=== PATIENT | male | born 1940 | race Caucasian/White ===

== ENCOUNTER 2016-08-14 20:28 | Inpatient (IN) | payer MEDICARE, MEDICAID ==
[~2016-08-14] VITALS: Ht 188 cm; Wt 97.1 kg
--- NOTE | 2016-08-14 21:19 | PHYS DOC ---
Past Medical History Past Medical History: GERD, Hypertension Additional Past Medical Histor: POOR HISTORIAN Past Surgical History: Other Additional Past Surgical Histo: UNKNOWN Additional Information: CHEWS TABACCO Alcohol Use: Heavy Drug Use: None Adult General Chief Complaint Chief Complaint: ABDOMINAL PAIN HPI HPI Patient is a 76 year old female who presents with chest and abdominal pain. Patient reports a few hours prior to arrival he started having upper abdominal pain that radiates up into his chest. He describes sharp pain with no clear inciting or mitigating factors. He also reports abdominal distention when the pain started. Is accompanied by nausea, and one episode of emesis. He has not taken anything for pain prior to arrival. He does report some similar episodes in the past when drinking. He last drank on . Review of Systems Review of Systems Constitutional: Denies fever or chills Eyes: Denies change in visual acuity or eye pain HENT: Denies nasal congestion or sore throat Respiratory: Denies cough or shortness of breath Cardiovascular: Substernal chest pain GI: Upper abdominal pain, nausea, vomiting. Denies bloody stools or diarrhea : Denies dysuria or hematuria Musculoskeletal: Denies back pain or joint pain Integument: Denies rash or skin lesions Neurologic: Denies headache, focal weakness or sensory changes Current Medications Current Medications Current Medications Medications (Trade) Dose Ordered Sig/Luzma Start Time Stop Time Status Last Admin Dose Admin Acetaminophen (Tylenol) 650 mg PRN Q4HRS PRN 08/15/16 00:15 08/16/16 00:14 Aspirin (Children'S Aspirin) 324 mg 1X ONCE 08/15/16 00:15 08/15/16 00:16 DC Famotidine (Pepcid) 20 mg 1X ONCE 08/14/16 21:30 08/14/16 21:31 DC 08/14/16 22:01 20 MG Hydralazine HCl (Apresoline) 10 mg 1X ONCE 08/14/16 21:30 08/14/16 21:31 DC 08/14/16 22:00 10 MG Info (Do NOT chart on this entry -- for MONITORING) 1 each PRN DAILY PRN 08/14/16 22:15 08/16/16 22:14 Iohexol (Omnipaque 300 Mg/ml) 75 ml 1X ONCE 08/14/16 22:15 3/11/17 22:16 DC 08/14/16 22:25 75 ML Morphine Sulfate 4 mg 4 mg PRN Q2HR PRN 08/15/16 00:15 08/16/16 00:14 Ondansetron HCl (Zofran) 4 mg PRN Q8HRS PRN 08/15/16 00:15 08/16/16 00:14 Sodium Chloride (Iv Sodium Chloride 0.9% 1000ml Bag) 1,000 ml @ 125 mls/hr Q8H 08/15/16 00:15 08/16/16 00:14 Allergies Allergies Allergies Coded Allergies Type Severity Reaction Last Updated Verified No Known Drug Allergies 08/14/16 No Physical Exam Physical Exam Constitutional: Well developed, well nourished, no acute distress, non-toxic appearance HENT: Normocephalic, atraumatic, bilateral external ears normal Eyes: EOMI, conjunctiva normal, no discharge Neck: Normal range of motion, no stridor Cardiovascular: Bradycardia, regular rhythm, no murmur Lungs & Thorax: Bilateral breath sounds clear to auscultation Abdomen: Bowel sounds normal, soft, non-distended, epigastric TTP without guarding or rebound Skin: Warm, dry, no erythema, no rash Extremities: No obvious deformity, no edema Neurologic: Alert and oriented X 3, no gross deficits noted Current Patient Data Vital Signs Vital Signs Date Time Temp Pulse Resp B/P Pulse Ox O2 Delivery O2 Flow Rate FiO2 08/15/16 00:12 66 146/82 97 Room Air 08/14/16 22:01 18 08/14/16 20:48 97.9 97.9 Lab Values Laboratory Tests Test 08/14/16 20:45 White Blood Count 10.2x10^3/uL (4.0-11.0) Red Blood Count 4.38x10^6/uL (4.30-5.70) Hemoglobin 14.9g/dL (13.0-17.5) Hematocrit 43.7% (39.0-53.0) Mean Corpuscular Volume 100fL (79-100) Mean Corpuscular Hemoglobin 34pg (25-35) Mean Corpuscular Hemoglobin Concent 34g/dL (31-37) Red Cell Distribution Width 12.9% (11.5-14.5) Platelet Count 218x10^3/uL (140-400) Neutrophils (%) (Auto) 74% (31-73) H Lymphocytes (%) (Auto) 19% (24-48) L Monocytes (%) (Auto) 6% (0-9) Eosinophils (%) (Auto) 1% (0-3) Basophils (%) (Auto) 1% (0-3) Neutrophils # (Auto) 7.5x10^3uL (1.8-7.7) Lymphocytes # (Auto) 1.9x10^3/uL (1.0-4.8) Monocytes # (Auto) 0.6x10^3/uL (0.0-1.1) Eosinophils # (Auto) 0.1x10^3/uL (0.0-0.7) Basophils # (Auto) 0.0x10^3/uL (0.0-0.2) Sodium Level 140mmol/L (136-145) Potassium Level 3.7mmol/L (3.5-5.1) Chloride Level 103mmol/L (98-107) Carbon Dioxide Level 26mmol/L (21-32) Anion Gap 11 (6-14) Blood Urea Nitrogen 21mg/dL (8-26) Creatinine 1.0mg/dL (0.7-1.3) Estimated GFR (Cockcroft-Gault) 72.5 BUN/Creatinine Ratio 21 (6-20) H Glucose Level 110mg/dL (70-99) H Calcium Level 9.2mg/dL (8.5-10.1) Total Bilirubin 0.4mg/dL (0.2-1.0) Aspartate Amino Transferase (AST) 27U/L (15-37) Alanine Aminotransferase (ALT) 57U/L (16-63) Alkaline Phosphatase 48U/L (46-116) Troponin I Quantitative < 0.017ng/mL (0.000-0.055) Total Protein 7.6g/dL (6.4-8.2) Albumin 3.8g/dL (3.4-5.0) Albumin/Globulin Ratio 1.0 (1.0-1.7) Lipase 230U/L (73-393) Laboratory Tests 08/14/16 20:45 Laboratory Tests 08/14/16 20:45 EKG EKG EKG (my read): Sinus bradycardia, rate 50, borderline LAD, IVCD, TWI inferior leads, no acute ST changes Radiology/Procedures Radiology/Procedures CT A/P: IMPRESSION Possible findings of cholecystitis. Evaluation of the GI tract is somewhat limited by lack of oral contrast. There are tubular fluid-filled structures near the cecum. These probably all represent distal small bowel, although a dilated inflamed appendix could have a similar appearance. CXR (my read): No acute abnormality RUQ US: Pending Course & Med Decision Making Course & Med Decision Making Pertinent Labs and Imaging studies reviewed. (See chart for details) Patient is 76-year-old male who presents with abdominal and chest pain. Patient simply be alcoholic gastritis, versus or other possibilities such as pancreatitis or ACS. Will obtain chest x-ray, CT abdomen/pelvis, EKG, labs to evaluate. Aspirin, pain meds, Pepcid, nausea meds ordered. Hydralazine ordered for elevated blood pressure. EKG and imaging results as above. Blood work unremarkable. No clinical evidence of appendicitis. Will obtain right upper quadrant ultrasound to evaluate gallbladder further (still pending at this time) . Discussed results with patient. Discussed with Dr. Greene, will admit under her care for further evaluation and treatment. Dragon Disclaimer Dragon Disclaimer This electronic medical record was generated, in whole or in part, using a voice recognition dictation system. Departure Departure Impression: Primary Impression: Chest pain Additional Impression: Abdominal pain Disposition: ADMITTED INPATIENT Admitting Physician: Renu Greene Condition: STABLE Referrals: TARIK HUDSON MD (PCP) Problem Qualifiers NADEGE MEDINA MD Aug 14, 2016 21:19
[2016-08-14 21:29] LABS: BASO % 1 % (0-3); EOS % 1 % (0-3); HEMATOCRIT 43.7 % (39.0-53.0); HEMOGLOBIN 14.9 g/dL (13.0-17.5); LYMPH # 1.9 x10^3/uL (1.0-4.8); LYMPH % 19 % (24-48); MEAN CORPUSCULAR HEMOGLOBIN 34 pg (25-35); MEAN CORPUSCULAR HGB CONC 34 g/dL (31-37); MEAN CORPUSCULAR VOLUME 100 fL (79-100); MONO % 6 % (0-9); NEUT % 74 % (31-73); PLATELET COUNT 218 x10^3/uL (140-400); RED BLOOD COUNT 4.38 x10^6/uL (4.30-5.70); RED CELL DISTRIBUTION WIDTH 12.9 % (11.5-14.5); WHITE BLOOD COUNT 10.2 x10^3/uL (4.0-11.0)
[2016-08-14] MEDS ORDERED: hydrALAZINE 20 MG/ML VIAL. IVP ONE (21:30)
[2016-08-14] MEDS ORDERED: FAMOTIDINE 20 MG/2 ML VIAL IVP ONE (21:30)
[2016-08-14] MEDS ORDERED: MORPHINE SULFATE 4 MG/ML DISP.SYRIN. IV ONE (21:30)
[2016-08-14] MEDS ORDERED: ONDANSETRON PF 4 MG/2 ML VIAL. IV ONE (21:30)
[2016-08-14 21:47] LABS: CALCIUM 9.2 mg/dL (8.5-10.1); GFR 72.5; POTASSIUM 3.7 mmol/L (3.5-5.1)
[2016-08-14 21:53] LABS: ALBUMIN 3.8 g/dL (3.4-5.0); TOTAL BILIRUBIN 0.4 mg/dL (0.2-1.0); TOTAL PROTEIN 7.6 g/dL (6.4-8.2)
[2016-08-14] MEDS ORDERED: CONTRAST GIVEN MC PRN (22:15)
[2016-08-14] MEDS ORDERED: IOHEXOL 300 MG/ML 75 ML VIAL IV ONE (22:15)
--- NOTE | 2016-08-14 22:44 | RAD ---
PROCEDURE CT abdomen and pelvis with IV contrast 08/14/2016. HISTORY Upper abdominal pain and distention. TECHNIQUE CT images were performed through the abdomen and pelvis using an infusion of 75 milliliters Omnipaque 300. Exposure: One or more of the following individualized dose reduction techniques were utilized for this exam: 1. Automated exposure control. 2. Adjustment of the mA and/or kV according to patient size. 3. Use of iterative reconstruction technique. COMPARISON FINDINGS Some increased peripheral lung markings are seen and may indicate mild fibrosis. The lung bases otherwise are clear. No focal liver parenchymal abnormality is seen. There may be mild fatty infiltration. The spleen appears normal. No calcified gallstones are seen, but there is suggestion of some gallbladder wall thickening and possibly surrounding edema. Both kidneys enhance with contrast. No mass or obstruction is seen. The adrenal glands and pancreas appear normal. No retroperitoneal or mesenteric adenopathy is seen. There is no apparent abdominal soft tissue mass or other inflammatory process. Evaluation of the GI tract is somewhat limited by lack of oral contrast. There is a tubular fluid-filled structure lying near the cecum. It is difficult to determine if this is small bowel or the appendix. It would be abnormally dilated for an appendix, although also seems to be too elongated and redundant to represent the appendix, and is probably distal small bowel. Images through the pelvis show no abnormality of the distal ureters or bladder. No pelvic or inguinal adenopathy is seen. There is no apparent pelvic soft tissue mass or other inflammatory process. There is some diverticulosis of the colon without evidence of active diverticulitis. IMPRESSION Possible findings of cholecystitis. Evaluation of the GI tract is somewhat limited by lack of oral contrast. There are tubular fluid-filled structures near the cecum. These probably all represent distal small bowel, although a dilated inflamed appendix could have a similar appearance. Electronically signed by: Erick Eng (Aug 14, 2016 22:42:12)
[2016-08-15] MEDS ORDERED: ACETAMINOPHEN 325 MG TABLET. PO PRN ×2 (00:15→11:15)
[2016-08-15] MEDS ORDERED: ONDANSETRON PF 4 MG/2 ML VIAL. IV PRN ×2 (00:15→11:15)
[2016-08-15] MEDS ORDERED: MORPHINE SULFATE 4 MG/ML DISP.SYRIN. IV PRN (00:15)
[2016-08-15] MEDS ORDERED: ASPIRIN 81 MG TAB.CHEW PO ONE (00:15)
--- NOTE | 2016-08-15 00:45 | ACF ---
Admit Criteria Forms Admit Criteria Forms Admit Criteria Forms CHEST PAIN Clinical Indications for Admission to Inpatient Care (Place 'X' for any and all applicable criteria): Admission is indicated for chest pain and ANY ONE of the following(1)(2)(3)(4)(5 ): [ ]I. Angina with acute coronary syndrome (Also use Myocardial Infarction or Angina guideline) [X]II. Hemodynamic instability [ ]III. Angina needing acute intervention as indicated by ALL of the following( 11)(12): [ ]a) Unstable angina is present as indicated by angina that is ANY ONE of the following: [ ]i) New onset [ ]ii) Nocturnal [ ]iii) Prolonged at rest [ ]iv) Progressive [ ]b) Angina warrants acute intervention as indicated by ANY ONE of the following: [ ]i) Recurrent angina (e.g, not responding as previously to treatment) [ ]ii) Angina at rest or with low-level activities despite initial medical therapy [ ]iii) New or presumably new ST-segment depression on ECG [ ]iv) Signs or symptoms of heart failure (eg, dyspnea, pulmonary edema) [ ]v) New or worsening mitral regurgitation [ ]vi) Hemodynamic instability [ ]vii) Dangerous arrhythmia (eg, sustained ventricular tachycardia) [ ]viii) History of percutaneous coronary intervention within 6 months [ ]ix) History of coronary artery bypass graft surgery [ ]x) WILFRED risk score of 2 or greater[A] [ ]xi) History of Diabetes(14) [ ]xii) High-risk cardiac ischemia findings on noninvasive testing (e.g, echocardiogram, treadmill testing, nuclear scan) [ ]xiii) Chronic renal insufficiency (ie, estimated GFR less than 60 mL/min/1.732m) [ ]xiv) Left ventricular ejection fraction less than 40% [ ]IV. Evidence of DC (eg, cardiac biomarkers positive, ST-segment elevation on ECG) also use Myocardial Infarction Criteria Form. [ ]V. Pulmonary edema [ ]. Respiratory distress [ ]VII. Chest pain indicative of serious diagnosis other than coronary artery disease (eg, aortic dissection) [ ]VIII. Contraindications and/or Inappropriate clinical situations for Observational Care in patients with Chest Pain, when ANY ONE of the following is required: [ ]a) Patient with risk factor for pulmonary embolism, acute coronary syndrome and myocardial infarction (18) [ ]b) Patient with Pulmonary embolism require an average LOS of 4.3 days, therefore emergency department observation management is inappropriate 18,23 [ ]c) Painful condition/s in the elderly, have the highest rate of recidivism after emergency department observation management (10.8%) 20,21,22 [ ]d) Elevated cardiac biomarker requires intensive and exhaustive care (19) [ ]IX. General contraindications and/or Inappropriate clinical situations for Observational Care in patients with Chest Pain, when ANY ONE of the following is required: [ ]a) Prediction of prolongation of LOS based on ANY ONE of the following may be considered as a contraindication for observational care 2, 3, 4, 5, 6, 7, 8, 9, 10, 11 [ ]i) Age > 65 yrs. [ ]ii) Patient arriving by ambulance [ ]iii) Patient with high acuity [ ]iv) Patient requiring vital sign monitoring [ ]v) Patient on IV medication [ ]b) Systolic blood pressures 180mmHg 3,12 [ ]c) Patient with altered mental status including delirium and other alteration of consciousness, (3) [ ]d) Patient whose discharge disposition will be to a jail home or rehabilitation home should not be managed in Emergency Department Observation Unit. CMS rule requires 3 days hospital stay before such placement. 3,13 [ ]e) Patient with failure to thrive due to broad array of etiologies 3,16,17 [ ]f) Inability to ambulate 3,14 Extended stay beyond goal length of stay may be needed for (1)(28): [ ]a) Specific condition diagnosed after evaluation (eg, pulmonary embolism, aortic dissection) [ ]b) Unstable angina [ ]c) Continued suspicion of acute coronary syndrome with inability to complete needed cardiac evaluation (eg, patient clinically unable to undergo stress testing) [ ]d) Myocardial infarction (Contents from ANGINA and CHEST PAIN clinical indications for admission to inpatient care have been integrated in this form) The original [employer] content created by [employer] has been revised. The portions of the content which have been revised are identified through the use of italic text or in bold, and [email or web address] has neither reviewed nor approved the modified material. All other unmodified content is copyright [employer]. Please see references footnoted in the original [employer] edition 2016 JOSIAS TREVIÑO Aug 15, 2016 00:45
[2016-08-15] MEDS: IV NORMAL SALINE 1000ML BAG 1,000 ML IV SCH ×4 (02:00→20:32)
[2016-08-15 03:00] VITALS: BP 156/96
[2016-08-15] MEDS ORDERED: Aspirin PO (03:22)
[2016-08-15] MEDS ORDERED: Vitamin PO (03:24)
[2016-08-15] MEDS ORDERED: Losartan PO (03:26)
[2016-08-15] MEDS ORDERED: Flomax PO (03:27)
[2016-08-15] MEDS ORDERED: Ranitidine PO (03:31)
[2016-08-15 07:00] VITALS: BP 165/92
--- NOTE | 2016-08-15 10:07 | RAD ---
EXAM: Right upper quadrant ultrasound. HISTORY: Right upper quadrant pain. COMPARISON: None. FINDINGS: Sonographic evaluation of the right upper quadrant was performed. Hyperechogenicity of the hepatic parenchyma is consistent with diffuse hepatic steatosis. This lowers sensitivity for focal lesions. None are seen. The liver is at least mildly enlarged spanning 18.5 cm. There are many stones throughout the gallbladder. There is no pericholecystic fluid or wall thickening. There is no sonographic Sanders sign. The common duct measures 4 mm. The visualized portions of the head of the pancreas reveal no abnormality. The right kidney measures 11.8 cm. Cortical thickness and echogenicity are preserved. There is no hydronephrosis. The visualized portions of the abdominal aorta and inferior vena cava are grossly patent and normal in caliber. IMPRESSION: 1. Cholelithiasis without sonographic evidence of acute cholecystitis. 2. Diffuse hepatic steatosis.
--- NOTE | 2016-08-15 10:08 | RAD ---
EXAM: Chest one view. HISTORY: Chest pain. COMPARISON: 08/14/2016. FINDINGS: A frontal view of the chest is obtained. There are mild interstitial opacities in the lung bases. There is no pneumothorax or pleural effusion. The heart is not enlarged. IMPRESSION: 1. Mild basilar interstitial opacities are consistent with interstitial lung disease on comparison with prior CT.
[2016-08-15 11:00] VITALS: BP 110/64
[2016-08-15] MEDS ORDERED: MORPHINE SULFATE 2 MG/ML DISP.SYRIN. IV PRN ×2 (11:15→14:00)
[2016-08-15] MEDS ORDERED: TRAMADOL 50 MG TABLET. PO PRN (11:15)
--- NOTE | 2016-08-15 12:45 | PDOC2 ---
GI CONSULT Date Date/Time DATE: 08/15/16 TIME: 12:34 Providers Attending Physician Tye Greene MD Referring Physician Consulting Physician Dr. Fair History of Present Illness HPI 76 yo WM with long history of vague abd symptoms- distension, mild pain- put on ranitidine last year without improvement but did not f/u with any testing. His pain and distension worsened and he presented for admission. He describes BM daily but some irregularly in timing, had some nausea with pain but denies chronic n/v or heartburn. Does admit to poor diet and regular binge alcohol use - drinks heavily 3 days per week- ? thinks his symptoms in past may have worsened after drinking or eating but this episode did not start until 2 days after last alcohol on . Had BM recently without change in symptoms and had self induced emesis without improvement, so he came to ER. No fever, jaundice, bleeding History Past Medical History mild HTN alcohol abuse Past Surgical History eye surgery as a child Social/Personal History regular binge drinker Review of Systems Gastrointestinal: Yes: abdominal pain (diffuse but more upper) Allergies Allergies Allergies Coded Allergies Type Severity Reaction Last Updated Verified No Known Drug Allergies 08/14/16 No Medications Medications Current Medications Ondansetron HCl (Zofran) 4 mg 1X ONCE IV Last administered on 08/14/16 22:00 ; Start 08/14/16 at 21:30; Stop 08/14/16 at 21:31; Status DC Famotidine (Pepcid) 20 mg 1X ONCE IVP Last administered on 08/14/16 22:01; Start 08/14/16 at 21:30; Stop 08/14/16 at 21:31; Status DC Morphine Sulfate 4 mg 1X ONCE IV Last administered on 08/14/16 22:01; Start 08/14/16 at 21:30; Stop 08/14/16 at 21:31; Status DC Hydralazine HCl (Apresoline) 10 mg 1X ONCE IVP Last administered on 08/14/16 22:00; Start 08/14/16 at 21:30; Stop 08/14/16 at 21:31; Status DC Iohexol (Omnipaque 300 Mg/ml) 75 ml 1X ONCE IV Last administered on 08/14/16 22:25; Start 08/14/16 at 22:15; Stop 08/14/16 at 22:16; Status DC Info (Do NOT chart on this entry -- for MONITORING) 1 each PRN DAILY PRN MC SEE COMMENTS; Start 08/14/16 at 22:15; Stop 08/16/16 at 22:14 Aspirin (Children'S Aspirin) 324 mg 1X ONCE PO Last administered on 08/15/16 01:06; Start 08/15/16 at 00:15; Stop 08/15/16 at 00:16; Status DC Ondansetron HCl (Zofran) 4 mg PRN Q8HRS PRN IV NAUSEA/VOMITING; Start 08/15/16 at 00:15; Stop 08/16/16 at 00:14 Morphine Sulfate 4 mg 4 mg PRN Q2HR PRN IV PAIN Last administered on 08/15/16 08:58; Start 08/15/16 at 00:15; Stop 08/16/16 at 00:14 Sodium Chloride (Iv Sodium Chloride 0.9% 1000ml Bag) 1,000 ml @ 125 mls/hr Q8H IV Last administered on 08/15/16 11:39; Start 08/15/16 at 00:15; Stop at 00:14 Acetaminophen (Tylenol) 650 mg PRN Q4HRS PRN PO FEVER; Start 08/15/16 at 00:15 ; Stop 08/16/16 at 00:14 Acetaminophen (Tylenol) 650 mg PRN Q6HRS PRN PO MILD PAIN / TEMP; Start at 11:15 Ondansetron HCl (Zofran) 4 mg PRN Q6HRS PRN IV NAUSEA/VOMITING; Start 08/15/16 at 11:15 Tramadol HCl (Ultram) 50 mg PRN Q6HRS PRN PO PAIN; Start 08/15/16 at 11:15 Morphine Sulfate 2 mg PRN Q2HR PRN IV PAIN; Start 08/15/16 at 11:15 Active Scripts Active Reported [Ranitidine] PO [Flomax] PO [Losartan] PO DAILY [Vitamin] 1 PO DAILY [Aspirin] Mg PO DAILY Physical Exam Physical Exam VSS chest=- clear Cor- RRR abd- soft, mildly distended. Mildly tender upper abd with moderately severe tenderness in RUQ to palp- no mass, good bowel sounds extrem- no CCE Neuro- non focal, slow speech pattern Labs Labs Laboratory Tests Test 08/14/16 20:45 08/15/16 06:27 White Blood Count 10.2x10^3/uL (4.0-11.0) Red Blood Count 4.38x10^6/uL (4.30-5.70) Hemoglobin 14.9g/dL (13.0-17.5) Hematocrit 43.7% (39.0-53.0) Mean Corpuscular Volume 100fL (79-100) Mean Corpuscular Hemoglobin 34pg (25-35) Mean Corpuscular Hemoglobin Concent 34g/dL (31-37) Red Cell Distribution Width 12.9% (11.5-14.5) Platelet Count 218x10^3/uL (140-400) Neutrophils (%) (Auto) 74% (31-73) Lymphocytes (%) (Auto) 19% (24-48) Monocytes (%) (Auto) 6% (0-9) Eosinophils (%) (Auto) 1% (0-3) Basophils (%) (Auto) 1% (0-3) Neutrophils # (Auto) 7.5x10^3uL (1.8-7.7) Lymphocytes # (Auto) 1.9x10^3/uL (1.0-4.8) Monocytes # (Auto) 0.6x10^3/uL (0.0-1.1) Eosinophils # (Auto) 0.1x10^3/uL (0.0-0.7) Basophils # (Auto) 0.0x10^3/uL (0.0-0.2) Sodium Level 140mmol/L (136-145) Potassium Level 3.7mmol/L (3.5-5.1) Chloride Level 103mmol/L (98-107) Carbon Dioxide Level 26mmol/L (21-32) Anion Gap 11 (6-14) Blood Urea Nitrogen 21mg/dL (8-26) Creatinine 1.0mg/dL (0.7-1.3) Estimated GFR (Cockcroft-Gault) 72.5 BUN/Creatinine Ratio 21 (6-20) Glucose Level 110mg/dL (70-99) Calcium Level 9.2mg/dL (8.5-10.1) Total Bilirubin 0.4mg/dL (0.2-1.0) Aspartate Amino Transf (AST/SGOT) 27U/L (15-37) Alanine Aminotransferase (ALT/SGPT) 57U/L (16-63) Alkaline Phosphatase 48U/L (46-116) Troponin I Quantitative < 0.017ng/mL (0.000-0.055) < 0.017ng/mL (0.000-0.055) Total Protein 7.6g/dL (6.4-8.2) Albumin 3.8g/dL (3.4-5.0) Albumin/Globulin Ratio 1.0 (1.0-1.7) Lipase 230U/L (73-393) Imaging Imaging US and CT- cholelithasis, hepatomegaly- Assessment Assessment Chronic abd symptoms more severe today- history sketchy but sounds like worse after certain meals and alcohol in past but no w/u persued. Did not improve with ranitidine a year ago. Now more severe pain and tenderness in RUQ- suspicious for cholecystitis No prior EGD or colonoscopy reported Problems: Plan Plan REcommend surgery consult for their opinion in this case PPI CLD Elective colonoscopy/EGD later as outpt Thank you for allowing us to participate in the care of your patient. We will continue to follow the patient with you and provide an appropriate recommendation as it becomes available. PUJA FAIR MD Aug 15, 2016 12:45
--- NOTE | 2016-08-15 12:50 | EKG ---
[facility] [address] [place] [address] Test Date: 2016-08-14 Test Time: 20:45:42 Pat Name: MARIEL DODGE Department: Room: Gender: M Branch General Manager: : [id number] Requested By: NADEGE MEDINA Order Number: [id number] Reading MD: Measurements Intervals [place] Rate: 50 P: -65 FL: 176 QRS: -4 QRSD: 128 T: -64 QT: 482 QTc: 442 Interpretive Statements SINUS RHYTHM LEFTWARD AXIS RIGHT BUNDLE BRANCH BLOCK QRS(T) CONTOUR ABNORMALITY CONSISTENT WITH INFERIOR INFARCT AGE UNDETERMINED RI6.01 Unconfirmed report No previous ECG available for comparison
--- NOTE | 2016-08-15 13:59 | PDOC1 ---
History and Physical Date of Admission Date of Admission 08/15/16 Identification/Chief Complaint Chief Complaint abd distention Problems: Source Source: Chart review, Patient History of Present Illness History of Present Illness HPI HPI Patient is a 76 year old female who presents with abdominal pain yesterday. very poor historian. Pt is a heavy drinker, 3 times a week at least , large amount. He feels his abd distended, with lower abd pain then moved to upper abd. He put his finger into his mouth to induce vomiting. he denies chest pain. irregular BM. but denies constipation or diarrhea. Past Medical History Cardiovascular: HTN Past Surgical History Past Surgical History: No pertinent history Family History Family History: No Significant Social History Smoke: No ALCOHOL: heavy Drugs: None Current Problem List Problem List Problems Medical Problems: (1) Abdominal pain Status: Acute (2) Chest pain Status: Acute Current Medications Current Medications Current Medications Medications (Trade) Dose Ordered Sig/Luzma Start Time Stop Time Status Last Admin Dose Admin Acetaminophen (Tylenol) 650 mg PRN Q6HRS PRN 08/15/16 11:15 Aspirin (Children'S Aspirin) 324 mg 1X ONCE 08/15/16 00:15 08/15/16 00:16 DC 08/15/16 01:06 324 MG Famotidine (Pepcid) 20 mg 1X ONCE 08/14/16 21:30 08/14/16 21:31 DC 08/14/16 22:01 20 MG Hydralazine HCl (Apresoline) 10 mg 1X ONCE 08/14/16 21:30 08/14/16 21:31 DC 08/14/16 22:00 10 MG Info (Do NOT chart on this entry -- for MONITORING) 1 each PRN DAILY PRN 08/14/16 22:15 08/16/16 22:14 Iohexol (Omnipaque 300 Mg/ml) 75 ml 1X ONCE 08/14/16 22:15 08/14/16 22:16 DC 08/14/16 22:25 75 ML Morphine Sulfate 2 mg PRN Q2HR PRN 08/15/16 11:15 Morphine Sulfate 4 mg 4 mg PRN Q2HR PRN 08/15/16 00:15 08/16/16 00:14 08/15/16 08:58 4 MG Ondansetron HCl (Zofran) 4 mg PRN Q6HRS PRN 08/15/16 11:15 Sodium Chloride (Iv Sodium Chloride 0.9% 1000ml Bag) 1,000 ml @ 125 mls/hr Q8H 08/15/16 00:15 08/16/16 00:14 08/15/16 11:39 125 MLS/HR Tramadol HCl (Ultram) 50 mg PRN Q6HRS PRN 08/15/16 11:15 Allergies Allergies Allergies Coded Allergies Type Severity Reaction Last Updated Verified No Known Drug Allergies 08/14/16 No ROS Review of System CONSTITUTIONAL: No fever or chills EYES: No recent changes SKIN: No rash or itching CARDIOVASCULAR: No chest pain, syncope, palpitations, or edema RESPIRATORY: No SOB or cough GASTROINTESTINAL: No nausea, vomiting or abdominal pain NEUROLOGICAL: No headaches or weakness ENDOCRINE: No cold or heat intolerance GENITOURINARY: No urgency or frequency of urination MUSCULOSKELETAL: No back pain or joint pain LYMPHATICS: No enlarged lymph nodes PSYCHIATRIC: No anxiety or depression Physical Exam Physical Exam GEN.: No apparent distress. Alert and oriented. HEENT: Head is normocephalic, atraumatic NECK: Supple. LUNGS: Clear to auscultation. HEART: RRR, S1, S2 present. Peripheral pulses intact ABDOMEN: Soft, Positive bowel sounds. mild tenderness EXTREMITIES: Without any cyanosis. NEUROLOGIC: Normal speech, normal tone PSYCHIATRIC: Normal affect, normal mood. SKIN: No ulcerations Vitals Vitals Vital Signs Date Time Temp Pulse Resp B/P Pulse Ox O2 Delivery O2 Flow Rate FiO2 08/15/16 09:50 16 Room Air 08/15/16 07:00 98.0 57 165/92 96 98.0 Labs Labs Laboratory Tests Test 08/14/16 20:45 08/15/16 06:27 White Blood Count 10.2x10^3/uL (4.0-11.0) Red Blood Count 4.38x10^6/uL (4.30-5.70) Hemoglobin 14.9g/dL (13.0-17.5) Hematocrit 43.7% (39.0-53.0) Mean Corpuscular Volume 100fL (79-100) Mean Corpuscular Hemoglobin 34pg (25-35) Mean Corpuscular Hemoglobin Concent 34g/dL (31-37) Red Cell Distribution Width 12.9% (11.5-14.5) Platelet Count 218x10^3/uL (140-400) Neutrophils (%) (Auto) 74% (31-73) Lymphocytes (%) (Auto) 19% (24-48) Monocytes (%) (Auto) 6% (0-9) Eosinophils (%) (Auto) 1% (0-3) Basophils (%) (Auto) 1% (0-3) Neutrophils # (Auto) 7.5x10^3uL (1.8-7.7) Lymphocytes # (Auto) 1.9x10^3/uL (1.0-4.8) Monocytes # (Auto) 0.6x10^3/uL (0.0-1.1) Eosinophils # (Auto) 0.1x10^3/uL (0.0-0.7) Basophils # (Auto) 0.0x10^3/uL (0.0-0.2) Sodium Level 140mmol/L (136-145) Potassium Level 3.7mmol/L (3.5-5.1) Chloride Level 103mmol/L (98-107) Carbon Dioxide Level 26mmol/L (21-32) Anion Gap 11 (6-14) Blood Urea Nitrogen 21mg/dL (8-26) Creatinine 1.0mg/dL (0.7-1.3) Estimated GFR (Cockcroft-Gault) 72.5 BUN/Creatinine Ratio 21 (6-20) Glucose Level 110mg/dL (70-99) Calcium Level 9.2mg/dL (8.5-10.1) Total Bilirubin 0.4mg/dL (0.2-1.0) Aspartate Amino Transf (AST/SGOT) 27U/L (15-37) Alanine Aminotransferase (ALT/SGPT) 57U/L (16-63) Alkaline Phosphatase 48U/L (46-116) Troponin I Quantitative < 0.017ng/mL (0.000-0.055) < 0.017ng/mL (0.000-0.055) Total Protein 7.6g/dL (6.4-8.2) Albumin 3.8g/dL (3.4-5.0) Albumin/Globulin Ratio 1.0 (1.0-1.7) Lipase 230U/L (73-393) Laboratory Tests Test 08/14/16 20:45 08/15/16 06:27 White Blood Count 10.2x10^3/uL (4.0-11.0) Red Blood Count 4.38x10^6/uL (4.30-5.70) Hemoglobin 14.9g/dL (13.0-17.5) Hematocrit 43.7% (39.0-53.0) Mean Corpuscular Volume 100fL (79-100) Mean Corpuscular Hemoglobin 34pg (25-35) Mean Corpuscular Hemoglobin Concent 34g/dL (31-37) Red Cell Distribution Width 12.9% (11.5-14.5) Platelet Count 218x10^3/uL (140-400) Neutrophils (%) (Auto) 74% (31-73) Lymphocytes (%) (Auto) 19% (24-48) Monocytes (%) (Auto) 6% (0-9) Eosinophils (%) (Auto) 1% (0-3) Basophils (%) (Auto) 1% (0-3) Neutrophils # (Auto) 7.5x10^3uL (1.8-7.7) Lymphocytes # (Auto) 1.9x10^3/uL (1.0-4.8) Monocytes # (Auto) 0.6x10^3/uL (0.0-1.1) Eosinophils # (Auto) 0.1x10^3/uL (0.0-0.7) Basophils # (Auto) 0.0x10^3/uL (0.0-0.2) Sodium Level 140mmol/L (136-145) Potassium Level 3.7mmol/L (3.5-5.1) Chloride Level 103mmol/L (98-107) Carbon Dioxide Level 26mmol/L (21-32) Anion Gap 11 (6-14) Blood Urea Nitrogen 21mg/dL (8-26) Creatinine 1.0mg/dL (0.7-1.3) Estimated GFR (Cockcroft-Gault) 72.5 BUN/Creatinine Ratio 21 (6-20) Glucose Level 110mg/dL (70-99) Calcium Level 9.2mg/dL (8.5-10.1) Total Bilirubin 0.4mg/dL (0.2-1.0) Aspartate Amino Transf (AST/SGOT) 27U/L (15-37) Alanine Aminotransferase (ALT/SGPT) 57U/L (16-63) Alkaline Phosphatase 48U/L (46-116) Troponin I Quantitative < 0.017ng/mL (0.000-0.055) < 0.017ng/mL (0.000-0.055) Total Protein 7.6g/dL (6.4-8.2) Albumin 3.8g/dL (3.4-5.0) Albumin/Globulin Ratio 1.0 (1.0-1.7) Lipase 230U/L (73-393) VTE Prophylaxis Ordered VTE Prophylaxis Devices: Yes VTE Pharmacological Prophylaxi: Yes Assessment/Plan Assessment/Plan 1. abd pain, 2/2 gall stone? 2, cholelithiasis on CT 3. GERD 4. HTN 5. OBESITY 6. ALcoholism plan: 1. gi, sx consult 2. dvt, gi ppx clear liquid diet now need home meds labs tmr pain control HERMINIO BUTLER MD Aug 15, 2016 13:59
[2016-08-15] MEDS: PANTOPRAZOLE 40 MG TABLET. PO SCH (14:33)
[2016-08-15 15:00] VITALS: BP 168/80
[2016-08-15] MEDS ORDERED: ENOXAPARIN 40 MG/0.4 ML DISP.SYRIN. SQ SCH (16:00)
--- NOTE | 2016-08-15 16:42 | PDOC ---
SURGICAL PROGRESS NOTE Subjective 76 yo M with RUQ pain US-gallstones but no inflammation TTP RUQ, epigastric I/R RUQ pain will check PIPPDA and consider lap joaquin Thanks for consult! [id number] Vital Signs Vital Signs Date Time Temp Pulse Resp B/P Pulse Ox O2 Delivery O2 Flow Rate FiO2 08/15/16 15:38 14 Room Air 08/15/16 15:00 98.0 62 168/80 94 98.0 I&O Intake and Output 08/15/16 07:00 Intake Total 0 ml Balance 0 ml Intake Oral 0 ml Labs Laboratory Tests Test 08/14/16 20:45 08/15/16 06:27 08/15/16 14:45 White Blood Count 10.2x10^3/uL (4.0-11.0) Red Blood Count 4.38x10^6/uL (4.30-5.70) Hemoglobin 14.9g/dL (13.0-17.5) Hematocrit 43.7% (39.0-53.0) Mean Corpuscular Volume 100fL (79-100) Mean Corpuscular Hemoglobin 34pg (25-35) Mean Corpuscular Hemoglobin Concent 34g/dL (31-37) Red Cell Distribution Width 12.9% (11.5-14.5) Platelet Count 218x10^3/uL (140-400) Neutrophils (%) (Auto) 74% (31-73) Lymphocytes (%) (Auto) 19% (24-48) Monocytes (%) (Auto) 6% (0-9) Eosinophils (%) (Auto) 1% (0-3) Basophils (%) (Auto) 1% (0-3) Neutrophils # (Auto) 7.5x10^3uL (1.8-7.7) Lymphocytes # (Auto) 1.9x10^3/uL (1.0-4.8) Monocytes # (Auto) 0.6x10^3/uL (0.0-1.1) Eosinophils # (Auto) 0.1x10^3/uL (0.0-0.7) Basophils # (Auto) 0.0x10^3/uL (0.0-0.2) Sodium Level 140mmol/L (136-145) Potassium Level 3.7mmol/L (3.5-5.1) Chloride Level 103mmol/L (98-107) Carbon Dioxide Level 26mmol/L (21-32) Anion Gap 11 (6-14) Blood Urea Nitrogen 21mg/dL (8-26) Creatinine 1.0mg/dL (0.7-1.3) Estimated GFR (Cockcroft-Gault) 72.5 BUN/Creatinine Ratio 21 (6-20) Glucose Level 110mg/dL (70-99) Calcium Level 9.2mg/dL (8.5-10.1) Total Bilirubin 0.4mg/dL (0.2-1.0) Aspartate Amino Transf (AST/SGOT) 27U/L (15-37) Alanine Aminotransferase (ALT/SGPT) 57U/L (16-63) Alkaline Phosphatase 48U/L (46-116) Troponin I Quantitative < 0.017ng/mL (0.000-0.055) < 0.017ng/mL (0.000-0.055) < 0.017ng/mL (0.000-0.055) Total Protein 7.6g/dL (6.4-8.2) Albumin 3.8g/dL (3.4-5.0) Albumin/Globulin Ratio 1.0 (1.0-1.7) Lipase 230U/L (73-393) Laboratory Tests Test 08/14/16 20:45 08/15/16 06:27 08/15/16 14:45 White Blood Count 10.2x10^3/uL (4.0-11.0) Red Blood Count 4.38x10^6/uL (4.30-5.70) Hemoglobin 14.9g/dL (13.0-17.5) Hematocrit 43.7% (39.0-53.0) Mean Corpuscular Volume 100fL (79-100) Mean Corpuscular Hemoglobin 34pg (25-35) Mean Corpuscular Hemoglobin Concent 34g/dL (31-37) Red Cell Distribution Width 12.9% (11.5-14.5) Platelet Count 218x10^3/uL (140-400) Neutrophils (%) (Auto) 74% (31-73) Lymphocytes (%) (Auto) 19% (24-48) Monocytes (%) (Auto) 6% (0-9) Eosinophils (%) (Auto) 1% (0-3) Basophils (%) (Auto) 1% (0-3) Neutrophils # (Auto) 7.5x10^3uL (1.8-7.7) Lymphocytes # (Auto) 1.9x10^3/uL (1.0-4.8) Monocytes # (Auto) 0.6x10^3/uL (0.0-1.1) Eosinophils # (Auto) 0.1x10^3/uL (0.0-0.7) Basophils # (Auto) 0.0x10^3/uL (0.0-0.2) Sodium Level 140mmol/L (136-145) Potassium Level 3.7mmol/L (3.5-5.1) Chloride Level 103mmol/L (98-107) Carbon Dioxide Level 26mmol/L (21-32) Anion Gap 11 (6-14) Blood Urea Nitrogen 21mg/dL (8-26) Creatinine 1.0mg/dL (0.7-1.3) Estimated GFR (Cockcroft-Gault) 72.5 BUN/Creatinine Ratio 21 (6-20) Glucose Level 110mg/dL (70-99) Calcium Level 9.2mg/dL (8.5-10.1) Total Bilirubin 0.4mg/dL (0.2-1.0) Aspartate Amino Transf (AST/SGOT) 27U/L (15-37) Alanine Aminotransferase (ALT/SGPT) 57U/L (16-63) Alkaline Phosphatase 48U/L (46-116) Troponin I Quantitative < 0.017ng/mL (0.000-0.055) < 0.017ng/mL (0.000-0.055) < 0.017ng/mL (0.000-0.055) Total Protein 7.6g/dL (6.4-8.2) Albumin 3.8g/dL (3.4-5.0) Albumin/Globulin Ratio 1.0 (1.0-1.7) Lipase 230U/L (73-393) Problem List Problems Medical Problems: (1) Abdominal pain Status: Acute (2) Chest pain Status: Acute Problems: JAYCEE RAMIREZ MD Aug 15, 2016 16:42
[2016-08-15 19:00] VITALS: BP 151/87
[2016-08-15 23:00] VITALS: BP 138/83
[2016-08-16 03:00] VITALS: BP 132/67
[2016-08-16 06:51] LABS: ALBUMIN 3.2 g/dL (3.4-5.0); CALCIUM 8.2 mg/dL (8.5-10.1); CREATININE 0.9 mg/dL (0.7-1.3); GFR 81.8; POTASSIUM 3.8 mmol/L (3.5-5.1); TOTAL BILIRUBIN 1.3 mg/dL (0.2-1.0); TOTAL PROTEIN 6.4 g/dL (6.4-8.2)
[2016-08-16 06:56] LABS: BASO % 0 % (0-3); EOS % 0 % (0-3); HEMATOCRIT 42.7 % (39.0-53.0); HEMOGLOBIN 14.3 g/dL (13.0-17.5); LYMPH # 1.5 x10^3/uL (1.0-4.8); LYMPH % 8 % (24-48); MEAN CORPUSCULAR HEMOGLOBIN 34 pg (25-35); MEAN CORPUSCULAR HGB CONC 34 g/dL (31-37); MEAN CORPUSCULAR VOLUME 100 fL (79-100); MONO % 7 % (0-9); NEUT % 85 % (31-73); PLATELET COUNT 201 x10^3/uL (140-400); RED BLOOD COUNT 4.26 x10^6/uL (4.30-5.70); WHITE BLOOD COUNT 18.8 x10^3/uL (4.0-11.0)
[2016-08-16 07:00] VITALS: BP 140/86
[2016-08-16] MEDS ORDERED: MORPHINE SULFATE 4 MG/ML DISP.SYRIN. IV ONE (08:30)
[2016-08-16] MEDS ORDERED: MORPHINE SULFATE 4 MG/ML DISP.SYRIN. ONE (08:34)
--- NOTE | 2016-08-16 10:07 | RAD ---
Indication: Abdominal pain for 3 days with nausea. Technique: Hepatobiliary scintigraphy utilized 5.5 mCi technetium 99m labeled Choletec IV. At 1 hour, 4 mg of IV morphine was administered to promote filling of the gallbladder. Findings: There is prompt uptake of radiotracer by the hepatic parenchyma and prompt visualization of the biliary system and duodenal sweep. At 1 hour, the gallbladder was still not visualized. Additional imaging post morphine does not visualize the gallbladder. Ultrasound performed one day earlier demonstrated cholelithiasis but no pericholecystic fluid. Impression: Nonvisualized gallbladder including post morphine administration. Findings are suspicious for acute cholecystitis.
[2016-08-16] MEDS: PANTOPRAZOLE 40 MG TABLET. PO SCH (10:26)
--- NOTE | 2016-08-16 10:26 | PDOC ---
Subjective: Subjective: Ongoing RUQ pain - not bad currently, perhaps had a brief increase in this during PIPIDA. Relates h/o alcohol abuse, has tried to quit before. Says drank 7 beers on . Less abd distention, no BM for a few days. Relates significant pain after eating a lot on Tuesday. Objective: Vital Signs: Vital Signs Date Time Temp Pulse Resp B/P Pulse Ox O2 Delivery O2 Flow Rate FiO2 08/16/16 08:30 16 Room Air 08/16/16 07:00 98.6 88 140/86 98 98.6 Labs: Laboratory Tests Test 08/15/16 14:45 08/16/16 06:00 Troponin I Quantitative < 0.017ng/mL White Blood Count 18.8x10^3/uL Red Blood Count 4.26x10^6/uL Hemoglobin 14.3g/dL Hematocrit 42.7% Mean Corpuscular Volume 100fL Mean Corpuscular Hemoglobin 34pg Mean Corpuscular Hemoglobin Concent 34g/dL Red Cell Distribution Width 13.0% Platelet Count 201x10^3/uL Neutrophils (%) (Auto) 85% Lymphocytes (%) (Auto) 8% Monocytes (%) (Auto) 7% Eosinophils (%) (Auto) 0% Basophils (%) (Auto) 0% Neutrophils # (Auto) 16.0x10^3uL Lymphocytes # (Auto) 1.5x10^3/uL Monocytes # (Auto) 1.3x10^3/uL Eosinophils # (Auto) 0.0x10^3/uL Basophils # (Auto) 0.0x10^3/uL Platelet Estimate Pending Sodium Level 137mmol/L Potassium Level 3.8mmol/L Chloride Level 104mmol/L Carbon Dioxide Level 22mmol/L Anion Gap 11 Blood Urea Nitrogen 15mg/dL Creatinine 0.9mg/dL Estimated GFR (Cockcroft-Gault) 81.8 BUN/Creatinine Ratio 17 Glucose Level 121mg/dL Calcium Level 8.2mg/dL Total Bilirubin 1.3mg/dL Aspartate Amino Transf (AST/SGOT) 26U/L Alanine Aminotransferase (ALT/SGPT) 53U/L Alkaline Phosphatase 49U/L Total Protein 6.4g/dL Albumin 3.2g/dL Albumin/Globulin Ratio 1.0 Imaging: CT A/P 08/14/16 IMPRESSION Possible findings of cholecystitis. Evaluation of the GI tract is somewhat limited by lack of oral contrast. There are tubular fluid-filled structures near the cecum. These probably all represent distal small bowel, although a dilated inflamed appendix could have a similar appearance. RUQ 08/15/16 IMPRESSION: 1. Cholelithiasis without sonographic evidence of acute cholecystitis. 2. Diffuse hepatic steatosis. PIPIDA 08/16/16 Impression: Nonvisualized gallbladder including post morphine administration. Findings are suspicious for acute cholecystitis. PE: GEN: NAD LUNGS: CTAB HEART: RRR ABD: distended, RUQ tenderness, BS quiet NEURO/PSYCH: A & O 3 A/P: RUQ pain w/ abnormal GB imaging -no previous endoscopy, on PPI here -surgery following Alcohol abuse Constipation -- Await surg recs. Will add Miralax. APPLE WILLIAM Aug 16, 2016 10:26
[2016-08-16 11:00] VITALS: BP 137/76
--- NOTE | 2016-08-16 12:17 | PDOC ---
SURGICAL PROGRESS NOTE Subjective some epigastric pain did have pain during hida Vital Signs Vital Signs Date Time Temp Pulse Resp B/P Pulse Ox O2 Delivery O2 Flow Rate FiO2 08/16/16 08:30 16 Room Air 08/16/16 07:00 98.6 88 140/86 98 98.6 I&O Intake and Output 08/16/16 07:00 Intake Total 1782 ml Output Total 1750 ml Balance 32 ml Intake Oral 1220 ml IV Total 562 ml Output Urine Total 1750 ml General: Alert, Oriented X3, Cooperative, No acute distress Abdomen: Soft, Other (tenderness to epigastric and ruq) Labs Laboratory Tests Test 08/14/16 20:45 08/15/16 06:27 08/15/16 14:45 08/16/16 06:00 White Blood Count 10.2x10^3/uL (4.0-11.0) 18.8x10^3/uL (4.0-11.0) Red Blood Count 4.38x10^6/uL (4.30-5.70) 4.26x10^6/uL (4.30-5.70) Hemoglobin 14.9g/dL (13.0-17.5) 14.3g/dL (13.0-17.5) Hematocrit 43.7% (39.0-53.0) 42.7% (39.0-53.0) Mean Corpuscular Volume 100fL (79-100) 100fL (79-100) Mean Corpuscular Hemoglobin 34pg (25-35) 34pg (25-35) Mean Corpuscular Hemoglobin Concent 34g/dL (31-37) 34g/dL (31-37) Red Cell Distribution Width 12.9% (11.5-14.5) 13.0% (11.5-14.5) Platelet Count 218x10^3/uL (140-400) 201x10^3/uL (140-400) Neutrophils (%) (Auto) 74% (31-73) 85% (31-73) Lymphocytes (%) (Auto) 19% (24-48) 8% (24-48) Monocytes (%) (Auto) 6% (0-9) 7% (0-9) Eosinophils (%) (Auto) 1% (0-3) 0% (0-3) Basophils (%) (Auto) 1% (0-3) 0% (0-3) Neutrophils # (Auto) 7.5x10^3uL (1.8-7.7) 16.0x10^3uL (1.8-7.7) Lymphocytes # (Auto) 1.9x10^3/uL (1.0-4.8) 1.5x10^3/uL (1.0-4.8) Monocytes # (Auto) 0.6x10^3/uL (0.0-1.1) 1.3x10^3/uL (0.0-1.1) Eosinophils # (Auto) 0.1x10^3/uL (0.0-0.7) 0.0x10^3/uL (0.0-0.7) Basophils # (Auto) 0.0x10^3/uL (0.0-0.2) 0.0x10^3/uL (0.0-0.2) Sodium Level 140mmol/L (136-145) 137mmol/L (136-145) Potassium Level 3.7mmol/L (3.5-5.1) 3.8mmol/L (3.5-5.1) Chloride Level 103mmol/L (98-107) 104mmol/L (98-107) Carbon Dioxide Level 26mmol/L (21-32) 22mmol/L (21-32) Anion Gap 11 (6-14) 11 (6-14) Blood Urea Nitrogen 21mg/dL (8-26) 15mg/dL (8-26) Creatinine 1.0mg/dL (0.7-1.3) 0.9mg/dL (0.7-1.3) Estimated GFR (Cockcroft-Gault) 72.5 81.8 BUN/Creatinine Ratio 21 (6-20) 17 (6-20) Glucose Level 110mg/dL (70-99) 121mg/dL (70-99) Calcium Level 9.2mg/dL (8.5-10.1) 8.2mg/dL (8.5-10.1) Total Bilirubin 0.4mg/dL (0.2-1.0) 1.3mg/dL (0.2-1.0) Aspartate Amino Transf (AST/SGOT) 27U/L (15-37) 26U/L (15-37) Alanine Aminotransferase (ALT/SGPT) 57U/L (16-63) 53U/L (16-63) Alkaline Phosphatase 48U/L (46-116) 49U/L (46-116) Troponin I Quantitative < 0.017ng/mL (0.000-0.055) < 0.017ng/mL (0.000-0.055) < 0.017ng/mL (0.000-0.055) Total Protein 7.6g/dL (6.4-8.2) 6.4g/dL (6.4-8.2) Albumin 3.8g/dL (3.4-5.0) 3.2g/dL (3.4-5.0) Albumin/Globulin Ratio 1.0 (1.0-1.7) 1.0 (1.0-1.7) Lipase 230U/L (73-393) Laboratory Tests Test 08/15/16 14:45 08/16/16 06:00 Troponin I Quantitative < 0.017ng/mL (0.000-0.055) White Blood Count 18.8x10^3/uL (4.0-11.0) Red Blood Count 4.26x10^6/uL (4.30-5.70) Hemoglobin 14.3g/dL (13.0-17.5) Hematocrit 42.7% (39.0-53.0) Mean Corpuscular Volume 100fL (79-100) Mean Corpuscular Hemoglobin 34pg (25-35) Mean Corpuscular Hemoglobin Concent 34g/dL (31-37) Red Cell Distribution Width 13.0% (11.5-14.5) Platelet Count 201x10^3/uL (140-400) Neutrophils (%) (Auto) 85% (31-73) Lymphocytes (%) (Auto) 8% (24-48) Monocytes (%) (Auto) 7% (0-9) Eosinophils (%) (Auto) 0% (0-3) Basophils (%) (Auto) 0% (0-3) Neutrophils # (Auto) 16.0x10^3uL (1.8-7.7) Lymphocytes # (Auto) 1.5x10^3/uL (1.0-4.8) Monocytes # (Auto) 1.3x10^3/uL (0.0-1.1) Eosinophils # (Auto) 0.0x10^3/uL (0.0-0.7) Basophils # (Auto) 0.0x10^3/uL (0.0-0.2) Sodium Level 137mmol/L (136-145) Potassium Level 3.8mmol/L (3.5-5.1) Chloride Level 104mmol/L (98-107) Carbon Dioxide Level 22mmol/L (21-32) Anion Gap 11 (6-14) Blood Urea Nitrogen 15mg/dL (8-26) Creatinine 0.9mg/dL (0.7-1.3) Estimated GFR (Cockcroft-Gault) 81.8 BUN/Creatinine Ratio 17 (6-20) Glucose Level 121mg/dL (70-99) Calcium Level 8.2mg/dL (8.5-10.1) Total Bilirubin 1.3mg/dL (0.2-1.0) Aspartate Amino Transf (AST/SGOT) 26U/L (15-37) Alanine Aminotransferase (ALT/SGPT) 53U/L (16-63) Alkaline Phosphatase 49U/L (46-116) Total Protein 6.4g/dL (6.4-8.2) Albumin 3.2g/dL (3.4-5.0) Albumin/Globulin Ratio 1.0 (1.0-1.7) Problem List Problems Medical Problems: (1) Abdominal pain Status: Acute (2) Chest pain Status: Acute Assessment/Plan cholecystitis, wbc up to 18, bili 1.3 NPO, start abx will review with Dr Raza regarding surgery for lap joaquin Problems: ARMANDO MCGEE APRN Aug 16, 2016 12:16
--- NOTE | 2016-08-16 12:19 | PDOC ---
PROGRESS NOTES Chief Complaint Chief Complaint - abdominal pain, 2/2 gallstone? - cholelithiasis on CT - GERD - HTN - OBESITY - Alcoholism History of Present Illness History of Present Illness Patient lying down in bed and in no acute distress when evaluated this AM. PIPIDA scan performed this morning with findings suspicious for acute cholecystitis. Pt continues to complain of RUQ pain. Has obvious abdominal distension, which he says has been improving. Complains of constipation, for which GI has started miralax. Vitals Vitals Vital Signs Date Time Temp Pulse Resp B/P Pulse Ox O2 Delivery O2 Flow Rate FiO2 08/16/16 08:30 16 Room Air 08/16/16 07:00 98.6 88 140/86 98 98.6 Physical Exam General: Alert, Cooperative, No acute distress Heart: Regular rate, Normal S1 Lungs: Clear Abdomen: Soft, Other (mild tenderness, mild distension) Extremities: No cyanosis, No edema Skin: No significant lesion Labs LABS Laboratory Tests Test 08/15/16 14:45 08/16/16 06:00 Troponin I Quantitative < 0.017ng/mL (0.000-0.055) White Blood Count 18.8x10^3/uL (4.0-11.0) Red Blood Count 4.26x10^6/uL (4.30-5.70) Hemoglobin 14.3g/dL (13.0-17.5) Hematocrit 42.7% (39.0-53.0) Mean Corpuscular Volume 100fL (79-100) Mean Corpuscular Hemoglobin 34pg (25-35) Mean Corpuscular Hemoglobin Concent 34g/dL (31-37) Red Cell Distribution Width 13.0% (11.5-14.5) Platelet Count 201x10^3/uL (140-400) Neutrophils (%) (Auto) 85% (31-73) Lymphocytes (%) (Auto) 8% (24-48) Monocytes (%) (Auto) 7% (0-9) Eosinophils (%) (Auto) 0% (0-3) Basophils (%) (Auto) 0% (0-3) Neutrophils # (Auto) 16.0x10^3uL (1.8-7.7) Lymphocytes # (Auto) 1.5x10^3/uL (1.0-4.8) Monocytes # (Auto) 1.3x10^3/uL (0.0-1.1) Eosinophils # (Auto) 0.0x10^3/uL (0.0-0.7) Basophils # (Auto) 0.0x10^3/uL (0.0-0.2) Sodium Level 137mmol/L (136-145) Potassium Level 3.8mmol/L (3.5-5.1) Chloride Level 104mmol/L (98-107) Carbon Dioxide Level 22mmol/L (21-32) Anion Gap 11 (6-14) Blood Urea Nitrogen 15mg/dL (8-26) Creatinine 0.9mg/dL (0.7-1.3) Estimated GFR (Cockcroft-Gault) 81.8 BUN/Creatinine Ratio 17 (6-20) Glucose Level 121mg/dL (70-99) Calcium Level 8.2mg/dL (8.5-10.1) Total Bilirubin 1.3mg/dL (0.2-1.0) Aspartate Amino Transf (AST/SGOT) 26U/L (15-37) Alanine Aminotransferase (ALT/SGPT) 53U/L (16-63) Alkaline Phosphatase 49U/L (46-116) Total Protein 6.4g/dL (6.4-8.2) Albumin 3.2g/dL (3.4-5.0) Albumin/Globulin Ratio 1.0 (1.0-1.7) Review of Systems Review of Systems denies fever, chills + constipation + RUQ abdominal pain denies chest pain Assessment and Plan Assessmemt and Plan ASSESSMENT: - abdominal pain, 2/2 gallstone? - cholelithiasis on CT - GERD - HTN - OBESITY - Alcoholism PLAN: - PIPIDA performed this AM; findings suspicious for acute cholecystitis. - Will await surgery recommendation - GI also on the case; appreciate subspecialty input - cont clear liquid diet for now - repeat daily labs - cont pain control Problems: Comment Review of Relevant I have reviewed the following items nika (where applicable) has been applied. Labs Laboratory Tests Test 08/14/16 20:45 08/15/16 06:27 08/15/16 14:45 08/16/16 06:00 White Blood Count 10.2x10^3/uL (4.0-11.0) 18.8x10^3/uL (4.0-11.0) Red Blood Count 4.38x10^6/uL (4.30-5.70) 4.26x10^6/uL (4.30-5.70) Hemoglobin 14.9g/dL (13.0-17.5) 14.3g/dL (13.0-17.5) Hematocrit 43.7% (39.0-53.0) 42.7% (39.0-53.0) Mean Corpuscular Volume 100fL (79-100) 100fL (79-100) Mean Corpuscular Hemoglobin 34pg (25-35) 34pg (25-35) Mean Corpuscular Hemoglobin Concent 34g/dL (31-37) 34g/dL (31-37) Red Cell Distribution Width 12.9% (11.5-14.5) 13.0% (11.5-14.5) Platelet Count 218x10^3/uL (140-400) 201x10^3/uL (140-400) Neutrophils (%) (Auto) 74% (31-73) 85% (31-73) Lymphocytes (%) (Auto) 19% (24-48) 8% (24-48) Monocytes (%) (Auto) 6% (0-9) 7% (0-9) Eosinophils (%) (Auto) 1% (0-3) 0% (0-3) Basophils (%) (Auto) 1% (0-3) 0% (0-3) Neutrophils # (Auto) 7.5x10^3uL (1.8-7.7) 16.0x10^3uL (1.8-7.7) Lymphocytes # (Auto) 1.9x10^3/uL (1.0-4.8) 1.5x10^3/uL (1.0-4.8) Monocytes # (Auto) 0.6x10^3/uL (0.0-1.1) 1.3x10^3/uL (0.0-1.1) Eosinophils # (Auto) 0.1x10^3/uL (0.0-0.7) 0.0x10^3/uL (0.0-0.7) Basophils # (Auto) 0.0x10^3/uL (0.0-0.2) 0.0x10^3/uL (0.0-0.2) Sodium Level 140mmol/L (136-145) 137mmol/L (136-145) Potassium Level 3.7mmol/L (3.5-5.1) 3.8mmol/L (3.5-5.1) Chloride Level 103mmol/L (98-107) 104mmol/L (98-107) Carbon Dioxide Level 26mmol/L (21-32) 22mmol/L (21-32) Anion Gap 11 (6-14) 11 (6-14) Blood Urea Nitrogen 21mg/dL (8-26) 15mg/dL (8-26) Creatinine 1.0mg/dL (0.7-1.3) 0.9mg/dL (0.7-1.3) Estimated GFR (Cockcroft-Gault) 72.5 81.8 BUN/Creatinine Ratio 21 (6-20) 17 (6-20) Glucose Level 110mg/dL (70-99) 121mg/dL (70-99) Calcium Level 9.2mg/dL (8.5-10.1) 8.2mg/dL (8.5-10.1) Total Bilirubin 0.4mg/dL (0.2-1.0) 1.3mg/dL (0.2-1.0) Aspartate Amino Transf (AST/SGOT) 27U/L (15-37) 26U/L (15-37) Alanine Aminotransferase (ALT/SGPT) 57U/L (16-63) 53U/L (16-63) Alkaline Phosphatase 48U/L (46-116) 49U/L (46-116) Troponin I Quantitative < 0.017ng/mL (0.000-0.055) < 0.017ng/mL (0.000-0.055) < 0.017ng/mL (0.000-0.055) Total Protein 7.6g/dL (6.4-8.2) 6.4g/dL (6.4-8.2) Albumin 3.8g/dL (3.4-5.0) 3.2g/dL (3.4-5.0) Albumin/Globulin Ratio 1.0 (1.0-1.7) 1.0 (1.0-1.7) Lipase 230U/L (73-393) Laboratory Tests Test 08/15/16 14:45 08/16/16 06:00 Troponin I Quantitative < 0.017ng/mL (0.000-0.055) White Blood Count 18.8x10^3/uL (4.0-11.0) Red Blood Count 4.26x10^6/uL (4.30-5.70) Hemoglobin 14.3g/dL (13.0-17.5) Hematocrit 42.7% (39.0-53.0) Mean Corpuscular Volume 100fL (79-100) Mean Corpuscular Hemoglobin 34pg (25-35) Mean Corpuscular Hemoglobin Concent 34g/dL (31-37) Red Cell Distribution Width 13.0% (11.5-14.5) Platelet Count 201x10^3/uL (140-400) Neutrophils (%) (Auto) 85% (31-73) Lymphocytes (%) (Auto) 8% (24-48) Monocytes (%) (Auto) 7% (0-9) Eosinophils (%) (Auto) 0% (0-3) Basophils (%) (Auto) 0% (0-3) Neutrophils # (Auto) 16.0x10^3uL (1.8-7.7) Lymphocytes # (Auto) 1.5x10^3/uL (1.0-4.8) Monocytes # (Auto) 1.3x10^3/uL (0.0-1.1) Eosinophils # (Auto) 0.0x10^3/uL (0.0-0.7) Basophils # (Auto) 0.0x10^3/uL (0.0-0.2) Sodium Level 137mmol/L (136-145) Potassium Level 3.8mmol/L (3.5-5.1) Chloride Level 104mmol/L (98-107) Carbon Dioxide Level 22mmol/L (21-32) Anion Gap 11 (6-14) Blood Urea Nitrogen 15mg/dL (8-26) Creatinine 0.9mg/dL (0.7-1.3) Estimated GFR (Cockcroft-Gault) 81.8 BUN/Creatinine Ratio 17 (6-20) Glucose Level 121mg/dL (70-99) Calcium Level 8.2mg/dL (8.5-10.1) Total Bilirubin 1.3mg/dL (0.2-1.0) Aspartate Amino Transf (AST/SGOT) 26U/L (15-37) Alanine Aminotransferase (ALT/SGPT) 53U/L (16-63) Alkaline Phosphatase 49U/L (46-116) Total Protein 6.4g/dL (6.4-8.2) Albumin 3.2g/dL (3.4-5.0) Albumin/Globulin Ratio 1.0 (1.0-1.7) Medications Current Medications Ondansetron HCl (Zofran) 4 mg 1X ONCE IV Last administered on 08/14/16 22:00 ; Start 08/14/16 at 21:30; Stop 08/14/16 at 21:31; Status DC Famotidine (Pepcid) 20 mg 1X ONCE IVP Last administered on 08/14/16 22:01; Start 08/14/16 at 21:30; Stop 08/14/16 at 21:31; Status DC Morphine Sulfate 4 mg 1X ONCE IV Last administered on 08/14/16 22:01; Start 08/14/16 at 21:30; Stop 08/14/16 at 21:31; Status DC Hydralazine HCl (Apresoline) 10 mg 1X ONCE IVP Last administered on 08/14/16 22:00; Start 08/14/16 at 21:30; Stop 08/14/16 at 21:31; Status DC Iohexol (Omnipaque 300 Mg/ml) 75 ml 1X ONCE IV Last administered on 08/14/16 22:25; Start 08/14/16 at 22:15; Stop 08/14/16 at 22:16; Status DC Info (Do NOT chart on this entry -- for MONITORING) 1 each PRN DAILY PRN MC SEE COMMENTS; Start 08/14/16 at 22:15; Stop 08/16/16 at 22:14 Aspirin (Children'S Aspirin) 324 mg 1X ONCE PO Last administered on 3/12/17at 01:06; Start 08/15/16 at 00:15; Stop 08/15/16 at 00:16; Status DC Ondansetron HCl (Zofran) 4 mg PRN Q8HRS PRN IV NAUSEA/VOMITING; Start 08/15/16 at 00:15; Stop 08/15/16 at 13:57; Status DC Morphine Sulfate 4 mg 4 mg PRN Q2HR PRN IV PAIN Last administered on 08/15/16 08:58; Start 08/15/16 at 00:15; Stop 08/16/16 at 00:14; Status DC Sodium Chloride (Iv Sodium Chloride 0.9% 1000ml Bag) 1,000 ml @ 125 mls/hr Q8H IV Last administered on 08/15/16 20:32; Start 08/15/16 at 00:15; Stop at 00:14; Status DC Acetaminophen (Tylenol) 650 mg PRN Q4HRS PRN PO FEVER; Start 08/15/16 at 00:15 ; Stop 08/15/16 at 13:57; Status DC Acetaminophen (Tylenol) 650 mg PRN Q6HRS PRN PO MILD PAIN / TEMP; Start at 11:15 Ondansetron HCl (Zofran) 4 mg PRN Q6HRS PRN IV NAUSEA/VOMITING Last administered on 08/15/16 15:55; Start 08/15/16 at 11:15 Tramadol HCl (Ultram) 50 mg PRN Q6HRS PRN PO PAIN Last administered on 14:36; Start 08/15/16 at 11:15 Morphine Sulfate 2 mg PRN Q2HR PRN IV PAIN; Start 08/15/16 at 11:15; Stop 08/15 at 20:32; Status DC Enoxaparin Sodium (Lovenox 40mg Syringe) 40 mg Q24H SQ Last administered on 14:34; Start 08/15/16 at 16:00 Pantoprazole Sodium (Protonix) 40 mg DAILYAC PO Last administered on 08/16/16 10:26; Start 08/15/16 at 15:00 Morphine Sulfate 2 mg PRN Q2HR PRN IV PAIN; Start 08/15/16 at 14:00 Morphine Sulfate 4 mg 1X ONCE IV Last administered on 08/16/16t 08:30; Start 08/16/16 at 08:30; Stop 08/16/16 at 08:34; Status DC Morphine Sulfate 4 mg STK-MED ONCE .ROUTE ; Start 08/16/16 at 08:34; Stop at 08:35; Status DC Polyethylene Glycol (miraLAX PACKET) 17 gm DAILY PO ; Start 08/16/16 at 12:00 Active Scripts Active Reported [Ranitidine] PO [Flomax] PO [Losartan] PO DAILY [Vitamin] 1 PO DAILY [Aspirin] Mg PO DAILY Vitals/I & O Vital Sign - Last 24 Hours 08/15/16 08/15/16 08/15/16 08/15/16 14:36 15:00 15:38 19:00 Temp 98.0 98.6 98.0 98.6 Pulse 62 69 Resp 14 24 14 20 B/P 168/80 151/87 Pulse Ox 94 94 O2 Delivery Room Air Room Air Room Air Room Air 08/15/16 08/15/16 08/16/16 08/16/16 20:00 23:00 03:00 07:00 Temp 99.2 99.2 98.6 99.2 99.2 98.6 Pulse 75 79 88 Resp 20 20 24 B/P 138/83 132/67 140/86 Pulse Ox 94 94 98 O2 Delivery Room Air Room Air Room Air Room Air 08/16/16 08/16/16 08:00 08:30 Resp 16 O2 Delivery Room Air Room Air Intake and Output 08/15/16 08/15/16 08/16/16 15:00 23:00 07:00 Intake Total 360 ml 1022 ml 400 ml Output Total 600 ml 800 ml 350 ml Balance -240 ml 222 ml 50 ml CASTLE,NIAL K III DO Aug 16, 2016 12:18
[2016-08-16] MEDS: POLYETHYLENE GLYCOL 3350 17 GM PACKET. PO SCH (12:20)
[2016-08-16] MEDS ORDERED: ONDANSETRON PF 4 MG/2 ML VIAL. ONE (13:33)
[2016-08-16] MEDS ORDERED: ROCURONIUM 50 MG/5 ML VIAL. ONE (13:33)
[2016-08-16] MEDS ORDERED: DEXAMETHASONE SOD PHOS 20 MG/5 ML VIAL. ONE (13:33)
[2016-08-16] MEDS ORDERED: PROPOFOL 20 ML IV ONE (13:33)
[2016-08-16] MEDS ORDERED: LIDOCAINE 2% 100 MG/5 ML DISP.SYRIN. ONE (13:33)
[2016-08-16] MEDS ORDERED: FAMOTIDINE 20 MG/2 ML VIAL ONE (13:33)
[2016-08-16] MEDS ORDERED: FENTANYL PF 100 MCG/2 ML VIAL. ONE ×3 (13:33→18:27)
[2016-08-16] MEDS ORDERED: SURGICEL HEMOSTAT 4X8 EACH. ONE ×2 (13:37→18:15)
[2016-08-16] MEDS ORDERED: BUPIVAC MPF-EPI 0.5%-1:200000 30 ML VIAL. ONE (13:38)
[2016-08-16] MEDS ORDERED: IOHEXOL 300 MG/ML 50 ML VIAL. ONE (13:38)
[2016-08-16] MEDS ORDERED: GLUCAGON,HUMAN RECOMBINANT 1 MG/ML VIAL. ONE (13:38)
[2016-08-16] MEDS: PIPERACILLIN/TAZOBACTAM 3.375 GM in IV NORMAL SALINE 50ML 50 ML IV SCH (13:47)
[2016-08-16] MEDS ORDERED: IV RINGERS,LACTATED 1000ML 1,000 ML IV SCH (13:53)
[2016-08-16] MEDS ORDERED: PROCHLORPERAZINE 10 MG/2 ML VIAL. IV PRN (14:00)
[2016-08-16] MEDS ORDERED: HYDROMORPHONE 2 MG/ML VIAL. IV PRN (14:00)
[2016-08-16] MEDS ORDERED: FENTANYL PF 100 MCG/2 ML VIAL. IV PRN (14:00)
[2016-08-16] MEDS ORDERED: ONDANSETRON PF 4 MG/2 ML VIAL. IV PRN ×2 (14:00→19:00)
[2016-08-16] MEDS ORDERED: LIDOCAINE 1% 1 ML SYRINGE. ID PRN (14:00)
[2016-08-16] MEDS ORDERED: MORPHINE SULFATE 2 MG/ML DISP.SYRIN. IV PRN (14:00)
[2016-08-16] MEDS ORDERED: SUCCINYLCHOLINE 200 MG/10 ML VIAL. ONE (14:50)
[2016-08-16] MEDS ORDERED: METRONIDAZOLE 500mg PREMIX 100 ML IV ONE (14:55)
--- NOTE | 2016-08-16 15:17 | CONS ---
DATE OF CONSULTATION: 08/15/2016 REFERRING PHYSICIANS: Dr. Bony Peace, ____, Dr. Greene, Dr. Nadege Sorensen, Dr. Eva Rodriguez. Thank you for the consult. CHIEF COMPLAINT: Epigastric abdominal pain, abdominal distension. DIAGNOSES: Abdominal pain, gallstones. HISTORY OF PRESENT ILLNESS: This is a 76-year-old male who presents with complaints of significant abdominal pain started around the lower abdomen, but has progressed up in the upper abdomen. Also reported extensive abdominal distention and self-induced vomiting. Reports persistent pain in the epigastric area. He reports having previous episodes of pain like this, but never up to this extent. He denies fevers, chills, diarrhea, or constipation. ALLERGIES: He has no known drug allergies. MEDICATIONS: Include ranitidine, blood pressure medicine. PAST MEDICAL ISTORY: Hypertension, reflux. PAST SURGICAL HISTORY: None. SOCIAL HISTORY: No tobacco, reported to be very heavy alcohol abuse. FAMILY HISTORY: Noncontributory. REVEW OF SYSTEMS: All systems reviewed and negative except for HPI. PHYSICAL EXAMINATION: GENERAL: Well-developed, morbidly obese male, mildly uncomfortable. VITAL SIGNS: He is afebrile. Vital signs within normal limits, although he does have some hypertension. He is overweight. Weight is 100 kg, BMI is 28. HEENT: Normocephalic, anicteric sclerae. Oropharynx clear. NECK: Supple. CHEST: Bilateral chest excursion. ABDOMEN: Soft, nondistended. There is mild tenderness to palpation of the epigastric or right upper quadrant area. EXTREMITIES: No clubbing, cyanosis, or edema. LABORATORY DATA: His white blood cell count is 10.2. Chemistries are essentially unremarkable. He has unremarkable liver function test. Chest x-ray demonstrates some interstitial lung disease, it is mild. Abdominopelvic CT, concerned for possible cholecystitis, gallbladder wall thickening, possible surrounding edema. An ultrasound demonstrates cholelithiasis without evidence of acute cholecystitis and diffuse hepatic steatosis. IMPRESSION AND RECOMMENDATIONS: A 76-year-old male with abdominal pain, distension. He is strongly encouraged on need for alcohol abstinence. I am going to check pipida scan to evaluate for gallbladder function. He may benefit from laparoscopic cholecystectomy. I will follow along for ____ intervention. Thank you for allowing me to participation in the care of this pleasant patient. JAYCEE RAMIREZ MD DR: JONATHAN/krystian JOB#: [id number] / [id number] EVA Altamirano MD, NADEGE BEASLEY MD, MD, CHUNMEI MD
[2016-08-16 16:23] LABS: INR 1.5 (0.8-1.1); PROTHROMBIN TIME PATIENT 16.9 SEC (11.7-14.0)
[2016-08-16] MEDS ORDERED: PHENYLEPHRINE in 0.9% NACL PF 1 MG/10 ML DISP.SYRIN. IV ONE (16:44)
[2016-08-16] MEDS ORDERED: NEOSTIGMINE METHYLSULFATE 5 MG/5 ML SYRINGE. ONE (16:59)
[2016-08-16] MEDS ORDERED: GLYCOPYRROLATE 1 MG/5 ML VIAL. ONE (16:59)
[2016-08-16 17:56] LABS: OVALOCYTES OCC; PLT ESTIMATE ADEQUATE (ADEQUATE); SCHISTOCYTES OCC; TOXIC GRANULATION SLIGHT
[2016-08-16] MEDS ORDERED: SUGAMMADEX SODIUM 200 MG/2 ML VIAL. IVP ONE (18:37)
--- NOTE | 2016-08-16 18:55 | RAD ---
PROCEDURE Intraoperative cholangiogram. HISTORY Cholecystectomy. TECHNIQUE Seven spot fluoroscopic images were obtained of the right upper quadrant. Total fluoroscopic time was 39 seconds. FINDINGS There is opacification of the intrahepatic and extrahepatic biliary ducts. No convincing biliary dilatation is seen. No filling defect to suggest choledocholithiasis is identified, although no contrast is seen in the duodenal sweep. IMPRESSION No contrast is seen in the duodenal sweep, although no filling defect to suggest choledocholithiasis is identified. Lack of opacification of duodenal sweep may be due to spasm at the sphincter of Oddi. If there is significant concern for choledocholithiasis, MRCP could be performed. Electronically signed by: Cruz Samuel MD (Aug 16, 2016 18:53:46)
[2016-08-16] MEDS: FENTANYL PF 100 MCG/2 ML VIAL. IV PRN ×4 (18:58→19:41)
--- NOTE | 2016-08-16 18:58 | RAD ---
PROCEDURE Abdomen radiograph. HISTORY Status post open cholecystectomy. COMPARISON Intraoperative cholangiogram August 16, 2016. FINDINGS AP portable supine abdomen radiograph. Surgical drain is seen in the right upper quadrant. There is residual contrast material within the biliary ducts. The no contrast is seen in the duodenal sweep. Bowel gas pattern is without evidence of obstruction. Cholecystectomy clips are seen. No retained instruments are identified. IMPRESSION 1. No retained instruments are identified. 2. No contrast seen in the duodenal sweep. Cause is not immediately identified. It would be difficult to exclude presence of distal obstructing stone. Electronically signed by: Cruz Samuel MD (Aug 16, 2016 18:56:17)
[2016-08-16] MEDS ORDERED: 0.9 % SODIUM CHLORIDE 10 ML DISP.SYRIN. IV PRN (19:00)
[2016-08-16] MEDS ORDERED: HYDROMORPHONE STANDARD PCA 30 ML IV PRN (19:00)
[2016-08-16] MEDS ORDERED: DIPHENHYDRAMINE 50 MG/ML VIAL IV PRN (19:00)
[2016-08-16] MEDS ORDERED: DIPHENHYDRAMINE HCL 25 MG CAPSULE PO PRN (19:00)
--- NOTE | 2016-08-16 19:15 | PDOC ---
BRIEF OPERATIVE NOTE Date: Aug 16, 2016 Pre-Op Diagnosis cholelithiasis, acute cholecystitis Post-Op Diagnosis same Procedure Performed l/s -> "open" cholecystectomy with cholangiograms Surgeon Ry Whittaker CFA Anesthesia Type: General Blood Loss 250cc IV Fluid 750cc crystalloid one unit of FFP Urine Output 150cc Specimens Obtained GB Findings gangrenous cholecystitis, possible choledocholithiasis Complications unable to pass contrast into duodenum on grams Additional Remarks Wk # [id number] NIMA MURO MD Aug 16, 2016 19:15
[2016-08-16 20:30] VITALS: BP 136/83
[2016-08-16] MEDS ORDERED: LORAZEPAM 2 MG/ML VIAL IV PRN (20:45)
--- NOTE | 2016-08-16 22:40 | OP ---
DATE OF SURGERY: 08/16/2016 PREOPERATIVE DIAGNOSIS: Cholelithiasis with acute cholecystitis. POSTOPERATIVE DIAGNOSIS: Cholelithiasis with acute cholecystitis. PROCEDURE: Laparoscopic converted to "open" procedure with cholangiogram. SURGEON: Jameson Muro MD LEAD PRESSER: Remedios CARRILLO____. ANESTHESIA: General. ESTIMATED BLOOD LOSS: 250 mL. IV FLUIDS: 750 of crystalloid and 1 unit of FFP. URINE OUTPUT: 150 mL. INDICATIONS: The patient is a 76-year-old gentleman, who presented with right upper quadrant pain. Ultrasound and CT suggested stones. Pipida scan this morning was consistent with acute cholecystitis. His white blood count went up today and he had some fever. As such, he was brought for cholecystectomy. OPERATIVE FINDINGS: The liver was smooth and sharp. The gallbladder was enveloped with omentum and markedly inflamed with some gangrenous changes. Stones were present. Visual inspection of the remainder of the abdomen failed to reveal obvious abnormalities. DESCRIPTION OF PROCEDURE: The patient was brought to the operating suite, given a general endotracheal anesthetic and the abdomen prepped and draped in the usual sterile fashion. A supraumbilical incision was made and a 5-mm Visiport was used to gain access into the abdominal cavity, taking care to avoid injury to abdominal contents. Pneumoperitoneum was established, camera inserted, and under direct vision, the epigastric, midclavicular, and lateral ports were placed. The gallbladder was aspirated of approximately 100 mL of dark bile to allow grasping the fundus. The gallbladder was retracted superolaterally, and we tried to expose the neck of the gallbladder and portal structures; however, due to the marked inflammatory changes and induration, I did not feel it was best to continue the laparoscopic approach and as such, I abandoned the laparoscope and converted it to an "open" procedure. Table returned to level. The epigastric and midclavicular port sites were connected and extended slightly into the right subcostal incision and the abdomen was entered. An Omni subcutaneous retractor was used for exposure. The gallbladder was grasped at the fundus and was scored with cautery and gently freed from the liver bed. The cystic artery was isolated, ligated, and divided. Careful dissection down to the neck of the gallbladder showed changes in the cystic duct consistent with some necrotic inflammation. We were able to identify the cystic duct and make a cholangiogram. This showed a normal biliary tree; however, there was no flow of contrast into the duodenum. The patient was given a milligram of glucagon and a second set of films were obtained; however again, we were unable to see the contrast in the small bowel. Consideration was given to open common duct exploration; however, given the marked inflammatory process ongoing, I felt it better to not expose the common duct at this time. As such, the catheter was removed and the cystic duct ____ was ligated with a 2-0 tie. A single large Ligaclip was placed proximal to the tie on the cystic duct, taking care to avoid injury or compromise the common duct. The area was then irrigated, evacuated, and checked for adequate hemostasis. When present, a 19-Urdu round Gopi drain was brought through the previous lateral port site skin incision and placed in the subhepatic space for postoperative drainage. Good hemostasis was present, and a correct sponge count was obtained. The incision was closed by running the posterior sheath peritoneum with 0 Vicryl. Anterior sheath was closed in the running fashion with looped 0-PDS tied in the middle. Skin closed loosely with manjit. Sterile dressing was applied. Postop foreign body film was negative for unexplained foreign body. Prior to emergence from anesthesia, a Cuevas catheter was placed. The patient was then awakened from his anesthetic and taken to the recovery room in satisfactory condition. JAMESON MURO MD DR: RONAL/krystian JOB#: [id number] / [id number]
[2016-08-16 23:00] VITALS: BP 150/87
[2016-08-17] MEDS: PIPERACILLIN/TAZOBACTAM 3.375 GM in IV NORMAL SALINE 50ML 50 ML IV SCH ×4 (00:04→17:09)
[2016-08-17 03:00] VITALS: BP 142/80
[2016-08-17 04:47] LABS: BASO % 0 % (0-3); EOS % 0 % (0-3); HEMATOCRIT 35.4 % (39.0-53.0); LYMPH # 1.1 x10^3/uL (1.0-4.8); LYMPH % 6 % (24-48); MEAN CORPUSCULAR HEMOGLOBIN 34 pg (25-35); MEAN CORPUSCULAR HGB CONC 34 g/dL (31-37); MEAN CORPUSCULAR VOLUME 99 fL (79-100); MONO % 6 % (0-9); NEUT % 88 % (31-73); PLATELET COUNT 176 x10^3/uL (140-400); RED BLOOD COUNT 3.57 x10^6/uL (4.30-5.70); RED CELL DISTRIBUTION WIDTH 12.8 % (11.5-14.5); WHITE BLOOD COUNT 18.1 x10^3/uL (4.0-11.0)
[2016-08-17] MEDS: POTASSIUM CL 20MEQ-0.45% NACL 1,000 ML IV SCH ×3 (04:50→14:00)
[2016-08-17 04:51] LABS: INR 1.5 (0.8-1.1); PROTHROMBIN TIME PATIENT 17.1 SEC (11.7-14.0)
[2016-08-17 04:56] LABS: CALCIUM 8.1 mg/dL (8.5-10.1); CREATININE 0.8 mg/dL (0.7-1.3); GFR 93.7; POTASSIUM 4.1 mmol/L (3.5-5.1)
[2016-08-17 05:02] LABS: ALBUMIN 2.6 g/dL (3.4-5.0); DIRECT BILIRUBIN 0.4 mg/dL (0.0-0.2); TOTAL BILIRUBIN 1.2 mg/dL (0.2-1.0); TOTAL PROTEIN 6.4 g/dL (6.4-8.2)
[2016-08-17] MEDS ORDERED: METRONIDAZOLE 500mg PREMIX 100 ML IV PRN (06:00)
[2016-08-17] MEDS: PANTOPRAZOLE 40 MG TABLET. PO SCH (06:07)
[2016-08-17 07:00] VITALS: BP 130/70
[2016-08-17] MEDS: POLYETHYLENE GLYCOL 3350 17 GM PACKET. PO SCH (09:03)
[2016-08-17] MEDS: ENOXAPARIN 40 MG/0.4 ML DISP.SYRIN. SQ SCH (09:03)
[2016-08-17 10:55] VITALS: BP 154/53
--- NOTE | 2016-08-17 11:26 | PDOC ---
PROGRESS NOTES Chief Complaint Chief Complaint - abdominal pain, POD #1 laparoscopic converted to open cholecystectomy - cholelithiasis on CT - GERD - HTN - OBESITY - Alcoholism History of Present Illness History of Present Illness No acute events overnight. Patient was taken to the OR yesterday for a laparoscopic cholecystectomy that was converted to open. Gangrenous cholecystitis was discovered. He is doing well and states his pain is controlled. He is requesting coffee, his diet orders will be deferred to general surgery recommendations. He has not passed flatus or had a bowel movement post-operatively. Vitals Vitals Vital Signs Date Time Temp Pulse Resp B/P Pulse Ox O2 Delivery O2 Flow Rate FiO2 08/17/16 10:55 98.1 77 16 154/53 96 Nasal Cannula 2.0 98.1 Physical Exam General: Alert, Oriented X3, Cooperative, No acute distress Heart: Regular rate, Normal S1, No murmurs Lungs: Clear, Other (no wheezing) Abdomen: Soft, Other (Right subcostal incision covered with CDI dressing, LIT drain in right upper abdomen with serosanguinous drainage, supraumbilical dressing in place CDI, appropriately TTP) Extremities: No cyanosis, No edema Skin: No significant lesion Labs LABS Laboratory Tests Test 08/16/16 15:50 08/17/16 03:45 Prothrombin Time 16.9SEC (11.7-14.0) 17.1SEC (11.7-14.0) Prothromb Time International Ratio 1.5 (0.8-1.1) 1.5 (0.8-1.1) White Blood Count 18.1x10^3/uL (4.0-11.0) Red Blood Count 3.57x10^6/uL (4.30-5.70) Hemoglobin 12.0g/dL (13.0-17.5) Hematocrit 35.4% (39.0-53.0) Mean Corpuscular Volume 99fL (79-100) Mean Corpuscular Hemoglobin 34pg (25-35) Mean Corpuscular Hemoglobin Concent 34g/dL (31-37) Red Cell Distribution Width 12.8% (11.5-14.5) Platelet Count 176x10^3/uL (140-400) Neutrophils (%) (Auto) 88% (31-73) Lymphocytes (%) (Auto) 6% (24-48) Monocytes (%) (Auto) 6% (0-9) Eosinophils (%) (Auto) 0% (0-3) Basophils (%) (Auto) 0% (0-3) Neutrophils # (Auto) 15.9x10^3uL (1.8-7.7) Lymphocytes # (Auto) 1.1x10^3/uL (1.0-4.8) Monocytes # (Auto) 1.1x10^3/uL (0.0-1.1) Eosinophils # (Auto) 0.0x10^3/uL (0.0-0.7) Basophils # (Auto) 0.0x10^3/uL (0.0-0.2) Sodium Level 137mmol/L (136-145) Potassium Level 4.1mmol/L (3.5-5.1) Chloride Level 102mmol/L (98-107) Carbon Dioxide Level 23mmol/L (21-32) Anion Gap 12 (6-14) Blood Urea Nitrogen 16mg/dL (8-26) Creatinine 0.8mg/dL (0.7-1.3) Estimated GFR (Cockcroft-Gault) 93.7 Glucose Level 134mg/dL (70-99) Calcium Level 8.1mg/dL (8.5-10.1) Total Bilirubin 1.2mg/dL (0.2-1.0) Direct Bilirubin 0.4mg/dL (0.0-0.2) Aspartate Amino Transf (AST/SGOT) 85U/L (15-37) Alanine Aminotransferase (ALT/SGPT) 98U/L (16-63) Alkaline Phosphatase 63U/L (46-116) Total Protein 6.4g/dL (6.4-8.2) Albumin 2.6g/dL (3.4-5.0) Review of Systems Review of Systems Denies chest pain and shortness of breath. Denies fever and chills. Some abdominal pain that is controlled. Assessment and Plan Assessmemt and Plan Problems Medical Problems: (1) Abdominal pain Status: Acute (2) Chest pain Status: Acute (3) Cholelithiasis with acute cholecystitis with biliary obstruction Status: Acute ASSESSMENT: - abdominal pain, POD #1 laparoscopic converted to open cholecystectomy - cholelithiasis on CT - GERD - HTN - OBESITY - Alcoholism PLAN: Surgery and GI following, their recommendations are appreciated Advancement of diet will be deferred to general surgery Continue pain control Continue DVT ppx with lovenox Continue to monitor daily labs PT/OT eval and treat Problems: Comment Review of Relevant I have reviewed the following items nika (where applicable) has been applied. Labs Laboratory Tests Test 08/15/16 14:45 08/16/16 06:00 08/16/16 15:50 08/17/16 03:45 Troponin I Quantitative < 0.017ng/mL (0.000-0.055) White Blood Count 18.8x10^3/uL (4.0-11.0) 18.1x10^3/uL (4.0-11.0) Red Blood Count 4.26x10^6/uL (4.30-5.70) 3.57x10^6/uL (4.30-5.70) Hemoglobin 14.3g/dL (13.0-17.5) 12.0g/dL (13.0-17.5) Hematocrit 42.7% (39.0-53.0) 35.4% (39.0-53.0) Mean Corpuscular Volume 100fL (79-100) 99fL (79-100) Mean Corpuscular Hemoglobin 34pg (25-35) 34pg (25-35) Mean Corpuscular Hemoglobin Concent 34g/dL (31-37) 34g/dL (31-37) Red Cell Distribution Width 13.0% (11.5-14.5) 12.8% (11.5-14.5) Platelet Count 201x10^3/uL (140-400) 176x10^3/uL (140-400) Neutrophils (%) (Auto) 85% (31-73) 88% (31-73) Lymphocytes (%) (Auto) 8% (24-48) 6% (24-48) Monocytes (%) (Auto) 7% (0-9) 6% (0-9) Eosinophils (%) (Auto) 0% (0-3) 0% (0-3) Basophils (%) (Auto) 0% (0-3) 0% (0-3) Neutrophils # (Auto) 16.0x10^3uL (1.8-7.7) 15.9x10^3uL (1.8-7.7) Lymphocytes # (Auto) 1.5x10^3/uL (1.0-4.8) 1.1x10^3/uL (1.0-4.8) Monocytes # (Auto) 1.3x10^3/uL (0.0-1.1) 1.1x10^3/uL (0.0-1.1) Eosinophils # (Auto) 0.0x10^3/uL (0.0-0.7) 0.0x10^3/uL (0.0-0.7) Basophils # (Auto) 0.0x10^3/uL (0.0-0.2) 0.0x10^3/uL (0.0-0.2) Segmented Neutrophils % 87% (35-66) Lymphocytes % 4% (24-48) Monocytes % 9% (0-10) Toxic Granulation Slight Platelet Estimate Adequate (ADEQUATE) Large Platelets Occ Ovalocytes Occ Schistocytes Occ Sodium Level 137mmol/L (136-145) 137mmol/L (136-145) Potassium Level 3.8mmol/L (3.5-5.1) 4.1mmol/L (3.5-5.1) Chloride Level 104mmol/L (98-107) 102mmol/L (98-107) Carbon Dioxide Level 22mmol/L (21-32) 23mmol/L (21-32) Anion Gap 11 (6-14) 12 (6-14) Blood Urea Nitrogen 15mg/dL (8-26) 16mg/dL (8-26) Creatinine 0.9mg/dL (0.7-1.3) 0.8mg/dL (0.7-1.3) Estimated GFR (Cockcroft-Gault) 81.8 93.7 BUN/Creatinine Ratio 17 (6-20) Glucose Level 121mg/dL (70-99) 134mg/dL (70-99) Calcium Level 8.2mg/dL (8.5-10.1) 8.1mg/dL (8.5-10.1) Total Bilirubin 1.3mg/dL (0.2-1.0) 1.2mg/dL (0.2-1.0) Aspartate Amino Transf (AST/SGOT) 26U/L (15-37) 85U/L (15-37) Alanine Aminotransferase (ALT/SGPT) 53U/L (16-63) 98U/L (16-63) Alkaline Phosphatase 49U/L (46-116) 63U/L (46-116) Total Protein 6.4g/dL (6.4-8.2) 6.4g/dL (6.4-8.2) Albumin 3.2g/dL (3.4-5.0) 2.6g/dL (3.4-5.0) Albumin/Globulin Ratio 1.0 (1.0-1.7) Prothrombin Time 16.9SEC (11.7-14.0) 17.1SEC (11.7-14.0) Prothromb Time International Ratio 1.5 (0.8-1.1) 1.5 (0.8-1.1) Direct Bilirubin 0.4mg/dL (0.0-0.2) Laboratory Tests Test 08/16/16 15:50 08/17/16 03:45 Prothrombin Time 16.9SEC (11.7-14.0) 17.1SEC (11.7-14.0) Prothromb Time International Ratio 1.5 (0.8-1.1) 1.5 (0.8-1.1) White Blood Count 18.1x10^3/uL (4.0-11.0) Red Blood Count 3.57x10^6/uL (4.30-5.70) Hemoglobin 12.0g/dL (13.0-17.5) Hematocrit 35.4% (39.0-53.0) Mean Corpuscular Volume 99fL (79-100) Mean Corpuscular Hemoglobin 34pg (25-35) Mean Corpuscular Hemoglobin Concent 34g/dL (31-37) Red Cell Distribution Width 12.8% (11.5-14.5) Platelet Count 176x10^3/uL (140-400) Neutrophils (%) (Auto) 88% (31-73) Lymphocytes (%) (Auto) 6% (24-48) Monocytes (%) (Auto) 6% (0-9) Eosinophils (%) (Auto) 0% (0-3) Basophils (%) (Auto) 0% (0-3) Neutrophils # (Auto) 15.9x10^3uL (1.8-7.7) Lymphocytes # (Auto) 1.1x10^3/uL (1.0-4.8) Monocytes # (Auto) 1.1x10^3/uL (0.0-1.1) Eosinophils # (Auto) 0.0x10^3/uL (0.0-0.7) Basophils # (Auto) 0.0x10^3/uL (0.0-0.2) Sodium Level 137mmol/L (136-145) Potassium Level 4.1mmol/L (3.5-5.1) Chloride Level 102mmol/L (98-107) Carbon Dioxide Level 23mmol/L (21-32) Anion Gap 12 (6-14) Blood Urea Nitrogen 16mg/dL (8-26) Creatinine 0.8mg/dL (0.7-1.3) Estimated GFR (Cockcroft-Gault) 93.7 Glucose Level 134mg/dL (70-99) Calcium Level 8.1mg/dL (8.5-10.1) Total Bilirubin 1.2mg/dL (0.2-1.0) Direct Bilirubin 0.4mg/dL (0.0-0.2) Aspartate Amino Transf (AST/SGOT) 85U/L (15-37) Alanine Aminotransferase (ALT/SGPT) 98U/L (16-63) Alkaline Phosphatase 63U/L (46-116) Total Protein 6.4g/dL (6.4-8.2) Albumin 2.6g/dL (3.4-5.0) Medications Current Medications Ondansetron HCl (Zofran) 4 mg 1X ONCE IV Last administered on 08/14/16 22:00 ; Start 08/14/16 at 21:30; Stop 08/14/16 at 21:31; Status DC Famotidine (Pepcid) 20 mg 1X ONCE IVP Last administered on 08/14/16 22:01; Start 08/14/16 at 21:30; Stop 08/14/16 at 21:31; Status DC Morphine Sulfate 4 mg 1X ONCE IV Last administered on 08/14/16 22:01; Start 08/14/16 at 21:30; Stop 08/14/16 at 21:31; Status DC Hydralazine HCl (Apresoline) 10 mg 1X ONCE IVP Last administered on 08/14/16 22:00; Start 08/14/16 at 21:30; Stop 08/14/16 at 21:31; Status DC Iohexol (Omnipaque 300 Mg/ml) 75 ml 1X ONCE IV Last administered on 08/14/16 22:25; Start 08/14/16 at 22:15; Stop 08/14/16 at 22:16; Status DC Info (Do NOT chart on this entry -- for MONITORING) 1 each PRN DAILY PRN MC SEE COMMENTS; Start 08/14/16 at 22:15; Stop 08/16/16 at 22:14; Status DC Aspirin (Children'S Aspirin) 324 mg 1X ONCE PO Last administered on 08/15/16 01:06; Start 08/15/16 at 00:15; Stop 08/15/16 at 00:16; Status DC Ondansetron HCl (Zofran) 4 mg PRN Q8HRS PRN IV NAUSEA/VOMITING; Start 08/15/16 at 00:15; Stop 08/15/16 at 13:57; Status DC Morphine Sulfate 4 mg 4 mg PRN Q2HR PRN IV PAIN Last administered on 08/15/16 08:58; Start 08/15/16 at 00:15; Stop 08/16/16 at 00:14; Status DC Sodium Chloride (Iv Sodium Chloride 0.9% 1000ml Bag) 1,000 ml @ 125 mls/hr Q8H IV Last administered on 08/15/16 20:32; Start 08/15/16 at 00:15; Stop at 00:14; Status DC Acetaminophen (Tylenol) 650 mg PRN Q4HRS PRN PO FEVER; Start 08/15/16 at 00:15 ; Stop 08/15/16 at 13:57; Status DC Acetaminophen (Tylenol) 650 mg PRN Q6HRS PRN PO MILD PAIN / TEMP; Start at 11:15 Ondansetron HCl (Zofran) 4 mg PRN Q6HRS PRN IV NAUSEA/VOMITING Last administered on 08/15/16 15:55; Start 08/15/16 at 11:15; Stop 08/16/16 at 19:01 ; Status DC Tramadol HCl (Ultram) 50 mg PRN Q6HRS PRN PO MODERATE - SEVERE PAIN Last administered on 08/15/16 14:36; Start 08/15/16 at 11:15 Morphine Sulfate 2 mg PRN Q2HR PRN IV PAIN; Start 08/15/16 at 11:15; Stop 08/15 at 20:32; Status DC Enoxaparin Sodium (Lovenox 40mg Syringe) 40 mg Q24H SQ Last administered on 14:34; Start 08/15/16 at 16:00; Stop 08/16/16 at 19:00; Status DC Pantoprazole Sodium (Protonix) 40 mg DAILYAC PO Last administered on 08/17/16 06:07; Start 08/15/16 at 15:00 Morphine Sulfate 2 mg PRN Q2HR PRN IV PAIN; Start 08/15/16 at 14:00; Stop 08/16 at 19:00; Status DC Morphine Sulfate 4 mg 1X ONCE IV Last administered on 08/16/16 08:30; Start 08/16/16 at 08:30; Stop 08/16/16 at 08:34; Status DC Morphine Sulfate 4 mg STK-MED ONCE .ROUTE ; Start 08/16/16 at 08:34; Stop at 08:35; Status DC Polyethylene Glycol 17 gm 17 gm DAILY PO Last administered on 08/17/16 09:03; Start 08/16/16 at 12:00 Piperacillin Sod/ Tazobactam Sod/ Sodium Chloride (Zosyn/Iv Sodium Chloride 0.9 % 50ml) 50 ml @ 100 mls/hr Q6HRS IV Last administered on 08/17/16 06:07; Start 08/16/16 at 12:15 Lidocaine HCl 100 mg STK-MED ONCE .ROUTE ; Start 08/16/16 at 13:33; Stop at 13:34; Status DC Dexamethasone Sodium Phosphate 20 mg 20 mg STK-MED ONCE .ROUTE ; Start 08/16/16 at 13:33; Stop 08/16/16 at 13:34; Status DC Propofol (Diprivan) 20 ml @ As Directed STK-MED ONCE IV ; Start 08/16/16 at 13: 33; Stop 08/16/16 at 13:34; Status DC Ondansetron HCl (Zofran) 4 mg STK-MED ONCE .ROUTE ; Start 08/16/16 at 13:33; Stop 08/16/16 at 13:34; Status DC Famotidine (Pepcid) 20 mg STK-MED ONCE .ROUTE ; Start 08/16/16 at 13:33; Stop at 13:34; Status DC Fentanyl Citrate (Fentanyl 2ml Vial) 100 mcg STK-MED ONCE .ROUTE ; Start at 13:33; Stop 08/16/16 at 13:34; Status DC Rocuronium [place] (Zemuron) 50 mg STK-MED ONCE .ROUTE ; Start 08/16/16 at 13:33 ; Stop 08/16/16 at 13:34; Status DC Cellulose 1 each STK-MED ONCE .ROUTE ; Start 08/16/16 at 13:37; Stop 08/16/16 at 13:38; Status DC Bupivacaine HCl/ Epinephrine Bitart (Sensorcain-Mpf Epi 0.5%-[id number]) 30 ml STK -MED ONCE .ROUTE Last administered on 08/16/16 16:51; Start 08/16/16 at 13:38 ; Stop 08/16/16 at 13:39; Status DC Iohexol (Omnipaque 300 Mg/ml) 50 ml STK-MED ONCE .ROUTE Last administered on 16:51; Start 08/16/16 at 13:38; Stop 08/16/16 at 13:39; Status DC Glucagon (Glucagen) 1 mg STK-MED ONCE .ROUTE Last administered on 08/16/16 18: 00; Start 08/16/16 at 13:38; Stop 08/16/16 at 13:39; Status DC Ondansetron HCl (Zofran) 4 mg PRN Q6HRS PRN IV Nausea; Start 08/16/16 at 14:00 ; Stop 08/17/16 at 13:59 Fentanyl Citrate (Fentanyl 2ml Vial) 25 mcg PRN Q5MIN PRN IV MILD PAIN; Start 08/16/16 at 14:00; Stop 08/17/16 at 13:59 Fentanyl Citrate (Fentanyl 2ml Vial) 50 mcg PRN Q5MIN PRN IV MODERATE PAIN Last administered on 08/16/16 19:41; Start 08/16/16 at 14:00; Stop 08/17/16 at 13:59 Morphine Sulfate 1 mg 1 mg PRN Q10MIN PRN IV SEVERE PAIN; Start 08/16/16 at 14: 00; Stop 08/17/16 at 13:59 Lactated Ringer's (Iv Lactated Ringers) 1,000 ml @ 30 mls/hr Q24H IV Last administered on 08/16/16 14:06; Start 08/16/16 at 13:53; Stop 08/17/16 at 01:52 ; Status DC Lidocaine HCl 2 ml 1X PRN PRN ID IV START; Start 08/16/16 at 14:00; Stop at 13:59 Hydromorphone HCl (Dilaudid) 0.5 mg PRN Q10MIN PRN IV SEV PAIN,Second choice; Start 08/16/16 at 14:00; Stop 08/17/16 at 13:59 Prochlorperazine Edisylate 5 mg 5 mg PACU PRN PRN IV NAUSEA Last administered on 08/16/16 18:57; Start 08/16/16 at 14:00; Stop 08/17/16 at 13:59 Metronidazole (FLAGYL 500Mmg PREMIX) 100 ml @ 100 mls/hr 1X PREOP PRN IV prophylaxis\ Last administered on 08/16/16 16:47; Start 08/17/16 at 06:00; Stop 08/17/16 at 18:00 Succinylcholine Chloride 200 mg 200 mg STK-MED ONCE .ROUTE ; Start 08/16/16 at 14:50; Stop 08/16/16 at 14:51; Status DC Metronidazole (FLAGYL 500Mmg PREMIX) 100 ml @ As Directed STK-MED ONCE IV ; Start 08/16/16 at 14:55; Stop 08/16/16 at 14:56; Status DC Phenylephrine HCl 1 mg STK-MED ONCE IV ; Start 08/16/16 at 16:44; Stop 08/16/16 at 16:45; Status DC Fentanyl Citrate (Fentanyl 2ml Vial) 100 mcg STK-MED ONCE .ROUTE ; Start at 16:58; Stop 08/16/16 at 16:59; Status DC Neostigmine Methylsulfate 5 mg STK-MED ONCE .ROUTE ; Start 08/16/16 at 16:59; Stop 08/16/16 at 17:00; Status DC Glycopyrrolate (Robinul) 1 mg STK-MED ONCE .ROUTE ; Start 08/16/16 at 16:59; Stop 08/16/16 at 17:00; Status DC Cellulose 1 each STK-MED ONCE .ROUTE ; Start 08/16/16 at 18:15; Stop 08/16/16 at 18:16; Status DC Fentanyl Citrate (Fentanyl 2ml Vial) 100 mcg STK-MED ONCE .ROUTE ; Start at 18:27; Stop 08/16/16 at 18:28; Status DC Sugammadex Sodium ([place]) 200 mg STK-MED ONCE IVP ; Start 08/16/16 at 18:37; Stop 08/16/16 at 18:38; Status DC Diphenhydramine HCl (Benadryl) 25 mg PRN Q6HRS PRN PO ITCHING; Start 08/16/16 at 19:00 Diphenhydramine HCl (Benadryl) 25 mg PRN Q6HRS PRN IV ITCHING; Start 08/16/16 at 19:00 Enoxaparin Sodium (Lovenox 40mg Syringe) 40 mg Q24H SQ Last administered on 09:03; Start 08/17/16 at 09:00 Sodium Chloride 3 ml 3 ml QSHIFT PRN IV AFTER MEDS AND BLOOD DRAWS; Start 08/16 at 19:00 Potassium Chloride/Sodium Chloride 1,000 ml @ 100 mls/hr Q10H IV ; Start at 18:50 Hydromorphone HCl (Dilaudid Standard [employer]) 30 ml @ 0 mls/hr CONT PRN PRN IV PROTOCOL Last administered on 08/16/16 19:28; Start 08/16/16 at 19:00 Ondansetron HCl (Zofran) 4 mg PRN Q6HRS PRN IV NAUESA, 1ST CHOICE; Start at 19:00 Lorazepam (Ativan) 1 mg PRN Q6HRS PRN IV ANXIETY / AGITATION; Start 08/16/16 at 20:45 Active Scripts Active Reported [Ranitidine] PO [Flomax] PO [Losartan] PO DAILY [Vitamin] 1 PO DAILY [Aspirin] Mg PO DAILY Vitals/I & O Vital Sign - Last 24 Hours 08/16/16 08/16/16 08/16/16 08/16/16 14:50 18:50 18:58 19:05 Temp 100.3 100.5 100.3 100.5 Pulse 70 78 72 Resp 20 16 18 B/P 127/72 155/74 144/78 Pulse Ox 94 99 98 99 O2 Delivery Room Air Simple Mask Simple Mask Simple Mask O2 Flow Rate 10 10.0 10 08/16/16 08/16/16 08/16/16 08/16/16 19:05 19:10 19:20 19:27 Pulse 82 Resp 20 B/P 164/81 Pulse Ox 98 96 96 O2 Delivery Mask Simple Mask Nasal Cannula Nasal Cannula O2 Flow Rate 10 10.0 2 2.0 08/16/16 08/16/16 08/16/16 08/16/16 19:28 19:35 19:41 19:50 Temp 99.0 99.0 Pulse 75 72 Resp 18 18 B/P 143/87 149/80 Pulse Ox 95 95 95 96 O2 Delivery Nasal Cannula Nasal Cannula Nasal Cannula Nasal Cannula O2 Flow Rate 2.0 2 2.0 2 08/16/16 08/16/16 08/16/16 08/16/16 19:52 20:00 20:05 20:30 Temp 99.5 99.5 Pulse 69 69 Resp 20 18 B/P 152/83 136/83 Pulse Ox 95 97 O2 Delivery Nasal Cannula Nasal Cannula Nasal Cannula Room Air O2 Flow Rate 2 2.0 2 08/16/16 08/17/16 08/17/16 08/17/16 23:00 03:00 07:00 08:00 Temp 98.6 98.9 97.9 98.6 98.9 97.9 Pulse 67 78 65 Resp 18 18 16 B/P 150/87 142/80 130/70 Pulse Ox 98 98 95 O2 Delivery Nasal Cannula Nasal Cannula BiPAP/CPAP Room Air O2 Flow Rate 2.0 2.0 2.0 08/17/16 10:55 Temp 98.1 98.1 Pulse 77 Resp 16 B/P 154/53 Pulse Ox 96 O2 Delivery Nasal Cannula O2 Flow Rate 2.0 Intake and Output 08/16/16 08/16/16 08/17/16 15:00 23:00 07:00 Intake Total 240 ml 2100 ml 870 ml Output Total 300 ml 250 ml 850 ml Balance -60 ml 1850 ml 20 ml CATY VO III, DO Aug 17, 2016 11:25
--- NOTE | 2016-08-17 11:34 | PDOC ---
Subjective: Subjective: Returning from walking w/ PT - some SOA which he says is "standard." Not too much abd discomfort. On clears. Denies flatus or BM. Objective: Objective: Tmax 99.5. WBC 18.1 (from 18.8). Bili 1.2 (from 1.3), AST 85, ALT 98, Alk Phos 63. Vital Signs: Vital Signs Date Time Temp Pulse Resp B/P Pulse Ox O2 Delivery O2 Flow Rate FiO2 08/17/16 10:55 98.1 77 16 154/53 96 Nasal Cannula 2.0 98.1 Labs: Laboratory Tests Test 08/16/16 15:50 08/17/16 03:45 Prothrombin Time 16.9SEC 17.1SEC Prothromb Time International Ratio 1.5 1.5 White Blood Count 18.1x10^3/uL Red Blood Count 3.57x10^6/uL Hemoglobin 12.0g/dL Hematocrit 35.4% Mean Corpuscular Volume 99fL Mean Corpuscular Hemoglobin 34pg Mean Corpuscular Hemoglobin Concent 34g/dL Red Cell Distribution Width 12.8% Platelet Count 176x10^3/uL Neutrophils (%) (Auto) 88% Lymphocytes (%) (Auto) 6% Monocytes (%) (Auto) 6% Eosinophils (%) (Auto) 0% Basophils (%) (Auto) 0% Neutrophils # (Auto) 15.9x10^3uL Lymphocytes # (Auto) 1.1x10^3/uL Monocytes # (Auto) 1.1x10^3/uL Eosinophils # (Auto) 0.0x10^3/uL Basophils # (Auto) 0.0x10^3/uL Sodium Level 137mmol/L Potassium Level 4.1mmol/L Chloride Level 102mmol/L Carbon Dioxide Level 23mmol/L Anion Gap 12 Blood Urea Nitrogen 16mg/dL Creatinine 0.8mg/dL Estimated GFR (Cockcroft-Gault) 93.7 Glucose Level 134mg/dL Calcium Level 8.1mg/dL Total Bilirubin 1.2mg/dL Direct Bilirubin 0.4mg/dL Aspartate Amino Transf (AST/SGOT) 85U/L Alanine Aminotransferase (ALT/SGPT) 98U/L Alkaline Phosphatase 63U/L Total Protein 6.4g/dL Albumin 2.6g/dL Imaging: IOC 08/16/16 IMPRESSION No contrast is seen in the duodenal sweep, although no filling defect to suggest choledocholithiasis is identified. Lack of opacification of duodenal sweep may be due to spasm at the sphincter of Oddi. If there is significant concern for choledocholithiasis, MRCP could be performed. PE: GEN: NAD LUNGS: decreased bilaterally HEART: RRR ABD: BS quiet, some tenderness RUQ, dressings, drain serosang w/ some thicker material NEURO/PSYCH: A & O 3 A/P: S/p open cholecystectomy 08/16/16 -gangrenous cholecystitis, possible choledocholithiasis Leukocytosis - stable -on atbx Elevated LFTs -as above, bili stable -- Continue same per GI. APPLE WILLIAM Aug 17, 2016 11:33
[2016-08-17] MEDS: OXYCODONE/APAP 5/325 TABLET. PO PRN (12:33)
--- NOTE | 2016-08-17 13:23 | PDOC ---
SURGICAL PROGRESS NOTE Subjective some abdominal bloating incisional pain no flatus Vital Signs Vital Signs Date Time Temp Pulse Resp B/P Pulse Ox O2 Delivery O2 Flow Rate FiO2 08/17/16 10:55 98.1 77 16 154/53 96 Nasal Cannula 2.0 98.1 I&O Intake and Output 08/17/16 07:00 Intake Total 3210 ml Output Total 1400 ml Balance 1810 ml Intake Oral 1060 ml IV Total 2150 ml Output Urine Total 1200 ml Drainage Total 200 ml General: Alert, Oriented X3, Cooperative, No acute distress Abdomen: Soft, Other (distented, incision dressing dry, LIT serosang ) Labs Laboratory Tests Test 08/15/16 14:45 08/16/16 06:00 08/16/16 15:50 08/17/16 03:45 Troponin I Quantitative < 0.017ng/mL (0.000-0.055) White Blood Count 18.8x10^3/uL (4.0-11.0) 18.1x10^3/uL (4.0-11.0) Red Blood Count 4.26x10^6/uL (4.30-5.70) 3.57x10^6/uL (4.30-5.70) Hemoglobin 14.3g/dL (13.0-17.5) 12.0g/dL (13.0-17.5) Hematocrit 42.7% (39.0-53.0) 35.4% (39.0-53.0) Mean Corpuscular Volume 100fL (79-100) 99fL (79-100) Mean Corpuscular Hemoglobin 34pg (25-35) 34pg (25-35) Mean Corpuscular Hemoglobin Concent 34g/dL (31-37) 34g/dL (31-37) Red Cell Distribution Width 13.0% (11.5-14.5) 12.8% (11.5-14.5) Platelet Count 201x10^3/uL (140-400) 176x10^3/uL (140-400) Neutrophils (%) (Auto) 85% (31-73) 88% (31-73) Lymphocytes (%) (Auto) 8% (24-48) 6% (24-48) Monocytes (%) (Auto) 7% (0-9) 6% (0-9) Eosinophils (%) (Auto) 0% (0-3) 0% (0-3) Basophils (%) (Auto) 0% (0-3) 0% (0-3) Neutrophils # (Auto) 16.0x10^3uL (1.8-7.7) 15.9x10^3uL (1.8-7.7) Lymphocytes # (Auto) 1.5x10^3/uL (1.0-4.8) 1.1x10^3/uL (1.0-4.8) Monocytes # (Auto) 1.3x10^3/uL (0.0-1.1) 1.1x10^3/uL (0.0-1.1) Eosinophils # (Auto) 0.0x10^3/uL (0.0-0.7) 0.0x10^3/uL (0.0-0.7) Basophils # (Auto) 0.0x10^3/uL (0.0-0.2) 0.0x10^3/uL (0.0-0.2) Segmented Neutrophils % 87% (35-66) Lymphocytes % 4% (24-48) Monocytes % 9% (0-10) Toxic Granulation Slight Platelet Estimate Adequate (ADEQUATE) Large Platelets Occ Ovalocytes Occ Schistocytes Occ Sodium Level 137mmol/L (136-145) 137mmol/L (136-145) Potassium Level 3.8mmol/L (3.5-5.1) 4.1mmol/L (3.5-5.1) Chloride Level 104mmol/L (98-107) 102mmol/L (98-107) Carbon Dioxide Level 22mmol/L (21-32) 23mmol/L (21-32) Anion Gap 11 (6-14) 12 (6-14) Blood Urea Nitrogen 15mg/dL (8-26) 16mg/dL (8-26) Creatinine 0.9mg/dL (0.7-1.3) 0.8mg/dL (0.7-1.3) Estimated GFR (Cockcroft-Gault) 81.8 93.7 BUN/Creatinine Ratio 17 (6-20) Glucose Level 121mg/dL (70-99) 134mg/dL (70-99) Calcium Level 8.2mg/dL (8.5-10.1) 8.1mg/dL (8.5-10.1) Total Bilirubin 1.3mg/dL (0.2-1.0) 1.2mg/dL (0.2-1.0) Aspartate Amino Transf (AST/SGOT) 26U/L (15-37) 85U/L (15-37) Alanine Aminotransferase (ALT/SGPT) 53U/L (16-63) 98U/L (16-63) Alkaline Phosphatase 49U/L (46-116) 63U/L (46-116) Total Protein 6.4g/dL (6.4-8.2) 6.4g/dL (6.4-8.2) Albumin 3.2g/dL (3.4-5.0) 2.6g/dL (3.4-5.0) Albumin/Globulin Ratio 1.0 (1.0-1.7) Prothrombin Time 16.9SEC (11.7-14.0) 17.1SEC (11.7-14.0) Prothromb Time International Ratio 1.5 (0.8-1.1) 1.5 (0.8-1.1) Direct Bilirubin 0.4mg/dL (0.0-0.2) Laboratory Tests Test 08/16/16 15:50 08/17/16 03:45 Prothrombin Time 16.9SEC (11.7-14.0) 17.1SEC (11.7-14.0) Prothromb Time International Ratio 1.5 (0.8-1.1) 1.5 (0.8-1.1) White Blood Count 18.1x10^3/uL (4.0-11.0) Red Blood Count 3.57x10^6/uL (4.30-5.70) Hemoglobin 12.0g/dL (13.0-17.5) Hematocrit 35.4% (39.0-53.0) Mean Corpuscular Volume 99fL (79-100) Mean Corpuscular Hemoglobin 34pg (25-35) Mean Corpuscular Hemoglobin Concent 34g/dL (31-37) Red Cell Distribution Width 12.8% (11.5-14.5) Platelet Count 176x10^3/uL (140-400) Neutrophils (%) (Auto) 88% (31-73) Lymphocytes (%) (Auto) 6% (24-48) Monocytes (%) (Auto) 6% (0-9) Eosinophils (%) (Auto) 0% (0-3) Basophils (%) (Auto) 0% (0-3) Neutrophils # (Auto) 15.9x10^3uL (1.8-7.7) Lymphocytes # (Auto) 1.1x10^3/uL (1.0-4.8) Monocytes # (Auto) 1.1x10^3/uL (0.0-1.1) Eosinophils # (Auto) 0.0x10^3/uL (0.0-0.7) Basophils # (Auto) 0.0x10^3/uL (0.0-0.2) Sodium Level 137mmol/L (136-145) Potassium Level 4.1mmol/L (3.5-5.1) Chloride Level 102mmol/L (98-107) Carbon Dioxide Level 23mmol/L (21-32) Anion Gap 12 (6-14) Blood Urea Nitrogen 16mg/dL (8-26) Creatinine 0.8mg/dL (0.7-1.3) Estimated GFR (Cockcroft-Gault) 93.7 Glucose Level 134mg/dL (70-99) Calcium Level 8.1mg/dL (8.5-10.1) Total Bilirubin 1.2mg/dL (0.2-1.0) Direct Bilirubin 0.4mg/dL (0.0-0.2) Aspartate Amino Transf (AST/SGOT) 85U/L (15-37) Alanine Aminotransferase (ALT/SGPT) 98U/L (16-63) Alkaline Phosphatase 63U/L (46-116) Total Protein 6.4g/dL (6.4-8.2) Albumin 2.6g/dL (3.4-5.0) Problem List Problems Medical Problems: (1) Abdominal pain Status: Acute (2) Chest pain Status: Acute (3) Cholelithiasis with acute cholecystitis with biliary obstruction Status: Acute Assessment/Plan s/p open joaquin possible choledocholithiasis, LFTS ok, GI following clears,ambulate, dc appiah continue drain continue abx for gangrenous joaquin Problems: ARMANDO MCGEE APRN Aug 17, 2016 13:23
[2016-08-17 15:11] VITALS: BP 126/72
[2016-08-17 19:29] VITALS: BP 145/80
[2016-08-17 23:26] VITALS: BP 144/76
[2016-08-18] MEDS: PIPERACILLIN/TAZOBACTAM 3.375 GM in IV NORMAL SALINE 50ML 50 ML IV SCH ×4 (00:35→17:35)
[2016-08-18] MEDS: POTASSIUM CL 20MEQ-0.45% NACL 1,000 ML IV SCH ×2 (00:50→11:51)
[2016-08-18 03:37] VITALS: BP 121/73
[2016-08-18] MEDS: PANTOPRAZOLE 40 MG TABLET. PO SCH (06:20)
[2016-08-18 07:00] VITALS: BP 133/71
[2016-08-18 07:01] LABS: BASO % 0 % (0-3); EOS % 1 % (0-3); HEMATOCRIT 32.2 % (39.0-53.0); LYMPH # 1.8 x10^3/uL (1.0-4.8); LYMPH % 16 % (24-48); MEAN CORPUSCULAR HEMOGLOBIN 34 pg (25-35); MEAN CORPUSCULAR HGB CONC 34 g/dL (31-37); MEAN CORPUSCULAR VOLUME 100 fL (79-100); MONO % 6 % (0-9); NEUT % 77 % (31-73); PLATELET COUNT 201 x10^3/uL (140-400); RED BLOOD COUNT 3.24 x10^6/uL (4.30-5.70); RED CELL DISTRIBUTION WIDTH 12.5 % (11.5-14.5); WHITE BLOOD COUNT 11.3 x10^3/uL (4.0-11.0)
[2016-08-18 07:19] LABS: CALCIUM 7.8 mg/dL (8.5-10.1); CREATININE 0.9 mg/dL (0.7-1.3); GFR 81.8; POTASSIUM 4.1 mmol/L (3.5-5.1)
[2016-08-18 09:42] LABS: ALBUMIN 2.4 g/dL (3.4-5.0); DIRECT BILIRUBIN 0.2 mg/dL (0.0-0.2); TOTAL BILIRUBIN 0.6 mg/dL (0.2-1.0); TOTAL PROTEIN 5.5 g/dL (6.4-8.2)
[2016-08-18] MEDS: POLYETHYLENE GLYCOL 3350 17 GM PACKET. PO SCH (09:55)
[2016-08-18] MEDS: ENOXAPARIN 40 MG/0.4 ML DISP.SYRIN. SQ SCH (09:55)
[2016-08-18] MEDS: OXYCODONE/APAP 5/325 TABLET. PO PRN (09:56)
[2016-08-18 11:00] VITALS: BP 150/86
--- NOTE | 2016-08-18 13:14 | PDOC ---
PROGRESS NOTES Chief Complaint Chief Complaint - abdominal pain, POD #2 laparoscopic converted to open cholecystectomy - cholelithiasis on CT - GERD - HTN - Obesity - Alcoholism History of Present Illness History of Present Illness No acute events overnight. POD #2 laparoscopic cholecystectomy that was converted to open. He is doing well with pain control. He is tolerating clear liquids and has been ambulating. He has passed flatus but has not had a bowel movement as of yet. He is visibly short of air and states this is his relative baseline. He is unaware of any pulmonary conditions. 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 He was agreeable to a consult with pulmonology. Vitals Vitals Vital Signs Date Time Temp Pulse Resp B/P Pulse Ox O2 Delivery O2 Flow Rate FiO2 3 11:00 97.6 55 14 150/86 96 Nasal Cannula 2.0 97.6 Physical Exam General: Alert, Oriented X3, Cooperative, mild distress (mild shortness of air ) Heart: Regular rate, Normal S1, Normal S2 Lungs: Clear, Other (no wheezing) Abdomen: Soft, Other (distented, incision dressing dry, LIT RUQ serosang ) Extremities: No cyanosis, No edema Skin: No significant lesion Labs LABS Laboratory Tests Test 3 06:35 White Blood Count 11.3x10^3/uL (4.0-11.0) Red Blood Count 3.24x10^6/uL (4.30-5.70) Hemoglobin 11.0g/dL (13.0-17.5) Hematocrit 32.2% (39.0-53.0) Mean Corpuscular Volume 100fL (79-100) Mean Corpuscular Hemoglobin 34pg (25-35) Mean Corpuscular Hemoglobin Concent 34g/dL (31-37) Red Cell Distribution Width 12.5% (11.5-14.5) Platelet Count 201x10^3/uL (140-400) Neutrophils (%) (Auto) 77% (31-73) Lymphocytes (%) (Auto) 16% (24-48) Monocytes (%) (Auto) 6% (0-9) Eosinophils (%) (Auto) 1% (0-3) Basophils (%) (Auto) 0% (0-3) Neutrophils # (Auto) 8.6x10^3uL (1.8-7.7) Lymphocytes # (Auto) 1.8x10^3/uL (1.0-4.8) Monocytes # (Auto) 0.7x10^3/uL (0.0-1.1) Eosinophils # (Auto) 0.1x10^3/uL (0.0-0.7) Basophils # (Auto) 0.0x10^3/uL (0.0-0.2) Sodium Level 137mmol/L (136-145) Potassium Level 4.1mmol/L (3.5-5.1) Chloride Level 105mmol/L (98-107) Carbon Dioxide Level 23mmol/L (21-32) Anion Gap 9 (6-14) Blood Urea Nitrogen 18mg/dL (8-26) Creatinine 0.9mg/dL (0.7-1.3) Estimated GFR (Cockcroft-Gault) 81.8 Glucose Level 99mg/dL (70-99) Calcium Level 7.8mg/dL (8.5-10.1) Total Bilirubin 0.6mg/dL (0.2-1.0) Direct Bilirubin 0.2mg/dL (0.0-0.2) Aspartate Amino Transf (AST/SGOT) 38U/L (15-37) Alanine Aminotransferase (ALT/SGPT) 71U/L (16-63) Alkaline Phosphatase 59U/L (46-116) Total Protein 5.5g/dL (6.4-8.2) Albumin 2.4g/dL (3.4-5.0) Review of Systems Review of Systems Denies chest pain. Denies fever or chills. Has passed flatus, no bowel movement. Assessment and Plan Assessmemt and Plan Problems Medical Problems: (1) Abdominal pain Status: Acute (2) Chest pain Status: Acute (3) Cholelithiasis with acute cholecystitis with biliary obstruction Status: Acute ASSESSMENT: - abdominal pain, POD #2 laparoscopic converted to open cholecystectomy - GERD - HTN - Obesity - Alcoholism PLAN: Pulmonology was consulted for shortness of air CXR and ABG ordered Surgery and GI following, their recommendations are appreciated Advance diet as tolerated as bowel function returns Encourage ambulation Continue narcotics for pain control Continue DVT ppx with lovenox Continue to monitor daily labs PT/OT eval and treat Problems: Comment Review of Relevant I have reviewed the following items nika (where applicable) has been applied. Labs Laboratory Tests Test 08/16/16 15:50 08/17/16 03:45 08/18/16 06:35 Prothrombin Time 16.9SEC (11.7-14.0) 17.1SEC (11.7-14.0) Prothromb Time International Ratio 1.5 (0.8-1.1) 1.5 (0.8-1.1) White Blood Count 18.1x10^3/uL (4.0-11.0) 11.3x10^3/uL (4.0-11.0) Red Blood Count 3.57x10^6/uL (4.30-5.70) 3.24x10^6/uL (4.30-5.70) Hemoglobin 12.0g/dL (13.0-17.5) 11.0g/dL (13.0-17.5) Hematocrit 35.4% (39.0-53.0) 32.2% (39.0-53.0) Mean Corpuscular Volume 99fL (79-100) 100fL (79-100) Mean Corpuscular Hemoglobin 34pg (25-35) 34pg (25-35) Mean Corpuscular Hemoglobin Concent 34g/dL (31-37) 34g/dL (31-37) Red Cell Distribution Width 12.8% (11.5-14.5) 12.5% (11.5-14.5) Platelet Count 176x10^3/uL (140-400) 201x10^3/uL (140-400) Neutrophils (%) (Auto) 88% (31-73) 77% (31-73) Lymphocytes (%) (Auto) 6% (24-48) 16% (24-48) Monocytes (%) (Auto) 6% (0-9) 6% (0-9) Eosinophils (%) (Auto) 0% (0-3) 1% (0-3) Basophils (%) (Auto) 0% (0-3) 0% (0-3) Neutrophils # (Auto) 15.9x10^3uL (1.8-7.7) 8.6x10^3uL (1.8-7.7) Lymphocytes # (Auto) 1.1x10^3/uL (1.0-4.8) 1.8x10^3/uL (1.0-4.8) Monocytes # (Auto) 1.1x10^3/uL (0.0-1.1) 0.7x10^3/uL (0.0-1.1) Eosinophils # (Auto) 0.0x10^3/uL (0.0-0.7) 0.1x10^3/uL (0.0-0.7) Basophils # (Auto) 0.0x10^3/uL (0.0-0.2) 0.0x10^3/uL (0.0-0.2) Sodium Level 137mmol/L (136-145) 137mmol/L (136-145) Potassium Level 4.1mmol/L (3.5-5.1) 4.1mmol/L (3.5-5.1) Chloride Level 102mmol/L (98-107) 105mmol/L (98-107) Carbon Dioxide Level 23mmol/L (21-32) 23mmol/L (21-32) Anion Gap 12 (6-14) 9 (6-14) Blood Urea Nitrogen 16mg/dL (8-26) 18mg/dL (8-26) Creatinine 0.8mg/dL (0.7-1.3) 0.9mg/dL (0.7-1.3) Estimated GFR (Cockcroft-Gault) 93.7 81.8 Glucose Level 134mg/dL (70-99) 99mg/dL (70-99) Calcium Level 8.1mg/dL (8.5-10.1) 7.8mg/dL (8.5-10.1) Total Bilirubin 1.2mg/dL (0.2-1.0) 0.6mg/dL (0.2-1.0) Direct Bilirubin 0.4mg/dL (0.0-0.2) 0.2mg/dL (0.0-0.2) Aspartate Amino Transf (AST/SGOT) 85U/L (15-37) 38U/L (15-37) Alanine Aminotransferase (ALT/SGPT) 98U/L (16-63) 71U/L (16-63) Alkaline Phosphatase 63U/L (46-116) 59U/L (46-116) Total Protein 6.4g/dL (6.4-8.2) 5.5g/dL (6.4-8.2) Albumin 2.6g/dL (3.4-5.0) 2.4g/dL (3.4-5.0) Laboratory Tests Test 08/18/16 06:35 White Blood Count 11.3x10^3/uL (4.0-11.0) Red Blood Count 3.24x10^6/uL (4.30-5.70) Hemoglobin 11.0g/dL (13.0-17.5) Hematocrit 32.2% (39.0-53.0) Mean Corpuscular Volume 100fL (79-100) Mean Corpuscular Hemoglobin 34pg (25-35) Mean Corpuscular Hemoglobin Concent 34g/dL (31-37) Red Cell Distribution Width 12.5% (11.5-14.5) Platelet Count 201x10^3/uL (140-400) Neutrophils (%) (Auto) 77% (31-73) Lymphocytes (%) (Auto) 16% (24-48) Monocytes (%) (Auto) 6% (0-9) Eosinophils (%) (Auto) 1% (0-3) Basophils (%) (Auto) 0% (0-3) Neutrophils # (Auto) 8.6x10^3uL (1.8-7.7) Lymphocytes # (Auto) 1.8x10^3/uL (1.0-4.8) Monocytes # (Auto) 0.7x10^3/uL (0.0-1.1) Eosinophils # (Auto) 0.1x10^3/uL (0.0-0.7) Basophils # (Auto) 0.0x10^3/uL (0.0-0.2) Sodium Level 137mmol/L (136-145) Potassium Level 4.1mmol/L (3.5-5.1) Chloride Level 105mmol/L (98-107) Carbon Dioxide Level 23mmol/L (21-32) Anion Gap 9 (6-14) Blood Urea Nitrogen 18mg/dL (8-26) Creatinine 0.9mg/dL (0.7-1.3) Estimated GFR (Cockcroft-Gault) 81.8 Glucose Level 99mg/dL (70-99) Calcium Level 7.8mg/dL (8.5-10.1) Total Bilirubin 0.6mg/dL (0.2-1.0) Direct Bilirubin 0.2mg/dL (0.0-0.2) Aspartate Amino Transf (AST/SGOT) 38U/L (15-37) Alanine Aminotransferase (ALT/SGPT) 71U/L (16-63) Alkaline Phosphatase 59U/L (46-116) Total Protein 5.5g/dL (6.4-8.2) Albumin 2.4g/dL (3.4-5.0) Microbiology 08/16/16 Gram Stain - Final, Complete Medications Current Medications Ondansetron HCl (Zofran) 4 mg 1X ONCE IV Last administered on 08/14/16 22:00 ; Start 08/14/16 at 21:30; Stop 08/14/16 at 21:31; Status DC Famotidine (Pepcid) 20 mg 1X ONCE IVP Last administered on 08/14/16 22:01; Start 08/14/16 at 21:30; Stop 08/14/16 at 21:31; Status DC Morphine Sulfate 4 mg 1X ONCE IV Last administered on 08/14/16 22:01; Start 08/14/16 at 21:30; Stop 08/14/16 at 21:31; Status DC Hydralazine HCl (Apresoline) 10 mg 1X ONCE IVP Last administered on 08/14/16 22:00; Start 08/14/16 at 21:30; Stop 08/14/16 at 21:31; Status DC Iohexol (Omnipaque 300 Mg/ml) 75 ml 1X ONCE IV Last administered on 08/14/16 22:25; Start 08/14/16 at 22:15; Stop 08/14/16 at 22:16; Status DC Info (Do NOT chart on this entry -- for MONITORING) 1 each PRN DAILY PRN MC SEE COMMENTS; Start 08/14/16 at 22:15; Stop 08/16/16 at 22:14; Status DC Aspirin (Children'S Aspirin) 324 mg 1X ONCE PO Last administered on 08/15/16 01:06; Start 08/15/16 at 00:15; Stop 08/15/16 at 00:16; Status DC Ondansetron HCl (Zofran) 4 mg PRN Q8HRS PRN IV NAUSEA/VOMITING; Start 08/15/16 at 00:15; Stop 08/15/16 at 13:57; Status DC Morphine Sulfate 4 mg 4 mg PRN Q2HR PRN IV PAIN Last administered on 08/15/16 08:58; Start 08/15/16 at 00:15; Stop 08/16/16 at 00:14; Status DC Sodium Chloride (Iv Sodium Chloride 0.9% 1000ml Bag) 1,000 ml @ 125 mls/hr Q8H IV Last administered on 08/15/16 20:32; Start 08/15/16 at 00:15; Stop at 00:14; Status DC Acetaminophen (Tylenol) 650 mg PRN Q4HRS PRN PO FEVER; Start 08/15/16 at 00:15 ; Stop 08/15/16 at 13:57; Status DC Acetaminophen (Tylenol) 650 mg PRN Q6HRS PRN PO MILD PAIN / TEMP; Start at 11:15 Ondansetron HCl (Zofran) 4 mg PRN Q6HRS PRN IV NAUSEA/VOMITING Last administered on 08/15/16 15:55; Start 08/15/16 at 11:15; Stop 08/16/16 at 19:01 ; Status DC Tramadol HCl (Ultram) 50 mg PRN Q6HRS PRN PO MODERATE - SEVERE PAIN Last administered on 08/15/16 14:36; Start 08/15/16 at 11:15 Morphine Sulfate 2 mg PRN Q2HR PRN IV PAIN; Start 08/15/16 at 11:15; Stop 08/15 at 20:32; Status DC Enoxaparin Sodium (Lovenox 40mg Syringe) 40 mg Q24H SQ Last administered on 14:34; Start 08/15/16 at 16:00; Stop 08/16/16 at 19:00; Status DC Pantoprazole Sodium (Protonix) 40 mg DAILYAC PO Last administered on 08/18/16 06:20; Start 08/15/16 at 15:00 Morphine Sulfate 2 mg PRN Q2HR PRN IV PAIN; Start 08/15/16 at 14:00; Stop 08/16 at 19:00; Status DC Morphine Sulfate 4 mg 1X ONCE IV Last administered on 08/16/16 08:30; Start 08/16/16 at 08:30; Stop 08/16/16 at 08:34; Status DC Morphine Sulfate 4 mg STK-MED ONCE .ROUTE ; Start 08/16/16 at 08:34; Stop at 08:35; Status DC Polyethylene Glycol 17 gm 17 gm DAILY PO Last administered on 08/18/16 09:55; Start 08/16/16 at 12:00 Piperacillin Sod/ Tazobactam Sod/ Sodium Chloride (Zosyn/Iv Sodium Chloride 0.9 % 50ml) 50 ml @ 100 mls/hr Q6HRS IV Last administered on 08/18/16 11:51; Start 08/16/16 at 12:15 Lidocaine HCl 100 mg STK-MED ONCE .ROUTE ; Start 08/16/16 at 13:33; Stop at 13:34; Status DC Dexamethasone Sodium Phosphate 20 mg 20 mg STK-MED ONCE .ROUTE ; Start 08/16/16 at 13:33; Stop 08/16/16 at 13:34; Status DC Propofol (Diprivan) 20 ml @ As Directed STK-MED ONCE IV ; Start 08/16/16 at 13: 33; Stop 08/16/16 at 13:34; Status DC Ondansetron HCl (Zofran) 4 mg STK-MED ONCE .ROUTE ; Start 08/16/16 at 13:33; Stop 08/16/16 at 13:34; Status DC Famotidine (Pepcid) 20 mg STK-MED ONCE .ROUTE ; Start 08/16/16 at 13:33; Stop at 13:34; Status DC Fentanyl Citrate (Fentanyl 2ml Vial) 100 mcg STK-MED ONCE .ROUTE ; Start at 13:33; Stop 08/16/16 at 13:34; Status DC Rocuronium [place] (Zemuron) 50 mg STK-MED ONCE .ROUTE ; Start 08/16/16 at 13:33 ; Stop 08/16/16 at 13:34; Status DC Cellulose 1 each STK-MED ONCE .ROUTE ; Start 08/16/16 at 13:37; Stop 08/16/16 at 13:38; Status DC Bupivacaine HCl/ Epinephrine Bitart (Sensorcain-Mpf Epi 0.5%-1:[id number]) 30 ml STK -MED ONCE .ROUTE Last administered on 08/16/16 16:51; Start 08/16/16 at 13:38 ; Stop 08/16/16 at 13:39; Status DC Iohexol (Omnipaque 300 Mg/ml) 50 ml STK-MED ONCE .ROUTE Last administered on 16:51; Start 08/16/16 at 13:38; Stop 08/16/16 at 13:39; Status DC Glucagon (Glucagen) 1 mg STK-MED ONCE .ROUTE Last administered on 08/16/16 18: 00; Start 08/16/16 at 13:38; Stop 08/16/16 at 13:39; Status DC Ondansetron HCl (Zofran) 4 mg PRN Q6HRS PRN IV Nausea; Start 08/16/16 at 14:00 ; Stop 08/17/16 at 13:59; Status DC Fentanyl Citrate (Fentanyl 2ml Vial) 25 mcg PRN Q5MIN PRN IV MILD PAIN; Start 08/16/16 at 14:00; Stop 08/17/16 at 13:59; Status DC Fentanyl Citrate (Fentanyl 2ml Vial) 50 mcg PRN Q5MIN PRN IV MODERATE PAIN Last administered on 08/16/16 19:41; Start 08/16/16 at 14:00; Stop 08/17/16 at 13:59; Status DC Morphine Sulfate 1 mg 1 mg PRN Q10MIN PRN IV SEVERE PAIN; Start 08/16/16 at 14: 00; Stop 08/17/16 at 13:59; Status DC Lactated Ringer's (Iv Lactated Ringers) 1,000 ml @ 30 mls/hr Q24H IV Last administered on 08/16/16 14:06; Start 08/16/16 at 13:53; Stop 08/17/16 at 01:52 ; Status DC Lidocaine HCl 2 ml 1X PRN PRN ID IV START; Start 08/16/16 at 14:00; Stop at 13:59; Status DC Hydromorphone HCl (Dilaudid) 0.5 mg PRN Q10MIN PRN IV SEV PAIN,Second choice; Start 08/16/16 at 14:00; Stop 08/17/16 at 13:59; Status DC Prochlorperazine Edisylate 5 mg 5 mg PACU PRN PRN IV NAUSEA Last administered on 08/16/16t 18:57; Start 08/16/16 at 14:00; Stop 08/17/16 at 13:59; Status DC Metronidazole (FLAGYL 500Mmg PREMIX) 100 ml @ 100 mls/hr 1X PREOP PRN IV prophylaxis\ Last administered on 08/16/16t 16:47; Start 08/17/16 at 06:00; Stop 08/17/16 at 18:00; Status DC Succinylcholine Chloride 200 mg 200 mg STK-MED ONCE .ROUTE ; Start 08/16/16 at 14:50; Stop 08/16/16 at 14:51; Status DC Metronidazole (FLAGYL 500Mmg PREMIX) 100 ml @ As Directed STK-MED ONCE IV ; Start 08/16/16 at 14:55; Stop 08/16/16 at 14:56; Status DC Phenylephrine HCl 1 mg STK-MED ONCE IV ; Start 08/16/16 at 16:44; Stop 08/16/16 at 16:45; Status DC Fentanyl Citrate (Fentanyl 2ml Vial) 100 mcg STK-MED ONCE .ROUTE ; Start at 16:58; Stop 08/16/16 at 16:59; Status DC Neostigmine Methylsulfate 5 mg STK-MED ONCE .ROUTE ; Start 08/16/16 at 16:59; Stop 08/16/16 at 17:00; Status DC Glycopyrrolate (Robinul) 1 mg STK-MED ONCE .ROUTE ; Start 08/16/16 at 16:59; Stop 08/16/16 at 17:00; Status DC Cellulose 1 each STK-MED ONCE .ROUTE ; Start 08/16/16 at 18:15; Stop 08/16/16 at 18:16; Status DC Fentanyl Citrate (Fentanyl 2ml Vial) 100 mcg STK-MED ONCE .ROUTE ; Start at 18:27; Stop 08/16/16 at 18:28; Status DC Sugammadex Sodium (Bridion) 200 mg STK-MED ONCE IVP ; Start 08/16/16 at 18:37; Stop 08/16/16 at 18:38; Status DC Diphenhydramine HCl (Benadryl) 25 mg PRN Q6HRS PRN PO ITCHING; Start 08/16/16 at 19:00 Diphenhydramine HCl (Benadryl) 25 mg PRN Q6HRS PRN IV ITCHING; Start 08/16/16 at 19:00 Enoxaparin Sodium (Lovenox 40mg Syringe) 40 mg Q24H SQ Last administered on 09:55; Start 08/17/16 at 09:00 Sodium Chloride 3 ml 3 ml QSHIFT PRN IV AFTER MEDS AND BLOOD DRAWS; Start 08/16 at 19:00 Potassium Chloride/Sodium Chloride 1,000 ml @ 100 mls/hr Q10H IV Last administered on 08/18/16 11:51; Start 08/16/16 at 18:50 Hydromorphone HCl (Dilaudid Standard [employer]IT[employer]) 30 ml @ 0 mls/hr CONT PRN PRN IV PROTOCOL Last administered on 08/16/16 19:28; Start 08/16/16 at 19:00; Stop at 11:30; Status DC Ondansetron HCl (Zofran) 4 mg PRN Q6HRS PRN IV NAUESA, 1ST CHOICE; Start at 19:00 Lorazepam (Ativan) 1 mg PRN Q6HRS PRN IV ANXIETY / AGITATION; Start 08/16/16 at 20:45 Oxycodone/ Acetaminophen (Percocet 5/325) 1 tab PRN Q4HRS PRN PO PAIN Last administered on 08/18/16 09:56; Start 08/17/16 at 11:30 Active Scripts Active Reported [Ranitidine] PO [Flomax] PO [Losartan] PO DAILY [Vitamin] 1 PO DAILY [Aspirin] Mg PO DAILY Vitals/I & O Vital Sign - Last 24 Hours 08/17/16 08/17/16 08/17/16 08/17/16 15:11 19:29 20:00 23:26 Temp 97.9 97.7 98.4 97.9 97.7 98.4 Pulse 57 57 60 Resp 18 20 B/P 126/72 145/80 144/76 Pulse Ox 96 96 98 O2 Delivery Nasal Cannula Room Air Room Air Room Air O2 Flow Rate 2.0 2.0 08/18/16 08/18/16 08/18/16 08/18/16 03:37 07:00 08:00 11:00 Temp 98.6 98.2 97.6 98.6 98.2 97.6 Pulse 56 52 55 Resp 14 B/P 121/73 133/71 150/86 Pulse Ox 95 95 96 O2 Delivery Room Air Room Air Room Air Nasal Cannula O2 Flow Rate 2.0 Intake and Output 08/17/16 08/17/16 08/18/16 15:00 23:00 07:00 Intake Total 840 ml 150 ml Output Total 150 ml 945 ml Balance 840 ml -150 ml -795 ml CATY VO III DO Aug 18, 2016 13:14
--- NOTE | 2016-08-18 13:44 | PATHOLOGY ---
PATHOLOGY REPORT * * * * * * * * FINAL DIAGNOSIS: A. Gallbladder, laparoscopic cholecystectomy: - Cholelithiasis. - Acute hemorrhagic and necrotizing cholecystitis. B. Cystic duct: - Acute hemorrhagic and necrotizing inflammation. COMMENT: There is no evidence of malignancy. (LITM:; d/t: 08/18/16) REPORT ELECTRONICALLY SIGNED BY: Heriberto Galo M.D. DATE/TIME: 08/18/2016 13:44 * * * * * * * * GROSS PATHOLOGY: A. Received in formalin labeled "Miguel Rondon, gallbladder with contents," is an 11.2 x 6.2 x 4.1 cm, previously opened gallbladder with dusky mast-waterman brown to adipose covered serosal surfaces. Opening the gallbladder reveals a velvety, light brown to mast-brown mucosa and an average wall thickness of 0.1 cm. Calculi are present displaying a yellow-waterman and multifaceted appearance, and no masses are noted grossly. Email Marketing Specialist sections from the body and fundus are submitted along with the proximal margin in cassette A1. B. The specimen is received in formalin labeled "Miguel Rondon, cystic duct". Received is a tubular segment of mast-waterman soft tissue measuring 0.8 cm in length by 1.5 cm in diameter. The specimen is submitted entirely in cassette B1. (CAA; 08/17/2016) INITIAL CPT CODE(S): A; 00777, 37576 Professional services performed [place] [address] Technical services performed by [facility] at [address] [place] [address], [facility] [address], [place] [address]. SPECIMEN(S) RECEIVED: A.Gallbladder and contents B.Cystic duct CLINICAL HISTORY: Cholecystitis PATIENT: MIGUEL RONDON /AGE: 10 1940 (Age: 76) PATIENT #: [id number] ALT CASE #: SPECIMEN COLLECTION DATE: 08/16/2016 SPECIMEN RECEIVED DATE: 08/17/2016 [facility] - [address] [place] [address] - PHONE: [phone] * * * END OF REPORT * * *
[2016-08-18 13:47] LABS: HCO3 ABG 18 mmol/L (21-28); PCO2 ABG 27 mmHg (35-46); PH ABG 7.45 (7.35-7.45); PO2 ABG 80 mmHg (65-108); SAT O2 ABG 96 % (92-99)
[2016-08-18 13:48] LABS: FIO2 ABG 21
--- NOTE | 2016-08-18 13:59 | PDOC ---
Subjective: Subjective: Feeling okay. Passing gas. Tolerating clears. Not too uncomfortable. Says MARISABEL stable - reports saw a digital community manager at [facility] a couple years ago. Objective: Vital Signs: Vital Signs Date Time Temp Pulse Resp B/P Pulse Ox O2 Delivery O2 Flow Rate FiO2 08/18/16 11:00 97.6 55 14 150/86 96 Nasal Cannula 2.0 97.6 Labs: Laboratory Tests Test 08/18/16 06:35 08/18/16 13:32 White Blood Count 11.3x10^3/uL Red Blood Count 3.24x10^6/uL Hemoglobin 11.0g/dL Hematocrit 32.2% Mean Corpuscular Volume 100fL Mean Corpuscular Hemoglobin 34pg Mean Corpuscular Hemoglobin Concent 34g/dL Red Cell Distribution Width 12.5% Platelet Count 201x10^3/uL Neutrophils (%) (Auto) 77% Lymphocytes (%) (Auto) 16% Monocytes (%) (Auto) 6% Eosinophils (%) (Auto) 1% Basophils (%) (Auto) 0% Neutrophils # (Auto) 8.6x10^3uL Lymphocytes # (Auto) 1.8x10^3/uL Monocytes # (Auto) 0.7x10^3/uL Eosinophils # (Auto) 0.1x10^3/uL Basophils # (Auto) 0.0x10^3/uL Sodium Level 137mmol/L Potassium Level 4.1mmol/L Chloride Level 105mmol/L Carbon Dioxide Level 23mmol/L Anion Gap 9 Blood Urea Nitrogen 18mg/dL Creatinine 0.9mg/dL Estimated GFR (Cockcroft-Gault) 81.8 Glucose Level 99mg/dL Calcium Level 7.8mg/dL Total Bilirubin 0.6mg/dL Direct Bilirubin 0.2mg/dL Aspartate Amino Transf (AST/SGOT) 38U/L Alanine Aminotransferase (ALT/SGPT) 71U/L Alkaline Phosphatase 59U/L Total Protein 5.5g/dL Albumin 2.4g/dL O2 Saturation 96% Arterial Blood pH 7.45 Arterial Blood pCO2 at Patient Temp 27mmHg Arterial Blood pO2 at Patient Temp 80mmHg Arterial Blood HCO3 18mmol/L Arterial Blood Base Excess -5mmol/L FiO2 21 PE: GEN: NAD LUNGS: ?tachypneic HEART: tachycardic ABD: BS more active, some distention but softer today, drain w/ serosang NEURO/PSYCH: A & O 3 A/P: S/p open cholecystectomy 08/16/16 -gangrenous cholecystitis, possible choledocholithiasis -WBC and LFTs improving SOA -has previous seen pulmonology ([facility]) -per primary -- Diet per surgery. LFTs better. D/w RN. APPLE WILLIAM Aug 18, 2016 13:59
--- NOTE | 2016-08-18 15:06 | RAD ---
Chest, 2 views, 08/18/2016: History: Shortness of breath Comparison is made to a study from 08/14/2016. The heart size and pulmonary vascularity are normal. There are mildly prominent basilar lung markings, similar to on the previous exam. The upper lung river are clear. There is no evidence of pleural fluid. Mild spurring is present in the spine. IMPRESSION: Mild bibasilar scarring and/or atelectasis.
[2016-08-18 15:07] VITALS: BP 145/80
--- NOTE | 2016-08-18 17:37 | PDOC ---
PULMONARY PROGRESS NOTES Vitals Vital Signs Date Time Temp Pulse Resp B/P Pulse Ox O2 Delivery O2 Flow Rate FiO2 08/18/16 15:07 98.1 51 18 145/80 95 Nasal Cannula 2.0 98.1 Lungs: Clear, Other (no wheezing) Labs Laboratory Tests Test 08/17/16 03:45 08/18/16 06:35 08/18/16 13:32 White Blood Count 18.1x10^3/uL (4.0-11.0) 11.3x10^3/uL (4.0-11.0) Red Blood Count 3.57x10^6/uL (4.30-5.70) 3.24x10^6/uL (4.30-5.70) Hemoglobin 12.0g/dL (13.0-17.5) 11.0g/dL (13.0-17.5) Hematocrit 35.4% (39.0-53.0) 32.2% (39.0-53.0) Mean Corpuscular Volume 99fL (79-100) 100fL (79-100) Mean Corpuscular Hemoglobin 34pg (25-35) 34pg (25-35) Mean Corpuscular Hemoglobin Concent 34g/dL (31-37) 34g/dL (31-37) Red Cell Distribution Width 12.8% (11.5-14.5) 12.5% (11.5-14.5) Platelet Count 176x10^3/uL (140-400) 201x10^3/uL (140-400) Neutrophils (%) (Auto) 88% (31-73) 77% (31-73) Lymphocytes (%) (Auto) 6% (24-48) 16% (24-48) Monocytes (%) (Auto) 6% (0-9) 6% (0-9) Eosinophils (%) (Auto) 0% (0-3) 1% (0-3) Basophils (%) (Auto) 0% (0-3) 0% (0-3) Neutrophils # (Auto) 15.9x10^3uL (1.8-7.7) 8.6x10^3uL (1.8-7.7) Lymphocytes # (Auto) 1.1x10^3/uL (1.0-4.8) 1.8x10^3/uL (1.0-4.8) Monocytes # (Auto) 1.1x10^3/uL (0.0-1.1) 0.7x10^3/uL (0.0-1.1) Eosinophils # (Auto) 0.0x10^3/uL (0.0-0.7) 0.1x10^3/uL (0.0-0.7) Basophils # (Auto) 0.0x10^3/uL (0.0-0.2) 0.0x10^3/uL (0.0-0.2) Prothrombin Time 17.1SEC (11.7-14.0) Prothromb Time International Ratio 1.5 (0.8-1.1) Sodium Level 137mmol/L (136-145) 137mmol/L (136-145) Potassium Level 4.1mmol/L (3.5-5.1) 4.1mmol/L (3.5-5.1) Chloride Level 102mmol/L (98-107) 105mmol/L (98-107) Carbon Dioxide Level 23mmol/L (21-32) 23mmol/L (21-32) Anion Gap 12 (6-14) 9 (6-14) Blood Urea Nitrogen 16mg/dL (8-26) 18mg/dL (8-26) Creatinine 0.8mg/dL (0.7-1.3) 0.9mg/dL (0.7-1.3) Estimated GFR (Cockcroft-Gault) 93.7 81.8 Glucose Level 134mg/dL (70-99) 99mg/dL (70-99) Calcium Level 8.1mg/dL (8.5-10.1) 7.8mg/dL (8.5-10.1) Total Bilirubin 1.2mg/dL (0.2-1.0) 0.6mg/dL (0.2-1.0) Direct Bilirubin 0.4mg/dL (0.0-0.2) 0.2mg/dL (0.0-0.2) Aspartate Amino Transf (AST/SGOT) 85U/L (15-37) 38U/L (15-37) Alanine Aminotransferase (ALT/SGPT) 98U/L (16-63) 71U/L (16-63) Alkaline Phosphatase 63U/L (46-116) 59U/L (46-116) Total Protein 6.4g/dL (6.4-8.2) 5.5g/dL (6.4-8.2) Albumin 2.6g/dL (3.4-5.0) 2.4g/dL (3.4-5.0) O2 Saturation 96% (92-99) Arterial Blood pH 7.45 (7.35-7.45) Arterial Blood pCO2 at Patient Temp 27mmHg (35-46) Arterial Blood pO2 at Patient Temp 80mmHg (65-108) Arterial Blood HCO3 18mmol/L (21-28) Arterial Blood Base Excess -5mmol/L (-3-3) FiO2 21 Laboratory Tests Test 08/18/16 06:35 08/18/16 13:32 White Blood Count 11.3x10^3/uL (4.0-11.0) Red Blood Count 3.24x10^6/uL (4.30-5.70) Hemoglobin 11.0g/dL (13.0-17.5) Hematocrit 32.2% (39.0-53.0) Mean Corpuscular Volume 100fL (79-100) Mean Corpuscular Hemoglobin 34pg (25-35) Mean Corpuscular Hemoglobin Concent 34g/dL (31-37) Red Cell Distribution Width 12.5% (11.5-14.5) Platelet Count 201x10^3/uL (140-400) Neutrophils (%) (Auto) 77% (31-73) Lymphocytes (%) (Auto) 16% (24-48) Monocytes (%) (Auto) 6% (0-9) Eosinophils (%) (Auto) 1% (0-3) Basophils (%) (Auto) 0% (0-3) Neutrophils # (Auto) 8.6x10^3uL (1.8-7.7) Lymphocytes # (Auto) 1.8x10^3/uL (1.0-4.8) Monocytes # (Auto) 0.7x10^3/uL (0.0-1.1) Eosinophils # (Auto) 0.1x10^3/uL (0.0-0.7) Basophils # (Auto) 0.0x10^3/uL (0.0-0.2) Sodium Level 137mmol/L (136-145) Potassium Level 4.1mmol/L (3.5-5.1) Chloride Level 105mmol/L (98-107) Carbon Dioxide Level 23mmol/L (21-32) Anion Gap 9 (6-14) Blood Urea Nitrogen 18mg/dL (8-26) Creatinine 0.9mg/dL (0.7-1.3) Estimated GFR (Cockcroft-Gault) 81.8 Glucose Level 99mg/dL (70-99) Calcium Level 7.8mg/dL (8.5-10.1) Total Bilirubin 0.6mg/dL (0.2-1.0) Direct Bilirubin 0.2mg/dL (0.0-0.2) Aspartate Amino Transf (AST/SGOT) 38U/L (15-37) Alanine Aminotransferase (ALT/SGPT) 71U/L (16-63) Alkaline Phosphatase 59U/L (46-116) Total Protein 5.5g/dL (6.4-8.2) Albumin 2.4g/dL (3.4-5.0) O2 Saturation 96% (92-99) Arterial Blood pH 7.45 (7.35-7.45) Arterial Blood pCO2 at Patient Temp 27mmHg (35-46) Arterial Blood pO2 at Patient Temp 80mmHg (65-108) Arterial Blood HCO3 18mmol/L (21-28) Arterial Blood Base Excess -5mmol/L (-3-3) FiO2 21 Medications Active Scripts Medications Dose Route/Sig Days Date Category [Ranitidine] PO 08/15/16 Reported [Flomax] PO 08/15/16 Reported [Losartan] PO DAILY 08/15/16 Reported [Vitamin] 1 PO DAILY 08/15/16 Reported [Aspirin] Mg PO DAILY 08/15/16 Reported Impression . FULL NOTE DICTATED SUSPECT MILD FIBROSIS AND COPD DYSPNEA SEC TO ABOVE THANKS JOHANNA GROSS MD Aug 18, 2016 17:37
--- NOTE | 2016-08-18 17:51 | PDOC ---
SURGICAL PROGRESS NOTE Subjective would like more to eat Vital Signs Vital Signs Date Time Temp Pulse Resp B/P Pulse Ox O2 Delivery O2 Flow Rate FiO2 08/18/16 15:07 98.1 51 18 145/80 95 Nasal Cannula 2.0 98.1 I&O Intake and Output 08/18/16 07:00 Intake Total 990 ml Output Total 1095 ml Balance -105 ml Intake Oral 990 ml Output Urine Total 955 ml Drainage Total 140 ml # Voids 1 PATIENT HAS A VERA: No General: Alert, No acute distress Abdomen: Soft Labs Laboratory Tests Test 08/17/16 03:45 08/18/16 06:35 08/18/16 13:32 White Blood Count 18.1x10^3/uL (4.0-11.0) 11.3x10^3/uL (4.0-11.0) Red Blood Count 3.57x10^6/uL (4.30-5.70) 3.24x10^6/uL (4.30-5.70) Hemoglobin 12.0g/dL (13.0-17.5) 11.0g/dL (13.0-17.5) Hematocrit 35.4% (39.0-53.0) 32.2% (39.0-53.0) Mean Corpuscular Volume 99fL (79-100) 100fL (79-100) Mean Corpuscular Hemoglobin 34pg (25-35) 34pg (25-35) Mean Corpuscular Hemoglobin Concent 34g/dL (31-37) 34g/dL (31-37) Red Cell Distribution Width 12.8% (11.5-14.5) 12.5% (11.5-14.5) Platelet Count 176x10^3/uL (140-400) 201x10^3/uL (140-400) Neutrophils (%) (Auto) 88% (31-73) 77% (31-73) Lymphocytes (%) (Auto) 6% (24-48) 16% (24-48) Monocytes (%) (Auto) 6% (0-9) 6% (0-9) Eosinophils (%) (Auto) 0% (0-3) 1% (0-3) Basophils (%) (Auto) 0% (0-3) 0% (0-3) Neutrophils # (Auto) 15.9x10^3uL (1.8-7.7) 8.6x10^3uL (1.8-7.7) Lymphocytes # (Auto) 1.1x10^3/uL (1.0-4.8) 1.8x10^3/uL (1.0-4.8) Monocytes # (Auto) 1.1x10^3/uL (0.0-1.1) 0.7x10^3/uL (0.0-1.1) Eosinophils # (Auto) 0.0x10^3/uL (0.0-0.7) 0.1x10^3/uL (0.0-0.7) Basophils # (Auto) 0.0x10^3/uL (0.0-0.2) 0.0x10^3/uL (0.0-0.2) Prothrombin Time 17.1SEC (11.7-14.0) Prothromb Time International Ratio 1.5 (0.8-1.1) Sodium Level 137mmol/L (136-145) 137mmol/L (136-145) Potassium Level 4.1mmol/L (3.5-5.1) 4.1mmol/L (3.5-5.1) Chloride Level 102mmol/L (98-107) 105mmol/L (98-107) Carbon Dioxide Level 23mmol/L (21-32) 23mmol/L (21-32) Anion Gap 12 (6-14) 9 (6-14) Blood Urea Nitrogen 16mg/dL (8-26) 18mg/dL (8-26) Creatinine 0.8mg/dL (0.7-1.3) 0.9mg/dL (0.7-1.3) Estimated GFR (Cockcroft-Gault) 93.7 81.8 Glucose Level 134mg/dL (70-99) 99mg/dL (70-99) Calcium Level 8.1mg/dL (8.5-10.1) 7.8mg/dL (8.5-10.1) Total Bilirubin 1.2mg/dL (0.2-1.0) 0.6mg/dL (0.2-1.0) Direct Bilirubin 0.4mg/dL (0.0-0.2) 0.2mg/dL (0.0-0.2) Aspartate Amino Transf (AST/SGOT) 85U/L (15-37) 38U/L (15-37) Alanine Aminotransferase (ALT/SGPT) 98U/L (16-63) 71U/L (16-63) Alkaline Phosphatase 63U/L (46-116) 59U/L (46-116) Total Protein 6.4g/dL (6.4-8.2) 5.5g/dL (6.4-8.2) Albumin 2.6g/dL (3.4-5.0) 2.4g/dL (3.4-5.0) O2 Saturation 96% (92-99) Arterial Blood pH 7.45 (7.35-7.45) Arterial Blood pCO2 at Patient Temp 27mmHg (35-46) Arterial Blood pO2 at Patient Temp 80mmHg (65-108) Arterial Blood HCO3 18mmol/L (21-28) Arterial Blood Base Excess -5mmol/L (-3-3) FiO2 21 Laboratory Tests Test 08/18/16 06:35 08/18/16 13:32 White Blood Count 11.3x10^3/uL (4.0-11.0) Red Blood Count 3.24x10^6/uL (4.30-5.70) Hemoglobin 11.0g/dL (13.0-17.5) Hematocrit 32.2% (39.0-53.0) Mean Corpuscular Volume 100fL (79-100) Mean Corpuscular Hemoglobin 34pg (25-35) Mean Corpuscular Hemoglobin Concent 34g/dL (31-37) Red Cell Distribution Width 12.5% (11.5-14.5) Platelet Count 201x10^3/uL (140-400) Neutrophils (%) (Auto) 77% (31-73) Lymphocytes (%) (Auto) 16% (24-48) Monocytes (%) (Auto) 6% (0-9) Eosinophils (%) (Auto) 1% (0-3) Basophils (%) (Auto) 0% (0-3) Neutrophils # (Auto) 8.6x10^3uL (1.8-7.7) Lymphocytes # (Auto) 1.8x10^3/uL (1.0-4.8) Monocytes # (Auto) 0.7x10^3/uL (0.0-1.1) Eosinophils # (Auto) 0.1x10^3/uL (0.0-0.7) Basophils # (Auto) 0.0x10^3/uL (0.0-0.2) Sodium Level 137mmol/L (136-145) Potassium Level 4.1mmol/L (3.5-5.1) Chloride Level 105mmol/L (98-107) Carbon Dioxide Level 23mmol/L (21-32) Anion Gap 9 (6-14) Blood Urea Nitrogen 18mg/dL (8-26) Creatinine 0.9mg/dL (0.7-1.3) Estimated GFR (Cockcroft-Gault) 81.8 Glucose Level 99mg/dL (70-99) Calcium Level 7.8mg/dL (8.5-10.1) Total Bilirubin 0.6mg/dL (0.2-1.0) Direct Bilirubin 0.2mg/dL (0.0-0.2) Aspartate Amino Transf (AST/SGOT) 38U/L (15-37) Alanine Aminotransferase (ALT/SGPT) 71U/L (16-63) Alkaline Phosphatase 59U/L (46-116) Total Protein 5.5g/dL (6.4-8.2) Albumin 2.4g/dL (3.4-5.0) O2 Saturation 96% (92-99) Arterial Blood pH 7.45 (7.35-7.45) Arterial Blood pCO2 at Patient Temp 27mmHg (35-46) Arterial Blood pO2 at Patient Temp 80mmHg (65-108) Arterial Blood HCO3 18mmol/L (21-28) Arterial Blood Base Excess -5mmol/L (-3-3) FiO2 21 Problem List Problems Medical Problems: (1) Abdominal pain Status: Acute (2) Chest pain Status: Acute (3) Cholelithiasis with acute cholecystitis with biliary obstruction Status: Acute Assessment/Plan s/p open joaquin advance diet home soon Problems: NIMA MURO MD Aug 18, 2016 17:51
[2016-08-18] MEDS ORDERED: BISACODYL 10 MG SUPP.RECT PR PRN (18:00)
[2016-08-18 19:00] VITALS: BP 150/92
[2016-08-18 23:00] VITALS: BP 139/66
[2016-08-19] MEDS: POTASSIUM CL 20MEQ-0.45% NACL 1,000 ML IV SCH ×3 (00:46→15:08)
[2016-08-19] MEDS: PIPERACILLIN/TAZOBACTAM 3.375 GM in IV NORMAL SALINE 50ML 50 ML IV SCH ×4 (00:46→17:30)
[2016-08-19 03:00] VITALS: BP 142/71
--- NOTE | 2016-08-19 03:16 | CONS ---
DATE OF CONSULTATION: 08/18/2016 ATTENDING PHYSICIAN: Dr. Paige Ayala. CONSULTING PHYSICIAN: Dr. Johanna Gross. REASON FOR CONSULTATION: The patient seen in pulmonary consultation at the request of Dr. Ayala for abnormal x-ray revealing basilar scarring and increasing shortness of breath. HISTORY OF PRESENT ILLNESS: The patient is a 76-year-old that presented with abdominal pain, found to have cholelithiasis with acute cholecystitis, underwent open procedure with cholangiogram. He is postop day #2. He was having some increasing shortness of breath. Dr. Ayala noted increase in respiratory rate. I was asked to see him in consultation. The patient has never been diagnosed with COPD. He has had multiple occupations significant inhalation of toxic fumes and dust. He had an x-ray revealing basilar infiltrates. He actually had a CT abdomen. Report indicates that he may have fibrosis in the bases of the lungs. The patient does not wear oxygen at home. He has a cough productive of sputum. No fever, chills . He has not recently been treated for acute exacerbation of COPD. There is no history of pneumonia. PAST MEDICAL HISTORY: Hypertension. PAST SURGICAL HISTORY: None. SOCIAL HISTORY: He quit tobacco in 1969, a heavy alcohol user, significant occupational exposures at work. MEDICATIONS: List was reviewed. Please see the MRAD. ALLERGIES: No known drug allergies. FAMILY HISTORY: Noncontributory. PHYSICAL EXAMINATION: VITAL SIGNS: Stable. O2 saturation was greater than 92%. HEENT: Eyes, the sclerae were nonicteric. NECK: Jugular venous distention was not elevated. No lymphadenopathy. CHEST: Full expansion. LUNGS: Crackles in the bases. No wheezes. CARDIOVASCULAR: Regular rate and rhythm with S1, S2, no S3. ABDOMEN: Obese, dressing in place. EXTREMITIES: No clubbing, cyanosis. Minimal edema. NEUROLOGIC: The patient was awake, alert, following commands. A detailed neuro exam was not performed. LABORATORY DATA: Reviewed. White count was slightly elevated. Arterial blood gas pH of 7.45, pCO2 of 27, pO2 of 80. INR was 1.5. Electrolytes were noted. BUN and creatinine were normal. Chest x-ray revealed some basilar scarring. IMPRESSION: 1. Abnormal x-ray compatible with fibrosis. 2. Progressive dyspnea secondary to chronic obstructive pulmonary disease and mild fibrosis. Fibrosis is best visualized on CT abdomen. 3. Status post cholecystectomy. 4. History of heavy alcohol intake. PLAN: 1. Recommend a 6-minute walk prior to discharge. 2. Outpatient PFTs. 3. Nebulized treatments. I do appreciate the privilege in sharing in the patient's care. JOHANNA GROSS MD DR: FAVIOLA/krystian JOB#: [id number] / [id number]
[2016-08-19 05:20] LABS: BASO % 1 % (0-3); EOS % 2 % (0-3); HEMATOCRIT 33.9 % (39.0-53.0); HEMOGLOBIN 11.9 g/dL (13.0-17.5); LYMPH # 2.1 x10^3/uL (1.0-4.8); LYMPH % 23 % (24-48); MEAN CORPUSCULAR HEMOGLOBIN 34 pg (25-35); MEAN CORPUSCULAR HGB CONC 35 g/dL (31-37); MEAN CORPUSCULAR VOLUME 97 fL (79-100); MONO % 9 % (0-9); NEUT % 66 % (31-73); PLATELET COUNT 246 x10^3/uL (140-400); RED BLOOD COUNT 3.51 x10^6/uL (4.30-5.70); RED CELL DISTRIBUTION WIDTH 12.7 % (11.5-14.5); WHITE BLOOD COUNT 9.1 x10^3/uL (4.0-11.0)
[2016-08-19 05:32] LABS: CALCIUM 8.2 mg/dL (8.5-10.1); CREATININE 0.8 mg/dL (0.7-1.3); GFR 93.7; POTASSIUM 4.3 mmol/L (3.5-5.1)
[2016-08-19 07:00] VITALS: BP 170/89
[2016-08-19] MEDS: POLYETHYLENE GLYCOL 3350 17 GM PACKET. PO SCH (07:57)
[2016-08-19] MEDS: PANTOPRAZOLE 40 MG TABLET. PO SCH (07:57)
[2016-08-19] MEDS: ENOXAPARIN 40 MG/0.4 ML DISP.SYRIN. SQ SCH (07:59)
--- NOTE | 2016-08-19 09:58 | PDOC ---
ARMANDO MCGEE [employer] 08/19/16 0958: SURGICAL PROGRESS NOTE Subjective tolerating diet pain managed no n/v maybe home today Vital Signs Vital Signs Date Time Temp Pulse Resp B/P Pulse Ox O2 Delivery O2 Flow Rate FiO2 08/19/16 07:00 95.7 56 14 170/89 98 Room Air 95.7 08/18/16 20:00 2.0 I&O Intake and Output 08/19/16 07:00 Intake Total 3720 ml Output Total 2725 ml Balance 995 ml Intake Oral 3620 ml IV Total 100 ml Output Urine Total 2600 ml Drainage Total 125 ml # Voids 13 General: Alert, Oriented X3, Cooperative, No acute distress Abdomen: Soft, Other (LIT serosang) Labs Laboratory Tests Test 08/18/16 06:35 08/18/16 13:32 08/19/16 04:55 White Blood Count 11.3x10^3/uL (4.0-11.0) 9.1x10^3/uL (4.0-11.0) Red Blood Count 3.24x10^6/uL (4.30-5.70) 3.51x10^6/uL (4.30-5.70) Hemoglobin 11.0g/dL (13.0-17.5) 11.9g/dL (13.0-17.5) Hematocrit 32.2% (39.0-53.0) 33.9% (39.0-53.0) Mean Corpuscular Volume 100fL (79-100) 97fL (79-100) Mean Corpuscular Hemoglobin 34pg (25-35) 34pg (25-35) Mean Corpuscular Hemoglobin Concent 34g/dL (31-37) 35g/dL (31-37) Red Cell Distribution Width 12.5% (11.5-14.5) 12.7% (11.5-14.5) Platelet Count 201x10^3/uL (140-400) 246x10^3/uL (140-400) Neutrophils (%) (Auto) 77% (31-73) 66% (31-73) Lymphocytes (%) (Auto) 16% (24-48) 23% (24-48) Monocytes (%) (Auto) 6% (0-9) 9% (0-9) Eosinophils (%) (Auto) 1% (0-3) 2% (0-3) Basophils (%) (Auto) 0% (0-3) 1% (0-3) Neutrophils # (Auto) 8.6x10^3uL (1.8-7.7) 6.0x10^3uL (1.8-7.7) Lymphocytes # (Auto) 1.8x10^3/uL (1.0-4.8) 2.1x10^3/uL (1.0-4.8) Monocytes # (Auto) 0.7x10^3/uL (0.0-1.1) 0.8x10^3/uL (0.0-1.1) Eosinophils # (Auto) 0.1x10^3/uL (0.0-0.7) 0.2x10^3/uL (0.0-0.7) Basophils # (Auto) 0.0x10^3/uL (0.0-0.2) 0.0x10^3/uL (0.0-0.2) Sodium Level 137mmol/L (136-145) 136mmol/L (136-145) Potassium Level 4.1mmol/L (3.5-5.1) 4.3mmol/L (3.5-5.1) Chloride Level 105mmol/L (98-107) 104mmol/L (98-107) Carbon Dioxide Level 23mmol/L (21-32) 22mmol/L (21-32) Anion Gap 9 (6-14) 10 (6-14) Blood Urea Nitrogen 18mg/dL (8-26) 13mg/dL (8-26) Creatinine 0.9mg/dL (0.7-1.3) 0.8mg/dL (0.7-1.3) Estimated GFR (Cockcroft-Gault) 81.8 93.7 Glucose Level 99mg/dL (70-99) 101mg/dL (70-99) Calcium Level 7.8mg/dL (8.5-10.1) 8.2mg/dL (8.5-10.1) Total Bilirubin 0.6mg/dL (0.2-1.0) Direct Bilirubin 0.2mg/dL (0.0-0.2) Aspartate Amino Transf (AST/SGOT) 38U/L (15-37) Alanine Aminotransferase (ALT/SGPT) 71U/L (16-63) Alkaline Phosphatase 59U/L (46-116) Total Protein 5.5g/dL (6.4-8.2) Albumin 2.4g/dL (3.4-5.0) O2 Saturation 96% (92-99) Arterial Blood pH 7.45 (7.35-7.45) Arterial Blood pCO2 at Patient Temp 27mmHg (35-46) Arterial Blood pO2 at Patient Temp 80mmHg (65-108) Arterial Blood HCO3 18mmol/L (21-28) Arterial Blood Base Excess -5mmol/L (-3-3) FiO2 21 Laboratory Tests Test 08/18/16 13:32 08/19/16 04:55 O2 Saturation 96% (92-99) Arterial Blood pH 7.45 (7.35-7.45) Arterial Blood pCO2 at Patient Temp 27mmHg (35-46) Arterial Blood pO2 at Patient Temp 80mmHg (65-108) Arterial Blood HCO3 18mmol/L (21-28) Arterial Blood Base Excess -5mmol/L (-3-3) FiO2 21 White Blood Count 9.1x10^3/uL (4.0-11.0) Red Blood Count 3.51x10^6/uL (4.30-5.70) Hemoglobin 11.9g/dL (13.0-17.5) Hematocrit 33.9% (39.0-53.0) Mean Corpuscular Volume 97fL (79-100) Mean Corpuscular Hemoglobin 34pg (25-35) Mean Corpuscular Hemoglobin Concent 35g/dL (31-37) Red Cell Distribution Width 12.7% (11.5-14.5) Platelet Count 246x10^3/uL (140-400) Neutrophils (%) (Auto) 66% (31-73) Lymphocytes (%) (Auto) 23% (24-48) Monocytes (%) (Auto) 9% (0-9) Eosinophils (%) (Auto) 2% (0-3) Basophils (%) (Auto) 1% (0-3) Neutrophils # (Auto) 6.0x10^3uL (1.8-7.7) Lymphocytes # (Auto) 2.1x10^3/uL (1.0-4.8) Monocytes # (Auto) 0.8x10^3/uL (0.0-1.1) Eosinophils # (Auto) 0.2x10^3/uL (0.0-0.7) Basophils # (Auto) 0.0x10^3/uL (0.0-0.2) Sodium Level 136mmol/L (136-145) Potassium Level 4.3mmol/L (3.5-5.1) Chloride Level 104mmol/L (98-107) Carbon Dioxide Level 22mmol/L (21-32) Anion Gap 10 (6-14) Blood Urea Nitrogen 13mg/dL (8-26) Creatinine 0.8mg/dL (0.7-1.3) Estimated GFR (Cockcroft-Gault) 93.7 Glucose Level 101mg/dL (70-99) Calcium Level 8.2mg/dL (8.5-10.1) Problem List Problems Medical Problems: (1) Abdominal pain Status: Acute (2) Chest pain Status: Acute (3) Cholelithiasis with acute cholecystitis with biliary obstruction Status: Acute Assessment/Plan s/p lap joaquin drain 125cc ok to dc home, if goes home leave drain and Fu with Dr Muro on Tuesday Problems: NIMA MURO MD 08/19/16 1454: SURGICAL PROGRESS NOTE Assessment/Plan pt seen earlier agree with above advance diet Problems: ARMANDO MCGEE APRN Aug 19, 2016 09:58 NIMA MURO MD Aug 19, 2016 14:54
--- NOTE | 2016-08-19 10:07 | PDOC ---
PROGRESS NOTES Chief Complaint Chief Complaint - abdominal pain, POD #3 laparoscopic converted to open cholecystectomy - cholelithiasis on CT - GERD - HTN - Obesity - Alcoholism History of Present Illness History of Present Illness No acute events overnight. POD #3 laparoscopic cholecystectomy that was converted to open. He is doing well and tolerating his diet. He reports that he is passing flatus and has had a bowel movement. His shortness of breath is at baseline. 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 Vitals Vitals Vital Signs Date Time Temp Pulse Resp B/P Pulse Ox O2 Delivery O2 Flow Rate FiO2 3 07:00 95.7 56 14 170/89 98 Room Air 95.7 08/18/16 20:00 2.0 Physical Exam General: Alert, Oriented X3, No acute distress Heart: Regular rate, No murmurs Lungs: Clear, Other (no wheezing) Abdomen: Soft, Other (LIT serosang, appropriately tender to palpation ) Extremities: No cyanosis, No edema Skin: No significant lesion Labs LABS Laboratory Tests Test 08/18/16 13:32 3 04:55 O2 Saturation 96% (92-99) Arterial Blood pH 7.45 (7.35-7.45) Arterial Blood pCO2 at Patient Temp 27mmHg (35-46) Arterial Blood pO2 at Patient Temp 80mmHg (65-108) Arterial Blood HCO3 18mmol/L (21-28) Arterial Blood Base Excess -5mmol/L (-3-3) FiO2 21 White Blood Count 9.1x10^3/uL (4.0-11.0) Red Blood Count 3.51x10^6/uL (4.30-5.70) Hemoglobin 11.9g/dL (13.0-17.5) Hematocrit 33.9% (39.0-53.0) Mean Corpuscular Volume 97fL (79-100) Mean Corpuscular Hemoglobin 34pg (25-35) Mean Corpuscular Hemoglobin Concent 35g/dL (31-37) Red Cell Distribution Width 12.7% (11.5-14.5) Platelet Count 246x10^3/uL (140-400) Neutrophils (%) (Auto) 66% (31-73) Lymphocytes (%) (Auto) 23% (24-48) Monocytes (%) (Auto) 9% (0-9) Eosinophils (%) (Auto) 2% (0-3) Basophils (%) (Auto) 1% (0-3) Neutrophils # (Auto) 6.0x10^3uL (1.8-7.7) Lymphocytes # (Auto) 2.1x10^3/uL (1.0-4.8) Monocytes # (Auto) 0.8x10^3/uL (0.0-1.1) Eosinophils # (Auto) 0.2x10^3/uL (0.0-0.7) Basophils # (Auto) 0.0x10^3/uL (0.0-0.2) Sodium Level 136mmol/L (136-145) Potassium Level 4.3mmol/L (3.5-5.1) Chloride Level 104mmol/L (98-107) Carbon Dioxide Level 22mmol/L (21-32) Anion Gap 10 (6-14) Blood Urea Nitrogen 13mg/dL (8-26) Creatinine 0.8mg/dL (0.7-1.3) Estimated GFR (Cockcroft-Gault) 93.7 Glucose Level 101mg/dL (70-99) Calcium Level 8.2mg/dL (8.5-10.1) Review of Systems Review of Systems Denies chest pain and increased shortness of breath. Abdominal pain is well controlled. Denies fever or chills. Assessment and Plan Assessmemt and Plan Problems Medical Problems: (1) Abdominal pain Status: Acute (2) Chest pain Status: Acute (3) Cholelithiasis with acute cholecystitis with biliary obstruction Status: Acute ASSESSMENT: - abdominal pain, POD #3 laparoscopic converted to open cholecystectomy - GERD - HTN - Obesity - Alcoholism PLAN: Continue supplemental oxygen as needed Surgery,GI and pulmonology following, their recommendations are appreciated Advance diet as tolerated Encourage ambulation Continue narcotics for pain control Continue DVT ppx with lovenox Continue to monitor daily labs PT/OT eval and treat Possible discharge home today Problems: Comment Review of Relevant I have reviewed the following items nika (where applicable) has been applied. Labs Laboratory Tests Test 08/18/16 06:35 08/18/16 13:32 08/19/16 04:55 White Blood Count 11.3x10^3/uL (4.0-11.0) 9.1x10^3/uL (4.0-11.0) Red Blood Count 3.24x10^6/uL (4.30-5.70) 3.51x10^6/uL (4.30-5.70) Hemoglobin 11.0g/dL (13.0-17.5) 11.9g/dL (13.0-17.5) Hematocrit 32.2% (39.0-53.0) 33.9% (39.0-53.0) Mean Corpuscular Volume 100fL (79-100) 97fL (79-100) Mean Corpuscular Hemoglobin 34pg (25-35) 34pg (25-35) Mean Corpuscular Hemoglobin Concent 34g/dL (31-37) 35g/dL (31-37) Red Cell Distribution Width 12.5% (11.5-14.5) 12.7% (11.5-14.5) Platelet Count 201x10^3/uL (140-400) 246x10^3/uL (140-400) Neutrophils (%) (Auto) 77% (31-73) 66% (31-73) Lymphocytes (%) (Auto) 16% (24-48) 23% (24-48) Monocytes (%) (Auto) 6% (0-9) 9% (0-9) Eosinophils (%) (Auto) 1% (0-3) 2% (0-3) Basophils (%) (Auto) 0% (0-3) 1% (0-3) Neutrophils # (Auto) 8.6x10^3uL (1.8-7.7) 6.0x10^3uL (1.8-7.7) Lymphocytes # (Auto) 1.8x10^3/uL (1.0-4.8) 2.1x10^3/uL (1.0-4.8) Monocytes # (Auto) 0.7x10^3/uL (0.0-1.1) 0.8x10^3/uL (0.0-1.1) Eosinophils # (Auto) 0.1x10^3/uL (0.0-0.7) 0.2x10^3/uL (0.0-0.7) Basophils # (Auto) 0.0x10^3/uL (0.0-0.2) 0.0x10^3/uL (0.0-0.2) Sodium Level 137mmol/L (136-145) 136mmol/L (136-145) Potassium Level 4.1mmol/L (3.5-5.1) 4.3mmol/L (3.5-5.1) Chloride Level 105mmol/L (98-107) 104mmol/L (98-107) Carbon Dioxide Level 23mmol/L (21-32) 22mmol/L (21-32) Anion Gap 9 (6-14) 10 (6-14) Blood Urea Nitrogen 18mg/dL (8-26) 13mg/dL (8-26) Creatinine 0.9mg/dL (0.7-1.3) 0.8mg/dL (0.7-1.3) Estimated GFR (Cockcroft-Gault) 81.8 93.7 Glucose Level 99mg/dL (70-99) 101mg/dL (70-99) Calcium Level 7.8mg/dL (8.5-10.1) 8.2mg/dL (8.5-10.1) Total Bilirubin 0.6mg/dL (0.2-1.0) Direct Bilirubin 0.2mg/dL (0.0-0.2) Aspartate Amino Transf (AST/SGOT) 38U/L (15-37) Alanine Aminotransferase (ALT/SGPT) 71U/L (16-63) Alkaline Phosphatase 59U/L (46-116) Total Protein 5.5g/dL (6.4-8.2) Albumin 2.4g/dL (3.4-5.0) O2 Saturation 96% (92-99) Arterial Blood pH 7.45 (7.35-7.45) Arterial Blood pCO2 at Patient Temp 27mmHg (35-46) Arterial Blood pO2 at Patient Temp 80mmHg (65-108) Arterial Blood HCO3 18mmol/L (21-28) Arterial Blood Base Excess -5mmol/L (-3-3) FiO2 21 Laboratory Tests Test 08/18/16 13:32 08/19/16 04:55 O2 Saturation 96% (92-99) Arterial Blood pH 7.45 (7.35-7.45) Arterial Blood pCO2 at Patient Temp 27mmHg (35-46) Arterial Blood pO2 at Patient Temp 80mmHg (65-108) Arterial Blood HCO3 18mmol/L (21-28) Arterial Blood Base Excess -5mmol/L (-3-3) FiO2 21 White Blood Count 9.1x10^3/uL (4.0-11.0) Red Blood Count 3.51x10^6/uL (4.30-5.70) Hemoglobin 11.9g/dL (13.0-17.5) Hematocrit 33.9% (39.0-53.0) Mean Corpuscular Volume 97fL (79-100) Mean Corpuscular Hemoglobin 34pg (25-35) Mean Corpuscular Hemoglobin Concent 35g/dL (31-37) Red Cell Distribution Width 12.7% (11.5-14.5) Platelet Count 246x10^3/uL (140-400) Neutrophils (%) (Auto) 66% (31-73) Lymphocytes (%) (Auto) 23% (24-48) Monocytes (%) (Auto) 9% (0-9) Eosinophils (%) (Auto) 2% (0-3) Basophils (%) (Auto) 1% (0-3) Neutrophils # (Auto) 6.0x10^3uL (1.8-7.7) Lymphocytes # (Auto) 2.1x10^3/uL (1.0-4.8) Monocytes # (Auto) 0.8x10^3/uL (0.0-1.1) Eosinophils # (Auto) 0.2x10^3/uL (0.0-0.7) Basophils # (Auto) 0.0x10^3/uL (0.0-0.2) Sodium Level 136mmol/L (136-145) Potassium Level 4.3mmol/L (3.5-5.1) Chloride Level 104mmol/L (98-107) Carbon Dioxide Level 22mmol/L (21-32) Anion Gap 10 (6-14) Blood Urea Nitrogen 13mg/dL (8-26) Creatinine 0.8mg/dL (0.7-1.3) Estimated GFR (Cockcroft-Gault) 93.7 Glucose Level 101mg/dL (70-99) Calcium Level 8.2mg/dL (8.5-10.1) Microbiology 08/16/16 Gram Stain - Final, Complete Medications Current Medications Ondansetron HCl (Zofran) 4 mg 1X ONCE IV Last administered on 08/14/16 22:00 ; Start 08/14/16 at 21:30; Stop 08/14/16 at 21:31; Status DC Famotidine (Pepcid) 20 mg 1X ONCE IVP Last administered on 08/14/16 22:01; Start 08/14/16 at 21:30; Stop 08/14/16 at 21:31; Status DC Morphine Sulfate 4 mg 1X ONCE IV Last administered on 08/14/16 22:01; Start 08/14/16 at 21:30; Stop 08/14/16 at 21:31; Status DC Hydralazine HCl (Apresoline) 10 mg 1X ONCE IVP Last administered on 08/14/16 22:00; Start 08/14/16 at 21:30; Stop 08/14/16 at 21:31; Status DC Iohexol (Omnipaque 300 Mg/ml) 75 ml 1X ONCE IV Last administered on 08/14/16 22:25; Start 08/14/16 at 22:15; Stop 08/14/16 at 22:16; Status DC Info (Do NOT chart on this entry -- for MONITORING) 1 each PRN DAILY PRN MC SEE COMMENTS; Start 08/14/16 at 22:15; Stop 08/16/16 at 22:14; Status DC Aspirin (Children'S Aspirin) 324 mg 1X ONCE PO Last administered on 08/15/16 01:06; Start 08/15/16 at 00:15; Stop 08/15/16 at 00:16; Status DC Ondansetron HCl (Zofran) 4 mg PRN Q8HRS PRN IV NAUSEA/VOMITING; Start 08/15/16 at 00:15; Stop 08/15/16 at 13:57; Status DC Morphine Sulfate 4 mg 4 mg PRN Q2HR PRN IV PAIN Last administered on 08/15/16 08:58; Start 08/15/16 at 00:15; Stop 08/16/16 at 00:14; Status DC Sodium Chloride (Iv Sodium Chloride 0.9% 1000ml Bag) 1,000 ml @ 125 mls/hr Q8H IV Last administered on 08/15/16 20:32; Start 08/15/16 at 00:15; Stop at 00:14; Status DC Acetaminophen (Tylenol) 650 mg PRN Q4HRS PRN PO FEVER; Start 08/15/16 at 00:15 ; Stop 08/15/16 at 13:57; Status DC Acetaminophen (Tylenol) 650 mg PRN Q6HRS PRN PO MILD PAIN / TEMP; Start at 11:15 Ondansetron HCl (Zofran) 4 mg PRN Q6HRS PRN IV NAUSEA/VOMITING Last administered on 08/15/16 15:55; Start 08/15/16 at 11:15; Stop 08/16/16 at 19:01 ; Status DC Tramadol HCl (Ultram) 50 mg PRN Q6HRS PRN PO MODERATE - SEVERE PAIN Last administered on 08/15/16 14:36; Start 08/15/16 at 11:15 Morphine Sulfate 2 mg PRN Q2HR PRN IV PAIN; Start 08/15/16 at 11:15; Stop 08/15 at 20:32; Status DC Enoxaparin Sodium (Lovenox 40mg Syringe) 40 mg Q24H SQ Last administered on 14:34; Start 08/15/16 at 16:00; Stop 08/16/16 at 19:00; Status DC Pantoprazole Sodium (Protonix) 40 mg DAILYAC PO Last administered on 08/19/16 07:57; Start 08/15/16 at 15:00 Morphine Sulfate 2 mg PRN Q2HR PRN IV PAIN; Start 08/15/16 at 14:00; Stop 08/16 at 19:00; Status DC Morphine Sulfate 4 mg 1X ONCE IV Last administered on 08/16/16 08:30; Start 08/16/16 at 08:30; Stop 08/16/16 at 08:34; Status DC Morphine Sulfate 4 mg STK-MED ONCE .ROUTE ; Start 08/16/16 at 08:34; Stop at 08:35; Status DC Polyethylene Glycol 17 gm 17 gm DAILY PO Last administered on 08/19/16t 07:57; Start 08/16/16 at 12:00 Piperacillin Sod/ Tazobactam Sod/ Sodium Chloride (Zosyn/Iv Sodium Chloride 0.9 % 50ml) 50 ml @ 100 mls/hr Q6HRS IV Last administered on 08/19/16t 05:11; Start 08/16/16 at 12:15 Lidocaine HCl 100 mg STK-MED ONCE .ROUTE ; Start 08/16/16 at 13:33; Stop at 13:34; Status DC Dexamethasone Sodium Phosphate 20 mg 20 mg STK-MED ONCE .ROUTE ; Start 08/16/16 at 13:33; Stop 08/16/16 at 13:34; Status DC Propofol (Diprivan) 20 ml @ As Directed STK-MED ONCE IV ; Start 08/16/16 at 13: 33; Stop 08/16/16 at 13:34; Status DC Ondansetron HCl (Zofran) 4 mg STK-MED ONCE .ROUTE ; Start 08/16/16 at 13:33; Stop 08/16/16 at 13:34; Status DC Famotidine (Pepcid) 20 mg STK-MED ONCE .ROUTE ; Start 08/16/16 at 13:33; Stop at 13:34; Status DC Fentanyl Citrate (Fentanyl 2ml Vial) 100 mcg STK-MED ONCE .ROUTE ; Start at 13:33; Stop 08/16/16 at 13:34; Status DC Rocuronium [place] (Zemuron) 50 mg STK-MED ONCE .ROUTE ; Start 08/16/16 at 13:33 ; Stop 08/16/16 at 13:34; Status DC Cellulose 1 each STK-MED ONCE .ROUTE ; Start 08/16/16 at 13:37; Stop 08/16/16 at 13:38; Status DC Bupivacaine HCl/ Epinephrine Bitart (Sensorcain-Mpf Epi 0.5%-[id number]) 30 ml STK -MED ONCE .ROUTE Last administered on 08/16/16t 16:51; Start 08/16/16 at 13:38 ; Stop 08/16/16 at 13:39; Status DC Iohexol (Omnipaque 300 Mg/ml) 50 ml STK-MED ONCE .ROUTE Last administered on 16:51; Start 08/16/16 at 13:38; Stop 08/16/16 at 13:39; Status DC Glucagon (Glucagen) 1 mg STK-MED ONCE .ROUTE Last administered on 08/16/16 18: 00; Start 08/16/16 at 13:38; Stop 08/16/16 at 13:39; Status DC Ondansetron HCl (Zofran) 4 mg PRN Q6HRS PRN IV Nausea; Start 08/16/16 at 14:00 ; Stop 08/17/16 at 13:59; Status DC Fentanyl Citrate (Fentanyl 2ml Vial) 25 mcg PRN Q5MIN PRN IV MILD PAIN; Start 08/16/16 at 14:00; Stop 08/17/16 at 13:59; Status DC Fentanyl Citrate (Fentanyl 2ml Vial) 50 mcg PRN Q5MIN PRN IV MODERATE PAIN Last administered on 08/16/16 19:41; Start 08/16/16 at 14:00; Stop 08/17/16 at 13:59; Status DC Morphine Sulfate 1 mg 1 mg PRN Q10MIN PRN IV SEVERE PAIN; Start 08/16/16 at 14: 00; Stop 08/17/16 at 13:59; Status DC Lactated Ringer's (Iv Lactated Ringers) 1,000 ml @ 30 mls/hr Q24H IV Last administered on 08/16/16 14:06; Start 08/16/16 at 13:53; Stop 08/17/16 at 01:52 ; Status DC Lidocaine HCl 2 ml 1X PRN PRN ID IV START; Start 08/16/16 at 14:00; Stop at 13:59; Status DC Hydromorphone HCl (Dilaudid) 0.5 mg PRN Q10MIN PRN IV SEV PAIN,Second choice; Start 08/16/16 at 14:00; Stop 08/17/16 at 13:59; Status DC Prochlorperazine Edisylate 5 mg 5 mg PACU PRN PRN IV NAUSEA Last administered on 08/16/16 18:57; Start 08/16/16 at 14:00; Stop 08/17/16 at 13:59; Status DC Metronidazole (FLAGYL 500Mmg PREMIX) 100 ml @ 100 mls/hr 1X PREOP PRN IV prophylaxis\ Last administered on 08/16/16t 16:47; Start 08/17/16 at 06:00; Stop 08/17/16 at 18:00; Status DC Succinylcholine Chloride 200 mg 200 mg STK-MED ONCE .ROUTE ; Start 08/16/16 at 14:50; Stop 08/16/16 at 14:51; Status DC Metronidazole (FLAGYL 500Mmg PREMIX) 100 ml @ As Directed STK-MED ONCE IV ; Start 08/16/16 at 14:55; Stop 08/16/16 at 14:56; Status DC Phenylephrine HCl 1 mg STK-MED ONCE IV ; Start 08/16/16 at 16:44; Stop 08/16/16 at 16:45; Status DC Fentanyl Citrate (Fentanyl 2ml Vial) 100 mcg STK-MED ONCE .ROUTE ; Start at 16:58; Stop 08/16/16 at 16:59; Status DC Neostigmine Methylsulfate 5 mg STK-MED ONCE .ROUTE ; Start 08/16/16 at 16:59; Stop 08/16/16 at 17:00; Status DC Glycopyrrolate (Robinul) 1 mg STK-MED ONCE .ROUTE ; Start 08/16/16 at 16:59; Stop 08/16/16 at 17:00; Status DC Cellulose 1 each STK-MED ONCE .ROUTE ; Start 08/16/16 at 18:15; Stop 08/16/16 at 18:16; Status DC Fentanyl Citrate (Fentanyl 2ml Vial) 100 mcg STK-MED ONCE .ROUTE ; Start at 18:27; Stop 08/16/16 at 18:28; Status DC Sugammadex Sodium ([place]) 200 mg STK-MED ONCE IVP ; Start 08/16/16 at 18:37; Stop 08/16/16 at 18:38; Status DC Diphenhydramine HCl (Benadryl) 25 mg PRN Q6HRS PRN PO ITCHING; Start 08/16/16 at 19:00 Diphenhydramine HCl (Benadryl) 25 mg PRN Q6HRS PRN IV ITCHING; Start 08/16/16 at 19:00 Enoxaparin Sodium (Lovenox 40mg Syringe) 40 mg Q24H SQ Last administered on 07:59; Start 08/17/16 at 09:00 Sodium Chloride 3 ml 3 ml QSHIFT PRN IV AFTER MEDS AND BLOOD DRAWS; Start 08/16 at 19:00 Potassium Chloride/Sodium Chloride 1,000 ml @ 100 mls/hr Q10H IV Last administered on 08/19/16 00:46; Start 08/16/16 at 18:50 Hydromorphone HCl (Dilaudid Standard [employer]) 30 ml @ 0 mls/hr CONT PRN PRN IV PROTOCOL Last administered on 08/16/16 19:28; Start 08/16/16 at 19:00; Stop at 11:30; Status DC Ondansetron HCl (Zofran) 4 mg PRN Q6HRS PRN IV NAUESA, 1ST CHOICE; Start at 19:00 Lorazepam (Ativan) 1 mg PRN Q6HRS PRN IV ANXIETY / AGITATION; Start 08/16/16 at 20:45 Oxycodone/ Acetaminophen (Percocet 5/325) 1 tab PRN Q4HRS PRN PO PAIN Last administered on 08/18/16 09:56; Start 08/17/16 at 11:30 Bisacodyl (Dulcolax Supp) 10 mg PRN DAILY PRN MA CONSTIPATION Last administered on 08/18/16 18:30; Start 08/18/16 at 18:00 Active Scripts Active Reported [Ranitidine] PO [Flomax] PO [Losartan] PO DAILY [Vitamin] 1 PO DAILY [Aspirin] Mg PO DAILY Vitals/I & O Vital Sign - Last 24 Hours 08/18/16 08/18/16 08/18/16 08/18/16 11:00 15:07 19:00 20:00 Temp 97.6 98.1 97.6 97.6 98.1 97.6 Pulse 55 51 63 Resp 14 18 20 B/P 150/86 145/80 150/92 Pulse Ox 96 95 100 O2 Delivery Nasal Cannula Nasal Cannula Room Air Room Air O2 Flow Rate 2.0 2.0 2.0 08/18/16 08/19/16 08/19/16 23:00 03:00 07:00 Temp 98.4 98.0 95.7 98.4 98.0 95.7 Pulse 51 51 56 Resp 20 20 14 B/P 139/66 142/71 170/89 Pulse Ox 96 95 98 O2 Delivery Room Air Room Air Room Air Intake and Output 08/18/16 08/18/16 08/19/16 15:00 23:00 07:00 Intake Total 180 ml 2840 ml 700 ml Output Total 370 ml 2355 ml Balance 180 ml 2470 ml -1655 ml CATY VO III DO Aug 19, 2016 10:07
[2016-08-19 11:00] VITALS: BP 135/66
--- NOTE | 2016-08-19 11:16 | PDOC ---
PULMONARY PROGRESS NOTES Subjective pt not more soa Vitals Vital Signs Date Time Temp Pulse Resp B/P Pulse Ox O2 Delivery O2 Flow Rate FiO2 08/19/16 11:00 98.1 56 14 135/66 97 Room Air 98.1 08/18/16 20:00 2.0 ROS: No Nausea, No Chest Pain, No Abdominal Pain, No Increase Cough General: Alert Lungs: Clear, Other (no wheezing) Cardiovascular: S1, S2 Abdomen: Soft Neuro Exam: Alert Extremities: No Edema Skin: Warm Labs Laboratory Tests Test 08/18/16 06:35 08/18/16 13:32 08/19/16 04:55 White Blood Count 11.3x10^3/uL (4.0-11.0) 9.1x10^3/uL (4.0-11.0) Red Blood Count 3.24x10^6/uL (4.30-5.70) 3.51x10^6/uL (4.30-5.70) Hemoglobin 11.0g/dL (13.0-17.5) 11.9g/dL (13.0-17.5) Hematocrit 32.2% (39.0-53.0) 33.9% (39.0-53.0) Mean Corpuscular Volume 100fL (79-100) 97fL (79-100) Mean Corpuscular Hemoglobin 34pg (25-35) 34pg (25-35) Mean Corpuscular Hemoglobin Concent 34g/dL (31-37) 35g/dL (31-37) Red Cell Distribution Width 12.5% (11.5-14.5) 12.7% (11.5-14.5) Platelet Count 201x10^3/uL (140-400) 246x10^3/uL (140-400) Neutrophils (%) (Auto) 77% (31-73) 66% (31-73) Lymphocytes (%) (Auto) 16% (24-48) 23% (24-48) Monocytes (%) (Auto) 6% (0-9) 9% (0-9) Eosinophils (%) (Auto) 1% (0-3) 2% (0-3) Basophils (%) (Auto) 0% (0-3) 1% (0-3) Neutrophils # (Auto) 8.6x10^3uL (1.8-7.7) 6.0x10^3uL (1.8-7.7) Lymphocytes # (Auto) 1.8x10^3/uL (1.0-4.8) 2.1x10^3/uL (1.0-4.8) Monocytes # (Auto) 0.7x10^3/uL (0.0-1.1) 0.8x10^3/uL (0.0-1.1) Eosinophils # (Auto) 0.1x10^3/uL (0.0-0.7) 0.2x10^3/uL (0.0-0.7) Basophils # (Auto) 0.0x10^3/uL (0.0-0.2) 0.0x10^3/uL (0.0-0.2) Sodium Level 137mmol/L (136-145) 136mmol/L (136-145) Potassium Level 4.1mmol/L (3.5-5.1) 4.3mmol/L (3.5-5.1) Chloride Level 105mmol/L (98-107) 104mmol/L (98-107) Carbon Dioxide Level 23mmol/L (21-32) 22mmol/L (21-32) Anion Gap 9 (6-14) 10 (6-14) Blood Urea Nitrogen 18mg/dL (8-26) 13mg/dL (8-26) Creatinine 0.9mg/dL (0.7-1.3) 0.8mg/dL (0.7-1.3) Estimated GFR (Cockcroft-Gault) 81.8 93.7 Glucose Level 99mg/dL (70-99) 101mg/dL (70-99) Calcium Level 7.8mg/dL (8.5-10.1) 8.2mg/dL (8.5-10.1) Total Bilirubin 0.6mg/dL (0.2-1.0) Direct Bilirubin 0.2mg/dL (0.0-0.2) Aspartate Amino Transf (AST/SGOT) 38U/L (15-37) Alanine Aminotransferase (ALT/SGPT) 71U/L (16-63) Alkaline Phosphatase 59U/L (46-116) Total Protein 5.5g/dL (6.4-8.2) Albumin 2.4g/dL (3.4-5.0) O2 Saturation 96% (92-99) Arterial Blood pH 7.45 (7.35-7.45) Arterial Blood pCO2 at Patient Temp 27mmHg (35-46) Arterial Blood pO2 at Patient Temp 80mmHg (65-108) Arterial Blood HCO3 18mmol/L (21-28) Arterial Blood Base Excess -5mmol/L (-3-3) FiO2 21 Laboratory Tests Test 08/18/16 13:32 08/19/16 04:55 O2 Saturation 96% (92-99) Arterial Blood pH 7.45 (7.35-7.45) Arterial Blood pCO2 at Patient Temp 27mmHg (35-46) Arterial Blood pO2 at Patient Temp 80mmHg (65-108) Arterial Blood HCO3 18mmol/L (21-28) Arterial Blood Base Excess -5mmol/L (-3-3) FiO2 21 White Blood Count 9.1x10^3/uL (4.0-11.0) Red Blood Count 3.51x10^6/uL (4.30-5.70) Hemoglobin 11.9g/dL (13.0-17.5) Hematocrit 33.9% (39.0-53.0) Mean Corpuscular Volume 97fL (79-100) Mean Corpuscular Hemoglobin 34pg (25-35) Mean Corpuscular Hemoglobin Concent 35g/dL (31-37) Red Cell Distribution Width 12.7% (11.5-14.5) Platelet Count 246x10^3/uL (140-400) Neutrophils (%) (Auto) 66% (31-73) Lymphocytes (%) (Auto) 23% (24-48) Monocytes (%) (Auto) 9% (0-9) Eosinophils (%) (Auto) 2% (0-3) Basophils (%) (Auto) 1% (0-3) Neutrophils # (Auto) 6.0x10^3uL (1.8-7.7) Lymphocytes # (Auto) 2.1x10^3/uL (1.0-4.8) Monocytes # (Auto) 0.8x10^3/uL (0.0-1.1) Eosinophils # (Auto) 0.2x10^3/uL (0.0-0.7) Basophils # (Auto) 0.0x10^3/uL (0.0-0.2) Sodium Level 136mmol/L (136-145) Potassium Level 4.3mmol/L (3.5-5.1) Chloride Level 104mmol/L (98-107) Carbon Dioxide Level 22mmol/L (21-32) Anion Gap 10 (6-14) Blood Urea Nitrogen 13mg/dL (8-26) Creatinine 0.8mg/dL (0.7-1.3) Estimated GFR (Cockcroft-Gault) 93.7 Glucose Level 101mg/dL (70-99) Calcium Level 8.2mg/dL (8.5-10.1) Medications Active Scripts Medications Dose Route/Sig Days Date Category [Ranitidine] PO 08/15/16 Reported [Flomax] PO 08/15/16 Reported [Losartan] PO DAILY 08/15/16 Reported [Vitamin] 1 PO DAILY 08/15/16 Reported [Aspirin] Mg PO DAILY 08/15/16 Reported Impression . 1. Abnormal x-ray compatible with fibrosis. 2. Progressive dyspnea secondary to chronic obstructive pulmonary disease and mild fibrosis. MILD Fibrosis is best visualized on CT abdomen. 3. Status post cholecystectomy. 4. History of heavy alcohol intake. Plan . PLAN: ok to d/c from pulmonary 1. Recommend a 6-minute walk prior to discharge. 2. Outpatient PFTs. 3. Nebulized treatments. JOHANNA GROSS MD Aug 19, 2016 11:16
--- NOTE | 2016-08-19 11:19 | PDOC ---
G I PROGRESS NOTE Reason for Follow-up Increased LFTS S/p joaquin Subjective Feeling better Physical Exam Lungs decreased BS CV S1 S2 ABD +BS, soft, incision intact Review of Relevant I have reviewed the following items nika (where applicable) has been applied. Labs Laboratory Tests Test 08/18/16 06:35 08/18/16 13:32 08/19/16 04:55 White Blood Count 11.3x10^3/uL (4.0-11.0) 9.1x10^3/uL (4.0-11.0) Red Blood Count 3.24x10^6/uL (4.30-5.70) 3.51x10^6/uL (4.30-5.70) Hemoglobin 11.0g/dL (13.0-17.5) 11.9g/dL (13.0-17.5) Hematocrit 32.2% (39.0-53.0) 33.9% (39.0-53.0) Mean Corpuscular Volume 100fL (79-100) 97fL (79-100) Mean Corpuscular Hemoglobin 34pg (25-35) 34pg (25-35) Mean Corpuscular Hemoglobin Concent 34g/dL (31-37) 35g/dL (31-37) Red Cell Distribution Width 12.5% (11.5-14.5) 12.7% (11.5-14.5) Platelet Count 201x10^3/uL (140-400) 246x10^3/uL (140-400) Neutrophils (%) (Auto) 77% (31-73) 66% (31-73) Lymphocytes (%) (Auto) 16% (24-48) 23% (24-48) Monocytes (%) (Auto) 6% (0-9) 9% (0-9) Eosinophils (%) (Auto) 1% (0-3) 2% (0-3) Basophils (%) (Auto) 0% (0-3) 1% (0-3) Neutrophils # (Auto) 8.6x10^3uL (1.8-7.7) 6.0x10^3uL (1.8-7.7) Lymphocytes # (Auto) 1.8x10^3/uL (1.0-4.8) 2.1x10^3/uL (1.0-4.8) Monocytes # (Auto) 0.7x10^3/uL (0.0-1.1) 0.8x10^3/uL (0.0-1.1) Eosinophils # (Auto) 0.1x10^3/uL (0.0-0.7) 0.2x10^3/uL (0.0-0.7) Basophils # (Auto) 0.0x10^3/uL (0.0-0.2) 0.0x10^3/uL (0.0-0.2) Sodium Level 137mmol/L (136-145) 136mmol/L (136-145) Potassium Level 4.1mmol/L (3.5-5.1) 4.3mmol/L (3.5-5.1) Chloride Level 105mmol/L (98-107) 104mmol/L (98-107) Carbon Dioxide Level 23mmol/L (21-32) 22mmol/L (21-32) Anion Gap 9 (6-14) 10 (6-14) Blood Urea Nitrogen 18mg/dL (8-26) 13mg/dL (8-26) Creatinine 0.9mg/dL (0.7-1.3) 0.8mg/dL (0.7-1.3) Estimated GFR (Cockcroft-Gault) 81.8 93.7 Glucose Level 99mg/dL (70-99) 101mg/dL (70-99) Calcium Level 7.8mg/dL (8.5-10.1) 8.2mg/dL (8.5-10.1) Total Bilirubin 0.6mg/dL (0.2-1.0) Direct Bilirubin 0.2mg/dL (0.0-0.2) Aspartate Amino Transf (AST/SGOT) 38U/L (15-37) Alanine Aminotransferase (ALT/SGPT) 71U/L (16-63) Alkaline Phosphatase 59U/L (46-116) Total Protein 5.5g/dL (6.4-8.2) Albumin 2.4g/dL (3.4-5.0) O2 Saturation 96% (92-99) Arterial Blood pH 7.45 (7.35-7.45) Arterial Blood pCO2 at Patient Temp 27mmHg (35-46) Arterial Blood pO2 at Patient Temp 80mmHg (65-108) Arterial Blood HCO3 18mmol/L (21-28) Arterial Blood Base Excess -5mmol/L (-3-3) FiO2 21 Laboratory Tests Test 08/18/16 13:32 08/19/16 04:55 O2 Saturation 96% (92-99) Arterial Blood pH 7.45 (7.35-7.45) Arterial Blood pCO2 at Patient Temp 27mmHg (35-46) Arterial Blood pO2 at Patient Temp 80mmHg (65-108) Arterial Blood HCO3 18mmol/L (21-28) Arterial Blood Base Excess -5mmol/L (-3-3) FiO2 21 White Blood Count 9.1x10^3/uL (4.0-11.0) Red Blood Count 3.51x10^6/uL (4.30-5.70) Hemoglobin 11.9g/dL (13.0-17.5) Hematocrit 33.9% (39.0-53.0) Mean Corpuscular Volume 97fL (79-100) Mean Corpuscular Hemoglobin 34pg (25-35) Mean Corpuscular Hemoglobin Concent 35g/dL (31-37) Red Cell Distribution Width 12.7% (11.5-14.5) Platelet Count 246x10^3/uL (140-400) Neutrophils (%) (Auto) 66% (31-73) Lymphocytes (%) (Auto) 23% (24-48) Monocytes (%) (Auto) 9% (0-9) Eosinophils (%) (Auto) 2% (0-3) Basophils (%) (Auto) 1% (0-3) Neutrophils # (Auto) 6.0x10^3uL (1.8-7.7) Lymphocytes # (Auto) 2.1x10^3/uL (1.0-4.8) Monocytes # (Auto) 0.8x10^3/uL (0.0-1.1) Eosinophils # (Auto) 0.2x10^3/uL (0.0-0.7) Basophils # (Auto) 0.0x10^3/uL (0.0-0.2) Sodium Level 136mmol/L (136-145) Potassium Level 4.3mmol/L (3.5-5.1) Chloride Level 104mmol/L (98-107) Carbon Dioxide Level 22mmol/L (21-32) Anion Gap 10 (6-14) Blood Urea Nitrogen 13mg/dL (8-26) Creatinine 0.8mg/dL (0.7-1.3) Estimated GFR (Cockcroft-Gault) 93.7 Glucose Level 101mg/dL (70-99) Calcium Level 8.2mg/dL (8.5-10.1) Microbiology 08/16/16 Gram Stain - Final, Complete Medications Current Medications Ondansetron HCl (Zofran) 4 mg 1X ONCE IV Last administered on 08/14/16 22:00 ; Start 08/14/16 at 21:30; Stop 08/14/16 at 21:31; Status DC Famotidine (Pepcid) 20 mg 1X ONCE IVP Last administered on 08/14/16 22:01; Start 08/14/16 at 21:30; Stop 08/14/16 at 21:31; Status DC Morphine Sulfate 4 mg 1X ONCE IV Last administered on 08/14/16 22:01; Start 08/14/16 at 21:30; Stop 08/14/16 at 21:31; Status DC Hydralazine HCl (Apresoline) 10 mg 1X ONCE IVP Last administered on 08/14/16 22:00; Start 08/14/16 at 21:30; Stop 08/14/16 at 21:31; Status DC Iohexol (Omnipaque 300 Mg/ml) 75 ml 1X ONCE IV Last administered on 08/14/16 22:25; Start 08/14/16 at 22:15; Stop 08/14/16 at 22:16; Status DC Info (Do NOT chart on this entry -- for MONITORING) 1 each PRN DAILY PRN MC SEE COMMENTS; Start 08/14/16 at 22:15; Stop 08/16/16 at 22:14; Status DC Aspirin (Children'S Aspirin) 324 mg 1X ONCE PO Last administered on 08/15/16 01:06; Start 08/15/16 at 00:15; Stop 08/15/16 at 00:16; Status DC Ondansetron HCl (Zofran) 4 mg PRN Q8HRS PRN IV NAUSEA/VOMITING; Start 08/15/16 at 00:15; Stop 08/15/16 at 13:57; Status DC Morphine Sulfate 4 mg 4 mg PRN Q2HR PRN IV PAIN Last administered on 08/15/16 08:58; Start 08/15/16 at 00:15; Stop 08/16/16 at 00:14; Status DC Sodium Chloride (Iv Sodium Chloride 0.9% 1000ml Bag) 1,000 ml @ 125 mls/hr Q8H IV Last administered on 08/15/16 20:32; Start 08/15/16 at 00:15; Stop at 00:14; Status DC Acetaminophen (Tylenol) 650 mg PRN Q4HRS PRN PO FEVER; Start 08/15/16 at 00:15 ; Stop 08/15/16 at 13:57; Status DC Acetaminophen (Tylenol) 650 mg PRN Q6HRS PRN PO MILD PAIN / TEMP; Start at 11:15 Ondansetron HCl (Zofran) 4 mg PRN Q6HRS PRN IV NAUSEA/VOMITING Last administered on 08/15/16 15:55; Start 08/15/16 at 11:15; Stop 08/16/16 at 19:01 ; Status DC Tramadol HCl (Ultram) 50 mg PRN Q6HRS PRN PO MODERATE - SEVERE PAIN Last administered on 08/15/16 14:36; Start 08/15/16 at 11:15 Morphine Sulfate 2 mg PRN Q2HR PRN IV PAIN; Start 08/15/16 at 11:15; Stop 08/15 at 20:32; Status DC Enoxaparin Sodium (Lovenox 40mg Syringe) 40 mg Q24H SQ Last administered on 14:34; Start 08/15/16 at 16:00; Stop 08/16/16 at 19:00; Status DC Pantoprazole Sodium (Protonix) 40 mg DAILYAC PO Last administered on 08/19/16 07:57; Start 08/15/16 at 15:00 Morphine Sulfate 2 mg PRN Q2HR PRN IV PAIN; Start 08/15/16 at 14:00; Stop 08/16 at 19:00; Status DC Morphine Sulfate 4 mg 1X ONCE IV Last administered on 08/16/16t 08:30; Start 08/16/16 at 08:30; Stop 08/16/16 at 08:34; Status DC Morphine Sulfate 4 mg STK-MED ONCE .ROUTE ; Start 08/16/16 at 08:34; Stop at 08:35; Status DC Polyethylene Glycol 17 gm 17 gm DAILY PO Last administered on 08/19/16t 07:57; Start 08/16/16 at 12:00 Piperacillin Sod/ Tazobactam Sod/ Sodium Chloride (Zosyn/Iv Sodium Chloride 0.9 % 50ml) 50 ml @ 100 mls/hr Q6HRS IV Last administered on 08/19/16t 05:11; Start 08/16/16 at 12:15 Lidocaine HCl 100 mg STK-MED ONCE .ROUTE ; Start 08/16/16 at 13:33; Stop at 13:34; Status DC Dexamethasone Sodium Phosphate 20 mg 20 mg STK-MED ONCE .ROUTE ; Start 08/16/16 at 13:33; Stop 08/16/16 at 13:34; Status DC Propofol (Diprivan) 20 ml @ As Directed STK-MED ONCE IV ; Start 08/16/16 at 13: 33; Stop 08/16/16 at 13:34; Status DC Ondansetron HCl (Zofran) 4 mg STK-MED ONCE .ROUTE ; Start 08/16/16 at 13:33; Stop 08/16/16 at 13:34; Status DC Famotidine (Pepcid) 20 mg STK-MED ONCE .ROUTE ; Start 08/16/16 at 13:33; Stop at 13:34; Status DC Fentanyl Citrate (Fentanyl 2ml Vial) 100 mcg STK-MED ONCE .ROUTE ; Start at 13:33; Stop 08/16/16 at 13:34; Status DC Rocuronium [place] (Zemuron) 50 mg STK-MED ONCE .ROUTE ; Start 08/16/16 at 13:33 ; Stop 08/16/16 at 13:34; Status DC Cellulose 1 each STK-MED ONCE .ROUTE ; Start 08/16/16 at 13:37; Stop 08/16/16 at 13:38; Status DC Bupivacaine HCl/ Epinephrine Bitart (Sensorcain-Mpf Epi 0.5%-[id number]) 30 ml STK -MED ONCE .ROUTE Last administered on 08/16/16 16:51; Start 08/16/16 at 13:38 ; Stop 08/16/16 at 13:39; Status DC Iohexol (Omnipaque 300 Mg/ml) 50 ml STK-MED ONCE .ROUTE Last administered on 16:51; Start 08/16/16 at 13:38; Stop 08/16/16 at 13:39; Status DC Glucagon (Glucagen) 1 mg STK-MED ONCE .ROUTE Last administered on 08/16/16 18: 00; Start 08/16/16 at 13:38; Stop 08/16/16 at 13:39; Status DC Ondansetron HCl (Zofran) 4 mg PRN Q6HRS PRN IV Nausea; Start 08/16/16 at 14:00 ; Stop 08/17/16 at 13:59; Status DC Fentanyl Citrate (Fentanyl 2ml Vial) 25 mcg PRN Q5MIN PRN IV MILD PAIN; Start 08/16/16 at 14:00; Stop 08/17/16 at 13:59; Status DC Fentanyl Citrate (Fentanyl 2ml Vial) 50 mcg PRN Q5MIN PRN IV MODERATE PAIN Last administered on 08/16/16 19:41; Start 08/16/16 at 14:00; Stop 08/17/16 at 13:59; Status DC Morphine Sulfate 1 mg 1 mg PRN Q10MIN PRN IV SEVERE PAIN; Start 08/16/16 at 14: 00; Stop 08/17/16 at 13:59; Status DC Lactated Ringer's (Iv Lactated Ringers) 1,000 ml @ 30 mls/hr Q24H IV Last administered on 08/16/16 14:06; Start 08/16/16 at 13:53; Stop 08/17/16 at 01:52 ; Status DC Lidocaine HCl 2 ml 1X PRN PRN ID IV START; Start 08/16/16 at 14:00; Stop at 13:59; Status DC Hydromorphone HCl (Dilaudid) 0.5 mg PRN Q10MIN PRN IV SEV PAIN,Second choice; Start 08/16/16 at 14:00; Stop 08/17/16 at 13:59; Status DC Prochlorperazine Edisylate 5 mg 5 mg PACU PRN PRN IV NAUSEA Last administered on 08/16/16t 18:57; Start 08/16/16 at 14:00; Stop 08/17/16 at 13:59; Status DC Metronidazole (FLAGYL 500Mmg PREMIX) 100 ml @ 100 mls/hr 1X PREOP PRN IV prophylaxis\ Last administered on 08/16/16t 16:47; Start 08/17/16 at 06:00; Stop 08/17/16 at 18:00; Status DC Succinylcholine Chloride 200 mg 200 mg STK-MED ONCE .ROUTE ; Start 08/16/16 at 14:50; Stop 08/16/16 at 14:51; Status DC Metronidazole (FLAGYL 500Mmg PREMIX) 100 ml @ As Directed STK-MED ONCE IV ; Start 08/16/16 at 14:55; Stop 08/16/16 at 14:56; Status DC Phenylephrine HCl 1 mg STK-MED ONCE IV ; Start 08/16/16 at 16:44; Stop 08/16/16 at 16:45; Status DC Fentanyl Citrate (Fentanyl 2ml Vial) 100 mcg STK-MED ONCE .ROUTE ; Start at 16:58; Stop 08/16/16 at 16:59; Status DC Neostigmine Methylsulfate 5 mg STK-MED ONCE .ROUTE ; Start 08/16/16 at 16:59; Stop 08/16/16 at 17:00; Status DC Glycopyrrolate (Robinul) 1 mg STK-MED ONCE .ROUTE ; Start 08/16/16 at 16:59; Stop 08/16/16 at 17:00; Status DC Cellulose 1 each STK-MED ONCE .ROUTE ; Start 08/16/16 at 18:15; Stop 08/16/16 at 18:16; Status DC Fentanyl Citrate (Fentanyl 2ml Vial) 100 mcg STK-MED ONCE .ROUTE ; Start at 18:27; Stop 08/16/16 at 18:28; Status DC Sugammadex Sodium (Bridion) 200 mg STK-MED ONCE IVP ; Start 08/16/16 at 18:37; Stop 08/16/16 at 18:38; Status DC Diphenhydramine HCl (Benadryl) 25 mg PRN Q6HRS PRN PO ITCHING; Start 08/16/16 at 19:00 Diphenhydramine HCl (Benadryl) 25 mg PRN Q6HRS PRN IV ITCHING; Start 08/16/16 at 19:00 Enoxaparin Sodium (Lovenox 40mg Syringe) 40 mg Q24H SQ Last administered on 07:59; Start 08/17/16 at 09:00 Sodium Chloride 3 ml 3 ml QSHIFT PRN IV AFTER MEDS AND BLOOD DRAWS; Start 08/16 at 19:00 Potassium Chloride/Sodium Chloride 1,000 ml @ 100 mls/hr Q10H IV Last administered on 08/19/16 00:46; Start 08/16/16 at 18:50 Hydromorphone HCl (Dilaudid Standard [employer]) 30 ml @ 0 mls/hr CONT PRN PRN IV PROTOCOL Last administered on 08/16/16 19:28; Start 08/16/16 at 19:00; Stop at 11:30; Status DC Ondansetron HCl (Zofran) 4 mg PRN Q6HRS PRN IV NAUESA, 1ST CHOICE; Start at 19:00 Lorazepam (Ativan) 1 mg PRN Q6HRS PRN IV ANXIETY / AGITATION; Start 08/16/16 at 20:45 Oxycodone/ Acetaminophen (Percocet 5/325) 1 tab PRN Q4HRS PRN PO PAIN Last administered on 08/18/16 09:56; Start 08/17/16 at 11:30 Bisacodyl (Dulcolax Supp) 10 mg PRN DAILY PRN TX CONSTIPATION Last administered on 08/18/16 18:30; Start 08/18/16 at 18:00 Active Scripts Active Reported [Ranitidine] PO [Flomax] PO [Losartan] PO DAILY [Vitamin] 1 PO DAILY [Aspirin] Mg PO DAILY Vitals/I & O Vital Sign - Last 24 Hours 08/18/16 08/18/16 08/18/16 08/18/16 15:07 19:00 20:00 23:00 Temp 98.1 97.6 98.4 98.1 97.6 98.4 Pulse 51 63 51 Resp 18 20 20 B/P 145/80 150/92 139/66 Pulse Ox 95 100 96 O2 Delivery Nasal Cannula Room Air Room Air Room Air O2 Flow Rate 2.0 2.0 08/19/16 08/19/16 08/19/16 08/19/16 03:00 07:00 08:15 11:00 Temp 98.0 95.7 98.1 98.0 95.7 98.1 Pulse 51 56 56 Resp 20 14 14 B/P 142/71 170/89 135/66 Pulse Ox 95 98 97 O2 Delivery Room Air Room Air Room Air Room Air Intake and Output 08/18/16 08/18/16 08/19/16 15:00 23:00 07:00 Intake Total 180 ml 2840 ml 700 ml Output Total 370 ml 2355 ml Balance 180 ml 2470 ml -1655 ml Problem List Problems Medical Problems: (1) Abdominal pain Status: Acute (2) Chest pain Status: Acute (3) Cholelithiasis with acute cholecystitis with biliary obstruction Status: Acute Assessment S/P joaquin- with symptomatic cholelithiasis, LFTS trending down tolerating PO, disposition plans per primary PROPANA GUAMAN MD Aug 19, 2016 11:19
[2016-08-19 14:56] VITALS: BP 152/84
[2016-08-19 19:00] VITALS: BP 152/82
[2016-08-19 23:00] VITALS: BP 140/80
[2016-08-20 03:00] VITALS: BP 121/67
[2016-08-20 04:34] LABS: BASO # 0.1 x10^3/uL (0.0-0.2); BASO % 1 % (0-3); EOS % 3 % (0-3); HEMATOCRIT 36.6 % (39.0-53.0); HEMOGLOBIN 12.6 g/dL (13.0-17.5); LYMPH # 2.5 x10^3/uL (1.0-4.8); LYMPH % 29 % (24-48); MEAN CORPUSCULAR HEMOGLOBIN 34 pg (25-35); MEAN CORPUSCULAR HGB CONC 35 g/dL (31-37); MEAN CORPUSCULAR VOLUME 99 fL (79-100); MONO % 9 % (0-9); NEUT % 59 % (31-73); PLATELET COUNT 282 x10^3/uL (140-400); RED BLOOD COUNT 3.69 x10^6/uL (4.30-5.70); RED CELL DISTRIBUTION WIDTH 12.6 % (11.5-14.5); WHITE BLOOD COUNT 8.9 x10^3/uL (4.0-11.0)
[2016-08-20] MEDS: POTASSIUM CL 20MEQ-0.45% NACL 1,000 ML IV SCH (04:48)
[2016-08-20 05:01] LABS: CALCIUM 8.6 mg/dL (8.5-10.1); CREATININE 0.7 mg/dL (0.7-1.3); GFR 109.4; POTASSIUM 4.6 mmol/L (3.5-5.1)
[2016-08-20] MEDS: PIPERACILLIN/TAZOBACTAM 3.375 GM in IV NORMAL SALINE 50ML 50 ML IV SCH ×3 (05:56)
[2016-08-20 07:00] VITALS: BP 135/79
[2016-08-20] MEDS: PANTOPRAZOLE 40 MG TABLET. PO SCH (08:10)
[2016-08-20] MEDS: POLYETHYLENE GLYCOL 3350 17 GM PACKET. PO SCH (08:10)
[2016-08-20] MEDS: ENOXAPARIN 40 MG/0.4 ML DISP.SYRIN. SQ SCH (08:11)
--- NOTE | 2016-08-20 09:46 | PDOC ---
ARMANDO MCGEE MAORI PHYSIOTHERAPIST 08/20/16 0946: SURGICAL PROGRESS NOTE Subjective ready to go home feeling well Vital Signs Vital Signs Date Time Temp Pulse Resp B/P Pulse Ox O2 Delivery O2 Flow Rate FiO2 08/20/16 07:00 97.8 51 14 135/79 95 Room Air 97.8 I&O Intake and Output 08/20/16 07:00 Intake Total 540 ml Output Total 3920 ml Balance -3380 ml Intake Oral 540 ml Output Urine Total 3850 ml Drainage Total 70 ml General: Alert, Oriented X3, Cooperative, No acute distress Abdomen: Soft, Other (dressing clean and dry, sylwia serosang ) Labs Laboratory Tests Test 08/18/16 13:32 08/19/16 04:55 08/20/16 04:00 O2 Saturation 96% (92-99) Arterial Blood pH 7.45 (7.35-7.45) Arterial Blood pCO2 at Patient Temp 27mmHg (35-46) Arterial Blood pO2 at Patient Temp 80mmHg (65-108) Arterial Blood HCO3 18mmol/L (21-28) Arterial Blood Base Excess -5mmol/L (-3-3) FiO2 21 White Blood Count 9.1x10^3/uL (4.0-11.0) 8.9x10^3/uL (4.0-11.0) Red Blood Count 3.51x10^6/uL (4.30-5.70) 3.69x10^6/uL (4.30-5.70) Hemoglobin 11.9g/dL (13.0-17.5) 12.6g/dL (13.0-17.5) Hematocrit 33.9% (39.0-53.0) 36.6% (39.0-53.0) Mean Corpuscular Volume 97fL (79-100) 99fL (79-100) Mean Corpuscular Hemoglobin 34pg (25-35) 34pg (25-35) Mean Corpuscular Hemoglobin Concent 35g/dL (31-37) 35g/dL (31-37) Red Cell Distribution Width 12.7% (11.5-14.5) 12.6% (11.5-14.5) Platelet Count 246x10^3/uL (140-400) 282x10^3/uL (140-400) Neutrophils (%) (Auto) 66% (31-73) 59% (31-73) Lymphocytes (%) (Auto) 23% (24-48) 29% (24-48) Monocytes (%) (Auto) 9% (0-9) 9% (0-9) Eosinophils (%) (Auto) 2% (0-3) 3% (0-3) Basophils (%) (Auto) 1% (0-3) 1% (0-3) Neutrophils # (Auto) 6.0x10^3uL (1.8-7.7) 5.2x10^3uL (1.8-7.7) Lymphocytes # (Auto) 2.1x10^3/uL (1.0-4.8) 2.5x10^3/uL (1.0-4.8) Monocytes # (Auto) 0.8x10^3/uL (0.0-1.1) 0.8x10^3/uL (0.0-1.1) Eosinophils # (Auto) 0.2x10^3/uL (0.0-0.7) 0.2x10^3/uL (0.0-0.7) Basophils # (Auto) 0.0x10^3/uL (0.0-0.2) 0.1x10^3/uL (0.0-0.2) Sodium Level 136mmol/L (136-145) 137mmol/L (136-145) Potassium Level 4.3mmol/L (3.5-5.1) 4.6mmol/L (3.5-5.1) Chloride Level 104mmol/L (98-107) 103mmol/L (98-107) Carbon Dioxide Level 22mmol/L (21-32) 21mmol/L (21-32) Anion Gap 10 (6-14) 13 (6-14) Blood Urea Nitrogen 13mg/dL (8-26) 15mg/dL (8-26) Creatinine 0.8mg/dL (0.7-1.3) 0.7mg/dL (0.7-1.3) Estimated GFR (Cockcroft-Gault) 93.7 109.4 Glucose Level 101mg/dL (70-99) 110mg/dL (70-99) Calcium Level 8.2mg/dL (8.5-10.1) 8.6mg/dL (8.5-10.1) Laboratory Tests Test 08/20/16 04:00 White Blood Count 8.9x10^3/uL (4.0-11.0) Red Blood Count 3.69x10^6/uL (4.30-5.70) Hemoglobin 12.6g/dL (13.0-17.5) Hematocrit 36.6% (39.0-53.0) Mean Corpuscular Volume 99fL (79-100) Mean Corpuscular Hemoglobin 34pg (25-35) Mean Corpuscular Hemoglobin Concent 35g/dL (31-37) Red Cell Distribution Width 12.6% (11.5-14.5) Platelet Count 282x10^3/uL (140-400) Neutrophils (%) (Auto) 59% (31-73) Lymphocytes (%) (Auto) 29% (24-48) Monocytes (%) (Auto) 9% (0-9) Eosinophils (%) (Auto) 3% (0-3) Basophils (%) (Auto) 1% (0-3) Neutrophils # (Auto) 5.2x10^3uL (1.8-7.7) Lymphocytes # (Auto) 2.5x10^3/uL (1.0-4.8) Monocytes # (Auto) 0.8x10^3/uL (0.0-1.1) Eosinophils # (Auto) 0.2x10^3/uL (0.0-0.7) Basophils # (Auto) 0.1x10^3/uL (0.0-0.2) Sodium Level 137mmol/L (136-145) Potassium Level 4.6mmol/L (3.5-5.1) Chloride Level 103mmol/L (98-107) Carbon Dioxide Level 21mmol/L (21-32) Anion Gap 13 (6-14) Blood Urea Nitrogen 15mg/dL (8-26) Creatinine 0.7mg/dL (0.7-1.3) Estimated GFR (Cockcroft-Gault) 109.4 Glucose Level 110mg/dL (70-99) Calcium Level 8.6mg/dL (8.5-10.1) Problem List Problems Medical Problems: (1) Abdominal pain Status: Acute (2) Chest pain Status: Acute (3) Cholelithiasis with acute cholecystitis with biliary obstruction Status: Acute Assessment/Plan s/p open joaquin drain output less ok to dc drain prior to discharge FU in clinic next week Problems: NIMA MURO MD 08/20/16 1325: SURGICAL PROGRESS NOTE Assessment/Plan as above home today Problems: ARMANDO MCGEE APRN Aug 20, 2016 09:46 NIMA MURO MD Aug 20, 2016 13:25
[2016-08-20 10:42] VITALS: BP 145/85
--- NOTE | 2016-08-20 10:44 | PDOC ---
PULMONARY PROGRESS NOTES Subjective pt not more soa, no cough, has nasal congestion Vitals Vital Signs Date Time Temp Pulse Resp B/P Pulse Ox O2 Delivery O2 Flow Rate FiO2 08/20/16 07:00 97.8 51 14 135/79 95 Room Air 97.8 Comments ros as mentioned as above other sys otherwise neg ROS: No Nausea, No Chest Pain, No Abdominal Pain, No Increase Cough General: Alert Lungs: Clear, Other (no wheezing) Cardiovascular: S1, S2 Abdomen: Soft, Non-tender Neuro Exam: Alert Extremities: No Edema Skin: Warm Labs Laboratory Tests Test 08/18/16 13:32 08/19/16 04:55 08/20/16 04:00 O2 Saturation 96% (92-99) Arterial Blood pH 7.45 (7.35-7.45) Arterial Blood pCO2 at Patient Temp 27mmHg (35-46) Arterial Blood pO2 at Patient Temp 80mmHg (65-108) Arterial Blood HCO3 18mmol/L (21-28) Arterial Blood Base Excess -5mmol/L (-3-3) FiO2 21 White Blood Count 9.1x10^3/uL (4.0-11.0) 8.9x10^3/uL (4.0-11.0) Red Blood Count 3.51x10^6/uL (4.30-5.70) 3.69x10^6/uL (4.30-5.70) Hemoglobin 11.9g/dL (13.0-17.5) 12.6g/dL (13.0-17.5) Hematocrit 33.9% (39.0-53.0) 36.6% (39.0-53.0) Mean Corpuscular Volume 97fL (79-100) 99fL (79-100) Mean Corpuscular Hemoglobin 34pg (25-35) 34pg (25-35) Mean Corpuscular Hemoglobin Concent 35g/dL (31-37) 35g/dL (31-37) Red Cell Distribution Width 12.7% (11.5-14.5) 12.6% (11.5-14.5) Platelet Count 246x10^3/uL (140-400) 282x10^3/uL (140-400) Neutrophils (%) (Auto) 66% (31-73) 59% (31-73) Lymphocytes (%) (Auto) 23% (24-48) 29% (24-48) Monocytes (%) (Auto) 9% (0-9) 9% (0-9) Eosinophils (%) (Auto) 2% (0-3) 3% (0-3) Basophils (%) (Auto) 1% (0-3) 1% (0-3) Neutrophils # (Auto) 6.0x10^3uL (1.8-7.7) 5.2x10^3uL (1.8-7.7) Lymphocytes # (Auto) 2.1x10^3/uL (1.0-4.8) 2.5x10^3/uL (1.0-4.8) Monocytes # (Auto) 0.8x10^3/uL (0.0-1.1) 0.8x10^3/uL (0.0-1.1) Eosinophils # (Auto) 0.2x10^3/uL (0.0-0.7) 0.2x10^3/uL (0.0-0.7) Basophils # (Auto) 0.0x10^3/uL (0.0-0.2) 0.1x10^3/uL (0.0-0.2) Sodium Level 136mmol/L (136-145) 137mmol/L (136-145) Potassium Level 4.3mmol/L (3.5-5.1) 4.6mmol/L (3.5-5.1) Chloride Level 104mmol/L (98-107) 103mmol/L (98-107) Carbon Dioxide Level 22mmol/L (21-32) 21mmol/L (21-32) Anion Gap 10 (6-14) 13 (6-14) Blood Urea Nitrogen 13mg/dL (8-26) 15mg/dL (8-26) Creatinine 0.8mg/dL (0.7-1.3) 0.7mg/dL (0.7-1.3) Estimated GFR (Cockcroft-Gault) 93.7 109.4 Glucose Level 101mg/dL (70-99) 110mg/dL (70-99) Calcium Level 8.2mg/dL (8.5-10.1) 8.6mg/dL (8.5-10.1) Laboratory Tests Test 08/20/16 04:00 White Blood Count 8.9x10^3/uL (4.0-11.0) Red Blood Count 3.69x10^6/uL (4.30-5.70) Hemoglobin 12.6g/dL (13.0-17.5) Hematocrit 36.6% (39.0-53.0) Mean Corpuscular Volume 99fL (79-100) Mean Corpuscular Hemoglobin 34pg (25-35) Mean Corpuscular Hemoglobin Concent 35g/dL (31-37) Red Cell Distribution Width 12.6% (11.5-14.5) Platelet Count 282x10^3/uL (140-400) Neutrophils (%) (Auto) 59% (31-73) Lymphocytes (%) (Auto) 29% (24-48) Monocytes (%) (Auto) 9% (0-9) Eosinophils (%) (Auto) 3% (0-3) Basophils (%) (Auto) 1% (0-3) Neutrophils # (Auto) 5.2x10^3uL (1.8-7.7) Lymphocytes # (Auto) 2.5x10^3/uL (1.0-4.8) Monocytes # (Auto) 0.8x10^3/uL (0.0-1.1) Eosinophils # (Auto) 0.2x10^3/uL (0.0-0.7) Basophils # (Auto) 0.1x10^3/uL (0.0-0.2) Sodium Level 137mmol/L (136-145) Potassium Level 4.6mmol/L (3.5-5.1) Chloride Level 103mmol/L (98-107) Carbon Dioxide Level 21mmol/L (21-32) Anion Gap 13 (6-14) Blood Urea Nitrogen 15mg/dL (8-26) Creatinine 0.7mg/dL (0.7-1.3) Estimated GFR (Cockcroft-Gault) 109.4 Glucose Level 110mg/dL (70-99) Calcium Level 8.6mg/dL (8.5-10.1) Medications Active Scripts Medications Dose Route/Sig Days Date Category [Ranitidine] PO 08/15/16 Reported [Flomax] PO 08/15/16 Reported [Losartan] PO DAILY 08/15/16 Reported [Vitamin] 1 PO DAILY 08/15/16 Reported [Aspirin] Mg PO DAILY 08/15/16 Reported Comments cxr reviewed. Mild bibasilar scarring and/or atelectasis. Impression . 1. Abnormal x-ray compatible with fibrosis. 2. Progressive dyspnea secondary to chronic obstructive pulmonary disease and mild fibrosis. MILD Fibrosis is best visualized on CT abdomen. 3. Status post cholecystectomy. 4. History of heavy alcohol intake. Plan . PLAN: ok to d/c from pulmonary 1. Recommend a 6-minute walk prior to discharge. 2. Outpatient PFTs. lawrence edward 3. Nebulized treatments. PIA SPENCER MD Aug 20, 2016 10:43
--- NOTE | 2016-08-20 10:50 | PDOC ---
PROGRESS NOTES Chief Complaint Chief Complaint - abdominal pain, POD #4 laparoscopic converted to open cholecystectomy - cholelithiasis on CT - GERD - HTN - Obesity - Alcoholism History of Present Illness History of Present Illness No acute events overnight. Patient denies any complaints this morning. He is seen walking the hallways with respiratory therapy. He was maintaining oxygen saturations of 97-98% during his walk. He is tolerating his diet. Vitals Vitals Vital Signs Date Time Temp Pulse Resp B/P Pulse Ox O2 Delivery O2 Flow Rate FiO2 08/20/16 10:42 97.7 60 14 145/85 97 Room Air 97.7 Physical Exam General: Alert, Oriented X3, Cooperative, No acute distress Heart: Regular rate, Normal S1, Normal S2 Lungs: Clear Abdomen: Soft, Other (dressing clean and dry, sylwia serosang ) Extremities: No cyanosis, No edema Skin: No rashes, No breakdown Labs LABS Laboratory Tests Test 08/20/16 04:00 White Blood Count 8.9x10^3/uL (4.0-11.0) Red Blood Count 3.69x10^6/uL (4.30-5.70) Hemoglobin 12.6g/dL (13.0-17.5) Hematocrit 36.6% (39.0-53.0) Mean Corpuscular Volume 99fL (79-100) Mean Corpuscular Hemoglobin 34pg (25-35) Mean Corpuscular Hemoglobin Concent 35g/dL (31-37) Red Cell Distribution Width 12.6% (11.5-14.5) Platelet Count 282x10^3/uL (140-400) Neutrophils (%) (Auto) 59% (31-73) Lymphocytes (%) (Auto) 29% (24-48) Monocytes (%) (Auto) 9% (0-9) Eosinophils (%) (Auto) 3% (0-3) Basophils (%) (Auto) 1% (0-3) Neutrophils # (Auto) 5.2x10^3uL (1.8-7.7) Lymphocytes # (Auto) 2.5x10^3/uL (1.0-4.8) Monocytes # (Auto) 0.8x10^3/uL (0.0-1.1) Eosinophils # (Auto) 0.2x10^3/uL (0.0-0.7) Basophils # (Auto) 0.1x10^3/uL (0.0-0.2) Sodium Level 137mmol/L (136-145) Potassium Level 4.6mmol/L (3.5-5.1) Chloride Level 103mmol/L (98-107) Carbon Dioxide Level 21mmol/L (21-32) Anion Gap 13 (6-14) Blood Urea Nitrogen 15mg/dL (8-26) Creatinine 0.7mg/dL (0.7-1.3) Estimated GFR (Cockcroft-Gault) 109.4 Glucose Level 110mg/dL (70-99) Calcium Level 8.6mg/dL (8.5-10.1) Review of Systems Review of Systems Denies shortness of breath and chest pain. Denies fever and chills. Assessment and Plan Assessmemt and Plan Problems Medical Problems: (1) Abdominal pain Status: Acute (2) Chest pain Status: Acute (3) Cholelithiasis with acute cholecystitis with biliary obstruction Status: Acute ASSESSMENT: - abdominal pain, POD #4 laparoscopic converted to open cholecystectomy - GERD - HTN - Obesity - Alcoholism PLAN: Has been cleared by surgery and pulmonology for discharge Continue supplemental oxygen as needed Surgery,GI and pulmonology following, their recommendations are appreciated Continue narcotics for pain control Continue DVT ppx with lovenox Continue to monitor daily labs PT/OT eval and treat Discharge home today with outpatient follow up with pulmonology and surgery Problems: Comment Review of Relevant I have reviewed the following items nika (where applicable) has been applied. Labs Laboratory Tests Test 08/18/16 13:32 08/19/16 04:55 08/20/16 04:00 O2 Saturation 96% (92-99) Arterial Blood pH 7.45 (7.35-7.45) Arterial Blood pCO2 at Patient Temp 27mmHg (35-46) Arterial Blood pO2 at Patient Temp 80mmHg (65-108) Arterial Blood HCO3 18mmol/L (21-28) Arterial Blood Base Excess -5mmol/L (-3-3) FiO2 21 White Blood Count 9.1x10^3/uL (4.0-11.0) 8.9x10^3/uL (4.0-11.0) Red Blood Count 3.51x10^6/uL (4.30-5.70) 3.69x10^6/uL (4.30-5.70) Hemoglobin 11.9g/dL (13.0-17.5) 12.6g/dL (13.0-17.5) Hematocrit 33.9% (39.0-53.0) 36.6% (39.0-53.0) Mean Corpuscular Volume 97fL (79-100) 99fL (79-100) Mean Corpuscular Hemoglobin 34pg (25-35) 34pg (25-35) Mean Corpuscular Hemoglobin Concent 35g/dL (31-37) 35g/dL (31-37) Red Cell Distribution Width 12.7% (11.5-14.5) 12.6% (11.5-14.5) Platelet Count 246x10^3/uL (140-400) 282x10^3/uL (140-400) Neutrophils (%) (Auto) 66% (31-73) 59% (31-73) Lymphocytes (%) (Auto) 23% (24-48) 29% (24-48) Monocytes (%) (Auto) 9% (0-9) 9% (0-9) Eosinophils (%) (Auto) 2% (0-3) 3% (0-3) Basophils (%) (Auto) 1% (0-3) 1% (0-3) Neutrophils # (Auto) 6.0x10^3uL (1.8-7.7) 5.2x10^3uL (1.8-7.7) Lymphocytes # (Auto) 2.1x10^3/uL (1.0-4.8) 2.5x10^3/uL (1.0-4.8) Monocytes # (Auto) 0.8x10^3/uL (0.0-1.1) 0.8x10^3/uL (0.0-1.1) Eosinophils # (Auto) 0.2x10^3/uL (0.0-0.7) 0.2x10^3/uL (0.0-0.7) Basophils # (Auto) 0.0x10^3/uL (0.0-0.2) 0.1x10^3/uL (0.0-0.2) Sodium Level 136mmol/L (136-145) 137mmol/L (136-145) Potassium Level 4.3mmol/L (3.5-5.1) 4.6mmol/L (3.5-5.1) Chloride Level 104mmol/L (98-107) 103mmol/L (98-107) Carbon Dioxide Level 22mmol/L (21-32) 21mmol/L (21-32) Anion Gap 10 (6-14) 13 (6-14) Blood Urea Nitrogen 13mg/dL (8-26) 15mg/dL (8-26) Creatinine 0.8mg/dL (0.7-1.3) 0.7mg/dL (0.7-1.3) Estimated GFR (Cockcroft-Gault) 93.7 109.4 Glucose Level 101mg/dL (70-99) 110mg/dL (70-99) Calcium Level 8.2mg/dL (8.5-10.1) 8.6mg/dL (8.5-10.1) Laboratory Tests Test 08/20/16 04:00 White Blood Count 8.9x10^3/uL (4.0-11.0) Red Blood Count 3.69x10^6/uL (4.30-5.70) Hemoglobin 12.6g/dL (13.0-17.5) Hematocrit 36.6% (39.0-53.0) Mean Corpuscular Volume 99fL (79-100) Mean Corpuscular Hemoglobin 34pg (25-35) Mean Corpuscular Hemoglobin Concent 35g/dL (31-37) Red Cell Distribution Width 12.6% (11.5-14.5) Platelet Count 282x10^3/uL (140-400) Neutrophils (%) (Auto) 59% (31-73) Lymphocytes (%) (Auto) 29% (24-48) Monocytes (%) (Auto) 9% (0-9) Eosinophils (%) (Auto) 3% (0-3) Basophils (%) (Auto) 1% (0-3) Neutrophils # (Auto) 5.2x10^3uL (1.8-7.7) Lymphocytes # (Auto) 2.5x10^3/uL (1.0-4.8) Monocytes # (Auto) 0.8x10^3/uL (0.0-1.1) Eosinophils # (Auto) 0.2x10^3/uL (0.0-0.7) Basophils # (Auto) 0.1x10^3/uL (0.0-0.2) Sodium Level 137mmol/L (136-145) Potassium Level 4.6mmol/L (3.5-5.1) Chloride Level 103mmol/L (98-107) Carbon Dioxide Level 21mmol/L (21-32) Anion Gap 13 (6-14) Blood Urea Nitrogen 15mg/dL (8-26) Creatinine 0.7mg/dL (0.7-1.3) Estimated GFR (Cockcroft-Gault) 109.4 Glucose Level 110mg/dL (70-99) Calcium Level 8.6mg/dL (8.5-10.1) Microbiology 08/16/16 Gram Stain - Final, Complete Medications Current Medications Ondansetron HCl (Zofran) 4 mg 1X ONCE IV Last administered on 08/14/16 22:00 ; Start 08/14/16 at 21:30; Stop 08/14/16 at 21:31; Status DC Famotidine (Pepcid) 20 mg 1X ONCE IVP Last administered on 08/14/16 22:01; Start 08/14/16 at 21:30; Stop 08/14/16 at 21:31; Status DC Morphine Sulfate 4 mg 1X ONCE IV Last administered on 08/14/16 22:01; Start 08/14/16 at 21:30; Stop 08/14/16 at 21:31; Status DC Hydralazine HCl (Apresoline) 10 mg 1X ONCE IVP Last administered on 08/14/16 22:00; Start 08/14/16 at 21:30; Stop 08/14/16 at 21:31; Status DC Iohexol (Omnipaque 300 Mg/ml) 75 ml 1X ONCE IV Last administered on 08/14/16 22:25; Start 08/14/16 at 22:15; Stop 08/14/16 at 22:16; Status DC Info (Do NOT chart on this entry -- for MONITORING) 1 each PRN DAILY PRN MC SEE COMMENTS; Start 08/14/16 at 22:15; Stop 08/16/16 at 22:14; Status DC Aspirin (Children'S Aspirin) 324 mg 1X ONCE PO Last administered on 08/15/16 01:06; Start 08/15/16 at 00:15; Stop 08/15/16 at 00:16; Status DC Ondansetron HCl (Zofran) 4 mg PRN Q8HRS PRN IV NAUSEA/VOMITING; Start 08/15/16 at 00:15; Stop 08/15/16 at 13:57; Status DC Morphine Sulfate 4 mg 4 mg PRN Q2HR PRN IV PAIN Last administered on 08/15/16 08:58; Start 08/15/16 at 00:15; Stop 08/16/16 at 00:14; Status DC Sodium Chloride (Iv Sodium Chloride 0.9% 1000ml Bag) 1,000 ml @ 125 mls/hr Q8H IV Last administered on 08/15/16 20:32; Start 08/15/16 at 00:15; Stop at 00:14; Status DC Acetaminophen (Tylenol) 650 mg PRN Q4HRS PRN PO FEVER; Start 08/15/16 at 00:15 ; Stop 08/15/16 at 13:57; Status DC Acetaminophen (Tylenol) 650 mg PRN Q6HRS PRN PO MILD PAIN / TEMP; Start at 11:15 Ondansetron HCl (Zofran) 4 mg PRN Q6HRS PRN IV NAUSEA/VOMITING Last administered on 08/15/16 15:55; Start 08/15/16 at 11:15; Stop 08/16/16 at 19:01 ; Status DC Tramadol HCl (Ultram) 50 mg PRN Q6HRS PRN PO MODERATE - SEVERE PAIN Last administered on 08/15/16 14:36; Start 08/15/16 at 11:15 Morphine Sulfate 2 mg PRN Q2HR PRN IV PAIN; Start 08/15/16 at 11:15; Stop 08/15 at 20:32; Status DC Enoxaparin Sodium (Lovenox 40mg Syringe) 40 mg Q24H SQ Last administered on 14:34; Start 08/15/16 at 16:00; Stop 08/16/16 at 19:00; Status DC Pantoprazole Sodium (Protonix) 40 mg DAILYAC PO Last administered on 08/20/16 08:10; Start 08/15/16 at 15:00 Morphine Sulfate 2 mg PRN Q2HR PRN IV PAIN; Start 08/15/16 at 14:00; Stop 08/16 at 19:00; Status DC Morphine Sulfate 4 mg 1X ONCE IV Last administered on 08/16/16 08:30; Start 08/16/16 at 08:30; Stop 08/16/16 at 08:34; Status DC Morphine Sulfate 4 mg STK-MED ONCE .ROUTE ; Start 08/16/16 at 08:34; Stop at 08:35; Status DC Polyethylene Glycol 17 gm 17 gm DAILY PO Last administered on 08/20/16 08:10; Start 08/16/16 at 12:00 Piperacillin Sod/ Tazobactam Sod/ Sodium Chloride (Zosyn/Iv Sodium Chloride 0.9 % 50ml) 50 ml @ 100 mls/hr Q6HRS IV Last administered on 08/20/16 05:56; Start 08/16/16 at 12:15 Lidocaine HCl 100 mg STK-MED ONCE .ROUTE ; Start 08/16/16 at 13:33; Stop at 13:34; Status DC Dexamethasone Sodium Phosphate 20 mg 20 mg STK-MED ONCE .ROUTE ; Start 08/16/16 at 13:33; Stop 08/16/16 at 13:34; Status DC Propofol (Diprivan) 20 ml @ As Directed STK-MED ONCE IV ; Start 08/16/16 at 13: 33; Stop 08/16/16 at 13:34; Status DC Ondansetron HCl (Zofran) 4 mg STK-MED ONCE .ROUTE ; Start 08/16/16 at 13:33; Stop 08/16/16 at 13:34; Status DC Famotidine (Pepcid) 20 mg STK-MED ONCE .ROUTE ; Start 08/16/16 at 13:33; Stop at 13:34; Status DC Fentanyl Citrate (Fentanyl 2ml Vial) 100 mcg STK-MED ONCE .ROUTE ; Start at 13:33; Stop 08/16/16 at 13:34; Status DC Rocuronium [place] (Zemuron) 50 mg STK-MED ONCE .ROUTE ; Start 08/16/16 at 13:33 ; Stop 08/16/16 at 13:34; Status DC Cellulose 1 each STK-MED ONCE .ROUTE ; Start 08/16/16 at 13:37; Stop 08/16/16 at 13:38; Status DC Bupivacaine HCl/ Epinephrine Bitart (Sensorcain-Mpf Epi 0.5%-[id number]) 30 ml STK -MED ONCE .ROUTE Last administered on 08/16/16 16:51; Start 08/16/16 at 13:38 ; Stop 08/16/16 at 13:39; Status DC Iohexol (Omnipaque 300 Mg/ml) 50 ml STK-MED ONCE .ROUTE Last administered on 16:51; Start 08/16/16 at 13:38; Stop 08/16/16 at 13:39; Status DC Glucagon (Glucagen) 1 mg STK-MED ONCE .ROUTE Last administered on 08/16/16 18: 00; Start 08/16/16 at 13:38; Stop 08/16/16 at 13:39; Status DC Ondansetron HCl (Zofran) 4 mg PRN Q6HRS PRN IV Nausea; Start 08/16/16 at 14:00 ; Stop 08/17/16 at 13:59; Status DC Fentanyl Citrate (Fentanyl 2ml Vial) 25 mcg PRN Q5MIN PRN IV MILD PAIN; Start 08/16/16 at 14:00; Stop 08/17/16 at 13:59; Status DC Fentanyl Citrate (Fentanyl 2ml Vial) 50 mcg PRN Q5MIN PRN IV MODERATE PAIN Last administered on 08/16/16 19:41; Start 08/16/16 at 14:00; Stop 08/17/16 at 13:59; Status DC Morphine Sulfate 1 mg 1 mg PRN Q10MIN PRN IV SEVERE PAIN; Start 08/16/16 at 14: 00; Stop 08/17/16 at 13:59; Status DC Lactated Ringer's (Iv Lactated Ringers) 1,000 ml @ 30 mls/hr Q24H IV Last administered on 08/16/16 14:06; Start 08/16/16 at 13:53; Stop 08/17/16 at 01:52 ; Status DC Lidocaine HCl 2 ml 1X PRN PRN ID IV START; Start 08/16/16 at 14:00; Stop at 13:59; Status DC Hydromorphone HCl (Dilaudid) 0.5 mg PRN Q10MIN PRN IV SEV PAIN,Second choice; Start 08/16/16 at 14:00; Stop 08/17/16 at 13:59; Status DC Prochlorperazine Edisylate 5 mg 5 mg PACU PRN PRN IV NAUSEA Last administered on 08/16/16t 18:57; Start 08/16/16 at 14:00; Stop 08/17/16 at 13:59; Status DC Metronidazole (FLAGYL 500Mmg PREMIX) 100 ml @ 100 mls/hr 1X PREOP PRN IV prophylaxis\ Last administered on 08/16/16t 16:47; Start 08/17/16 at 06:00; Stop 08/17/16 at 18:00; Status DC Succinylcholine Chloride 200 mg 200 mg STK-MED ONCE .ROUTE ; Start 08/16/16 at 14:50; Stop 08/16/16 at 14:51; Status DC Metronidazole (FLAGYL 500Mmg PREMIX) 100 ml @ As Directed STK-MED ONCE IV ; Start 08/16/16 at 14:55; Stop 08/16/16 at 14:56; Status DC Phenylephrine HCl 1 mg STK-MED ONCE IV ; Start 08/16/16 at 16:44; Stop 08/16/16 at 16:45; Status DC Fentanyl Citrate (Fentanyl 2ml Vial) 100 mcg STK-MED ONCE .ROUTE ; Start at 16:58; Stop 08/16/16 at 16:59; Status DC Neostigmine Methylsulfate 5 mg STK-MED ONCE .ROUTE ; Start 08/16/16 at 16:59; Stop 08/16/16 at 17:00; Status DC Glycopyrrolate (Robinul) 1 mg STK-MED ONCE .ROUTE ; Start 08/16/16 at 16:59; Stop 08/16/16 at 17:00; Status DC Cellulose 1 each STK-MED ONCE .ROUTE ; Start 08/16/16 at 18:15; Stop 08/16/16 at 18:16; Status DC Fentanyl Citrate (Fentanyl 2ml Vial) 100 mcg STK-MED ONCE .ROUTE ; Start at 18:27; Stop 08/16/16 at 18:28; Status DC Sugammadex Sodium (Bridion) 200 mg STK-MED ONCE IVP ; Start 08/16/16 at 18:37; Stop 08/16/16 at 18:38; Status DC Diphenhydramine HCl (Benadryl) 25 mg PRN Q6HRS PRN PO ITCHING; Start 08/16/16 at 19:00 Diphenhydramine HCl (Benadryl) 25 mg PRN Q6HRS PRN IV ITCHING; Start 08/16/16 at 19:00 Enoxaparin Sodium (Lovenox 40mg Syringe) 40 mg Q24H SQ Last administered on 08:11; Start 08/17/16 at 09:00 Sodium Chloride 3 ml 3 ml QSHIFT PRN IV AFTER MEDS AND BLOOD DRAWS; Start 08/16 at 19:00 Potassium Chloride/Sodium Chloride 1,000 ml @ 100 mls/hr Q10H IV Last administered on 08/20/16 04:48; Start 08/16/16 at 18:50 Hydromorphone HCl (Dilaudid Standard PLY SPLICER) 30 ml @ 0 mls/hr CONT PRN PRN IV PROTOCOL Last administered on 08/16/16 19:28; Start 08/16/16 at 19:00; Stop at 11:30; Status DC Ondansetron HCl (Zofran) 4 mg PRN Q6HRS PRN IV NAUESA, 1ST CHOICE; Start at 19:00 Lorazepam (Ativan) 1 mg PRN Q6HRS PRN IV ANXIETY / AGITATION; Start 08/16/16 at 20:45 Oxycodone/ Acetaminophen (Percocet 5/325) 1 tab PRN Q4HRS PRN PO PAIN Last administered on 08/18/16 09:56; Start 08/17/16 at 11:30 Bisacodyl (Dulcolax Supp) 10 mg PRN DAILY PRN DC CONSTIPATION Last administered on 3/15/17at 18:30; Start 08/18/16 at 18:00 Active Scripts Active Reported [Ranitidine] PO [Flomax] PO [Losartan] PO DAILY [Vitamin] 1 PO DAILY [Aspirin] Mg PO DAILY Vitals/I & O Vital Sign - Last 24 Hours 08/19/16 08/19/16 08/19/16 08/19/16 11:00 14:56 19:00 23:00 Temp 98.1 96.8 97.9 97.9 98.1 96.8 97.9 97.9 Pulse 56 56 55 53 Resp 18 B/P 135/66 152/84 152/82 140/80 Pulse Ox 97 96 97 96 O2 Delivery Room Air Room Air Room Air Room Air 08/20/16 08/20/16 08/20/16 03:00 07:00 10:42 Temp 97.9 97.8 97.7 97.9 97.8 97.7 Pulse 70 51 60 Resp B/P 121/67 135/79 145/85 Pulse Ox 93 95 97 O2 Delivery Room Air Room Air Room Air Intake and Output 08/19/16 08/19/16 08/20/16 15:00 23:00 07:00 Intake Total 300 ml 120 ml 120 ml Output Total 3220 ml 700 ml Balance 300 ml -3100 ml -580 ml CATY VO III DO Aug 20, 2016 10:50
== END 2016-08-20 14:30 | disposition home or self-care (01) | DRG 414 ==
LOC: ER 20:28 → 5 SOUTH 08-15 00:07
PROVIDERS: ADMIT Internal Medicine; ATTEND Internal Medicine
PROC: 0FJ44ZZ Inspection of Gallbladder, Percutaneous Endoscopic Approach (ICD-10-PCS; 2016-08-16)
PROC: BF101ZZ Fluoroscopy of Bile Ducts using Low Osmolar Contrast (ICD-10-PCS; 2016-08-16)
PROC: 0FT40ZZ Resection of Gallbladder, Open Approach (ICD-10-PCS; principal; 2016-08-16 15:00)
PROC: 5A09357 Assistance with Respiratory Ventilation, Less than 24 Consecutive Hours, Continuous Positive Airway Pressure (ICD-10-PCS; 2016-08-17)
DX: K80.01 Calculus of gallbladder with acute cholecystitis with obstruction (principal); R65.11 Systemic inflammatory response syndrome (SIRS) of non-infectious origin with acute organ dysfunction; D62 Acute posthemorrhagic anemia; I96 Gangrene, not elsewhere classified; K21.9 Gastro-esophageal reflux disease without esophagitis; E66.9 Obesity, unspecified; F10.20 Alcohol dependence, uncomplicated; I10 Essential (primary) hypertension; J44.9 Chronic obstructive pulmonary disease, unspecified; K59.00 Constipation, unspecified; K76.0 Fatty (change of) liver, not elsewhere classified; Z53.31 Laparoscopic surgical procedure converted to open procedure; Z87.891 Personal history of nicotine dependence; Z90.49 Acquired absence of other specified parts of digestive tract; Z79.899 Other long term (current) drug therapy; Z68.27 Body mass index [BMI] 27.0-27.9, adult
CPT/HCPCS: 36415; 36600; 71010; 71020; 74000; 74177; 74300; 76705; 78226; 80048; 80053; 80076; 82805; 83690; 84484; 85007; 85027; 85610; 86850; 86900; 86901; 86927; 87071; 87075; 87205; 88304; 93005; 94620; 96374; 96375; A9537; C1769; C1782; J0330; J0360; J0780; J1100; J1170; J1610; J1650; J2270; J2370; J2405; J2543; J2704; J2710; J3010; J3490; J7030; J7120; P9017; Q9967; S0028; 97530; 99285-25

== ENCOUNTER 2017-04-18 16:27 | Inpatient (IN) | payer BC ==
[~2017-04-18] VITALS: Ht 185.4 cm; Wt 92.6 kg
[~2017-04-18 16:27] MED LIST changes: -ALBUMIN HUMAN 5% 500 ML IV ONE; -IOHEXOL 240 MG/ML 100 ML VIAL. IV ONE; -IOHEXOL 300 MG/ML 50 ML VIAL. PO ONE; -PHENYLEPHRINE in 0.9% NACL PF 1 MG/10 ML DISP.SYRIN. IV ONE; -ROCURONIUM 50 MG/5 ML VIAL. ONE; -fentaNYL PF VIAL 100 MCG/2 ML VIAL ONE
[2017-04-18] MEDS ORDERED: IV NORMAL SALINE 1000ML BAG 1,000 ML IV ONE (17:00)
[2017-04-18] MEDS ORDERED: PIPERACILLIN/TAZO IV Push 3.375 GM VIAL. IVP ONE (17:15)
[2017-04-18] MEDS ORDERED: PIPERACILLIN/TAZOBACTAM 3.375 GM in IV DEXTROSE 5% 50 ML IV ONE (17:15)
[2017-04-18 17:17] LABS: BASO # 0.1 x10^3/uL (0.0-0.2); BASO % 1 % (0-3); EOS % 3 % (0-3); HEMATOCRIT 40.3 % (39.0-53.0); LYMPH # 2.3 x10^3/uL (1.0-4.8); LYMPH % 32 % (24-48); MEAN CORPUSCULAR HEMOGLOBIN 34 pg (25-35); MEAN CORPUSCULAR HGB CONC 35 g/dL (31-37); MEAN CORPUSCULAR VOLUME 99 fL (79-100); MONO % 7 % (0-9); NEUT % 57 % (31-73); PLATELET COUNT 395 x10^3/uL (140-400); RED BLOOD COUNT 4.09 x10^6/uL (4.30-5.70); RED CELL DISTRIBUTION WIDTH 12.5 % (11.5-14.5); WHITE BLOOD COUNT 7.1 x10^3/uL (4.0-11.0)
[2017-04-18 17:26] LABS: INR 1.2 (0.8-1.1); PROTHROMBIN TIME PATIENT 14.3 SEC (11.7-14.0)
[2017-04-18] MEDS ORDERED: SEVOFLURANE 61 TO 120 MINUTES. IH ONE (17:36)
[2017-04-18] MEDS ORDERED: NEOSTIGMINE 10 MG/10 ML VIAL. ONE (17:36)
[2017-04-18] MEDS ORDERED: fentaNYL PF VIAL 100 MCG/2 ML VIAL ONE ×2 (17:36→19:49)
[2017-04-18] MEDS ORDERED: SUCCINYLCHOLINE 200 MG/10 ML VIAL. ONE (17:36)
[2017-04-18] MEDS ORDERED: GLYCOPYRROLATE 1 MG/5 ML VIAL. ONE (17:37)
[2017-04-18] MEDS ORDERED: DEXAMETHASONE SOD PHOS 20 MG/5 ML VIAL. ONE (17:37)
[2017-04-18] MEDS ORDERED: PROPOFOL 20 ML IV ONE (17:37)
[2017-04-18] MEDS ORDERED: LIDOCAINE 2% PF Vial for OR 5 ML VIAL. ONE (17:37)
[2017-04-18] MEDS ORDERED: ROCURONIUM 50 MG/5 ML VIAL. ONE (17:37)
[2017-04-18] MEDS ORDERED: ONDANSETRON PF 4 MG/2 ML VIAL. ONE (17:37)
[2017-04-18 17:51] LABS: BILIRUBIN,URINE NEGATIVE (NEG); GLUCOSE,URINE NEGATIVE (NEG); NITRITE,URINE NEGATIVE (NEG); PROTEIN,URINE NEGATIVE (NEG-TRACE); UROBILINOGEN,URINE 0.2 mg/dL (0.2 mg/dL)
[2017-04-18 18:02] LABS: BACTERIA,URINE 0 /HPF (0-FEW); RBC,URINE 0 /HPF (0-2); WBC,URINE 0 /HPF (0-4)
[2017-04-18 18:05] LABS: BARBITURATES NEG (NEG); BENZODIAZEPINES NEG (NEG); CANNABINOIDS NEG (NEG); COCAINE NEG (NEG); METHADONE NEG (NEG); OPIATES NEG (NEG); PHENCYCLIDINE NEG (NEG)
[2017-04-18 18:06] LABS: ALBUMIN/GLOBULIN RATIO 0.6 (1.0-1.7); CALCIUM 8.1 mg/dL (8.5-10.1); CREATININE 0.9 mg/dL (0.7-1.3); GFR 81.6; TOTAL BILIRUBIN 0.3 mg/dL (0.2-1.0); TOTAL PROTEIN 7.8 g/dL (6.4-8.2)
[2017-04-18 18:11] LABS: POTASSIUM 4.1 mmol/L (3.5-5.1)
--- NOTE | 2017-04-18 18:30 | PDOC1 ---
History and Physical Date of Admission Date of Admission DATE: 04/18/17 TIME: 18:21 Identification/Chief Complaint Chief Complaint abd pain Problems: Source Source: Chart review, Patient History of Present Illness History of Present Illness pt has had abd pain for a few days, has been unable to sleep on his abdomen, pain RLQ, but he reports feeling a little better, pain 4.10 he has been drinking beer today, had 5 PBR tall boys before he was called by primary care to come to the ER he is trying to drink less, drinks daily, hsi primary care noted elevated liver enzymes Dr. rGay is PCP Past Medical History Cardiovascular: HTN, Hyperlipidemia Hepatobiliary: No pertinent hx Psych: Addictions Musculoskeletal: low back pain Rheumatologic: No pertinent hx Infectious disease: No pertinent hx ENT: No pertinent hx Renal/: Benign prostatic enlarg. Past Surgical History Past Surgical History: No pertinent history Family History Family History: No Significant Social History Smoke: Quit () ALCOHOL: heavy Drugs: None Current Medications Current Medications Current Medications Sodium Chloride 1,000 ml @ 1,000 mls/hr 1X ONCE IV Last administered on 04/18t 17:14; Start 04/18/17 at 17:00; Stop 04/18/17 at 17:59; Status DC Metronidazole 100 ml @ 100 mls/hr Q8HRS IV ; Start 04/18/17 at 23:00 Piperacillin Sod/ Tazobactam Sod 3.375 gm/Dextrose 50 ml @ 100 mls/hr 1X ONCE IV ; Start 04/18/17 at 17:15; Stop 04/18/17 at 17:44; Status UNV Piperacillin Sod/ Tazobactam Sod (Zosyn) 3.375 gm 1X ONCE IVP Last administered on 04/18/17t 17:41; Start 04/18/17 at 17:15; Stop 04/18/17 at 17 :16; Status DC Metronidazole 100 ml @ 100 mls/hr 1X ONCE IV ; Start 04/18/17 at 17:15; Stop 04/18/17 at 18:14; Status DC Sevoflurane (Ultane) 60 ml STK-MED ONCE IH ; Start 04/18/17 at 17:36; Stop at 17:37; Status DC Fentanyl Citrate (Fentanyl 2ml Vial) 100 mcg STK-MED ONCE .ROUTE ; Start at 17:36; Stop 04/18/17 at 17:37; Status DC Neostigmine Methylsulfate (Bloxiverz) 10 mg STK-MED ONCE .ROUTE ; Start at 17:36; Stop 04/18/17 at 17:37; Status DC Succinylcholine Chloride (Anectine) 200 mg STK-MED ONCE .ROUTE ; Start at 17:36; Stop 04/18/17 at 17:37; Status DC Glycopyrrolate (Robinul) 1 mg STK-MED ONCE .ROUTE ; Start 04/18/17 at 17:37; Stop 04/18/17 at 17:38; Status DC Rocuronium [place] (Zemuron) 50 mg STK-MED ONCE .ROUTE ; Start 04/18/17 at 17: 37; Stop 04/18/17 at 17:38; Status DC Propofol 20 ml @ As Directed STK-MED ONCE IV ; Start 04/18/17 at 17:37; Stop 04/18/17 at 17:38; Status DC Lidocaine HCl (Lidocaine Pf 2% Vial) 5 ml STK-MED ONCE .ROUTE ; Start 04/18/17 at 17:37; Stop 04/18/17 at 17:38; Status DC Dexamethasone Sodium Phosphate (Decadron) 20 mg STK-MED ONCE .ROUTE ; Start at 17:37; Stop 04/18/17 at 17:38; Status DC Ondansetron HCl (Zofran) 4 mg STK-MED ONCE .ROUTE ; Start 04/18/17 at 17:37; Stop 04/18/17 at 17:38; Status DC Active Scripts Active Reported [Ranitidine] PO [Flomax] PO [Losartan] PO DAILY [Vitamin] 1 PO DAILY [Aspirin] Mg PO DAILY Allergies Allergies: Coded Allergies: No Known Drug Allergies (Unverified , 08/16/16) ROS General: No: Chills, Night Sweats, Fatigue, Malaise, Appetite, Other PSYCHOLOGICAL ROS: No: Anxiety, Behavioral Disorder, Concentration difficultie , Decreased libido, Depression, Disorientation, Hallucinations, Hostility, Irritablity, Memory difficulties, Mood Swings, Obsessive thoughts, Physical abuse, Sexual abuse, Sleep disturbances, Suicidal ideation, Other Eyes: No Blurry vision, No Decreased vision, No Double vision, No Dry eyes, No Excessive tearing, No Eye Pain, No Itchy Eyes, No Loss of vision, No Photophobia , No Scotomata, No Uses contacts, No Uses glasses, No Other HEENT: No: Heacaches, Visual Changes, Hearing change, Nasal congestion, Nasal discharge, Oral lesions, Sinus pain, Sore Throat, Epistaxis, Sneezing, Snoring, Tinnitus, Vertigo, Vocal changes, Other Respiratory: No: Cough, Hemoptysis, Orthopnea, Pleuritic Pain, Shortness of breath, SOB with excertion, Sputum Changes, Stridor, Tachypnea, Wheezing, Other Cardiovascular: No Chest Pain, No Palpitations, No Orthopnea, No Paroxysmal Noc. Dyspnea, No Edema, No Lt Headedness, No Other Gastrointestinal: No Nausea, No Vomiting, No Abdominal Pain, No Diarrhea, No Constipation, No Melena, No Hematochezia, No Other Genitourinary: No Dysuria, No Frequency, No Incontinence, No Hematuria, No Retention, No Discharge, No Urgency, No Pain, No Flank Pain, No Other, No , No , No , No , No , No , No Musculoskeletal: No Gait Disturbance, No Joint Pain, No Joint Stiffness, No Joint Swelling, No Muscle Pain, No Muscular Weakness Neurological: No Behavorial Changes, No Bowel/Bladder ControlChng, No Confusion , No Dizziness, No Gait Disturbance, No Headaches, No Impaired Coord/balance, No Memory Loss, No Numbness/Tingling, No Seizures, No Speech Problems, No Tremors, No Visual Changes, No Weakness, No Other Skin: No Dry Skin, No Eczema, No Hair Changes, No Lumps, No Mole Changes, No Mottling, No Nail Changes, No Pruritus, No Rash, No Skin Lesion Changes, No Other, No Acne Physical Exam General: Alert, Oriented X3, Cooperative, No acute distress HEENT: Atraumatic, PERRLA, EOMI, Mucous membr. moist/pink Heart: no gallops, no murmurs Abdomen: Normal bowel sounds, Soft (mild TTP RLq), No tenderness Male Genitals Exam: normal genitalia Rectal Exam: not examined Extremities: No cyanosis, No edema Skin: No rashes, No breakdown Neuro: Normal speech, Normal tone, Cranial nerves 3-12 NL Psych/Mental Status: Mood NL Vitals Vitals Vital Signs Date Time Temp Pulse Resp B/P (MAP) Pulse Ox O2 Delivery O2 Flow Rate FiO2 04/18/17 18:14 54 20 171/84 (113) 99 Room Air 04/18/17 16:36 97.9 97.9 Labs Labs Laboratory Tests Test 04/18/17 16:58 04/18/17 17:05 04/18/17 17:20 Sodium Level 136 mmol/L (136-145) Potassium Level 4.1 mmol/L (3.5-5.1) Chloride Level 101 mmol/L (98-107) Carbon Dioxide Level 26 mmol/L (21-32) Anion Gap 9 (6-14) Blood Urea Nitrogen 11 mg/dL (8-26) Creatinine 0.9 mg/dL (0.7-1.3) Estimated GFR (Cockcroft-Gault) 81.6 BUN/Creatinine Ratio 12 (6-20) Glucose Level 76 mg/dL (70-99) Calcium Level 8.1 mg/dL (8.5-10.1) Total Bilirubin 0.3 mg/dL (0.2-1.0) Aspartate Amino Transf (AST/SGOT) 36 U/L (15-37) Alanine Aminotransferase (ALT/SGPT) 65 U/L (16-63) Alkaline Phosphatase 76 U/L (46-116) Total Protein 7.8 g/dL (6.4-8.2) Albumin 3.0 g/dL (3.4-5.0) Albumin/Globulin Ratio 0.6 (1.0-1.7) Lipase 226 U/L (73-393) White Blood Count 7.1 x10^3/uL (4.0-11.0) Red Blood Count 4.09 x10^6/uL (4.30-5.70) Hemoglobin 14.0 g/dL (13.0-17.5) Hematocrit 40.3 % (39.0-53.0) Mean Corpuscular Volume 99 fL (79-100) Mean Corpuscular Hemoglobin 34 pg (25-35) Mean Corpuscular Hemoglobin Concent 35 g/dL (31-37) Red Cell Distribution Width 12.5 % (11.5-14.5) Platelet Count 395 x10^3/uL (140-400) Neutrophils (%) (Auto) 57 % (31-73) Lymphocytes (%) (Auto) 32 % (24-48) Monocytes (%) (Auto) 7 % (0-9) Eosinophils (%) (Auto) 3 % (0-3) Basophils (%) (Auto) 1 % (0-3) Neutrophils # (Auto) 4.1 x10^3uL (1.8-7.7) Lymphocytes # (Auto) 2.3 x10^3/uL (1.0-4.8) Monocytes # (Auto) 0.5 x10^3/uL (0.0-1.1) Eosinophils # (Auto) 0.2 x10^3/uL (0.0-0.7) Basophils # (Auto) 0.1 x10^3/uL (0.0-0.2) Prothrombin Time 14.3 SEC (11.7-14.0) Prothromb Time International Ratio 1.2 (0.8-1.1) Activated Partial Thromboplast Time 28 SEC (24-38) Ethyl Alcohol Level 67 mg/dL (0-10) Urine Collection Type Unknown Urine Color Yellow Urine Clarity Clear Urine pH 6.0 Urine Specific [place] <=1.005 Urine Protein Negative mg/dL (NEG-TRACE) Urine Glucose (UA) Negative mg/dL (NEG) Urine Ketones (Stick) Negative mg/dL (NEG) Urine Blood Negative (NEG) Urine Nitrite Negative (NEG) Urine Bilirubin Negative (NEG) Urine Urobilinogen Dipstick 0.2 mg/dL (0.2 mg/dL) Urine Leukocyte Esterase Negative (NEG) Urine RBC 0 /HPF (0-2) Urine WBC 0 /HPF (0-4) Urine Bacteria 0 /HPF (0-FEW) Urine Opiates Screen Neg (NEG) Urine Methadone Screen Neg (NEG) Urine Barbiturates Neg (NEG) Urine Phencyclidine Screen Neg (NEG) Urine Amphetamine/Methamphetamine Neg (NEG) Urine Benzodiazepines Screen Neg (NEG) Urine Cocaine Screen Neg (NEG) Urine Cannabinoids Screen Neg (NEG) Urine Ethyl Alcohol Pos (NEG) Laboratory Tests Test 04/18/17 16:58 04/18/17 17:05 04/18/17 17:20 Sodium Level 136 mmol/L (136-145) Potassium Level 4.1 mmol/L (3.5-5.1) Chloride Level 101 mmol/L (98-107) Carbon Dioxide Level 26 mmol/L (21-32) Anion Gap 9 (6-14) Blood Urea Nitrogen 11 mg/dL (8-26) Creatinine 0.9 mg/dL (0.7-1.3) Estimated GFR (Cockcroft-Gault) 81.6 BUN/Creatinine Ratio 12 (6-20) Glucose Level 76 mg/dL (70-99) Calcium Level 8.1 mg/dL (8.5-10.1) Total Bilirubin 0.3 mg/dL (0.2-1.0) Aspartate Amino Transf (AST/SGOT) 36 U/L (15-37) Alanine Aminotransferase (ALT/SGPT) 65 U/L (16-63) Alkaline Phosphatase 76 U/L (46-116) Total Protein 7.8 g/dL (6.4-8.2) Albumin 3.0 g/dL (3.4-5.0) Albumin/Globulin Ratio 0.6 (1.0-1.7) Lipase 226 U/L (73-393) White Blood Count 7.1 x10^3/uL (4.0-11.0) Red Blood Count 4.09 x10^6/uL (4.30-5.70) Hemoglobin 14.0 g/dL (13.0-17.5) Hematocrit 40.3 % (39.0-53.0) Mean Corpuscular Volume 99 fL (79-100) Mean Corpuscular Hemoglobin 34 pg (25-35) Mean Corpuscular Hemoglobin Concent 35 g/dL (31-37) Red Cell Distribution Width 12.5 % (11.5-14.5) Platelet Count 395 x10^3/uL (140-400) Neutrophils (%) (Auto) 57 % (31-73) Lymphocytes (%) (Auto) 32 % (24-48) Monocytes (%) (Auto) 7 % (0-9) Eosinophils (%) (Auto) 3 % (0-3) Basophils (%) (Auto) 1 % (0-3) Neutrophils # (Auto) 4.1 x10^3uL (1.8-7.7) Lymphocytes # (Auto) 2.3 x10^3/uL (1.0-4.8) Monocytes # (Auto) 0.5 x10^3/uL (0.0-1.1) Eosinophils # (Auto) 0.2 x10^3/uL (0.0-0.7) Basophils # (Auto) 0.1 x10^3/uL (0.0-0.2) Prothrombin Time 14.3 SEC (11.7-14.0) Prothromb Time International Ratio 1.2 (0.8-1.1) Activated Partial Thromboplast Time 28 SEC (24-38) Ethyl Alcohol Level 67 mg/dL (0-10) Urine Collection Type Unknown Urine Color Yellow Urine Clarity Clear Urine pH 6.0 Urine Specific [place] <=1.005 Urine Protein Negative mg/dL (NEG-TRACE) Urine Glucose (UA) Negative mg/dL (NEG) Urine Ketones (Stick) Negative mg/dL (NEG) Urine Blood Negative (NEG) Urine Nitrite Negative (NEG) Urine Bilirubin Negative (NEG) Urine Urobilinogen Dipstick 0.2 mg/dL (0.2 mg/dL) Urine Leukocyte Esterase Negative (NEG) Urine RBC 0 /HPF (0-2) Urine WBC 0 /HPF (0-4) Urine Bacteria 0 /HPF (0-FEW) Urine Opiates Screen Neg (NEG) Urine Methadone Screen Neg (NEG) Urine Barbiturates Neg (NEG) Urine Phencyclidine Screen Neg (NEG) Urine Amphetamine/Methamphetamine Neg (NEG) Urine Benzodiazepines Screen Neg (NEG) Urine Cocaine Screen Neg (NEG) Urine Cannabinoids Screen Neg (NEG) Urine Ethyl Alcohol Pos (NEG) VTE Prophylaxis Ordered VTE Prophylaxis Devices: Yes VTE Pharmacological Prophylaxi: Yes Assessment/Plan Assessment/Plan acute abdominal pain that he now reports as improved CT scan abdomen as outpatient showed acute appendicitis, EtOH abuse, daily, had 5 beers today before he was called to come in early COPD, hyperlipids BPH mild malnutrition CINDY NELSON MD Apr 18, 2017 18:30
--- NOTE | 2017-04-18 18:48 | PDOC2 ---
CONSULT Date of Consult Date of Consult DATE: 04/18/17 TIME: 18:36 History of Present Illness Reason for Visit: The patient is a 77 year old male who was seen by his PCP due to abdominal pain. The patient seems to be a fairly poor historian and admits to drinking regularly. He does admit to around a week of abdominal pain on the right side with some improvement today. An outpt CT scan was consistent with appendicitis. Past Medical History Cardiovascular: HTN, Hyperlipidemia Hepatobiliary: No pertinent hx Psych: Addictions Musculoskeletal: low back pain Rheumatologic: No pertinent hx Infectious disease: No pertinent hx ENT: No pertinent hx Renal/: Benign prostatic enlarg. Past Surgical History Past Surgical History open joaquin Past Surgical History: No pertinent history Family History Family History: No Significant Social History Quit () ALCOHOL: heavy Drugs: None Current Medications Current Medications Current Medications Sodium Chloride 1,000 ml @ 1,000 mls/hr 1X ONCE IV Last administered on 04/18t 17:14; Start 04/18/17 at 17:00; Stop 04/18/17 at 17:59; Status DC Metronidazole 100 ml @ 100 mls/hr Q8HRS IV ; Start 04/18/17 at 23:00 Piperacillin Sod/ Tazobactam Sod 3.375 gm/Dextrose 50 ml @ 100 mls/hr 1X ONCE IV ; Start 04/18/17 at 17:15; Stop 04/18/17 at 17:44; Status UNV Piperacillin Sod/ Tazobactam Sod (Zosyn) 3.375 gm 1X ONCE IVP Last administered on 04/18/17t 17:41; Start 04/18/17 at 17:15; Stop 04/18/17 at 17 :16; Status DC Metronidazole 100 ml @ 100 mls/hr 1X ONCE IV ; Start 04/18/17 at 17:15; Stop 04/18/17 at 18:14; Status DC Sevoflurane (Ultane) 60 ml STK-MED ONCE IH ; Start 04/18/17 at 17:36; Stop at 17:37; Status DC Fentanyl Citrate (Fentanyl 2ml Vial) 100 mcg STK-MED ONCE .ROUTE ; Start at 17:36; Stop 04/18/17 at 17:37; Status DC Neostigmine Methylsulfate (Bloxiverz) 10 mg STK-MED ONCE .ROUTE ; Start at 17:36; Stop 04/18/17 at 17:37; Status DC Succinylcholine Chloride (Anectine) 200 mg STK-MED ONCE .ROUTE ; Start at 17:36; Stop 04/18/17 at 17:37; Status DC Glycopyrrolate (Robinul) 1 mg STK-MED ONCE .ROUTE ; Start 04/18/17 at 17:37; Stop 04/18/17 at 17:38; Status DC Rocuronium [place] (Zemuron) 50 mg STK-MED ONCE .ROUTE ; Start 04/18/17 at 17: 37; Stop 04/18/17 at 17:38; Status DC Propofol 20 ml @ As Directed STK-MED ONCE IV ; Start 04/18/17 at 17:37; Stop 04/18/17 at 17:38; Status DC Lidocaine HCl (Lidocaine Pf 2% Vial) 5 ml STK-MED ONCE .ROUTE ; Start 04/18/17 at 17:37; Stop 04/18/17 at 17:38; Status DC Dexamethasone Sodium Phosphate (Decadron) 20 mg STK-MED ONCE .ROUTE ; Start at 17:37; Stop 04/18/17 at 17:38; Status DC Ondansetron HCl (Zofran) 4 mg STK-MED ONCE .ROUTE ; Start 04/18/17 at 17:37; Stop 04/18/17 at 17:38; Status DC Tamsulosin HCl (Flomax) 0.4 mg DAILY PO ; Start 04/19/17 at 09:00 Losartan Potassium (Cozaar) 50 mg DAILY PO ; Start 04/19/17 at 09:00 Multivitamins 10 ml/Thiamine HCl 100 mg/Ringer's Solution 1,011 ml @ 250 mls/ hr 1X ONCE IV ; Start 04/18/17 at 19:00; Stop 04/18/17 at 23:02 Active Scripts Active Reported [Ranitidine] PO [Flomax] PO [Losartan] PO DAILY [Vitamin] 1 PO DAILY [Aspirin] Mg PO DAILY Allergies Allergies: Coded Allergies: No Known Drug Allergies (Unverified , 08/16/16) ROS General: No: Chills, Night Sweats, Fatigue, Malaise, Appetite, Other PSYCHOLOGICAL ROS: No: Anxiety, Behavioral Disorder, Concentration difficultie , Decreased libido, Depression, Disorientation, Hallucinations, Hostility, Irritablity, Memory difficulties, Mood Swings, Obsessive thoughts, Physical abuse, Sexual abuse, Sleep disturbances, Suicidal ideation, Other Eyes: No Blurry vision, No Decreased vision, No Double vision, No Dry eyes, No Excessive tearing, No Eye Pain, No Itchy Eyes, No Loss of vision, No Photophobia , No Scotomata, No Uses contacts, No Uses glasses, No Other HEENT: No: Heacaches, Visual Changes, Hearing change, Nasal congestion, Nasal discharge, Oral lesions, Sinus pain, Sore Throat, Epistaxis, Sneezing, Snoring, Tinnitus, Vertigo, Vocal changes, Other Hematological and Lymphatic: No: Bleeding Problems, Blood Clots, Blood Transfusions, Brusing, Night Sweats, Pallor, Swollen Lymph Nodes, Other ENDOCRINE: No: Breast Changes, Galactorrhea, Hair Pattern Changes, Hot Flashes , Malaise/lethargy, Mood Swings, Palpitations, Polydipsia/polyuria, Skin Changes , Temperature Intolerance, Unexpected Weight Changes, Other Respiratory: No: Cough, Hemoptysis, Orthopnea, Pleuritic Pain, Shortness of breath, SOB with excertion, Sputum Changes, Stridor, Tachypnea, Wheezing, Other Cardiovascular: No Chest Pain, No Palpitations, No Orthopnea, No Paroxysmal Noc. Dyspnea, No Edema, No Lt Headedness, No Other Gastrointestinal: Yes Abdominal Pain Genitourinary: No Dysuria, No Frequency, No Incontinence, No Hematuria, No Retention, No Discharge, No Urgency, No Pain, No Flank Pain, No Other, No , No , No , No , No , No , No Musculoskeletal: No Gait Disturbance, No Joint Pain, No Joint Stiffness, No Joint Swelling, No Muscle Pain, No Muscular Weakness, No Pain In:, No Swelling In:, No Other Neurological: No Behavorial Changes, No Bowel/Bladder ControlChng, No Confusion , No Dizziness, No Gait Disturbance, No Headaches, No Impaired Coord/balance, No Memory Loss, No Numbness/Tingling, No Seizures, No Speech Problems, No Tremors, No Visual Changes, No Weakness, No Other Skin: No Dry Skin, No Eczema, No Hair Changes, No Lumps, No Mole Changes, No Mottling, No Nail Changes, No Pruritus, No Rash, No Skin Lesion Changes, No Other, No Acne Physical Exam General: Alert, Oriented X3, Other (admits to recent ETOH use) HEENT: Atraumatic Lungs: Other (some pursed lip breathing) Heart: Regular rate Abdomen: Soft (reports some right sided pain, no guarding or peritoneal signs, R subscostal scar) Skin: No rashes, No breakdown Psych/Mental Status: Other (some confusion) MUSCULOSKELETAL: No joint tenderness, No deformity Vitals VITALS Vital Signs Date Time Temp Pulse Resp B/P (MAP) Pulse Ox O2 Delivery O2 Flow Rate FiO2 04/18/17 18:14 54 20 171/84 (113) 99 Room Air 04/18/17 16:36 97.9 97.9 Labs Labs Laboratory Tests Test 04/18/17 16:58 04/18/17 17:05 04/18/17 17:20 Sodium Level 136 mmol/L (136-145) Potassium Level 4.1 mmol/L (3.5-5.1) Chloride Level 101 mmol/L (98-107) Carbon Dioxide Level 26 mmol/L (21-32) Anion Gap 9 (6-14) Blood Urea Nitrogen 11 mg/dL (8-26) Creatinine 0.9 mg/dL (0.7-1.3) Estimated GFR (Cockcroft-Gault) 81.6 BUN/Creatinine Ratio 12 (6-20) Glucose Level 76 mg/dL (70-99) Calcium Level 8.1 mg/dL (8.5-10.1) Total Bilirubin 0.3 mg/dL (0.2-1.0) Aspartate Amino Transf (AST/SGOT) 36 U/L (15-37) Alanine Aminotransferase (ALT/SGPT) 65 U/L (16-63) Alkaline Phosphatase 76 U/L (46-116) Total Protein 7.8 g/dL (6.4-8.2) Albumin 3.0 g/dL (3.4-5.0) Albumin/Globulin Ratio 0.6 (1.0-1.7) Lipase 226 U/L (73-393) White Blood Count 7.1 x10^3/uL (4.0-11.0) Red Blood Count 4.09 x10^6/uL (4.30-5.70) Hemoglobin 14.0 g/dL (13.0-17.5) Hematocrit 40.3 % (39.0-53.0) Mean Corpuscular Volume 99 fL (79-100) Mean Corpuscular Hemoglobin 34 pg (25-35) Mean Corpuscular Hemoglobin Concent 35 g/dL (31-37) Red Cell Distribution Width 12.5 % (11.5-14.5) Platelet Count 395 x10^3/uL (140-400) Neutrophils (%) (Auto) 57 % (31-73) Lymphocytes (%) (Auto) 32 % (24-48) Monocytes (%) (Auto) 7 % (0-9) Eosinophils (%) (Auto) 3 % (0-3) Basophils (%) (Auto) 1 % (0-3) Neutrophils # (Auto) 4.1 x10^3uL (1.8-7.7) Lymphocytes # (Auto) 2.3 x10^3/uL (1.0-4.8) Monocytes # (Auto) 0.5 x10^3/uL (0.0-1.1) Eosinophils # (Auto) 0.2 x10^3/uL (0.0-0.7) Basophils # (Auto) 0.1 x10^3/uL (0.0-0.2) Prothrombin Time 14.3 SEC (11.7-14.0) Prothromb Time International Ratio 1.2 (0.8-1.1) Activated Partial Thromboplast Time 28 SEC (24-38) Ethyl Alcohol Level 67 mg/dL (0-10) Urine Collection Type Unknown Urine Color Yellow Urine Clarity Clear Urine pH 6.0 Urine Specific [place] <=1.005 Urine Protein Negative mg/dL (NEG-TRACE) Urine Glucose (UA) Negative mg/dL (NEG) Urine Ketones (Stick) Negative mg/dL (NEG) Urine Blood Negative (NEG) Urine Nitrite Negative (NEG) Urine Bilirubin Negative (NEG) Urine Urobilinogen Dipstick 0.2 mg/dL (0.2 mg/dL) Urine Leukocyte Esterase Negative (NEG) Urine RBC 0 /HPF (0-2) Urine WBC 0 /HPF (0-4) Urine Bacteria 0 /HPF (0-FEW) Urine Opiates Screen Neg (NEG) Urine Methadone Screen Neg (NEG) Urine Barbiturates Neg (NEG) Urine Phencyclidine Screen Neg (NEG) Urine Amphetamine/Methamphetamine Neg (NEG) Urine Benzodiazepines Screen Neg (NEG) Urine Cocaine Screen Neg (NEG) Urine Cannabinoids Screen Neg (NEG) Urine Ethyl Alcohol Pos (NEG) Laboratory Tests Test 04/18/17 16:58 04/18/17 17:05 04/18/17 17:20 Sodium Level 136 mmol/L (136-145) Potassium Level 4.1 mmol/L (3.5-5.1) Chloride Level 101 mmol/L (98-107) Carbon Dioxide Level 26 mmol/L (21-32) Anion Gap 9 (6-14) Blood Urea Nitrogen 11 mg/dL (8-26) Creatinine 0.9 mg/dL (0.7-1.3) Estimated GFR (Cockcroft-Gault) 81.6 BUN/Creatinine Ratio 12 (6-20) Glucose Level 76 mg/dL (70-99) Calcium Level 8.1 mg/dL (8.5-10.1) Total Bilirubin 0.3 mg/dL (0.2-1.0) Aspartate Amino Transf (AST/SGOT) 36 U/L (15-37) Alanine Aminotransferase (ALT/SGPT) 65 U/L (16-63) Alkaline Phosphatase 76 U/L (46-116) Total Protein 7.8 g/dL (6.4-8.2) Albumin 3.0 g/dL (3.4-5.0) Albumin/Globulin Ratio 0.6 (1.0-1.7) Lipase 226 U/L (73-393) White Blood Count 7.1 x10^3/uL (4.0-11.0) Red Blood Count 4.09 x10^6/uL (4.30-5.70) Hemoglobin 14.0 g/dL (13.0-17.5) Hematocrit 40.3 % (39.0-53.0) Mean Corpuscular Volume 99 fL (79-100) Mean Corpuscular Hemoglobin 34 pg (25-35) Mean Corpuscular Hemoglobin Concent 35 g/dL (31-37) Red Cell Distribution Width 12.5 % (11.5-14.5) Platelet Count 395 x10^3/uL (140-400) Neutrophils (%) (Auto) 57 % (31-73) Lymphocytes (%) (Auto) 32 % (24-48) Monocytes (%) (Auto) 7 % (0-9) Eosinophils (%) (Auto) 3 % (0-3) Basophils (%) (Auto) 1 % (0-3) Neutrophils # (Auto) 4.1 x10^3uL (1.8-7.7) Lymphocytes # (Auto) 2.3 x10^3/uL (1.0-4.8) Monocytes # (Auto) 0.5 x10^3/uL (0.0-1.1) Eosinophils # (Auto) 0.2 x10^3/uL (0.0-0.7) Basophils # (Auto) 0.1 x10^3/uL (0.0-0.2) Prothrombin Time 14.3 SEC (11.7-14.0) Prothromb Time International Ratio 1.2 (0.8-1.1) Activated Partial Thromboplast Time 28 SEC (24-38) Ethyl Alcohol Level 67 mg/dL (0-10) Urine Collection Type Unknown Urine Color Yellow Urine Clarity Clear Urine pH 6.0 Urine Specific [place] <=1.005 Urine Protein Negative mg/dL (NEG-TRACE) Urine Glucose (UA) Negative mg/dL (NEG) Urine Ketones (Stick) Negative mg/dL (NEG) Urine Blood Negative (NEG) Urine Nitrite Negative (NEG) Urine Bilirubin Negative (NEG) Urine Urobilinogen Dipstick 0.2 mg/dL (0.2 mg/dL) Urine Leukocyte Esterase Negative (NEG) Urine RBC 0 /HPF (0-2) Urine WBC 0 /HPF (0-4) Urine Bacteria 0 /HPF (0-FEW) Urine Opiates Screen Neg (NEG) Urine Methadone Screen Neg (NEG) Urine Barbiturates Neg (NEG) Urine Phencyclidine Screen Neg (NEG) Urine Amphetamine/Methamphetamine Neg (NEG) Urine Benzodiazepines Screen Neg (NEG) Urine Cocaine Screen Neg (NEG) Urine Cannabinoids Screen Neg (NEG) Urine Ethyl Alcohol Pos (NEG) Assessment/Plan Assessment/Plan 77 year old male with reported abdominal pain, CT suggestive of appendicitis, WBC normal, exam not typical, but patient difficult historian. I discussed options with the patient and laparoscopy may be beneficial in light of the CT findings. I did explain the chance that the appendix is normal as well as the risks of surgery. He understands and is agreeable for surgery. ANA PABON MD Apr 18, 2017 18:48
[2017-04-18] MEDS ORDERED: IV RINGERS,LACTATED 1000ML 1,000 ML IV SCH (18:50)
[2017-04-18] MEDS ORDERED: THIAMINE IV ONE (19:00)
[2017-04-18] MEDS ORDERED: MULTIVIT INFUSN ADULT K IV ONE (19:00)
[2017-04-18] MEDS ORDERED: ONDANSETRON PF 4 MG/2 ML VIAL. IV PRN ×2 (19:00→23:00)
[2017-04-18] MEDS ORDERED: MORPHINE SULFATE 2 MG/ML DISP.SYRIN. IV PRN ×2 (19:00→23:00)
[2017-04-18] MEDS ORDERED: [UNRECOGNIZED DRUG - OTHER] IV ONE (19:00)
[2017-04-18] MEDS ORDERED: fentaNYL PF VIAL 100 MCG/2 ML VIAL IV PRN ×4 (19:00→23:00)
[2017-04-18] MEDS ORDERED: HYDROmorphone 2 MG/ML VIAL IV PRN ×2 (19:00→23:00)
[2017-04-18] MEDS ORDERED: PROCHLORPERAZINE 10 MG/2 ML VIAL. IV PRN ×2 (19:00→23:00)
[2017-04-18] MEDS ORDERED: LIDOCAINE 1% PF 2 ML VIAL. ID PRN (19:00)
--- NOTE | 2017-04-18 19:01 | PHYS DOC ---
Past Medical History Past Medical History: Alcoholism, COPD, GERD, Hypertension Additional Past Medical Histor: POOR HISTORIAN Past Surgical History: Appendectomy, Cholecystectomy, Tonsillectomy Additional Past Surgical Histo: UNKNOWN Additional Information: quit smoking 1971 Alcohol Use: Heavy Additional Information: average 4 16 ounce beers nightly, occasional hard liquor Drug Use: None Adult General Chief Complaint Chief Complaint: ABDOMINAL PAIN HPI HPI Patient is a 77 year old male with history of alcoholism, hypertension, COPD, very poor historian, who presents today complaining of right lower quadrant abdominal pain intermittently for one week. Patient states he was seen by the PCP and they ordered a CT of his abdomen looking for liver cirrhosis and found out he had acute appendicitis and was requested to come to the ED. Patient states he did have 5 bottles of beer prior to coming to the hospital. Review of Systems Review of Systems Constitutional: Denies fever or chills [] Eyes: Denies change in visual acuity, redness, or eye pain [] HENT: Denies nasal congestion or sore throat [] Respiratory: Denies cough or shortness of breath [] Cardiovascular: No additional information not addressed in HPI [] GI: Right lower quadrant pain, denies nausea, vomiting, bloody stools or diarrhea [] : Denies dysuria or hematuria [] Musculoskeletal: Denies back pain or joint pain [] Integument: Denies rash or skin lesions [] Neurologic: Denies headache, focal weakness or sensory changes [] Endocrine: Denies polyuria or polydipsia [] All other systems were reviewed and found to be within normal limits, except as documented in this note. Current Medications Current Medications Current Medications Medications (Trade) Dose Ordered Sig/Luzma Start Time Stop Time Status Last Admin Dose Admin Dexamethasone Sodium Phosphate (Decadron) 20 mg STK-MED ONCE 04/18/17 17:37 04/18/17 17:38 DC Fentanyl Citrate (Fentanyl 2ml Vial) 50 mcg PRN Q5MIN PRN 04/18/17 19:00 04/18/17 22:00 Glycopyrrolate (Robinul) 1 mg STK-MED ONCE 04/18/17 17:37 04/18/17 17:38 DC Hydromorphone HCl (Dilaudid) 0.5 mg PRN Q10MIN PRN 04/18/17 19:00 04/18/17 22:00 Lidocaine HCl (Lidocaine Pf 2% Vial) 5 ml STK-MED ONCE 04/18/17 17:37 04/18/17 17:38 DC Lidocaine HCl (Xylocaine-Mpf 1% Vial) 2 ml 1X PRN PRN 04/18/17 19:00 04/18/17 22:00 Losartan Potassium (Cozaar) 50 mg DAILY 04/19/17 09:00 Metronidazole 100 ml @ 100 mls/hr 1X ONCE 04/18/17 17:15 04/18/17 18:14 DC Morphine Sulfate 1 mg PRN Q10MIN PRN 04/18/17 19:00 04/18/17 22:00 Multivitamins 10 ml/Thiamine HCl 100 mg/Ringer's Solution 1,011 ml @ 250 mls/hr 1X ONCE 04/18/17 19:00 04/18/17 23:02 Neostigmine Methylsulfate (Bloxiverz) 10 mg STK-MED ONCE 04/18/17 17:36 04/18/17 17:37 DC Ondansetron HCl (Zofran) 4 mg PRN Q6HRS PRN 04/18/17 19:00 04/18/17 22:00 Piperacillin Sod/ Tazobactam Sod (Zosyn) 3.375 gm 1X ONCE 04/18/17 17:15 04/18/17 17:16 DC 04/18/17 17:41 3.375 GM Piperacillin Sod/ Tazobactam Sod 3.375 gm/Dextrose 50 ml @ 100 mls/hr 1X ONCE 04/18/17 17:15 04/18/17 17:44 UNV Prochlorperazine Edisylate (Compazine) 5 mg PACU PRN PRN 04/18/17 19:00 04/18/17 22:00 Propofol 20 ml @ As Directed STK-MED ONCE 04/18/17 17:37 04/18/17 17:38 DC Ringer's Solution 1,000 ml @ 30 mls/hr Q24H 04/18/17 18:50 04/19/17 06:49 Rocuronium [place] (Zemuron) 50 mg STK-MED ONCE 04/18/17 17:37 04/18/17 17:38 DC Sevoflurane (Ultane) 60 ml STK-MED ONCE 04/18/17 17:36 04/18/17 17:37 DC Sodium Chloride 1,000 ml @ 1,000 mls/hr 1X ONCE 04/18/17 17:00 04/18/17 17:59 DC 04/18/17 17:14 1,000 MLS/HR Succinylcholine Chloride (Anectine) 200 mg STK-MED ONCE 04/18/17 17:36 04/18/17 17:37 DC Tamsulosin HCl (Flomax) 0.4 mg DAILY 04/19/17 09:00 Allergies Allergies Allergies Coded Allergies Type Severity Reaction Last Updated Verified No Known Drug Allergies 08/16/16 No Physical Exam Physical Exam Constitutional: Well developed, well nourished, no acute distress, non-toxic appearance. [] HENT: Normocephalic, atraumatic, bilateral external ears normal, oropharynx moist, no oral exudates, nose normal. [] Eyes: PERRLA, EOMI, conjunctiva normal, no discharge. [] Neck: Normal range of motion, no tenderness, supple, no stridor. [] Cardiovascular:Heart rate regular rhythm, no murmur [] Lungs & Thorax: Bilateral breath sounds clear to auscultation [] Abdomen: Rounded abdomen. Bowel sounds normal, soft, slight tenderness to the right lower quadrant the exam is difficult because patient is a poor historian and is laughing and joking as we do the exam, no masses, no pulsatile masses. [ ] Skin: Warm, dry, no erythema, no rash. [] Back: No tenderness, no CVA tenderness. [] Extremities: No tenderness, no cyanosis, no clubbing, ROM intact, no edema. [] Neurologic: Alert and oriented X 3, normal motor function, normal sensory function, no focal deficits noted. [] Psychologic: Affect normal, judgement normal, mood normal. [] Current Patient Data Vital Signs Vital Signs Date Time Temp Pulse Resp B/P (MAP) Pulse Ox O2 Delivery O2 Flow Rate FiO2 04/18/17 18:14 54 20 171/84 (113) 99 Room Air 04/18/17 16:36 97.9 97.9 Lab Values Laboratory Tests Test 04/18/17 16:58 04/18/17 17:05 04/18/17 17:20 Sodium Level 136 mmol/L (136-145) Potassium Level 4.1 mmol/L (3.5-5.1) Chloride Level 101 mmol/L (98-107) Carbon Dioxide Level 26 mmol/L (21-32) Anion Gap 9 (6-14) Blood Urea Nitrogen 11 mg/dL (8-26) Creatinine 0.9 mg/dL (0.7-1.3) Estimated GFR (Cockcroft-Gault) 81.6 BUN/Creatinine Ratio 12 (6-20) Glucose Level 76 mg/dL (70-99) Calcium Level 8.1 mg/dL (8.5-10.1) L Total Bilirubin 0.3 mg/dL (0.2-1.0) Aspartate Amino Transferase (AST) 36 U/L (15-37) Alanine Aminotransferase (ALT) 65 U/L (16-63) H Alkaline Phosphatase 76 U/L (46-116) Total Protein 7.8 g/dL (6.4-8.2) Albumin 3.0 g/dL (3.4-5.0) L Albumin/Globulin Ratio 0.6 (1.0-1.7) L Lipase 226 U/L (73-393) White Blood Count 7.1 x10^3/uL (4.0-11.0) Red Blood Count 4.09 x10^6/uL (4.30-5.70) L Hemoglobin 14.0 g/dL (13.0-17.5) Hematocrit 40.3 % (39.0-53.0) Mean Corpuscular Volume 99 fL (79-100) Mean Corpuscular Hemoglobin 34 pg (25-35) Mean Corpuscular Hemoglobin Concent 35 g/dL (31-37) Red Cell Distribution Width 12.5 % (11.5-14.5) Platelet Count 395 x10^3/uL (140-400) Neutrophils (%) (Auto) 57 % (31-73) Lymphocytes (%) (Auto) 32 % (24-48) Monocytes (%) (Auto) 7 % (0-9) Eosinophils (%) (Auto) 3 % (0-3) Basophils (%) (Auto) 1 % (0-3) Neutrophils # (Auto) 4.1 x10^3uL (1.8-7.7) Lymphocytes # (Auto) 2.3 x10^3/uL (1.0-4.8) Monocytes # (Auto) 0.5 x10^3/uL (0.0-1.1) Eosinophils # (Auto) 0.2 x10^3/uL (0.0-0.7) Basophils # (Auto) 0.1 x10^3/uL (0.0-0.2) Prothrombin Time 14.3 SEC (11.7-14.0) H Prothrombin Time INR 1.2 (0.8-1.1) H PTT 28 SEC (24-38) Ethyl Alcohol Level 67 mg/dL (0-10) H Urine Collection Type Unknown Urine Color Yellow Urine Clarity Clear Urine pH 6.0 Urine Specific [place] <=1.005 Urine Protein Negative mg/dL (NEG-TRACE) Urine Glucose (UA) Negative mg/dL (NEG) Urine Ketones (Stick) Negative mg/dL (NEG) Urine Blood Negative (NEG) Urine Nitrite Negative (NEG) Urine Bilirubin Negative (NEG) Urine Urobilinogen Dipstick 0.2 mg/dL (0.2 mg/dL) Urine Leukocyte Esterase Negative (NEG) Urine RBC 0 /HPF (0-2) Urine WBC 0 /HPF (0-4) Urine Bacteria 0 /HPF (0-FEW) Urine Opiates Screen Neg (NEG) Urine Methadone Screen Neg (NEG) Urine Barbiturates Neg (NEG) Urine Phencyclidine Screen Neg (NEG) Urine Amphetamine/Methamphetamine Neg (NEG) Urine Benzodiazepines Screen Neg (NEG) Urine Cocaine Screen Neg (NEG) Urine Cannabinoids Screen Neg (NEG) Urine Ethyl Alcohol Pos (NEG) Laboratory Tests 04/18/17 17:05 Laboratory Tests 04/18/17 16:58 EKG EKG [] Radiology/Procedures Radiology/Procedures [] Course & Med Decision Making Course & Med Decision Making Pertinent Labs and Imaging studies reviewed. (See chart for details) Patient is in the ED with with right lower quadrant pain for one week. See history of present illness. He had an outpatient CT which showed he has acute appendicitis. Consulted with Dr. Díaz and Dr. Packer. Patient was admitted. Dragon Disclaimer Dragon Disclaimer This electronic medical record was generated, in whole or in part, using a voice recognition dictation system. Departure Departure Impression: Primary Impression: Acute appendicitis Additional Impression: ETOH abuse Disposition: ADMITTED INPATIENT Condition: STABLE Referrals: TARIK HUDSON MD (PCP) Problem Qualifiers Primary Impression: Acute appendicitis Acute appendicitis type: unspecified acute appendicitis type Qualified Codes : K35.80 - Unspecified acute appendicitis SEBASTIÁN HERNÁNDEZ SONG PLUGGER Apr 18, 2017 19:01
[2017-04-18] MEDS ORDERED: BUPIVAC MPF-EPI 0.5%-1:200000 30 ML VIAL. ONE (19:16)
[2017-04-18] MEDS ORDERED: PHENYLEPHRINE in 0.9% NACL PF 1 MG/10 ML DISP.SYRIN. IV ONE (20:04)
[2017-04-18] MEDS ORDERED: SURGICEL HEMOSTAT 4X8 EACH. ONE ×2 (20:35→21:26)
--- NOTE | 2017-04-18 22:45 | PDOC4 ---
Operative Note Operative Note Operative Note: Preoperative Diagnosis: Acute appendicitis Postoperative Diagnosis: Same Procedure: Exploratory laparoscopy with lysis of adhesions, open appendectomy Surgeon: Arjun Scaffold Setter: Dr. Raza Anesthesia: Gen. EBL: 900 mL Specimen: Appendix to pathology Drains: 19 Albanian round Gopi drain to right upper quadrant Findings: Abnormal appendix with marked inflammatory change, no abscess Complications: None Disposition: To PACU in stable condition Indication: The patient is a 77-year-old gentleman who reported to his primary care physician with somewhat vague abdominal pain. An outpatient CT scan showed findings consistent with acute appendicitis. He was admitted to the hospital for definitive treatment. I discussed surgical treatment with the patient with a plan for laparoscopic appendectomy. I reviewed the details and risks of surgery. The risks include bleeding, infection, visceral injury, pain, anesthetic risk, potential need for additional surgery or procedure. He is also aware of the possibility of needing an open approach. He understands and would like to proceed. Description: The patient was taken to the operating room and placed supine on the operating table. Gen. anesthesia was performed. The abdomen was prepped with ChloraPrep and draped in a standard surgical manner. A left upper quadrant incision was made through which a visualized 5 mm trocar was inserted. A pneumoperitoneum was created and the laparoscope was introduced. In the left lower quadrant another 5 mm trocar was inserted. In the lower midabdomen a 5 mm trocar was inserted. The patient's cecum was located in the right upper quadrant close to the liver. We directed our attention to this region. There were numerous adhesions of omentum which were taken down with sharp dissection. There were also adhesions of the cecum which were also mobilized with sharp dissection. To identify an obvious inflammatory reaction coming off the lateral aspect of the cecum just below the liver. We attempted to better delineate this however this proved difficult laparoscopically. It appeared that there was a significant surrounding inflammatory reaction and we were unable to progress laparoscopically. We then converted to an open approach. Given the location of the appendix I elected to use the patient's prior right subcostal scar that had been used for a prior open cholecystectomy. With a scalpel an incision was made at the prior right subcostal scar. Cautery dissection was carried down through the subcutaneous tissues. The anterior and posterior fascial layers were then divided and the abdominal cavity was entered. The Omni retractor was used for the remainder of the case to facilitate exposure. Again it was difficult to clearly identify the course of the appendix as it appeared to be involved with an inflammatory mass. With palpation I was able to free up some of the surrounding inflammatory adhesions of the suspected appendix. We were then able to better identify what appeared to be a markedly thickened and abnormal appendix that came off of the cecum. I began to manually free it from its posterior attachments. At this point we encountered some bleeding that seemed most likely from a vessel posteriorly, likely originating in either large or small bowel mesentery. The bleeding was fairly deep and difficult to initially see clearly. This area was packed and pressure was applied for control. Several Surgicel packs were also placed at the bleeding site. After things seemed better controlled we carefully tried to visualize the region. We began mobilizing the junction of the appendix from the cecum. The appendix was then amputated off the cecum using a regular load on the Endo GUILLERMO 45. We then freed up the more inflamed distal portion of the appendix from the surrounding tissues. The appendix was fully excised and sent off to pathology. Some of the packs were then taken off of the area that had been bleeding, and we identified the bleeding vessel which again seemed most likely from nearby adherent mesentery. A few clips were applied in the region of the bleeding vessel. This initially seemed to help some, but there was some continued oozing. Given its deep location and the marked surrounding inflammatory response it proved very difficult to try to control with suture ligation. We elected to continue holding pressure and the area which was then treated with FloSeal followed by several Surgicel packs. This combination appeared to work well as there was no further bleeding. The area was inspected for some time and again hemostasis was good at this point. The cecum and small bowel were visualized and appeared viable and healthy. No other abnormalities were noted. A 19 Albanian round Gopi drain was then placed in the right upper quadrant with an exit site inferior to the incision. This was secured to the skin with 2-0 silk. Prior to closing we again inspected the area of dissection and hemostasis remained good. The anterior and posterior fascial layers were both closed with a running 1 PDS suture. The skin at all incisions was closed with manjit. Sterile dressings were then applied. The patient remained stable during the surgery and was sent to the recovery room. At the end of the case all counts were correct. ANA PABON MD Apr 18, 2017 22:45
[2017-04-18] MEDS ORDERED: MORPHINE SULFATE 2 MG/ML DISP.SYRIN. ONE (22:47)
--- NOTE | 2017-04-18 23:14 | RAD ---
Abdominal radiograph 04/18/2017 INDICATION: Open laparoscopic appendectomy. COMPARISON: Abdominal radiograph August 16, 2016 TECHNIQUE: Single supine portable view of the abdomen is provided. FINDINGS: Supine technique limits evaluation for free intraperitoneal air. Surgical manjit are identified along her right upper quadrant and left lower quadrant. Cholecystectomy clips are present. No dilated loops of small or large bowel are identified. Oral contrast is identified within the transverse colon. A drainage catheter is identified projecting over the right upper quadrant. No radiopaque foreign densities are identified. IMPRESSION: No radiopaque foreign densities are identified. Electronically signed by: Olive Watson MD (04/18/2017 11:11 PM) [id number]
[2017-04-18] MEDS ORDERED: IPRATRPIUM/ALBUTEROL 0.5/2.5MG 3 ML NEBU. NEB PRN (23:15)
[2017-04-18] MEDS ORDERED: hydrALAZINE 10 MG TABLET PO PRN (23:30)
[2017-04-18 23:58] LABS: HEMATOCRIT 38.6 % (39.0-53.0); HEMOGLOBIN 13.3 g/dL (13.0-17.5)
[2017-04-19] VITALS (15 sets, daily range): BP systolic 146–185; BP diastolic 64–108
[2017-04-19] MEDS ORDERED: LABETALOL 20 MG/4 ML DISP.SYRIN. IVP PRN (01:45)
[2017-04-19 05:02] LABS: BASO % 0 % (0-3); EOS % 0 % (0-3); HEMOGLOBIN 12.8 g/dL (13.0-17.5); LYMPH # 0.7 x10^3/uL (1.0-4.8); LYMPH % 6 % (24-48); MEAN CORPUSCULAR HEMOGLOBIN 33 pg (25-35); MEAN CORPUSCULAR HGB CONC 34 g/dL (31-37); MEAN CORPUSCULAR VOLUME 99 fL (79-100); MONO % 4 % (0-9); NEUT % 91 % (31-73); PLATELET COUNT 354 x10^3/uL (140-400); RED BLOOD COUNT 3.86 x10^6/uL (4.30-5.70); WHITE BLOOD COUNT 13.2 x10^3/uL (4.0-11.0)
[2017-04-19 05:08] LABS: INR 1.1 (0.8-1.1); PROTHROMBIN TIME PATIENT 13.2 SEC (11.7-14.0)
[2017-04-19 07:37] LABS: PLT ESTIMATE ADEQUATE (ADEQUATE)
[2017-04-19] MEDS: LOSARTAN POTASSIUM 50 MG TABLET. PO SCH (08:52)
[2017-04-19] MEDS: TAMSULOSIN 0.4 MG CAP.ER.24H. PO SCH (08:52)
--- NOTE | 2017-04-19 13:31 | PDOC ---
ARMANDO MCGEE PROSTHETIC DENTIST 04/19/17 1331: SURGICAL PROGRESS NOTE Subjective minimal pain no flatus Vital Signs Vital Signs Date Time Temp Pulse Resp B/P (MAP) Pulse Ox O2 Delivery O2 Flow Rate FiO2 04/19/17 07:00 98.4 85 18 146/64 (91) 94 Room Air 98.4 04/19/17 01:30 10.0 I&O Intake and Output 04/19/17 06:59 Intake Total 4575 ml Output Total 3865 ml Balance 710 ml Intake Oral 0 ml IV Total 4575 ml Output Urine Total 2950 ml Drainage Total 15 ml Estimated Blood Loss 900 ml PATIENT HAS A VERA: Yes General: Alert, Oriented X3, Cooperative, No acute distress Abdomen: Soft, Other (drain serosang, dressing dry) Labs Laboratory Tests Test 04/18/17 16:58 04/18/17 17:05 04/18/17 17:20 04/18/17 23:56 Sodium Level 136 mmol/L (136-145) Potassium Level 4.1 mmol/L (3.5-5.1) Chloride Level 101 mmol/L (98-107) Carbon Dioxide Level 26 mmol/L (21-32) Anion Gap 9 (6-14) Blood Urea Nitrogen 11 mg/dL (8-26) Creatinine 0.9 mg/dL (0.7-1.3) Estimated GFR (Cockcroft-Gault) 81.6 BUN/Creatinine Ratio 12 (6-20) Glucose Level 76 mg/dL (70-99) Calcium Level 8.1 mg/dL (8.5-10.1) Total Bilirubin 0.3 mg/dL (0.2-1.0) Aspartate Amino Transf (AST/SGOT) 36 U/L (15-37) Alanine Aminotransferase (ALT/SGPT) 65 U/L (16-63) Alkaline Phosphatase 76 U/L (46-116) Total Protein 7.8 g/dL (6.4-8.2) Albumin 3.0 g/dL (3.4-5.0) Albumin/Globulin Ratio 0.6 (1.0-1.7) Lipase 226 U/L (73-393) White Blood Count 7.1 x10^3/uL (4.0-11.0) Red Blood Count 4.09 x10^6/uL (4.30-5.70) Hemoglobin 14.0 g/dL (13.0-17.5) 13.3 g/dL (13.0-17.5) Hematocrit 40.3 % (39.0-53.0) 38.6 % (39.0-53.0) Mean Corpuscular Volume 99 fL (79-100) Mean Corpuscular Hemoglobin 34 pg (25-35) Mean Corpuscular Hemoglobin Concent 35 g/dL (31-37) 34 g/dL (31-37) Red Cell Distribution Width 12.5 % (11.5-14.5) Platelet Count 395 x10^3/uL (140-400) Neutrophils (%) (Auto) 57 % (31-73) Lymphocytes (%) (Auto) 32 % (24-48) Monocytes (%) (Auto) 7 % (0-9) Eosinophils (%) (Auto) 3 % (0-3) Basophils (%) (Auto) 1 % (0-3) Neutrophils # (Auto) 4.1 x10^3uL (1.8-7.7) Lymphocytes # (Auto) 2.3 x10^3/uL (1.0-4.8) Monocytes # (Auto) 0.5 x10^3/uL (0.0-1.1) Eosinophils # (Auto) 0.2 x10^3/uL (0.0-0.7) Basophils # (Auto) 0.1 x10^3/uL (0.0-0.2) Prothrombin Time 14.3 SEC (11.7-14.0) Prothromb Time International Ratio 1.2 (0.8-1.1) Activated Partial Thromboplast Time 28 SEC (24-38) Ethyl Alcohol Level 67 mg/dL (0-10) Urine Collection Type Unknown Urine Color Yellow Urine Clarity Clear Urine pH 6.0 Urine Specific [place] <=1.005 Urine Protein Negative mg/dL (NEG-TRACE) Urine Glucose (UA) Negative mg/dL (NEG) Urine Ketones (Stick) Negative mg/dL (NEG) Urine Blood Negative (NEG) Urine Nitrite Negative (NEG) Urine Bilirubin Negative (NEG) Urine Urobilinogen Dipstick 0.2 mg/dL (0.2 mg/dL) Urine Leukocyte Esterase Negative (NEG) Urine RBC 0 /HPF (0-2) Urine WBC 0 /HPF (0-4) Urine Bacteria 0 /HPF (0-FEW) Urine Opiates Screen Neg (NEG) Urine Methadone Screen Neg (NEG) Urine Barbiturates Neg (NEG) Urine Phencyclidine Screen Neg (NEG) Urine Amphetamine/Methamphetamine Neg (NEG) Urine Benzodiazepines Screen Neg (NEG) Urine Cocaine Screen Neg (NEG) Urine Cannabinoids Screen Neg (NEG) Urine Ethyl Alcohol Pos (NEG) Test 04/19/17 03:48 White Blood Count 13.2 x10^3/uL (4.0-11.0) Red Blood Count 3.86 x10^6/uL (4.30-5.70) Hemoglobin 12.8 g/dL (13.0-17.5) Hematocrit 38.0 % (39.0-53.0) Mean Corpuscular Volume 99 fL (79-100) Mean Corpuscular Hemoglobin 33 pg (25-35) Mean Corpuscular Hemoglobin Concent 34 g/dL (31-37) Red Cell Distribution Width 13.0 % (11.5-14.5) Platelet Count 354 x10^3/uL (140-400) Neutrophils (%) (Auto) 91 % (31-73) Lymphocytes (%) (Auto) 6 % (24-48) Monocytes (%) (Auto) 4 % (0-9) Eosinophils (%) (Auto) 0 % (0-3) Basophils (%) (Auto) 0 % (0-3) Neutrophils # (Auto) 12.0 x10^3uL (1.8-7.7) Lymphocytes # (Auto) 0.7 x10^3/uL (1.0-4.8) Monocytes # (Auto) 0.5 x10^3/uL (0.0-1.1) Eosinophils # (Auto) 0.0 x10^3/uL (0.0-0.7) Basophils # (Auto) 0.0 x10^3/uL (0.0-0.2) Segmented Neutrophils % 77 % (35-66) Band Neutrophils % 12 % (0-9) Lymphocytes % 7 % (24-48) Monocytes % 4 % (0-10) Platelet Estimate Adequate (ADEQUATE) Prothrombin Time 13.2 SEC (11.7-14.0) Prothromb Time International Ratio 1.1 (0.8-1.1) Laboratory Tests Test 04/18/17 16:58 04/18/17 17:05 04/18/17 17:20 04/18/17 23:56 Sodium Level 136 mmol/L (136-145) Potassium Level 4.1 mmol/L (3.5-5.1) Chloride Level 101 mmol/L (98-107) Carbon Dioxide Level 26 mmol/L (21-32) Anion Gap 9 (6-14) Blood Urea Nitrogen 11 mg/dL (8-26) Creatinine 0.9 mg/dL (0.7-1.3) Estimated GFR (Cockcroft-Gault) 81.6 BUN/Creatinine Ratio 12 (6-20) Glucose Level 76 mg/dL (70-99) Calcium Level 8.1 mg/dL (8.5-10.1) Total Bilirubin 0.3 mg/dL (0.2-1.0) Aspartate Amino Transf (AST/SGOT) 36 U/L (15-37) Alanine Aminotransferase (ALT/SGPT) 65 U/L (16-63) Alkaline Phosphatase 76 U/L (46-116) Total Protein 7.8 g/dL (6.4-8.2) Albumin 3.0 g/dL (3.4-5.0) Albumin/Globulin Ratio 0.6 (1.0-1.7) Lipase 226 U/L (73-393) White Blood Count 7.1 x10^3/uL (4.0-11.0) Red Blood Count 4.09 x10^6/uL (4.30-5.70) Hemoglobin 14.0 g/dL (13.0-17.5) 13.3 g/dL (13.0-17.5) Hematocrit 40.3 % (39.0-53.0) 38.6 % (39.0-53.0) Mean Corpuscular Volume 99 fL (79-100) Mean Corpuscular Hemoglobin 34 pg (25-35) Mean Corpuscular Hemoglobin Concent 35 g/dL (31-37) 34 g/dL (31-37) Red Cell Distribution Width 12.5 % (11.5-14.5) Platelet Count 395 x10^3/uL (140-400) Neutrophils (%) (Auto) 57 % (31-73) Lymphocytes (%) (Auto) 32 % (24-48) Monocytes (%) (Auto) 7 % (0-9) Eosinophils (%) (Auto) 3 % (0-3) Basophils (%) (Auto) 1 % (0-3) Neutrophils # (Auto) 4.1 x10^3uL (1.8-7.7) Lymphocytes # (Auto) 2.3 x10^3/uL (1.0-4.8) Monocytes # (Auto) 0.5 x10^3/uL (0.0-1.1) Eosinophils # (Auto) 0.2 x10^3/uL (0.0-0.7) Basophils # (Auto) 0.1 x10^3/uL (0.0-0.2) Prothrombin Time 14.3 SEC (11.7-14.0) Prothromb Time International Ratio 1.2 (0.8-1.1) Activated Partial Thromboplast Time 28 SEC (24-38) Ethyl Alcohol Level 67 mg/dL (0-10) Urine Collection Type Unknown Urine Color Yellow Urine Clarity Clear Urine pH 6.0 Urine Specific [place] <=1.005 Urine Protein Negative mg/dL (NEG-TRACE) Urine Glucose (UA) Negative mg/dL (NEG) Urine Ketones (Stick) Negative mg/dL (NEG) Urine Blood Negative (NEG) Urine Nitrite Negative (NEG) Urine Bilirubin Negative (NEG) Urine Urobilinogen Dipstick 0.2 mg/dL (0.2 mg/dL) Urine Leukocyte Esterase Negative (NEG) Urine RBC 0 /HPF (0-2) Urine WBC 0 /HPF (0-4) Urine Bacteria 0 /HPF (0-FEW) Urine Opiates Screen Neg (NEG) Urine Methadone Screen Neg (NEG) Urine Barbiturates Neg (NEG) Urine Phencyclidine Screen Neg (NEG) Urine Amphetamine/Methamphetamine Neg (NEG) Urine Benzodiazepines Screen Neg (NEG) Urine Cocaine Screen Neg (NEG) Urine Cannabinoids Screen Neg (NEG) Urine Ethyl Alcohol Pos (NEG) Test 04/19/17 03:48 White Blood Count 13.2 x10^3/uL (4.0-11.0) Red Blood Count 3.86 x10^6/uL (4.30-5.70) Hemoglobin 12.8 g/dL (13.0-17.5) Hematocrit 38.0 % (39.0-53.0) Mean Corpuscular Volume 99 fL (79-100) Mean Corpuscular Hemoglobin 33 pg (25-35) Mean Corpuscular Hemoglobin Concent 34 g/dL (31-37) Red Cell Distribution Width 13.0 % (11.5-14.5) Platelet Count 354 x10^3/uL (140-400) Neutrophils (%) (Auto) 91 % (31-73) Lymphocytes (%) (Auto) 6 % (24-48) Monocytes (%) (Auto) 4 % (0-9) Eosinophils (%) (Auto) 0 % (0-3) Basophils (%) (Auto) 0 % (0-3) Neutrophils # (Auto) 12.0 x10^3uL (1.8-7.7) Lymphocytes # (Auto) 0.7 x10^3/uL (1.0-4.8) Monocytes # (Auto) 0.5 x10^3/uL (0.0-1.1) Eosinophils # (Auto) 0.0 x10^3/uL (0.0-0.7) Basophils # (Auto) 0.0 x10^3/uL (0.0-0.2) Segmented Neutrophils % 77 % (35-66) Band Neutrophils % 12 % (0-9) Lymphocytes % 7 % (24-48) Monocytes % 4 % (0-10) Platelet Estimate Adequate (ADEQUATE) Prothrombin Time 13.2 SEC (11.7-14.0) Prothromb Time International Ratio 1.1 (0.8-1.1) Problem List Problems Medical Problems: (1) ETOH abuse Status: Acute Assessment/Plan s/p open appy hgb stable drain serosang bowel rest, await bowel function Problems: ANA PABON MD 04/20/17 0716: SURGICAL PROGRESS NOTE Assessment/Plan agree with above Problems: ARMANDO MCGEE PROSTHETIC DENTIST Apr 19, 2017 13:31 ANA PABON MD Apr 20, 2017 07:16
--- NOTE | 2017-04-19 15:21 | PDOC ---
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 History of Present Illness History of Present Illness ROS: no fever, chills, sob or chest pain looks weak no flatus or BM post op Vitals Vitals Vital Signs Date Time Temp Pulse Resp B/P (MAP) Pulse Ox O2 Delivery O2 Flow Rate FiO2 04/19/17 07:00 98.4 85 18 146/64 (91) 94 Room Air 98.4 04/19/17 01:30 10.0 Physical Exam General: Alert, Oriented X3, Cooperative, No acute distress Heart: Regular rate, Normal S1, Normal S2 Lungs: Clear Abdomen: Soft, Other (drain serosang, dressing dry) Extremities: No cyanosis, No edema Skin: No rashes, No breakdown Labs LABS Laboratory Tests Test 04/18/17 16:58 04/18/17 17:05 04/18/17 17:20 04/18/17 23:56 Sodium Level 136 mmol/L (136-145) Potassium Level 4.1 mmol/L (3.5-5.1) Chloride Level 101 mmol/L (98-107) Carbon Dioxide Level 26 mmol/L (21-32) Anion Gap 9 (6-14) Blood Urea Nitrogen 11 mg/dL (8-26) Creatinine 0.9 mg/dL (0.7-1.3) Estimated GFR (Cockcroft-Gault) 81.6 BUN/Creatinine Ratio 12 (6-20) Glucose Level 76 mg/dL (70-99) Calcium Level 8.1 mg/dL (8.5-10.1) Total Bilirubin 0.3 mg/dL (0.2-1.0) Aspartate Amino Transf (AST/SGOT) 36 U/L (15-37) Alanine Aminotransferase (ALT/SGPT) 65 U/L (16-63) Alkaline Phosphatase 76 U/L (46-116) Total Protein 7.8 g/dL (6.4-8.2) Albumin 3.0 g/dL (3.4-5.0) Albumin/Globulin Ratio 0.6 (1.0-1.7) Lipase 226 U/L (73-393) White Blood Count 7.1 x10^3/uL (4.0-11.0) Red Blood Count 4.09 x10^6/uL (4.30-5.70) Hemoglobin 14.0 g/dL (13.0-17.5) 13.3 g/dL (13.0-17.5) Hematocrit 40.3 % (39.0-53.0) 38.6 % (39.0-53.0) Mean Corpuscular Volume 99 fL (79-100) Mean Corpuscular Hemoglobin 34 pg (25-35) Mean Corpuscular Hemoglobin Concent 35 g/dL (31-37) 34 g/dL (31-37) Red Cell Distribution Width 12.5 % (11.5-14.5) Platelet Count 395 x10^3/uL (140-400) Neutrophils (%) (Auto) 57 % (31-73) Lymphocytes (%) (Auto) 32 % (24-48) Monocytes (%) (Auto) 7 % (0-9) Eosinophils (%) (Auto) 3 % (0-3) Basophils (%) (Auto) 1 % (0-3) Neutrophils # (Auto) 4.1 x10^3uL (1.8-7.7) Lymphocytes # (Auto) 2.3 x10^3/uL (1.0-4.8) Monocytes # (Auto) 0.5 x10^3/uL (0.0-1.1) Eosinophils # (Auto) 0.2 x10^3/uL (0.0-0.7) Basophils # (Auto) 0.1 x10^3/uL (0.0-0.2) Prothrombin Time 14.3 SEC (11.7-14.0) Prothromb Time International Ratio 1.2 (0.8-1.1) Activated Partial Thromboplast Time 28 SEC (24-38) Ethyl Alcohol Level 67 mg/dL (0-10) Urine Collection Type Unknown Urine Color Yellow Urine Clarity Clear Urine pH 6.0 Urine Specific [place] <=1.005 Urine Protein Negative mg/dL (NEG-TRACE) Urine Glucose (UA) Negative mg/dL (NEG) Urine Ketones (Stick) Negative mg/dL (NEG) Urine Blood Negative (NEG) Urine Nitrite Negative (NEG) Urine Bilirubin Negative (NEG) Urine Urobilinogen Dipstick 0.2 mg/dL (0.2 mg/dL) Urine Leukocyte Esterase Negative (NEG) Urine RBC 0 /HPF (0-2) Urine WBC 0 /HPF (0-4) Urine Bacteria 0 /HPF (0-FEW) Urine Opiates Screen Neg (NEG) Urine Methadone Screen Neg (NEG) Urine Barbiturates Neg (NEG) Urine Phencyclidine Screen Neg (NEG) Urine Amphetamine/Methamphetamine Neg (NEG) Urine Benzodiazepines Screen Neg (NEG) Urine Cocaine Screen Neg (NEG) Urine Cannabinoids Screen Neg (NEG) Urine Ethyl Alcohol Pos (NEG) Test 04/19/17 03:48 White Blood Count 13.2 x10^3/uL (4.0-11.0) Red Blood Count 3.86 x10^6/uL (4.30-5.70) Hemoglobin 12.8 g/dL (13.0-17.5) Hematocrit 38.0 % (39.0-53.0) Mean Corpuscular Volume 99 fL (79-100) Mean Corpuscular Hemoglobin 33 pg (25-35) Mean Corpuscular Hemoglobin Concent 34 g/dL (31-37) Red Cell Distribution Width 13.0 % (11.5-14.5) Platelet Count 354 x10^3/uL (140-400) Neutrophils (%) (Auto) 91 % (31-73) Lymphocytes (%) (Auto) 6 % (24-48) Monocytes (%) (Auto) 4 % (0-9) Eosinophils (%) (Auto) 0 % (0-3) Basophils (%) (Auto) 0 % (0-3) Neutrophils # (Auto) 12.0 x10^3uL (1.8-7.7) Lymphocytes # (Auto) 0.7 x10^3/uL (1.0-4.8) Monocytes # (Auto) 0.5 x10^3/uL (0.0-1.1) Eosinophils # (Auto) 0.0 x10^3/uL (0.0-0.7) Basophils # (Auto) 0.0 x10^3/uL (0.0-0.2) Segmented Neutrophils % 77 % (35-66) Band Neutrophils % 12 % (0-9) Lymphocytes % 7 % (24-48) Monocytes % 4 % (0-10) Platelet Estimate Adequate (ADEQUATE) Prothrombin Time 13.2 SEC (11.7-14.0) Prothromb Time International Ratio 1.1 (0.8-1.1) Assessment and Plan Assessmemt and Plan Problems Medical Problems: (1) ETOH abuse Status: Acute Problems: Comment Review of Relevant I have reviewed the following items nika (where applicable) has been applied. Labs Laboratory Tests Test 04/18/17 16:58 04/18/17 17:05 04/18/17 17:20 04/18/17 23:56 Sodium Level 136 mmol/L (136-145) Potassium Level 4.1 mmol/L (3.5-5.1) Chloride Level 101 mmol/L (98-107) Carbon Dioxide Level 26 mmol/L (21-32) Anion Gap 9 (6-14) Blood Urea Nitrogen 11 mg/dL (8-26) Creatinine 0.9 mg/dL (0.7-1.3) Estimated GFR (Cockcroft-Gault) 81.6 BUN/Creatinine Ratio 12 (6-20) Glucose Level 76 mg/dL (70-99) Calcium Level 8.1 mg/dL (8.5-10.1) Total Bilirubin 0.3 mg/dL (0.2-1.0) Aspartate Amino Transf (AST/SGOT) 36 U/L (15-37) Alanine Aminotransferase (ALT/SGPT) 65 U/L (16-63) Alkaline Phosphatase 76 U/L (46-116) Total Protein 7.8 g/dL (6.4-8.2) Albumin 3.0 g/dL (3.4-5.0) Albumin/Globulin Ratio 0.6 (1.0-1.7) Lipase 226 U/L (73-393) White Blood Count 7.1 x10^3/uL (4.0-11.0) Red Blood Count 4.09 x10^6/uL (4.30-5.70) Hemoglobin 14.0 g/dL (13.0-17.5) 13.3 g/dL (13.0-17.5) Hematocrit 40.3 % (39.0-53.0) 38.6 % (39.0-53.0) Mean Corpuscular Volume 99 fL (79-100) Mean Corpuscular Hemoglobin 34 pg (25-35) Mean Corpuscular Hemoglobin Concent 35 g/dL (31-37) 34 g/dL (31-37) Red Cell Distribution Width 12.5 % (11.5-14.5) Platelet Count 395 x10^3/uL (140-400) Neutrophils (%) (Auto) 57 % (31-73) Lymphocytes (%) (Auto) 32 % (24-48) Monocytes (%) (Auto) 7 % (0-9) Eosinophils (%) (Auto) 3 % (0-3) Basophils (%) (Auto) 1 % (0-3) Neutrophils # (Auto) 4.1 x10^3uL (1.8-7.7) Lymphocytes # (Auto) 2.3 x10^3/uL (1.0-4.8) Monocytes # (Auto) 0.5 x10^3/uL (0.0-1.1) Eosinophils # (Auto) 0.2 x10^3/uL (0.0-0.7) Basophils # (Auto) 0.1 x10^3/uL (0.0-0.2) Prothrombin Time 14.3 SEC (11.7-14.0) Prothromb Time International Ratio 1.2 (0.8-1.1) Activated Partial Thromboplast Time 28 SEC (24-38) Ethyl Alcohol Level 67 mg/dL (0-10) Urine Collection Type Unknown Urine Color Yellow Urine Clarity Clear Urine pH 6.0 Urine Specific [place] <=1.005 Urine Protein Negative mg/dL (NEG-TRACE) Urine Glucose (UA) Negative mg/dL (NEG) Urine Ketones (Stick) Negative mg/dL (NEG) Urine Blood Negative (NEG) Urine Nitrite Negative (NEG) Urine Bilirubin Negative (NEG) Urine Urobilinogen Dipstick 0.2 mg/dL (0.2 mg/dL) Urine Leukocyte Esterase Negative (NEG) Urine RBC 0 /HPF (0-2) Urine WBC 0 /HPF (0-4) Urine Bacteria 0 /HPF (0-FEW) Urine Opiates Screen Neg (NEG) Urine Methadone Screen Neg (NEG) Urine Barbiturates Neg (NEG) Urine Phencyclidine Screen Neg (NEG) Urine Amphetamine/Methamphetamine Neg (NEG) Urine Benzodiazepines Screen Neg (NEG) Urine Cocaine Screen Neg (NEG) Urine Cannabinoids Screen Neg (NEG) Urine Ethyl Alcohol Pos (NEG) Test 04/19/17 03:48 White Blood Count 13.2 x10^3/uL (4.0-11.0) Red Blood Count 3.86 x10^6/uL (4.30-5.70) Hemoglobin 12.8 g/dL (13.0-17.5) Hematocrit 38.0 % (39.0-53.0) Mean Corpuscular Volume 99 fL (79-100) Mean Corpuscular Hemoglobin 33 pg (25-35) Mean Corpuscular Hemoglobin Concent 34 g/dL (31-37) Red Cell Distribution Width 13.0 % (11.5-14.5) Platelet Count 354 x10^3/uL (140-400) Neutrophils (%) (Auto) 91 % (31-73) Lymphocytes (%) (Auto) 6 % (24-48) Monocytes (%) (Auto) 4 % (0-9) Eosinophils (%) (Auto) 0 % (0-3) Basophils (%) (Auto) 0 % (0-3) Neutrophils # (Auto) 12.0 x10^3uL (1.8-7.7) Lymphocytes # (Auto) 0.7 x10^3/uL (1.0-4.8) Monocytes # (Auto) 0.5 x10^3/uL (0.0-1.1) Eosinophils # (Auto) 0.0 x10^3/uL (0.0-0.7) Basophils # (Auto) 0.0 x10^3/uL (0.0-0.2) Segmented Neutrophils % 77 % (35-66) Band Neutrophils % 12 % (0-9) Lymphocytes % 7 % (24-48) Monocytes % 4 % (0-10) Platelet Estimate Adequate (ADEQUATE) Prothrombin Time 13.2 SEC (11.7-14.0) Prothromb Time International Ratio 1.1 (0.8-1.1) Laboratory Tests Test 04/18/17 16:58 04/18/17 17:05 04/18/17 17:20 04/18/17 23:56 Sodium Level 136 mmol/L (136-145) Potassium Level 4.1 mmol/L (3.5-5.1) Chloride Level 101 mmol/L (98-107) Carbon Dioxide Level 26 mmol/L (21-32) Anion Gap 9 (6-14) Blood Urea Nitrogen 11 mg/dL (8-26) Creatinine 0.9 mg/dL (0.7-1.3) Estimated GFR (Cockcroft-Gault) 81.6 BUN/Creatinine Ratio 12 (6-20) Glucose Level 76 mg/dL (70-99) Calcium Level 8.1 mg/dL (8.5-10.1) Total Bilirubin 0.3 mg/dL (0.2-1.0) Aspartate Amino Transf (AST/SGOT) 36 U/L (15-37) Alanine Aminotransferase (ALT/SGPT) 65 U/L (16-63) Alkaline Phosphatase 76 U/L (46-116) Total Protein 7.8 g/dL (6.4-8.2) Albumin 3.0 g/dL (3.4-5.0) Albumin/Globulin Ratio 0.6 (1.0-1.7) Lipase 226 U/L (73-393) White Blood Count 7.1 x10^3/uL (4.0-11.0) Red Blood Count 4.09 x10^6/uL (4.30-5.70) Hemoglobin 14.0 g/dL (13.0-17.5) 13.3 g/dL (13.0-17.5) Hematocrit 40.3 % (39.0-53.0) 38.6 % (39.0-53.0) Mean Corpuscular Volume 99 fL (79-100) Mean Corpuscular Hemoglobin 34 pg (25-35) Mean Corpuscular Hemoglobin Concent 35 g/dL (31-37) 34 g/dL (31-37) Red Cell Distribution Width 12.5 % (11.5-14.5) Platelet Count 395 x10^3/uL (140-400) Neutrophils (%) (Auto) 57 % (31-73) Lymphocytes (%) (Auto) 32 % (24-48) Monocytes (%) (Auto) 7 % (0-9) Eosinophils (%) (Auto) 3 % (0-3) Basophils (%) (Auto) 1 % (0-3) Neutrophils # (Auto) 4.1 x10^3uL (1.8-7.7) Lymphocytes # (Auto) 2.3 x10^3/uL (1.0-4.8) Monocytes # (Auto) 0.5 x10^3/uL (0.0-1.1) Eosinophils # (Auto) 0.2 x10^3/uL (0.0-0.7) Basophils # (Auto) 0.1 x10^3/uL (0.0-0.2) Prothrombin Time 14.3 SEC (11.7-14.0) Prothromb Time International Ratio 1.2 (0.8-1.1) Activated Partial Thromboplast Time 28 SEC (24-38) Ethyl Alcohol Level 67 mg/dL (0-10) Urine Collection Type Unknown Urine Color Yellow Urine Clarity Clear Urine pH 6.0 Urine Specific [place] <=1.005 Urine Protein Negative mg/dL (NEG-TRACE) Urine Glucose (UA) Negative mg/dL (NEG) Urine Ketones (Stick) Negative mg/dL (NEG) Urine Blood Negative (NEG) Urine Nitrite Negative (NEG) Urine Bilirubin Negative (NEG) Urine Urobilinogen Dipstick 0.2 mg/dL (0.2 mg/dL) Urine Leukocyte Esterase Negative (NEG) Urine RBC 0 /HPF (0-2) Urine WBC 0 /HPF (0-4) Urine Bacteria 0 /HPF (0-FEW) Urine Opiates Screen Neg (NEG) Urine Methadone Screen Neg (NEG) Urine Barbiturates Neg (NEG) Urine Phencyclidine Screen Neg (NEG) Urine Amphetamine/Methamphetamine Neg (NEG) Urine Benzodiazepines Screen Neg (NEG) Urine Cocaine Screen Neg (NEG) Urine Cannabinoids Screen Neg (NEG) Urine Ethyl Alcohol Pos (NEG) Test 04/19/17 03:48 White Blood Count 13.2 x10^3/uL (4.0-11.0) Red Blood Count 3.86 x10^6/uL (4.30-5.70) Hemoglobin 12.8 g/dL (13.0-17.5) Hematocrit 38.0 % (39.0-53.0) Mean Corpuscular Volume 99 fL (79-100) Mean Corpuscular Hemoglobin 33 pg (25-35) Mean Corpuscular Hemoglobin Concent 34 g/dL (31-37) Red Cell Distribution Width 13.0 % (11.5-14.5) Platelet Count 354 x10^3/uL (140-400) Neutrophils (%) (Auto) 91 % (31-73) Lymphocytes (%) (Auto) 6 % (24-48) Monocytes (%) (Auto) 4 % (0-9) Eosinophils (%) (Auto) 0 % (0-3) Basophils (%) (Auto) 0 % (0-3) Neutrophils # (Auto) 12.0 x10^3uL (1.8-7.7) Lymphocytes # (Auto) 0.7 x10^3/uL (1.0-4.8) Monocytes # (Auto) 0.5 x10^3/uL (0.0-1.1) Eosinophils # (Auto) 0.0 x10^3/uL (0.0-0.7) Basophils # (Auto) 0.0 x10^3/uL (0.0-0.2) Segmented Neutrophils % 77 % (35-66) Band Neutrophils % 12 % (0-9) Lymphocytes % 7 % (24-48) Monocytes % 4 % (0-10) Platelet Estimate Adequate (ADEQUATE) Prothrombin Time 13.2 SEC (11.7-14.0) Prothromb Time International Ratio 1.1 (0.8-1.1) Medications Current Medications Sodium Chloride 1,000 ml @ 1,000 mls/hr 1X ONCE IV Last administered on 04/18 17:14; Start 04/18/17 at 17:00; Stop 04/18/17 at 17:59; Status DC Metronidazole 100 ml @ 100 mls/hr Q8HRS IV Last administered on 04/19/17 14: 08; Start 04/18/17 at 23:00 Piperacillin Sod/ Tazobactam Sod 3.375 gm/Dextrose 50 ml @ 100 mls/hr 1X ONCE IV ; Start 04/18/17 at 17:15; Stop 04/18/17 at 17:44; Status UNV Piperacillin Sod/ Tazobactam Sod (Zosyn) 3.375 gm 1X ONCE IVP Last administered on 04/18/17 17:41; Start 04/18/17 at 17:15; Stop 04/18/17 at 17 :16; Status DC Metronidazole 100 ml @ 100 mls/hr 1X ONCE IV ; Start 04/18/17 at 17:15; Stop 04/18/17 at 18:14; Status DC Sevoflurane (Ultane) 60 ml STK-MED ONCE IH ; Start 04/18/17 at 17:36; Stop at 17:37; Status DC Fentanyl Citrate (Fentanyl 2ml Vial) 100 mcg STK-MED ONCE .ROUTE ; Start at 17:36; Stop 04/18/17 at 17:37; Status DC Neostigmine Methylsulfate (Bloxiverz) 10 mg STK-MED ONCE .ROUTE ; Start at 17:36; Stop 04/18/17 at 17:37; Status DC Succinylcholine Chloride (Anectine) 200 mg STK-MED ONCE .ROUTE ; Start at 17:36; Stop 04/18/17 at 17:37; Status DC Glycopyrrolate (Robinul) 1 mg STK-MED ONCE .ROUTE ; Start 04/18/17 at 17:37; Stop 04/18/17 at 17:38; Status DC Rocuronium [place] (Zemuron) 50 mg STK-MED ONCE .ROUTE ; Start 04/18/17 at 17: 37; Stop 04/18/17 at 17:38; Status DC Propofol 20 ml @ As Directed STK-MED ONCE IV ; Start 04/18/17 at 17:37; Stop 04/18/17 at 17:38; Status DC Lidocaine HCl (Lidocaine Pf 2% Vial) 5 ml STK-MED ONCE .ROUTE ; Start 04/18/17 at 17:37; Stop 04/18/17 at 17:38; Status DC Dexamethasone Sodium Phosphate (Decadron) 20 mg STK-MED ONCE .ROUTE ; Start at 17:37; Stop 04/18/17 at 17:38; Status DC Ondansetron HCl (Zofran) 4 mg STK-MED ONCE .ROUTE ; Start 04/18/17 at 17:37; Stop 04/18/17 at 17:38; Status DC Tamsulosin HCl (Flomax) 0.4 mg DAILY PO ; Start 04/19/17 at 09:00 Losartan Potassium (Cozaar) 50 mg DAILY PO ; Start 04/19/17 at 09:00 Multivitamins 10 ml/Thiamine HCl 100 mg/Ringer's Solution 1,011 ml @ 250 mls/ hr 1X ONCE IV Last administered on 04/19/17t 01:24; Start 04/18/17 at 19:00 ; Stop 04/18/17 at 23:02; Status DC Ondansetron HCl (Zofran) 4 mg PRN Q6HRS PRN IV NAUSEA/VOMITING; Start at 19:00; Stop 04/18/17 at 22:00; Status DC Fentanyl Citrate (Fentanyl 2ml Vial) 25 mcg PRN Q5MIN PRN IV MILD PAIN; Start 04/18/17 at 19:00; Stop 04/18/17 at 22:00; Status DC Fentanyl Citrate (Fentanyl 2ml Vial) 50 mcg PRN Q5MIN PRN IV MODERATE PAIN; Start 04/18/17 at 19:00; Stop 04/18/17 at 22:00; Status DC Morphine Sulfate 1 mg PRN Q10MIN PRN IV SEVERE PAIN; Start 04/18/17 at 19:00; Stop 04/18/17 at 22:00; Status DC Ringer's Solution 1,000 ml @ 30 mls/hr Q24H IV ; Start 04/18/17 at 18:50; Stop 04/19/17 at 06:49; Status DC Lidocaine HCl (Xylocaine-Mpf 1% Vial) 2 ml 1X PRN PRN ID IV START; Start 04/18 at 19:00; Stop 04/18/17 at 22:00; Status DC Hydromorphone HCl (Dilaudid) 0.5 mg PRN Q10MIN PRN IV SEV PAIN, Second choice; Start 04/18/17 at 19:00; Stop 04/18/17 at 22:00; Status DC Prochlorperazine Edisylate (Compazine) 5 mg PACU PRN PRN IV NAUSEA, MRX1; Start 04/18/17 at 19:00; Stop 04/18/17 at 22:00; Status DC Bupivacaine HCl/ Epinephrine Bitart (Sensorcain-Mpf Epi 0.5%-1:[id number]) 30 ml STK -MED ONCE .ROUTE ; Start 04/18/17 at 19:16; Stop 04/18/17 at 19:17; Status DC Fentanyl Citrate (Fentanyl 2ml Vial) 100 mcg STK-MED ONCE .ROUTE ; Start at 19:49; Stop 04/18/17 at 19:50; Status DC Phenylephrine HCl 1 mg STK-MED ONCE IV ; Start 04/18/17 at 20:04; Stop at 20:05; Status DC Cellulose 1 each STK-MED ONCE .ROUTE Last administered on 04/18/17 21:07; Start 04/18/17 at 20:35; Stop 04/18/17 at 20:36; Status DC Cellulose 1 each STK-MED ONCE .ROUTE ; Start 04/18/17 at 21:26; Stop 04/18/17 at 21:27; Status DC Hydromorphone HCl 30 ml @ 0 mls/hr CONT PRN PRN IV PROTOCOL Last administered on 04/18/17 23:53; Start 04/18/17 at 22:30 Morphine Sulfate 2 mg STK-MED ONCE .ROUTE ; Start 04/18/17 at 22:47; Stop at 22:48; Status DC Ondansetron HCl (Zofran) 4 mg PRN Q6HRS PRN IV NAUSEA/VOMITING; Start at 23:00; Stop 04/19/17 at 06:00; Status DC Fentanyl Citrate (Fentanyl 2ml Vial) 25 mcg PRN Q5MIN PRN IV MILD PAIN; Start 04/18/17 at 23:00; Stop 04/19/17 at 01:45; Status DC Fentanyl Citrate (Fentanyl 2ml Vial) 50 mcg PRN Q5MIN PRN IV MODERATE PAIN; Start 04/18/17 at 23:00; Stop 04/19/17 at 01:45; Status DC Morphine Sulfate 1 mg PRN Q10MIN PRN IV SEVERE PAIN Last administered on 22:53; Start 04/18/17 at 23:00; Stop 04/19/17 at 01:45; Status DC Hydromorphone HCl (Dilaudid) 0.5 mg PRN Q10MIN PRN IV SEV PAIN, Second choice Last administered on 04/18/17 23:30; Start 04/18/17 at 23:00; Stop 04/19/17 at 01:45; Status DC Prochlorperazine Edisylate (Compazine) 5 mg PACU PRN PRN IV NAUSEA, MRX1 Last administered on 04/18/17t 22:59; Start 04/18/17 at 23:00; Stop 04/19/17 at 01 :45; Status DC Albuterol/ Ipratropium (Duoneb) 3 ml 1X PACU PRN NEB SEE COMMENTS Last administered on 04/18/17t 23:13; Start 04/18/17 at 23:15; Stop 04/19/17 at 23 :14 Hydralazine HCl (Apresoline) 10 mg 1X PACU PRN PO HYPERTENSION, SEE COMMENTS; Start 04/18/17 at 23:30; Stop 04/19/17 at 01:45; Status DC Labetalol HCl (Normodyne) 20 mg PRN Q2HR PRN IVP HYPERTENSION, SEE COMMENTS; Start 04/19/17 at 01:45 Active Scripts Active Reported [Ranitidine] PO [Flomax] PO [Losartan] PO DAILY [Vitamin] 1 PO DAILY [Aspirin] Mg PO DAILY Vitals/I & O Vital Sign - Last 24 Hours 04/18/17 04/18/17 04/18/17 04/18/17 16:36 17:44 18:14 19:03 Temp 97.9 98.8 97.9 98.8 Pulse 54 52 54 54 Resp 24 20 20 18 B/P (MAP) 140/81 (100) 144/81 (102) 171/84 (113) 149/77 Pulse Ox 97 97 99 98 O2 Delivery Room Air Room Air Room Air Room Air 04/18/17 04/18/17 04/18/17 04/18/17 22:29 22:29 22:44 22:53 Temp 98.1 98.1 Pulse 71 64 Resp 20 24 18 B/P (MAP) 168/80 177/89 Pulse Ox 96 100 98 O2 Delivery Simple Mask Mask Simple Mask Simple Mask O2 Flow Rate 10 10 10 10.0 04/18/17 04/18/17 04/18/17 04/18/17 22:59 23:14 23:14 23:29 Pulse 64 74 68 Resp 22 24 21 B/P (MAP) 170/79 193/101 160/89 Pulse Ox 96 94 95 96 O2 Delivery Room Air Room Air Room Air Room Air 11/13/17 11/13/17 11/13/17 11/13/17 23:30 23:44 23:53 23:59 Temp 98.5 98.5 Pulse 74 74 Resp 24 21 18 20 B/P (MAP) 163/69 161/74 Pulse Ox 97 96 93 96 O2 Delivery Room Air Room Air Room Air Room Air 04/19/17 04/19/17 04/19/17 04/19/17 00:14 00:20 00:23 01:00 Temp 96.6 96.6 96.6 96.6 Pulse 69 75 75 Resp 20 18 16 18 B/P (MAP) 173/70 185/99 (127) 185/99 (127) Pulse Ox 96 96 96 96 O2 Delivery Room Air Room Air Room Air Nasal Cannula O2 Flow Rate 10.0 04/19/17 04/19/17 04/19/17 04/19/17 01:15 01:30 01:45 02:00 Pulse 83 80 69 70 B/P (MAP) 173/95 (121) 168/94 (118) 164/89 (114) 157/92 (113) Pulse Ox 95 94 96 95 O2 Delivery Nasal Cannula Nasal Cannula O2 Flow Rate 10.0 10.0 04/19/17 04/19/17 04/19/17 04/19/17 02:30 03:00 03:27 04:00 Temp 96.6 96.6 Pulse 77 77 75 Resp 18 B/P (MAP) 148/90 (109) 148/90 (109) 162/108 (126) Pulse Ox 96 98 96 O2 Delivery Room Air Room Air 04/19/17 04/19/17 05:00 07:00 Temp 98.4 98.4 Pulse 68 85 Resp 18 B/P (MAP) 158/74 (102) 146/64 (91) Pulse Ox 88 94 O2 Delivery Room Air Intake and Output 04/18/17 04/18/17 04/19/17 15:00 23:00 07:00 Intake Total 3750 ml 825 ml Output Total 2300 ml 1565 ml Balance 1450 ml -740 ml HERMINIO BUTLER MD Apr 19, 2017 15:21
[2017-04-19] MEDS ORDERED: hydrALAZINE 20 MG/ML VIAL. IVP PRN (15:30)
[2017-04-19] MEDS ORDERED: traMADol 50 MG TABLET PO PRN (15:30)
[2017-04-19] MEDS ORDERED: ACETAMINOPHEN 325 MG TABLET. PO PRN (15:30)
[2017-04-19] MEDS ORDERED: MORPHINE SULFATE 2 MG/ML DISP.SYRIN. IV PRN (15:30)
[2017-04-19] MEDS ORDERED: DOCUSATE SODIUM 100 MG CAPSULE. PO PRN (15:30)
[2017-04-19] MEDS: AMINO AC 3%/ELECTROLYTE/GLYCER 1,000 ML IV SCH ×2 (15:30→16:11)
[2017-04-19] MEDS ORDERED: MULTIVIT INFUSN ADULT K IV SCH (16:00)
[2017-04-19] MEDS ORDERED: [UNRECOGNIZED DRUG - OTHER] IV SCH (16:00)
[2017-04-19] MEDS ORDERED: THIAMINE IV SCH (16:00)
[2017-04-19] MEDS: MULTIVIT INFUSN,ADULT 4,VIT K 10 ML, THIAMINE 100 MG, FOLIC ACID 1 MG in IV DEXTROSE 5%... IV SCH (16:11)
[2017-04-19] MEDS: ENOXAPARIN 40 MG/0.4 ML SYRINGE. SQ SCH (16:20)
[2017-04-19] MEDS: FAMOTIDINE 20 MG/2 ML VIAL IVP SCH (21:59)
[2017-04-20 03:00] VITALS: BP 144/72
[2017-04-20] MEDS: AMINO AC 3%/ELECTROLYTE/GLYCER 1,000 ML IV SCH ×2 (04:26→16:13)
[2017-04-20 04:46] LABS: BASO # 0.1 x10^3/uL (0.0-0.2); BASO % 1 % (0-3); EOS % 0 % (0-3); HEMOGLOBIN 12.5 g/dL (13.0-17.5); LYMPH # 2.2 x10^3/uL (1.0-4.8); LYMPH % 16 % (24-48); MEAN CORPUSCULAR HEMOGLOBIN 34 pg (25-35); MEAN CORPUSCULAR HGB CONC 35 g/dL (31-37); MEAN CORPUSCULAR VOLUME 97 fL (79-100); MONO % 7 % (0-9); NEUT % 77 % (31-73); PLATELET COUNT 370 x10^3/uL (140-400); RED BLOOD COUNT 3.72 x10^6/uL (4.30-5.70); RED CELL DISTRIBUTION WIDTH 12.7 % (11.5-14.5); WHITE BLOOD COUNT 14.2 x10^3/uL (4.0-11.0)
[2017-04-20 05:04] LABS: CALCIUM 8.3 mg/dL (8.5-10.1); CREATININE 0.8 mg/dL (0.7-1.3); GFR 93.5; MAGNESIUM 2.1 mg/dL (1.8-2.4); PHOSPHORUS 2.1 mg/dL (2.6-4.7); POTASSIUM 3.8 mmol/L (3.5-5.1)
[2017-04-20 07:00] VITALS: BP 150/83
[2017-04-20] MEDS: TAMSULOSIN 0.4 MG CAP.ER.24H. PO SCH ×2 (07:29→09:01)
[2017-04-20] MEDS: LOSARTAN POTASSIUM 50 MG TABLET. PO SCH ×2 (07:29→09:01)
--- NOTE | 2017-04-20 07:32 | PDOC ---
PROGRESS NOTES Subjective Subjective thirsty Objective Objective Vital Signs Date Time Temp Pulse Resp B/P (MAP) Pulse Ox O2 Delivery O2 Flow Rate FiO2 04/20/17 03:00 98.4 59 18 144/72 (96) 96 Room Air 98.4 04/19/17 01:30 10.0 Intake and Output 04/20/17 07:00 Intake Total 0 ml Output Total 2465 ml Balance -2465 ml Intake Oral 0 ml Output Urine Total 2200 ml Drainage Total 265 ml Physical Exam Physical Exam abdomen mildly distended, LIT serosang Assessment Assessment Problems Medical Problems: (1) ETOH abuse Status: Acute Plan Plan of Care Begin clears Comment Review of Relevant I have reviewed the following items nika (where applicable) has been applied. Labs Laboratory Tests Test 04/18/17 16:58 04/18/17 17:05 04/18/17 17:20 04/18/17 23:56 Sodium Level 136 mmol/L (136-145) Potassium Level 4.1 mmol/L (3.5-5.1) Chloride Level 101 mmol/L (98-107) Carbon Dioxide Level 26 mmol/L (21-32) Anion Gap 9 (6-14) Blood Urea Nitrogen 11 mg/dL (8-26) Creatinine 0.9 mg/dL (0.7-1.3) Estimated GFR (Cockcroft-Gault) 81.6 BUN/Creatinine Ratio 12 (6-20) Glucose Level 76 mg/dL (70-99) Calcium Level 8.1 mg/dL (8.5-10.1) Total Bilirubin 0.3 mg/dL (0.2-1.0) Aspartate Amino Transf (AST/SGOT) 36 U/L (15-37) Alanine Aminotransferase (ALT/SGPT) 65 U/L (16-63) Alkaline Phosphatase 76 U/L (46-116) Total Protein 7.8 g/dL (6.4-8.2) Albumin 3.0 g/dL (3.4-5.0) Albumin/Globulin Ratio 0.6 (1.0-1.7) Lipase 226 U/L (73-393) White Blood Count 7.1 x10^3/uL (4.0-11.0) Red Blood Count 4.09 x10^6/uL (4.30-5.70) Hemoglobin 14.0 g/dL (13.0-17.5) 13.3 g/dL (13.0-17.5) Hematocrit 40.3 % (39.0-53.0) 38.6 % (39.0-53.0) Mean Corpuscular Volume 99 fL (79-100) Mean Corpuscular Hemoglobin 34 pg (25-35) Mean Corpuscular Hemoglobin Concent 35 g/dL (31-37) 34 g/dL (31-37) Red Cell Distribution Width 12.5 % (11.5-14.5) Platelet Count 395 x10^3/uL (140-400) Neutrophils (%) (Auto) 57 % (31-73) Lymphocytes (%) (Auto) 32 % (24-48) Monocytes (%) (Auto) 7 % (0-9) Eosinophils (%) (Auto) 3 % (0-3) Basophils (%) (Auto) 1 % (0-3) Neutrophils # (Auto) 4.1 x10^3uL (1.8-7.7) Lymphocytes # (Auto) 2.3 x10^3/uL (1.0-4.8) Monocytes # (Auto) 0.5 x10^3/uL (0.0-1.1) Eosinophils # (Auto) 0.2 x10^3/uL (0.0-0.7) Basophils # (Auto) 0.1 x10^3/uL (0.0-0.2) Prothrombin Time 14.3 SEC (11.7-14.0) Prothromb Time International Ratio 1.2 (0.8-1.1) Activated Partial Thromboplast Time 28 SEC (24-38) Ethyl Alcohol Level 67 mg/dL (0-10) Urine Collection Type Unknown Urine Color Yellow Urine Clarity Clear Urine pH 6.0 Urine Specific [place] <=1.005 Urine Protein Negative mg/dL (NEG-TRACE) Urine Glucose (UA) Negative mg/dL (NEG) Urine Ketones (Stick) Negative mg/dL (NEG) Urine Blood Negative (NEG) Urine Nitrite Negative (NEG) Urine Bilirubin Negative (NEG) Urine Urobilinogen Dipstick 0.2 mg/dL (0.2 mg/dL) Urine Leukocyte Esterase Negative (NEG) Urine RBC 0 /HPF (0-2) Urine WBC 0 /HPF (0-4) Urine Bacteria 0 /HPF (0-FEW) Urine Opiates Screen Neg (NEG) Urine Methadone Screen Neg (NEG) Urine Barbiturates Neg (NEG) Urine Phencyclidine Screen Neg (NEG) Urine Amphetamine/Methamphetamine Neg (NEG) Urine Benzodiazepines Screen Neg (NEG) Urine Cocaine Screen Neg (NEG) Urine Cannabinoids Screen Neg (NEG) Urine Ethyl Alcohol Pos (NEG) Test 04/19/17 03:48 04/20/17 04:25 White Blood Count 13.2 x10^3/uL (4.0-11.0) 14.2 x10^3/uL (4.0-11.0) Red Blood Count 3.86 x10^6/uL (4.30-5.70) 3.72 x10^6/uL (4.30-5.70) Hemoglobin 12.8 g/dL (13.0-17.5) 12.5 g/dL (13.0-17.5) Hematocrit 38.0 % (39.0-53.0) 36.0 % (39.0-53.0) Mean Corpuscular Volume 99 fL (79-100) 97 fL (79-100) Mean Corpuscular Hemoglobin 33 pg (25-35) 34 pg (25-35) Mean Corpuscular Hemoglobin Concent 34 g/dL (31-37) 35 g/dL (31-37) Red Cell Distribution Width 13.0 % (11.5-14.5) 12.7 % (11.5-14.5) Platelet Count 354 x10^3/uL (140-400) 370 x10^3/uL (140-400) Neutrophils (%) (Auto) 91 % (31-73) 77 % (31-73) Lymphocytes (%) (Auto) 6 % (24-48) 16 % (24-48) Monocytes (%) (Auto) 4 % (0-9) 7 % (0-9) Eosinophils (%) (Auto) 0 % (0-3) 0 % (0-3) Basophils (%) (Auto) 0 % (0-3) 1 % (0-3) Neutrophils # (Auto) 12.0 x10^3uL (1.8-7.7) 10.9 x10^3uL (1.8-7.7) Lymphocytes # (Auto) 0.7 x10^3/uL (1.0-4.8) 2.2 x10^3/uL (1.0-4.8) Monocytes # (Auto) 0.5 x10^3/uL (0.0-1.1) 1.0 x10^3/uL (0.0-1.1) Eosinophils # (Auto) 0.0 x10^3/uL (0.0-0.7) 0.0 x10^3/uL (0.0-0.7) Basophils # (Auto) 0.0 x10^3/uL (0.0-0.2) 0.1 x10^3/uL (0.0-0.2) Segmented Neutrophils % 77 % (35-66) Band Neutrophils % 12 % (0-9) Lymphocytes % 7 % (24-48) Monocytes % 4 % (0-10) Platelet Estimate Adequate (ADEQUATE) Prothrombin Time 13.2 SEC (11.7-14.0) Prothromb Time International Ratio 1.1 (0.8-1.1) Sodium Level 134 mmol/L (136-145) Potassium Level 3.8 mmol/L (3.5-5.1) Chloride Level 104 mmol/L (98-107) Carbon Dioxide Level 24 mmol/L (21-32) Anion Gap 6 (6-14) Blood Urea Nitrogen 10 mg/dL (8-26) Creatinine 0.8 mg/dL (0.7-1.3) Estimated GFR (Cockcroft-Gault) 93.5 Glucose Level 147 mg/dL (70-99) Calcium Level 8.3 mg/dL (8.5-10.1) Phosphorus Level 2.1 mg/dL (2.6-4.7) Magnesium Level 2.1 mg/dL (1.8-2.4) Laboratory Tests Test 04/20/17 04:25 White Blood Count 14.2 x10^3/uL (4.0-11.0) Red Blood Count 3.72 x10^6/uL (4.30-5.70) Hemoglobin 12.5 g/dL (13.0-17.5) Hematocrit 36.0 % (39.0-53.0) Mean Corpuscular Volume 97 fL (79-100) Mean Corpuscular Hemoglobin 34 pg (25-35) Mean Corpuscular Hemoglobin Concent 35 g/dL (31-37) Red Cell Distribution Width 12.7 % (11.5-14.5) Platelet Count 370 x10^3/uL (140-400) Neutrophils (%) (Auto) 77 % (31-73) Lymphocytes (%) (Auto) 16 % (24-48) Monocytes (%) (Auto) 7 % (0-9) Eosinophils (%) (Auto) 0 % (0-3) Basophils (%) (Auto) 1 % (0-3) Neutrophils # (Auto) 10.9 x10^3uL (1.8-7.7) Lymphocytes # (Auto) 2.2 x10^3/uL (1.0-4.8) Monocytes # (Auto) 1.0 x10^3/uL (0.0-1.1) Eosinophils # (Auto) 0.0 x10^3/uL (0.0-0.7) Basophils # (Auto) 0.1 x10^3/uL (0.0-0.2) Sodium Level 134 mmol/L (136-145) Potassium Level 3.8 mmol/L (3.5-5.1) Chloride Level 104 mmol/L (98-107) Carbon Dioxide Level 24 mmol/L (21-32) Anion Gap 6 (6-14) Blood Urea Nitrogen 10 mg/dL (8-26) Creatinine 0.8 mg/dL (0.7-1.3) Estimated GFR (Cockcroft-Gault) 93.5 Glucose Level 147 mg/dL (70-99) Calcium Level 8.3 mg/dL (8.5-10.1) Phosphorus Level 2.1 mg/dL (2.6-4.7) Magnesium Level 2.1 mg/dL (1.8-2.4) Medications Current Medications Sodium Chloride 1,000 ml @ 1,000 mls/hr 1X ONCE IV Last administered on 04/18 17:14; Start 04/18/17 at 17:00; Stop 04/18/17 at 17:59; Status DC Metronidazole 100 ml @ 100 mls/hr Q8HRS IV Last administered on 04/20/17 06: 07; Start 04/18/17 at 23:00 Piperacillin Sod/ Tazobactam Sod 3.375 gm/Dextrose 50 ml @ 100 mls/hr 1X ONCE IV ; Start 04/18/17 at 17:15; Stop 04/18/17 at 17:44; Status UNV Piperacillin Sod/ Tazobactam Sod (Zosyn) 3.375 gm 1X ONCE IVP Last administered on 04/18/17t 17:41; Start 04/18/17 at 17:15; Stop 04/18/17 at 17 :16; Status DC Metronidazole 100 ml @ 100 mls/hr 1X ONCE IV ; Start 04/18/17 at 17:15; Stop 04/18/17 at 18:14; Status DC Sevoflurane (Ultane) 60 ml STK-MED ONCE IH ; Start 04/18/17 at 17:36; Stop at 17:37; Status DC Fentanyl Citrate (Fentanyl 2ml Vial) 100 mcg STK-MED ONCE .ROUTE ; Start at 17:36; Stop 04/18/17 at 17:37; Status DC Neostigmine Methylsulfate (Bloxiverz) 10 mg STK-MED ONCE .ROUTE ; Start at 17:36; Stop 04/18/17 at 17:37; Status DC Succinylcholine Chloride (Anectine) 200 mg STK-MED ONCE .ROUTE ; Start at 17:36; Stop 04/18/17 at 17:37; Status DC Glycopyrrolate (Robinul) 1 mg STK-MED ONCE .ROUTE ; Start 04/18/17 at 17:37; Stop 04/18/17 at 17:38; Status DC Rocuronium Castell (Zemuron) 50 mg STK-MED ONCE .ROUTE ; Start 04/18/17 at 17: 37; Stop 04/18/17 at 17:38; Status DC Propofol 20 ml @ As Directed STK-MED ONCE IV ; Start 04/18/17 at 17:37; Stop 04/18/17 at 17:38; Status DC Lidocaine HCl (Lidocaine Pf 2% Vial) 5 ml STK-MED ONCE .ROUTE ; Start 04/18/17 at 17:37; Stop 04/18/17 at 17:38; Status DC Dexamethasone Sodium Phosphate (Decadron) 20 mg STK-MED ONCE .ROUTE ; Start at 17:37; Stop 04/18/17 at 17:38; Status DC Ondansetron HCl (Zofran) 4 mg STK-MED ONCE .ROUTE ; Start 04/18/17 at 17:37; Stop 04/18/17 at 17:38; Status DC Tamsulosin HCl (Flomax) 0.4 mg DAILY PO ; Start 04/19/17 at 09:00 Losartan Potassium (Cozaar) 50 mg DAILY PO ; Start 04/19/17 at 09:00 Multivitamins 10 ml/Thiamine HCl 100 mg/Ringer's Solution 1,011 ml @ 250 mls/ hr 1X ONCE IV Last administered on 04/19/17t 01:24; Start 04/18/17 at 19:00 ; Stop 04/18/17 at 23:02; Status DC Ondansetron HCl (Zofran) 4 mg PRN Q6HRS PRN IV NAUSEA/VOMITING; Start at 19:00; Stop 04/18/17 at 22:00; Status DC Fentanyl Citrate (Fentanyl 2ml Vial) 25 mcg PRN Q5MIN PRN IV MILD PAIN; Start 04/18/17 at 19:00; Stop 04/18/17 at 22:00; Status DC Fentanyl Citrate (Fentanyl 2ml Vial) 50 mcg PRN Q5MIN PRN IV MODERATE PAIN; Start 04/18/17 at 19:00; Stop 04/18/17 at 22:00; Status DC Morphine Sulfate 1 mg PRN Q10MIN PRN IV SEVERE PAIN; Start 04/18/17 at 19:00; Stop 04/18/17 at 22:00; Status DC Ringer's Solution 1,000 ml @ 30 mls/hr Q24H IV ; Start 04/18/17 at 18:50; Stop 04/19/17 at 06:49; Status DC Lidocaine HCl (Xylocaine-Mpf 1% Vial) 2 ml 1X PRN PRN ID IV START; Start 04/18 at 19:00; Stop 04/18/17 at 22:00; Status DC Hydromorphone HCl (Dilaudid) 0.5 mg PRN Q10MIN PRN IV SEV PAIN, Second choice; Start 04/18/17 at 19:00; Stop 04/18/17 at 22:00; Status DC Prochlorperazine Edisylate (Compazine) 5 mg PACU PRN PRN IV NAUSEA, MRX1; Start 04/18/17 at 19:00; Stop 04/18/17 at 22:00; Status DC Bupivacaine HCl/ Epinephrine Bitart (Sensorcain-Mpf Epi 0.5%-1:[id number]) 30 ml STK -MED ONCE .ROUTE ; Start 04/18/17 at 19:16; Stop 04/18/17 at 19:17; Status DC Fentanyl Citrate (Fentanyl 2ml Vial) 100 mcg STK-MED ONCE .ROUTE ; Start at 19:49; Stop 04/18/17 at 19:50; Status DC Phenylephrine HCl 1 mg STK-MED ONCE IV ; Start 04/18/17 at 20:04; Stop at 20:05; Status DC Cellulose 1 each STK-MED ONCE .ROUTE Last administered on 04/18/17t 21:07; Start 04/18/17 at 20:35; Stop 04/18/17 at 20:36; Status DC Cellulose 1 each STK-MED ONCE .ROUTE ; Start 04/18/17 at 21:26; Stop 04/18/17 at 21:27; Status DC Hydromorphone HCl 30 ml @ 0 mls/hr CONT PRN PRN IV PROTOCOL Last administered on 04/18/17t 23:53; Start 04/18/17 at 22:30 Morphine Sulfate 2 mg STK-MED ONCE .ROUTE ; Start 04/18/17 at 22:47; Stop at 22:48; Status DC Ondansetron HCl (Zofran) 4 mg PRN Q6HRS PRN IV NAUSEA/VOMITING; Start at 23:00; Stop 04/19/17 at 06:00; Status DC Fentanyl Citrate (Fentanyl 2ml Vial) 25 mcg PRN Q5MIN PRN IV MILD PAIN; Start 04/18/17 at 23:00; Stop 04/19/17 at 01:45; Status DC Fentanyl Citrate (Fentanyl 2ml Vial) 50 mcg PRN Q5MIN PRN IV MODERATE PAIN; Start 04/18/17 at 23:00; Stop 04/19/17 at 01:45; Status DC Morphine Sulfate 1 mg PRN Q10MIN PRN IV SEVERE PAIN Last administered on 22:53; Start 04/18/17 at 23:00; Stop 04/19/17 at 01:45; Status DC Hydromorphone HCl (Dilaudid) 0.5 mg PRN Q10MIN PRN IV SEV PAIN, Second choice Last administered on 04/18/17 23:30; Start 04/18/17 at 23:00; Stop 04/19/17 at 01:45; Status DC Prochlorperazine Edisylate (Compazine) 5 mg PACU PRN PRN IV NAUSEA, MRX1 Last administered on 04/18/17 22:59; Start 04/18/17 at 23:00; Stop 04/19/17 at 01 :45; Status DC Albuterol/ Ipratropium (Duoneb) 3 ml 1X PACU PRN NEB SEE COMMENTS Last administered on 04/18/17 23:13; Start 04/18/17 at 23:15; Stop 04/19/17 at 23 :14; Status DC Hydralazine HCl (Apresoline) 10 mg 1X PACU PRN PO HYPERTENSION, SEE COMMENTS; Start 04/18/17 at 23:30; Stop 04/19/17 at 01:45; Status DC Labetalol HCl (Normodyne) 20 mg PRN Q2HR PRN IVP HYPERTENSION, SEE COMMENTS; Start 04/19/17 at 01:45; Stop 04/19/17 at 15:19; Status DC Acetaminophen (Tylenol) 650 mg PRN Q6HRS PRN PO FEVER; Start 04/19/17 at 15:30 Ondansetron HCl (Zofran) 4 mg PRN Q6HRS PRN IV NAUSEA/VOMITING; Start at 15:30 Morphine Sulfate 2 mg PRN Q2HR PRN IV PAIN; Start 04/19/17 at 15:30 Tramadol HCl (Ultram) 50 mg PRN Q6HRS PRN PO PAIN; Start 04/19/17 at 15:30 Hydralazine HCl (Apresoline Inj) 10 mg PRN Q4HRS PRN IVP ELEVATED BP, SEE COMMENTS Last administered on 04/19/17 16:15; Start 04/19/17 at 15:30 Docusate Sodium (Colace) 100 mg PRN DAILY PRN PO CONSTIPATION; Start 04/19/17 at 15:30 Lorazepam (Ativan) 2 mg PRN Q4HRS PRN IV ANXIETY / AGITATION; Start 04/19/17 at 15:30 Multivitamins 10 ml/Thiamine HCl 100 mg/Dextrose/ Lactated Ringer's 1,011 ml @ 100 mls/hr Q24H IV ; Start 04/19/17 at 16:00; Stop 04/19/17 at 16:00; Status DC Amino Acids/ Glycerin/ Electrolytes 1,000 ml @ 80 mls/hr [id number] IV Last administered on 04/20/17 04:26; Start 04/19/17 at 15:30 Enoxaparin Sodium (Lovenox 40mg Syringe) 40 mg Q24H SQ Last administered on 16:20; Start 04/19/17 at 15:30 Famotidine (Pepcid Vial) 20 mg QHS IVP Last administered on 04/19/17 21:59; Start 04/19/17 at 21:00 Multivitamins 10 ml/Thiamine HCl 100 mg/Folic Acid 1 mg/Dextrose/ Lactated Ringer's 1,011.2 ml @ 100.02 mls/hr Q24H IV Last administered on 04/19/17 16 :11; Start 04/19/17 at 16:00; Stop 04/23/17 at 02:07 Active Scripts Active Reported [Ranitidine] PO [Flomax] PO [Losartan] PO DAILY [Vitamin] 1 PO DAILY [Aspirin] Mg PO DAILY Vitals/I & O Vital Sign - Last 24 Hours 04/19/17 04/19/17 04/19/17 04/19/17 11:00 15:00 16:15 19:00 Temp 98.6 97.6 98.6 98.6 97.6 98.6 Pulse 60 64 62 Resp 18 18 18 B/P (MAP) 156/78 (104) 170/80 (110) 170/89 156/69 (98) Pulse Ox 97 96 95 O2 Delivery Room Air Room Air Room Air 04/19/17 04/19/17 04/20/17 20:00 23:00 03:00 Temp 99.0 98.4 99.0 98.4 Pulse 57 59 Resp 18 18 B/P (MAP) 153/72 (99) 144/72 (96) Pulse Ox 95 96 O2 Delivery Room Air Room Air Room Air Intake and Output 04/19/17 04/19/17 04/20/17 15:00 23:00 07:00 Intake Total 0 ml Output Total 2240 ml 225 ml Balance -2240 ml -225 ml ANA PABON MD Apr 20, 2017 07:31
[2017-04-20] MEDS ORDERED: SODIUM PHOSPHATE 20 MMOL in IV DEXTROSE 5% 250 ML IV ONE (09:00)
[2017-04-20 11:00] VITALS: BP 140/77
--- NOTE | 2017-04-20 13:21 | PDOC ---
PROGRESS NOTES Chief Complaint Chief Complaint acute abdominal pain with acute appendicitis s/p open appendectomy ETOH abuse early COPD, hyperlipids BPH hypophosphatemia mild malnutrition plan: fu with sx clear liquid diet as per sx waiting for bowel function banana bag daily ivf labs tmr dvt , gi ppx NUTRITION SERVICES ASSISTANT for pain control, dc if ok with sx PTOT History of Present Illness History of Present Illness ROS: no fever, chills, sob or chest pain looks weak no flatus or BM post op low greg Vitals Vitals Vital Signs Date Time Temp Pulse Resp B/P (MAP) Pulse Ox O2 Delivery O2 Flow Rate FiO2 04/20/17 11:00 98.6 60 18 140/77 (98) 96 Room Air 98.6 Physical Exam General: Alert, Oriented X3, Cooperative, No acute distress Heart: Regular rate, Normal S1, Normal S2 Lungs: Clear Abdomen: Soft, Other (1 LIT with some sangeous liquid, clean sx wound ,mild tenderness. mild BS) Extremities: No cyanosis, No edema Skin: No rashes, No breakdown Labs LABS Laboratory Tests Test 04/20/17 04:25 White Blood Count 14.2 x10^3/uL (4.0-11.0) Red Blood Count 3.72 x10^6/uL (4.30-5.70) Hemoglobin 12.5 g/dL (13.0-17.5) Hematocrit 36.0 % (39.0-53.0) Mean Corpuscular Volume 97 fL (79-100) Mean Corpuscular Hemoglobin 34 pg (25-35) Mean Corpuscular Hemoglobin Concent 35 g/dL (31-37) Red Cell Distribution Width 12.7 % (11.5-14.5) Platelet Count 370 x10^3/uL (140-400) Neutrophils (%) (Auto) 77 % (31-73) Lymphocytes (%) (Auto) 16 % (24-48) Monocytes (%) (Auto) 7 % (0-9) Eosinophils (%) (Auto) 0 % (0-3) Basophils (%) (Auto) 1 % (0-3) Neutrophils # (Auto) 10.9 x10^3uL (1.8-7.7) Lymphocytes # (Auto) 2.2 x10^3/uL (1.0-4.8) Monocytes # (Auto) 1.0 x10^3/uL (0.0-1.1) Eosinophils # (Auto) 0.0 x10^3/uL (0.0-0.7) Basophils # (Auto) 0.1 x10^3/uL (0.0-0.2) Sodium Level 134 mmol/L (136-145) Potassium Level 3.8 mmol/L (3.5-5.1) Chloride Level 104 mmol/L (98-107) Carbon Dioxide Level 24 mmol/L (21-32) Anion Gap 6 (6-14) Blood Urea Nitrogen 10 mg/dL (8-26) Creatinine 0.8 mg/dL (0.7-1.3) Estimated GFR (Cockcroft-Gault) 93.5 Glucose Level 147 mg/dL (70-99) Calcium Level 8.3 mg/dL (8.5-10.1) Phosphorus Level 2.1 mg/dL (2.6-4.7) Magnesium Level 2.1 mg/dL (1.8-2.4) Assessment and Plan Assessmemt and Plan Problems Medical Problems: (1) ETOH abuse Status: Acute Problems: Comment Review of Relevant I have reviewed the following items nika (where applicable) has been applied. Labs Laboratory Tests Test 04/18/17 16:58 04/18/17 17:05 04/18/17 17:20 04/18/17 23:56 Sodium Level 136 mmol/L (136-145) Potassium Level 4.1 mmol/L (3.5-5.1) Chloride Level 101 mmol/L (98-107) Carbon Dioxide Level 26 mmol/L (21-32) Anion Gap 9 (6-14) Blood Urea Nitrogen 11 mg/dL (8-26) Creatinine 0.9 mg/dL (0.7-1.3) Estimated GFR (Cockcroft-Gault) 81.6 BUN/Creatinine Ratio 12 (6-20) Glucose Level 76 mg/dL (70-99) Calcium Level 8.1 mg/dL (8.5-10.1) Total Bilirubin 0.3 mg/dL (0.2-1.0) Aspartate Amino Transf (AST/SGOT) 36 U/L (15-37) Alanine Aminotransferase (ALT/SGPT) 65 U/L (16-63) Alkaline Phosphatase 76 U/L (46-116) Total Protein 7.8 g/dL (6.4-8.2) Albumin 3.0 g/dL (3.4-5.0) Albumin/Globulin Ratio 0.6 (1.0-1.7) Lipase 226 U/L (73-393) White Blood Count 7.1 x10^3/uL (4.0-11.0) Red Blood Count 4.09 x10^6/uL (4.30-5.70) Hemoglobin 14.0 g/dL (13.0-17.5) 13.3 g/dL (13.0-17.5) Hematocrit 40.3 % (39.0-53.0) 38.6 % (39.0-53.0) Mean Corpuscular Volume 99 fL (79-100) Mean Corpuscular Hemoglobin 34 pg (25-35) Mean Corpuscular Hemoglobin Concent 35 g/dL (31-37) 34 g/dL (31-37) Red Cell Distribution Width 12.5 % (11.5-14.5) Platelet Count 395 x10^3/uL (140-400) Neutrophils (%) (Auto) 57 % (31-73) Lymphocytes (%) (Auto) 32 % (24-48) Monocytes (%) (Auto) 7 % (0-9) Eosinophils (%) (Auto) 3 % (0-3) Basophils (%) (Auto) 1 % (0-3) Neutrophils # (Auto) 4.1 x10^3uL (1.8-7.7) Lymphocytes # (Auto) 2.3 x10^3/uL (1.0-4.8) Monocytes # (Auto) 0.5 x10^3/uL (0.0-1.1) Eosinophils # (Auto) 0.2 x10^3/uL (0.0-0.7) Basophils # (Auto) 0.1 x10^3/uL (0.0-0.2) Prothrombin Time 14.3 SEC (11.7-14.0) Prothromb Time International Ratio 1.2 (0.8-1.1) Activated Partial Thromboplast Time 28 SEC (24-38) Ethyl Alcohol Level 67 mg/dL (0-10) Urine Collection Type Unknown Urine Color Yellow Urine Clarity Clear Urine pH 6.0 Urine Specific [place] <=1.005 Urine Protein Negative mg/dL (NEG-TRACE) Urine Glucose (UA) Negative mg/dL (NEG) Urine Ketones (Stick) Negative mg/dL (NEG) Urine Blood Negative (NEG) Urine Nitrite Negative (NEG) Urine Bilirubin Negative (NEG) Urine Urobilinogen Dipstick 0.2 mg/dL (0.2 mg/dL) Urine Leukocyte Esterase Negative (NEG) Urine RBC 0 /HPF (0-2) Urine WBC 0 /HPF (0-4) Urine Bacteria 0 /HPF (0-FEW) Urine Opiates Screen Neg (NEG) Urine Methadone Screen Neg (NEG) Urine Barbiturates Neg (NEG) Urine Phencyclidine Screen Neg (NEG) Urine Amphetamine/Methamphetamine Neg (NEG) Urine Benzodiazepines Screen Neg (NEG) Urine Cocaine Screen Neg (NEG) Urine Cannabinoids Screen Neg (NEG) Urine Ethyl Alcohol Pos (NEG) Test 04/19/17 03:48 04/20/17 04:25 White Blood Count 13.2 x10^3/uL (4.0-11.0) 14.2 x10^3/uL (4.0-11.0) Red Blood Count 3.86 x10^6/uL (4.30-5.70) 3.72 x10^6/uL (4.30-5.70) Hemoglobin 12.8 g/dL (13.0-17.5) 12.5 g/dL (13.0-17.5) Hematocrit 38.0 % (39.0-53.0) 36.0 % (39.0-53.0) Mean Corpuscular Volume 99 fL (79-100) 97 fL (79-100) Mean Corpuscular Hemoglobin 33 pg (25-35) 34 pg (25-35) Mean Corpuscular Hemoglobin Concent 34 g/dL (31-37) 35 g/dL (31-37) Red Cell Distribution Width 13.0 % (11.5-14.5) 12.7 % (11.5-14.5) Platelet Count 354 x10^3/uL (140-400) 370 x10^3/uL (140-400) Neutrophils (%) (Auto) 91 % (31-73) 77 % (31-73) Lymphocytes (%) (Auto) 6 % (24-48) 16 % (24-48) Monocytes (%) (Auto) 4 % (0-9) 7 % (0-9) Eosinophils (%) (Auto) 0 % (0-3) 0 % (0-3) Basophils (%) (Auto) 0 % (0-3) 1 % (0-3) Neutrophils # (Auto) 12.0 x10^3uL (1.8-7.7) 10.9 x10^3uL (1.8-7.7) Lymphocytes # (Auto) 0.7 x10^3/uL (1.0-4.8) 2.2 x10^3/uL (1.0-4.8) Monocytes # (Auto) 0.5 x10^3/uL (0.0-1.1) 1.0 x10^3/uL (0.0-1.1) Eosinophils # (Auto) 0.0 x10^3/uL (0.0-0.7) 0.0 x10^3/uL (0.0-0.7) Basophils # (Auto) 0.0 x10^3/uL (0.0-0.2) 0.1 x10^3/uL (0.0-0.2) Segmented Neutrophils % 77 % (35-66) Band Neutrophils % 12 % (0-9) Lymphocytes % 7 % (24-48) Monocytes % 4 % (0-10) Platelet Estimate Adequate (ADEQUATE) Prothrombin Time 13.2 SEC (11.7-14.0) Prothromb Time International Ratio 1.1 (0.8-1.1) Sodium Level 134 mmol/L (136-145) Potassium Level 3.8 mmol/L (3.5-5.1) Chloride Level 104 mmol/L (98-107) Carbon Dioxide Level 24 mmol/L (21-32) Anion Gap 6 (6-14) Blood Urea Nitrogen 10 mg/dL (8-26) Creatinine 0.8 mg/dL (0.7-1.3) Estimated GFR (Cockcroft-Gault) 93.5 Glucose Level 147 mg/dL (70-99) Calcium Level 8.3 mg/dL (8.5-10.1) Phosphorus Level 2.1 mg/dL (2.6-4.7) Magnesium Level 2.1 mg/dL (1.8-2.4) Laboratory Tests Test 04/20/17 04:25 White Blood Count 14.2 x10^3/uL (4.0-11.0) Red Blood Count 3.72 x10^6/uL (4.30-5.70) Hemoglobin 12.5 g/dL (13.0-17.5) Hematocrit 36.0 % (39.0-53.0) Mean Corpuscular Volume 97 fL (79-100) Mean Corpuscular Hemoglobin 34 pg (25-35) Mean Corpuscular Hemoglobin Concent 35 g/dL (31-37) Red Cell Distribution Width 12.7 % (11.5-14.5) Platelet Count 370 x10^3/uL (140-400) Neutrophils (%) (Auto) 77 % (31-73) Lymphocytes (%) (Auto) 16 % (24-48) Monocytes (%) (Auto) 7 % (0-9) Eosinophils (%) (Auto) 0 % (0-3) Basophils (%) (Auto) 1 % (0-3) Neutrophils # (Auto) 10.9 x10^3uL (1.8-7.7) Lymphocytes # (Auto) 2.2 x10^3/uL (1.0-4.8) Monocytes # (Auto) 1.0 x10^3/uL (0.0-1.1) Eosinophils # (Auto) 0.0 x10^3/uL (0.0-0.7) Basophils # (Auto) 0.1 x10^3/uL (0.0-0.2) Sodium Level 134 mmol/L (136-145) Potassium Level 3.8 mmol/L (3.5-5.1) Chloride Level 104 mmol/L (98-107) Carbon Dioxide Level 24 mmol/L (21-32) Anion Gap 6 (6-14) Blood Urea Nitrogen 10 mg/dL (8-26) Creatinine 0.8 mg/dL (0.7-1.3) Estimated GFR (Cockcroft-Gault) 93.5 Glucose Level 147 mg/dL (70-99) Calcium Level 8.3 mg/dL (8.5-10.1) Phosphorus Level 2.1 mg/dL (2.6-4.7) Magnesium Level 2.1 mg/dL (1.8-2.4) Medications Current Medications Sodium Chloride 1,000 ml @ 1,000 mls/hr 1X ONCE IV Last administered on 04/18t 17:14; Start 04/18/17 at 17:00; Stop 04/18/17 at 17:59; Status DC Metronidazole 100 ml @ 100 mls/hr Q8HRS IV Last administered on 04/20/17 06: 07; Start 04/18/17 at 23:00 Piperacillin Sod/ Tazobactam Sod 3.375 gm/Dextrose 50 ml @ 100 mls/hr 1X ONCE IV ; Start 04/18/17 at 17:15; Stop 04/18/17 at 17:44; Status UNV Piperacillin Sod/ Tazobactam Sod (Zosyn) 3.375 gm 1X ONCE IVP Last administered on 04/18/17 17:41; Start 04/18/17 at 17:15; Stop 04/18/17 at 17 :16; Status DC Metronidazole 100 ml @ 100 mls/hr 1X ONCE IV ; Start 04/18/17 at 17:15; Stop 04/18/17 at 18:14; Status DC Sevoflurane (Ultane) 60 ml STK-MED ONCE IH ; Start 04/18/17 at 17:36; Stop at 17:37; Status DC Fentanyl Citrate (Fentanyl 2ml Vial) 100 mcg STK-MED ONCE .ROUTE ; Start at 17:36; Stop 04/18/17 at 17:37; Status DC Neostigmine Methylsulfate (Bloxiverz) 10 mg STK-MED ONCE .ROUTE ; Start at 17:36; Stop 04/18/17 at 17:37; Status DC Succinylcholine Chloride (Anectine) 200 mg STK-MED ONCE .ROUTE ; Start at 17:36; Stop 04/18/17 at 17:37; Status DC Glycopyrrolate (Robinul) 1 mg STK-MED ONCE .ROUTE ; Start 04/18/17 at 17:37; Stop 04/18/17 at 17:38; Status DC Rocuronium [place] (Zemuron) 50 mg STK-MED ONCE .ROUTE ; Start 04/18/17 at 17: 37; Stop 04/18/17 at 17:38; Status DC Propofol 20 ml @ As Directed STK-MED ONCE IV ; Start 04/18/17 at 17:37; Stop 04/18/17 at 17:38; Status DC Lidocaine HCl (Lidocaine Pf 2% Vial) 5 ml STK-MED ONCE .ROUTE ; Start 04/18/17 at 17:37; Stop 04/18/17 at 17:38; Status DC Dexamethasone Sodium Phosphate (Decadron) 20 mg STK-MED ONCE .ROUTE ; Start at 17:37; Stop 04/18/17 at 17:38; Status DC Ondansetron HCl (Zofran) 4 mg STK-MED ONCE .ROUTE ; Start 04/18/17 at 17:37; Stop 04/18/17 at 17:38; Status DC Tamsulosin HCl (Flomax) 0.4 mg DAILY PO Last administered on 04/20/17 09:01; Start 04/19/17 at 09:00 Losartan Potassium (Cozaar) 50 mg DAILY PO Last administered on 04/20/17 09: 01; Start 04/19/17 at 09:00 Multivitamins 10 ml/Thiamine HCl 100 mg/Ringer's Solution 1,011 ml @ 250 mls/ hr 1X ONCE IV Last administered on 04/19/17 01:24; Start 04/18/17 at 19:00 ; Stop 04/18/17 at 23:02; Status DC Ondansetron HCl (Zofran) 4 mg PRN Q6HRS PRN IV NAUSEA/VOMITING; Start at 19:00; Stop 04/18/17 at 22:00; Status DC Fentanyl Citrate (Fentanyl 2ml Vial) 25 mcg PRN Q5MIN PRN IV MILD PAIN; Start 04/18/17 at 19:00; Stop 04/18/17 at 22:00; Status DC Fentanyl Citrate (Fentanyl 2ml Vial) 50 mcg PRN Q5MIN PRN IV MODERATE PAIN; Start 04/18/17 at 19:00; Stop 04/18/17 at 22:00; Status DC Morphine Sulfate 1 mg PRN Q10MIN PRN IV SEVERE PAIN; Start 04/18/17 at 19:00; Stop 04/18/17 at 22:00; Status DC Ringer's Solution 1,000 ml @ 30 mls/hr Q24H IV ; Start 04/18/17 at 18:50; Stop 04/19/17 at 06:49; Status DC Lidocaine HCl (Xylocaine-Mpf 1% Vial) 2 ml 1X PRN PRN ID IV START; Start 04/18 at 19:00; Stop 04/18/17 at 22:00; Status DC Hydromorphone HCl (Dilaudid) 0.5 mg PRN Q10MIN PRN IV SEV PAIN, Second choice; Start 04/18/17 at 19:00; Stop 04/18/17 at 22:00; Status DC Prochlorperazine Edisylate (Compazine) 5 mg PACU PRN PRN IV NAUSEA, MRX1; Start 04/18/17 at 19:00; Stop 04/18/17 at 22:00; Status DC Bupivacaine HCl/ Epinephrine Bitart (Sensorcain-Mpf Epi 0.5%-1:118026) 30 ml STK -MED ONCE .ROUTE ; Start 04/18/17 at 19:16; Stop 04/18/17 at 19:17; Status DC Fentanyl Citrate (Fentanyl 2ml Vial) 100 mcg STK-MED ONCE .ROUTE ; Start at 19:49; Stop 04/18/17 at 19:50; Status DC Phenylephrine HCl 1 mg STK-MED ONCE IV ; Start 04/18/17 at 20:04; Stop at 20:05; Status DC Cellulose 1 each STK-MED ONCE .ROUTE Last administered on 04/18/17 21:07; Start 04/18/17 at 20:35; Stop 04/18/17 at 20:36; Status DC Cellulose 1 each STK-MED ONCE .ROUTE ; Start 04/18/17 at 21:26; Stop 04/18/17 at 21:27; Status DC Hydromorphone HCl 30 ml @ 0 mls/hr CONT PRN PRN IV PROTOCOL Last administered on 04/18/17t 23:53; Start 04/18/17 at 22:30 Morphine Sulfate 2 mg STK-MED ONCE .ROUTE ; Start 04/18/17 at 22:47; Stop at 22:48; Status DC Ondansetron HCl (Zofran) 4 mg PRN Q6HRS PRN IV NAUSEA/VOMITING; Start at 23:00; Stop 04/19/17 at 06:00; Status DC Fentanyl Citrate (Fentanyl 2ml Vial) 25 mcg PRN Q5MIN PRN IV MILD PAIN; Start 04/18/17 at 23:00; Stop 04/19/17 at 01:45; Status DC Fentanyl Citrate (Fentanyl 2ml Vial) 50 mcg PRN Q5MIN PRN IV MODERATE PAIN; Start 04/18/17 at 23:00; Stop 04/19/17 at 01:45; Status DC Morphine Sulfate 1 mg PRN Q10MIN PRN IV SEVERE PAIN Last administered on 22:53; Start 04/18/17 at 23:00; Stop 04/19/17 at 01:45; Status DC Hydromorphone HCl (Dilaudid) 0.5 mg PRN Q10MIN PRN IV SEV PAIN, Second choice Last administered on 04/18/17 23:30; Start 04/18/17 at 23:00; Stop 04/19/17 at 01:45; Status DC Prochlorperazine Edisylate (Compazine) 5 mg PACU PRN PRN IV NAUSEA, MRX1 Last administered on 04/18/17 22:59; Start 04/18/17 at 23:00; Stop 04/19/17 at 01 :45; Status DC Albuterol/ Ipratropium (Duoneb) 3 ml 1X PACU PRN NEB SEE COMMENTS Last administered on 04/18/17 23:13; Start 04/18/17 at 23:15; Stop 04/19/17 at 23 :14; Status DC Hydralazine HCl (Apresoline) 10 mg 1X PACU PRN PO HYPERTENSION, SEE COMMENTS; Start 04/18/17 at 23:30; Stop 04/19/17 at 01:45; Status DC Labetalol HCl (Normodyne) 20 mg PRN Q2HR PRN IVP HYPERTENSION, SEE COMMENTS; Start 04/19/17 at 01:45; Stop 04/19/17 at 15:19; Status DC Acetaminophen (Tylenol) 650 mg PRN Q6HRS PRN PO FEVER; Start 04/19/17 at 15:30 Ondansetron HCl (Zofran) 4 mg PRN Q6HRS PRN IV NAUSEA/VOMITING; Start at 15:30 Morphine Sulfate 2 mg PRN Q2HR PRN IV PAIN; Start 04/19/17 at 15:30 Tramadol HCl (Ultram) 50 mg PRN Q6HRS PRN PO PAIN; Start 04/19/17 at 15:30 Hydralazine HCl (Apresoline Inj) 10 mg PRN Q4HRS PRN IVP ELEVATED BP, SEE COMMENTS Last administered on 04/19/17 16:15; Start 04/19/17 at 15:30 Docusate Sodium (Colace) 100 mg PRN DAILY PRN PO CONSTIPATION; Start 04/19/17 at 15:30 Lorazepam (Ativan) 2 mg PRN Q4HRS PRN IV ANXIETY / AGITATION; Start 04/19/17 at 15:30 Multivitamins 10 ml/Thiamine HCl 100 mg/Dextrose/ Lactated Ringer's 1,011 ml @ 100 mls/hr Q24H IV ; Start 04/19/17 at 16:00; Stop 04/19/17 at 16:00; Status DC Amino Acids/ Glycerin/ Electrolytes 1,000 ml @ 80 mls/hr [id number] IV Last administered on 04/20/17 04:26; Start 04/19/17 at 15:30 Enoxaparin Sodium (Lovenox 40mg Syringe) 40 mg Q24H SQ Last administered on 16:20; Start 04/19/17 at 15:30 Famotidine (Pepcid Vial) 20 mg QHS IVP Last administered on 04/19/17 21:59; Start 04/19/17 at 21:00 Multivitamins 10 ml/Thiamine HCl 100 mg/Folic Acid 1 mg/Dextrose/ Lactated Ringer's 1,011.2 ml @ 100.02 mls/hr Q24H IV Last administered on 04/19/17 16 :11; Start 04/19/17 at 16:00; Stop 04/23/17 at 02:07 Sodium Phosphate 20 mmol/Dextrose 256.6667 ml @ 64.167 m... 1X ONCE IV Last administered on 04/20/17 09:03; Start 04/20/17 at 09:00; Stop 04/20/17 at 12 :59; Status DC Active Scripts Active Reported [Ranitidine] PO [Flomax] PO [Losartan] PO DAILY [Vitamin] 1 PO DAILY [Aspirin] Mg PO DAILY Vitals/I & O Vital Sign - Last 24 Hours 04/19/17 04/19/17 04/19/17 04/19/17 15:00 16:15 19:00 20:00 Temp 97.6 98.6 97.6 98.6 Pulse 64 62 Resp 18 18 B/P (MAP) 170/80 (110) 170/89 156/69 (98) Pulse Ox 96 95 O2 Delivery Room Air Room Air Room Air 04/19/17 04/20/17 04/20/17 04/20/17 23:00 03:00 07:00 09:01 Temp 99.0 98.4 99.1 99.0 98.4 99.1 Pulse 57 59 63 63 Resp 18 18 18 B/P (MAP) 153/72 (99) 144/72 (96) 150/83 (105) 150/83 Pulse Ox 95 96 95 O2 Delivery Room Air Room Air Room Air 04/20/17 11:00 Temp 98.6 98.6 Pulse 60 Resp 18 B/P (MAP) 140/77 (98) Pulse Ox 96 O2 Delivery Room Air Intake and Output 04/19/17 04/19/17 04/20/17 14:59 22:59 06:59 Intake Total 0 ml Output Total 2240 ml 225 ml Balance -2240 ml -225 ml HERIMNIO BUTLER MD Apr 20, 2017 13:21
[2017-04-20] MEDS: ONDANSETRON PF 4 MG/2 ML VIAL. IV PRN (13:51)
[2017-04-20 15:00] VITALS: BP 141/87
[2017-04-20] MEDS: ENOXAPARIN 40 MG/0.4 ML SYRINGE. SQ SCH (16:14)
[2017-04-20] MEDS: MULTIVIT INFUSN,ADULT 4,VIT K 10 ML, THIAMINE 100 MG, FOLIC ACID 1 MG in IV DEXTROSE 5%... IV SCH (16:14)
--- NOTE | 2017-04-20 17:19 | PATHOLOGY ---
PATHOLOGY REPORT * * * * * * * * FINAL DIAGNOSIS: Appendix, open appendectomy: Acute and chronic appendicitis and periappendicitis. COMMENT: There is no evidence of malignancy. (LITM:; 04/20/2017) REPORT ELECTRONICALLY SIGNED BY: Heriberto Galo M.D. DATE/TIME: 04/20/2017 17:19 * * * * * * * * GROSS PATHOLOGY: Received in formalin labeled "mark Rice," is an appendix measuring 4.0 cm in length and 0.8 to1.0 cm in diameter with a 1.8 x 1.2 x 0.8 amount of attached mesoappendix. The serosal surface is waterman-white and ragged. Sectioning reveals a perforation adjacent to the resection margin. No fecaliths are identified. Clinical Program Manager sections are submitted in cassette A1, with the proximal margin inked black. ([facility]; 04/19/2017) INITIAL CPT CODE(S): A; 33289 Professional services performed by [facility] [place] [address] Technical services performed by [facility] at [address] [place] [address]. SPECIMEN(S) RECEIVED: A.Appendix CLINICAL HISTORY: Acute appendicitis PATIENT: MARIEL DODGE JR /AGE: 10 1940 (Age: 77) PATIENT #: [id number] ALT CASE #: SPECIMEN COLLECTION DATE: 04/18/2017 SPECIMEN RECEIVED DATE: 04/19/2017 [facility] - [address] [place] [address] - PHONE: [phone] * * * END OF REPORT * * *
[2017-04-20 19:00] VITALS: BP 138/69
[2017-04-20] MEDS: FAMOTIDINE 20 MG/2 ML VIAL IVP SCH (22:47)
[2017-04-20 23:00] VITALS: BP 118/61
--- NOTE | 2017-04-21 00:29 | RAD ---
Abdominal radiograph April 20, 2017 INDICATION: Nasogastric tube placement COMPARISON: Abdominal radiograph April 18, 2017 TECHNIQUE: Single portable upright view of the abdomen is provided. FINDINGS: A nasogastric tube is identified with the distal tip projecting over the left upper quadrant and the side port below the level of the hemidiaphragm. A surgical drainage catheter projects over the right upper abdomen. Surgical manjit are identified along the right upper abdomen. There are distended small bowel loops measuring up to 4.7 cm suggestive of small bowel ileus versus developing small bowel obstruction. Retained oral contrast is identified in nondilated loops of large bowel. There is subsegmental atelectasis at the left lung base. There is no free intraperitoneal air. IMPRESSION: 1. Nasogastric tube is identified with the side port below the level of the hemidiaphragm. 2. There are distended small bowel loops measuring up to 4.7 cm. Findings may represent ileus versus developing small bowel obstruction. Short-term follow-up abdominal radiographs may be of benefit. Electronically signed by: Olive Watson MD (04/21/2017 12:26 AM) [id number]
[2017-04-21] MEDS ORDERED: ACETAMINOPHEN 650 MG SUPP.RECT. PR PRN (01:00)
[2017-04-21] MEDS ORDERED: diphenhydrAMINE 50 MG/ML VIAL IVP PRN (01:00)
[2017-04-21 03:00] VITALS: BP 157/88
[2017-04-21 05:17] LABS: BASO # 0.1 x10^3/uL (0.0-0.2); BASO % 1 % (0-3); EOS % 0 % (0-3); HEMATOCRIT 39.3 % (39.0-53.0); HEMOGLOBIN 13.5 g/dL (13.0-17.5); LYMPH # 2.1 x10^3/uL (1.0-4.8); LYMPH % 12 % (24-48); MEAN CORPUSCULAR HEMOGLOBIN 34 pg (25-35); MEAN CORPUSCULAR HGB CONC 34 g/dL (31-37); MEAN CORPUSCULAR VOLUME 98 fL (79-100); MONO % 5 % (0-9); NEUT % 83 % (31-73); PLATELET COUNT 436 x10^3/uL (140-400); RED BLOOD COUNT 4.02 x10^6/uL (4.30-5.70); RED CELL DISTRIBUTION WIDTH 12.8 % (11.5-14.5); WHITE BLOOD COUNT 18.3 x10^3/uL (4.0-11.0)
[2017-04-21] MEDS: AMINO AC 3%/ELECTROLYTE/GLYCER 1,000 ML IV SCH ×2 (06:26→17:30)
[2017-04-21 06:35] LABS: CALCIUM 7.9 mg/dL (8.5-10.1); CREATININE 0.8 mg/dL (0.7-1.3); GFR 93.5; PHOSPHORUS 2.8 mg/dL (2.6-4.7); POTASSIUM 3.7 mmol/L (3.5-5.1)
[2017-04-21 07:00] VITALS: BP 136/75
[2017-04-21] MEDS: TAMSULOSIN 0.4 MG CAP.ER.24H. PO SCH (09:00)
[2017-04-21] MEDS: LOSARTAN POTASSIUM 50 MG TABLET. PO SCH (09:00)
[2017-04-21 11:00] VITALS: BP 153/85
--- NOTE | 2017-04-21 11:11 | RAD ---
Upright and supine AP abdominal radiographs 04/21/2017 Clinical indication: Ileus, small bowel obstruction, recent appendectomy. Comparison: Abdominal radiograph 04/21/2017. Findings: Transesophageal nasogastric tube slightly retracted with the proximal side port at the GE junction distal tip just beyond the GE junction. There is a right upper quadrant surgical drain in similar position. There is a horizontally oriented surgical skin manjit the right upper quadrant. Interval increase in degree of small bowel dilatation. There is a relative paucity of colonic gas. No radiographic evidence of pneumoperitoneum. Impression: Increase in degree of gaseous dilatation of the small bowel with a relative paucity of colonic gas which may represent small bowel obstruction or ileus. Progress radiographs to resolution recommended.
[2017-04-21] MEDS: ONDANSETRON PF 4 MG/2 ML VIAL. IV PRN (11:36)
[2017-04-21] MEDS: IV NORMAL SALINE 1000ML BAG 1,000 ML IV SCH (11:37)
--- NOTE | 2017-04-21 13:04 | PDOC ---
PROGRESS NOTES Chief Complaint Chief Complaint acute abdominal pain with acute appendicitis s/p open appendectomy ETOH abuse early COPD, hyperlipids BPH hypophosphatemia mild malnutrition post op sbo vs ileus plan: fu with sx npo, NGT AXR today showed sbo vs ileus, repeat XR tmr waiting for bowel function on PPN, add ivf, CONsider ABD CT if WBC cont gets higher on flagyl, add ciprol labs tmr dvt , gi ppx CAFETERIA ASSISTANT for pain control, dc it since pt only used once in a day PTOT History of Present Illness History of Present Illness ROS: no fever, chills, sob or chest pain no flatus or BM post op low greg severe N/V overnight , need NGT higher WBC Vitals Vitals Vital Signs Date Time Temp Pulse Resp B/P (MAP) Pulse Ox O2 Delivery O2 Flow Rate FiO2 04/21/17 08:00 Room Air 10.0 04/21/17 07:00 98.3 63 18 136/75 (95) 95 98.3 Physical Exam General: Alert, Oriented X3, Cooperative, No acute distress Heart: Regular rate, Normal S1, Normal S2 Lungs: Clear Abdomen: Soft, Other (1 LIT with some sangeous liquid, clean sx wound ,mild tenderness. mild BS. more abd distention) Extremities: No cyanosis, No edema Skin: No rashes, No breakdown Labs LABS Laboratory Tests Test 04/21/17 03:40 White Blood Count 18.3 x10^3/uL (4.0-11.0) Red Blood Count 4.02 x10^6/uL (4.30-5.70) Hemoglobin 13.5 g/dL (13.0-17.5) Hematocrit 39.3 % (39.0-53.0) Mean Corpuscular Volume 98 fL (79-100) Mean Corpuscular Hemoglobin 34 pg (25-35) Mean Corpuscular Hemoglobin Concent 34 g/dL (31-37) Red Cell Distribution Width 12.8 % (11.5-14.5) Platelet Count 436 x10^3/uL (140-400) Neutrophils (%) (Auto) 83 % (31-73) Lymphocytes (%) (Auto) 12 % (24-48) Monocytes (%) (Auto) 5 % (0-9) Eosinophils (%) (Auto) 0 % (0-3) Basophils (%) (Auto) 1 % (0-3) Neutrophils # (Auto) 15.2 x10^3uL (1.8-7.7) Lymphocytes # (Auto) 2.1 x10^3/uL (1.0-4.8) Monocytes # (Auto) 0.9 x10^3/uL (0.0-1.1) Eosinophils # (Auto) 0.0 x10^3/uL (0.0-0.7) Basophils # (Auto) 0.1 x10^3/uL (0.0-0.2) Sodium Level 133 mmol/L (136-145) Potassium Level 3.7 mmol/L (3.5-5.1) Chloride Level 100 mmol/L (98-107) Carbon Dioxide Level 23 mmol/L (21-32) Anion Gap 10 (6-14) Blood Urea Nitrogen 16 mg/dL (8-26) Creatinine 0.8 mg/dL (0.7-1.3) Estimated GFR (Cockcroft-Gault) 93.5 Glucose Level 128 mg/dL (70-99) Calcium Level 7.9 mg/dL (8.5-10.1) Phosphorus Level 2.8 mg/dL (2.6-4.7) Magnesium Level 2.0 mg/dL (1.8-2.4) Assessment and Plan Assessmemt and Plan Problems Medical Problems: (1) ETOH abuse Status: Acute Problems: Comment Review of Relevant I have reviewed the following items nika (where applicable) has been applied. Labs Laboratory Tests Test 04/20/17 04:25 04/21/17 03:40 White Blood Count 14.2 x10^3/uL (4.0-11.0) 18.3 x10^3/uL (4.0-11.0) Red Blood Count 3.72 x10^6/uL (4.30-5.70) 4.02 x10^6/uL (4.30-5.70) Hemoglobin 12.5 g/dL (13.0-17.5) 13.5 g/dL (13.0-17.5) Hematocrit 36.0 % (39.0-53.0) 39.3 % (39.0-53.0) Mean Corpuscular Volume 97 fL (79-100) 98 fL (79-100) Mean Corpuscular Hemoglobin 34 pg (25-35) 34 pg (25-35) Mean Corpuscular Hemoglobin Concent 35 g/dL (31-37) 34 g/dL (31-37) Red Cell Distribution Width 12.7 % (11.5-14.5) 12.8 % (11.5-14.5) Platelet Count 370 x10^3/uL (140-400) 436 x10^3/uL (140-400) Neutrophils (%) (Auto) 77 % (31-73) 83 % (31-73) Lymphocytes (%) (Auto) 16 % (24-48) 12 % (24-48) Monocytes (%) (Auto) 7 % (0-9) 5 % (0-9) Eosinophils (%) (Auto) 0 % (0-3) 0 % (0-3) Basophils (%) (Auto) 1 % (0-3) 1 % (0-3) Neutrophils # (Auto) 10.9 x10^3uL (1.8-7.7) 15.2 x10^3uL (1.8-7.7) Lymphocytes # (Auto) 2.2 x10^3/uL (1.0-4.8) 2.1 x10^3/uL (1.0-4.8) Monocytes # (Auto) 1.0 x10^3/uL (0.0-1.1) 0.9 x10^3/uL (0.0-1.1) Eosinophils # (Auto) 0.0 x10^3/uL (0.0-0.7) 0.0 x10^3/uL (0.0-0.7) Basophils # (Auto) 0.1 x10^3/uL (0.0-0.2) 0.1 x10^3/uL (0.0-0.2) Sodium Level 134 mmol/L (136-145) 133 mmol/L (136-145) Potassium Level 3.8 mmol/L (3.5-5.1) 3.7 mmol/L (3.5-5.1) Chloride Level 104 mmol/L (98-107) 100 mmol/L (98-107) Carbon Dioxide Level 24 mmol/L (21-32) 23 mmol/L (21-32) Anion Gap 6 (6-14) 10 (6-14) Blood Urea Nitrogen 10 mg/dL (8-26) 16 mg/dL (8-26) Creatinine 0.8 mg/dL (0.7-1.3) 0.8 mg/dL (0.7-1.3) Estimated GFR (Cockcroft-Gault) 93.5 93.5 Glucose Level 147 mg/dL (70-99) 128 mg/dL (70-99) Calcium Level 8.3 mg/dL (8.5-10.1) 7.9 mg/dL (8.5-10.1) Phosphorus Level 2.1 mg/dL (2.6-4.7) 2.8 mg/dL (2.6-4.7) Magnesium Level 2.1 mg/dL (1.8-2.4) 2.0 mg/dL (1.8-2.4) Laboratory Tests Test 04/21/17 03:40 White Blood Count 18.3 x10^3/uL (4.0-11.0) Red Blood Count 4.02 x10^6/uL (4.30-5.70) Hemoglobin 13.5 g/dL (13.0-17.5) Hematocrit 39.3 % (39.0-53.0) Mean Corpuscular Volume 98 fL (79-100) Mean Corpuscular Hemoglobin 34 pg (25-35) Mean Corpuscular Hemoglobin Concent 34 g/dL (31-37) Red Cell Distribution Width 12.8 % (11.5-14.5) Platelet Count 436 x10^3/uL (140-400) Neutrophils (%) (Auto) 83 % (31-73) Lymphocytes (%) (Auto) 12 % (24-48) Monocytes (%) (Auto) 5 % (0-9) Eosinophils (%) (Auto) 0 % (0-3) Basophils (%) (Auto) 1 % (0-3) Neutrophils # (Auto) 15.2 x10^3uL (1.8-7.7) Lymphocytes # (Auto) 2.1 x10^3/uL (1.0-4.8) Monocytes # (Auto) 0.9 x10^3/uL (0.0-1.1) Eosinophils # (Auto) 0.0 x10^3/uL (0.0-0.7) Basophils # (Auto) 0.1 x10^3/uL (0.0-0.2) Sodium Level 133 mmol/L (136-145) Potassium Level 3.7 mmol/L (3.5-5.1) Chloride Level 100 mmol/L (98-107) Carbon Dioxide Level 23 mmol/L (21-32) Anion Gap 10 (6-14) Blood Urea Nitrogen 16 mg/dL (8-26) Creatinine 0.8 mg/dL (0.7-1.3) Estimated GFR (Cockcroft-Gault) 93.5 Glucose Level 128 mg/dL (70-99) Calcium Level 7.9 mg/dL (8.5-10.1) Phosphorus Level 2.8 mg/dL (2.6-4.7) Magnesium Level 2.0 mg/dL (1.8-2.4) Medications Current Medications Sodium Chloride 1,000 ml @ 1,000 mls/hr 1X ONCE IV Last administered on 04/18 17:14; Start 04/18/17 at 17:00; Stop 04/18/17 at 17:59; Status DC Metronidazole 100 ml @ 100 mls/hr Q8HRS IV Last administered on 04/21/17 06: 27; Start 04/18/17 at 23:00 Piperacillin Sod/ Tazobactam Sod 3.375 gm/Dextrose 50 ml @ 100 mls/hr 1X ONCE IV ; Start 04/18/17 at 17:15; Stop 04/18/17 at 17:44; Status UNV Piperacillin Sod/ Tazobactam Sod (Zosyn) 3.375 gm 1X ONCE IVP Last administered on 04/18/17 17:41; Start 04/18/17 at 17:15; Stop 04/18/17 at 17 :16; Status DC Metronidazole 100 ml @ 100 mls/hr 1X ONCE IV ; Start 04/18/17 at 17:15; Stop 04/18/17 at 18:14; Status DC Sevoflurane (Ultane) 60 ml STK-MED ONCE IH ; Start 04/18/17 at 17:36; Stop at 17:37; Status DC Fentanyl Citrate (Fentanyl 2ml Vial) 100 mcg STK-MED ONCE .ROUTE ; Start at 17:36; Stop 04/18/17 at 17:37; Status DC Neostigmine Methylsulfate (Bloxiverz) 10 mg STK-MED ONCE .ROUTE ; Start at 17:36; Stop 04/18/17 at 17:37; Status DC Succinylcholine Chloride (Anectine) 200 mg STK-MED ONCE .ROUTE ; Start at 17:36; Stop 04/18/17 at 17:37; Status DC Glycopyrrolate (Robinul) 1 mg STK-MED ONCE .ROUTE ; Start 04/18/17 at 17:37; Stop 04/18/17 at 17:38; Status DC Rocuronium [place] (Zemuron) 50 mg STK-MED ONCE .ROUTE ; Start 04/18/17 at 17: 37; Stop 04/18/17 at 17:38; Status DC Propofol 20 ml @ As Directed STK-MED ONCE IV ; Start 04/18/17 at 17:37; Stop 04/18/17 at 17:38; Status DC Lidocaine HCl (Lidocaine Pf 2% Vial) 5 ml STK-MED ONCE .ROUTE ; Start 04/18/17 at 17:37; Stop 04/18/17 at 17:38; Status DC Dexamethasone Sodium Phosphate (Decadron) 20 mg STK-MED ONCE .ROUTE ; Start at 17:37; Stop 04/18/17 at 17:38; Status DC Ondansetron HCl (Zofran) 4 mg STK-MED ONCE .ROUTE ; Start 04/18/17 at 17:37; Stop 04/18/17 at 17:38; Status DC Tamsulosin HCl (Flomax) 0.4 mg DAILY PO Last administered on 04/20/17 09:01; Start 04/19/17 at 09:00 Losartan Potassium (Cozaar) 50 mg DAILY PO Last administered on 04/20/17 09: 01; Start 04/19/17 at 09:00 Multivitamins 10 ml/Thiamine HCl 100 mg/Ringer's Solution 1,011 ml @ 250 mls/ hr 1X ONCE IV Last administered on 04/19/17 01:24; Start 04/18/17 at 19:00 ; Stop 04/18/17 at 23:02; Status DC Ondansetron HCl (Zofran) 4 mg PRN Q6HRS PRN IV NAUSEA/VOMITING; Start at 19:00; Stop 04/18/17 at 22:00; Status DC Fentanyl Citrate (Fentanyl 2ml Vial) 25 mcg PRN Q5MIN PRN IV MILD PAIN; Start 04/18/17 at 19:00; Stop 04/18/17 at 22:00; Status DC Fentanyl Citrate (Fentanyl 2ml Vial) 50 mcg PRN Q5MIN PRN IV MODERATE PAIN; Start 04/18/17 at 19:00; Stop 04/18/17 at 22:00; Status DC Morphine Sulfate 1 mg PRN Q10MIN PRN IV SEVERE PAIN; Start 04/18/17 at 19:00; Stop 04/18/17 at 22:00; Status DC Ringer's Solution 1,000 ml @ 30 mls/hr Q24H IV ; Start 04/18/17 at 18:50; Stop 04/19/17 at 06:49; Status DC Lidocaine HCl (Xylocaine-Mpf 1% Vial) 2 ml 1X PRN PRN ID IV START; Start 04/18 at 19:00; Stop 04/18/17 at 22:00; Status DC Hydromorphone HCl (Dilaudid) 0.5 mg PRN Q10MIN PRN IV SEV PAIN, Second choice; Start 04/18/17 at 19:00; Stop 04/18/17 at 22:00; Status DC Prochlorperazine Edisylate (Compazine) 5 mg PACU PRN PRN IV NAUSEA, MRX1; Start 04/18/17 at 19:00; Stop 04/18/17 at 22:00; Status DC Bupivacaine HCl/ Epinephrine Bitart (Sensorcain-Mpf Epi 0.5%-[id number]) 30 ml STK -MED ONCE .ROUTE ; Start 04/18/17 at 19:16; Stop 04/18/17 at 19:17; Status DC Fentanyl Citrate (Fentanyl 2ml Vial) 100 mcg STK-MED ONCE .ROUTE ; Start at 19:49; Stop 04/18/17 at 19:50; Status DC Phenylephrine HCl 1 mg STK-MED ONCE IV ; Start 04/18/17 at 20:04; Stop at 20:05; Status DC Cellulose 1 each STK-MED ONCE .ROUTE Last administered on 04/18/17 21:07; Start 04/18/17 at 20:35; Stop 04/18/17 at 20:36; Status DC Cellulose 1 each STK-MED ONCE .ROUTE ; Start 04/18/17 at 21:26; Stop 04/18/17 at 21:27; Status DC Hydromorphone HCl 30 ml @ 0 mls/hr CONT PRN PRN IV PROTOCOL Last administered on 04/18/17 23:53; Start 04/18/17 at 22:30; Stop 04/21/17 at 09:03; Status DC Morphine Sulfate 2 mg STK-MED ONCE .ROUTE ; Start 04/18/17 at 22:47; Stop at 22:48; Status DC Ondansetron HCl (Zofran) 4 mg PRN Q6HRS PRN IV NAUSEA/VOMITING; Start at 23:00; Stop 04/19/17 at 06:00; Status DC Fentanyl Citrate (Fentanyl 2ml Vial) 25 mcg PRN Q5MIN PRN IV MILD PAIN; Start 04/18/17 at 23:00; Stop 04/19/17 at 01:45; Status DC Fentanyl Citrate (Fentanyl 2ml Vial) 50 mcg PRN Q5MIN PRN IV MODERATE PAIN; Start 04/18/17 at 23:00; Stop 04/19/17 at 01:45; Status DC Morphine Sulfate 1 mg PRN Q10MIN PRN IV SEVERE PAIN Last administered on 22:53; Start 04/18/17 at 23:00; Stop 04/19/17 at 01:45; Status DC Hydromorphone HCl (Dilaudid) 0.5 mg PRN Q10MIN PRN IV SEV PAIN, Second choice Last administered on 04/18/17 23:30; Start 04/18/17 at 23:00; Stop 04/19/17 at 01:45; Status DC Prochlorperazine Edisylate (Compazine) 5 mg PACU PRN PRN IV NAUSEA, MRX1 Last administered on 11/13/17at 22:59; Start 04/18/17 at 23:00; Stop 04/19/17 at 01 :45; Status DC Albuterol/ Ipratropium (Duoneb) 3 ml 1X PACU PRN NEB SEE COMMENTS Last administered on 04/18/17 23:13; Start 04/18/17 at 23:15; Stop 04/19/17 at 23 :14; Status DC Hydralazine HCl (Apresoline) 10 mg 1X PACU PRN PO HYPERTENSION, SEE COMMENTS; Start 04/18/17 at 23:30; Stop 04/19/17 at 01:45; Status DC Labetalol HCl (Normodyne) 20 mg PRN Q2HR PRN IVP HYPERTENSION, SEE COMMENTS; Start 04/19/17 at 01:45; Stop 04/19/17 at 15:19; Status DC Acetaminophen (Tylenol) 650 mg PRN Q6HRS PRN PO FEVER; Start 04/19/17 at 15:30 Ondansetron HCl (Zofran) 4 mg PRN Q6HRS PRN IV NAUSEA/VOMITING Last administered on 04/21/17t 11:36; Start 04/19/17 at 15:30 Morphine Sulfate 2 mg PRN Q2HR PRN IV PAIN; Start 04/19/17 at 15:30 Tramadol HCl (Ultram) 50 mg PRN Q6HRS PRN PO PAIN; Start 04/19/17 at 15:30 Hydralazine HCl (Apresoline Inj) 10 mg PRN Q4HRS PRN IVP ELEVATED BP, SEE COMMENTS Last administered on 04/19/17t 16:15; Start 04/19/17 at 15:30 Docusate Sodium (Colace) 100 mg PRN DAILY PRN PO CONSTIPATION; Start 04/19/17 at 15:30 Lorazepam (Ativan) 2 mg PRN Q4HRS PRN IV ANXIETY / AGITATION; Start 04/19/17 at 15:30 Multivitamins 10 ml/Thiamine HCl 100 mg/Dextrose/ Lactated Ringer's 1,011 ml @ 100 mls/hr Q24H IV ; Start 04/19/17 at 16:00; Stop 04/19/17 at 16:00; Status DC Amino Acids/ Glycerin/ Electrolytes 1,000 ml @ 80 mls/hr [id number] IV Last administered on 04/21/17 06:26; Start 04/19/17 at 15:30 Enoxaparin Sodium (Lovenox 40mg Syringe) 40 mg Q24H SQ Last administered on 16:14; Start 04/19/17 at 15:30 Famotidine (Pepcid Vial) 20 mg QHS IVP Last administered on 04/20/17 22:47; Start 04/19/17 at 21:00 Multivitamins 10 ml/Thiamine HCl 100 mg/Folic Acid 1 mg/Dextrose/ Lactated Ringer's 1,011.2 ml @ 100.02 mls/hr Q24H IV Last administered on 04/20/17 16 :14; Start 04/19/17 at 16:00; Stop 04/23/17 at 02:07 Sodium Phosphate 20 mmol/Dextrose 256.6667 ml @ 64.167 m... 1X ONCE IV Last administered on 04/20/17 09:03; Start 04/20/17 at 09:00; Stop 04/20/17 at 12 :59; Status DC Lorazepam (Ativan) 0.5 mg PRN 1X PRN IV ANXIETY / AGITATION Last administered on 04/21/17 02:00; Start 04/21/17 at 01:00 Diphenhydramine HCl (Benadryl) 25 mg PRN 1X PRN IVP INSOMNIA; Start 04/21/17 at 01:00 Acetaminophen (Acetaminophen Supp) 650 mg PRN Q6HRS PRN OR MILD PAIN / TEMP; Start 04/21/17 at 01:00 Sodium Chloride 1,000 ml @ 75 mls/hr [id number] IV Last administered on 11:37; Start 04/21/17 at 09:15 Active Scripts Active Reported [Ranitidine] PO [Flomax] PO [Losartan] PO DAILY [Vitamin] 1 PO DAILY [Aspirin] Mg PO DAILY Vitals/I & O Vital Sign - Last 24 Hours 04/20/17 04/20/17 04/20/17 04/20/17 15:00 19:00 20:00 23:00 Temp 98.8 98.6 98.4 98.8 98.6 98.4 Pulse 64 69 72 Resp 18 18 18 B/P (MAP) 141/87 (105) 138/69 (92) 118/61 (80) Pulse Ox 95 95 94 O2 Delivery Room Air Room Air Room Air Room Air 04/21/17 04/21/17 04/21/17 03:00 07:00 08:00 Temp 97.6 98.3 97.6 98.3 Pulse 62 63 Resp 18 18 B/P (MAP) 157/88 (111) 136/75 (95) Pulse Ox 97 95 O2 Delivery Room Air Room Air Room Air O2 Flow Rate 10.0 Intake and Output 04/20/17 04/20/17 04/21/17 15:00 23:00 07:00 Intake Total 0 ml Output Total 360 ml 1600 ml Balance -360 ml -1600 ml HERMINIO BUTLER MD Apr 21, 2017 13:03
--- NOTE | 2017-04-21 13:05 | PDOC ---
ARMANDO MCGEE [employer] 04/21/17 1305: SURGICAL PROGRESS NOTE Subjective restless in room vomiting overnight, now has NG Vital Signs Vital Signs Date Time Temp Pulse Resp B/P (MAP) Pulse Ox O2 Delivery O2 Flow Rate FiO2 04/21/17 08:00 Room Air 10.0 04/21/17 07:00 98.3 63 18 136/75 (95) 95 98.3 I&O Intake and Output 04/21/17 07:00 Intake Total 0 ml Output Total 1960 ml Balance -1960 ml Intake Oral 0 ml Gastric Drainage Total 700 ml Drainage Total 810 ml Other 450 ml General: Alert, Cooperative, No acute distress Abdomen: Soft, Other (incision c/d/i, no erythema, drain serosang) Labs Laboratory Tests Test 04/20/17 04:25 04/21/17 03:40 White Blood Count 14.2 x10^3/uL (4.0-11.0) 18.3 x10^3/uL (4.0-11.0) Red Blood Count 3.72 x10^6/uL (4.30-5.70) 4.02 x10^6/uL (4.30-5.70) Hemoglobin 12.5 g/dL (13.0-17.5) 13.5 g/dL (13.0-17.5) Hematocrit 36.0 % (39.0-53.0) 39.3 % (39.0-53.0) Mean Corpuscular Volume 97 fL (79-100) 98 fL (79-100) Mean Corpuscular Hemoglobin 34 pg (25-35) 34 pg (25-35) Mean Corpuscular Hemoglobin Concent 35 g/dL (31-37) 34 g/dL (31-37) Red Cell Distribution Width 12.7 % (11.5-14.5) 12.8 % (11.5-14.5) Platelet Count 370 x10^3/uL (140-400) 436 x10^3/uL (140-400) Neutrophils (%) (Auto) 77 % (31-73) 83 % (31-73) Lymphocytes (%) (Auto) 16 % (24-48) 12 % (24-48) Monocytes (%) (Auto) 7 % (0-9) 5 % (0-9) Eosinophils (%) (Auto) 0 % (0-3) 0 % (0-3) Basophils (%) (Auto) 1 % (0-3) 1 % (0-3) Neutrophils # (Auto) 10.9 x10^3uL (1.8-7.7) 15.2 x10^3uL (1.8-7.7) Lymphocytes # (Auto) 2.2 x10^3/uL (1.0-4.8) 2.1 x10^3/uL (1.0-4.8) Monocytes # (Auto) 1.0 x10^3/uL (0.0-1.1) 0.9 x10^3/uL (0.0-1.1) Eosinophils # (Auto) 0.0 x10^3/uL (0.0-0.7) 0.0 x10^3/uL (0.0-0.7) Basophils # (Auto) 0.1 x10^3/uL (0.0-0.2) 0.1 x10^3/uL (0.0-0.2) Sodium Level 134 mmol/L (136-145) 133 mmol/L (136-145) Potassium Level 3.8 mmol/L (3.5-5.1) 3.7 mmol/L (3.5-5.1) Chloride Level 104 mmol/L (98-107) 100 mmol/L (98-107) Carbon Dioxide Level 24 mmol/L (21-32) 23 mmol/L (21-32) Anion Gap 6 (6-14) 10 (6-14) Blood Urea Nitrogen 10 mg/dL (8-26) 16 mg/dL (8-26) Creatinine 0.8 mg/dL (0.7-1.3) 0.8 mg/dL (0.7-1.3) Estimated GFR (Cockcroft-Gault) 93.5 93.5 Glucose Level 147 mg/dL (70-99) 128 mg/dL (70-99) Calcium Level 8.3 mg/dL (8.5-10.1) 7.9 mg/dL (8.5-10.1) Phosphorus Level 2.1 mg/dL (2.6-4.7) 2.8 mg/dL (2.6-4.7) Magnesium Level 2.1 mg/dL (1.8-2.4) 2.0 mg/dL (1.8-2.4) Laboratory Tests Test 04/21/17 03:40 White Blood Count 18.3 x10^3/uL (4.0-11.0) Red Blood Count 4.02 x10^6/uL (4.30-5.70) Hemoglobin 13.5 g/dL (13.0-17.5) Hematocrit 39.3 % (39.0-53.0) Mean Corpuscular Volume 98 fL (79-100) Mean Corpuscular Hemoglobin 34 pg (25-35) Mean Corpuscular Hemoglobin Concent 34 g/dL (31-37) Red Cell Distribution Width 12.8 % (11.5-14.5) Platelet Count 436 x10^3/uL (140-400) Neutrophils (%) (Auto) 83 % (31-73) Lymphocytes (%) (Auto) 12 % (24-48) Monocytes (%) (Auto) 5 % (0-9) Eosinophils (%) (Auto) 0 % (0-3) Basophils (%) (Auto) 1 % (0-3) Neutrophils # (Auto) 15.2 x10^3uL (1.8-7.7) Lymphocytes # (Auto) 2.1 x10^3/uL (1.0-4.8) Monocytes # (Auto) 0.9 x10^3/uL (0.0-1.1) Eosinophils # (Auto) 0.0 x10^3/uL (0.0-0.7) Basophils # (Auto) 0.1 x10^3/uL (0.0-0.2) Sodium Level 133 mmol/L (136-145) Potassium Level 3.7 mmol/L (3.5-5.1) Chloride Level 100 mmol/L (98-107) Carbon Dioxide Level 23 mmol/L (21-32) Anion Gap 10 (6-14) Blood Urea Nitrogen 16 mg/dL (8-26) Creatinine 0.8 mg/dL (0.7-1.3) Estimated GFR (Cockcroft-Gault) 93.5 Glucose Level 128 mg/dL (70-99) Calcium Level 7.9 mg/dL (8.5-10.1) Phosphorus Level 2.8 mg/dL (2.6-4.7) Magnesium Level 2.0 mg/dL (1.8-2.4) Problem List Problems Medical Problems: (1) ETOH abuse Status: Acute Assessment/Plan s/p appy ileus--continue NG, bowel rest, hydration, electrolyte management hx alcohol abuse--may need treatment for withdrawal- as per primary Problems: ANA PABON MD 04/22/17 1304: SURGICAL PROGRESS NOTE Assessment/Plan agree with above, likely ileus which will take time to resolve Problems: ARMANDO MCGEE APRN Apr 21, 2017 13:05 ANA PABON MD Apr 22, 2017 13:04
[2017-04-21 15:00] VITALS: BP 175/95
[2017-04-21] MEDS: CIPROFLOXACIN 400MG PREMIX 200 ML IV SCH ×2 (15:43→21:14)
[2017-04-21] MEDS: ENOXAPARIN 40 MG/0.4 ML SYRINGE. SQ SCH (15:44)
[2017-04-21] MEDS: MULTIVIT INFUSN,ADULT 4,VIT K 10 ML, THIAMINE 100 MG, FOLIC ACID 1 MG in IV DEXTROSE 5%... IV SCH (15:44)
[2017-04-21 19:20] VITALS: BP 128/72
[2017-04-21] MEDS: FAMOTIDINE 20 MG/2 ML VIAL IVP SCH (21:11)
[2017-04-21 23:03] VITALS: BP 154/86
[2017-04-22] MEDS: AMINO AC 3%/ELECTROLYTE/GLYCER 1,000 ML IV SCH ×2 (01:11→14:42)
[2017-04-22 03:13] VITALS: BP 138/80
[2017-04-22 05:45] LABS: BASO # 0.1 x10^3/uL (0.0-0.2); BASO % 0 % (0-3); EOS % 2 % (0-3); HEMATOCRIT 36.9 % (39.0-53.0); HEMOGLOBIN 12.7 g/dL (13.0-17.5); LYMPH # 2.3 x10^3/uL (1.0-4.8); LYMPH % 14 % (24-48); MEAN CORPUSCULAR HEMOGLOBIN 33 pg (25-35); MEAN CORPUSCULAR HGB CONC 34 g/dL (31-37); MEAN CORPUSCULAR VOLUME 97 fL (79-100); MONO % 6 % (0-9); NEUT % 77 % (31-73); PLATELET COUNT 444 x10^3/uL (140-400); RED BLOOD COUNT 3.81 x10^6/uL (4.30-5.70); RED CELL DISTRIBUTION WIDTH 12.7 % (11.5-14.5); WHITE BLOOD COUNT 15.9 x10^3/uL (4.0-11.0)
[2017-04-22 05:57] LABS: CALCIUM 8.1 mg/dL (8.5-10.1); CREATININE 0.7 mg/dL (0.7-1.3); GFR 109.1; POTASSIUM 3.8 mmol/L (3.5-5.1)
[2017-04-22 07:00] VITALS: BP 156/80
[2017-04-22] MEDS: IV NORMAL SALINE 1000ML BAG 1,000 ML IV SCH ×2 (08:27→11:55)
[2017-04-22] MEDS: CIPROFLOXACIN 400MG PREMIX 200 ML IV SCH ×2 (08:27→21:54)
[2017-04-22] MEDS: TAMSULOSIN 0.4 MG CAP.ER.24H. PO SCH (08:28)
[2017-04-22] MEDS: LOSARTAN POTASSIUM 50 MG TABLET. PO SCH (08:28)
--- NOTE | 2017-04-22 10:44 | RAD ---
2 views of the abdomen 04/22/2017 Indication: Small bowel obstruction Comparison study: Abdominal radiographs, yesterday Findings: Multiple dilated loops of small bowel are noted in the central abdomen concerning for ongoing small bowel obstruction. Surgical drain projecting over the right upper quadrant. Cutaneous manjit in the right upper quadrant and pelvis noted. Gross pneumoperitoneum is identified. Contrast is noted in the distal bowel. Impression: Persistently dilated loops of small bowel concerning for ongoing small bowel obstruction
[2017-04-22 11:00] VITALS: BP 144/76
--- NOTE | 2017-04-22 11:41 | PDOC ---
ARMANDO MCGEE [employer] 04/22/17 1141: SURGICAL PROGRESS NOTE Subjective up walking denies pain + flatus today Vital Signs Vital Signs Date Time Temp Pulse Resp B/P (MAP) Pulse Ox O2 Delivery O2 Flow Rate FiO2 04/22/17 07:45 Room Air 04/22/17 07:00 97.7 56 18 156/80 (105) 96 97.7 04/21/17 08:00 10.0 I&O Intake and Output 04/22/17 06:59 Intake Total 0 ml Output Total 1940 ml Balance -1940 ml Intake Oral 0 ml Output Urine Total 800 ml Gastric Drainage Total 800 ml Drainage Total 340 ml General: Alert, Oriented X3, Cooperative, No acute distress Abdomen: Soft, Other (distended, mild to moderate, LIT serosang, incision c/d/i , no erythema ) Labs Laboratory Tests Test 04/21/17 03:40 04/22/17 04:14 White Blood Count 18.3 x10^3/uL (4.0-11.0) 15.9 x10^3/uL (4.0-11.0) Red Blood Count 4.02 x10^6/uL (4.30-5.70) 3.81 x10^6/uL (4.30-5.70) Hemoglobin 13.5 g/dL (13.0-17.5) 12.7 g/dL (13.0-17.5) Hematocrit 39.3 % (39.0-53.0) 36.9 % (39.0-53.0) Mean Corpuscular Volume 98 fL (79-100) 97 fL (79-100) Mean Corpuscular Hemoglobin 34 pg (25-35) 33 pg (25-35) Mean Corpuscular Hemoglobin Concent 34 g/dL (31-37) 34 g/dL (31-37) Red Cell Distribution Width 12.8 % (11.5-14.5) 12.7 % (11.5-14.5) Platelet Count 436 x10^3/uL (140-400) 444 x10^3/uL (140-400) Neutrophils (%) (Auto) 83 % (31-73) 77 % (31-73) Lymphocytes (%) (Auto) 12 % (24-48) 14 % (24-48) Monocytes (%) (Auto) 5 % (0-9) 6 % (0-9) Eosinophils (%) (Auto) 0 % (0-3) 2 % (0-3) Basophils (%) (Auto) 1 % (0-3) 0 % (0-3) Neutrophils # (Auto) 15.2 x10^3uL (1.8-7.7) 12.2 x10^3uL (1.8-7.7) Lymphocytes # (Auto) 2.1 x10^3/uL (1.0-4.8) 2.3 x10^3/uL (1.0-4.8) Monocytes # (Auto) 0.9 x10^3/uL (0.0-1.1) 0.9 x10^3/uL (0.0-1.1) Eosinophils # (Auto) 0.0 x10^3/uL (0.0-0.7) 0.4 x10^3/uL (0.0-0.7) Basophils # (Auto) 0.1 x10^3/uL (0.0-0.2) 0.1 x10^3/uL (0.0-0.2) Sodium Level 133 mmol/L (136-145) 134 mmol/L (136-145) Potassium Level 3.7 mmol/L (3.5-5.1) 3.8 mmol/L (3.5-5.1) Chloride Level 100 mmol/L (98-107) 101 mmol/L (98-107) Carbon Dioxide Level 23 mmol/L (21-32) 25 mmol/L (21-32) Anion Gap 10 (6-14) 8 (6-14) Blood Urea Nitrogen 16 mg/dL (8-26) 18 mg/dL (8-26) Creatinine 0.8 mg/dL (0.7-1.3) 0.7 mg/dL (0.7-1.3) Estimated GFR (Cockcroft-Gault) 93.5 109.1 Glucose Level 128 mg/dL (70-99) 133 mg/dL (70-99) Calcium Level 7.9 mg/dL (8.5-10.1) 8.1 mg/dL (8.5-10.1) Phosphorus Level 2.8 mg/dL (2.6-4.7) Magnesium Level 2.0 mg/dL (1.8-2.4) Laboratory Tests Test 04/22/17 04:14 White Blood Count 15.9 x10^3/uL (4.0-11.0) Red Blood Count 3.81 x10^6/uL (4.30-5.70) Hemoglobin 12.7 g/dL (13.0-17.5) Hematocrit 36.9 % (39.0-53.0) Mean Corpuscular Volume 97 fL (79-100) Mean Corpuscular Hemoglobin 33 pg (25-35) Mean Corpuscular Hemoglobin Concent 34 g/dL (31-37) Red Cell Distribution Width 12.7 % (11.5-14.5) Platelet Count 444 x10^3/uL (140-400) Neutrophils (%) (Auto) 77 % (31-73) Lymphocytes (%) (Auto) 14 % (24-48) Monocytes (%) (Auto) 6 % (0-9) Eosinophils (%) (Auto) 2 % (0-3) Basophils (%) (Auto) 0 % (0-3) Neutrophils # (Auto) 12.2 x10^3uL (1.8-7.7) Lymphocytes # (Auto) 2.3 x10^3/uL (1.0-4.8) Monocytes # (Auto) 0.9 x10^3/uL (0.0-1.1) Eosinophils # (Auto) 0.4 x10^3/uL (0.0-0.7) Basophils # (Auto) 0.1 x10^3/uL (0.0-0.2) Sodium Level 134 mmol/L (136-145) Potassium Level 3.8 mmol/L (3.5-5.1) Chloride Level 101 mmol/L (98-107) Carbon Dioxide Level 25 mmol/L (21-32) Anion Gap 8 (6-14) Blood Urea Nitrogen 18 mg/dL (8-26) Creatinine 0.7 mg/dL (0.7-1.3) Estimated GFR (Cockcroft-Gault) 109.1 Glucose Level 133 mg/dL (70-99) Calcium Level 8.1 mg/dL (8.5-10.1) Problem List Problems Medical Problems: (1) ETOH abuse Status: Acute Assessment/Plan s/p appy continue NG today, 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
[2017-04-22 15:00] VITALS: BP 161/75
[2017-04-22] MEDS: ENOXAPARIN 40 MG/0.4 ML SYRINGE. SQ SCH (15:10)
--- NOTE | 2017-04-22 15:14 | PDOC ---
PROGRESS NOTES Chief Complaint Chief Complaint acute abdominal pain with acute appendicitis s/p open appendectomy ETOH abuse early COPD, hyperlipids BPH hypophosphatemia mild malnutrition post op sbo vs ileus anemia post 1 u PRBC during sx plan: fu with sx npo, NGT AXR today showed sbo vs ileus, repeat XR today same waiting for bowel function,. 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, dc it since pt only used once in a day PTOT fu with sx clamp NGT tmr History of Present Illness History of Present Illness ROS: no fever, chills, sob or chest pain has flatus 04/22, no BM post op low greg severe N/V overnight , need NGT higher WBC BETTer 04/22 still significant NGT drain 300cc Vitals Vitals Vital Signs Date Time Temp Pulse Resp B/P (MAP) Pulse Ox O2 Delivery O2 Flow Rate FiO2 04/22/17 11:00 97.5 65 18 144/76 (98) 97 Room Air 97.5 04/21/17 08:00 10.0 Physical Exam General: Alert, Oriented X3, Cooperative, No acute distress Heart: Regular rate, Normal S1, Normal S2 Lungs: Clear Abdomen: Soft, Other (distended, mild to moderate, LIT serosang, incision c/d/i , no erythema ) Extremities: No cyanosis, No edema Skin: No rashes, No breakdown Labs LABS Laboratory Tests Test 04/22/17 04:14 White Blood Count 15.9 x10^3/uL (4.0-11.0) Red Blood Count 3.81 x10^6/uL (4.30-5.70) Hemoglobin 12.7 g/dL (13.0-17.5) Hematocrit 36.9 % (39.0-53.0) Mean Corpuscular Volume 97 fL (79-100) Mean Corpuscular Hemoglobin 33 pg (25-35) Mean Corpuscular Hemoglobin Concent 34 g/dL (31-37) Red Cell Distribution Width 12.7 % (11.5-14.5) Platelet Count 444 x10^3/uL (140-400) Neutrophils (%) (Auto) 77 % (31-73) Lymphocytes (%) (Auto) 14 % (24-48) Monocytes (%) (Auto) 6 % (0-9) Eosinophils (%) (Auto) 2 % (0-3) Basophils (%) (Auto) 0 % (0-3) Neutrophils # (Auto) 12.2 x10^3uL (1.8-7.7) Lymphocytes # (Auto) 2.3 x10^3/uL (1.0-4.8) Monocytes # (Auto) 0.9 x10^3/uL (0.0-1.1) Eosinophils # (Auto) 0.4 x10^3/uL (0.0-0.7) Basophils # (Auto) 0.1 x10^3/uL (0.0-0.2) Sodium Level 134 mmol/L (136-145) Potassium Level 3.8 mmol/L (3.5-5.1) Chloride Level 101 mmol/L (98-107) Carbon Dioxide Level 25 mmol/L (21-32) Anion Gap 8 (6-14) Blood Urea Nitrogen 18 mg/dL (8-26) Creatinine 0.7 mg/dL (0.7-1.3) Estimated GFR (Cockcroft-Gault) 109.1 Glucose Level 133 mg/dL (70-99) Calcium Level 8.1 mg/dL (8.5-10.1) Assessment and Plan Assessmemt and Plan Problems Medical Problems: (1) ETOH abuse Status: Acute Problems: Comment Review of Relevant I have reviewed the following items nika (where applicable) has been applied. Labs Laboratory Tests Test 04/21/17 03:40 04/22/17 04:14 White Blood Count 18.3 x10^3/uL (4.0-11.0) 15.9 x10^3/uL (4.0-11.0) Red Blood Count 4.02 x10^6/uL (4.30-5.70) 3.81 x10^6/uL (4.30-5.70) Hemoglobin 13.5 g/dL (13.0-17.5) 12.7 g/dL (13.0-17.5) Hematocrit 39.3 % (39.0-53.0) 36.9 % (39.0-53.0) Mean Corpuscular Volume 98 fL (79-100) 97 fL (79-100) Mean Corpuscular Hemoglobin 34 pg (25-35) 33 pg (25-35) Mean Corpuscular Hemoglobin Concent 34 g/dL (31-37) 34 g/dL (31-37) Red Cell Distribution Width 12.8 % (11.5-14.5) 12.7 % (11.5-14.5) Platelet Count 436 x10^3/uL (140-400) 444 x10^3/uL (140-400) Neutrophils (%) (Auto) 83 % (31-73) 77 % (31-73) Lymphocytes (%) (Auto) 12 % (24-48) 14 % (24-48) Monocytes (%) (Auto) 5 % (0-9) 6 % (0-9) Eosinophils (%) (Auto) 0 % (0-3) 2 % (0-3) Basophils (%) (Auto) 1 % (0-3) 0 % (0-3) Neutrophils # (Auto) 15.2 x10^3uL (1.8-7.7) 12.2 x10^3uL (1.8-7.7) Lymphocytes # (Auto) 2.1 x10^3/uL (1.0-4.8) 2.3 x10^3/uL (1.0-4.8) Monocytes # (Auto) 0.9 x10^3/uL (0.0-1.1) 0.9 x10^3/uL (0.0-1.1) Eosinophils # (Auto) 0.0 x10^3/uL (0.0-0.7) 0.4 x10^3/uL (0.0-0.7) Basophils # (Auto) 0.1 x10^3/uL (0.0-0.2) 0.1 x10^3/uL (0.0-0.2) Sodium Level 133 mmol/L (136-145) 134 mmol/L (136-145) Potassium Level 3.7 mmol/L (3.5-5.1) 3.8 mmol/L (3.5-5.1) Chloride Level 100 mmol/L (98-107) 101 mmol/L (98-107) Carbon Dioxide Level 23 mmol/L (21-32) 25 mmol/L (21-32) Anion Gap 10 (6-14) 8 (6-14) Blood Urea Nitrogen 16 mg/dL (8-26) 18 mg/dL (8-26) Creatinine 0.8 mg/dL (0.7-1.3) 0.7 mg/dL (0.7-1.3) Estimated GFR (Cockcroft-Gault) 93.5 109.1 Glucose Level 128 mg/dL (70-99) 133 mg/dL (70-99) Calcium Level 7.9 mg/dL (8.5-10.1) 8.1 mg/dL (8.5-10.1) Phosphorus Level 2.8 mg/dL (2.6-4.7) Magnesium Level 2.0 mg/dL (1.8-2.4) Laboratory Tests Test 04/22/17 04:14 White Blood Count 15.9 x10^3/uL (4.0-11.0) Red Blood Count 3.81 x10^6/uL (4.30-5.70) Hemoglobin 12.7 g/dL (13.0-17.5) Hematocrit 36.9 % (39.0-53.0) Mean Corpuscular Volume 97 fL (79-100) Mean Corpuscular Hemoglobin 33 pg (25-35) Mean Corpuscular Hemoglobin Concent 34 g/dL (31-37) Red Cell Distribution Width 12.7 % (11.5-14.5) Platelet Count 444 x10^3/uL (140-400) Neutrophils (%) (Auto) 77 % (31-73) Lymphocytes (%) (Auto) 14 % (24-48) Monocytes (%) (Auto) 6 % (0-9) Eosinophils (%) (Auto) 2 % (0-3) Basophils (%) (Auto) 0 % (0-3) Neutrophils # (Auto) 12.2 x10^3uL (1.8-7.7) Lymphocytes # (Auto) 2.3 x10^3/uL (1.0-4.8) Monocytes # (Auto) 0.9 x10^3/uL (0.0-1.1) Eosinophils # (Auto) 0.4 x10^3/uL (0.0-0.7) Basophils # (Auto) 0.1 x10^3/uL (0.0-0.2) Sodium Level 134 mmol/L (136-145) Potassium Level 3.8 mmol/L (3.5-5.1) Chloride Level 101 mmol/L (98-107) Carbon Dioxide Level 25 mmol/L (21-32) Anion Gap 8 (6-14) Blood Urea Nitrogen 18 mg/dL (8-26) Creatinine 0.7 mg/dL (0.7-1.3) Estimated GFR (Cockcroft-Gault) 109.1 Glucose Level 133 mg/dL (70-99) Calcium Level 8.1 mg/dL (8.5-10.1) Medications Current Medications Sodium Chloride 1,000 ml @ 1,000 mls/hr 1X ONCE IV Last administered on 04/18 17:14; Start 04/18/17 at 17:00; Stop 04/18/17 at 17:59; Status DC Metronidazole 100 ml @ 100 mls/hr Q8HRS IV Last administered on 04/22/17 05: 10; Start 04/18/17 at 23:00 Piperacillin Sod/ Tazobactam Sod 3.375 gm/Dextrose 50 ml @ 100 mls/hr 1X ONCE IV ; Start 04/18/17 at 17:15; Stop 04/18/17 at 17:44; Status UNV Piperacillin Sod/ Tazobactam Sod (Zosyn) 3.375 gm 1X ONCE IVP Last administered on 04/18/17 17:41; Start 04/18/17 at 17:15; Stop 04/18/17 at 17 :16; Status DC Metronidazole 100 ml @ 100 mls/hr 1X ONCE IV ; Start 04/18/17 at 17:15; Stop 04/18/17 at 18:14; Status DC Sevoflurane (Ultane) 60 ml STK-MED ONCE IH ; Start 04/18/17 at 17:36; Stop at 17:37; Status DC Fentanyl Citrate (Fentanyl 2ml Vial) 100 mcg STK-MED ONCE .ROUTE ; Start at 17:36; Stop 04/18/17 at 17:37; Status DC Neostigmine Methylsulfate (Bloxiverz) 10 mg STK-MED ONCE .ROUTE ; Start at 17:36; Stop 04/18/17 at 17:37; Status DC Succinylcholine Chloride (Anectine) 200 mg STK-MED ONCE .ROUTE ; Start at 17:36; Stop 04/18/17 at 17:37; Status DC Glycopyrrolate (Robinul) 1 mg STK-MED ONCE .ROUTE ; Start 04/18/17 at 17:37; Stop 04/18/17 at 17:38; Status DC Rocuronium Calvert (Zemuron) 50 mg STK-MED ONCE .ROUTE ; Start 04/18/17 at 17: 37; Stop 04/18/17 at 17:38; Status DC Propofol 20 ml @ As Directed STK-MED ONCE IV ; Start 04/18/17 at 17:37; Stop 04/18/17 at 17:38; Status DC Lidocaine HCl (Lidocaine Pf 2% Vial) 5 ml STK-MED ONCE .ROUTE ; Start 04/18/17 at 17:37; Stop 04/18/17 at 17:38; Status DC Dexamethasone Sodium Phosphate (Decadron) 20 mg STK-MED ONCE .ROUTE ; Start at 17:37; Stop 04/18/17 at 17:38; Status DC Ondansetron HCl (Zofran) 4 mg STK-MED ONCE .ROUTE ; Start 04/18/17 at 17:37; Stop 04/18/17 at 17:38; Status DC Tamsulosin HCl (Flomax) 0.4 mg DAILY PO Last administered on 04/20/17 09:01; Start 04/19/17 at 09:00 Losartan Potassium (Cozaar) 50 mg DAILY PO Last administered on 04/20/17 09: 01; Start 04/19/17 at 09:00 Multivitamins 10 ml/Thiamine HCl 100 mg/Ringer's Solution 1,011 ml @ 250 mls/ hr 1X ONCE IV Last administered on 04/19/17 01:24; Start 04/18/17 at 19:00 ; Stop 04/18/17 at 23:02; Status DC Ondansetron HCl (Zofran) 4 mg PRN Q6HRS PRN IV NAUSEA/VOMITING; Start at 19:00; Stop 04/18/17 at 22:00; Status DC Fentanyl Citrate (Fentanyl 2ml Vial) 25 mcg PRN Q5MIN PRN IV MILD PAIN; Start 04/18/17 at 19:00; Stop 04/18/17 at 22:00; Status DC Fentanyl Citrate (Fentanyl 2ml Vial) 50 mcg PRN Q5MIN PRN IV MODERATE PAIN; Start 04/18/17 at 19:00; Stop 04/18/17 at 22:00; Status DC Morphine Sulfate 1 mg PRN Q10MIN PRN IV SEVERE PAIN; Start 04/18/17 at 19:00; Stop 04/18/17 at 22:00; Status DC Ringer's Solution 1,000 ml @ 30 mls/hr Q24H IV ; Start 04/18/17 at 18:50; Stop 04/19/17 at 06:49; Status DC Lidocaine HCl (Xylocaine-Mpf 1% Vial) 2 ml 1X PRN PRN ID IV START; Start 04/18 at 19:00; Stop 04/18/17 at 22:00; Status DC Hydromorphone HCl (Dilaudid) 0.5 mg PRN Q10MIN PRN IV SEV PAIN, Second choice; Start 04/18/17 at 19:00; Stop 04/18/17 at 22:00; Status DC Prochlorperazine Edisylate (Compazine) 5 mg PACU PRN PRN IV NAUSEA, MRX1; Start 04/18/17 at 19:00; Stop 04/18/17 at 22:00; Status DC Bupivacaine HCl/ Epinephrine Bitart (Sensorcain-Mpf Epi 0.5%-[id number]) 30 ml STK -MED ONCE .ROUTE ; Start 04/18/17 at 19:16; Stop 04/18/17 at 19:17; Status DC Fentanyl Citrate (Fentanyl 2ml Vial) 100 mcg STK-MED ONCE .ROUTE ; Start at 19:49; Stop 04/18/17 at 19:50; Status DC Phenylephrine HCl 1 mg STK-MED ONCE IV ; Start 04/18/17 at 20:04; Stop at 20:05; Status DC Cellulose 1 each STK-MED ONCE .ROUTE Last administered on 04/18/17t 21:07; Start 04/18/17 at 20:35; Stop 04/18/17 at 20:36; Status DC Cellulose 1 each STK-MED ONCE .ROUTE ; Start 04/18/17 at 21:26; Stop 04/18/17 at 21:27; Status DC Hydromorphone HCl 30 ml @ 0 mls/hr CONT PRN PRN IV PROTOCOL Last administered on 04/18/17 23:53; Start 04/18/17 at 22:30; Stop 04/21/17 at 09:03; Status DC Morphine Sulfate 2 mg STK-MED ONCE .ROUTE ; Start 04/18/17 at 22:47; Stop at 22:48; Status DC Ondansetron HCl (Zofran) 4 mg PRN Q6HRS PRN IV NAUSEA/VOMITING; Start at 23:00; Stop 04/19/17 at 06:00; Status DC Fentanyl Citrate (Fentanyl 2ml Vial) 25 mcg PRN Q5MIN PRN IV MILD PAIN; Start 04/18/17 at 23:00; Stop 04/19/17 at 01:45; Status DC Fentanyl Citrate (Fentanyl 2ml Vial) 50 mcg PRN Q5MIN PRN IV MODERATE PAIN; Start 04/18/17 at 23:00; Stop 04/19/17 at 01:45; Status DC Morphine Sulfate 1 mg PRN Q10MIN PRN IV SEVERE PAIN Last administered on 22:53; Start 04/18/17 at 23:00; Stop 04/19/17 at 01:45; Status DC Hydromorphone HCl (Dilaudid) 0.5 mg PRN Q10MIN PRN IV SEV PAIN, Second choice Last administered on 04/18/17 23:30; Start 04/18/17 at 23:00; Stop 04/19/17 at 01:45; Status DC Prochlorperazine Edisylate (Compazine) 5 mg PACU PRN PRN IV NAUSEA, MRX1 Last administered on 04/18/17 22:59; Start 04/18/17 at 23:00; Stop 04/19/17 at 01 :45; Status DC Albuterol/ Ipratropium (Duoneb) 3 ml 1X PACU PRN NEB SEE COMMENTS Last administered on 04/18/17 23:13; Start 04/18/17 at 23:15; Stop 04/19/17 at 23 :14; Status DC Hydralazine HCl (Apresoline) 10 mg 1X PACU PRN PO HYPERTENSION, SEE COMMENTS; Start 04/18/17 at 23:30; Stop 04/19/17 at 01:45; Status DC Labetalol HCl (Normodyne) 20 mg PRN Q2HR PRN IVP HYPERTENSION, SEE COMMENTS; Start 04/19/17 at 01:45; Stop 04/19/17 at 15:19; Status DC Acetaminophen (Tylenol) 650 mg PRN Q6HRS PRN PO FEVER; Start 04/19/17 at 15:30 Ondansetron HCl (Zofran) 4 mg PRN Q6HRS PRN IV NAUSEA/VOMITING Last administered on 04/21/17 11:36; Start 04/19/17 at 15:30 Morphine Sulfate 2 mg PRN Q2HR PRN IV PAIN; Start 04/19/17 at 15:30 Tramadol HCl (Ultram) 50 mg PRN Q6HRS PRN PO PAIN; Start 04/19/17 at 15:30 Hydralazine HCl (Apresoline Inj) 10 mg PRN Q4HRS PRN IVP ELEVATED BP, SEE COMMENTS Last administered on 04/19/17 16:15; Start 04/19/17 at 15:30 Docusate Sodium (Colace) 100 mg PRN DAILY PRN PO CONSTIPATION; Start 04/19/17 at 15:30 Lorazepam (Ativan) 2 mg PRN Q4HRS PRN IV ANXIETY / AGITATION; Start 04/19/17 at 15:30 Multivitamins 10 ml/Thiamine HCl 100 mg/Dextrose/ Lactated Ringer's 1,011 ml @ 100 mls/hr Q24H IV ; Start 04/19/17 at 16:00; Stop 04/19/17 at 16:00; Status DC Amino Acids/ Glycerin/ Electrolytes 1,000 ml @ 80 mls/hr [id number] IV Last administered on 04/22/17 14:42; Start 04/19/17 at 15:30 Enoxaparin Sodium (Lovenox 40mg Syringe) 40 mg Q24H SQ Last administered on 15:44; Start 04/19/17 at 15:30 Famotidine (Pepcid Vial) 20 mg QHS IVP Last administered on 04/21/17 21:11; Start 04/19/17 at 21:00 Multivitamins 10 ml/Thiamine HCl 100 mg/Folic Acid 1 mg/Dextrose/ Lactated Ringer's 1,011.2 ml @ 100.02 mls/hr Q24H IV Last administered on 04/21/17 15 :44; Start 04/19/17 at 16:00; Stop 04/23/17 at 02:07 Sodium Phosphate 20 mmol/Dextrose 256.6667 ml @ 64.167 m... 1X ONCE IV Last administered on 04/20/17 09:03; Start 04/20/17 at 09:00; Stop 04/20/17 at 12 :59; Status DC Lorazepam (Ativan) 0.5 mg PRN 1X PRN IV ANXIETY / AGITATION Last administered on 04/21/17 02:00; Start 04/21/17 at 01:00 Diphenhydramine HCl (Benadryl) 25 mg PRN 1X PRN IVP INSOMNIA; Start 04/21/17 at 01:00 Acetaminophen (Acetaminophen Supp) 650 mg PRN Q6HRS PRN NC MILD PAIN / TEMP; Start 04/21/17 at 01:00 Sodium Chloride 1,000 ml @ 75 mls/hr [id number] IV Last administered on 08:27; Start 04/21/17 at 09:15 Ciprofloxacin/ Dextrose 200 ml @ 200 mls/hr Q12HR IV Last administered on 08:27; Start 04/21/17 at 13:30 Lorazepam (Ativan) 1 mg PRN Q2HR PRN IV Agitation, Anxiety Last administered on 04/21/17 19:20; Start 04/21/17 at 15:30 Hydromorphone HCl (Dilaudid) 0.5 mg PRN Q4HRS PRN IVP PAIN; Start 04/22/17 at 11:45 Active Scripts Active Reported [Ranitidine] PO [Flomax] PO [Losartan] PO DAILY [Vitamin] 1 PO DAILY [Aspirin] Mg PO DAILY Vitals/I & O Vital Sign - Last 24 Hours 04/21/17 04/21/17 04/21/17 04/22/17 19:20 20:00 23:03 03:13 Temp 98.4 98.3 98.4 98.4 98.3 98.4 Pulse 67 56 62 Resp 18 18 18 B/P (MAP) 128/72 (90) 154/86 (108) 138/80 (99) Pulse Ox 98 98 98 O2 Delivery Room Air Room Air Room Air Room Air 04/22/17 04/22/17 04/22/17 07:00 07:45 11:00 Temp 97.7 97.5 97.7 97.5 Pulse 56 65 Resp 18 B/P (MAP) 156/80 (105) 144/76 (98) Pulse Ox 96 97 O2 Delivery Room Air Room Air Room Air Intake and Output 04/21/17 04/21/17 04/22/17 14:59 22:59 06:59 Intake Total 0 ml Output Total 500 ml 930 ml 510 ml Balance -500 ml -930 ml -510 ml HERMINIO BUTLER MD Apr 22, 2017 15:14
[2017-04-22] MEDS: MULTIVIT INFUSN,ADULT 4,VIT K 10 ML, THIAMINE 100 MG, FOLIC ACID 1 MG in IV DEXTROSE 5%... IV SCH (16:55)
[2017-04-22 19:55] VITALS: BP 160/74
[2017-04-22] MEDS: FAMOTIDINE 20 MG/2 ML VIAL IVP SCH (21:50)
[2017-04-22 23:00] VITALS: BP 153/81
[2017-04-23 03:00] VITALS: BP 147/84
[2017-04-23 05:52] LABS: BASO % 0 % (0-3); EOS % 3 % (0-3); HEMOGLOBIN 12.2 g/dL (13.0-17.5); LYMPH # 2.1 x10^3/uL (1.0-4.8); LYMPH % 19 % (24-48); MEAN CORPUSCULAR HEMOGLOBIN 33 pg (25-35); MEAN CORPUSCULAR HGB CONC 35 g/dL (31-37); MEAN CORPUSCULAR VOLUME 96 fL (79-100); MONO % 7 % (0-9); NEUT % 71 % (31-73); PLATELET COUNT 469 x10^3/uL (140-400); RED BLOOD COUNT 3.65 x10^6/uL (4.30-5.70); RED CELL DISTRIBUTION WIDTH 12.5 % (11.5-14.5); WHITE BLOOD COUNT 11.3 x10^3/uL (4.0-11.0)
[2017-04-23 06:22] LABS: CALCIUM 7.7 mg/dL (8.5-10.1); CREATININE 0.7 mg/dL (0.7-1.3); GFR 109.1; POTASSIUM 3.8 mmol/L (3.5-5.1)
[2017-04-23] MEDS: IV NORMAL SALINE 1000ML BAG 1,000 ML IV SCH ×2 (06:22→14:35)
[2017-04-23 07:55] VITALS: BP 156/80
--- NOTE | 2017-04-23 08:40 | PDOC ---
SURGICAL PROGRESS NOTE Subjective + bm last night, + flatus NG clamped Vital Signs Vital Signs Date Time Temp Pulse Resp B/P (MAP) Pulse Ox O2 Delivery O2 Flow Rate FiO2 04/23/17 07:55 98.0 56 20 156/80 (105) 97 Room Air 98.0 I&O Intake and Output 04/23/17 06:59 Intake Total 2754 ml Output Total 300 ml Balance 2454 ml Intake Oral 0 ml IV Total 2754 ml Output Urine Total 150 ml Gastric Drainage Total 150 ml # Voids 5 # Bowel Movements 1 General: Alert, Oriented X3, Cooperative, No acute distress Abdomen: Soft, Other (NTTP, mildly distended(maybe rotund abdomen), sylwia serous) Labs Laboratory Tests Test 04/22/17 04:14 04/23/17 05:10 White Blood Count 15.9 x10^3/uL (4.0-11.0) 11.3 x10^3/uL (4.0-11.0) Red Blood Count 3.81 x10^6/uL (4.30-5.70) 3.65 x10^6/uL (4.30-5.70) Hemoglobin 12.7 g/dL (13.0-17.5) 12.2 g/dL (13.0-17.5) Hematocrit 36.9 % (39.0-53.0) 35.0 % (39.0-53.0) Mean Corpuscular Volume 97 fL (79-100) 96 fL (79-100) Mean Corpuscular Hemoglobin 33 pg (25-35) 33 pg (25-35) Mean Corpuscular Hemoglobin Concent 34 g/dL (31-37) 35 g/dL (31-37) Red Cell Distribution Width 12.7 % (11.5-14.5) 12.5 % (11.5-14.5) Platelet Count 444 x10^3/uL (140-400) 469 x10^3/uL (140-400) Neutrophils (%) (Auto) 77 % (31-73) 71 % (31-73) Lymphocytes (%) (Auto) 14 % (24-48) 19 % (24-48) Monocytes (%) (Auto) 6 % (0-9) 7 % (0-9) Eosinophils (%) (Auto) 2 % (0-3) 3 % (0-3) Basophils (%) (Auto) 0 % (0-3) 0 % (0-3) Neutrophils # (Auto) 12.2 x10^3uL (1.8-7.7) 8.0 x10^3uL (1.8-7.7) Lymphocytes # (Auto) 2.3 x10^3/uL (1.0-4.8) 2.1 x10^3/uL (1.0-4.8) Monocytes # (Auto) 0.9 x10^3/uL (0.0-1.1) 0.8 x10^3/uL (0.0-1.1) Eosinophils # (Auto) 0.4 x10^3/uL (0.0-0.7) 0.3 x10^3/uL (0.0-0.7) Basophils # (Auto) 0.1 x10^3/uL (0.0-0.2) 0.0 x10^3/uL (0.0-0.2) Sodium Level 134 mmol/L (136-145) 134 mmol/L (136-145) Potassium Level 3.8 mmol/L (3.5-5.1) 3.8 mmol/L (3.5-5.1) Chloride Level 101 mmol/L (98-107) 103 mmol/L (98-107) Carbon Dioxide Level 25 mmol/L (21-32) 23 mmol/L (21-32) Anion Gap 8 (6-14) 8 (6-14) Blood Urea Nitrogen 18 mg/dL (8-26) 14 mg/dL (8-26) Creatinine 0.7 mg/dL (0.7-1.3) 0.7 mg/dL (0.7-1.3) Estimated GFR (Cockcroft-Gault) 109.1 109.1 Glucose Level 133 mg/dL (70-99) 101 mg/dL (70-99) Calcium Level 8.1 mg/dL (8.5-10.1) 7.7 mg/dL (8.5-10.1) Laboratory Tests Test 04/23/17 05:10 White Blood Count 11.3 x10^3/uL (4.0-11.0) Red Blood Count 3.65 x10^6/uL (4.30-5.70) Hemoglobin 12.2 g/dL (13.0-17.5) Hematocrit 35.0 % (39.0-53.0) Mean Corpuscular Volume 96 fL (79-100) Mean Corpuscular Hemoglobin 33 pg (25-35) Mean Corpuscular Hemoglobin Concent 35 g/dL (31-37) Red Cell Distribution Width 12.5 % (11.5-14.5) Platelet Count 469 x10^3/uL (140-400) Neutrophils (%) (Auto) 71 % (31-73) Lymphocytes (%) (Auto) 19 % (24-48) Monocytes (%) (Auto) 7 % (0-9) Eosinophils (%) (Auto) 3 % (0-3) Basophils (%) (Auto) 0 % (0-3) Neutrophils # (Auto) 8.0 x10^3uL (1.8-7.7) Lymphocytes # (Auto) 2.1 x10^3/uL (1.0-4.8) Monocytes # (Auto) 0.8 x10^3/uL (0.0-1.1) Eosinophils # (Auto) 0.3 x10^3/uL (0.0-0.7) Basophils # (Auto) 0.0 x10^3/uL (0.0-0.2) Sodium Level 134 mmol/L (136-145) Potassium Level 3.8 mmol/L (3.5-5.1) Chloride Level 103 mmol/L (98-107) Carbon Dioxide Level 23 mmol/L (21-32) Anion Gap 8 (6-14) Blood Urea Nitrogen 14 mg/dL (8-26) Creatinine 0.7 mg/dL (0.7-1.3) Estimated GFR (Cockcroft-Gault) 109.1 Glucose Level 101 mg/dL (70-99) Calcium Level 7.7 mg/dL (8.5-10.1) Problem List Problems Medical Problems: (1) ETOH abuse Status: Acute Assessment/Plan will clamp NG today Problems: ARMANDO MCGEE [employer] Apr 23, 2017 08:40
[2017-04-23] MEDS: TAMSULOSIN 0.4 MG CAP.ER.24H. PO SCH (09:00)
[2017-04-23] MEDS: LOSARTAN POTASSIUM 50 MG TABLET. PO SCH (09:00)
[2017-04-23] MEDS: CIPROFLOXACIN 400MG PREMIX 200 ML IV SCH ×2 (09:25→20:46)
[2017-04-23 11:05] VITALS: BP 156/78
[2017-04-23] MEDS: AMINO AC 3%/ELECTROLYTE/GLYCER 1,000 ML IV SCH ×2 (15:01→19:30)
[2017-04-23 15:35] VITALS: BP 168/86
[2017-04-23] MEDS: ENOXAPARIN 40 MG/0.4 ML SYRINGE. SQ SCH (16:31)
--- NOTE | 2017-04-23 18:10 | PDOC ---
PROGRESS NOTES Chief Complaint Chief Complaint acute abdominal pain with acute appendicitis s/p open appendectomy ETOH abuse early COPD, hyperlipids BPH hypophosphatemia mild malnutrition post op sbo vs ileus anemia post 1 u PRBC during sx sbo vs ileus, waiting for bowel function,. has flatus now on PPN, ivf, on flagyl, PTOT pain control good History of Present Illness History of Present Illness ROS: no fever, chills, sob or chest pain has flatus - no stool N/V is improved, feels bloated, NG tube clamped today Vitals Vitals Vital Signs Date Time Temp Pulse Resp B/P (MAP) Pulse Ox O2 Delivery O2 Flow Rate FiO2 04/23/17 15:35 98.5 53 18 168/86 (113) 97 Room Air 98.5 Physical Exam General: Alert, Oriented X3, Cooperative, No acute distress Heart: Regular rate, Normal S1, Normal S2 Lungs: Clear Abdomen: Soft, Other (NTTP, mildly distended(maybe rotund abdomen), sylwia serous) Extremities: No cyanosis, No edema Skin: No rashes, No breakdown Labs LABS Laboratory Tests Test 04/23/17 05:10 White Blood Count 11.3 x10^3/uL (4.0-11.0) Red Blood Count 3.65 x10^6/uL (4.30-5.70) Hemoglobin 12.2 g/dL (13.0-17.5) Hematocrit 35.0 % (39.0-53.0) Mean Corpuscular Volume 96 fL (79-100) Mean Corpuscular Hemoglobin 33 pg (25-35) Mean Corpuscular Hemoglobin Concent 35 g/dL (31-37) Red Cell Distribution Width 12.5 % (11.5-14.5) Platelet Count 469 x10^3/uL (140-400) Neutrophils (%) (Auto) 71 % (31-73) Lymphocytes (%) (Auto) 19 % (24-48) Monocytes (%) (Auto) 7 % (0-9) Eosinophils (%) (Auto) 3 % (0-3) Basophils (%) (Auto) 0 % (0-3) Neutrophils # (Auto) 8.0 x10^3uL (1.8-7.7) Lymphocytes # (Auto) 2.1 x10^3/uL (1.0-4.8) Monocytes # (Auto) 0.8 x10^3/uL (0.0-1.1) Eosinophils # (Auto) 0.3 x10^3/uL (0.0-0.7) Basophils # (Auto) 0.0 x10^3/uL (0.0-0.2) Sodium Level 134 mmol/L (136-145) Potassium Level 3.8 mmol/L (3.5-5.1) Chloride Level 103 mmol/L (98-107) Carbon Dioxide Level 23 mmol/L (21-32) Anion Gap 8 (6-14) Blood Urea Nitrogen 14 mg/dL (8-26) Creatinine 0.7 mg/dL (0.7-1.3) Estimated GFR (Cockcroft-Gault) 109.1 Glucose Level 101 mg/dL (70-99) Calcium Level 7.7 mg/dL (8.5-10.1) Review of Systems Review of Systems no n.vd. Assessment and Plan Assessmemt and Plan Problems Medical Problems: (1) ETOH abuse Status: Acute Problems: Comment Review of Relevant I have reviewed the following items nika (where applicable) has been applied. Labs Laboratory Tests Test 04/22/17 04:14 04/23/17 05:10 White Blood Count 15.9 x10^3/uL (4.0-11.0) 11.3 x10^3/uL (4.0-11.0) Red Blood Count 3.81 x10^6/uL (4.30-5.70) 3.65 x10^6/uL (4.30-5.70) Hemoglobin 12.7 g/dL (13.0-17.5) 12.2 g/dL (13.0-17.5) Hematocrit 36.9 % (39.0-53.0) 35.0 % (39.0-53.0) Mean Corpuscular Volume 97 fL (79-100) 96 fL (79-100) Mean Corpuscular Hemoglobin 33 pg (25-35) 33 pg (25-35) Mean Corpuscular Hemoglobin Concent 34 g/dL (31-37) 35 g/dL (31-37) Red Cell Distribution Width 12.7 % (11.5-14.5) 12.5 % (11.5-14.5) Platelet Count 444 x10^3/uL (140-400) 469 x10^3/uL (140-400) Neutrophils (%) (Auto) 77 % (31-73) 71 % (31-73) Lymphocytes (%) (Auto) 14 % (24-48) 19 % (24-48) Monocytes (%) (Auto) 6 % (0-9) 7 % (0-9) Eosinophils (%) (Auto) 2 % (0-3) 3 % (0-3) Basophils (%) (Auto) 0 % (0-3) 0 % (0-3) Neutrophils # (Auto) 12.2 x10^3uL (1.8-7.7) 8.0 x10^3uL (1.8-7.7) Lymphocytes # (Auto) 2.3 x10^3/uL (1.0-4.8) 2.1 x10^3/uL (1.0-4.8) Monocytes # (Auto) 0.9 x10^3/uL (0.0-1.1) 0.8 x10^3/uL (0.0-1.1) Eosinophils # (Auto) 0.4 x10^3/uL (0.0-0.7) 0.3 x10^3/uL (0.0-0.7) Basophils # (Auto) 0.1 x10^3/uL (0.0-0.2) 0.0 x10^3/uL (0.0-0.2) Sodium Level 134 mmol/L (136-145) 134 mmol/L (136-145) Potassium Level 3.8 mmol/L (3.5-5.1) 3.8 mmol/L (3.5-5.1) Chloride Level 101 mmol/L (98-107) 103 mmol/L (98-107) Carbon Dioxide Level 25 mmol/L (21-32) 23 mmol/L (21-32) Anion Gap 8 (6-14) 8 (6-14) Blood Urea Nitrogen 18 mg/dL (8-26) 14 mg/dL (8-26) Creatinine 0.7 mg/dL (0.7-1.3) 0.7 mg/dL (0.7-1.3) Estimated GFR (Cockcroft-Gault) 109.1 109.1 Glucose Level 133 mg/dL (70-99) 101 mg/dL (70-99) Calcium Level 8.1 mg/dL (8.5-10.1) 7.7 mg/dL (8.5-10.1) Laboratory Tests Test 04/23/17 05:10 White Blood Count 11.3 x10^3/uL (4.0-11.0) Red Blood Count 3.65 x10^6/uL (4.30-5.70) Hemoglobin 12.2 g/dL (13.0-17.5) Hematocrit 35.0 % (39.0-53.0) Mean Corpuscular Volume 96 fL (79-100) Mean Corpuscular Hemoglobin 33 pg (25-35) Mean Corpuscular Hemoglobin Concent 35 g/dL (31-37) Red Cell Distribution Width 12.5 % (11.5-14.5) Platelet Count 469 x10^3/uL (140-400) Neutrophils (%) (Auto) 71 % (31-73) Lymphocytes (%) (Auto) 19 % (24-48) Monocytes (%) (Auto) 7 % (0-9) Eosinophils (%) (Auto) 3 % (0-3) Basophils (%) (Auto) 0 % (0-3) Neutrophils # (Auto) 8.0 x10^3uL (1.8-7.7) Lymphocytes # (Auto) 2.1 x10^3/uL (1.0-4.8) Monocytes # (Auto) 0.8 x10^3/uL (0.0-1.1) Eosinophils # (Auto) 0.3 x10^3/uL (0.0-0.7) Basophils # (Auto) 0.0 x10^3/uL (0.0-0.2) Sodium Level 134 mmol/L (136-145) Potassium Level 3.8 mmol/L (3.5-5.1) Chloride Level 103 mmol/L (98-107) Carbon Dioxide Level 23 mmol/L (21-32) Anion Gap 8 (6-14) Blood Urea Nitrogen 14 mg/dL (8-26) Creatinine 0.7 mg/dL (0.7-1.3) Estimated GFR (Cockcroft-Gault) 109.1 Glucose Level 101 mg/dL (70-99) Calcium Level 7.7 mg/dL (8.5-10.1) Medications Current Medications Sodium Chloride 1,000 ml @ 1,000 mls/hr 1X ONCE IV Last administered on 04/18 17:14; Start 04/18/17 at 17:00; Stop 04/18/17 at 17:59; Status DC Metronidazole 100 ml @ 100 mls/hr Q8HRS IV Last administered on 04/23/17 15: 00; Start 04/18/17 at 23:00 Piperacillin Sod/ Tazobactam Sod 3.375 gm/Dextrose 50 ml @ 100 mls/hr 1X ONCE IV ; Start 04/18/17 at 17:15; Stop 04/18/17 at 17:44; Status UNV Piperacillin Sod/ Tazobactam Sod (Zosyn) 3.375 gm 1X ONCE IVP Last administered on 04/18/17 17:41; Start 04/18/17 at 17:15; Stop 04/18/17 at 17 :16; Status DC Metronidazole 100 ml @ 100 mls/hr 1X ONCE IV ; Start 04/18/17 at 17:15; Stop 04/18/17 at 18:14; Status DC Sevoflurane (Ultane) 60 ml STK-MED ONCE IH ; Start 04/18/17 at 17:36; Stop at 17:37; Status DC Fentanyl Citrate (Fentanyl 2ml Vial) 100 mcg STK-MED ONCE .ROUTE ; Start at 17:36; Stop 04/18/17 at 17:37; Status DC Neostigmine Methylsulfate (Bloxiverz) 10 mg STK-MED ONCE .ROUTE ; Start at 17:36; Stop 04/18/17 at 17:37; Status DC Succinylcholine Chloride (Anectine) 200 mg STK-MED ONCE .ROUTE ; Start at 17:36; Stop 04/18/17 at 17:37; Status DC Glycopyrrolate (Robinul) 1 mg STK-MED ONCE .ROUTE ; Start 04/18/17 at 17:37; Stop 04/18/17 at 17:38; Status DC Rocuronium [place] (Zemuron) 50 mg STK-MED ONCE .ROUTE ; Start 04/18/17 at 17: 37; Stop 04/18/17 at 17:38; Status DC Propofol 20 ml @ As Directed STK-MED ONCE IV ; Start 04/18/17 at 17:37; Stop 04/18/17 at 17:38; Status DC Lidocaine HCl (Lidocaine Pf 2% Vial) 5 ml STK-MED ONCE .ROUTE ; Start 04/18/17 at 17:37; Stop 04/18/17 at 17:38; Status DC Dexamethasone Sodium Phosphate (Decadron) 20 mg STK-MED ONCE .ROUTE ; Start at 17:37; Stop 04/18/17 at 17:38; Status DC Ondansetron HCl (Zofran) 4 mg STK-MED ONCE .ROUTE ; Start 04/18/17 at 17:37; Stop 04/18/17 at 17:38; Status DC Tamsulosin HCl (Flomax) 0.4 mg DAILY PO Last administered on 04/20/17 09:01; Start 04/19/17 at 09:00 Losartan Potassium (Cozaar) 50 mg DAILY PO Last administered on 04/20/17 09: 01; Start 04/19/17 at 09:00 Multivitamins 10 ml/Thiamine HCl 100 mg/Ringer's Solution 1,011 ml @ 250 mls/ hr 1X ONCE IV Last administered on 04/19/17 01:24; Start 04/18/17 at 19:00 ; Stop 04/18/17 at 23:02; Status DC Ondansetron HCl (Zofran) 4 mg PRN Q6HRS PRN IV NAUSEA/VOMITING; Start at 19:00; Stop 04/18/17 at 22:00; Status DC Fentanyl Citrate (Fentanyl 2ml Vial) 25 mcg PRN Q5MIN PRN IV MILD PAIN; Start 04/18/17 at 19:00; Stop 04/18/17 at 22:00; Status DC Fentanyl Citrate (Fentanyl 2ml Vial) 50 mcg PRN Q5MIN PRN IV MODERATE PAIN; Start 04/18/17 at 19:00; Stop 04/18/17 at 22:00; Status DC Morphine Sulfate 1 mg PRN Q10MIN PRN IV SEVERE PAIN; Start 04/18/17 at 19:00; Stop 04/18/17 at 22:00; Status DC Ringer's Solution 1,000 ml @ 30 mls/hr Q24H IV ; Start 04/18/17 at 18:50; Stop 04/19/17 at 06:49; Status DC Lidocaine HCl (Xylocaine-Mpf 1% Vial) 2 ml 1X PRN PRN ID IV START; Start 04/18 at 19:00; Stop 04/18/17 at 22:00; Status DC Hydromorphone HCl (Dilaudid) 0.5 mg PRN Q10MIN PRN IV SEV PAIN, Second choice; Start 04/18/17 at 19:00; Stop 04/18/17 at 22:00; Status DC Prochlorperazine Edisylate (Compazine) 5 mg PACU PRN PRN IV NAUSEA, MRX1; Start 04/18/17 at 19:00; Stop 04/18/17 at 22:00; Status DC Bupivacaine HCl/ Epinephrine Bitart (Sensorcain-Mpf Epi 0.5%-[id number]) 30 ml STK -MED ONCE .ROUTE ; Start 04/18/17 at 19:16; Stop 04/18/17 at 19:17; Status DC Fentanyl Citrate (Fentanyl 2ml Vial) 100 mcg STK-MED ONCE .ROUTE ; Start at 19:49; Stop 04/18/17 at 19:50; Status DC Phenylephrine HCl 1 mg STK-MED ONCE IV ; Start 04/18/17 at 20:04; Stop at 20:05; Status DC Cellulose 1 each STK-MED ONCE .ROUTE Last administered on 04/18/17t 21:07; Start 04/18/17 at 20:35; Stop 04/18/17 at 20:36; Status DC Cellulose 1 each STK-MED ONCE .ROUTE ; Start 04/18/17 at 21:26; Stop 04/18/17 at 21:27; Status DC Hydromorphone HCl 30 ml @ 0 mls/hr CONT PRN PRN IV PROTOCOL Last administered on 04/18/17t 23:53; Start 04/18/17 at 22:30; Stop 04/21/17 at 09:03; Status DC Morphine Sulfate 2 mg STK-MED ONCE .ROUTE ; Start 04/18/17 at 22:47; Stop at 22:48; Status DC Ondansetron HCl (Zofran) 4 mg PRN Q6HRS PRN IV NAUSEA/VOMITING; Start at 23:00; Stop 04/19/17 at 06:00; Status DC Fentanyl Citrate (Fentanyl 2ml Vial) 25 mcg PRN Q5MIN PRN IV MILD PAIN; Start 04/18/17 at 23:00; Stop 04/19/17 at 01:45; Status DC Fentanyl Citrate (Fentanyl 2ml Vial) 50 mcg PRN Q5MIN PRN IV MODERATE PAIN; Start 04/18/17 at 23:00; Stop 04/19/17 at 01:45; Status DC Morphine Sulfate 1 mg PRN Q10MIN PRN IV SEVERE PAIN Last administered on 22:53; Start 04/18/17 at 23:00; Stop 04/19/17 at 01:45; Status DC Hydromorphone HCl (Dilaudid) 0.5 mg PRN Q10MIN PRN IV SEV PAIN, Second choice Last administered on 04/18/17 23:30; Start 04/18/17 at 23:00; Stop 04/19/17 at 01:45; Status DC Prochlorperazine Edisylate (Compazine) 5 mg PACU PRN PRN IV NAUSEA, MRX1 Last administered on 04/18/17 22:59; Start 04/18/17 at 23:00; Stop 04/19/17 at 01 :45; Status DC Albuterol/ Ipratropium (Duoneb) 3 ml 1X PACU PRN NEB SEE COMMENTS Last administered on 04/18/17 23:13; Start 04/18/17 at 23:15; Stop 04/19/17 at 23 :14; Status DC Hydralazine HCl (Apresoline) 10 mg 1X PACU PRN PO HYPERTENSION, SEE COMMENTS; Start 04/18/17 at 23:30; Stop 04/19/17 at 01:45; Status DC Labetalol HCl (Normodyne) 20 mg PRN Q2HR PRN IVP HYPERTENSION, SEE COMMENTS; Start 04/19/17 at 01:45; Stop 04/19/17 at 15:19; Status DC Acetaminophen (Tylenol) 650 mg PRN Q6HRS PRN PO FEVER; Start 04/19/17 at 15:30 Ondansetron HCl (Zofran) 4 mg PRN Q6HRS PRN IV NAUSEA/VOMITING Last administered on 04/21/17 11:36; Start 04/19/17 at 15:30 Morphine Sulfate 2 mg PRN Q2HR PRN IV PAIN; Start 04/19/17 at 15:30 Tramadol HCl (Ultram) 50 mg PRN Q6HRS PRN PO PAIN; Start 04/19/17 at 15:30 Hydralazine HCl (Apresoline Inj) 10 mg PRN Q4HRS PRN IVP ELEVATED BP, SEE COMMENTS Last administered on 04/19/17 16:15; Start 04/19/17 at 15:30 Docusate Sodium (Colace) 100 mg PRN DAILY PRN PO CONSTIPATION; Start 04/19/17 at 15:30 Lorazepam (Ativan) 2 mg PRN Q4HRS PRN IV ANXIETY / AGITATION Last administered on 04/22/17 21:46; Start 04/19/17 at 15:30 Multivitamins 10 ml/Thiamine HCl 100 mg/Dextrose/ Lactated Ringer's 1,011 ml @ 100 mls/hr Q24H IV ; Start 04/19/17 at 16:00; Stop 04/19/17 at 16:00; Status DC Amino Acids/ Glycerin/ Electrolytes 1,000 ml @ 80 mls/hr [id number] IV Last administered on 04/23/17 15:01; Start 04/19/17 at 15:30 Enoxaparin Sodium (Lovenox 40mg Syringe) 40 mg Q24H SQ Last administered on 16:31; Start 04/19/17 at 15:30 Famotidine (Pepcid Vial) 20 mg QHS IVP Last administered on 04/22/17 21:50; Start 04/19/17 at 21:00 Multivitamins 10 ml/Thiamine HCl 100 mg/Folic Acid 1 mg/Dextrose/ Lactated Ringer's 1,011.2 ml @ 100.02 mls/hr Q24H IV Last administered on 04/22/17 16 :55; Start 04/19/17 at 16:00; Stop 04/23/17 at 02:07; Status DC Sodium Phosphate 20 mmol/Dextrose 256.6667 ml @ 64.167 m... 1X ONCE IV Last administered on 04/20/17 09:03; Start 04/20/17 at 09:00; Stop 04/20/17 at 12 :59; Status DC Lorazepam (Ativan) 0.5 mg PRN 1X PRN IV ANXIETY / AGITATION Last administered on 04/21/17 02:00; Start 04/21/17 at 01:00 Diphenhydramine HCl (Benadryl) 25 mg PRN 1X PRN IVP INSOMNIA; Start 04/21/17 at 01:00 Acetaminophen (Acetaminophen Supp) 650 mg PRN Q6HRS PRN MO MILD PAIN / TEMP; Start 04/21/17 at 01:00 Sodium Chloride 1,000 ml @ 75 mls/hr [id number] IV Last administered on 06:22; Start 04/21/17 at 09:15 Ciprofloxacin/ Dextrose 200 ml @ 200 mls/hr Q12HR IV Last administered on 09:25; Start 04/21/17 at 13:30 Lorazepam (Ativan) 1 mg PRN Q2HR PRN IV Agitation, Anxiety Last administered on 04/21/17 19:20; Start 04/21/17 at 15:30 Hydromorphone HCl (Dilaudid) 0.5 mg PRN Q4HRS PRN IVP PAIN; Start 04/22/17 at 11:45 Active Scripts Active Reported [Ranitidine] PO [Flomax] PO [Losartan] PO DAILY [Vitamin] 1 PO DAILY [Aspirin] Mg PO DAILY Vitals/I & O Vital Sign - Last 24 Hours 04/22/17 04/22/17 04/22/17 04/23/17 19:55 20:00 23:00 03:00 Temp 98.1 97.8 97.7 98.1 97.8 97.7 Pulse 54 60 57 Resp 16 18 18 B/P (MAP) 160/74 (102) 153/81 (105) 147/84 (105) Pulse Ox 93 93 95 O2 Delivery Room Air Room Air Room Air Room Air 04/23/17 04/23/17 04/23/17 04/23/17 07:55 08:00 11:05 15:35 Temp 98.0 97.5 98.5 98.0 97.5 98.5 Pulse 56 55 53 Resp 20 20 18 B/P (MAP) 156/80 (105) 156/78 (104) 168/86 (113) Pulse Ox 97 97 97 O2 Delivery Room Air Room Air Room Air Room Air Intake and Output 04/22/17 04/22/17 04/23/17 15:00 23:00 07:00 Intake Total 1319 ml 1435 ml Output Total 150 ml 150 ml Balance 1169 ml 1285 ml CINDY NELSON MD Apr 23, 2017 18:10
[2017-04-23 19:20] VITALS: BP 161/83
[2017-04-23] MEDS: FAMOTIDINE 20 MG/2 ML VIAL IVP SCH (20:47)
[2017-04-23 23:15] VITALS: BP 164/79
[2017-04-24 03:02] VITALS: BP 160/80
[2017-04-24] MEDS: IV NORMAL SALINE 1000ML BAG 1,000 ML IV SCH (03:55)
[2017-04-24] MEDS: AMINO AC 3%/ELECTROLYTE/GLYCER 1,000 ML IV SCH ×2 (06:13→18:16)
[2017-04-24 07:32] VITALS: BP 167/93
[2017-04-24] MEDS: CIPROFLOXACIN 400MG PREMIX 200 ML IV SCH ×2 (08:12→19:14)
--- NOTE | 2017-04-24 08:52 | PDOC ---
SURGICAL PROGRESS NOTE Subjective + loose stools and flatus NG clamped > 24hrs Vital Signs Vital Signs Date Time Temp Pulse Resp B/P (MAP) Pulse Ox O2 Delivery O2 Flow Rate FiO2 04/24/17 07:30 Room Air 04/24/17 03:02 98.4 62 18 160/80 (106) 97 98.4 I&O Intake and Output 04/24/17 07:00 Intake Total 1100 ml Output Total 2530 ml Balance -1430 ml Intake Oral 0 ml IV Total 1100 ml Output Urine Total 2475 ml Drainage Total 55 ml # Voids 5 # Bowel Movements 3 General: Alert, Oriented X3, Cooperative, No acute distress Abdomen: Soft, No tenderness, Other (no drainage in drain, incision c/d/i, no erythema ) Labs Laboratory Tests Test 04/23/17 05:10 White Blood Count 11.3 x10^3/uL (4.0-11.0) Red Blood Count 3.65 x10^6/uL (4.30-5.70) Hemoglobin 12.2 g/dL (13.0-17.5) Hematocrit 35.0 % (39.0-53.0) Mean Corpuscular Volume 96 fL (79-100) Mean Corpuscular Hemoglobin 33 pg (25-35) Mean Corpuscular Hemoglobin Concent 35 g/dL (31-37) Red Cell Distribution Width 12.5 % (11.5-14.5) Platelet Count 469 x10^3/uL (140-400) Neutrophils (%) (Auto) 71 % (31-73) Lymphocytes (%) (Auto) 19 % (24-48) Monocytes (%) (Auto) 7 % (0-9) Eosinophils (%) (Auto) 3 % (0-3) Basophils (%) (Auto) 0 % (0-3) Neutrophils # (Auto) 8.0 x10^3uL (1.8-7.7) Lymphocytes # (Auto) 2.1 x10^3/uL (1.0-4.8) Monocytes # (Auto) 0.8 x10^3/uL (0.0-1.1) Eosinophils # (Auto) 0.3 x10^3/uL (0.0-0.7) Basophils # (Auto) 0.0 x10^3/uL (0.0-0.2) Sodium Level 134 mmol/L (136-145) Potassium Level 3.8 mmol/L (3.5-5.1) Chloride Level 103 mmol/L (98-107) Carbon Dioxide Level 23 mmol/L (21-32) Anion Gap 8 (6-14) Blood Urea Nitrogen 14 mg/dL (8-26) Creatinine 0.7 mg/dL (0.7-1.3) Estimated GFR (Cockcroft-Gault) 109.1 Glucose Level 101 mg/dL (70-99) Calcium Level 7.7 mg/dL (8.5-10.1) Problem List Problems Medical Problems: (1) ETOH abuse Status: Acute Assessment/Plan s/p pravin Sy DC clears Problems: ARMANDO [employer] Apr 24, 2017 08:52
[2017-04-24] MEDS: TAMSULOSIN 0.4 MG CAP.ER.24H. PO SCH (09:52)
[2017-04-24] MEDS: LOSARTAN POTASSIUM 50 MG TABLET. PO SCH (09:53)
[2017-04-24 10:47] VITALS: BP 153/115
--- NOTE | 2017-04-24 14:24 | PDOC ---
PROGRESS NOTES Chief Complaint Chief Complaint acute abdominal pain with acute appendicitis s/p open appendectomy sbo vs ileus, ETOH abuse mild COPD, hyperlipidemia BPH hypophosphatemia mild malnutrition post op sbo vs ileus anemia post 1 u PRBC during sx History of Present Illness History of Present Illness ROS: no fever, chills, sob or chest pain has flatus - no stool N/V is improved, feels bloated, NG tube removed today cont PT and ot Vitals Vitals Vital Signs Date Time Temp Pulse Resp B/P (MAP) Pulse Ox O2 Delivery O2 Flow Rate FiO2 04/24/17 10:47 97.8 64 24 153/115 (128) 98 Room Air 97.8 Physical Exam General: Alert, Oriented X3, Cooperative, No acute distress Heart: Regular rate, Normal S1, Normal S2 Lungs: Clear Abdomen: Soft, No tenderness, Other (no drainage in drain, incision c/d/i, no erythema ) Extremities: No cyanosis, No edema Skin: No rashes, No breakdown Review of Systems Review of Systems no n.v.d ambulating better some bloating after clear liquids, Assessment and Plan Assessmemt and Plan Problems Medical Problems: (1) ETOH abuse Status: Acute Problems: Comment Review of Relevant I have reviewed the following items nika (where applicable) has been applied. Labs Laboratory Tests Test 04/23/17 05:10 White Blood Count 11.3 x10^3/uL (4.0-11.0) Red Blood Count 3.65 x10^6/uL (4.30-5.70) Hemoglobin 12.2 g/dL (13.0-17.5) Hematocrit 35.0 % (39.0-53.0) Mean Corpuscular Volume 96 fL (79-100) Mean Corpuscular Hemoglobin 33 pg (25-35) Mean Corpuscular Hemoglobin Concent 35 g/dL (31-37) Red Cell Distribution Width 12.5 % (11.5-14.5) Platelet Count 469 x10^3/uL (140-400) Neutrophils (%) (Auto) 71 % (31-73) Lymphocytes (%) (Auto) 19 % (24-48) Monocytes (%) (Auto) 7 % (0-9) Eosinophils (%) (Auto) 3 % (0-3) Basophils (%) (Auto) 0 % (0-3) Neutrophils # (Auto) 8.0 x10^3uL (1.8-7.7) Lymphocytes # (Auto) 2.1 x10^3/uL (1.0-4.8) Monocytes # (Auto) 0.8 x10^3/uL (0.0-1.1) Eosinophils # (Auto) 0.3 x10^3/uL (0.0-0.7) Basophils # (Auto) 0.0 x10^3/uL (0.0-0.2) Sodium Level 134 mmol/L (136-145) Potassium Level 3.8 mmol/L (3.5-5.1) Chloride Level 103 mmol/L (98-107) Carbon Dioxide Level 23 mmol/L (21-32) Anion Gap 8 (6-14) Blood Urea Nitrogen 14 mg/dL (8-26) Creatinine 0.7 mg/dL (0.7-1.3) Estimated GFR (Cockcroft-Gault) 109.1 Glucose Level 101 mg/dL (70-99) Calcium Level 7.7 mg/dL (8.5-10.1) Medications Current Medications Sodium Chloride 1,000 ml @ 1,000 mls/hr 1X ONCE IV Last administered on 04/18 17:14; Start 04/18/17 at 17:00; Stop 04/18/17 at 17:59; Status DC Metronidazole 100 ml @ 100 mls/hr Q8HRS IV Last administered on 04/24/17 06: 00; Start 04/18/17 at 23:00 Piperacillin Sod/ Tazobactam Sod 3.375 gm/Dextrose 50 ml @ 100 mls/hr 1X ONCE IV ; Start 04/18/17 at 17:15; Stop 04/18/17 at 17:44; Status UNV Piperacillin Sod/ Tazobactam Sod (Zosyn) 3.375 gm 1X ONCE IVP Last administered on 04/18/17 17:41; Start 04/18/17 at 17:15; Stop 04/18/17 at 17 :16; Status DC Metronidazole 100 ml @ 100 mls/hr 1X ONCE IV ; Start 04/18/17 at 17:15; Stop 04/18/17 at 18:14; Status DC Sevoflurane (Ultane) 60 ml STK-MED ONCE IH ; Start 04/18/17 at 17:36; Stop at 17:37; Status DC Fentanyl Citrate (Fentanyl 2ml Vial) 100 mcg STK-MED ONCE .ROUTE ; Start at 17:36; Stop 04/18/17 at 17:37; Status DC Neostigmine Methylsulfate (Bloxiverz) 10 mg STK-MED ONCE .ROUTE ; Start at 17:36; Stop 04/18/17 at 17:37; Status DC Succinylcholine Chloride (Anectine) 200 mg STK-MED ONCE .ROUTE ; Start at 17:36; Stop 04/18/17 at 17:37; Status DC Glycopyrrolate (Robinul) 1 mg STK-MED ONCE .ROUTE ; Start 04/18/17 at 17:37; Stop 04/18/17 at 17:38; Status DC Rocuronium [place] (Zemuron) 50 mg STK-MED ONCE .ROUTE ; Start 04/18/17 at 17: 37; Stop 04/18/17 at 17:38; Status DC Propofol 20 ml @ As Directed STK-MED ONCE IV ; Start 04/18/17 at 17:37; Stop 04/18/17 at 17:38; Status DC Lidocaine HCl (Lidocaine Pf 2% Vial) 5 ml STK-MED ONCE .ROUTE ; Start 04/18/17 at 17:37; Stop 04/18/17 at 17:38; Status DC Dexamethasone Sodium Phosphate (Decadron) 20 mg STK-MED ONCE .ROUTE ; Start at 17:37; Stop 04/18/17 at 17:38; Status DC Ondansetron HCl (Zofran) 4 mg STK-MED ONCE .ROUTE ; Start 04/18/17 at 17:37; Stop 04/18/17 at 17:38; Status DC Tamsulosin HCl (Flomax) 0.4 mg DAILY PO Last administered on 04/24/17 09:52; Start 04/19/17 at 09:00 Losartan Potassium (Cozaar) 50 mg DAILY PO Last administered on 04/24/17 09: 53; Start 04/19/17 at 09:00 Multivitamins 10 ml/Thiamine HCl 100 mg/Ringer's Solution 1,011 ml @ 250 mls/ hr 1X ONCE IV Last administered on 04/19/17t 01:24; Start 04/18/17 at 19:00 ; Stop 04/18/17 at 23:02; Status DC Ondansetron HCl (Zofran) 4 mg PRN Q6HRS PRN IV NAUSEA/VOMITING; Start at 19:00; Stop 04/18/17 at 22:00; Status DC Fentanyl Citrate (Fentanyl 2ml Vial) 25 mcg PRN Q5MIN PRN IV MILD PAIN; Start 04/18/17 at 19:00; Stop 04/18/17 at 22:00; Status DC Fentanyl Citrate (Fentanyl 2ml Vial) 50 mcg PRN Q5MIN PRN IV MODERATE PAIN; Start 04/18/17 at 19:00; Stop 04/18/17 at 22:00; Status DC Morphine Sulfate 1 mg PRN Q10MIN PRN IV SEVERE PAIN; Start 04/18/17 at 19:00; Stop 04/18/17 at 22:00; Status DC Ringer's Solution 1,000 ml @ 30 mls/hr Q24H IV ; Start 04/18/17 at 18:50; Stop 04/19/17 at 06:49; Status DC Lidocaine HCl (Xylocaine-Mpf 1% Vial) 2 ml 1X PRN PRN ID IV START; Start 04/18 at 19:00; Stop 04/18/17 at 22:00; Status DC Hydromorphone HCl (Dilaudid) 0.5 mg PRN Q10MIN PRN IV SEV PAIN, Second choice; Start 04/18/17 at 19:00; Stop 04/18/17 at 22:00; Status DC Prochlorperazine Edisylate (Compazine) 5 mg PACU PRN PRN IV NAUSEA, MRX1; Start 04/18/17 at 19:00; Stop 04/18/17 at 22:00; Status DC Bupivacaine HCl/ Epinephrine Bitart (Sensorcain-Mpf Epi 0.5%-1:122337) 30 ml STK -MED ONCE .ROUTE ; Start 04/18/17 at 19:16; Stop 04/18/17 at 19:17; Status DC Fentanyl Citrate (Fentanyl 2ml Vial) 100 mcg STK-MED ONCE .ROUTE ; Start at 19:49; Stop 04/18/17 at 19:50; Status DC Phenylephrine HCl 1 mg STK-MED ONCE IV ; Start 04/18/17 at 20:04; Stop at 20:05; Status DC Cellulose 1 each STK-MED ONCE .ROUTE Last administered on 04/18/17 21:07; Start 04/18/17 at 20:35; Stop 04/18/17 at 20:36; Status DC Cellulose 1 each STK-MED ONCE .ROUTE ; Start 04/18/17 at 21:26; Stop 04/18/17 at 21:27; Status DC Hydromorphone HCl 30 ml @ 0 mls/hr CONT PRN PRN IV PROTOCOL Last administered on 04/18/17 23:53; Start 04/18/17 at 22:30; Stop 04/21/17 at 09:03; Status DC Morphine Sulfate 2 mg STK-MED ONCE .ROUTE ; Start 04/18/17 at 22:47; Stop at 22:48; Status DC Ondansetron HCl (Zofran) 4 mg PRN Q6HRS PRN IV NAUSEA/VOMITING; Start at 23:00; Stop 04/19/17 at 06:00; Status DC Fentanyl Citrate (Fentanyl 2ml Vial) 25 mcg PRN Q5MIN PRN IV MILD PAIN; Start 04/18/17 at 23:00; Stop 04/19/17 at 01:45; Status DC Fentanyl Citrate (Fentanyl 2ml Vial) 50 mcg PRN Q5MIN PRN IV MODERATE PAIN; Start 04/18/17 at 23:00; Stop 04/19/17 at 01:45; Status DC Morphine Sulfate 1 mg PRN Q10MIN PRN IV SEVERE PAIN Last administered on 22:53; Start 04/18/17 at 23:00; Stop 04/19/17 at 01:45; Status DC Hydromorphone HCl (Dilaudid) 0.5 mg PRN Q10MIN PRN IV SEV PAIN, Second choice Last administered on 04/18/17 23:30; Start 04/18/17 at 23:00; Stop 04/19/17 at 01:45; Status DC Prochlorperazine Edisylate (Compazine) 5 mg PACU PRN PRN IV NAUSEA, MRX1 Last administered on 04/18/17 22:59; Start 04/18/17 at 23:00; Stop 04/19/17 at 01 :45; Status DC Albuterol/ Ipratropium (Duoneb) 3 ml 1X PACU PRN NEB SEE COMMENTS Last administered on 04/18/17 23:13; Start 04/18/17 at 23:15; Stop 04/19/17 at 23 :14; Status DC Hydralazine HCl (Apresoline) 10 mg 1X PACU PRN PO HYPERTENSION, SEE COMMENTS; Start 04/18/17 at 23:30; Stop 04/19/17 at 01:45; Status DC Labetalol HCl (Normodyne) 20 mg PRN Q2HR PRN IVP HYPERTENSION, SEE COMMENTS; Start 04/19/17 at 01:45; Stop 04/19/17 at 15:19; Status DC Acetaminophen (Tylenol) 650 mg PRN Q6HRS PRN PO FEVER; Start 04/19/17 at 15:30 Ondansetron HCl (Zofran) 4 mg PRN Q6HRS PRN IV NAUSEA/VOMITING Last administered on 04/21/17 11:36; Start 04/19/17 at 15:30 Morphine Sulfate 2 mg PRN Q2HR PRN IV PAIN; Start 04/19/17 at 15:30 Tramadol HCl (Ultram) 50 mg PRN Q6HRS PRN PO PAIN; Start 04/19/17 at 15:30 Hydralazine HCl (Apresoline Inj) 10 mg PRN Q4HRS PRN IVP ELEVATED BP, SEE COMMENTS Last administered on 04/19/17 16:15; Start 04/19/17 at 15:30 Docusate Sodium (Colace) 100 mg PRN DAILY PRN PO CONSTIPATION; Start 04/19/17 at 15:30 Lorazepam (Ativan) 2 mg PRN Q4HRS PRN IV ANXIETY / AGITATION Last administered on 04/23/17 23:01; Start 04/19/17 at 15:30 Multivitamins 10 ml/Thiamine HCl 100 mg/Dextrose/ Lactated Ringer's 1,011 ml @ 100 mls/hr Q24H IV ; Start 04/19/17 at 16:00; Stop 04/19/17 at 16:00; Status DC Amino Acids/ Glycerin/ Electrolytes 1,000 ml @ 80 mls/hr [id number] IV Last administered on 04/24/17 06:13; Start 04/19/17 at 15:30 Enoxaparin Sodium (Lovenox 40mg Syringe) 40 mg Q24H SQ Last administered on 16:31; Start 04/19/17 at 15:30 Famotidine (Pepcid Vial) 20 mg QHS IVP Last administered on 04/23/17 20:47; Start 04/19/17 at 21:00 Multivitamins 10 ml/Thiamine HCl 100 mg/Folic Acid 1 mg/Dextrose/ Lactated Ringer's 1,011.2 ml @ 100.02 mls/hr Q24H IV Last administered on 04/22/17 16 :55; Start 04/19/17 at 16:00; Stop 04/23/17 at 02:07; Status DC Sodium Phosphate 20 mmol/Dextrose 256.6667 ml @ 64.167 m... 1X ONCE IV Last administered on 04/20/17 09:03; Start 04/20/17 at 09:00; Stop 04/20/17 at 12 :59; Status DC Lorazepam (Ativan) 0.5 mg PRN 1X PRN IV ANXIETY / AGITATION Last administered on 04/21/17 02:00; Start 04/21/17 at 01:00 Diphenhydramine HCl (Benadryl) 25 mg PRN 1X PRN IVP INSOMNIA Last administered on 04/23/17 20:47; Start 04/21/17 at 01:00 Acetaminophen (Acetaminophen Supp) 650 mg PRN Q6HRS PRN NC MILD PAIN / TEMP; Start 04/21/17 at 01:00 Sodium Chloride 1,000 ml @ 75 mls/hr [id number] IV Last administered on 06:22; Start 04/21/17 at 09:15 Ciprofloxacin/ Dextrose 200 ml @ 200 mls/hr Q12HR IV Last administered on 08:12; Start 04/21/17 at 13:30 Lorazepam (Ativan) 1 mg PRN Q2HR PRN IV Agitation, Anxiety Last administered on 11/16/17at 19:20; Start 04/21/17 at 15:30 Hydromorphone HCl (Dilaudid) 0.5 mg PRN Q4HRS PRN IVP PAIN; Start 04/22/17 at 11:45 Active Scripts Active Reported [Ranitidine] PO [Flomax] PO [Losartan] PO DAILY [Vitamin] 1 PO DAILY [Aspirin] Mg PO DAILY Vitals/I & O Vital Sign - Last 24 Hours 04/23/17 04/23/17 04/23/17 04/23/17 15:35 19:20 19:50 23:15 Temp 98.5 98.5 98.3 98.5 98.5 98.3 Pulse 53 56 61 Resp 18 B/P (MAP) 168/86 (113) 161/83 (109) 164/79 (107) Pulse Ox 97 97 96 O2 Delivery Room Air Room Air Room Air Room Air 04/24/17 04/24/17 04/24/17 04/24/17 03:02 07:30 07:32 09:53 Temp 98.4 98.0 98.4 98.0 Pulse 62 65 Resp 18 B/P (MAP) 160/80 (106) 167/93 (117) 167/93 Pulse Ox 97 97 O2 Delivery Room Air Room Air Room Air 04/24/17 10:47 Temp 97.8 97.8 Pulse 64 Resp 24 B/P (MAP) 153/115 (128) Pulse Ox 98 O2 Delivery Room Air Intake and Output 04/23/17 04/23/17 04/24/17 15:00 23:00 07:00 Intake Total 0 ml 1100 ml Output Total 605 ml 800 ml 1125 ml Balance -605 ml -800 ml -25 ml CINDY NELSON MD Apr 24, 2017 14:24
[2017-04-24] MEDS: ENOXAPARIN 40 MG/0.4 ML SYRINGE. SQ SCH (14:50)
[2017-04-24 15:00] VITALS: BP 173/92
[2017-04-24] MEDS: ONDANSETRON PF 4 MG/2 ML VIAL. IV PRN (18:19)
[2017-04-24 19:00] VITALS: BP 125/70
[2017-04-24] MEDS: HYDROmorphone 2 MG/ML VIAL IVP PRN (19:15)
[2017-04-24] MEDS: LACTOBACILLUS RHAMNOSUS GG 1 CAPSULE. PO SCH (20:08)
[2017-04-24] MEDS: FAMOTIDINE 20 MG TABLET. PO SCH (20:08)
[2017-04-24 23:30] VITALS: BP 131/80
[2017-04-25] MEDS: HYDROmorphone 2 MG/ML VIAL IVP PRN ×2 (02:41→07:08)
[2017-04-25] MEDS: AMINO AC 3%/ELECTROLYTE/GLYCER 1,000 ML IV SCH ×2 (02:41→15:14)
[2017-04-25 03:36] VITALS: BP 143/82
[2017-04-25 05:25] LABS: BASO % 0 % (0-3); EOS % 2 % (0-3); HEMATOCRIT 37.8 % (39.0-53.0); LYMPH # 2.5 x10^3/uL (1.0-4.8); LYMPH % 19 % (24-48); MEAN CORPUSCULAR HEMOGLOBIN 33 pg (25-35); MEAN CORPUSCULAR HGB CONC 34 g/dL (31-37); MEAN CORPUSCULAR VOLUME 96 fL (79-100); MONO % 7 % (0-9); NEUT % 72 % (31-73); PLATELET COUNT 552 x10^3/uL (140-400); RED BLOOD COUNT 3.94 x10^6/uL (4.30-5.70); RED CELL DISTRIBUTION WIDTH 12.9 % (11.5-14.5); WHITE BLOOD COUNT 12.8 x10^3/uL (4.0-11.0)
[2017-04-25 05:29] LABS: ALBUMIN 2.4 g/dL (3.4-5.0); ALBUMIN/GLOBULIN RATIO 0.6 (1.0-1.7); CREATININE 0.7 mg/dL (0.7-1.3); GFR 109.1; TOTAL BILIRUBIN 0.4 mg/dL (0.2-1.0); TOTAL PROTEIN 6.3 g/dL (6.4-8.2)
[2017-04-25 07:45] VITALS: BP 158/91
[2017-04-25] MEDS: LACTOBACILLUS RHAMNOSUS GG 1 CAPSULE. PO SCH ×2 (09:26→21:48)
[2017-04-25] MEDS: TAMSULOSIN 0.4 MG CAP.ER.24H. PO SCH (09:26)
--- NOTE | 2017-04-25 09:27 | PDOC ---
ARMANDO MCGEE [employer] 04/25/17 0927: SURGICAL PROGRESS NOTE Subjective feels bloated, minimal liquid intake reports stools yesterday, + flatus Vital Signs Vital Signs Date Time Temp Pulse Resp B/P (MAP) Pulse Ox O2 Delivery O2 Flow Rate FiO2 04/25/17 07:45 97.7 54 18 158/91 (113) 97 Room Air 97.7 I&O Intake and Output 04/25/17 06:59 Intake Total 60 ml Output Total 789 ml Balance -729 ml Intake Oral 60 ml Output Urine Total 455 ml Urine/Stool Mix 4 ml Emesis 290 ml Drainage Total 40 ml General: Alert, Oriented X3, Cooperative, No acute distress Abdomen: Soft, Other (distented vs rotund abdomen, nontender, incision c/d/i, no erythema, sylwia scant serous drainage) Labs Laboratory Tests Test 04/25/17 03:55 White Blood Count 12.8 x10^3/uL (4.0-11.0) Red Blood Count 3.94 x10^6/uL (4.30-5.70) Hemoglobin 13.0 g/dL (13.0-17.5) Hematocrit 37.8 % (39.0-53.0) Mean Corpuscular Volume 96 fL (79-100) Mean Corpuscular Hemoglobin 33 pg (25-35) Mean Corpuscular Hemoglobin Concent 34 g/dL (31-37) Red Cell Distribution Width 12.9 % (11.5-14.5) Platelet Count 552 x10^3/uL (140-400) Neutrophils (%) (Auto) 72 % (31-73) Lymphocytes (%) (Auto) 19 % (24-48) Monocytes (%) (Auto) 7 % (0-9) Eosinophils (%) (Auto) 2 % (0-3) Basophils (%) (Auto) 0 % (0-3) Neutrophils # (Auto) 9.2 x10^3uL (1.8-7.7) Lymphocytes # (Auto) 2.5 x10^3/uL (1.0-4.8) Monocytes # (Auto) 0.9 x10^3/uL (0.0-1.1) Eosinophils # (Auto) 0.2 x10^3/uL (0.0-0.7) Basophils # (Auto) 0.0 x10^3/uL (0.0-0.2) Sodium Level 128 mmol/L (136-145) Potassium Level 4.0 mmol/L (3.5-5.1) Chloride Level 97 mmol/L (98-107) Carbon Dioxide Level 23 mmol/L (21-32) Anion Gap 8 (6-14) Blood Urea Nitrogen 14 mg/dL (8-26) Creatinine 0.7 mg/dL (0.7-1.3) Estimated GFR (Cockcroft-Gault) 109.1 BUN/Creatinine Ratio 20 (6-20) Glucose Level 107 mg/dL (70-99) Calcium Level 8.0 mg/dL (8.5-10.1) Total Bilirubin 0.4 mg/dL (0.2-1.0) Aspartate Amino Transf (AST/SGOT) 25 U/L (15-37) Alanine Aminotransferase (ALT/SGPT) 34 U/L (16-63) Alkaline Phosphatase 51 U/L (46-116) Total Protein 6.3 g/dL (6.4-8.2) Albumin 2.4 g/dL (3.4-5.0) Albumin/Globulin Ratio 0.6 (1.0-1.7) Laboratory Tests Test 04/25/17 03:55 White Blood Count 12.8 x10^3/uL (4.0-11.0) Red Blood Count 3.94 x10^6/uL (4.30-5.70) Hemoglobin 13.0 g/dL (13.0-17.5) Hematocrit 37.8 % (39.0-53.0) Mean Corpuscular Volume 96 fL (79-100) Mean Corpuscular Hemoglobin 33 pg (25-35) Mean Corpuscular Hemoglobin Concent 34 g/dL (31-37) Red Cell Distribution Width 12.9 % (11.5-14.5) Platelet Count 552 x10^3/uL (140-400) Neutrophils (%) (Auto) 72 % (31-73) Lymphocytes (%) (Auto) 19 % (24-48) Monocytes (%) (Auto) 7 % (0-9) Eosinophils (%) (Auto) 2 % (0-3) Basophils (%) (Auto) 0 % (0-3) Neutrophils # (Auto) 9.2 x10^3uL (1.8-7.7) Lymphocytes # (Auto) 2.5 x10^3/uL (1.0-4.8) Monocytes # (Auto) 0.9 x10^3/uL (0.0-1.1) Eosinophils # (Auto) 0.2 x10^3/uL (0.0-0.7) Basophils # (Auto) 0.0 x10^3/uL (0.0-0.2) Sodium Level 128 mmol/L (136-145) Potassium Level 4.0 mmol/L (3.5-5.1) Chloride Level 97 mmol/L (98-107) Carbon Dioxide Level 23 mmol/L (21-32) Anion Gap 8 (6-14) Blood Urea Nitrogen 14 mg/dL (8-26) Creatinine 0.7 mg/dL (0.7-1.3) Estimated GFR (Cockcroft-Gault) 109.1 BUN/Creatinine Ratio 20 (6-20) Glucose Level 107 mg/dL (70-99) Calcium Level 8.0 mg/dL (8.5-10.1) Total Bilirubin 0.4 mg/dL (0.2-1.0) Aspartate Amino Transf (AST/SGOT) 25 U/L (15-37) Alanine Aminotransferase (ALT/SGPT) 34 U/L (16-63) Alkaline Phosphatase 51 U/L (46-116) Total Protein 6.3 g/dL (6.4-8.2) Albumin 2.4 g/dL (3.4-5.0) Albumin/Globulin Ratio 0.6 (1.0-1.7) Problem List Problems Medical Problems: (1) ETOH abuse Status: Acute Assessment/Plan s/p open appy some bowel function, however feels bloated--will check plain films to eval Problems: ANA PABON MD 04/25/17 1200: SURGICAL PROGRESS NOTE Assessment/Plan Agree with above; some issues with postop bowel recovery; continue supportive care and allow time to resolve Problems: ARMANDO MCGEE APRN Apr 25, 2017 09:27 ANA PABON MD Apr 25, 2017 12:00
[2017-04-25] MEDS: LOSARTAN POTASSIUM 50 MG TABLET. PO SCH (09:28)
[2017-04-25] MEDS: CIPROFLOXACIN 400MG PREMIX 200 ML IV SCH ×2 (09:29→21:45)
--- NOTE | 2017-04-25 09:30 | PDOC ---
PROGRESS NOTES Chief Complaint Chief Complaint acute abdominal pain with acute appendicitis s/p open appendectomy sbo vs ileus, DIstention, abd Metabolic enceph ETOH abuse mild COPD, hyperlipidemia BPH hypophosphatemia mild malnutrition post op sbo vs ileus anemia post 1 u PRBC during sx History of Present Illness History of Present Illness ABd appears distended Mentions some non related things to me when I ask him how he is doing POor pO, on liquid diet and gets bloated, "sore" Last drink (beers) 1 week ago WBC 12,no fevers HAd 1 emesis last night PLAN: ABd films today COnt Procalamine WOF etoh withdrawals Supportive care Dw Julio Vitals Vitals Vital Signs Date Time Temp Pulse Resp B/P (MAP) Pulse Ox O2 Delivery O2 Flow Rate FiO2 04/25/17 07:45 97.7 54 18 158/91 (113) 97 Room Air 97.7 Physical Exam General: Alert, Oriented X3, Cooperative, No acute distress Heart: Regular rate, Normal S1, Normal S2 Lungs: Clear Abdomen: Soft, Other (distented vs rotund abdomen, nontender, incision c/d/i, no erythema, sylwia scant serous drainage) Extremities: No cyanosis, No edema Skin: No rashes, No breakdown Labs LABS Laboratory Tests Test 04/25/17 03:55 White Blood Count 12.8 x10^3/uL (4.0-11.0) Red Blood Count 3.94 x10^6/uL (4.30-5.70) Hemoglobin 13.0 g/dL (13.0-17.5) Hematocrit 37.8 % (39.0-53.0) Mean Corpuscular Volume 96 fL (79-100) Mean Corpuscular Hemoglobin 33 pg (25-35) Mean Corpuscular Hemoglobin Concent 34 g/dL (31-37) Red Cell Distribution Width 12.9 % (11.5-14.5) Platelet Count 552 x10^3/uL (140-400) Neutrophils (%) (Auto) 72 % (31-73) Lymphocytes (%) (Auto) 19 % (24-48) Monocytes (%) (Auto) 7 % (0-9) Eosinophils (%) (Auto) 2 % (0-3) Basophils (%) (Auto) 0 % (0-3) Neutrophils # (Auto) 9.2 x10^3uL (1.8-7.7) Lymphocytes # (Auto) 2.5 x10^3/uL (1.0-4.8) Monocytes # (Auto) 0.9 x10^3/uL (0.0-1.1) Eosinophils # (Auto) 0.2 x10^3/uL (0.0-0.7) Basophils # (Auto) 0.0 x10^3/uL (0.0-0.2) Sodium Level 128 mmol/L (136-145) Potassium Level 4.0 mmol/L (3.5-5.1) Chloride Level 97 mmol/L (98-107) Carbon Dioxide Level 23 mmol/L (21-32) Anion Gap 8 (6-14) Blood Urea Nitrogen 14 mg/dL (8-26) Creatinine 0.7 mg/dL (0.7-1.3) Estimated GFR (Cockcroft-Gault) 109.1 BUN/Creatinine Ratio 20 (6-20) Glucose Level 107 mg/dL (70-99) Calcium Level 8.0 mg/dL (8.5-10.1) Total Bilirubin 0.4 mg/dL (0.2-1.0) Aspartate Amino Transf (AST/SGOT) 25 U/L (15-37) Alanine Aminotransferase (ALT/SGPT) 34 U/L (16-63) Alkaline Phosphatase 51 U/L (46-116) Total Protein 6.3 g/dL (6.4-8.2) Albumin 2.4 g/dL (3.4-5.0) Albumin/Globulin Ratio 0.6 (1.0-1.7) Review of Systems Review of Systems emesis, sore abd,. no CP< SOA Assessment and Plan Assessmemt and Plan Problems Medical Problems: (1) ETOH abuse Status: Acute Problems: Comment Review of Relevant I have reviewed the following items nika (where applicable) has been applied. Labs Laboratory Tests Test 04/25/17 03:55 White Blood Count 12.8 x10^3/uL (4.0-11.0) Red Blood Count 3.94 x10^6/uL (4.30-5.70) Hemoglobin 13.0 g/dL (13.0-17.5) Hematocrit 37.8 % (39.0-53.0) Mean Corpuscular Volume 96 fL (79-100) Mean Corpuscular Hemoglobin 33 pg (25-35) Mean Corpuscular Hemoglobin Concent 34 g/dL (31-37) Red Cell Distribution Width 12.9 % (11.5-14.5) Platelet Count 552 x10^3/uL (140-400) Neutrophils (%) (Auto) 72 % (31-73) Lymphocytes (%) (Auto) 19 % (24-48) Monocytes (%) (Auto) 7 % (0-9) Eosinophils (%) (Auto) 2 % (0-3) Basophils (%) (Auto) 0 % (0-3) Neutrophils # (Auto) 9.2 x10^3uL (1.8-7.7) Lymphocytes # (Auto) 2.5 x10^3/uL (1.0-4.8) Monocytes # (Auto) 0.9 x10^3/uL (0.0-1.1) Eosinophils # (Auto) 0.2 x10^3/uL (0.0-0.7) Basophils # (Auto) 0.0 x10^3/uL (0.0-0.2) Sodium Level 128 mmol/L (136-145) Potassium Level 4.0 mmol/L (3.5-5.1) Chloride Level 97 mmol/L (98-107) Carbon Dioxide Level 23 mmol/L (21-32) Anion Gap 8 (6-14) Blood Urea Nitrogen 14 mg/dL (8-26) Creatinine 0.7 mg/dL (0.7-1.3) Estimated GFR (Cockcroft-Gault) 109.1 BUN/Creatinine Ratio 20 (6-20) Glucose Level 107 mg/dL (70-99) Calcium Level 8.0 mg/dL (8.5-10.1) Total Bilirubin 0.4 mg/dL (0.2-1.0) Aspartate Amino Transf (AST/SGOT) 25 U/L (15-37) Alanine Aminotransferase (ALT/SGPT) 34 U/L (16-63) Alkaline Phosphatase 51 U/L (46-116) Total Protein 6.3 g/dL (6.4-8.2) Albumin 2.4 g/dL (3.4-5.0) Albumin/Globulin Ratio 0.6 (1.0-1.7) Laboratory Tests Test 04/25/17 03:55 White Blood Count 12.8 x10^3/uL (4.0-11.0) Red Blood Count 3.94 x10^6/uL (4.30-5.70) Hemoglobin 13.0 g/dL (13.0-17.5) Hematocrit 37.8 % (39.0-53.0) Mean Corpuscular Volume 96 fL (79-100) Mean Corpuscular Hemoglobin 33 pg (25-35) Mean Corpuscular Hemoglobin Concent 34 g/dL (31-37) Red Cell Distribution Width 12.9 % (11.5-14.5) Platelet Count 552 x10^3/uL (140-400) Neutrophils (%) (Auto) 72 % (31-73) Lymphocytes (%) (Auto) 19 % (24-48) Monocytes (%) (Auto) 7 % (0-9) Eosinophils (%) (Auto) 2 % (0-3) Basophils (%) (Auto) 0 % (0-3) Neutrophils # (Auto) 9.2 x10^3uL (1.8-7.7) Lymphocytes # (Auto) 2.5 x10^3/uL (1.0-4.8) Monocytes # (Auto) 0.9 x10^3/uL (0.0-1.1) Eosinophils # (Auto) 0.2 x10^3/uL (0.0-0.7) Basophils # (Auto) 0.0 x10^3/uL (0.0-0.2) Sodium Level 128 mmol/L (136-145) Potassium Level 4.0 mmol/L (3.5-5.1) Chloride Level 97 mmol/L (98-107) Carbon Dioxide Level 23 mmol/L (21-32) Anion Gap 8 (6-14) Blood Urea Nitrogen 14 mg/dL (8-26) Creatinine 0.7 mg/dL (0.7-1.3) Estimated GFR (Cockcroft-Gault) 109.1 BUN/Creatinine Ratio 20 (6-20) Glucose Level 107 mg/dL (70-99) Calcium Level 8.0 mg/dL (8.5-10.1) Total Bilirubin 0.4 mg/dL (0.2-1.0) Aspartate Amino Transf (AST/SGOT) 25 U/L (15-37) Alanine Aminotransferase (ALT/SGPT) 34 U/L (16-63) Alkaline Phosphatase 51 U/L (46-116) Total Protein 6.3 g/dL (6.4-8.2) Albumin 2.4 g/dL (3.4-5.0) Albumin/Globulin Ratio 0.6 (1.0-1.7) Medications Current Medications Sodium Chloride 1,000 ml @ 1,000 mls/hr 1X ONCE IV Last administered on 04/18 17:14; Start 04/18/17 at 17:00; Stop 04/18/17 at 17:59; Status DC Metronidazole 100 ml @ 100 mls/hr Q8HRS IV Last administered on 04/25/17 05: 09; Start 04/18/17 at 23:00 Piperacillin Sod/ Tazobactam Sod 3.375 gm/Dextrose 50 ml @ 100 mls/hr 1X ONCE IV ; Start 04/18/17 at 17:15; Stop 04/18/17 at 17:44; Status UNV Piperacillin Sod/ Tazobactam Sod (Zosyn) 3.375 gm 1X ONCE IVP Last administered on 04/18/17 17:41; Start 04/18/17 at 17:15; Stop 04/18/17 at 17 :16; Status DC Metronidazole 100 ml @ 100 mls/hr 1X ONCE IV ; Start 04/18/17 at 17:15; Stop 04/18/17 at 18:14; Status DC Sevoflurane (Ultane) 60 ml STK-MED ONCE IH ; Start 04/18/17 at 17:36; Stop at 17:37; Status DC Fentanyl Citrate (Fentanyl 2ml Vial) 100 mcg STK-MED ONCE .ROUTE ; Start at 17:36; Stop 04/18/17 at 17:37; Status DC Neostigmine Methylsulfate (Bloxiverz) 10 mg STK-MED ONCE .ROUTE ; Start at 17:36; Stop 04/18/17 at 17:37; Status DC Succinylcholine Chloride (Anectine) 200 mg STK-MED ONCE .ROUTE ; Start at 17:36; Stop 04/18/17 at 17:37; Status DC Glycopyrrolate (Robinul) 1 mg STK-MED ONCE .ROUTE ; Start 04/18/17 at 17:37; Stop 04/18/17 at 17:38; Status DC Rocuronium [place] (Zemuron) 50 mg STK-MED ONCE .ROUTE ; Start 04/18/17 at 17: 37; Stop 04/18/17 at 17:38; Status DC Propofol 20 ml @ As Directed STK-MED ONCE IV ; Start 04/18/17 at 17:37; Stop 04/18/17 at 17:38; Status DC Lidocaine HCl (Lidocaine Pf 2% Vial) 5 ml STK-MED ONCE .ROUTE ; Start 04/18/17 at 17:37; Stop 04/18/17 at 17:38; Status DC Dexamethasone Sodium Phosphate (Decadron) 20 mg STK-MED ONCE .ROUTE ; Start at 17:37; Stop 04/18/17 at 17:38; Status DC Ondansetron HCl (Zofran) 4 mg STK-MED ONCE .ROUTE ; Start 04/18/17 at 17:37; Stop 04/18/17 at 17:38; Status DC Tamsulosin HCl (Flomax) 0.4 mg DAILY PO Last administered on 04/24/17 09:52; Start 04/19/17 at 09:00 Losartan Potassium (Cozaar) 50 mg DAILY PO Last administered on 04/24/17 09: 53; Start 04/19/17 at 09:00 Multivitamins 10 ml/Thiamine HCl 100 mg/Ringer's Solution 1,011 ml @ 250 mls/ hr 1X ONCE IV Last administered on 04/19/17 01:24; Start 04/18/17 at 19:00 ; Stop 04/18/17 at 23:02; Status DC Ondansetron HCl (Zofran) 4 mg PRN Q6HRS PRN IV NAUSEA/VOMITING; Start at 19:00; Stop 04/18/17 at 22:00; Status DC Fentanyl Citrate (Fentanyl 2ml Vial) 25 mcg PRN Q5MIN PRN IV MILD PAIN; Start 04/18/17 at 19:00; Stop 04/18/17 at 22:00; Status DC Fentanyl Citrate (Fentanyl 2ml Vial) 50 mcg PRN Q5MIN PRN IV MODERATE PAIN; Start 04/18/17 at 19:00; Stop 04/18/17 at 22:00; Status DC Morphine Sulfate 1 mg PRN Q10MIN PRN IV SEVERE PAIN; Start 04/18/17 at 19:00; Stop 04/18/17 at 22:00; Status DC Ringer's Solution 1,000 ml @ 30 mls/hr Q24H IV ; Start 04/18/17 at 18:50; Stop 04/19/17 at 06:49; Status DC Lidocaine HCl (Xylocaine-Mpf 1% Vial) 2 ml 1X PRN PRN ID IV START; Start 04/18 at 19:00; Stop 04/18/17 at 22:00; Status DC Hydromorphone HCl (Dilaudid) 0.5 mg PRN Q10MIN PRN IV SEV PAIN, Second choice; Start 04/18/17 at 19:00; Stop 04/18/17 at 22:00; Status DC Prochlorperazine Edisylate (Compazine) 5 mg PACU PRN PRN IV NAUSEA, MRX1; Start 04/18/17 at 19:00; Stop 04/18/17 at 22:00; Status DC Bupivacaine HCl/ Epinephrine Bitart (Sensorcain-Mpf Epi 0.5%-1:191025) 30 ml STK -MED ONCE .ROUTE ; Start 04/18/17 at 19:16; Stop 04/18/17 at 19:17; Status DC Fentanyl Citrate (Fentanyl 2ml Vial) 100 mcg STK-MED ONCE .ROUTE ; Start at 19:49; Stop 04/18/17 at 19:50; Status DC Phenylephrine HCl 1 mg STK-MED ONCE IV ; Start 04/18/17 at 20:04; Stop at 20:05; Status DC Cellulose 1 each STK-MED ONCE .ROUTE Last administered on 04/18/17t 21:07; Start 04/18/17 at 20:35; Stop 04/18/17 at 20:36; Status DC Cellulose 1 each STK-MED ONCE .ROUTE ; Start 04/18/17 at 21:26; Stop 04/18/17 at 21:27; Status DC Hydromorphone HCl 30 ml @ 0 mls/hr CONT PRN PRN IV PROTOCOL Last administered on 04/18/17 23:53; Start 04/18/17 at 22:30; Stop 04/21/17 at 09:03; Status DC Morphine Sulfate 2 mg STK-MED ONCE .ROUTE ; Start 04/18/17 at 22:47; Stop at 22:48; Status DC Ondansetron HCl (Zofran) 4 mg PRN Q6HRS PRN IV NAUSEA/VOMITING; Start at 23:00; Stop 04/19/17 at 06:00; Status DC Fentanyl Citrate (Fentanyl 2ml Vial) 25 mcg PRN Q5MIN PRN IV MILD PAIN; Start 04/18/17 at 23:00; Stop 04/19/17 at 01:45; Status DC Fentanyl Citrate (Fentanyl 2ml Vial) 50 mcg PRN Q5MIN PRN IV MODERATE PAIN; Start 04/18/17 at 23:00; Stop 04/19/17 at 01:45; Status DC Morphine Sulfate 1 mg PRN Q10MIN PRN IV SEVERE PAIN Last administered on 22:53; Start 04/18/17 at 23:00; Stop 04/19/17 at 01:45; Status DC Hydromorphone HCl (Dilaudid) 0.5 mg PRN Q10MIN PRN IV SEV PAIN, Second choice Last administered on 04/18/17 23:30; Start 04/18/17 at 23:00; Stop 04/19/17 at 01:45; Status DC Prochlorperazine Edisylate (Compazine) 5 mg PACU PRN PRN IV NAUSEA, MRX1 Last administered on 04/18/17 22:59; Start 04/18/17 at 23:00; Stop 04/19/17 at 01 :45; Status DC Albuterol/ Ipratropium (Duoneb) 3 ml 1X PACU PRN NEB SEE COMMENTS Last administered on 04/18/17 23:13; Start 04/18/17 at 23:15; Stop 04/19/17 at 23 :14; Status DC Hydralazine HCl (Apresoline) 10 mg 1X PACU PRN PO HYPERTENSION, SEE COMMENTS; Start 04/18/17 at 23:30; Stop 04/19/17 at 01:45; Status DC Labetalol HCl (Normodyne) 20 mg PRN Q2HR PRN IVP HYPERTENSION, SEE COMMENTS; Start 04/19/17 at 01:45; Stop 04/19/17 at 15:19; Status DC Acetaminophen (Tylenol) 650 mg PRN Q6HRS PRN PO FEVER; Start 04/19/17 at 15:30 Ondansetron HCl (Zofran) 4 mg PRN Q6HRS PRN IV NAUSEA/VOMITING Last administered on 04/24/17 18:19; Start 04/19/17 at 15:30 Morphine Sulfate 2 mg PRN Q2HR PRN IV PAIN; Start 04/19/17 at 15:30 Tramadol HCl (Ultram) 50 mg PRN Q6HRS PRN PO PAIN; Start 04/19/17 at 15:30 Hydralazine HCl (Apresoline Inj) 10 mg PRN Q4HRS PRN IVP ELEVATED BP, SEE COMMENTS Last administered on 04/19/17 16:15; Start 04/19/17 at 15:30 Docusate Sodium (Colace) 100 mg PRN DAILY PRN PO CONSTIPATION; Start 04/19/17 at 15:30 Lorazepam (Ativan) 2 mg PRN Q4HRS PRN IV ANXIETY / AGITATION Last administered on 04/24/17 19:15; Start 04/19/17 at 15:30 Multivitamins 10 ml/Thiamine HCl 100 mg/Dextrose/ Lactated Ringer's 1,011 ml @ 100 mls/hr Q24H IV ; Start 04/19/17 at 16:00; Stop 04/19/17 at 16:00; Status DC Amino Acids/ Glycerin/ Electrolytes 1,000 ml @ 80 mls/hr [id number] IV Last administered on 04/25/17 02:41; Start 04/19/17 at 15:30 Enoxaparin Sodium (Lovenox 40mg Syringe) 40 mg Q24H SQ Last administered on 14:50; Start 04/19/17 at 15:30 Famotidine (Pepcid Vial) 20 mg QHS IVP Last administered on 04/23/17 20:47; Start 04/19/17 at 21:00; Stop 04/24/17 at 15:06; Status DC Multivitamins 10 ml/Thiamine HCl 100 mg/Folic Acid 1 mg/Dextrose/ Lactated Ringer's 1,011.2 ml @ 100.02 mls/hr Q24H IV Last administered on 04/22/17 16 :55; Start 04/19/17 at 16:00; Stop 04/23/17 at 02:07; Status DC Sodium Phosphate 20 mmol/Dextrose 256.6667 ml @ 64.167 m... 1X ONCE IV Last administered on 04/20/17 09:03; Start 04/20/17 at 09:00; Stop 04/20/17 at 12 :59; Status DC Lorazepam (Ativan) 0.5 mg PRN 1X PRN IV ANXIETY / AGITATION Last administered on 04/21/17 02:00; Start 04/21/17 at 01:00 Diphenhydramine HCl (Benadryl) 25 mg PRN 1X PRN IVP INSOMNIA Last administered on 04/23/17 20:47; Start 04/21/17 at 01:00 Acetaminophen (Acetaminophen Supp) [address] MILD PAIN / TEMP; Start 04/21/17 at 01:00 Sodium Chloride 1,000 ml @ 75 mls/hr [id number] IV Last administered on 06:22; Start 04/21/17 at 09:15; Stop 04/24/17 at 16:57; Status DC Ciprofloxacin/ Dextrose 200 ml @ 200 mls/hr Q12HR IV Last administered on 19:14; Start 04/21/17 at 13:30 Lorazepam (Ativan) 1 mg PRN Q2HR PRN IV Agitation, Anxiety Last administered on 04/25/17 02:41; Start 04/21/17 at 15:30 Hydromorphone HCl (Dilaudid) 0.5 mg PRN Q4HRS PRN IVP PAIN Last administered on 04/25/17 07:08; Start 04/22/17 at 11:45 Famotidine (Pepcid) 20 mg QHS PO ; Start 04/24/17 at 21:00 Lactobacillus Rhamnosus (Culturelle) 1 cap BID PO ; Start 04/24/17 at 21:00 Active Scripts Active Reported [Ranitidine] PO [Flomax] PO [Losartan] PO DAILY [Vitamin] 1 PO DAILY [Aspirin] Mg PO DAILY Vitals/I & O Vital Sign - Last 24 Hours 04/24/17 04/24/17 04/24/17 04/24/17 09:53 10:47 15:00 19:00 Temp 97.8 97.5 98.6 97.8 97.5 98.6 Pulse 64 55 63 Resp 24 22 14 B/P (MAP) 167/93 153/115 (128) 173/92 (119) 125/70 (88) Pulse Ox 98 97 91 O2 Delivery Room Air Room Air Room Air 04/24/17 04/24/17 04/24/17 04/25/17 19:15 19:36 23:30 02:41 Temp 97.6 97.6 Pulse 65 Resp 20 16 20 B/P (MAP) 131/80 (97) Pulse Ox 97 97 97 O2 Delivery Room Air Room Air Room Air Room Air 04/25/17 04/25/17 04/25/17 04/25/17 03:11 03:36 07:05 07:08 Temp 97.7 97.7 Pulse 59 Resp 20 18 B/P (MAP) 143/82 (102) Pulse Ox 97 97 O2 Delivery Room Air Room Air Room Air Room Air 04/25/17 07:45 Temp 97.7 97.7 Pulse 54 Resp 18 B/P (MAP) 158/91 (113) Pulse Ox 97 O2 Delivery Room Air Intake and Output 04/24/17 04/24/17 04/25/17 14:59 22:59 06:59 Intake Total 60 ml Output Total 14 ml 745 ml 30 ml Balance -14 ml -745 ml 30 ml KALYN LOPEZ MD Apr 25, 2017 09:30
--- NOTE | 2017-04-25 09:51 | RAD ---
Indication: Abdominal distention. Time of exam 0940 hours. Correlation is made with prior study from 04/22/2017. The lungs appear clear. Postop changes are noted. There continues to be moderate gaseous distention of small bowel loops, concerning for small bowel obstruction. There is gas within the colon. There does appear to be some residual free air. Surgical drain overlies the right abdomen. Impression: Continued gaseous distention of small bowel, similar to the examination from 3 days earlier. Continued close follow-up is recommended.
[2017-04-25] MEDS: ONDANSETRON PF 4 MG/2 ML VIAL. IV PRN (10:48)
[2017-04-25] MEDS: MORPHINE SULFATE 4 MG/ML DISP.SYRIN. IV PRN ×2 (10:48→15:14)
[2017-04-25 11:00] VITALS: BP 163/94
[2017-04-25] MEDS ORDERED: BISACODYL 10 MG SUPP.RECT. PR ONE (11:00)
[2017-04-25 15:00] VITALS: BP 117/73
[2017-04-25] MEDS: ENOXAPARIN 40 MG/0.4 ML SYRINGE. SQ SCH (15:11)
[2017-04-25 19:00] VITALS: BP 153/84
[2017-04-25] MEDS: FAMOTIDINE 20 MG TABLET. PO SCH (21:48)
[2017-04-25 23:00] VITALS: BP 125/71
[2017-04-26] MEDS: MORPHINE SULFATE 4 MG/ML DISP.SYRIN. IV PRN (00:06)
[2017-04-26 03:00] VITALS: BP 125/69
[2017-04-26 05:10] LABS: BASO # 0.1 x10^3/uL (0.0-0.2); BASO % 1 % (0-3); EOS % 2 % (0-3); HEMATOCRIT 36.6 % (39.0-53.0); HEMOGLOBIN 12.8 g/dL (13.0-17.5); LYMPH # 2.2 x10^3/uL (1.0-4.8); LYMPH % 19 % (24-48); MEAN CORPUSCULAR HEMOGLOBIN 34 pg (25-35); MEAN CORPUSCULAR HGB CONC 35 g/dL (31-37); MEAN CORPUSCULAR VOLUME 97 fL (79-100); MONO % 6 % (0-9); NEUT % 73 % (31-73); PLATELET COUNT 542 x10^3/uL (140-400); RED BLOOD COUNT 3.77 x10^6/uL (4.30-5.70); RED CELL DISTRIBUTION WIDTH 12.9 % (11.5-14.5); WHITE BLOOD COUNT 11.8 x10^3/uL (4.0-11.0)
[2017-04-26] MEDS: AMINO AC 3%/ELECTROLYTE/GLYCER 1,000 ML IV SCH (05:35)
[2017-04-26 05:39] LABS: CALCIUM 8.1 mg/dL (8.5-10.1); CREATININE 0.7 mg/dL (0.7-1.3); GFR 109.1; POTASSIUM 4.1 mmol/L (3.5-5.1)
[2017-04-26 07:00] VITALS: BP 136/78
[2017-04-26] MEDS: CIPROFLOXACIN 400MG PREMIX 200 ML IV SCH ×2 (09:16→21:15)
[2017-04-26] MEDS: LOSARTAN POTASSIUM 50 MG TABLET. PO SCH (09:16)
[2017-04-26] MEDS: TAMSULOSIN 0.4 MG CAP.ER.24H. PO SCH (09:17)
[2017-04-26] MEDS: LACTOBACILLUS RHAMNOSUS GG 1 CAPSULE. PO SCH ×2 (09:17→21:15)
--- NOTE | 2017-04-26 10:56 | PDOC ---
ARMANDO MCGEE [employer] 04/26/17 1056: SURGICAL PROGRESS NOTE Subjective thinks his distention is a little better no emesis + flatus Vital Signs Vital Signs Date Time Temp Pulse Resp B/P (MAP) Pulse Ox O2 Delivery O2 Flow Rate FiO2 04/26/17 09:16 57 125/69 04/26/17 07:00 97.5 18 96 Room Air 97.5 I&O Intake and Output 04/26/17 07:00 Intake Total 1260 ml Output Total 470 ml Balance 790 ml IV Total 1260 ml Drainage Total 470 ml # Voids 11 General: Alert, Oriented X3, Cooperative, No acute distress Abdomen: Soft, Other (distended, sylwia serous, incision c/d/i, no erythema ) Labs Laboratory Tests Test 04/25/17 03:55 04/26/17 04:20 04/26/17 04:25 White Blood Count 12.8 x10^3/uL (4.0-11.0) 11.8 x10^3/uL (4.0-11.0) Red Blood Count 3.94 x10^6/uL (4.30-5.70) 3.77 x10^6/uL (4.30-5.70) Hemoglobin 13.0 g/dL (13.0-17.5) 12.8 g/dL (13.0-17.5) Hematocrit 37.8 % (39.0-53.0) 36.6 % (39.0-53.0) Mean Corpuscular Volume 96 fL (79-100) 97 fL (79-100) Mean Corpuscular Hemoglobin 33 pg (25-35) 34 pg (25-35) Mean Corpuscular Hemoglobin Concent 34 g/dL (31-37) 35 g/dL (31-37) Red Cell Distribution Width 12.9 % (11.5-14.5) 12.9 % (11.5-14.5) Platelet Count 552 x10^3/uL (140-400) 542 x10^3/uL (140-400) Neutrophils (%) (Auto) 72 % (31-73) 73 % (31-73) Lymphocytes (%) (Auto) 19 % (24-48) 19 % (24-48) Monocytes (%) (Auto) 7 % (0-9) 6 % (0-9) Eosinophils (%) (Auto) 2 % (0-3) 2 % (0-3) Basophils (%) (Auto) 0 % (0-3) 1 % (0-3) Neutrophils # (Auto) 9.2 x10^3uL (1.8-7.7) 8.6 x10^3uL (1.8-7.7) Lymphocytes # (Auto) 2.5 x10^3/uL (1.0-4.8) 2.2 x10^3/uL (1.0-4.8) Monocytes # (Auto) 0.9 x10^3/uL (0.0-1.1) 0.7 x10^3/uL (0.0-1.1) Eosinophils # (Auto) 0.2 x10^3/uL (0.0-0.7) 0.3 x10^3/uL (0.0-0.7) Basophils # (Auto) 0.0 x10^3/uL (0.0-0.2) 0.1 x10^3/uL (0.0-0.2) Sodium Level 128 mmol/L (136-145) 131 mmol/L (136-145) Potassium Level 4.0 mmol/L (3.5-5.1) 4.1 mmol/L (3.5-5.1) Chloride Level 97 mmol/L (98-107) 99 mmol/L (98-107) Carbon Dioxide Level 23 mmol/L (21-32) 24 mmol/L (21-32) Anion Gap 8 (6-14) 8 (6-14) Blood Urea Nitrogen 14 mg/dL (8-26) 13 mg/dL (8-26) Creatinine 0.7 mg/dL (0.7-1.3) 0.7 mg/dL (0.7-1.3) Estimated GFR (Cockcroft-Gault) 109.1 109.1 BUN/Creatinine Ratio 20 (6-20) Glucose Level 107 mg/dL (70-99) 104 mg/dL (70-99) Calcium Level 8.0 mg/dL (8.5-10.1) 8.1 mg/dL (8.5-10.1) Total Bilirubin 0.4 mg/dL (0.2-1.0) Aspartate Amino Transf (AST/SGOT) 25 U/L (15-37) Alanine Aminotransferase (ALT/SGPT) 34 U/L (16-63) Alkaline Phosphatase 51 U/L (46-116) Total Protein 6.3 g/dL (6.4-8.2) Albumin 2.4 g/dL (3.4-5.0) Albumin/Globulin Ratio 0.6 (1.0-1.7) Laboratory Tests Test 04/26/17 04:20 04/26/17 04:25 White Blood Count 11.8 x10^3/uL (4.0-11.0) Red Blood Count 3.77 x10^6/uL (4.30-5.70) Hemoglobin 12.8 g/dL (13.0-17.5) Hematocrit 36.6 % (39.0-53.0) Mean Corpuscular Volume 97 fL (79-100) Mean Corpuscular Hemoglobin 34 pg (25-35) Mean Corpuscular Hemoglobin Concent 35 g/dL (31-37) Red Cell Distribution Width 12.9 % (11.5-14.5) Platelet Count 542 x10^3/uL (140-400) Neutrophils (%) (Auto) 73 % (31-73) Lymphocytes (%) (Auto) 19 % (24-48) Monocytes (%) (Auto) 6 % (0-9) Eosinophils (%) (Auto) 2 % (0-3) Basophils (%) (Auto) 1 % (0-3) Neutrophils # (Auto) 8.6 x10^3uL (1.8-7.7) Lymphocytes # (Auto) 2.2 x10^3/uL (1.0-4.8) Monocytes # (Auto) 0.7 x10^3/uL (0.0-1.1) Eosinophils # (Auto) 0.3 x10^3/uL (0.0-0.7) Basophils # (Auto) 0.1 x10^3/uL (0.0-0.2) Sodium Level 131 mmol/L (136-145) Potassium Level 4.1 mmol/L (3.5-5.1) Chloride Level 99 mmol/L (98-107) Carbon Dioxide Level 24 mmol/L (21-32) Anion Gap 8 (6-14) Blood Urea Nitrogen 13 mg/dL (8-26) Creatinine 0.7 mg/dL (0.7-1.3) Estimated GFR (Cockcroft-Gault) 109.1 Glucose Level 104 mg/dL (70-99) Calcium Level 8.1 mg/dL (8.5-10.1) Problem List Problems Medical Problems: (1) ETOH abuse Status: Acute Assessment/Plan s/p appy ileus bowel rest, will repeat xray in AM nutrition per IPC--may need to consider TPN Problems: ANA PABON MD 04/26/17 1223: SURGICAL PROGRESS NOTE Assessment/Plan Agree with above, progress slowly Problems: ARMANDO MCGEE [employer] Apr 26, 2017 10:56 ANA PABON MD Apr 26, 2017 12:23
[2017-04-26 11:45] VITALS: BP 119/67
--- NOTE | 2017-04-26 13:16 | PDOC ---
PROGRESS NOTES Chief Complaint Chief Complaint acute abdominal pain with acute appendicitis s/p open appendectomy Persistent ileus in an alcoholic Metabolic enceph resolved ETOH abuse mild COPD, hyperlipidemia BPH hypophosphatemia mild malnutrition post op sbo vs ileus anemia post 1 u PRBC during sx History of Present Illness History of Present Illness Seems better xrays: shows persistent ileus Dw Unique, TPN HAs had 11 bags of procalamine already PLAN: PICC line, TPNLAbs tmr NPO Dw him, he agrees Vitals Vitals Vital Signs Date Time Temp Pulse Resp B/P (MAP) Pulse Ox O2 Delivery O2 Flow Rate FiO2 04/26/17 11:45 97.9 61 18 119/67 (84) 97 Room Air 97.9 Physical Exam General: Alert, Oriented X3, Cooperative, No acute distress Heart: Regular rate, Normal S1, Normal S2 Lungs: Clear Abdomen: Soft, Other (distended, sylwia serous, incision c/d/i, no erythema ) Extremities: No cyanosis, No edema Skin: No rashes, No breakdown Labs LABS Laboratory Tests Test 04/26/17 04:20 04/26/17 04:25 White Blood Count 11.8 x10^3/uL (4.0-11.0) Red Blood Count 3.77 x10^6/uL (4.30-5.70) Hemoglobin 12.8 g/dL (13.0-17.5) Hematocrit 36.6 % (39.0-53.0) Mean Corpuscular Volume 97 fL (79-100) Mean Corpuscular Hemoglobin 34 pg (25-35) Mean Corpuscular Hemoglobin Concent 35 g/dL (31-37) Red Cell Distribution Width 12.9 % (11.5-14.5) Platelet Count 542 x10^3/uL (140-400) Neutrophils (%) (Auto) 73 % (31-73) Lymphocytes (%) (Auto) 19 % (24-48) Monocytes (%) (Auto) 6 % (0-9) Eosinophils (%) (Auto) 2 % (0-3) Basophils (%) (Auto) 1 % (0-3) Neutrophils # (Auto) 8.6 x10^3uL (1.8-7.7) Lymphocytes # (Auto) 2.2 x10^3/uL (1.0-4.8) Monocytes # (Auto) 0.7 x10^3/uL (0.0-1.1) Eosinophils # (Auto) 0.3 x10^3/uL (0.0-0.7) Basophils # (Auto) 0.1 x10^3/uL (0.0-0.2) Sodium Level 131 mmol/L (136-145) Potassium Level 4.1 mmol/L (3.5-5.1) Chloride Level 99 mmol/L (98-107) Carbon Dioxide Level 24 mmol/L (21-32) Anion Gap 8 (6-14) Blood Urea Nitrogen 13 mg/dL (8-26) Creatinine 0.7 mg/dL (0.7-1.3) Estimated GFR (Cockcroft-Gault) 109.1 Glucose Level 104 mg/dL (70-99) Calcium Level 8.1 mg/dL (8.5-10.1) Review of Systems Review of Systems bloated, belching, no emesis, no cp, no soa Assessment and Plan Assessmemt and Plan Problems Medical Problems: (1) ETOH abuse Status: Acute Problems: Comment Review of Relevant I have reviewed the following items nika (where applicable) has been applied. Labs Laboratory Tests Test 04/25/17 03:55 04/26/17 04:20 04/26/17 04:25 White Blood Count 12.8 x10^3/uL (4.0-11.0) 11.8 x10^3/uL (4.0-11.0) Red Blood Count 3.94 x10^6/uL (4.30-5.70) 3.77 x10^6/uL (4.30-5.70) Hemoglobin 13.0 g/dL (13.0-17.5) 12.8 g/dL (13.0-17.5) Hematocrit 37.8 % (39.0-53.0) 36.6 % (39.0-53.0) Mean Corpuscular Volume 96 fL (79-100) 97 fL (79-100) Mean Corpuscular Hemoglobin 33 pg (25-35) 34 pg (25-35) Mean Corpuscular Hemoglobin Concent 34 g/dL (31-37) 35 g/dL (31-37) Red Cell Distribution Width 12.9 % (11.5-14.5) 12.9 % (11.5-14.5) Platelet Count 552 x10^3/uL (140-400) 542 x10^3/uL (140-400) Neutrophils (%) (Auto) 72 % (31-73) 73 % (31-73) Lymphocytes (%) (Auto) 19 % (24-48) 19 % (24-48) Monocytes (%) (Auto) 7 % (0-9) 6 % (0-9) Eosinophils (%) (Auto) 2 % (0-3) 2 % (0-3) Basophils (%) (Auto) 0 % (0-3) 1 % (0-3) Neutrophils # (Auto) 9.2 x10^3uL (1.8-7.7) 8.6 x10^3uL (1.8-7.7) Lymphocytes # (Auto) 2.5 x10^3/uL (1.0-4.8) 2.2 x10^3/uL (1.0-4.8) Monocytes # (Auto) 0.9 x10^3/uL (0.0-1.1) 0.7 x10^3/uL (0.0-1.1) Eosinophils # (Auto) 0.2 x10^3/uL (0.0-0.7) 0.3 x10^3/uL (0.0-0.7) Basophils # (Auto) 0.0 x10^3/uL (0.0-0.2) 0.1 x10^3/uL (0.0-0.2) Sodium Level 128 mmol/L (136-145) 131 mmol/L (136-145) Potassium Level 4.0 mmol/L (3.5-5.1) 4.1 mmol/L (3.5-5.1) Chloride Level 97 mmol/L (98-107) 99 mmol/L (98-107) Carbon Dioxide Level 23 mmol/L (21-32) 24 mmol/L (21-32) Anion Gap 8 (6-14) 8 (6-14) Blood Urea Nitrogen 14 mg/dL (8-26) 13 mg/dL (8-26) Creatinine 0.7 mg/dL (0.7-1.3) 0.7 mg/dL (0.7-1.3) Estimated GFR (Cockcroft-Gault) 109.1 109.1 BUN/Creatinine Ratio 20 (6-20) Glucose Level 107 mg/dL (70-99) 104 mg/dL (70-99) Calcium Level 8.0 mg/dL (8.5-10.1) 8.1 mg/dL (8.5-10.1) Total Bilirubin 0.4 mg/dL (0.2-1.0) Aspartate Amino Transf (AST/SGOT) 25 U/L (15-37) Alanine Aminotransferase (ALT/SGPT) 34 U/L (16-63) Alkaline Phosphatase 51 U/L (46-116) Total Protein 6.3 g/dL (6.4-8.2) Albumin 2.4 g/dL (3.4-5.0) Albumin/Globulin Ratio 0.6 (1.0-1.7) Laboratory Tests Test 04/26/17 04:20 04/26/17 04:25 White Blood Count 11.8 x10^3/uL (4.0-11.0) Red Blood Count 3.77 x10^6/uL (4.30-5.70) Hemoglobin 12.8 g/dL (13.0-17.5) Hematocrit 36.6 % (39.0-53.0) Mean Corpuscular Volume 97 fL (79-100) Mean Corpuscular Hemoglobin 34 pg (25-35) Mean Corpuscular Hemoglobin Concent 35 g/dL (31-37) Red Cell Distribution Width 12.9 % (11.5-14.5) Platelet Count 542 x10^3/uL (140-400) Neutrophils (%) (Auto) 73 % (31-73) Lymphocytes (%) (Auto) 19 % (24-48) Monocytes (%) (Auto) 6 % (0-9) Eosinophils (%) (Auto) 2 % (0-3) Basophils (%) (Auto) 1 % (0-3) Neutrophils # (Auto) 8.6 x10^3uL (1.8-7.7) Lymphocytes # (Auto) 2.2 x10^3/uL (1.0-4.8) Monocytes # (Auto) 0.7 x10^3/uL (0.0-1.1) Eosinophils # (Auto) 0.3 x10^3/uL (0.0-0.7) Basophils # (Auto) 0.1 x10^3/uL (0.0-0.2) Sodium Level 131 mmol/L (136-145) Potassium Level 4.1 mmol/L (3.5-5.1) Chloride Level 99 mmol/L (98-107) Carbon Dioxide Level 24 mmol/L (21-32) Anion Gap 8 (6-14) Blood Urea Nitrogen 13 mg/dL (8-26) Creatinine 0.7 mg/dL (0.7-1.3) Estimated GFR (Cockcroft-Gault) 109.1 Glucose Level 104 mg/dL (70-99) Calcium Level 8.1 mg/dL (8.5-10.1) Medications Current Medications Sodium Chloride 1,000 ml @ 1,000 mls/hr 1X ONCE IV Last administered on 04/18 17:14; Start 04/18/17 at 17:00; Stop 04/18/17 at 17:59; Status DC Metronidazole 100 ml @ 100 mls/hr Q8HRS IV Last administered on 04/26/17 05: 30; Start 04/18/17 at 23:00 Piperacillin Sod/ Tazobactam Sod 3.375 gm/Dextrose 50 ml @ 100 mls/hr 1X ONCE IV ; Start 04/18/17 at 17:15; Stop 04/18/17 at 17:44; Status UNV Piperacillin Sod/ Tazobactam Sod (Zosyn) 3.375 gm 1X ONCE IVP Last administered on 04/18/17 17:41; Start 04/18/17 at 17:15; Stop 04/18/17 at 17 :16; Status DC Metronidazole 100 ml @ 100 mls/hr 1X ONCE IV ; Start 04/18/17 at 17:15; Stop 04/18/17 at 18:14; Status DC Sevoflurane (Ultane) 60 ml STK-MED ONCE IH ; Start 04/18/17 at 17:36; Stop at 17:37; Status DC Fentanyl Citrate (Fentanyl 2ml Vial) 100 mcg STK-MED ONCE .ROUTE ; Start at 17:36; Stop 04/18/17 at 17:37; Status DC Neostigmine Methylsulfate (Bloxiverz) 10 mg STK-MED ONCE .ROUTE ; Start at 17:36; Stop 04/18/17 at 17:37; Status DC Succinylcholine Chloride (Anectine) 200 mg STK-MED ONCE .ROUTE ; Start at 17:36; Stop 04/18/17 at 17:37; Status DC Glycopyrrolate (Robinul) 1 mg STK-MED ONCE .ROUTE ; Start 04/18/17 at 17:37; Stop 04/18/17 at 17:38; Status DC Rocuronium [place] (Zemuron) 50 mg STK-MED ONCE .ROUTE ; Start 04/18/17 at 17: 37; Stop 04/18/17 at 17:38; Status DC Propofol 20 ml @ As Directed STK-MED ONCE IV ; Start 04/18/17 at 17:37; Stop 04/18/17 at 17:38; Status DC Lidocaine HCl (Lidocaine Pf 2% Vial) 5 ml STK-MED ONCE .ROUTE ; Start 04/18/17 at 17:37; Stop 04/18/17 at 17:38; Status DC Dexamethasone Sodium Phosphate (Decadron) 20 mg STK-MED ONCE .ROUTE ; Start at 17:37; Stop 04/18/17 at 17:38; Status DC Ondansetron HCl (Zofran) 4 mg STK-MED ONCE .ROUTE ; Start 04/18/17 at 17:37; Stop 04/18/17 at 17:38; Status DC Tamsulosin HCl (Flomax) 0.4 mg DAILY PO Last administered on 04/26/17 09:17; Start 04/19/17 at 09:00 Losartan Potassium (Cozaar) 50 mg DAILY PO Last administered on 04/26/17 09: 16; Start 04/19/17 at 09:00 Multivitamins 10 ml/Thiamine HCl 100 mg/Ringer's Solution 1,011 ml @ 250 mls/ hr 1X ONCE IV Last administered on 04/19/17 01:24; Start 04/18/17 at 19:00 ; Stop 04/18/17 at 23:02; Status DC Ondansetron HCl (Zofran) 4 mg PRN Q6HRS PRN IV NAUSEA/VOMITING; Start at 19:00; Stop 04/18/17 at 22:00; Status DC Fentanyl Citrate (Fentanyl 2ml Vial) 25 mcg PRN Q5MIN PRN IV MILD PAIN; Start 04/18/17 at 19:00; Stop 04/18/17 at 22:00; Status DC Fentanyl Citrate (Fentanyl 2ml Vial) 50 mcg PRN Q5MIN PRN IV MODERATE PAIN; Start 04/18/17 at 19:00; Stop 04/18/17 at 22:00; Status DC Morphine Sulfate 1 mg PRN Q10MIN PRN IV SEVERE PAIN; Start 04/18/17 at 19:00; Stop 04/18/17 at 22:00; Status DC Ringer's Solution 1,000 ml @ 30 mls/hr Q24H IV ; Start 04/18/17 at 18:50; Stop 04/19/17 at 06:49; Status DC Lidocaine HCl (Xylocaine-Mpf 1% Vial) 2 ml 1X PRN PRN ID IV START; Start 04/18 at 19:00; Stop 04/18/17 at 22:00; Status DC Hydromorphone HCl (Dilaudid) 0.5 mg PRN Q10MIN PRN IV SEV PAIN, Second choice; Start 04/18/17 at 19:00; Stop 04/18/17 at 22:00; Status DC Prochlorperazine Edisylate (Compazine) 5 mg PACU PRN PRN IV NAUSEA, MRX1; Start 04/18/17 at 19:00; Stop 04/18/17 at 22:00; Status DC Bupivacaine HCl/ Epinephrine Bitart (Sensorcain-Mpf Epi 0.5%-[id number]) 30 ml STK -MED ONCE .ROUTE ; Start 04/18/17 at 19:16; Stop 04/18/17 at 19:17; Status DC Fentanyl Citrate (Fentanyl 2ml Vial) 100 mcg STK-MED ONCE .ROUTE ; Start at 19:49; Stop 04/18/17 at 19:50; Status DC Phenylephrine HCl 1 mg STK-MED ONCE IV ; Start 04/18/17 at 20:04; Stop at 20:05; Status DC Cellulose 1 each STK-MED ONCE .ROUTE Last administered on 04/18/17 21:07; Start 04/18/17 at 20:35; Stop 04/18/17 at 20:36; Status DC Cellulose 1 each STK-MED ONCE .ROUTE ; Start 04/18/17 at 21:26; Stop 04/18/17 at 21:27; Status DC Hydromorphone HCl 30 ml @ 0 mls/hr CONT PRN PRN IV PROTOCOL Last administered on 04/18/17 23:53; Start 04/18/17 at 22:30; Stop 04/21/17 at 09:03; Status DC Morphine Sulfate 2 mg STK-MED ONCE .ROUTE ; Start 04/18/17 at 22:47; Stop at 22:48; Status DC Ondansetron HCl (Zofran) 4 mg PRN Q6HRS PRN IV NAUSEA/VOMITING; Start at 23:00; Stop 04/19/17 at 06:00; Status DC Fentanyl Citrate (Fentanyl 2ml Vial) 25 mcg PRN Q5MIN PRN IV MILD PAIN; Start 04/18/17 at 23:00; Stop 04/19/17 at 01:45; Status DC Fentanyl Citrate (Fentanyl 2ml Vial) 50 mcg PRN Q5MIN PRN IV MODERATE PAIN; Start 04/18/17 at 23:00; Stop 04/19/17 at 01:45; Status DC Morphine Sulfate 1 mg PRN Q10MIN PRN IV SEVERE PAIN Last administered on 22:53; Start 04/18/17 at 23:00; Stop 04/19/17 at 01:45; Status DC Hydromorphone HCl (Dilaudid) 0.5 mg PRN Q10MIN PRN IV SEV PAIN, Second choice Last administered on 04/18/17 23:30; Start 04/18/17 at 23:00; Stop 04/19/17 at 01:45; Status DC Prochlorperazine Edisylate (Compazine) 5 mg PACU PRN PRN IV NAUSEA, MRX1 Last administered on 04/18/17 22:59; Start 04/18/17 at 23:00; Stop 04/19/17 at 01 :45; Status DC Albuterol/ Ipratropium (Duoneb) 3 ml 1X PACU PRN NEB SEE COMMENTS Last administered on 04/18/17 23:13; Start 04/18/17 at 23:15; Stop 04/19/17 at 23 :14; Status DC Hydralazine HCl (Apresoline) 10 mg 1X PACU PRN PO HYPERTENSION, SEE COMMENTS; Start 04/18/17 at 23:30; Stop 04/19/17 at 01:45; Status DC Labetalol HCl (Normodyne) 20 mg PRN Q2HR PRN IVP HYPERTENSION, SEE COMMENTS; Start 04/19/17 at 01:45; Stop 04/19/17 at 15:19; Status DC Acetaminophen (Tylenol) 650 mg PRN Q6HRS PRN PO FEVER; Start 04/19/17 at 15:30 Ondansetron HCl (Zofran) 4 mg PRN Q6HRS PRN IV NAUSEA/VOMITING Last administered on 04/25/17 10:48; Start 04/19/17 at 15:30 Morphine Sulfate 2 mg PRN Q2HR PRN IV PAIN; Start 04/19/17 at 15:30; Stop at 10:44; Status DC Tramadol HCl (Ultram) 50 mg PRN Q6HRS PRN PO PAIN; Start 04/19/17 at 15:30 Hydralazine HCl (Apresoline Inj) 10 mg PRN Q4HRS PRN IVP ELEVATED BP, SEE COMMENTS Last administered on 04/19/17 16:15; Start 04/19/17 at 15:30 Docusate Sodium (Colace) 100 mg PRN DAILY PRN PO CONSTIPATION; Start 04/19/17 at 15:30 Lorazepam (Ativan) 2 mg PRN Q4HRS PRN IV ANXIETY / AGITATION Last administered on 04/24/17 19:15; Start 04/19/17 at 15:30; Stop 04/25/17 at 14:58; Status DC Multivitamins 10 ml/Thiamine HCl 100 mg/Dextrose/ Lactated Ringer's 1,011 ml @ 100 mls/hr Q24H IV ; Start 04/19/17 at 16:00; Stop 04/19/17 at 16:00; Status DC Amino Acids/ Glycerin/ Electrolytes 1,000 ml @ 80 mls/hr [id number] IV Last administered on 04/26/17 05:35; Start 04/19/17 at 15:30; Stop 04/26/17 at 12 :24; Status DC Enoxaparin Sodium (Lovenox 40mg Syringe) 40 mg Q24H SQ Last administered on 15:11; Start 04/19/17 at 15:30 Famotidine (Pepcid Vial) 20 mg QHS IVP Last administered on 04/23/17 20:47; Start 04/19/17 at 21:00; Stop 04/24/17 at 15:06; Status DC Multivitamins 10 ml/Thiamine HCl 100 mg/Folic Acid 1 mg/Dextrose/ Lactated Ringer's 1,011.2 ml @ 100.02 mls/hr Q24H IV Last administered on 04/22/17 16 :55; Start 04/19/17 at 16:00; Stop 04/23/17 at 02:07; Status DC Sodium Phosphate 20 mmol/Dextrose 256.6667 ml @ 64.167 m... 1X ONCE IV Last administered on 04/20/17 09:03; Start 04/20/17 at 09:00; Stop 04/20/17 at 12 :59; Status DC Lorazepam (Ativan) 0.5 mg PRN 1X PRN IV ANXIETY / AGITATION Last administered on 04/21/17 02:00; Start 04/21/17 at 01:00; Stop 04/25/17 at 14:58; Status DC Diphenhydramine HCl (Benadryl) 25 mg PRN 1X PRN IVP INSOMNIA Last administered on 04/23/17 20:47; Start 04/21/17 at 01:00 Acetaminophen (Acetaminophen Supp) 650 mg PRN Q6HRS PRN [place] MILD PAIN / TEMP; Start 04/21/17 at 01:00 Sodium Chloride 1,000 ml @ 75 mls/hr [id number] IV Last administered on 06:22; Start 04/21/17 at 09:15; Stop 04/24/17 at 16:57; Status DC Ciprofloxacin/ Dextrose 200 ml @ 200 mls/hr Q12HR IV Last administered on 09:16; Start 04/21/17 at 13:30 Lorazepam (Ativan) 1 mg PRN Q2HR PRN IV Agitation, Anxiety Last administered on 04/25/17 02:41; Start 04/21/17 at 15:30 Hydromorphone HCl (Dilaudid) 0.5 mg PRN Q4HRS PRN IVP SEVERE PAIN Last administered on 04/25/17 07:08; Start 04/22/17 at 11:45 Famotidine (Pepcid) 20 mg QHS PO ; Start 04/24/17 at 21:00 Lactobacillus Rhamnosus (Culturelle) 1 cap BID PO Last administered on 09:17; Start 04/24/17 at 21:00 Bisacodyl (Dulcolax Supp) 10 mg 1X ONCE [place] Last administered on 04/25/17 12: 27; Start 04/25/17 at 11:00; Stop 04/25/17 at 11:01; Status DC Morphine Sulfate 2 mg PRN Q2HR PRN IV MODERATE PAIN Last administered on 00:06; Start 04/25/17 at 10:44 Info 1 each PRN DAILY PRN MC SEE COMMENTS; Start 04/26/17 at 12:30 Active Scripts Active Reported [Ranitidine] PO [Flomax] PO [Losartan] PO DAILY [Vitamin] 1 PO DAILY [Aspirin] Mg PO DAILY Vitals/I & O Vital Sign - Last 24 Hours 04/25/17 04/25/17 04/25/17 04/25/17 15:00 15:14 19:00 20:30 Temp 98.4 97.6 98.4 97.6 Pulse 66 97 Resp 18 18 B/P (MAP) 117/73 (88) 153/84 (107) Pulse Ox 96 96 O2 Delivery Room Air Room Air Room Air Room Air 04/25/17 04/26/17 04/26/17 04/26/17 23:00 00:06 01:00 03:00 Temp 98.3 98.9 98.3 98.9 Pulse 62 57 Resp 24 18 B/P (MAP) 125/71 (89) 125/69 (87) Pulse Ox 91 99 O2 Delivery Room Air Room Air Room Air Room Air 04/26/17 04/26/17 04/26/17 07:00 09:16 11:45 Temp 97.5 97.9 97.5 97.9 Pulse 55 57 61 Resp 18 18 B/P (MAP) 136/78 (97) 125/69 119/67 (84) Pulse Ox 96 97 O2 Delivery Room Air Room Air Intake and Output 04/25/17 04/25/17 04/26/17 15:00 23:00 07:00 Intake Total 1260 ml Output Total 260 ml 110 ml 100 ml Balance -260 ml -110 ml 1160 ml KALYN LOPEZ MD Apr 26, 2017 13:16
[2017-04-26] MEDS: TPN PER PHARMACY MC PRN (13:57)
[2017-04-26] MEDS ORDERED: TPN PER PHARMACY MC PRN (14:15)
[2017-04-26 15:00] VITALS: BP 135/80
[2017-04-26] MEDS ORDERED: NICOTINE 21MG PATCH. TD PRN (16:00)
[2017-04-26] MEDS: ENOXAPARIN 40 MG/0.4 ML SYRINGE. SQ SCH (17:21)
[2017-04-26 19:00] VITALS: BP 147/80
[2017-04-26] MEDS: FAMOTIDINE 20 MG TABLET. PO SCH (21:15)
[2017-04-26] MEDS ORDERED: TOTAL PARENTERAL NUTRITION IV SCH ×10 (22:00)
[2017-04-26] MEDS ORDERED: AMINO ACIDS IV SCH ×10 (22:00)
[2017-04-26] MEDS ORDERED: DEXTROSE 70% IV SCH ×10 (22:00)
[2017-04-26] MEDS ORDERED: [UNRECOGNIZED DRUG - OTHER] IV SCH ×10 (22:00)
[2017-04-26 23:00] VITALS: BP 143/78
[2017-04-27 03:00] VITALS: BP 126/72
[2017-04-27 06:14] LABS: BASO # 0.1 x10^3/uL (0.0-0.2); BASO % 1 % (0-3); EOS % 2 % (0-3); HEMOGLOBIN 12.8 g/dL (13.0-17.5); LYMPH # 2.3 x10^3/uL (1.0-4.8); LYMPH % 19 % (24-48); MEAN CORPUSCULAR HEMOGLOBIN 33 pg (25-35); MEAN CORPUSCULAR HGB CONC 34 g/dL (31-37); MEAN CORPUSCULAR VOLUME 98 fL (79-100); MONO % 7 % (0-9); NEUT % 70 % (31-73); PLATELET COUNT 432 x10^3/uL (140-400); RED BLOOD COUNT 3.89 x10^6/uL (4.30-5.70); RED CELL DISTRIBUTION WIDTH 12.9 % (11.5-14.5); WHITE BLOOD COUNT 11.9 x10^3/uL (4.0-11.0)
[2017-04-27 06:34] LABS: ALBUMIN 2.4 g/dL (3.4-5.0); ALBUMIN/GLOBULIN RATIO 0.6 (1.0-1.7); CALCIUM 8.1 mg/dL (8.5-10.1); CREATININE 0.7 mg/dL (0.7-1.3); GFR 109.1; MAGNESIUM 2.1 mg/dL (1.8-2.4); POTASSIUM 4.2 mmol/L (3.5-5.1); TOTAL BILIRUBIN 0.3 mg/dL (0.2-1.0); TOTAL PROTEIN 6.1 g/dL (6.4-8.2)
[2017-04-27 07:00] VITALS: BP 142/78
--- NOTE | 2017-04-27 08:11 | RAD ---
EXAM: Two view abdomen with one view chest HISTORY: Ileus. COMPARISON: 04/25/2017. FINDINGS: A frontal view of the chest and supine/upright views of the abdomen are obtained. There are mild subpleural interstitial opacities on the left greater than right. Lung volumes are somewhat small. Calcified right hilar lymph nodes are consistent with old granulomatous disease. There is no pneumothorax or pleural effusion. The heart is not enlarged. A right arm PICC line has its tip in the superior cavoatrial junction. Skin manjit scattered throughout the abdomen. Cholecystectomy clips are noted. Surgical drain projects in the right upper quadrant. There is no pneumoperitoneum. There is diffuse moderate distention of small bowel. There is gas distally. IMPRESSION: 1. Findings consistent with interstitial lung disease. 2. Findings suggesting partial small bowel obstruction versus small bowel ileus. There is gas distally.
--- NOTE | 2017-04-27 08:38 | PDOC ---
PROGRESS NOTES Chief Complaint Chief Complaint acute abdominal pain with acute appendicitis s/p open appendectomy Persistent ileus in an alcoholic Metabolic enceph resolved ETOH abuse mild COPD, hyperlipidemia BPH hypophosphatemia mild malnutrition post op sbo vs ileus anemia post 1 u PRBC during sx History of Present Illness History of Present Illness Looks good! Concerned about his insurance and hospital bill Wants to go home soon TPN running, lytes and VS ok NO overnight calls PLAn: Diet per GS Ambulate ad colby - fall risk - no pT needs Vitals Vitals Vital Signs Date Time Temp Pulse Resp B/P (MAP) Pulse Ox O2 Delivery O2 Flow Rate FiO2 04/27/17 07:00 97.8 55 18 142/78 (99) 96 Room Air 97.8 Physical Exam General: Alert, Oriented X3, Cooperative, No acute distress Heart: Regular rate, Normal S1, Normal S2 Lungs: Clear Abdomen: Soft, Other (distended, sylwia serous, incision c/d/i, no erythema ) Extremities: No cyanosis, No edema Skin: No rashes, No breakdown Labs LABS Laboratory Tests Test 04/27/17 05:50 White Blood Count 11.9 x10^3/uL (4.0-11.0) Red Blood Count 3.89 x10^6/uL (4.30-5.70) Hemoglobin 12.8 g/dL (13.0-17.5) Hematocrit 38.0 % (39.0-53.0) Mean Corpuscular Volume 98 fL (79-100) Mean Corpuscular Hemoglobin 33 pg (25-35) Mean Corpuscular Hemoglobin Concent 34 g/dL (31-37) Red Cell Distribution Width 12.9 % (11.5-14.5) Platelet Count 432 x10^3/uL (140-400) Neutrophils (%) (Auto) 70 % (31-73) Lymphocytes (%) (Auto) 19 % (24-48) Monocytes (%) (Auto) 7 % (0-9) Eosinophils (%) (Auto) 2 % (0-3) Basophils (%) (Auto) 1 % (0-3) Neutrophils # (Auto) 8.4 x10^3uL (1.8-7.7) Lymphocytes # (Auto) 2.3 x10^3/uL (1.0-4.8) Monocytes # (Auto) 0.9 x10^3/uL (0.0-1.1) Eosinophils # (Auto) 0.2 x10^3/uL (0.0-0.7) Basophils # (Auto) 0.1 x10^3/uL (0.0-0.2) Sodium Level 134 mmol/L (136-145) Potassium Level 4.2 mmol/L (3.5-5.1) Chloride Level 102 mmol/L (98-107) Carbon Dioxide Level 25 mmol/L (21-32) Anion Gap 7 (6-14) Blood Urea Nitrogen 12 mg/dL (8-26) Creatinine 0.7 mg/dL (0.7-1.3) Estimated GFR (Cockcroft-Gault) 109.1 BUN/Creatinine Ratio 17 (6-20) Glucose Level 133 mg/dL (70-99) Calcium Level 8.1 mg/dL (8.5-10.1) Phosphorus Level 3.0 mg/dL (2.6-4.7) Magnesium Level 2.1 mg/dL (1.8-2.4) Total Bilirubin 0.3 mg/dL (0.2-1.0) Aspartate Amino Transf (AST/SGOT) 30 U/L (15-37) Alanine Aminotransferase (ALT/SGPT) 43 U/L (16-63) Alkaline Phosphatase 50 U/L (46-116) Total Protein 6.1 g/dL (6.4-8.2) Albumin 2.4 g/dL (3.4-5.0) Albumin/Globulin Ratio 0.6 (1.0-1.7) Triglycerides Level 124 mg/dL (0-150) Review of Systems Review of Systems no abd pain, emesis, lighheadedness, CP, SOA Assessment and Plan Assessmemt and Plan Problems Medical Problems: (1) ETOH abuse Status: Acute Problems: Comment Review of Relevant I have reviewed the following items nika (where applicable) has been applied. Labs Laboratory Tests Test 04/26/17 04:20 04/26/17 04:25 04/27/17 05:50 White Blood Count 11.8 x10^3/uL (4.0-11.0) 11.9 x10^3/uL (4.0-11.0) Red Blood Count 3.77 x10^6/uL (4.30-5.70) 3.89 x10^6/uL (4.30-5.70) Hemoglobin 12.8 g/dL (13.0-17.5) 12.8 g/dL (13.0-17.5) Hematocrit 36.6 % (39.0-53.0) 38.0 % (39.0-53.0) Mean Corpuscular Volume 97 fL (79-100) 98 fL (79-100) Mean Corpuscular Hemoglobin 34 pg (25-35) 33 pg (25-35) Mean Corpuscular Hemoglobin Concent 35 g/dL (31-37) 34 g/dL (31-37) Red Cell Distribution Width 12.9 % (11.5-14.5) 12.9 % (11.5-14.5) Platelet Count 542 x10^3/uL (140-400) 432 x10^3/uL (140-400) Neutrophils (%) (Auto) 73 % (31-73) 70 % (31-73) Lymphocytes (%) (Auto) 19 % (24-48) 19 % (24-48) Monocytes (%) (Auto) 6 % (0-9) 7 % (0-9) Eosinophils (%) (Auto) 2 % (0-3) 2 % (0-3) Basophils (%) (Auto) 1 % (0-3) 1 % (0-3) Neutrophils # (Auto) 8.6 x10^3uL (1.8-7.7) 8.4 x10^3uL (1.8-7.7) Lymphocytes # (Auto) 2.2 x10^3/uL (1.0-4.8) 2.3 x10^3/uL (1.0-4.8) Monocytes # (Auto) 0.7 x10^3/uL (0.0-1.1) 0.9 x10^3/uL (0.0-1.1) Eosinophils # (Auto) 0.3 x10^3/uL (0.0-0.7) 0.2 x10^3/uL (0.0-0.7) Basophils # (Auto) 0.1 x10^3/uL (0.0-0.2) 0.1 x10^3/uL (0.0-0.2) Sodium Level 131 mmol/L (136-145) 134 mmol/L (136-145) Potassium Level 4.1 mmol/L (3.5-5.1) 4.2 mmol/L (3.5-5.1) Chloride Level 99 mmol/L (98-107) 102 mmol/L (98-107) Carbon Dioxide Level 24 mmol/L (21-32) 25 mmol/L (21-32) Anion Gap 8 (6-14) 7 (6-14) Blood Urea Nitrogen 13 mg/dL (8-26) 12 mg/dL (8-26) Creatinine 0.7 mg/dL (0.7-1.3) 0.7 mg/dL (0.7-1.3) Estimated GFR (Cockcroft-Gault) 109.1 109.1 Glucose Level 104 mg/dL (70-99) 133 mg/dL (70-99) Calcium Level 8.1 mg/dL (8.5-10.1) 8.1 mg/dL (8.5-10.1) BUN/Creatinine Ratio 17 (6-20) Phosphorus Level 3.0 mg/dL (2.6-4.7) Magnesium Level 2.1 mg/dL (1.8-2.4) Total Bilirubin 0.3 mg/dL (0.2-1.0) Aspartate Amino Transf (AST/SGOT) 30 U/L (15-37) Alanine Aminotransferase (ALT/SGPT) 43 U/L (16-63) Alkaline Phosphatase 50 U/L (46-116) Total Protein 6.1 g/dL (6.4-8.2) Albumin 2.4 g/dL (3.4-5.0) Albumin/Globulin Ratio 0.6 (1.0-1.7) Triglycerides Level 124 mg/dL (0-150) Laboratory Tests Test 04/27/17 05:50 White Blood Count 11.9 x10^3/uL (4.0-11.0) Red Blood Count 3.89 x10^6/uL (4.30-5.70) Hemoglobin 12.8 g/dL (13.0-17.5) Hematocrit 38.0 % (39.0-53.0) Mean Corpuscular Volume 98 fL (79-100) Mean Corpuscular Hemoglobin 33 pg (25-35) Mean Corpuscular Hemoglobin Concent 34 g/dL (31-37) Red Cell Distribution Width 12.9 % (11.5-14.5) Platelet Count 432 x10^3/uL (140-400) Neutrophils (%) (Auto) 70 % (31-73) Lymphocytes (%) (Auto) 19 % (24-48) Monocytes (%) (Auto) 7 % (0-9) Eosinophils (%) (Auto) 2 % (0-3) Basophils (%) (Auto) 1 % (0-3) Neutrophils # (Auto) 8.4 x10^3uL (1.8-7.7) Lymphocytes # (Auto) 2.3 x10^3/uL (1.0-4.8) Monocytes # (Auto) 0.9 x10^3/uL (0.0-1.1) Eosinophils # (Auto) 0.2 x10^3/uL (0.0-0.7) Basophils # (Auto) 0.1 x10^3/uL (0.0-0.2) Sodium Level 134 mmol/L (136-145) Potassium Level 4.2 mmol/L (3.5-5.1) Chloride Level 102 mmol/L (98-107) Carbon Dioxide Level 25 mmol/L (21-32) Anion Gap 7 (6-14) Blood Urea Nitrogen 12 mg/dL (8-26) Creatinine 0.7 mg/dL (0.7-1.3) Estimated GFR (Cockcroft-Gault) 109.1 BUN/Creatinine Ratio 17 (6-20) Glucose Level 133 mg/dL (70-99) Calcium Level 8.1 mg/dL (8.5-10.1) Phosphorus Level 3.0 mg/dL (2.6-4.7) Magnesium Level 2.1 mg/dL (1.8-2.4) Total Bilirubin 0.3 mg/dL (0.2-1.0) Aspartate Amino Transf (AST/SGOT) 30 U/L (15-37) Alanine Aminotransferase (ALT/SGPT) 43 U/L (16-63) Alkaline Phosphatase 50 U/L (46-116) Total Protein 6.1 g/dL (6.4-8.2) Albumin 2.4 g/dL (3.4-5.0) Albumin/Globulin Ratio 0.6 (1.0-1.7) Triglycerides Level 124 mg/dL (0-150) Medications Current Medications Sodium Chloride 1,000 ml @ 1,000 mls/hr 1X ONCE IV Last administered on 04/18t 17:14; Start 04/18/17 at 17:00; Stop 04/18/17 at 17:59; Status DC Metronidazole 100 ml @ 100 mls/hr Q8HRS IV Last administered on 04/27/17 05: 48; Start 04/18/17 at 23:00 Piperacillin Sod/ Tazobactam Sod 3.375 gm/Dextrose 50 ml @ 100 mls/hr 1X ONCE IV ; Start 04/18/17 at 17:15; Stop 04/18/17 at 17:44; Status UNV Piperacillin Sod/ Tazobactam Sod (Zosyn) 3.375 gm 1X ONCE IVP Last administered on 04/18/17 17:41; Start 04/18/17 at 17:15; Stop 04/18/17 at 17 :16; Status DC Metronidazole 100 ml @ 100 mls/hr 1X ONCE IV ; Start 04/18/17 at 17:15; Stop 04/18/17 at 18:14; Status DC Sevoflurane (Ultane) 60 ml STK-MED ONCE IH ; Start 04/18/17 at 17:36; Stop at 17:37; Status DC Fentanyl Citrate (Fentanyl 2ml Vial) 100 mcg STK-MED ONCE .ROUTE ; Start at 17:36; Stop 04/18/17 at 17:37; Status DC Neostigmine Methylsulfate (Bloxiverz) 10 mg STK-MED ONCE .ROUTE ; Start at 17:36; Stop 04/18/17 at 17:37; Status DC Succinylcholine Chloride (Anectine) 200 mg STK-MED ONCE .ROUTE ; Start at 17:36; Stop 04/18/17 at 17:37; Status DC Glycopyrrolate (Robinul) 1 mg STK-MED ONCE .ROUTE ; Start 04/18/17 at 17:37; Stop 04/18/17 at 17:38; Status DC Rocuronium [place] (Zemuron) 50 mg STK-MED ONCE .ROUTE ; Start 04/18/17 at 17: 37; Stop 04/18/17 at 17:38; Status DC Propofol 20 ml @ As Directed STK-MED ONCE IV ; Start 04/18/17 at 17:37; Stop 04/18/17 at 17:38; Status DC Lidocaine HCl (Lidocaine Pf 2% Vial) 5 ml STK-MED ONCE .ROUTE ; Start 04/18/17 at 17:37; Stop 04/18/17 at 17:38; Status DC Dexamethasone Sodium Phosphate (Decadron) 20 mg STK-MED ONCE .ROUTE ; Start at 17:37; Stop 04/18/17 at 17:38; Status DC Ondansetron HCl (Zofran) 4 mg STK-MED ONCE .ROUTE ; Start 04/18/17 at 17:37; Stop 04/18/17 at 17:38; Status DC Tamsulosin HCl (Flomax) 0.4 mg DAILY PO Last administered on 04/26/17 09:17; Start 04/19/17 at 09:00 Losartan Potassium (Cozaar) 50 mg DAILY PO Last administered on 04/26/17 09: 16; Start 04/19/17 at 09:00 Multivitamins 10 ml/Thiamine HCl 100 mg/Ringer's Solution 1,011 ml @ 250 mls/ hr 1X ONCE IV Last administered on 04/19/17 01:24; Start 04/18/17 at 19:00 ; Stop 04/18/17 at 23:02; Status DC Ondansetron HCl (Zofran) 4 mg PRN Q6HRS PRN IV NAUSEA/VOMITING; Start at 19:00; Stop 04/18/17 at 22:00; Status DC Fentanyl Citrate (Fentanyl 2ml Vial) 25 mcg PRN Q5MIN PRN IV MILD PAIN; Start 04/18/17 at 19:00; Stop 04/18/17 at 22:00; Status DC Fentanyl Citrate (Fentanyl 2ml Vial) 50 mcg PRN Q5MIN PRN IV MODERATE PAIN; Start 04/18/17 at 19:00; Stop 04/18/17 at 22:00; Status DC Morphine Sulfate 1 mg PRN Q10MIN PRN IV SEVERE PAIN; Start 04/18/17 at 19:00; Stop 04/18/17 at 22:00; Status DC Ringer's Solution 1,000 ml @ 30 mls/hr Q24H IV ; Start 04/18/17 at 18:50; Stop 04/19/17 at 06:49; Status DC Lidocaine HCl (Xylocaine-Mpf 1% Vial) 2 ml 1X PRN PRN ID IV START; Start 04/18 at 19:00; Stop 04/18/17 at 22:00; Status DC Hydromorphone HCl (Dilaudid) 0.5 mg PRN Q10MIN PRN IV SEV PAIN, Second choice; Start 04/18/17 at 19:00; Stop 04/18/17 at 22:00; Status DC Prochlorperazine Edisylate (Compazine) 5 mg PACU PRN PRN IV NAUSEA, MRX1; Start 04/18/17 at 19:00; Stop 04/18/17 at 22:00; Status DC Bupivacaine HCl/ Epinephrine Bitart (Sensorcain-Mpf Epi 0.5%-[id number]) 30 ml STK -MED ONCE .ROUTE ; Start 04/18/17 at 19:16; Stop 04/18/17 at 19:17; Status DC Fentanyl Citrate (Fentanyl 2ml Vial) 100 mcg STK-MED ONCE .ROUTE ; Start at 19:49; Stop 04/18/17 at 19:50; Status DC Phenylephrine HCl 1 mg STK-MED ONCE IV ; Start 04/18/17 at 20:04; Stop at 20:05; Status DC Cellulose 1 each STK-MED ONCE .ROUTE Last administered on 04/18/17 21:07; Start 04/18/17 at 20:35; Stop 04/18/17 at 20:36; Status DC Cellulose 1 each STK-MED ONCE .ROUTE ; Start 04/18/17 at 21:26; Stop 04/18/17 at 21:27; Status DC Hydromorphone HCl 30 ml @ 0 mls/hr CONT PRN PRN IV PROTOCOL Last administered on 04/18/17t 23:53; Start 04/18/17 at 22:30; Stop 04/21/17 at 09:03; Status DC Morphine Sulfate 2 mg STK-MED ONCE .ROUTE ; Start 04/18/17 at 22:47; Stop at 22:48; Status DC Ondansetron HCl (Zofran) 4 mg PRN Q6HRS PRN IV NAUSEA/VOMITING; Start at 23:00; Stop 04/19/17 at 06:00; Status DC Fentanyl Citrate (Fentanyl 2ml Vial) 25 mcg PRN Q5MIN PRN IV MILD PAIN; Start 04/18/17 at 23:00; Stop 04/19/17 at 01:45; Status DC Fentanyl Citrate (Fentanyl 2ml Vial) 50 mcg PRN Q5MIN PRN IV MODERATE PAIN; Start 04/18/17 at 23:00; Stop 04/19/17 at 01:45; Status DC Morphine Sulfate 1 mg PRN Q10MIN PRN IV SEVERE PAIN Last administered on 22:53; Start 04/18/17 at 23:00; Stop 04/19/17 at 01:45; Status DC Hydromorphone HCl (Dilaudid) 0.5 mg PRN Q10MIN PRN IV SEV PAIN, Second choice Last administered on 04/18/17 23:30; Start 04/18/17 at 23:00; Stop 04/19/17 at 01:45; Status DC Prochlorperazine Edisylate (Compazine) 5 mg PACU PRN PRN IV NAUSEA, MRX1 Last administered on 04/18/17 22:59; Start 04/18/17 at 23:00; Stop 04/19/17 at 01 :45; Status DC Albuterol/ Ipratropium (Duoneb) 3 ml 1X PACU PRN NEB SEE COMMENTS Last administered on 04/18/17 23:13; Start 04/18/17 at 23:15; Stop 04/19/17 at 23 :14; Status DC Hydralazine HCl (Apresoline) 10 mg 1X PACU PRN PO HYPERTENSION, SEE COMMENTS; Start 04/18/17 at 23:30; Stop 04/19/17 at 01:45; Status DC Labetalol HCl (Normodyne) 20 mg PRN Q2HR PRN IVP HYPERTENSION, SEE COMMENTS; Start 04/19/17 at 01:45; Stop 04/19/17 at 15:19; Status DC Acetaminophen (Tylenol) 650 mg PRN Q6HRS PRN PO FEVER; Start 04/19/17 at 15:30 Ondansetron HCl (Zofran) 4 mg PRN Q6HRS PRN IV NAUSEA/VOMITING Last administered on 04/25/17 10:48; Start 04/19/17 at 15:30 Morphine Sulfate 2 mg PRN Q2HR PRN IV PAIN; Start 04/19/17 at 15:30; Stop at 10:44; Status DC Tramadol HCl (Ultram) 50 mg PRN Q6HRS PRN PO PAIN; Start 04/19/17 at 15:30 Hydralazine HCl (Apresoline Inj) 10 mg PRN Q4HRS PRN IVP ELEVATED BP, SEE COMMENTS Last administered on 04/19/17 16:15; Start 04/19/17 at 15:30 Docusate Sodium (Colace) 100 mg PRN DAILY PRN PO CONSTIPATION; Start 04/19/17 at 15:30 Lorazepam (Ativan) 2 mg PRN Q4HRS PRN IV ANXIETY / AGITATION Last administered on 04/24/17 19:15; Start 04/19/17 at 15:30; Stop 04/25/17 at 14:58; Status DC Multivitamins 10 ml/Thiamine HCl 100 mg/Dextrose/ Lactated Ringer's 1,011 ml @ 100 mls/hr Q24H IV ; Start 04/19/17 at 16:00; Stop 04/19/17 at 16:00; Status DC Amino Acids/ Glycerin/ Electrolytes 1,000 ml @ 80 mls/hr [id number] IV Last administered on 04/26/17 05:35; Start 04/19/17 at 15:30; Stop 04/26/17 at 12 :24; Status DC Enoxaparin Sodium (Lovenox 40mg Syringe) 40 mg Q24H SQ Last administered on 17:21; Start 04/19/17 at 15:30 Famotidine (Pepcid Vial) 20 mg QHS IVP Last administered on 04/23/17 20:47; Start 04/19/17 at 21:00; Stop 04/24/17 at 15:06; Status DC Multivitamins 10 ml/Thiamine HCl 100 mg/Folic Acid 1 mg/Dextrose/ Lactated Ringer's 1,011.2 ml @ 100.02 mls/hr Q24H IV Last administered on 04/22/17 16 :55; Start 04/19/17 at 16:00; Stop 04/23/17 at 02:07; Status DC Sodium Phosphate 20 mmol/Dextrose 256.6667 ml @ 64.167 m... 1X ONCE IV Last administered on 04/20/17 09:03; Start 04/20/17 at 09:00; Stop 04/20/17 at 12 :59; Status DC Lorazepam (Ativan) 0.5 mg PRN 1X PRN IV ANXIETY / AGITATION Last administered on 04/21/17 02:00; Start 04/21/17 at 01:00; Stop 04/25/17 at 14:58; Status DC Diphenhydramine HCl (Benadryl) 25 mg PRN 1X PRN IVP INSOMNIA Last administered on 04/23/17 20:47; Start 04/21/17 at 01:00 Acetaminophen (Acetaminophen Supp) 650 mg PRN Q6HRS PRN IN MILD PAIN / TEMP; Start 04/21/17 at 01:00 Sodium Chloride 1,000 ml @ 75 mls/hr [id number] IV Last administered on 06:22; Start 04/21/17 at 09:15; Stop 04/24/17 at 16:57; Status DC Ciprofloxacin/ Dextrose 200 ml @ 200 mls/hr Q12HR IV Last administered on 21:15; Start 04/21/17 at 13:30 Lorazepam (Ativan) 1 mg PRN Q2HR PRN IV Agitation, Anxiety Last administered on 04/26/17 21:15; Start 04/21/17 at 15:30 Hydromorphone HCl (Dilaudid) 0.5 mg PRN Q4HRS PRN IVP SEVERE PAIN Last administered on 04/25/17 07:08; Start 04/22/17 at 11:45 Famotidine (Pepcid) 20 mg QHS PO Last administered on 04/26/17 21:15; Start 04/24/17 at 21:00 Lactobacillus Rhamnosus (Culturelle) 1 cap BID PO Last administered on 21:15; Start 04/24/17 at 21:00 Bisacodyl (Dulcolax Supp) 10 mg 1X ONCE IN Last administered on 04/25/17 12: 27; Start 04/25/17 at 11:00; Stop 04/25/17 at 11:01; Status DC Morphine Sulfate 2 mg PRN Q2HR PRN IV MODERATE PAIN Last administered on 00:06; Start 04/25/17 at 10:44 Info 1 each PRN DAILY PRN MC SEE COMMENTS Last administered on 04/26/17 13:57 ; Start 04/26/17 at 12:30 Sodium Chloride 90 meq/Potassium Chloride 50 meq/ Potassium Phosphate 13.6 mmol/ Magnesium Sulfate 10 meq/ Calcium Gluconate 10 meq/ Multivitamins 10 ml/Chromium / Copper/Manganese/ Seleni/Zn 1 ml/ Total Parenteral Nutrition/Amino Acids/ Dextrose/ Fat Emulsion Intravenous 1,512 ml @ 63 mls/hr TPN CONT IV Last administered on 04/26/17 22:13; Start 04/26/17 at 22:00; Stop 04/27/17 at 21 :59 Info 1 each PRN DAILY PRN MC SEE COMMENTS; Start 04/26/17 at 14:15; Status UNV Nicotine (Nicoderm Cq 21mg) 1 patch PRN DAILY PRN TD SMOKING CESSATION; Start 04/26/17 at 16:00 Active Scripts Active Reported [Ranitidine] PO [Flomax] PO [Losartan] PO DAILY [Vitamin] 1 PO DAILY [Aspirin] Mg PO DAILY Vitals/I & O Vital Sign - Last 24 Hours 04/26/17 04/26/17 04/26/17 04/26/17 09:16 11:45 15:00 19:00 Temp 97.9 98.1 98.1 97.9 98.1 98.1 Pulse 57 61 57 61 Resp 18 18 18 B/P (MAP) 125/69 119/67 (84) 135/80 (98) 147/80 (102) Pulse Ox 97 97 98 O2 Delivery Room Air Room Air Room Air 04/26/17 04/26/17 04/27/17 04/27/17 20:30 23:00 03:00 07:00 Temp 97.3 97.6 97.8 97.3 97.6 97.8 Pulse 60 53 55 Resp 18 18 18 B/P (MAP) 143/78 (99) 126/72 (90) 142/78 (99) Pulse Ox 96 97 96 O2 Delivery Room Air Room Air Room Air Room Air Intake and Output 04/26/17 04/26/17 04/27/17 15:00 23:00 07:00 Intake Total 0 ml Output Total 70 ml Balance -70 ml KALYN LOPEZ MD Apr 27, 2017 08:38
[2017-04-27] MEDS: ONDANSETRON PF 4 MG/2 ML VIAL. IV PRN (10:01)
[2017-04-27] MEDS: LACTOBACILLUS RHAMNOSUS GG 1 CAPSULE. PO SCH ×2 (10:01→20:58)
[2017-04-27] MEDS: TAMSULOSIN 0.4 MG CAP.ER.24H. PO SCH (10:01)
[2017-04-27] MEDS: LOSARTAN POTASSIUM 50 MG TABLET. PO SCH (10:01)
[2017-04-27] MEDS: CIPROFLOXACIN 400MG PREMIX 200 ML IV SCH ×2 (10:02→20:58)
[2017-04-27 11:00] VITALS: BP 155/82
[2017-04-27] MEDS: TPN PER PHARMACY MC PRN (11:32)
[2017-04-27] MEDS: ENOXAPARIN 40 MG/0.4 ML SYRINGE. SQ SCH (13:36)
--- NOTE | 2017-04-27 14:47 | PDOC ---
PROGRESS NOTES Subjective Subjective no complaints, no pain, passing gas, states he's having loose stool but not recorded last 24 hours Objective Objective Vital Signs Date Time Temp Pulse Resp B/P (MAP) Pulse Ox O2 Delivery O2 Flow Rate FiO2 04/27/17 11:00 97.5 52 20 155/82 (106) 94 Room Air 97.5 04/21/17 08:00 10.0 Intake and Output 04/27/17 07:00 Intake Total 0 ml Output Total 70 ml Balance -70 ml Intake Oral 0 ml Drainage Total 70 ml # Voids 11 Physical Exam Abdomen: Soft (mild distension), No tenderness Heart: Regular rate, Normal S1, Normal S2 Extremities: No clubbing, No cyanosis General: Alert, Oriented X3, Cooperative Assessment Assessment Problems Medical Problems: (1) ETOH abuse Status: Acute Plan Plan of Care S/P open appy, postop ileus, PSBO possible, but ileus more likely; pt passing gas, but KUB still with gaseous distension; continue with TPN, bowel rest; if won't resolve may consider SB series Comment Review of Relevant I have reviewed the following items nika (where applicable) has been applied. Labs Laboratory Tests Test 04/26/17 04:20 04/26/17 04:25 04/27/17 05:50 White Blood Count 11.8 x10^3/uL (4.0-11.0) 11.9 x10^3/uL (4.0-11.0) Red Blood Count 3.77 x10^6/uL (4.30-5.70) 3.89 x10^6/uL (4.30-5.70) Hemoglobin 12.8 g/dL (13.0-17.5) 12.8 g/dL (13.0-17.5) Hematocrit 36.6 % (39.0-53.0) 38.0 % (39.0-53.0) Mean Corpuscular Volume 97 fL (79-100) 98 fL (79-100) Mean Corpuscular Hemoglobin 34 pg (25-35) 33 pg (25-35) Mean Corpuscular Hemoglobin Concent 35 g/dL (31-37) 34 g/dL (31-37) Red Cell Distribution Width 12.9 % (11.5-14.5) 12.9 % (11.5-14.5) Platelet Count 542 x10^3/uL (140-400) 432 x10^3/uL (140-400) Neutrophils (%) (Auto) 73 % (31-73) 70 % (31-73) Lymphocytes (%) (Auto) 19 % (24-48) 19 % (24-48) Monocytes (%) (Auto) 6 % (0-9) 7 % (0-9) Eosinophils (%) (Auto) 2 % (0-3) 2 % (0-3) Basophils (%) (Auto) 1 % (0-3) 1 % (0-3) Neutrophils # (Auto) 8.6 x10^3uL (1.8-7.7) 8.4 x10^3uL (1.8-7.7) Lymphocytes # (Auto) 2.2 x10^3/uL (1.0-4.8) 2.3 x10^3/uL (1.0-4.8) Monocytes # (Auto) 0.7 x10^3/uL (0.0-1.1) 0.9 x10^3/uL (0.0-1.1) Eosinophils # (Auto) 0.3 x10^3/uL (0.0-0.7) 0.2 x10^3/uL (0.0-0.7) Basophils # (Auto) 0.1 x10^3/uL (0.0-0.2) 0.1 x10^3/uL (0.0-0.2) Sodium Level 131 mmol/L (136-145) 134 mmol/L (136-145) Potassium Level 4.1 mmol/L (3.5-5.1) 4.2 mmol/L (3.5-5.1) Chloride Level 99 mmol/L (98-107) 102 mmol/L (98-107) Carbon Dioxide Level 24 mmol/L (21-32) 25 mmol/L (21-32) Anion Gap 8 (6-14) 7 (6-14) Blood Urea Nitrogen 13 mg/dL (8-26) 12 mg/dL (8-26) Creatinine 0.7 mg/dL (0.7-1.3) 0.7 mg/dL (0.7-1.3) Estimated GFR (Cockcroft-Gault) 109.1 109.1 Glucose Level 104 mg/dL (70-99) 133 mg/dL (70-99) Calcium Level 8.1 mg/dL (8.5-10.1) 8.1 mg/dL (8.5-10.1) BUN/Creatinine Ratio 17 (6-20) Phosphorus Level 3.0 mg/dL (2.6-4.7) Magnesium Level 2.1 mg/dL (1.8-2.4) Total Bilirubin 0.3 mg/dL (0.2-1.0) Aspartate Amino Transf (AST/SGOT) 30 U/L (15-37) Alanine Aminotransferase (ALT/SGPT) 43 U/L (16-63) Alkaline Phosphatase 50 U/L (46-116) Total Protein 6.1 g/dL (6.4-8.2) Albumin 2.4 g/dL (3.4-5.0) Albumin/Globulin Ratio 0.6 (1.0-1.7) Triglycerides Level 124 mg/dL (0-150) Laboratory Tests Test 04/27/17 05:50 White Blood Count 11.9 x10^3/uL (4.0-11.0) Red Blood Count 3.89 x10^6/uL (4.30-5.70) Hemoglobin 12.8 g/dL (13.0-17.5) Hematocrit 38.0 % (39.0-53.0) Mean Corpuscular Volume 98 fL (79-100) Mean Corpuscular Hemoglobin 33 pg (25-35) Mean Corpuscular Hemoglobin Concent 34 g/dL (31-37) Red Cell Distribution Width 12.9 % (11.5-14.5) Platelet Count 432 x10^3/uL (140-400) Neutrophils (%) (Auto) 70 % (31-73) Lymphocytes (%) (Auto) 19 % (24-48) Monocytes (%) (Auto) 7 % (0-9) Eosinophils (%) (Auto) 2 % (0-3) Basophils (%) (Auto) 1 % (0-3) Neutrophils # (Auto) 8.4 x10^3uL (1.8-7.7) Lymphocytes # (Auto) 2.3 x10^3/uL (1.0-4.8) Monocytes # (Auto) 0.9 x10^3/uL (0.0-1.1) Eosinophils # (Auto) 0.2 x10^3/uL (0.0-0.7) Basophils # (Auto) 0.1 x10^3/uL (0.0-0.2) Sodium Level 134 mmol/L (136-145) Potassium Level 4.2 mmol/L (3.5-5.1) Chloride Level 102 mmol/L (98-107) Carbon Dioxide Level 25 mmol/L (21-32) Anion Gap 7 (6-14) Blood Urea Nitrogen 12 mg/dL (8-26) Creatinine 0.7 mg/dL (0.7-1.3) Estimated GFR (Cockcroft-Gault) 109.1 BUN/Creatinine Ratio 17 (6-20) Glucose Level 133 mg/dL (70-99) Calcium Level 8.1 mg/dL (8.5-10.1) Phosphorus Level 3.0 mg/dL (2.6-4.7) Magnesium Level 2.1 mg/dL (1.8-2.4) Total Bilirubin 0.3 mg/dL (0.2-1.0) Aspartate Amino Transf (AST/SGOT) 30 U/L (15-37) Alanine Aminotransferase (ALT/SGPT) 43 U/L (16-63) Alkaline Phosphatase 50 U/L (46-116) Total Protein 6.1 g/dL (6.4-8.2) Albumin 2.4 g/dL (3.4-5.0) Albumin/Globulin Ratio 0.6 (1.0-1.7) Triglycerides Level 124 mg/dL (0-150) Medications Current Medications Sodium Chloride 1,000 ml @ 1,000 mls/hr 1X ONCE IV Last administered on 04/18t 17:14; Start 04/18/17 at 17:00; Stop 04/18/17 at 17:59; Status DC Metronidazole 100 ml @ 100 mls/hr Q8HRS IV Last administered on 04/27/17t 13: 36; Start 04/18/17 at 23:00 Piperacillin Sod/ Tazobactam Sod 3.375 gm/Dextrose 50 ml @ 100 mls/hr 1X ONCE IV ; Start 04/18/17 at 17:15; Stop 04/18/17 at 17:44; Status UNV Piperacillin Sod/ Tazobactam Sod (Zosyn) 3.375 gm 1X ONCE IVP Last administered on 04/18/17t 17:41; Start 04/18/17 at 17:15; Stop 04/18/17 at 17 :16; Status DC Metronidazole 100 ml @ 100 mls/hr 1X ONCE IV ; Start 04/18/17 at 17:15; Stop 04/18/17 at 18:14; Status DC Sevoflurane (Ultane) 60 ml STK-MED ONCE IH ; Start 04/18/17 at 17:36; Stop at 17:37; Status DC Fentanyl Citrate (Fentanyl 2ml Vial) 100 mcg STK-MED ONCE .ROUTE ; Start at 17:36; Stop 04/18/17 at 17:37; Status DC Neostigmine Methylsulfate (Bloxiverz) 10 mg STK-MED ONCE .ROUTE ; Start at 17:36; Stop 04/18/17 at 17:37; Status DC Succinylcholine Chloride (Anectine) 200 mg STK-MED ONCE .ROUTE ; Start at 17:36; Stop 04/18/17 at 17:37; Status DC Glycopyrrolate (Robinul) 1 mg STK-MED ONCE .ROUTE ; Start 04/18/17 at 17:37; Stop 04/18/17 at 17:38; Status DC Rocuronium [place] (Zemuron) 50 mg STK-MED ONCE .ROUTE ; Start 04/18/17 at 17: 37; Stop 04/18/17 at 17:38; Status DC Propofol 20 ml @ As Directed STK-MED ONCE IV ; Start 04/18/17 at 17:37; Stop 04/18/17 at 17:38; Status DC Lidocaine HCl (Lidocaine Pf 2% Vial) 5 ml STK-MED ONCE .ROUTE ; Start 04/18/17 at 17:37; Stop 04/18/17 at 17:38; Status DC Dexamethasone Sodium Phosphate (Decadron) 20 mg STK-MED ONCE .ROUTE ; Start at 17:37; Stop 04/18/17 at 17:38; Status DC Ondansetron HCl (Zofran) 4 mg STK-MED ONCE .ROUTE ; Start 04/18/17 at 17:37; Stop 04/18/17 at 17:38; Status DC Tamsulosin HCl (Flomax) 0.4 mg DAILY PO Last administered on 04/27/17 10:01; Start 04/19/17 at 09:00 Losartan Potassium (Cozaar) 50 mg DAILY PO Last administered on 04/27/17 10: 01; Start 04/19/17 at 09:00 Multivitamins 10 ml/Thiamine HCl 100 mg/Ringer's Solution 1,011 ml @ 250 mls/ hr 1X ONCE IV Last administered on 04/19/17 01:24; Start 04/18/17 at 19:00 ; Stop 04/18/17 at 23:02; Status DC Ondansetron HCl (Zofran) 4 mg PRN Q6HRS PRN IV NAUSEA/VOMITING; Start at 19:00; Stop 04/18/17 at 22:00; Status DC Fentanyl Citrate (Fentanyl 2ml Vial) 25 mcg PRN Q5MIN PRN IV MILD PAIN; Start 04/18/17 at 19:00; Stop 04/18/17 at 22:00; Status DC Fentanyl Citrate (Fentanyl 2ml Vial) 50 mcg PRN Q5MIN PRN IV MODERATE PAIN; Start 04/18/17 at 19:00; Stop 04/18/17 at 22:00; Status DC Morphine Sulfate 1 mg PRN Q10MIN PRN IV SEVERE PAIN; Start 04/18/17 at 19:00; Stop 04/18/17 at 22:00; Status DC Ringer's Solution 1,000 ml @ 30 mls/hr Q24H IV ; Start 04/18/17 at 18:50; Stop 04/19/17 at 06:49; Status DC Lidocaine HCl (Xylocaine-Mpf 1% Vial) 2 ml 1X PRN PRN ID IV START; Start 04/18 at 19:00; Stop 04/18/17 at 22:00; Status DC Hydromorphone HCl (Dilaudid) 0.5 mg PRN Q10MIN PRN IV SEV PAIN, Second choice; Start 04/18/17 at 19:00; Stop 04/18/17 at 22:00; Status DC Prochlorperazine Edisylate (Compazine) 5 mg PACU PRN PRN IV NAUSEA, MRX1; Start 04/18/17 at 19:00; Stop 04/18/17 at 22:00; Status DC Bupivacaine HCl/ Epinephrine Bitart (Sensorcain-Mpf Epi 0.5%-[id number]) 30 ml STK -MED ONCE .ROUTE ; Start 04/18/17 at 19:16; Stop 04/18/17 at 19:17; Status DC Fentanyl Citrate (Fentanyl 2ml Vial) 100 mcg STK-MED ONCE .ROUTE ; Start at 19:49; Stop 04/18/17 at 19:50; Status DC Phenylephrine HCl 1 mg STK-MED ONCE IV ; Start 04/18/17 at 20:04; Stop at 20:05; Status DC Cellulose 1 each STK-MED ONCE .ROUTE Last administered on 04/18/17 21:07; Start 04/18/17 at 20:35; Stop 04/18/17 at 20:36; Status DC Cellulose 1 each STK-MED ONCE .ROUTE ; Start 04/18/17 at 21:26; Stop 04/18/17 at 21:27; Status DC Hydromorphone HCl 30 ml @ 0 mls/hr CONT PRN PRN IV PROTOCOL Last administered on 04/18/17 23:53; Start 04/18/17 at 22:30; Stop 04/21/17 at 09:03; Status DC Morphine Sulfate 2 mg STK-MED ONCE .ROUTE ; Start 04/18/17 at 22:47; Stop at 22:48; Status DC Ondansetron HCl (Zofran) 4 mg PRN Q6HRS PRN IV NAUSEA/VOMITING; Start at 23:00; Stop 04/19/17 at 06:00; Status DC Fentanyl Citrate (Fentanyl 2ml Vial) 25 mcg PRN Q5MIN PRN IV MILD PAIN; Start 04/18/17 at 23:00; Stop 04/19/17 at 01:45; Status DC Fentanyl Citrate (Fentanyl 2ml Vial) 50 mcg PRN Q5MIN PRN IV MODERATE PAIN; Start 04/18/17 at 23:00; Stop 04/19/17 at 01:45; Status DC Morphine Sulfate 1 mg PRN Q10MIN PRN IV SEVERE PAIN Last administered on 22:53; Start 04/18/17 at 23:00; Stop 04/19/17 at 01:45; Status DC Hydromorphone HCl (Dilaudid) 0.5 mg PRN Q10MIN PRN IV SEV PAIN, Second choice Last administered on 04/18/17 23:30; Start 04/18/17 at 23:00; Stop 04/19/17 at 01:45; Status DC Prochlorperazine Edisylate (Compazine) 5 mg PACU PRN PRN IV NAUSEA, MRX1 Last administered on 04/18/17 22:59; Start 04/18/17 at 23:00; Stop 04/19/17 at 01 :45; Status DC Albuterol/ Ipratropium (Duoneb) 3 ml 1X PACU PRN NEB SEE COMMENTS Last administered on 04/18/17 23:13; Start 04/18/17 at 23:15; Stop 04/19/17 at 23 :14; Status DC Hydralazine HCl (Apresoline) 10 mg 1X PACU PRN PO HYPERTENSION, SEE COMMENTS; Start 04/18/17 at 23:30; Stop 04/19/17 at 01:45; Status DC Labetalol HCl (Normodyne) 20 mg PRN Q2HR PRN IVP HYPERTENSION, SEE COMMENTS; Start 04/19/17 at 01:45; Stop 04/19/17 at 15:19; Status DC Acetaminophen (Tylenol) 650 mg PRN Q6HRS PRN PO FEVER; Start 04/19/17 at 15:30 Ondansetron HCl (Zofran) 4 mg PRN Q6HRS PRN IV NAUSEA/VOMITING Last administered on 04/27/17 10:01; Start 04/19/17 at 15:30 Morphine Sulfate 2 mg PRN Q2HR PRN IV PAIN; Start 04/19/17 at 15:30; Stop at 10:44; Status DC Tramadol HCl (Ultram) 50 mg PRN Q6HRS PRN PO PAIN; Start 04/19/17 at 15:30 Hydralazine HCl (Apresoline Inj) 10 mg PRN Q4HRS PRN IVP ELEVATED BP, SEE COMMENTS Last administered on 04/19/17 16:15; Start 04/19/17 at 15:30 Docusate Sodium (Colace) 100 mg PRN DAILY PRN PO CONSTIPATION; Start 04/19/17 at 15:30 Lorazepam (Ativan) 2 mg PRN Q4HRS PRN IV ANXIETY / AGITATION Last administered on 04/24/17 19:15; Start 04/19/17 at 15:30; Stop 04/25/17 at 14:58; Status DC Multivitamins 10 ml/Thiamine HCl 100 mg/Dextrose/ Lactated Ringer's 1,011 ml @ 100 mls/hr Q24H IV ; Start 04/19/17 at 16:00; Stop 04/19/17 at 16:00; Status DC Amino Acids/ Glycerin/ Electrolytes 1,000 ml @ 80 mls/hr [id number] IV Last administered on 04/26/17 05:35; Start 04/19/17 at 15:30; Stop 04/26/17 at 12 :24; Status DC Enoxaparin Sodium (Lovenox 40mg Syringe) 40 mg Q24H SQ Last administered on 13:36; Start 04/19/17 at 15:30 Famotidine (Pepcid Vial) 20 mg QHS IVP Last administered on 04/23/17 20:47; Start 04/19/17 at 21:00; Stop 04/24/17 at 15:06; Status DC Multivitamins 10 ml/Thiamine HCl 100 mg/Folic Acid 1 mg/Dextrose/ Lactated Ringer's 1,011.2 ml @ 100.02 mls/hr Q24H IV Last administered on 04/22/17 16 :55; Start 04/19/17 at 16:00; Stop 04/23/17 at 02:07; Status DC Sodium Phosphate 20 mmol/Dextrose 256.6667 ml @ 64.167 m... 1X ONCE IV Last administered on 04/20/17 09:03; Start 04/20/17 at 09:00; Stop 04/20/17 at 12 :59; Status DC Lorazepam (Ativan) 0.5 mg PRN 1X PRN IV ANXIETY / AGITATION Last administered on 04/21/17 02:00; Start 04/21/17 at 01:00; Stop 04/25/17 at 14:58; Status DC Diphenhydramine HCl (Benadryl) 25 mg PRN 1X PRN IVP INSOMNIA Last administered on 04/23/17 20:47; Start 04/21/17 at 01:00 Acetaminophen (Acetaminophen Supp) 650 mg PRN Q6HRS PRN OK MILD PAIN / TEMP; Start 04/21/17 at 01:00 Sodium Chloride 1,000 ml @ 75 mls/hr [id number] IV Last administered on 06:22; Start 04/21/17 at 09:15; Stop 04/24/17 at 16:57; Status DC Ciprofloxacin/ Dextrose 200 ml @ 200 mls/hr Q12HR IV Last administered on 10:02; Start 04/21/17 at 13:30 Lorazepam (Ativan) 1 mg PRN Q2HR PRN IV Agitation, Anxiety Last administered on 04/26/17 21:15; Start 04/21/17 at 15:30 Hydromorphone HCl (Dilaudid) 0.5 mg PRN Q4HRS PRN IVP SEVERE PAIN Last administered on 04/25/17 07:08; Start 04/22/17 at 11:45 Famotidine (Pepcid) 20 mg QHS PO Last administered on 04/26/17 21:15; Start 04/24/17 at 21:00 Lactobacillus Rhamnosus (Culturelle) 1 cap BID PO Last administered on 10:01; Start 04/24/17 at 21:00 Bisacodyl (Dulcolax Supp) 10 mg 1X ONCE OK Last administered on 04/25/17 12: 27; Start 04/25/17 at 11:00; Stop 04/25/17 at 11:01; Status DC Morphine Sulfate 2 mg PRN Q2HR PRN IV MODERATE PAIN Last administered on 00:06; Start 04/25/17 at 10:44 Info 1 each PRN DAILY PRN MC SEE COMMENTS Last administered on 04/27/17 11:32 ; Start 04/26/17 at 12:30 Sodium Chloride 90 meq/Potassium Chloride 50 meq/ Potassium Phosphate 13.6 mmol/ Magnesium Sulfate 10 meq/ Calcium Gluconate 10 meq/ Multivitamins 10 ml/Chromium / Copper/Manganese/ Seleni/Zn 1 ml/ Total Parenteral Nutrition/Amino Acids/ Dextrose/ Fat Emulsion Intravenous 1,512 ml @ 63 mls/hr TPN CONT IV Last administered on 04/26/17t 22:13; Start 04/26/17 at 22:00; Stop 04/27/17 at 21 :59 Info 1 each PRN DAILY PRN MC SEE COMMENTS; Start 04/26/17 at 14:15; Status UNV Nicotine (Nicoderm Cq 21mg) 1 patch PRN DAILY PRN TD SMOKING CESSATION; Start 04/26/17 at 16:00 Sodium Chloride 90 meq/Potassium Chloride 50 meq/ Potassium Phosphate 13.6 mmol/ Magnesium Sulfate 10 meq/ Calcium Gluconate 10 meq/ Multivitamins 10 ml/Chromium / Copper/Manganese/ Seleni/Zn 1 ml/ Total Parenteral Nutrition/Amino Acids/ Dextrose/ Fat Emulsion Intravenous 1,512 ml @ 63 mls/hr TPN CONT IV ; Start 04/27/17 at 22:00; Stop 04/28/17 at 21:59 Active Scripts Active Reported [Ranitidine] PO [Flomax] PO [Losartan] PO DAILY [Vitamin] 1 PO DAILY [Aspirin] Mg PO DAILY Vitals/I & O Vital Sign - Last 24 Hours 04/26/17 04/26/17 04/26/17 04/26/17 15:00 19:00 20:30 23:00 Temp 98.1 98.1 97.3 98.1 98.1 97.3 Pulse 57 61 60 Resp 18 18 18 B/P (MAP) 135/80 (98) 147/80 (102) 143/78 (99) Pulse Ox 97 98 96 O2 Delivery Room Air Room Air Room Air Room Air 04/27/17 04/27/17 04/27/17 04/27/17 03:00 07:00 08:00 10:01 Temp 97.6 97.8 97.6 97.8 Pulse 53 55 55 Resp 18 18 B/P (MAP) 126/72 (90) 142/78 (99) 142/78 Pulse Ox 97 96 O2 Delivery Room Air Room Air Room Air 04/27/17 11:00 Temp 97.5 97.5 Pulse 52 Resp 20 B/P (MAP) 155/82 (106) Pulse Ox 94 O2 Delivery Room Air Intake and Output 04/26/17 04/26/17 04/27/17 15:00 23:00 07:00 Intake Total 0 ml Output Total 70 ml Balance -70 ml ANA PABON MD Apr 27, 2017 14:47
[2017-04-27 15:00] VITALS: BP 161/86
[2017-04-27 19:00] VITALS: BP 123/82
[2017-04-27] MEDS: FAMOTIDINE 20 MG TABLET. PO SCH (21:11)
[2017-04-27] MEDS ORDERED: TOTAL PARENTERAL NUTRITION IV SCH ×10 (22:00)
[2017-04-27] MEDS ORDERED: DEXTROSE 70% IV SCH ×10 (22:00)
[2017-04-27] MEDS ORDERED: AMINO ACIDS IV SCH ×10 (22:00)
[2017-04-27] MEDS ORDERED: [UNRECOGNIZED DRUG - OTHER] IV SCH ×10 (22:00)
[2017-04-27 23:00] VITALS: BP 142/80
[2017-04-28 03:00] VITALS: BP 130/80
[2017-04-28 07:00] VITALS: BP 138/70
[2017-04-28 07:17] LABS: CALCIUM 8.2 mg/dL (8.5-10.1); CREATININE 0.8 mg/dL (0.7-1.3); GFR 93.5; MAGNESIUM 1.8 mg/dL (1.8-2.4); PHOSPHORUS 3.8 mg/dL (2.6-4.7); POTASSIUM 4.2 mmol/L (3.5-5.1)
--- NOTE | 2017-04-28 08:25 | PDOC ---
SURGICAL PROGRESS NOTE Subjective Feeling better, wants to eat. Passing stool mostly loose Vital Signs Vital Signs Date Time Temp Pulse Resp B/P (MAP) Pulse Ox O2 Delivery O2 Flow Rate FiO2 04/28/17 03:00 96.6 60 18 130/80 (97) 94 Room Air 96.6 I&O Intake and Output 04/28/17 07:00 Output Total 1685 ml Balance -1685 ml Output Urine Total 1500 ml Drainage Total 185 ml # Voids 1 PATIENT HAS A VERA: No General: Alert, Oriented X3, Cooperative, No acute distress Abdomen: Normal bowel sounds, Soft, No tenderness, Other (LIT with serous output ) Labs Laboratory Tests Test 04/27/17 05:50 04/28/17 06:51 White Blood Count 11.9 x10^3/uL (4.0-11.0) Red Blood Count 3.89 x10^6/uL (4.30-5.70) Hemoglobin 12.8 g/dL (13.0-17.5) Hematocrit 38.0 % (39.0-53.0) Mean Corpuscular Volume 98 fL (79-100) Mean Corpuscular Hemoglobin 33 pg (25-35) Mean Corpuscular Hemoglobin Concent 34 g/dL (31-37) Red Cell Distribution Width 12.9 % (11.5-14.5) Platelet Count 432 x10^3/uL (140-400) Neutrophils (%) (Auto) 70 % (31-73) Lymphocytes (%) (Auto) 19 % (24-48) Monocytes (%) (Auto) 7 % (0-9) Eosinophils (%) (Auto) 2 % (0-3) Basophils (%) (Auto) 1 % (0-3) Neutrophils # (Auto) 8.4 x10^3uL (1.8-7.7) Lymphocytes # (Auto) 2.3 x10^3/uL (1.0-4.8) Monocytes # (Auto) 0.9 x10^3/uL (0.0-1.1) Eosinophils # (Auto) 0.2 x10^3/uL (0.0-0.7) Basophils # (Auto) 0.1 x10^3/uL (0.0-0.2) Sodium Level 134 mmol/L (136-145) 132 mmol/L (136-145) Potassium Level 4.2 mmol/L (3.5-5.1) 4.2 mmol/L (3.5-5.1) Chloride Level 102 mmol/L (98-107) 102 mmol/L (98-107) Carbon Dioxide Level 25 mmol/L (21-32) 22 mmol/L (21-32) Anion Gap 7 (6-14) 8 (6-14) Blood Urea Nitrogen 12 mg/dL (8-26) 11 mg/dL (8-26) Creatinine 0.7 mg/dL (0.7-1.3) 0.8 mg/dL (0.7-1.3) Estimated GFR (Cockcroft-Gault) 109.1 93.5 BUN/Creatinine Ratio 17 (6-20) Glucose Level 133 mg/dL (70-99) 134 mg/dL (70-99) Calcium Level 8.1 mg/dL (8.5-10.1) 8.2 mg/dL (8.5-10.1) Phosphorus Level 3.0 mg/dL (2.6-4.7) 3.8 mg/dL (2.6-4.7) Magnesium Level 2.1 mg/dL (1.8-2.4) 1.8 mg/dL (1.8-2.4) Total Bilirubin 0.3 mg/dL (0.2-1.0) Aspartate Amino Transf (AST/SGOT) 30 U/L (15-37) Alanine Aminotransferase (ALT/SGPT) 43 U/L (16-63) Alkaline Phosphatase 50 U/L (46-116) Total Protein 6.1 g/dL (6.4-8.2) Albumin 2.4 g/dL (3.4-5.0) Albumin/Globulin Ratio 0.6 (1.0-1.7) Triglycerides Level 124 mg/dL (0-150) Laboratory Tests Test 04/28/17 06:51 Sodium Level 132 mmol/L (136-145) Potassium Level 4.2 mmol/L (3.5-5.1) Chloride Level 102 mmol/L (98-107) Carbon Dioxide Level 22 mmol/L (21-32) Anion Gap 8 (6-14) Blood Urea Nitrogen 11 mg/dL (8-26) Creatinine 0.8 mg/dL (0.7-1.3) Estimated GFR (Cockcroft-Gault) 93.5 Glucose Level 134 mg/dL (70-99) Calcium Level 8.2 mg/dL (8.5-10.1) Phosphorus Level 3.8 mg/dL (2.6-4.7) Magnesium Level 1.8 mg/dL (1.8-2.4) Problem List Problems Medical Problems: (1) ETOH abuse Status: Acute Assessment/Plan S/P appy having BM's now Adv diet. Problems: JUAN CARLOS SPRAGUE MD Apr 28, 2017 08:25
[2017-04-28] MEDS: LOSARTAN POTASSIUM 50 MG TABLET. PO SCH (08:49)
[2017-04-28] MEDS: CIPROFLOXACIN 400MG PREMIX 200 ML IV SCH ×2 (08:49→20:40)
[2017-04-28] MEDS: TAMSULOSIN 0.4 MG CAP.ER.24H. PO SCH (08:49)
[2017-04-28] MEDS: LACTOBACILLUS RHAMNOSUS GG 1 CAPSULE. PO SCH ×2 (08:49→20:41)
--- NOTE | 2017-04-28 10:28 | PDOC ---
PROGRESS NOTES Chief Complaint Chief Complaint acute abdominal pain with acute appendicitis s/p open appendectomy Persistent ileus in an alcoholic Metabolic enceph resolved ETOH abuse mild COPD, hyperlipidemia BPH hypophosphatemia mild malnutrition post op sbo vs ileus anemia post 1 u PRBC during sx History of Present Illness History of Present Illness seems a little bloated to me today than yesterday Pt thinks it is ok and feels fine and wants to go home On TPN, NPO per gS, thoughts of small bowel series if no better PLAN: Await GS rounds CPm for now Add PPI If wants to go home, needs to sign AMA Vitals Vitals Vital Signs Date Time Temp Pulse Resp B/P (MAP) Pulse Ox O2 Delivery O2 Flow Rate FiO2 04/28/17 08:49 58 138/70 04/28/17 07:00 97.5 18 98 Room Air 97.5 Physical Exam General: Alert, Oriented X3, Cooperative, No acute distress Heart: Regular rate, Normal S1, Normal S2 Lungs: Clear Abdomen: Normal bowel sounds, Soft, No tenderness, Other (LIT with serous output ) Extremities: No clubbing, No cyanosis Skin: No rashes, No breakdown Labs LABS Laboratory Tests Test 04/28/17 06:51 Sodium Level 132 mmol/L (136-145) Potassium Level 4.2 mmol/L (3.5-5.1) Chloride Level 102 mmol/L (98-107) Carbon Dioxide Level 22 mmol/L (21-32) Anion Gap 8 (6-14) Blood Urea Nitrogen 11 mg/dL (8-26) Creatinine 0.8 mg/dL (0.7-1.3) Estimated GFR (Cockcroft-Gault) 93.5 Glucose Level 134 mg/dL (70-99) Calcium Level 8.2 mg/dL (8.5-10.1) Phosphorus Level 3.8 mg/dL (2.6-4.7) Magnesium Level 1.8 mg/dL (1.8-2.4) Review of Systems Review of Systems hungry, limited rOS bec wants to go home Assessment and Plan Assessmemt and Plan Problems Medical Problems: (1) ETOH abuse Status: Acute Problems: Comment Review of Relevant I have reviewed the following items nika (where applicable) has been applied. Labs Laboratory Tests Test 04/27/17 05:50 04/28/17 06:51 White Blood Count 11.9 x10^3/uL (4.0-11.0) Red Blood Count 3.89 x10^6/uL (4.30-5.70) Hemoglobin 12.8 g/dL (13.0-17.5) Hematocrit 38.0 % (39.0-53.0) Mean Corpuscular Volume 98 fL (79-100) Mean Corpuscular Hemoglobin 33 pg (25-35) Mean Corpuscular Hemoglobin Concent 34 g/dL (31-37) Red Cell Distribution Width 12.9 % (11.5-14.5) Platelet Count 432 x10^3/uL (140-400) Neutrophils (%) (Auto) 70 % (31-73) Lymphocytes (%) (Auto) 19 % (24-48) Monocytes (%) (Auto) 7 % (0-9) Eosinophils (%) (Auto) 2 % (0-3) Basophils (%) (Auto) 1 % (0-3) Neutrophils # (Auto) 8.4 x10^3uL (1.8-7.7) Lymphocytes # (Auto) 2.3 x10^3/uL (1.0-4.8) Monocytes # (Auto) 0.9 x10^3/uL (0.0-1.1) Eosinophils # (Auto) 0.2 x10^3/uL (0.0-0.7) Basophils # (Auto) 0.1 x10^3/uL (0.0-0.2) Sodium Level 134 mmol/L (136-145) 132 mmol/L (136-145) Potassium Level 4.2 mmol/L (3.5-5.1) 4.2 mmol/L (3.5-5.1) Chloride Level 102 mmol/L (98-107) 102 mmol/L (98-107) Carbon Dioxide Level 25 mmol/L (21-32) 22 mmol/L (21-32) Anion Gap 7 (6-14) 8 (6-14) Blood Urea Nitrogen 12 mg/dL (8-26) 11 mg/dL (8-26) Creatinine 0.7 mg/dL (0.7-1.3) 0.8 mg/dL (0.7-1.3) Estimated GFR (Cockcroft-Gault) 109.1 93.5 BUN/Creatinine Ratio 17 (6-20) Glucose Level 133 mg/dL (70-99) 134 mg/dL (70-99) Calcium Level 8.1 mg/dL (8.5-10.1) 8.2 mg/dL (8.5-10.1) Phosphorus Level 3.0 mg/dL (2.6-4.7) 3.8 mg/dL (2.6-4.7) Magnesium Level 2.1 mg/dL (1.8-2.4) 1.8 mg/dL (1.8-2.4) Total Bilirubin 0.3 mg/dL (0.2-1.0) Aspartate Amino Transf (AST/SGOT) 30 U/L (15-37) Alanine Aminotransferase (ALT/SGPT) 43 U/L (16-63) Alkaline Phosphatase 50 U/L (46-116) Total Protein 6.1 g/dL (6.4-8.2) Albumin 2.4 g/dL (3.4-5.0) Albumin/Globulin Ratio 0.6 (1.0-1.7) Triglycerides Level 124 mg/dL (0-150) Laboratory Tests Test 04/28/17 06:51 Sodium Level 132 mmol/L (136-145) Potassium Level 4.2 mmol/L (3.5-5.1) Chloride Level 102 mmol/L (98-107) Carbon Dioxide Level 22 mmol/L (21-32) Anion Gap 8 (6-14) Blood Urea Nitrogen 11 mg/dL (8-26) Creatinine 0.8 mg/dL (0.7-1.3) Estimated GFR (Cockcroft-Gault) 93.5 Glucose Level 134 mg/dL (70-99) Calcium Level 8.2 mg/dL (8.5-10.1) Phosphorus Level 3.8 mg/dL (2.6-4.7) Magnesium Level 1.8 mg/dL (1.8-2.4) Medications Current Medications Sodium Chloride 1,000 ml @ 1,000 mls/hr 1X ONCE IV Last administered on 04/18t 17:14; Start 04/18/17 at 17:00; Stop 04/18/17 at 17:59; Status DC Metronidazole 100 ml @ 100 mls/hr Q8HRS IV Last administered on 04/28/17t 06: 00; Start 04/18/17 at 23:00 Piperacillin Sod/ Tazobactam Sod 3.375 gm/Dextrose 50 ml @ 100 mls/hr 1X ONCE IV ; Start 04/18/17 at 17:15; Stop 04/18/17 at 17:44; Status UNV Piperacillin Sod/ Tazobactam Sod (Zosyn) 3.375 gm 1X ONCE IVP Last administered on 04/18/17t 17:41; Start 04/18/17 at 17:15; Stop 04/18/17 at 17 :16; Status DC Metronidazole 100 ml @ 100 mls/hr 1X ONCE IV ; Start 04/18/17 at 17:15; Stop 04/18/17 at 18:14; Status DC Sevoflurane (Ultane) 60 ml STK-MED ONCE IH ; Start 04/18/17 at 17:36; Stop at 17:37; Status DC Fentanyl Citrate (Fentanyl 2ml Vial) 100 mcg STK-MED ONCE .ROUTE ; Start at 17:36; Stop 04/18/17 at 17:37; Status DC Neostigmine Methylsulfate (Bloxiverz) 10 mg STK-MED ONCE .ROUTE ; Start at 17:36; Stop 04/18/17 at 17:37; Status DC Succinylcholine Chloride (Anectine) 200 mg STK-MED ONCE .ROUTE ; Start at 17:36; Stop 04/18/17 at 17:37; Status DC Glycopyrrolate (Robinul) 1 mg STK-MED ONCE .ROUTE ; Start 04/18/17 at 17:37; Stop 04/18/17 at 17:38; Status DC Rocuronium [place] (Zemuron) 50 mg STK-MED ONCE .ROUTE ; Start 04/18/17 at 17: 37; Stop 04/18/17 at 17:38; Status DC Propofol 20 ml @ As Directed STK-MED ONCE IV ; Start 04/18/17 at 17:37; Stop 04/18/17 at 17:38; Status DC Lidocaine HCl (Lidocaine Pf 2% Vial) 5 ml STK-MED ONCE .ROUTE ; Start 04/18/17 at 17:37; Stop 04/18/17 at 17:38; Status DC Dexamethasone Sodium Phosphate (Decadron) 20 mg STK-MED ONCE .ROUTE ; Start at 17:37; Stop 04/18/17 at 17:38; Status DC Ondansetron HCl (Zofran) 4 mg STK-MED ONCE .ROUTE ; Start 04/18/17 at 17:37; Stop 04/18/17 at 17:38; Status DC Tamsulosin HCl (Flomax) 0.4 mg DAILY PO Last administered on 04/28/17 08:49; Start 04/19/17 at 09:00 Losartan Potassium (Cozaar) 50 mg DAILY PO Last administered on 04/28/17 08: 49; Start 04/19/17 at 09:00 Multivitamins 10 ml/Thiamine HCl 100 mg/Ringer's Solution 1,011 ml @ 250 mls/ hr 1X ONCE IV Last administered on 04/19/17 01:24; Start 04/18/17 at 19:00 ; Stop 04/18/17 at 23:02; Status DC Ondansetron HCl (Zofran) 4 mg PRN Q6HRS PRN IV NAUSEA/VOMITING; Start at 19:00; Stop 04/18/17 at 22:00; Status DC Fentanyl Citrate (Fentanyl 2ml Vial) 25 mcg PRN Q5MIN PRN IV MILD PAIN; Start 04/18/17 at 19:00; Stop 04/18/17 at 22:00; Status DC Fentanyl Citrate (Fentanyl 2ml Vial) 50 mcg PRN Q5MIN PRN IV MODERATE PAIN; Start 04/18/17 at 19:00; Stop 04/18/17 at 22:00; Status DC Morphine Sulfate 1 mg PRN Q10MIN PRN IV SEVERE PAIN; Start 04/18/17 at 19:00; Stop 04/18/17 at 22:00; Status DC Ringer's Solution 1,000 ml @ 30 mls/hr Q24H IV ; Start 04/18/17 at 18:50; Stop 04/19/17 at 06:49; Status DC Lidocaine HCl (Xylocaine-Mpf 1% Vial) 2 ml 1X PRN PRN ID IV START; Start 04/18 at 19:00; Stop 04/18/17 at 22:00; Status DC Hydromorphone HCl (Dilaudid) 0.5 mg PRN Q10MIN PRN IV SEV PAIN, Second choice; Start 04/18/17 at 19:00; Stop 04/18/17 at 22:00; Status DC Prochlorperazine Edisylate (Compazine) 5 mg PACU PRN PRN IV NAUSEA, MRX1; Start 04/18/17 at 19:00; Stop 04/18/17 at 22:00; Status DC Bupivacaine HCl/ Epinephrine Bitart (Sensorcain-Mpf Epi 0.5%-1:[id number]) 30 ml STK -MED ONCE .ROUTE ; Start 04/18/17 at 19:16; Stop 04/18/17 at 19:17; Status DC Fentanyl Citrate (Fentanyl 2ml Vial) 100 mcg STK-MED ONCE .ROUTE ; Start at 19:49; Stop 04/18/17 at 19:50; Status DC Phenylephrine HCl 1 mg STK-MED ONCE IV ; Start 04/18/17 at 20:04; Stop at 20:05; Status DC Cellulose 1 each STK-MED ONCE .ROUTE Last administered on 04/18/17t 21:07; Start 04/18/17 at 20:35; Stop 04/18/17 at 20:36; Status DC Cellulose 1 each STK-MED ONCE .ROUTE ; Start 04/18/17 at 21:26; Stop 04/18/17 at 21:27; Status DC Hydromorphone HCl 30 ml @ 0 mls/hr CONT PRN PRN IV PROTOCOL Last administered on 04/18/17t 23:53; Start 04/18/17 at 22:30; Stop 04/21/17 at 09:03; Status DC Morphine Sulfate 2 mg STK-MED ONCE .ROUTE ; Start 04/18/17 at 22:47; Stop at 22:48; Status DC Ondansetron HCl (Zofran) 4 mg PRN Q6HRS PRN IV NAUSEA/VOMITING; Start at 23:00; Stop 04/19/17 at 06:00; Status DC Fentanyl Citrate (Fentanyl 2ml Vial) 25 mcg PRN Q5MIN PRN IV MILD PAIN; Start 04/18/17 at 23:00; Stop 04/19/17 at 01:45; Status DC Fentanyl Citrate (Fentanyl 2ml Vial) 50 mcg PRN Q5MIN PRN IV MODERATE PAIN; Start 04/18/17 at 23:00; Stop 04/19/17 at 01:45; Status DC Morphine Sulfate 1 mg PRN Q10MIN PRN IV SEVERE PAIN Last administered on 22:53; Start 04/18/17 at 23:00; Stop 04/19/17 at 01:45; Status DC Hydromorphone HCl (Dilaudid) 0.5 mg PRN Q10MIN PRN IV SEV PAIN, Second choice Last administered on 04/18/17 23:30; Start 04/18/17 at 23:00; Stop 04/19/17 at 01:45; Status DC Prochlorperazine Edisylate (Compazine) 5 mg PACU PRN PRN IV NAUSEA, MRX1 Last administered on 04/18/17 22:59; Start 04/18/17 at 23:00; Stop 04/19/17 at 01 :45; Status DC Albuterol/ Ipratropium (Duoneb) 3 ml 1X PACU PRN NEB SEE COMMENTS Last administered on 04/18/17 23:13; Start 04/18/17 at 23:15; Stop 04/19/17 at 23 :14; Status DC Hydralazine HCl (Apresoline) 10 mg 1X PACU PRN PO HYPERTENSION, SEE COMMENTS; Start 04/18/17 at 23:30; Stop 04/19/17 at 01:45; Status DC Labetalol HCl (Normodyne) 20 mg PRN Q2HR PRN IVP HYPERTENSION, SEE COMMENTS; Start 04/19/17 at 01:45; Stop 04/19/17 at 15:19; Status DC Acetaminophen (Tylenol) 650 mg PRN Q6HRS PRN PO FEVER; Start 04/19/17 at 15:30 Ondansetron HCl (Zofran) 4 mg PRN Q6HRS PRN IV NAUSEA/VOMITING Last administered on 04/27/17 10:01; Start 04/19/17 at 15:30 Morphine Sulfate 2 mg PRN Q2HR PRN IV PAIN; Start 04/19/17 at 15:30; Stop at 10:44; Status DC Tramadol HCl (Ultram) 50 mg PRN Q6HRS PRN PO PAIN; Start 04/19/17 at 15:30 Hydralazine HCl (Apresoline Inj) 10 mg PRN Q4HRS PRN IVP ELEVATED BP, SEE COMMENTS Last administered on 04/19/17 16:15; Start 04/19/17 at 15:30 Docusate Sodium (Colace) 100 mg PRN DAILY PRN PO CONSTIPATION; Start 04/19/17 at 15:30 Lorazepam (Ativan) 2 mg PRN Q4HRS PRN IV ANXIETY / AGITATION Last administered on 04/24/17 19:15; Start 04/19/17 at 15:30; Stop 04/25/17 at 14:58; Status DC Multivitamins 10 ml/Thiamine HCl 100 mg/Dextrose/ Lactated Ringer's 1,011 ml @ 100 mls/hr Q24H IV ; Start 04/19/17 at 16:00; Stop 04/19/17 at 16:00; Status DC Amino Acids/ Glycerin/ Electrolytes 1,000 ml @ 80 mls/hr [id number] IV Last administered on 04/26/17 05:35; Start 04/19/17 at 15:30; Stop 04/26/17 at 12 :24; Status DC Enoxaparin Sodium (Lovenox 40mg Syringe) 40 mg Q24H SQ Last administered on 13:36; Start 04/19/17 at 15:30; Stop 04/28/17 at 07:52; Status DC Famotidine (Pepcid Vial) 20 mg QHS IVP Last administered on 04/23/17 20:47; Start 04/19/17 at 21:00; Stop 04/24/17 at 15:06; Status DC Multivitamins 10 ml/Thiamine HCl 100 mg/Folic Acid 1 mg/Dextrose/ Lactated Ringer's 1,011.2 ml @ 100.02 mls/hr Q24H IV Last administered on 04/22/17 16 :55; Start 04/19/17 at 16:00; Stop 04/23/17 at 02:07; Status DC Sodium Phosphate 20 mmol/Dextrose 256.6667 ml @ 64.167 m... 1X ONCE IV Last administered on 04/20/17 09:03; Start 04/20/17 at 09:00; Stop 04/20/17 at 12 :59; Status DC Lorazepam (Ativan) 0.5 mg PRN 1X PRN IV ANXIETY / AGITATION Last administered on 04/21/17 02:00; Start 04/21/17 at 01:00; Stop 04/25/17 at 14:58; Status DC Diphenhydramine HCl (Benadryl) 25 mg PRN 1X PRN IVP INSOMNIA Last administered on 04/23/17 20:47; Start 04/21/17 at 01:00 Acetaminophen (Acetaminophen Supp) 650 mg PRN Q6HRS PRN IA MILD PAIN / TEMP; Start 04/21/17 at 01:00 Sodium Chloride 1,000 ml @ 75 mls/hr [id number] IV Last administered on 06:22; Start 04/21/17 at 09:15; Stop 04/24/17 at 16:57; Status DC Ciprofloxacin/ Dextrose 200 ml @ 200 mls/hr Q12HR IV Last administered on 08:49; Start 04/21/17 at 13:30 Lorazepam (Ativan) 1 mg PRN Q2HR PRN IV Agitation, Anxiety Last administered on 04/28/17 02:30; Start 04/21/17 at 15:30 Hydromorphone HCl (Dilaudid) 0.5 mg PRN Q4HRS PRN IVP SEVERE PAIN Last administered on 04/25/17 07:08; Start 04/22/17 at 11:45 Famotidine (Pepcid) 20 mg QHS PO Last administered on 04/27/17 21:11; Start 04/24/17 at 21:00; Stop 04/28/17 at 07:52; Status DC Lactobacillus Rhamnosus (Culturelle) 1 cap BID PO Last administered on 08:49; Start 04/24/17 at 21:00 Bisacodyl (Dulcolax Supp) 10 mg 1X ONCE IA Last administered on 04/25/17 12: 27; Start 04/25/17 at 11:00; Stop 04/25/17 at 11:01; Status DC Morphine Sulfate 2 mg PRN Q2HR PRN IV MODERATE PAIN Last administered on 00:06; Start 04/25/17 at 10:44 Info 1 each PRN DAILY PRN MC SEE COMMENTS Last administered on 04/27/17 11:32 ; Start 04/26/17 at 12:30 Sodium Chloride 90 meq/Potassium Chloride 50 meq/ Potassium Phosphate 13.6 mmol/ Magnesium Sulfate 10 meq/ Calcium Gluconate 10 meq/ Multivitamins 10 ml/Chromium / Copper/Manganese/ Seleni/Zn 1 ml/ Total Parenteral Nutrition/Amino Acids/ Dextrose/ Fat Emulsion Intravenous 1,512 ml @ 63 mls/hr TPN CONT IV Last administered on 04/26/17 22:13; Start 04/26/17 at 22:00; Stop 04/27/17 at 21 :59; Status DC Info 1 each PRN DAILY PRN MC SEE COMMENTS; Start 04/26/17 at 14:15; Status UNV Nicotine (Nicoderm Cq 21mg) 1 patch PRN DAILY PRN TD SMOKING CESSATION; Start 04/26/17 at 16:00 Sodium Chloride 90 meq/Potassium Chloride 50 meq/ Potassium Phosphate 13.6 mmol/ Magnesium Sulfate 10 meq/ Calcium Gluconate 10 meq/ Multivitamins 10 ml/Chromium / Copper/Manganese/ Seleni/Zn 1 ml/ Total Parenteral Nutrition/Amino Acids/ Dextrose/ Fat Emulsion Intravenous 1,512 ml @ 63 mls/hr TPN CONT IV Last administered on 04/27/17 22:50; Start 04/27/17 at 22:00; Stop 04/28/17 at 21 :59 Famotidine (Pepcid Vial) 20 mg QHS IVP ; Start 04/28/17 at 21:00 Active Scripts Active Reported [Ranitidine] PO [Flomax] PO [Losartan] PO DAILY [Vitamin] 1 PO DAILY [Aspirin] Mg PO DAILY Vitals/I & O Vital Sign - Last 24 Hours 04/27/17 04/27/17 04/27/17 04/27/17 11:00 15:00 19:00 20:00 Temp 97.5 97.7 98.4 97.5 97.7 98.4 Pulse 52 63 72 Resp 20 20 20 B/P (MAP) 155/82 (106) 161/86 (111) 123/82 (96) Pulse Ox 94 96 96 O2 Delivery Room Air Room Air Room Air Room Air 04/27/17 04/28/17 04/28/17 04/28/17 23:00 03:00 07:00 08:49 Temp 97.5 96.6 97.5 97.5 96.6 97.5 Pulse 66 60 58 58 Resp 20 18 18 B/P (MAP) 142/80 (100) 130/80 (97) 138/70 (92) 138/70 Pulse Ox 97 94 98 O2 Delivery Room Air Room Air Room Air Intake and Output 04/27/17 04/27/17 04/28/17 15:00 23:00 07:00 Output Total 65 ml 1620 ml Balance -65 ml -1620 ml KALYN LOPEZ MD Apr 28, 2017 10:28
[2017-04-28 11:00] VITALS: BP 144/78
[2017-04-28] MEDS: TPN PER PHARMACY MC PRN (12:29)
[2017-04-28 15:00] VITALS: BP 158/88
[2017-04-28 19:00] VITALS: BP 162/88
[2017-04-28] MEDS: ONDANSETRON PF 4 MG/2 ML VIAL. IV PRN (19:19)
[2017-04-28] MEDS: FAMOTIDINE 20 MG/2 ML VIAL IVP SCH (20:40)
[2017-04-28] MEDS ORDERED: [UNRECOGNIZED DRUG - OTHER] IV SCH ×10 (22:00)
[2017-04-28] MEDS ORDERED: TOTAL PARENTERAL NUTRITION IV SCH ×10 (22:00)
[2017-04-28] MEDS ORDERED: AMINO ACIDS IV SCH ×10 (22:00)
[2017-04-28] MEDS ORDERED: DEXTROSE 70% IV SCH ×10 (22:00)
[2017-04-28 23:00] VITALS: BP 128/81
[2017-04-29 03:00] VITALS: BP 122/76
[2017-04-29 06:15] LABS: CALCIUM 8.2 mg/dL (8.5-10.1); CREATININE 0.8 mg/dL (0.7-1.3); GFR 93.5; MAGNESIUM 1.7 mg/dL (1.8-2.4); PHOSPHORUS 3.6 mg/dL (2.6-4.7); POTASSIUM 4.2 mmol/L (3.5-5.1)
[2017-04-29 07:00] VITALS: BP 126/75
[2017-04-29] MEDS: LACTOBACILLUS RHAMNOSUS GG 1 CAPSULE. PO SCH ×2 (09:29→20:55)
[2017-04-29] MEDS: LOSARTAN POTASSIUM 50 MG TABLET. PO SCH (09:29)
[2017-04-29] MEDS: CIPROFLOXACIN 400MG PREMIX 200 ML IV SCH (09:29)
[2017-04-29] MEDS: TAMSULOSIN 0.4 MG CAP.ER.24H. PO SCH (09:29)
[2017-04-29 11:00] VITALS: BP 137/82
--- NOTE | 2017-04-29 11:39 | PDOC ---
PROGRESS NOTES Chief Complaint Chief Complaint acute abdominal pain with acute appendicitis s/p open appendectomy Persistent ileus in an alcoholic Metabolic enceph resolved ETOH abuse mild COPD, hyperlipidemia BPH hypophosphatemia mild malnutrition post op sbo vs ileus anemia post 1 u PRBC during sx History of Present Illness History of Present Illness I did not awaken today HE threatened to leave AMA after my visit yesterday bec he wants to eat solids - he was just started on liq diet by GS yesterday TPN running clypd ok PLAN: Diet per gS COnt tPN for now Admbulate ad colby - no pT needs Wants to go home soon WOF etoh withdrawal sxs dw RN aracelis Vitals Vitals Vital Signs Date Time Temp Pulse Resp B/P (MAP) Pulse Ox O2 Delivery O2 Flow Rate FiO2 04/29/17 11:00 97.7 61 18 137/82 (100) 97 Room Air 97.7 Physical Exam General: Alert, Oriented X3, Cooperative, No acute distress Heart: Regular rate, Normal S1, Normal S2 Lungs: Clear Abdomen: Normal bowel sounds, Soft, No tenderness, Other (LIT with serous output ) Extremities: No clubbing, No cyanosis Skin: No rashes, No breakdown Labs LABS Laboratory Tests Test 04/29/17 05:40 Sodium Level 133 mmol/L (136-145) Potassium Level 4.2 mmol/L (3.5-5.1) Chloride Level 102 mmol/L (98-107) Carbon Dioxide Level 26 mmol/L (21-32) Anion Gap 5 (6-14) Blood Urea Nitrogen 11 mg/dL (8-26) Creatinine 0.8 mg/dL (0.7-1.3) Estimated GFR (Cockcroft-Gault) 93.5 Glucose Level 122 mg/dL (70-99) Calcium Level 8.2 mg/dL (8.5-10.1) Phosphorus Level 3.6 mg/dL (2.6-4.7) Magnesium Level 1.7 mg/dL (1.8-2.4) Review of Systems Review of Systems asleep Assessment and Plan Assessmemt and Plan Problems Medical Problems: (1) ETOH abuse Status: Acute Problems: Comment Review of Relevant I have reviewed the following items nika (where applicable) has been applied. Labs Laboratory Tests Test 04/28/17 06:51 04/29/17 05:40 Sodium Level 132 mmol/L (136-145) 133 mmol/L (136-145) Potassium Level 4.2 mmol/L (3.5-5.1) 4.2 mmol/L (3.5-5.1) Chloride Level 102 mmol/L (98-107) 102 mmol/L (98-107) Carbon Dioxide Level 22 mmol/L (21-32) 26 mmol/L (21-32) Anion Gap 8 (6-14) 5 (6-14) Blood Urea Nitrogen 11 mg/dL (8-26) 11 mg/dL (8-26) Creatinine 0.8 mg/dL (0.7-1.3) 0.8 mg/dL (0.7-1.3) Estimated GFR (Cockcroft-Gault) 93.5 93.5 Glucose Level 134 mg/dL (70-99) 122 mg/dL (70-99) Calcium Level 8.2 mg/dL (8.5-10.1) 8.2 mg/dL (8.5-10.1) Phosphorus Level 3.8 mg/dL (2.6-4.7) 3.6 mg/dL (2.6-4.7) Magnesium Level 1.8 mg/dL (1.8-2.4) 1.7 mg/dL (1.8-2.4) Laboratory Tests Test 04/29/17 05:40 Sodium Level 133 mmol/L (136-145) Potassium Level 4.2 mmol/L (3.5-5.1) Chloride Level 102 mmol/L (98-107) Carbon Dioxide Level 26 mmol/L (21-32) Anion Gap 5 (6-14) Blood Urea Nitrogen 11 mg/dL (8-26) Creatinine 0.8 mg/dL (0.7-1.3) Estimated GFR (Cockcroft-Gault) 93.5 Glucose Level 122 mg/dL (70-99) Calcium Level 8.2 mg/dL (8.5-10.1) Phosphorus Level 3.6 mg/dL (2.6-4.7) Magnesium Level 1.7 mg/dL (1.8-2.4) Medications Current Medications Sodium Chloride 1,000 ml @ 1,000 mls/hr 1X ONCE IV Last administered on 04/18t 17:14; Start 04/18/17 at 17:00; Stop 04/18/17 at 17:59; Status DC Metronidazole 100 ml @ 100 mls/hr Q8HRS IV Last administered on 04/29/17t 05: 39; Start 04/18/17 at 23:00 Piperacillin Sod/ Tazobactam Sod 3.375 gm/Dextrose 50 ml @ 100 mls/hr 1X ONCE IV ; Start 04/18/17 at 17:15; Stop 04/18/17 at 17:44; Status UNV Piperacillin Sod/ Tazobactam Sod (Zosyn) 3.375 gm 1X ONCE IVP Last administered on 04/18/17t 17:41; Start 04/18/17 at 17:15; Stop 04/18/17 at 17 :16; Status DC Metronidazole 100 ml @ 100 mls/hr 1X ONCE IV ; Start 04/18/17 at 17:15; Stop 04/18/17 at 18:14; Status DC Sevoflurane (Ultane) 60 ml STK-MED ONCE IH ; Start 04/18/17 at 17:36; Stop at 17:37; Status DC Fentanyl Citrate (Fentanyl 2ml Vial) 100 mcg STK-MED ONCE .ROUTE ; Start at 17:36; Stop 04/18/17 at 17:37; Status DC Neostigmine Methylsulfate (Bloxiverz) 10 mg STK-MED ONCE .ROUTE ; Start at 17:36; Stop 04/18/17 at 17:37; Status DC Succinylcholine Chloride (Anectine) 200 mg STK-MED ONCE .ROUTE ; Start at 17:36; Stop 04/18/17 at 17:37; Status DC Glycopyrrolate (Robinul) 1 mg STK-MED ONCE .ROUTE ; Start 04/18/17 at 17:37; Stop 04/18/17 at 17:38; Status DC Rocuronium [place] (Zemuron) 50 mg STK-MED ONCE .ROUTE ; Start 04/18/17 at 17: 37; Stop 04/18/17 at 17:38; Status DC Propofol 20 ml @ As Directed STK-MED ONCE IV ; Start 04/18/17 at 17:37; Stop 04/18/17 at 17:38; Status DC Lidocaine HCl (Lidocaine Pf 2% Vial) 5 ml STK-MED ONCE .ROUTE ; Start 04/18/17 at 17:37; Stop 04/18/17 at 17:38; Status DC Dexamethasone Sodium Phosphate (Decadron) 20 mg STK-MED ONCE .ROUTE ; Start at 17:37; Stop 04/18/17 at 17:38; Status DC Ondansetron HCl (Zofran) 4 mg STK-MED ONCE .ROUTE ; Start 04/18/17 at 17:37; Stop 04/18/17 at 17:38; Status DC Tamsulosin HCl (Flomax) 0.4 mg DAILY PO Last administered on 04/29/17 09:29; Start 04/19/17 at 09:00 Losartan Potassium (Cozaar) 50 mg DAILY PO Last administered on 04/29/17 09: 29; Start 04/19/17 at 09:00 Multivitamins 10 ml/Thiamine HCl 100 mg/Ringer's Solution 1,011 ml @ 250 mls/ hr 1X ONCE IV Last administered on 04/19/17 01:24; Start 04/18/17 at 19:00 ; Stop 04/18/17 at 23:02; Status DC Ondansetron HCl (Zofran) 4 mg PRN Q6HRS PRN IV NAUSEA/VOMITING; Start at 19:00; Stop 04/18/17 at 22:00; Status DC Fentanyl Citrate (Fentanyl 2ml Vial) 25 mcg PRN Q5MIN PRN IV MILD PAIN; Start 04/18/17 at 19:00; Stop 04/18/17 at 22:00; Status DC Fentanyl Citrate (Fentanyl 2ml Vial) 50 mcg PRN Q5MIN PRN IV MODERATE PAIN; Start 04/18/17 at 19:00; Stop 04/18/17 at 22:00; Status DC Morphine Sulfate 1 mg PRN Q10MIN PRN IV SEVERE PAIN; Start 04/18/17 at 19:00; Stop 04/18/17 at 22:00; Status DC Ringer's Solution 1,000 ml @ 30 mls/hr Q24H IV ; Start 04/18/17 at 18:50; Stop 04/19/17 at 06:49; Status DC Lidocaine HCl (Xylocaine-Mpf 1% Vial) 2 ml 1X PRN PRN ID IV START; Start 04/18 at 19:00; Stop 04/18/17 at 22:00; Status DC Hydromorphone HCl (Dilaudid) 0.5 mg PRN Q10MIN PRN IV SEV PAIN, Second choice; Start 04/18/17 at 19:00; Stop 04/18/17 at 22:00; Status DC Prochlorperazine Edisylate (Compazine) 5 mg PACU PRN PRN IV NAUSEA, MRX1; Start 04/18/17 at 19:00; Stop 04/18/17 at 22:00; Status DC Bupivacaine HCl/ Epinephrine Bitart (Sensorcain-Mpf Epi 0.5%-[id number]) 30 ml STK -MED ONCE .ROUTE ; Start 04/18/17 at 19:16; Stop 04/18/17 at 19:17; Status DC Fentanyl Citrate (Fentanyl 2ml Vial) 100 mcg STK-MED ONCE .ROUTE ; Start at 19:49; Stop 04/18/17 at 19:50; Status DC Phenylephrine HCl 1 mg STK-MED ONCE IV ; Start 04/18/17 at 20:04; Stop at 20:05; Status DC Cellulose 1 each STK-MED ONCE .ROUTE Last administered on 04/18/17t 21:07; Start 04/18/17 at 20:35; Stop 04/18/17 at 20:36; Status DC Cellulose 1 each STK-MED ONCE .ROUTE ; Start 04/18/17 at 21:26; Stop 04/18/17 at 21:27; Status DC Hydromorphone HCl 30 ml @ 0 mls/hr CONT PRN PRN IV PROTOCOL Last administered on 04/18/17t 23:53; Start 04/18/17 at 22:30; Stop 04/21/17 at 09:03; Status DC Morphine Sulfate 2 mg STK-MED ONCE .ROUTE ; Start 04/18/17 at 22:47; Stop at 22:48; Status DC Ondansetron HCl (Zofran) 4 mg PRN Q6HRS PRN IV NAUSEA/VOMITING; Start at 23:00; Stop 04/19/17 at 06:00; Status DC Fentanyl Citrate (Fentanyl 2ml Vial) 25 mcg PRN Q5MIN PRN IV MILD PAIN; Start 04/18/17 at 23:00; Stop 04/19/17 at 01:45; Status DC Fentanyl Citrate (Fentanyl 2ml Vial) 50 mcg PRN Q5MIN PRN IV MODERATE PAIN; Start 04/18/17 at 23:00; Stop 04/19/17 at 01:45; Status DC Morphine Sulfate 1 mg PRN Q10MIN PRN IV SEVERE PAIN Last administered on 22:53; Start 04/18/17 at 23:00; Stop 04/19/17 at 01:45; Status DC Hydromorphone HCl (Dilaudid) 0.5 mg PRN Q10MIN PRN IV SEV PAIN, Second choice Last administered on 04/18/17 23:30; Start 04/18/17 at 23:00; Stop 04/19/17 at 01:45; Status DC Prochlorperazine Edisylate (Compazine) 5 mg PACU PRN PRN IV NAUSEA, MRX1 Last administered on 04/18/17 22:59; Start 04/18/17 at 23:00; Stop 04/19/17 at 01 :45; Status DC Albuterol/ Ipratropium (Duoneb) 3 ml 1X PACU PRN NEB SEE COMMENTS Last administered on 04/18/17 23:13; Start 04/18/17 at 23:15; Stop 04/19/17 at 23 :14; Status DC Hydralazine HCl (Apresoline) 10 mg 1X PACU PRN PO HYPERTENSION, SEE COMMENTS; Start 04/18/17 at 23:30; Stop 04/19/17 at 01:45; Status DC Labetalol HCl (Normodyne) 20 mg PRN Q2HR PRN IVP HYPERTENSION, SEE COMMENTS; Start 04/19/17 at 01:45; Stop 04/19/17 at 15:19; Status DC Acetaminophen (Tylenol) 650 mg PRN Q6HRS PRN PO FEVER; Start 04/19/17 at 15:30 Ondansetron HCl (Zofran) 4 mg PRN Q6HRS PRN IV NAUSEA/VOMITING Last administered on 04/28/17 19:19; Start 04/19/17 at 15:30 Morphine Sulfate 2 mg PRN Q2HR PRN IV PAIN; Start 04/19/17 at 15:30; Stop at 10:44; Status DC Tramadol HCl (Ultram) 50 mg PRN Q6HRS PRN PO PAIN; Start 04/19/17 at 15:30 Hydralazine HCl (Apresoline Inj) 10 mg PRN Q4HRS PRN IVP ELEVATED BP, SEE COMMENTS Last administered on 04/19/17 16:15; Start 04/19/17 at 15:30 Docusate Sodium (Colace) 100 mg PRN DAILY PRN PO CONSTIPATION; Start 04/19/17 at 15:30 Lorazepam (Ativan) 2 mg PRN Q4HRS PRN IV ANXIETY / AGITATION Last administered on 04/24/17 19:15; Start 04/19/17 at 15:30; Stop 04/25/17 at 14:58; Status DC Multivitamins 10 ml/Thiamine HCl 100 mg/Dextrose/ Lactated Ringer's 1,011 ml @ 100 mls/hr Q24H IV ; Start 04/19/17 at 16:00; Stop 04/19/17 at 16:00; Status DC Amino Acids/ Glycerin/ Electrolytes 1,000 ml @ 80 mls/hr [id number] IV Last administered on 04/26/17 05:35; Start 04/19/17 at 15:30; Stop 04/26/17 at 12 :24; Status DC Enoxaparin Sodium (Lovenox 40mg Syringe) 40 mg Q24H SQ Last administered on 13:36; Start 04/19/17 at 15:30; Stop 04/28/17 at 07:52; Status DC Famotidine (Pepcid Vial) 20 mg QHS IVP Last administered on 04/23/17 20:47; Start 04/19/17 at 21:00; Stop 04/24/17 at 15:06; Status DC Multivitamins 10 ml/Thiamine HCl 100 mg/Folic Acid 1 mg/Dextrose/ Lactated Ringer's 1,011.2 ml @ 100.02 mls/hr Q24H IV Last administered on 04/22/17 16 :55; Start 04/19/17 at 16:00; Stop 04/23/17 at 02:07; Status DC Sodium Phosphate 20 mmol/Dextrose 256.6667 ml @ 64.167 m... 1X ONCE IV Last administered on 04/20/17 09:03; Start 04/20/17 at 09:00; Stop 04/20/17 at 12 :59; Status DC Lorazepam (Ativan) 0.5 mg PRN 1X PRN IV ANXIETY / AGITATION Last administered on 04/21/17 02:00; Start 04/21/17 at 01:00; Stop 04/25/17 at 14:58; Status DC Diphenhydramine HCl (Benadryl) 25 mg PRN 1X PRN IVP INSOMNIA Last administered on 04/23/17 20:47; Start 04/21/17 at 01:00 Acetaminophen (Acetaminophen Supp) 650 mg PRN Q6HRS PRN VA MILD PAIN / TEMP; Start 04/21/17 at 01:00 Sodium Chloride 1,000 ml @ 75 mls/hr [id number] IV Last administered on 06:22; Start 04/21/17 at 09:15; Stop 04/24/17 at 16:57; Status DC Ciprofloxacin/ Dextrose 200 ml @ 200 mls/hr Q12HR IV Last administered on 09:29; Start 04/21/17 at 13:30 Lorazepam (Ativan) 1 mg PRN Q2HR PRN IV Agitation, Anxiety Last administered on 04/28/17 20:40; Start 04/21/17 at 15:30 Hydromorphone HCl (Dilaudid) 0.5 mg PRN Q4HRS PRN IVP SEVERE PAIN Last administered on 04/25/17 07:08; Start 04/22/17 at 11:45 Famotidine (Pepcid) 20 mg QHS PO Last administered on 04/27/17 21:11; Start 04/24/17 at 21:00; Stop 04/28/17 at 07:52; Status DC Lactobacillus Rhamnosus (Culturelle) 1 cap BID PO Last administered on 09:29; Start 04/24/17 at 21:00 Bisacodyl (Dulcolax Supp) 10 mg 1X ONCE VA Last administered on 04/25/17 12: 27; Start 04/25/17 at 11:00; Stop 04/25/17 at 11:01; Status DC Morphine Sulfate 2 mg PRN Q2HR PRN IV MODERATE PAIN Last administered on 00:06; Start 04/25/17 at 10:44 Info 1 each PRN DAILY PRN MC SEE COMMENTS Last administered on 04/28/17 12:29 ; Start 04/26/17 at 12:30 Sodium Chloride 90 meq/Potassium Chloride 50 meq/ Potassium Phosphate 13.6 mmol/ Magnesium Sulfate 10 meq/ Calcium Gluconate 10 meq/ Multivitamins 10 ml/Chromium / Copper/Manganese/ Seleni/Zn 1 ml/ Total Parenteral Nutrition/Amino Acids/ Dextrose/ Fat Emulsion Intravenous 1,512 ml @ 63 mls/hr TPN CONT IV Last administered on 04/26/17 22:13; Start 04/26/17 at 22:00; Stop 04/27/17 at 21 :59; Status DC Info 1 each PRN DAILY PRN MC SEE COMMENTS; Start 04/26/17 at 14:15; Status UNV Nicotine (Nicoderm Cq 21mg) 1 patch PRN DAILY PRN TD SMOKING CESSATION; Start 04/26/17 at 16:00 Sodium Chloride 90 meq/Potassium Chloride 50 meq/ Potassium Phosphate 13.6 mmol/ Magnesium Sulfate 10 meq/ Calcium Gluconate 10 meq/ Multivitamins 10 ml/Chromium / Copper/Manganese/ Seleni/Zn 1 ml/ Total Parenteral Nutrition/Amino Acids/ Dextrose/ Fat Emulsion Intravenous 1,512 ml @ 63 mls/hr TPN CONT IV Last administered on 04/27/17 22:50; Start 04/27/17 at 22:00; Stop 04/28/17 at 21 :59; Status DC Famotidine (Pepcid Vial) 20 mg QHS IVP Last administered on 04/28/17 20:40; Start 04/28/17 at 21:00 Sodium Chloride 90 meq/Potassium Chloride 50 meq/ Potassium Phosphate 13.6 mmol/ Magnesium Sulfate 10 meq/ Calcium Gluconate 10 meq/ Multivitamins 10 ml/Chromium / Copper/Manganese/ Seleni/Zn 1 ml/ Total Parenteral Nutrition/Amino Acids/ Dextrose/ Fat Emulsion Intravenous 1,512 ml @ 63 mls/hr TPN CONT IV Last administered on 04/28/17 20:12; Start 04/28/17 at 22:00; Stop 04/29/17 at 21 :59 Active Scripts Active Reported [Ranitidine] PO [Flomax] PO [Losartan] PO DAILY [Vitamin] 1 PO DAILY [Aspirin] Mg PO DAILY Vitals/I & O Vital Sign - Last 24 Hours 04/28/17 04/28/17 04/28/17 04/28/17 15:00 19:00 20:10 23:00 Temp 97.9 97.5 97.5 97.9 97.5 97.5 Pulse 66 76 68 Resp 18 B/P (MAP) 158/88 (111) 162/88 (112) 128/81 (97) Pulse Ox 97 96 95 O2 Delivery Room Air Room Air Room Air Room Air 04/29/17 04/29/17 04/29/17 04/29/17 03:00 07:00 09:29 11:00 Temp 97.9 97.7 97.7 97.9 97.7 97.7 Pulse 60 68 68 61 Resp 18 B/P (MAP) 122/76 (91) 126/75 (92) 126/75 137/82 (100) Pulse Ox 96 98 97 O2 Delivery Room Air Room Air Room Air Intake and Output 04/28/17 04/28/17 04/29/17 15:00 23:00 07:00 Intake Total 200 ml 3146.24 ml Output Total 440 ml 40 ml Balance -240 ml 3106.24 ml KALYN LOPEZ MD Apr 29, 2017 11:39
[2017-04-29] MEDS: TPN PER PHARMACY MC PRN (12:15)
[2017-04-29] MEDS ORDERED: MAGNESIUM SULFATE 2GM 50 ML IV ONE (13:00)
--- NOTE | 2017-04-29 14:23 | PDOC ---
PROGRESS NOTES Subjective Subjective taking some liquids, does feel like he bloats; states he's passing gas and loose stool Objective Objective Vital Signs Date Time Temp Pulse Resp B/P (MAP) Pulse Ox O2 Delivery O2 Flow Rate FiO2 04/29/17 11:00 97.7 61 18 137/82 (100) 97 Room Air 97.7 04/21/17 08:00 10.0 Intake and Output 04/29/17 07:00 Intake Total 3346.24 ml Output Total 480 ml Balance 2866.24 ml IV Total 3346.24 ml Emesis 300 ml Drainage Total 180 ml # Voids 6 Physical Exam Abdomen: Soft (abdomen distended, nontender) Assessment Assessment Problems Medical Problems: (1) ETOH abuse Status: Acute Plan Plan of Care S/P appy; issues with postop ileus vs PSBO, mechanical source seems unlikely; he reports having similar bowel troubles in the past; try dulcolox supp, keep on clears only, not ready to advance Comment Review of Relevant I have reviewed the following items nika (where applicable) has been applied. Labs Laboratory Tests Test 04/28/17 06:51 04/29/17 05:40 Sodium Level 132 mmol/L (136-145) 133 mmol/L (136-145) Potassium Level 4.2 mmol/L (3.5-5.1) 4.2 mmol/L (3.5-5.1) Chloride Level 102 mmol/L (98-107) 102 mmol/L (98-107) Carbon Dioxide Level 22 mmol/L (21-32) 26 mmol/L (21-32) Anion Gap 8 (6-14) 5 (6-14) Blood Urea Nitrogen 11 mg/dL (8-26) 11 mg/dL (8-26) Creatinine 0.8 mg/dL (0.7-1.3) 0.8 mg/dL (0.7-1.3) Estimated GFR (Cockcroft-Gault) 93.5 93.5 Glucose Level 134 mg/dL (70-99) 122 mg/dL (70-99) Calcium Level 8.2 mg/dL (8.5-10.1) 8.2 mg/dL (8.5-10.1) Phosphorus Level 3.8 mg/dL (2.6-4.7) 3.6 mg/dL (2.6-4.7) Magnesium Level 1.8 mg/dL (1.8-2.4) 1.7 mg/dL (1.8-2.4) Laboratory Tests Test 04/29/17 05:40 Sodium Level 133 mmol/L (136-145) Potassium Level 4.2 mmol/L (3.5-5.1) Chloride Level 102 mmol/L (98-107) Carbon Dioxide Level 26 mmol/L (21-32) Anion Gap 5 (6-14) Blood Urea Nitrogen 11 mg/dL (8-26) Creatinine 0.8 mg/dL (0.7-1.3) Estimated GFR (Cockcroft-Gault) 93.5 Glucose Level 122 mg/dL (70-99) Calcium Level 8.2 mg/dL (8.5-10.1) Phosphorus Level 3.6 mg/dL (2.6-4.7) Magnesium Level 1.7 mg/dL (1.8-2.4) Medications Current Medications Sodium Chloride 1,000 ml @ 1,000 mls/hr 1X ONCE IV Last administered on 04/18 17:14; Start 04/18/17 at 17:00; Stop 04/18/17 at 17:59; Status DC Metronidazole 100 ml @ 100 mls/hr Q8HRS IV Last administered on 04/29/17 05: 39; Start 04/18/17 at 23:00; Stop 04/29/17 at 12:28; Status DC Piperacillin Sod/ Tazobactam Sod 3.375 gm/Dextrose 50 ml @ 100 mls/hr 1X ONCE IV ; Start 04/18/17 at 17:15; Stop 04/18/17 at 17:44; Status UNV Piperacillin Sod/ Tazobactam Sod (Zosyn) 3.375 gm 1X ONCE IVP Last administered on 04/18/17 17:41; Start 04/18/17 at 17:15; Stop 04/18/17 at 17 :16; Status DC Metronidazole 100 ml @ 100 mls/hr 1X ONCE IV ; Start 04/18/17 at 17:15; Stop 04/18/17 at 18:14; Status DC Sevoflurane (Ultane) 60 ml STK-MED ONCE IH ; Start 04/18/17 at 17:36; Stop at 17:37; Status DC Fentanyl Citrate (Fentanyl 2ml Vial) 100 mcg STK-MED ONCE .ROUTE ; Start at 17:36; Stop 04/18/17 at 17:37; Status DC Neostigmine Methylsulfate (Bloxiverz) 10 mg STK-MED ONCE .ROUTE ; Start at 17:36; Stop 04/18/17 at 17:37; Status DC Succinylcholine Chloride (Anectine) 200 mg STK-MED ONCE .ROUTE ; Start at 17:36; Stop 04/18/17 at 17:37; Status DC Glycopyrrolate (Robinul) 1 mg STK-MED ONCE .ROUTE ; Start 04/18/17 at 17:37; Stop 04/18/17 at 17:38; Status DC Rocuronium Maljamar (Zemuron) 50 mg STK-MED ONCE .ROUTE ; Start 04/18/17 at 17: 37; Stop 04/18/17 at 17:38; Status DC Propofol 20 ml @ As Directed STK-MED ONCE IV ; Start 04/18/17 at 17:37; Stop 04/18/17 at 17:38; Status DC Lidocaine HCl (Lidocaine Pf 2% Vial) 5 ml STK-MED ONCE .ROUTE ; Start 04/18/17 at 17:37; Stop 04/18/17 at 17:38; Status DC Dexamethasone Sodium Phosphate (Decadron) 20 mg STK-MED ONCE .ROUTE ; Start at 17:37; Stop 04/18/17 at 17:38; Status DC Ondansetron HCl (Zofran) 4 mg STK-MED ONCE .ROUTE ; Start 04/18/17 at 17:37; Stop 04/18/17 at 17:38; Status DC Tamsulosin HCl (Flomax) 0.4 mg DAILY PO Last administered on 04/29/17 09:29; Start 04/19/17 at 09:00 Losartan Potassium (Cozaar) 50 mg DAILY PO Last administered on 04/29/17 09: 29; Start 04/19/17 at 09:00 Multivitamins 10 ml/Thiamine HCl 100 mg/Ringer's Solution 1,011 ml @ 250 mls/ hr 1X ONCE IV Last administered on 11/14/17at 01:24; Start 04/18/17 at 19:00 ; Stop 04/18/17 at 23:02; Status DC Ondansetron HCl (Zofran) 4 mg PRN Q6HRS PRN IV NAUSEA/VOMITING; Start at 19:00; Stop 04/18/17 at 22:00; Status DC Fentanyl Citrate (Fentanyl 2ml Vial) 25 mcg PRN Q5MIN PRN IV MILD PAIN; Start 04/18/17 at 19:00; Stop 04/18/17 at 22:00; Status DC Fentanyl Citrate (Fentanyl 2ml Vial) 50 mcg PRN Q5MIN PRN IV MODERATE PAIN; Start 04/18/17 at 19:00; Stop 04/18/17 at 22:00; Status DC Morphine Sulfate 1 mg PRN Q10MIN PRN IV SEVERE PAIN; Start 04/18/17 at 19:00; Stop 04/18/17 at 22:00; Status DC Ringer's Solution 1,000 ml @ 30 mls/hr Q24H IV ; Start 04/18/17 at 18:50; Stop 04/19/17 at 06:49; Status DC Lidocaine HCl (Xylocaine-Mpf 1% Vial) 2 ml 1X PRN PRN ID IV START; Start 04/18 at 19:00; Stop 04/18/17 at 22:00; Status DC Hydromorphone HCl (Dilaudid) 0.5 mg PRN Q10MIN PRN IV SEV PAIN, Second choice; Start 04/18/17 at 19:00; Stop 04/18/17 at 22:00; Status DC Prochlorperazine Edisylate (Compazine) 5 mg PACU PRN PRN IV NAUSEA, MRX1; Start 04/18/17 at 19:00; Stop 04/18/17 at 22:00; Status DC Bupivacaine HCl/ Epinephrine Bitart (Sensorcain-Mpf Epi 0.5%-[id number]) 30 ml STK -MED ONCE .ROUTE ; Start 04/18/17 at 19:16; Stop 04/18/17 at 19:17; Status DC Fentanyl Citrate (Fentanyl 2ml Vial) 100 mcg STK-MED ONCE .ROUTE ; Start at 19:49; Stop 04/18/17 at 19:50; Status DC Phenylephrine HCl 1 mg STK-MED ONCE IV ; Start 04/18/17 at 20:04; Stop at 20:05; Status DC Cellulose 1 each STK-MED ONCE .ROUTE Last administered on 04/18/17 21:07; Start 04/18/17 at 20:35; Stop 04/18/17 at 20:36; Status DC Cellulose 1 each STK-MED ONCE .ROUTE ; Start 04/18/17 at 21:26; Stop 04/18/17 at 21:27; Status DC Hydromorphone HCl 30 ml @ 0 mls/hr CONT PRN PRN IV PROTOCOL Last administered on 04/18/17 23:53; Start 04/18/17 at 22:30; Stop 04/21/17 at 09:03; Status DC Morphine Sulfate 2 mg STK-MED ONCE .ROUTE ; Start 04/18/17 at 22:47; Stop at 22:48; Status DC Ondansetron HCl (Zofran) 4 mg PRN Q6HRS PRN IV NAUSEA/VOMITING; Start at 23:00; Stop 04/19/17 at 06:00; Status DC Fentanyl Citrate (Fentanyl 2ml Vial) 25 mcg PRN Q5MIN PRN IV MILD PAIN; Start 04/18/17 at 23:00; Stop 04/19/17 at 01:45; Status DC Fentanyl Citrate (Fentanyl 2ml Vial) 50 mcg PRN Q5MIN PRN IV MODERATE PAIN; Start 04/18/17 at 23:00; Stop 04/19/17 at 01:45; Status DC Morphine Sulfate 1 mg PRN Q10MIN PRN IV SEVERE PAIN Last administered on 22:53; Start 04/18/17 at 23:00; Stop 04/19/17 at 01:45; Status DC Hydromorphone HCl (Dilaudid) 0.5 mg PRN Q10MIN PRN IV SEV PAIN, Second choice Last administered on 04/18/17 23:30; Start 04/18/17 at 23:00; Stop 04/19/17 at 01:45; Status DC Prochlorperazine Edisylate (Compazine) 5 mg PACU PRN PRN IV NAUSEA, MRX1 Last administered on 04/18/17 22:59; Start 04/18/17 at 23:00; Stop 04/19/17 at 01 :45; Status DC Albuterol/ Ipratropium (Duoneb) 3 ml 1X PACU PRN NEB SEE COMMENTS Last administered on 04/18/17 23:13; Start 04/18/17 at 23:15; Stop 04/19/17 at 23 :14; Status DC Hydralazine HCl (Apresoline) 10 mg 1X PACU PRN PO HYPERTENSION, SEE COMMENTS; Start 04/18/17 at 23:30; Stop 04/19/17 at 01:45; Status DC Labetalol HCl (Normodyne) 20 mg PRN Q2HR PRN IVP HYPERTENSION, SEE COMMENTS; Start 04/19/17 at 01:45; Stop 04/19/17 at 15:19; Status DC Acetaminophen (Tylenol) 650 mg PRN Q6HRS PRN PO FEVER; Start 04/19/17 at 15:30 Ondansetron HCl (Zofran) 4 mg PRN Q6HRS PRN IV NAUSEA/VOMITING Last administered on 04/28/17 19:19; Start 04/19/17 at 15:30 Morphine Sulfate 2 mg PRN Q2HR PRN IV PAIN; Start 04/19/17 at 15:30; Stop at 10:44; Status DC Tramadol HCl (Ultram) 50 mg PRN Q6HRS PRN PO PAIN; Start 04/19/17 at 15:30 Hydralazine HCl (Apresoline Inj) 10 mg PRN Q4HRS PRN IVP ELEVATED BP, SEE COMMENTS Last administered on 04/19/17 16:15; Start 04/19/17 at 15:30 Docusate Sodium (Colace) 100 mg PRN DAILY PRN PO CONSTIPATION; Start 04/19/17 at 15:30 Lorazepam (Ativan) 2 mg PRN Q4HRS PRN IV ANXIETY / AGITATION Last administered on 04/24/17 19:15; Start 04/19/17 at 15:30; Stop 04/25/17 at 14:58; Status DC Multivitamins 10 ml/Thiamine HCl 100 mg/Dextrose/ Lactated Ringer's 1,011 ml @ 100 mls/hr Q24H IV ; Start 04/19/17 at 16:00; Stop 04/19/17 at 16:00; Status DC Amino Acids/ Glycerin/ Electrolytes 1,000 ml @ 80 mls/hr [id number] IV Last administered on 04/26/17 05:35; Start 04/19/17 at 15:30; Stop 04/26/17 at 12 :24; Status DC Enoxaparin Sodium (Lovenox 40mg Syringe) 40 mg Q24H SQ Last administered on 13:36; Start 04/19/17 at 15:30; Stop 04/28/17 at 07:52; Status DC Famotidine (Pepcid Vial) 20 mg QHS IVP Last administered on 04/23/17 20:47; Start 04/19/17 at 21:00; Stop 04/24/17 at 15:06; Status DC Multivitamins 10 ml/Thiamine HCl 100 mg/Folic Acid 1 mg/Dextrose/ Lactated Ringer's 1,011.2 ml @ 100.02 mls/hr Q24H IV Last administered on 04/22/17 16 :55; Start 04/19/17 at 16:00; Stop 04/23/17 at 02:07; Status DC Sodium Phosphate 20 mmol/Dextrose 256.6667 ml @ 64.167 m... 1X ONCE IV Last administered on 04/20/17 09:03; Start 04/20/17 at 09:00; Stop 04/20/17 at 12 :59; Status DC Lorazepam (Ativan) 0.5 mg PRN 1X PRN IV ANXIETY / AGITATION Last administered on 04/21/17 02:00; Start 04/21/17 at 01:00; Stop 04/25/17 at 14:58; Status DC Diphenhydramine HCl (Benadryl) 25 mg PRN 1X PRN IVP INSOMNIA Last administered on 04/23/17 20:47; Start 04/21/17 at 01:00 Acetaminophen (Acetaminophen Supp) 650 mg PRN Q6HRS PRN WI MILD PAIN / TEMP; Start 04/21/17 at 01:00 Sodium Chloride 1,000 ml @ 75 mls/hr [id number] IV Last administered on 06:22; Start 04/21/17 at 09:15; Stop 04/24/17 at 16:57; Status DC Ciprofloxacin/ Dextrose 200 ml @ 200 mls/hr Q12HR IV Last administered on 09:29; Start 04/21/17 at 13:30; Stop 04/29/17 at 12:28; Status DC Lorazepam (Ativan) 1 mg PRN Q2HR PRN IV Agitation, Anxiety Last administered on 04/28/17 20:40; Start 04/21/17 at 15:30 Hydromorphone HCl (Dilaudid) 0.5 mg PRN Q4HRS PRN IVP SEVERE PAIN Last administered on 04/25/17 07:08; Start 04/22/17 at 11:45 Famotidine (Pepcid) 20 mg QHS PO Last administered on 04/27/17 21:11; Start 04/24/17 at 21:00; Stop 04/28/17 at 07:52; Status DC Lactobacillus Rhamnosus (Culturelle) 1 cap BID PO Last administered on 09:29; Start 04/24/17 at 21:00 Bisacodyl (Dulcolax Supp) 10 mg 1X ONCE WI Last administered on 04/25/17 12: 27; Start 04/25/17 at 11:00; Stop 04/25/17 at 11:01; Status DC Morphine Sulfate 2 mg PRN Q2HR PRN IV MODERATE PAIN Last administered on 00:06; Start 04/25/17 at 10:44 Info 1 each PRN DAILY PRN MC SEE COMMENTS Last administered on 04/29/17 12:15 ; Start 04/26/17 at 12:30 Sodium Chloride 90 meq/Potassium Chloride 50 meq/ Potassium Phosphate 13.6 mmol/ Magnesium Sulfate 10 meq/ Calcium Gluconate 10 meq/ Multivitamins 10 ml/Chromium / Copper/Manganese/ Seleni/Zn 1 ml/ Total Parenteral Nutrition/Amino Acids/ Dextrose/ Fat Emulsion Intravenous 1,512 ml @ 63 mls/hr TPN CONT IV Last administered on 04/26/17 22:13; Start 04/26/17 at 22:00; Stop 04/27/17 at 21 :59; Status DC Info 1 each PRN DAILY PRN MC SEE COMMENTS; Start 04/26/17 at 14:15; Status UNV Nicotine (Nicoderm Cq 21mg) 1 patch PRN DAILY PRN TD SMOKING CESSATION; Start 04/26/17 at 16:00 Sodium Chloride 90 meq/Potassium Chloride 50 meq/ Potassium Phosphate 13.6 mmol/ Magnesium Sulfate 10 meq/ Calcium Gluconate 10 meq/ Multivitamins 10 ml/Chromium / Copper/Manganese/ Seleni/Zn 1 ml/ Total Parenteral Nutrition/Amino Acids/ Dextrose/ Fat Emulsion Intravenous 1,512 ml @ 63 mls/hr TPN CONT IV Last administered on 04/27/17 22:50; Start 04/27/17 at 22:00; Stop 04/28/17 at 21 :59; Status DC Famotidine (Pepcid Vial) 20 mg QHS IVP Last administered on 04/28/17 20:40; Start 04/28/17 at 21:00 Sodium Chloride 90 meq/Potassium Chloride 50 meq/ Potassium Phosphate 13.6 mmol/ Magnesium Sulfate 10 meq/ Calcium Gluconate 10 meq/ Multivitamins 10 ml/Chromium / Copper/Manganese/ Seleni/Zn 1 ml/ Total Parenteral Nutrition/Amino Acids/ Dextrose/ Fat Emulsion Intravenous 1,512 ml @ 63 mls/hr TPN CONT IV Last administered on 04/28/17 20:12; Start 04/28/17 at 22:00; Stop 04/29/17 at 21 :59 Sodium Chloride 90 meq/Potassium Chloride 50 meq/ Potassium Phosphate 13.6 mmol/ Magnesium Sulfate 10 meq/ Calcium Gluconate 10 meq/ Multivitamins 10 ml/Chromium / Copper/Manganese/ Seleni/Zn 1 ml/ Total Parenteral Nutrition/Amino Acids/ Dextrose/ Fat Emulsion Intravenous 1,512 ml @ 63 mls/hr TPN CONT IV ; Start 04/29/17 at 22:00; Stop 04/30/17 at 21:59 Magnesium Sulfate/ Dextrose 50 ml @ 25 mls/hr 1X ONCE IV Last administered on 04/29/17 13:32; Start 04/29/17 at 13:00; Stop 04/29/17 at 14:59 Active Scripts Active Reported [Ranitidine] PO [Flomax] PO [Losartan] PO DAILY [Vitamin] 1 PO DAILY [Aspirin] Mg PO DAILY Vitals/I & O Vital Sign - Last 24 Hours 04/28/17 04/28/17 04/28/17 04/28/17 15:00 19:00 20:10 23:00 Temp 97.9 97.5 97.5 97.9 97.5 97.5 Pulse 66 76 68 Resp 18 18 18 B/P (MAP) 158/88 (111) 162/88 (112) 128/81 (97) Pulse Ox 97 96 95 O2 Delivery Room Air Room Air Room Air Room Air 04/29/17 04/29/17 04/29/17 04/29/17 03:00 07:00 07:50 09:29 Temp 97.9 97.7 97.9 97.7 Pulse 60 68 68 Resp 18 18 B/P (MAP) 122/76 (91) 126/75 (92) 126/75 Pulse Ox 96 98 O2 Delivery Room Air Room Air Room Air 04/29/17 11:00 Temp 97.7 97.7 Pulse 61 Resp 18 B/P (MAP) 137/82 (100) Pulse Ox 97 O2 Delivery Room Air Intake and Output 04/28/17 04/28/17 04/29/17 15:00 23:00 07:00 Intake Total 200 ml 3146.24 ml Output Total 440 ml 40 ml Balance -240 ml 3106.24 ml ANA PABON MD Apr 29, 2017 14:23
[2017-04-29 15:00] VITALS: BP 142/77
[2017-04-29 19:00] VITALS: BP 122/74
[2017-04-29] MEDS: FAMOTIDINE 20 MG/2 ML VIAL IVP SCH (20:55)
[2017-04-29] MEDS ORDERED: DEXTROSE 70% IV SCH ×10 (22:00)
[2017-04-29] MEDS ORDERED: TOTAL PARENTERAL NUTRITION IV SCH ×10 (22:00)
[2017-04-29] MEDS ORDERED: AMINO ACIDS IV SCH ×10 (22:00)
[2017-04-29] MEDS ORDERED: [UNRECOGNIZED DRUG - OTHER] IV SCH ×10 (22:00)
[2017-04-29 23:00] VITALS: BP 110/66
[2017-04-30 03:00] VITALS: BP 124/74
[2017-04-30 05:30] LABS: BASO # 0.1 x10^3/uL (0.0-0.2); BASO % 1 % (0-3); EOS % 2 % (0-3); HEMATOCRIT 38.6 % (39.0-53.0); HEMOGLOBIN 13.2 g/dL (13.0-17.5); LYMPH % 17 % (24-48); MEAN CORPUSCULAR HEMOGLOBIN 33 pg (25-35); MEAN CORPUSCULAR HGB CONC 34 g/dL (31-37); MEAN CORPUSCULAR VOLUME 97 fL (79-100); MONO % 8 % (0-9); NEUT % 72 % (31-73); PLATELET COUNT 394 x10^3/uL (140-400); RED BLOOD COUNT 3.98 x10^6/uL (4.30-5.70); RED CELL DISTRIBUTION WIDTH 13.2 % (11.5-14.5); WHITE BLOOD COUNT 11.7 x10^3/uL (4.0-11.0)
[2017-04-30 08:36] VITALS: BP 127/86
--- NOTE | 2017-04-30 09:22 | PDOC ---
PROGRESS NOTES Chief Complaint Chief Complaint acute abdominal pain with acute appendicitis s/p open appendectomy Persistent ileus in an alcoholic Metabolic enceph resolved ETOH abuse mild COPD, hyperlipidemia BPH hypophosphatemia mild malnutrition post op sbo vs ileus anemia post 1 u PRBC during sx History of Present Illness History of Present Illness doing ok GS recs to keep on liquid diet and not advance any further for now - I agree It took him 1.5 hrs to get 2 glasses of liquids down PLAN: COnt TPN and liq diet for now Supprotive care Vitals Vitals Vital Signs Date Time Temp Pulse Resp B/P (MAP) Pulse Ox O2 Delivery O2 Flow Rate FiO2 04/30/17 08:36 96.6 67 20 127/86 (100) 98 96.6 04/30/17 03:00 Room Air Physical Exam General: Alert, Oriented X3, Cooperative, No acute distress Heart: Regular rate, Normal S1, Normal S2 Lungs: Clear Abdomen: Soft (abdomen distended, nontender) Extremities: No clubbing, No cyanosis Skin: No rashes, No breakdown Labs LABS Laboratory Tests Test 04/30/17 05:05 White Blood Count 11.7 x10^3/uL (4.0-11.0) Red Blood Count 3.98 x10^6/uL (4.30-5.70) Hemoglobin 13.2 g/dL (13.0-17.5) Hematocrit 38.6 % (39.0-53.0) Mean Corpuscular Volume 97 fL (79-100) Mean Corpuscular Hemoglobin 33 pg (25-35) Mean Corpuscular Hemoglobin Concent 34 g/dL (31-37) Red Cell Distribution Width 13.2 % (11.5-14.5) Platelet Count 394 x10^3/uL (140-400) Neutrophils (%) (Auto) 72 % (31-73) Lymphocytes (%) (Auto) 17 % (24-48) Monocytes (%) (Auto) 8 % (0-9) Eosinophils (%) (Auto) 2 % (0-3) Basophils (%) (Auto) 1 % (0-3) Neutrophils # (Auto) 8.4 x10^3uL (1.8-7.7) Lymphocytes # (Auto) 2.0 x10^3/uL (1.0-4.8) Monocytes # (Auto) 1.0 x10^3/uL (0.0-1.1) Eosinophils # (Auto) 0.2 x10^3/uL (0.0-0.7) Basophils # (Auto) 0.1 x10^3/uL (0.0-0.2) Review of Systems Review of Systems small stools, flatus, no CP, SOA, abd distention not worse Assessment and Plan Assessmemt and Plan Problems Medical Problems: (1) ETOH abuse Status: Acute Problems: Comment Review of Relevant I have reviewed the following items nika (where applicable) has been applied. Labs Laboratory Tests Test 04/29/17 05:40 04/29/17 07:00 04/30/17 05:05 Sodium Level 133 mmol/L (136-145) Potassium Level 4.2 mmol/L (3.5-5.1) Chloride Level 102 mmol/L (98-107) Carbon Dioxide Level 26 mmol/L (21-32) Anion Gap 5 (6-14) Blood Urea Nitrogen 11 mg/dL (8-26) Creatinine 0.8 mg/dL (0.7-1.3) Estimated GFR (Cockcroft-Gault) 93.5 Glucose Level 122 mg/dL (70-99) Calcium Level 8.2 mg/dL (8.5-10.1) Phosphorus Level 3.6 mg/dL (2.6-4.7) Magnesium Level 1.7 mg/dL (1.8-2.4) Clostridium difficile Toxin (PCR) Negative (Negative) White Blood Count 11.7 x10^3/uL (4.0-11.0) Red Blood Count 3.98 x10^6/uL (4.30-5.70) Hemoglobin 13.2 g/dL (13.0-17.5) Hematocrit 38.6 % (39.0-53.0) Mean Corpuscular Volume 97 fL (79-100) Mean Corpuscular Hemoglobin 33 pg (25-35) Mean Corpuscular Hemoglobin Concent 34 g/dL (31-37) Red Cell Distribution Width 13.2 % (11.5-14.5) Platelet Count 394 x10^3/uL (140-400) Neutrophils (%) (Auto) 72 % (31-73) Lymphocytes (%) (Auto) 17 % (24-48) Monocytes (%) (Auto) 8 % (0-9) Eosinophils (%) (Auto) 2 % (0-3) Basophils (%) (Auto) 1 % (0-3) Neutrophils # (Auto) 8.4 x10^3uL (1.8-7.7) Lymphocytes # (Auto) 2.0 x10^3/uL (1.0-4.8) Monocytes # (Auto) 1.0 x10^3/uL (0.0-1.1) Eosinophils # (Auto) 0.2 x10^3/uL (0.0-0.7) Basophils # (Auto) 0.1 x10^3/uL (0.0-0.2) Laboratory Tests Test 04/30/17 05:05 White Blood Count 11.7 x10^3/uL (4.0-11.0) Red Blood Count 3.98 x10^6/uL (4.30-5.70) Hemoglobin 13.2 g/dL (13.0-17.5) Hematocrit 38.6 % (39.0-53.0) Mean Corpuscular Volume 97 fL (79-100) Mean Corpuscular Hemoglobin 33 pg (25-35) Mean Corpuscular Hemoglobin Concent 34 g/dL (31-37) Red Cell Distribution Width 13.2 % (11.5-14.5) Platelet Count 394 x10^3/uL (140-400) Neutrophils (%) (Auto) 72 % (31-73) Lymphocytes (%) (Auto) 17 % (24-48) Monocytes (%) (Auto) 8 % (0-9) Eosinophils (%) (Auto) 2 % (0-3) Basophils (%) (Auto) 1 % (0-3) Neutrophils # (Auto) 8.4 x10^3uL (1.8-7.7) Lymphocytes # (Auto) 2.0 x10^3/uL (1.0-4.8) Monocytes # (Auto) 1.0 x10^3/uL (0.0-1.1) Eosinophils # (Auto) 0.2 x10^3/uL (0.0-0.7) Basophils # (Auto) 0.1 x10^3/uL (0.0-0.2) Medications Current Medications Sodium Chloride 1,000 ml @ 1,000 mls/hr 1X ONCE IV Last administered on 04/18t 17:14; Start 04/18/17 at 17:00; Stop 04/18/17 at 17:59; Status DC Metronidazole 100 ml @ 100 mls/hr Q8HRS IV Last administered on 04/29/17t 05: 39; Start 04/18/17 at 23:00; Stop 04/29/17 at 12:28; Status DC Piperacillin Sod/ Tazobactam Sod 3.375 gm/Dextrose 50 ml @ 100 mls/hr 1X ONCE IV ; Start 04/18/17 at 17:15; Stop 04/18/17 at 17:44; Status UNV Piperacillin Sod/ Tazobactam Sod (Zosyn) 3.375 gm 1X ONCE IVP Last administered on 04/18/17t 17:41; Start 04/18/17 at 17:15; Stop 04/18/17 at 17 :16; Status DC Metronidazole 100 ml @ 100 mls/hr 1X ONCE IV ; Start 04/18/17 at 17:15; Stop 04/18/17 at 18:14; Status DC Sevoflurane (Ultane) 60 ml STK-MED ONCE IH ; Start 04/18/17 at 17:36; Stop at 17:37; Status DC Fentanyl Citrate (Fentanyl 2ml Vial) 100 mcg STK-MED ONCE .ROUTE ; Start at 17:36; Stop 04/18/17 at 17:37; Status DC Neostigmine Methylsulfate (Bloxiverz) 10 mg STK-MED ONCE .ROUTE ; Start at 17:36; Stop 04/18/17 at 17:37; Status DC Succinylcholine Chloride (Anectine) 200 mg STK-MED ONCE .ROUTE ; Start at 17:36; Stop 04/18/17 at 17:37; Status DC Glycopyrrolate (Robinul) 1 mg STK-MED ONCE .ROUTE ; Start 04/18/17 at 17:37; Stop 04/18/17 at 17:38; Status DC Rocuronium [place] (Zemuron) 50 mg STK-MED ONCE .ROUTE ; Start 04/18/17 at 17: 37; Stop 04/18/17 at 17:38; Status DC Propofol 20 ml @ As Directed STK-MED ONCE IV ; Start 04/18/17 at 17:37; Stop 04/18/17 at 17:38; Status DC Lidocaine HCl (Lidocaine Pf 2% Vial) 5 ml STK-MED ONCE .ROUTE ; Start 04/18/17 at 17:37; Stop 04/18/17 at 17:38; Status DC Dexamethasone Sodium Phosphate (Decadron) 20 mg STK-MED ONCE .ROUTE ; Start at 17:37; Stop 04/18/17 at 17:38; Status DC Ondansetron HCl (Zofran) 4 mg STK-MED ONCE .ROUTE ; Start 04/18/17 at 17:37; Stop 04/18/17 at 17:38; Status DC Tamsulosin HCl (Flomax) 0.4 mg DAILY PO Last administered on 04/29/17 09:29; Start 04/19/17 at 09:00 Losartan Potassium (Cozaar) 50 mg DAILY PO Last administered on 04/29/17 09: 29; Start 04/19/17 at 09:00 Multivitamins 10 ml/Thiamine HCl 100 mg/Ringer's Solution 1,011 ml @ 250 mls/ hr 1X ONCE IV Last administered on 04/19/17 01:24; Start 04/18/17 at 19:00 ; Stop 04/18/17 at 23:02; Status DC Ondansetron HCl (Zofran) 4 mg PRN Q6HRS PRN IV NAUSEA/VOMITING; Start at 19:00; Stop 04/18/17 at 22:00; Status DC Fentanyl Citrate (Fentanyl 2ml Vial) 25 mcg PRN Q5MIN PRN IV MILD PAIN; Start 04/18/17 at 19:00; Stop 04/18/17 at 22:00; Status DC Fentanyl Citrate (Fentanyl 2ml Vial) 50 mcg PRN Q5MIN PRN IV MODERATE PAIN; Start 04/18/17 at 19:00; Stop 04/18/17 at 22:00; Status DC Morphine Sulfate 1 mg PRN Q10MIN PRN IV SEVERE PAIN; Start 04/18/17 at 19:00; Stop 04/18/17 at 22:00; Status DC Ringer's Solution 1,000 ml @ 30 mls/hr Q24H IV ; Start 04/18/17 at 18:50; Stop 04/19/17 at 06:49; Status DC Lidocaine HCl (Xylocaine-Mpf 1% Vial) 2 ml 1X PRN PRN ID IV START; Start 04/18 at 19:00; Stop 04/18/17 at 22:00; Status DC Hydromorphone HCl (Dilaudid) 0.5 mg PRN Q10MIN PRN IV SEV PAIN, Second choice; Start 04/18/17 at 19:00; Stop 04/18/17 at 22:00; Status DC Prochlorperazine Edisylate (Compazine) 5 mg PACU PRN PRN IV NAUSEA, MRX1; Start 04/18/17 at 19:00; Stop 04/18/17 at 22:00; Status DC Bupivacaine HCl/ Epinephrine Bitart (Sensorcain-Mpf Epi 0.5%-[id number]) 30 ml STK -MED ONCE .ROUTE ; Start 04/18/17 at 19:16; Stop 04/18/17 at 19:17; Status DC Fentanyl Citrate (Fentanyl 2ml Vial) 100 mcg STK-MED ONCE .ROUTE ; Start at 19:49; Stop 04/18/17 at 19:50; Status DC Phenylephrine HCl 1 mg STK-MED ONCE IV ; Start 04/18/17 at 20:04; Stop at 20:05; Status DC Cellulose 1 each STK-MED ONCE .ROUTE Last administered on 04/18/17t 21:07; Start 04/18/17 at 20:35; Stop 04/18/17 at 20:36; Status DC Cellulose 1 each STK-MED ONCE .ROUTE ; Start 04/18/17 at 21:26; Stop 04/18/17 at 21:27; Status DC Hydromorphone HCl 30 ml @ 0 mls/hr CONT PRN PRN IV PROTOCOL Last administered on 04/18/17t 23:53; Start 04/18/17 at 22:30; Stop 04/21/17 at 09:03; Status DC Morphine Sulfate 2 mg STK-MED ONCE .ROUTE ; Start 04/18/17 at 22:47; Stop at 22:48; Status DC Ondansetron HCl (Zofran) 4 mg PRN Q6HRS PRN IV NAUSEA/VOMITING; Start at 23:00; Stop 04/19/17 at 06:00; Status DC Fentanyl Citrate (Fentanyl 2ml Vial) 25 mcg PRN Q5MIN PRN IV MILD PAIN; Start 04/18/17 at 23:00; Stop 04/19/17 at 01:45; Status DC Fentanyl Citrate (Fentanyl 2ml Vial) 50 mcg PRN Q5MIN PRN IV MODERATE PAIN; Start 04/18/17 at 23:00; Stop 04/19/17 at 01:45; Status DC Morphine Sulfate 1 mg PRN Q10MIN PRN IV SEVERE PAIN Last administered on 22:53; Start 04/18/17 at 23:00; Stop 04/19/17 at 01:45; Status DC Hydromorphone HCl (Dilaudid) 0.5 mg PRN Q10MIN PRN IV SEV PAIN, Second choice Last administered on 04/18/17 23:30; Start 04/18/17 at 23:00; Stop 04/19/17 at 01:45; Status DC Prochlorperazine Edisylate (Compazine) 5 mg PACU PRN PRN IV NAUSEA, MRX1 Last administered on 04/18/17 22:59; Start 04/18/17 at 23:00; Stop 04/19/17 at 01 :45; Status DC Albuterol/ Ipratropium (Duoneb) 3 ml 1X PACU PRN NEB SEE COMMENTS Last administered on 04/18/17 23:13; Start 04/18/17 at 23:15; Stop 04/19/17 at 23 :14; Status DC Hydralazine HCl (Apresoline) 10 mg 1X PACU PRN PO HYPERTENSION, SEE COMMENTS; Start 04/18/17 at 23:30; Stop 04/19/17 at 01:45; Status DC Labetalol HCl (Normodyne) 20 mg PRN Q2HR PRN IVP HYPERTENSION, SEE COMMENTS; Start 04/19/17 at 01:45; Stop 04/19/17 at 15:19; Status DC Acetaminophen (Tylenol) 650 mg PRN Q6HRS PRN PO FEVER; Start 04/19/17 at 15:30 Ondansetron HCl (Zofran) 4 mg PRN Q6HRS PRN IV NAUSEA/VOMITING Last administered on 04/28/17 19:19; Start 04/19/17 at 15:30 Morphine Sulfate 2 mg PRN Q2HR PRN IV PAIN; Start 04/19/17 at 15:30; Stop at 10:44; Status DC Tramadol HCl (Ultram) 50 mg PRN Q6HRS PRN PO PAIN; Start 04/19/17 at 15:30 Hydralazine HCl (Apresoline Inj) 10 mg PRN Q4HRS PRN IVP ELEVATED BP, SEE COMMENTS Last administered on 04/19/17 16:15; Start 04/19/17 at 15:30 Docusate Sodium (Colace) 100 mg PRN DAILY PRN PO CONSTIPATION; Start 04/19/17 at 15:30 Lorazepam (Ativan) 2 mg PRN Q4HRS PRN IV ANXIETY / AGITATION Last administered on 04/24/17 19:15; Start 04/19/17 at 15:30; Stop 04/25/17 at 14:58; Status DC Multivitamins 10 ml/Thiamine HCl 100 mg/Dextrose/ Lactated Ringer's 1,011 ml @ 100 mls/hr Q24H IV ; Start 04/19/17 at 16:00; Stop 04/19/17 at 16:00; Status DC Amino Acids/ Glycerin/ Electrolytes 1,000 ml @ 80 mls/hr [id number] IV Last administered on 04/26/17 05:35; Start 04/19/17 at 15:30; Stop 04/26/17 at 12 :24; Status DC Enoxaparin Sodium (Lovenox 40mg Syringe) 40 mg Q24H SQ Last administered on 13:36; Start 04/19/17 at 15:30; Stop 04/28/17 at 07:52; Status DC Famotidine (Pepcid Vial) 20 mg QHS IVP Last administered on 04/23/17 20:47; Start 04/19/17 at 21:00; Stop 04/24/17 at 15:06; Status DC Multivitamins 10 ml/Thiamine HCl 100 mg/Folic Acid 1 mg/Dextrose/ Lactated Ringer's 1,011.2 ml @ 100.02 mls/hr Q24H IV Last administered on 04/22/17 16 :55; Start 04/19/17 at 16:00; Stop 04/23/17 at 02:07; Status DC Sodium Phosphate 20 mmol/Dextrose 256.6667 ml @ 64.167 m... 1X ONCE IV Last administered on 04/20/17 09:03; Start 04/20/17 at 09:00; Stop 04/20/17 at 12 :59; Status DC Lorazepam (Ativan) 0.5 mg PRN 1X PRN IV ANXIETY / AGITATION Last administered on 04/21/17 02:00; Start 04/21/17 at 01:00; Stop 04/25/17 at 14:58; Status DC Diphenhydramine HCl (Benadryl) 25 mg PRN 1X PRN IVP INSOMNIA Last administered on 04/23/17 20:47; Start 04/21/17 at 01:00 Acetaminophen (Acetaminophen Supp) 650 mg PRN Q6HRS PRN [place] MILD PAIN / TEMP; Start 04/21/17 at 01:00 Sodium Chloride 1,000 ml @ 75 mls/hr [id number] IV Last administered on 06:22; Start 04/21/17 at 09:15; Stop 04/24/17 at 16:57; Status DC Ciprofloxacin/ Dextrose 200 ml @ 200 mls/hr Q12HR IV Last administered on 09:29; Start 04/21/17 at 13:30; Stop 04/29/17 at 12:28; Status DC Lorazepam (Ativan) 1 mg PRN Q2HR PRN IV Agitation, Anxiety Last administered on 04/29/17 20:55; Start 04/21/17 at 15:30 Hydromorphone HCl (Dilaudid) 0.5 mg PRN Q4HRS PRN IVP SEVERE PAIN Last administered on 04/25/17 07:08; Start 04/22/17 at 11:45 Famotidine (Pepcid) 20 mg QHS PO Last administered on 04/27/17 21:11; Start 04/24/17 at 21:00; Stop 04/28/17 at 07:52; Status DC Lactobacillus Rhamnosus (Culturelle) 1 cap BID PO Last administered on 20:55; Start 04/24/17 at 21:00 Bisacodyl (Dulcolax Supp) 10 mg 1X ONCE [place] Last administered on 04/25/17 12: 27; Start 04/25/17 at 11:00; Stop 04/25/17 at 11:01; Status DC Morphine Sulfate 2 mg PRN Q2HR PRN IV MODERATE PAIN Last administered on 00:06; Start 04/25/17 at 10:44 Info 1 each PRN DAILY PRN MC SEE COMMENTS Last administered on 04/29/17 12:15 ; Start 04/26/17 at 12:30 Sodium Chloride 90 meq/Potassium Chloride 50 meq/ Potassium Phosphate 13.6 mmol/ Magnesium Sulfate 10 meq/ Calcium Gluconate 10 meq/ Multivitamins 10 ml/Chromium / Copper/Manganese/ Seleni/Zn 1 ml/ Total Parenteral Nutrition/Amino Acids/ Dextrose/ Fat Emulsion Intravenous 1,512 ml @ 63 mls/hr TPN CONT IV Last administered on 04/26/17 22:13; Start 04/26/17 at 22:00; Stop 04/27/17 at 21 :59; Status DC Info 1 each PRN DAILY PRN MC SEE COMMENTS; Start 04/26/17 at 14:15; Status UNV Nicotine (Nicoderm Cq 21mg) 1 patch PRN DAILY PRN TD SMOKING CESSATION; Start 04/26/17 at 16:00 Sodium Chloride 90 meq/Potassium Chloride 50 meq/ Potassium Phosphate 13.6 mmol/ Magnesium Sulfate 10 meq/ Calcium Gluconate 10 meq/ Multivitamins 10 ml/Chromium / Copper/Manganese/ Seleni/Zn 1 ml/ Total Parenteral Nutrition/Amino Acids/ Dextrose/ Fat Emulsion Intravenous 1,512 ml @ 63 mls/hr TPN CONT IV Last administered on 04/27/17 22:50; Start 04/27/17 at 22:00; Stop 04/28/17 at 21 :59; Status DC Famotidine (Pepcid Vial) 20 mg QHS IVP Last administered on 04/29/17 20:55; Start 04/28/17 at 21:00 Sodium Chloride 90 meq/Potassium Chloride 50 meq/ Potassium Phosphate 13.6 mmol/ Magnesium Sulfate 10 meq/ Calcium Gluconate 10 meq/ Multivitamins 10 ml/Chromium / Copper/Manganese/ Seleni/Zn 1 ml/ Total Parenteral Nutrition/Amino Acids/ Dextrose/ Fat Emulsion Intravenous 1,512 ml @ 63 mls/hr TPN CONT IV Last administered on 04/28/17 20:12; Start 04/28/17 at 22:00; Stop 04/29/17 at 21 :59; Status DC Sodium Chloride 90 meq/Potassium Chloride 50 meq/ Potassium Phosphate 13.6 mmol/ Magnesium Sulfate 10 meq/ Calcium Gluconate 10 meq/ Multivitamins 10 ml/Chromium / Copper/Manganese/ Seleni/Zn 1 ml/ Total Parenteral Nutrition/Amino Acids/ Dextrose/ Fat Emulsion Intravenous 1,512 ml @ 63 mls/hr TPN CONT IV Last administered on 04/29/17 20:55; Start 04/29/17 at 22:00; Stop 04/30/17 at 21 :59 Magnesium Sulfate/ Dextrose 50 ml @ 25 mls/hr 1X ONCE IV Last administered on 04/29/17 13:32; Start 04/29/17 at 13:00; Stop 04/29/17 at 14:59; Status DC Bisacodyl (Dulcolax Supp) 10 mg DAILY [place] ; Start 04/30/17 at 09:00 Active Scripts Active Reported [Ranitidine] PO [Flomax] PO [Losartan] PO DAILY [Vitamin] 1 PO DAILY [Aspirin] Mg PO DAILY Vitals/I & O Vital Sign - Last 24 Hours 04/29/17 04/29/17 04/29/17 04/29/17 09:29 11:00 15:00 19:00 Temp 97.7 97.9 97.7 97.7 97.9 97.7 Pulse 68 61 61 73 Resp 18 16 18 B/P (MAP) 126/75 137/82 (100) 142/77 (98) 122/74 (90) Pulse Ox 97 96 93 O2 Delivery Room Air Room Air Room Air 04/29/17 04/29/17 04/30/17 04/30/17 19:45 23:00 03:00 08:36 Temp 97.9 97.5 96.6 97.9 97.5 96.6 Pulse 79 79 67 Resp 18 18 20 B/P (MAP) 110/66 (81) 124/74 (91) 127/86 (100) Pulse Ox 97 97 98 O2 Delivery Room Air Room Air Room Air Intake and Output 04/29/17 04/29/17 04/30/17 15:00 23:00 07:00 Intake Total 691 ml Output Total 155 ml 550 ml Balance -155 ml 141 ml KALYN LOPEZ MD Apr 30, 2017 09:22
[2017-04-30] MEDS: BISACODYL 10 MG SUPP.RECT. PR SCH (09:53)
[2017-04-30] MEDS: TAMSULOSIN 0.4 MG CAP.ER.24H. PO SCH ×2 (09:54→20:44)
[2017-04-30] MEDS: LACTOBACILLUS RHAMNOSUS GG 1 CAPSULE. PO SCH ×2 (09:54→20:44)
[2017-04-30] MEDS: LOSARTAN POTASSIUM 50 MG TABLET. PO SCH ×2 (09:54→12:00)
[2017-04-30 11:21] VITALS: BP 152/92
[2017-04-30] MEDS: TPN PER PHARMACY MC PRN (11:58)
[2017-04-30] MEDS ORDERED: LOSARTAN POTASSIUM 50 MG TABLET. PO ONE (12:30)
[2017-04-30] MEDS: FAMOTIDINE 20 MG TABLET. PO SCH ×2 (13:03→20:44)
[2017-04-30] MEDS: ASPIRIN 325 MG TABLET PO SCH (13:03)
[2017-04-30] MEDS: MULTIVITAMIN with MINERAL TABLET. PO SCH (13:03)
--- NOTE | 2017-04-30 15:03 | PDOC ---
SURGICAL PROGRESS NOTE Subjective Pt mohit some PO, without new c/o Vital Signs Vital Signs Date Time Temp Pulse Resp B/P (MAP) Pulse Ox O2 Delivery O2 Flow Rate FiO2 04/30/17 13:03 71 152/92 04/30/17 11:21 95.9 16 95 Room Air 95.9 04/30/17 08:00 10.0 I&O Intake and Output 04/30/17 07:00 Intake Total 691 ml Output Total 705 ml Balance -14 ml Intake Oral 200 ml IV Total 491 ml Output Urine Total 550 ml Emesis 100 ml Drainage Total 55 ml # Voids 2 General: Alert, Oriented X3, Cooperative, No acute distress Abdomen: Soft, No tenderness Labs Laboratory Tests Test 04/29/17 05:40 04/29/17 07:00 04/30/17 05:05 Sodium Level 133 mmol/L (136-145) Potassium Level 4.2 mmol/L (3.5-5.1) Chloride Level 102 mmol/L (98-107) Carbon Dioxide Level 26 mmol/L (21-32) Anion Gap 5 (6-14) Blood Urea Nitrogen 11 mg/dL (8-26) Creatinine 0.8 mg/dL (0.7-1.3) Estimated GFR (Cockcroft-Gault) 93.5 Glucose Level 122 mg/dL (70-99) Calcium Level 8.2 mg/dL (8.5-10.1) Phosphorus Level 3.6 mg/dL (2.6-4.7) Magnesium Level 1.7 mg/dL (1.8-2.4) Clostridium difficile Toxin (PCR) Negative (Negative) White Blood Count 11.7 x10^3/uL (4.0-11.0) Red Blood Count 3.98 x10^6/uL (4.30-5.70) Hemoglobin 13.2 g/dL (13.0-17.5) Hematocrit 38.6 % (39.0-53.0) Mean Corpuscular Volume 97 fL (79-100) Mean Corpuscular Hemoglobin 33 pg (25-35) Mean Corpuscular Hemoglobin Concent 34 g/dL (31-37) Red Cell Distribution Width 13.2 % (11.5-14.5) Platelet Count 394 x10^3/uL (140-400) Neutrophils (%) (Auto) 72 % (31-73) Lymphocytes (%) (Auto) 17 % (24-48) Monocytes (%) (Auto) 8 % (0-9) Eosinophils (%) (Auto) 2 % (0-3) Basophils (%) (Auto) 1 % (0-3) Neutrophils # (Auto) 8.4 x10^3uL (1.8-7.7) Lymphocytes # (Auto) 2.0 x10^3/uL (1.0-4.8) Monocytes # (Auto) 1.0 x10^3/uL (0.0-1.1) Eosinophils # (Auto) 0.2 x10^3/uL (0.0-0.7) Basophils # (Auto) 0.1 x10^3/uL (0.0-0.2) Laboratory Tests Test 04/30/17 05:05 White Blood Count 11.7 x10^3/uL (4.0-11.0) Red Blood Count 3.98 x10^6/uL (4.30-5.70) Hemoglobin 13.2 g/dL (13.0-17.5) Hematocrit 38.6 % (39.0-53.0) Mean Corpuscular Volume 97 fL (79-100) Mean Corpuscular Hemoglobin 33 pg (25-35) Mean Corpuscular Hemoglobin Concent 34 g/dL (31-37) Red Cell Distribution Width 13.2 % (11.5-14.5) Platelet Count 394 x10^3/uL (140-400) Neutrophils (%) (Auto) 72 % (31-73) Lymphocytes (%) (Auto) 17 % (24-48) Monocytes (%) (Auto) 8 % (0-9) Eosinophils (%) (Auto) 2 % (0-3) Basophils (%) (Auto) 1 % (0-3) Neutrophils # (Auto) 8.4 x10^3uL (1.8-7.7) Lymphocytes # (Auto) 2.0 x10^3/uL (1.0-4.8) Monocytes # (Auto) 1.0 x10^3/uL (0.0-1.1) Eosinophils # (Auto) 0.2 x10^3/uL (0.0-0.7) Basophils # (Auto) 0.1 x10^3/uL (0.0-0.2) Problem List Problems Medical Problems: (1) ETOH abuse Status: Acute Assessment/Plan ileus vs SBO cont supportive care no immediate surgical plans Problems: JAYCEE RAMIREZ MD Apr 30, 2017 15:03
[2017-04-30 16:54] VITALS: BP 126/82
[2017-04-30 19:00] VITALS: BP 141/83
[2017-04-30] MEDS ORDERED: DEXTROSE 70% IV SCH ×10 (22:00)
[2017-04-30] MEDS ORDERED: AMINO ACIDS IV SCH ×10 (22:00)
[2017-04-30] MEDS ORDERED: TOTAL PARENTERAL NUTRITION IV SCH ×10 (22:00)
[2017-04-30] MEDS ORDERED: [UNRECOGNIZED DRUG - OTHER] IV SCH ×10 (22:00)
[2017-04-30 23:00] VITALS: BP 143/81
[2017-05-01 03:23] VITALS: BP 106/70
[2017-05-01 07:00] VITALS: BP 117/72
[2017-05-01] MEDS ORDERED: CONTRAST GIVEN MC PRN ×2 (07:00→09:15)
[2017-05-01] MEDS ORDERED: IOHEXOL 350 MG/ML 100 ML VIAL. PO ONE (07:15)
[2017-05-01] MEDS: LACTOBACILLUS RHAMNOSUS GG 1 CAPSULE. PO SCH ×2 (09:00→18:26)
[2017-05-01] MEDS ORDERED: IOHEXOL 300 MG/ML 100ML VIAL. PO ONE (09:00)
[2017-05-01] MEDS: FAMOTIDINE 20 MG TABLET. PO SCH ×3 (09:00→19:53)
--- NOTE | 2017-05-01 11:09 | PDOC ---
Provider Note Provider Note SURG Ry Díaz pt in X ray for SBFT await those results NIMA MURO MD May 01, 2017 11:09
--- NOTE | 2017-05-01 13:51 | PDOC ---
PROGRESS NOTES Chief Complaint Chief Complaint acute abdominal pain with acute appendicitis s/p open appendectomy Persistent ileus in an alcoholic Metabolic enceph resolved ETOH abuse mild COPD, hyperlipidemia BPH hypophosphatemia mild malnutrition post op sbo vs ileus anemia post 1 u PRBC during sx History of Present Illness History of Present Illness Asleep did not awaken Just had small bowel series today by GS - results pending PLAN: COnt TPN and liq diet for now Supportive care ff up small bowel results Vitals Vitals Vital Signs Date Time Temp Pulse Resp B/P (MAP) Pulse Ox O2 Delivery O2 Flow Rate FiO2 05/01/17 07:00 98.8 77 18 117/72 (87) 96 Room Air 98.8 04/30/17 08:00 10.0 Physical Exam General: Alert, Oriented X3, Cooperative, No acute distress Heart: Regular rate, Normal S1, Normal S2 Lungs: Clear Abdomen: Soft, No tenderness Extremities: No clubbing, No cyanosis Skin: No rashes, No breakdown Review of Systems Review of Systems sleep Assessment and Plan Assessmemt and Plan Problems Medical Problems: (1) ETOH abuse Status: Acute Problems: Comment Review of Relevant I have reviewed the following items nika (where applicable) has been applied. Labs Laboratory Tests Test 04/30/17 05:05 White Blood Count 11.7 x10^3/uL (4.0-11.0) Red Blood Count 3.98 x10^6/uL (4.30-5.70) Hemoglobin 13.2 g/dL (13.0-17.5) Hematocrit 38.6 % (39.0-53.0) Mean Corpuscular Volume 97 fL (79-100) Mean Corpuscular Hemoglobin 33 pg (25-35) Mean Corpuscular Hemoglobin Concent 34 g/dL (31-37) Red Cell Distribution Width 13.2 % (11.5-14.5) Platelet Count 394 x10^3/uL (140-400) Neutrophils (%) (Auto) 72 % (31-73) Lymphocytes (%) (Auto) 17 % (24-48) Monocytes (%) (Auto) 8 % (0-9) Eosinophils (%) (Auto) 2 % (0-3) Basophils (%) (Auto) 1 % (0-3) Neutrophils # (Auto) 8.4 x10^3uL (1.8-7.7) Lymphocytes # (Auto) 2.0 x10^3/uL (1.0-4.8) Monocytes # (Auto) 1.0 x10^3/uL (0.0-1.1) Eosinophils # (Auto) 0.2 x10^3/uL (0.0-0.7) Basophils # (Auto) 0.1 x10^3/uL (0.0-0.2) Medications Current Medications Sodium Chloride 1,000 ml @ 1,000 mls/hr 1X ONCE IV Last administered on 04/18 17:14; Start 04/18/17 at 17:00; Stop 04/18/17 at 17:59; Status DC Metronidazole 100 ml @ 100 mls/hr Q8HRS IV Last administered on 04/29/17 05: 39; Start 04/18/17 at 23:00; Stop 04/29/17 at 12:28; Status DC Piperacillin Sod/ Tazobactam Sod 3.375 gm/Dextrose 50 ml @ 100 mls/hr 1X ONCE IV ; Start 04/18/17 at 17:15; Stop 04/18/17 at 17:44; Status UNV Piperacillin Sod/ Tazobactam Sod (Zosyn) 3.375 gm 1X ONCE IVP Last administered on 04/18/17 17:41; Start 04/18/17 at 17:15; Stop 04/18/17 at 17 :16; Status DC Metronidazole 100 ml @ 100 mls/hr 1X ONCE IV ; Start 04/18/17 at 17:15; Stop 04/18/17 at 18:14; Status DC Sevoflurane (Ultane) 60 ml STK-MED ONCE IH ; Start 04/18/17 at 17:36; Stop at 17:37; Status DC Fentanyl Citrate (Fentanyl 2ml Vial) 100 mcg STK-MED ONCE .ROUTE ; Start at 17:36; Stop 04/18/17 at 17:37; Status DC Neostigmine Methylsulfate (Bloxiverz) 10 mg STK-MED ONCE .ROUTE ; Start at 17:36; Stop 04/18/17 at 17:37; Status DC Succinylcholine Chloride (Anectine) 200 mg STK-MED ONCE .ROUTE ; Start at 17:36; Stop 04/18/17 at 17:37; Status DC Glycopyrrolate (Robinul) 1 mg STK-MED ONCE .ROUTE ; Start 04/18/17 at 17:37; Stop 04/18/17 at 17:38; Status DC Rocuronium [place] (Zemuron) 50 mg STK-MED ONCE .ROUTE ; Start 04/18/17 at 17: 37; Stop 04/18/17 at 17:38; Status DC Propofol 20 ml @ As Directed STK-MED ONCE IV ; Start 04/18/17 at 17:37; Stop 04/18/17 at 17:38; Status DC Lidocaine HCl (Lidocaine Pf 2% Vial) 5 ml STK-MED ONCE .ROUTE ; Start 04/18/17 at 17:37; Stop 04/18/17 at 17:38; Status DC Dexamethasone Sodium Phosphate (Decadron) 20 mg STK-MED ONCE .ROUTE ; Start at 17:37; Stop 04/18/17 at 17:38; Status DC Ondansetron HCl (Zofran) 4 mg STK-MED ONCE .ROUTE ; Start 04/18/17 at 17:37; Stop 04/18/17 at 17:38; Status DC Tamsulosin HCl (Flomax) 0.4 mg DAILY PO Last administered on 04/30/17 09:54; Start 04/19/17 at 09:00; Stop 04/30/17 at 11:29; Status DC Losartan Potassium (Cozaar) 50 mg DAILY PO Last administered on 04/30/17 09: 54; Start 04/19/17 at 09:00; Stop 04/30/17 at 11:35; Status DC Multivitamins 10 ml/Thiamine HCl 100 mg/Ringer's Solution 1,011 ml @ 250 mls/ hr 1X ONCE IV Last administered on 04/19/17 01:24; Start 04/18/17 at 19:00 ; Stop 04/18/17 at 23:02; Status DC Ondansetron HCl (Zofran) 4 mg PRN Q6HRS PRN IV NAUSEA/VOMITING; Start at 19:00; Stop 04/18/17 at 22:00; Status DC Fentanyl Citrate (Fentanyl 2ml Vial) 25 mcg PRN Q5MIN PRN IV MILD PAIN; Start 04/18/17 at 19:00; Stop 04/18/17 at 22:00; Status DC Fentanyl Citrate (Fentanyl 2ml Vial) 50 mcg PRN Q5MIN PRN IV MODERATE PAIN; Start 04/18/17 at 19:00; Stop 04/18/17 at 22:00; Status DC Morphine Sulfate 1 mg PRN Q10MIN PRN IV SEVERE PAIN; Start 04/18/17 at 19:00; Stop 04/18/17 at 22:00; Status DC Ringer's Solution 1,000 ml @ 30 mls/hr Q24H IV ; Start 04/18/17 at 18:50; Stop 04/19/17 at 06:49; Status DC Lidocaine HCl (Xylocaine-Mpf 1% Vial) 2 ml 1X PRN PRN ID IV START; Start 04/18 at 19:00; Stop 04/18/17 at 22:00; Status DC Hydromorphone HCl (Dilaudid) 0.5 mg PRN Q10MIN PRN IV SEV PAIN, Second choice; Start 04/18/17 at 19:00; Stop 04/18/17 at 22:00; Status DC Prochlorperazine Edisylate (Compazine) 5 mg PACU PRN PRN IV NAUSEA, MRX1; Start 04/18/17 at 19:00; Stop 04/18/17 at 22:00; Status DC Bupivacaine HCl/ Epinephrine Bitart (Sensorcain-Mpf Epi 0.5%-[id number]) 30 ml STK -MED ONCE .ROUTE ; Start 04/18/17 at 19:16; Stop 04/18/17 at 19:17; Status DC Fentanyl Citrate (Fentanyl 2ml Vial) 100 mcg STK-MED ONCE .ROUTE ; Start at 19:49; Stop 04/18/17 at 19:50; Status DC Phenylephrine HCl 1 mg STK-MED ONCE IV ; Start 04/18/17 at 20:04; Stop at 20:05; Status DC Cellulose 1 each STK-MED ONCE .ROUTE Last administered on 04/18/17t 21:07; Start 04/18/17 at 20:35; Stop 04/18/17 at 20:36; Status DC Cellulose 1 each STK-MED ONCE .ROUTE ; Start 04/18/17 at 21:26; Stop 04/18/17 at 21:27; Status DC Hydromorphone HCl 30 ml @ 0 mls/hr CONT PRN PRN IV PROTOCOL Last administered on 04/18/17 23:53; Start 04/18/17 at 22:30; Stop 04/21/17 at 09:03; Status DC Morphine Sulfate 2 mg STK-MED ONCE .ROUTE ; Start 04/18/17 at 22:47; Stop at 22:48; Status DC Ondansetron HCl (Zofran) 4 mg PRN Q6HRS PRN IV NAUSEA/VOMITING; Start at 23:00; Stop 04/19/17 at 06:00; Status DC Fentanyl Citrate (Fentanyl 2ml Vial) 25 mcg PRN Q5MIN PRN IV MILD PAIN; Start 04/18/17 at 23:00; Stop 04/19/17 at 01:45; Status DC Fentanyl Citrate (Fentanyl 2ml Vial) 50 mcg PRN Q5MIN PRN IV MODERATE PAIN; Start 04/18/17 at 23:00; Stop 04/19/17 at 01:45; Status DC Morphine Sulfate 1 mg PRN Q10MIN PRN IV SEVERE PAIN Last administered on 22:53; Start 04/18/17 at 23:00; Stop 04/19/17 at 01:45; Status DC Hydromorphone HCl (Dilaudid) 0.5 mg PRN Q10MIN PRN IV SEV PAIN, Second choice Last administered on 04/18/17 23:30; Start 04/18/17 at 23:00; Stop 04/19/17 at 01:45; Status DC Prochlorperazine Edisylate (Compazine) 5 mg PACU PRN PRN IV NAUSEA, MRX1 Last administered on 04/18/17 22:59; Start 04/18/17 at 23:00; Stop 04/19/17 at 01 :45; Status DC Albuterol/ Ipratropium (Duoneb) 3 ml 1X PACU PRN NEB SEE COMMENTS Last administered on 04/18/17 23:13; Start 04/18/17 at 23:15; Stop 04/19/17 at 23 :14; Status DC Hydralazine HCl (Apresoline) 10 mg 1X PACU PRN PO HYPERTENSION, SEE COMMENTS; Start 04/18/17 at 23:30; Stop 04/19/17 at 01:45; Status DC Labetalol HCl (Normodyne) 20 mg PRN Q2HR PRN IVP HYPERTENSION, SEE COMMENTS; Start 04/19/17 at 01:45; Stop 04/19/17 at 15:19; Status DC Acetaminophen (Tylenol) 650 mg PRN Q6HRS PRN PO FEVER; Start 04/19/17 at 15:30 Ondansetron HCl (Zofran) 4 mg PRN Q6HRS PRN IV NAUSEA/VOMITING Last administered on 04/28/17 19:19; Start 04/19/17 at 15:30 Morphine Sulfate 2 mg PRN Q2HR PRN IV PAIN; Start 04/19/17 at 15:30; Stop at 10:44; Status DC Tramadol HCl (Ultram) 50 mg PRN Q6HRS PRN PO PAIN; Start 04/19/17 at 15:30 Hydralazine HCl (Apresoline Inj) 10 mg PRN Q4HRS PRN IVP ELEVATED BP, SEE COMMENTS Last administered on 04/19/17 16:15; Start 04/19/17 at 15:30 Docusate Sodium (Colace) 100 mg PRN DAILY PRN PO CONSTIPATION; Start 04/19/17 at 15:30 Lorazepam (Ativan) 2 mg PRN Q4HRS PRN IV ANXIETY / AGITATION Last administered on 04/24/17 19:15; Start 04/19/17 at 15:30; Stop 04/25/17 at 14:58; Status DC Multivitamins 10 ml/Thiamine HCl 100 mg/Dextrose/ Lactated Ringer's 1,011 ml @ 100 mls/hr Q24H IV ; Start 04/19/17 at 16:00; Stop 04/19/17 at 16:00; Status DC Amino Acids/ Glycerin/ Electrolytes 1,000 ml @ 80 mls/hr [id number] IV Last administered on 04/26/17 05:35; Start 04/19/17 at 15:30; Stop 04/26/17 at 12 :24; Status DC Enoxaparin Sodium (Lovenox 40mg Syringe) 40 mg Q24H SQ Last administered on 13:36; Start 04/19/17 at 15:30; Stop 04/28/17 at 07:52; Status DC Famotidine (Pepcid Vial) 20 mg QHS IVP Last administered on 04/23/17 20:47; Start 04/19/17 at 21:00; Stop 04/24/17 at 15:06; Status DC Multivitamins 10 ml/Thiamine HCl 100 mg/Folic Acid 1 mg/Dextrose/ Lactated Ringer's 1,011.2 ml @ 100.02 mls/hr Q24H IV Last administered on 04/22/17 16 :55; Start 04/19/17 at 16:00; Stop 04/23/17 at 02:07; Status DC Sodium Phosphate 20 mmol/Dextrose 256.6667 ml @ 64.167 m... 1X ONCE IV Last administered on 04/20/17 09:03; Start 04/20/17 at 09:00; Stop 04/20/17 at 12 :59; Status DC Lorazepam (Ativan) 0.5 mg PRN 1X PRN IV ANXIETY / AGITATION Last administered on 04/21/17 02:00; Start 04/21/17 at 01:00; Stop 04/25/17 at 14:58; Status DC Diphenhydramine HCl (Benadryl) 25 mg PRN 1X PRN IVP INSOMNIA Last administered on 04/23/17 20:47; Start 04/21/17 at 01:00 Acetaminophen (Acetaminophen Supp) 650 mg PRN Q6HRS PRN TN MILD PAIN / TEMP; Start 04/21/17 at 01:00 Sodium Chloride 1,000 ml @ 75 mls/hr [id number] IV Last administered on 06:22; Start 04/21/17 at 09:15; Stop 04/24/17 at 16:57; Status DC Ciprofloxacin/ Dextrose 200 ml @ 200 mls/hr Q12HR IV Last administered on 09:29; Start 04/21/17 at 13:30; Stop 04/29/17 at 12:28; Status DC Lorazepam (Ativan) 1 mg PRN Q2HR PRN IV Agitation, Anxiety Last administered on 05/01/17 01:58; Start 04/21/17 at 15:30 Hydromorphone HCl (Dilaudid) 0.5 mg PRN Q4HRS PRN IVP SEVERE PAIN Last administered on 04/25/17 07:08; Start 04/22/17 at 11:45 Famotidine (Pepcid) 20 mg QHS PO Last administered on 04/27/17 21:11; Start 04/24/17 at 21:00; Stop 04/28/17 at 07:52; Status DC Lactobacillus Rhamnosus (Culturelle) 1 cap BID PO Last administered on 20:44; Start 04/24/17 at 21:00 Bisacodyl (Dulcolax Supp) 10 mg 1X ONCE TN Last administered on 04/25/17 12: 27; Start 04/25/17 at 11:00; Stop 04/25/17 at 11:01; Status DC Morphine Sulfate 2 mg PRN Q2HR PRN IV MODERATE PAIN Last administered on 00:06; Start 04/25/17 at 10:44 Info 1 each PRN DAILY PRN MC SEE COMMENTS Last administered on 04/30/17 11:58 ; Start 04/26/17 at 12:30 Sodium Chloride 90 meq/Potassium Chloride 50 meq/ Potassium Phosphate 13.6 mmol/ Magnesium Sulfate 10 meq/ Calcium Gluconate 10 meq/ Multivitamins 10 ml/Chromium / Copper/Manganese/ Seleni/Zn 1 ml/ Total Parenteral Nutrition/Amino Acids/ Dextrose/ Fat Emulsion Intravenous 1,512 ml @ 63 mls/hr TPN CONT IV Last administered on 04/26/17 22:13; Start 04/26/17 at 22:00; Stop 04/27/17 at 21 :59; Status DC Info 1 each PRN DAILY PRN MC SEE COMMENTS; Start 04/26/17 at 14:15; Status UNV Nicotine (Nicoderm Cq 21mg) 1 patch PRN DAILY PRN TD SMOKING CESSATION; Start 04/26/17 at 16:00 Sodium Chloride 90 meq/Potassium Chloride 50 meq/ Potassium Phosphate 13.6 mmol/ Magnesium Sulfate 10 meq/ Calcium Gluconate 10 meq/ Multivitamins 10 ml/Chromium / Copper/Manganese/ Seleni/Zn 1 ml/ Total Parenteral Nutrition/Amino Acids/ Dextrose/ Fat Emulsion Intravenous 1,512 ml @ 63 mls/hr TPN CONT IV Last administered on 04/27/17 22:50; Start 04/27/17 at 22:00; Stop 04/28/17 at 21 :59; Status DC Famotidine (Pepcid Vial) 20 mg QHS IVP Last administered on 04/29/17 20:55; Start 04/28/17 at 21:00; Stop 04/30/17 at 11:32; Status DC Sodium Chloride 90 meq/Potassium Chloride 50 meq/ Potassium Phosphate 13.6 mmol/ Magnesium Sulfate 10 meq/ Calcium Gluconate 10 meq/ Multivitamins 10 ml/Chromium / Copper/Manganese/ Seleni/Zn 1 ml/ Total Parenteral Nutrition/Amino Acids/ Dextrose/ Fat Emulsion Intravenous 1,512 ml @ 63 mls/hr TPN CONT IV Last administered on 04/28/17 20:12; Start 04/28/17 at 22:00; Stop 04/29/17 at 21 :59; Status DC Sodium Chloride 90 meq/Potassium Chloride 50 meq/ Potassium Phosphate 13.6 mmol/ Magnesium Sulfate 10 meq/ Calcium Gluconate 10 meq/ Multivitamins 10 ml/Chromium / Copper/Manganese/ Seleni/Zn 1 ml/ Total Parenteral Nutrition/Amino Acids/ Dextrose/ Fat Emulsion Intravenous 1,512 ml @ 63 mls/hr TPN CONT IV Last administered on 04/29/17 20:55; Start 04/29/17 at 22:00; Stop 04/30/17 at 21 :59; Status DC Magnesium Sulfate/ Dextrose 50 ml @ 25 mls/hr 1X ONCE IV Last administered on 04/29/17 13:32; Start 04/29/17 at 13:00; Stop 04/29/17 at 14:59; Status DC Bisacodyl (Dulcolax Supp) 10 mg DAILY TN Last administered on 04/30/17 09:53 ; Start 04/30/17 at 09:00 Aspirin (Arin Aspirin) 325 mg [id number] PO Last administered on 04/30/17 13 :03; Start 04/30/17 at 12:00 Tamsulosin HCl (Flomax) 0.4 mg QHS PO Last administered on 04/30/17 20:44; Start 04/30/17 at 21:00 Losartan Potassium (Cozaar) 100 mg DAILY PO ; Start 04/30/17 at 12:00 Famotidine (Pepcid) 20 mg BID PO Last administered on 04/30/17 20:44; Start 04/30/17 at 12:00 Multivitamins (Thera M Plus) 1 tab DAILY PO Last administered on 04/30/17 13: 03; Start 04/30/17 at 12:00 Sodium Chloride 90 meq/Potassium Chloride 50 meq/ Potassium Phosphate 13.6 mmol/ Magnesium Sulfate 10 meq/ Calcium Gluconate 10 meq/ Multivitamins 10 ml/Chromium / Copper/Manganese/ Seleni/Zn 1 ml/ Total Parenteral Nutrition/Amino Acids/ Dextrose/ Fat Emulsion Intravenous 1,512 ml @ 63 mls/hr TPN CONT IV Last administered on 04/30/17 20:50; Start 04/30/17 at 22:00; Stop 05/01/17 at 21 :59 Losartan Potassium (Cozaar) 50 mg 1X ONCE PO Last administered on 04/30/17 13:03; Start 04/30/17 at 12:30; Stop 04/30/17 at 12:31; Status DC Iohexol (Omnipaque 350 Mg/ml) 200 ml 1X ONCE PO Last administered on 07:15; Start 05/01/17 at 07:15; Stop 05/01/17 at 07:17; Status DC Info (Do NOT chart on this entry -- for MONITORING) 1 each PRN DAILY PRN MC SEE COMMENTS; Start 05/01/17 at 07:00; Stop 05/03/17 at 06:59; Status Cancel Iohexol (Omnipaque 300 Mg/ml) 300 ml 1X ONCE PO ; Start 05/01/17 at 09:00; Stop 05/01/17 at 09:02; Status DC Info (Do NOT chart on this entry -- for MONITORING) 1 each PRN DAILY PRN MC SEE COMMENTS; Start 05/01/17 at 09:15; Stop 05/03/17 at 09:14 Sodium Chloride 90 meq/Potassium Chloride 50 meq/ Potassium Phosphate 13.6 mmol/ Magnesium Sulfate 10 meq/ Calcium Gluconate 10 meq/ Multivitamins 10 ml/Chromium / Copper/Manganese/ Seleni/Zn 1 ml/ Total Parenteral Nutrition/Amino Acids/ Dextrose/ Fat Emulsion Intravenous 1,512 ml @ 63 mls/hr TPN CONT IV ; Start 05/01/17 at 22:00; Stop 05/02/17 at 21:59 Active Scripts Active Reported [Ranitidine] 150 150 Mg PO BID [Flomax] 0.4 0.4 Mg PO DAILY [Losartan] 100 100 Mg PO DAILY [Vitamin] one 1 Tab PO DAILY [Aspirin] 325 325 Mg PO DAILY Vitals/I & O Vital Sign - Last 24 Hours 04/30/17 04/30/17 04/30/17 05/01/17 16:54 19:00 23:00 03:23 Temp 97.5 96.6 97.5 98.1 97.5 96.6 97.5 98.1 Pulse 72 72 71 66 Resp 18 40 16 18 B/P (MAP) 126/82 (97) 141/83 (102) 143/81 (101) 106/70 (82) Pulse Ox 97 98 97 96 O2 Delivery Room Air Room Air Room Air Room Air 05/01/17 07:00 Temp 98.8 98.8 Pulse 77 Resp 18 B/P (MAP) 117/72 (87) Pulse Ox 96 O2 Delivery Room Air Intake and Output 04/30/17 04/30/17 05/01/17 15:00 23:00 07:00 Intake Total 640 ml 1200 ml 250 ml Balance 640 ml 1200 ml 250 ml KALYN LOPEZ MD May 01, 2017 13:51
[2017-05-01 15:00] VITALS: BP 132/83
--- NOTE | 2017-05-01 15:29 | RAD ---
SMALL BOWEL SERIES History: Small bowel obstruction Comparison: Recent abdomen radiographs 04/27/2017 Findings:Small bowel examination was performed. Serial imaging was performed after patient was given Omnipaque. There is again dilatation of the small bowel although contrast passed through the dilated segments of small bowel and eventually seen in the colon, some contrast in the colon at about 2 hours and 45 minutes. There are multiple skin clips present. Impression: 1.There is again small bowel dilatation although no evidence of obstruction as contrast is seen in the colon at about 2 hours and 45 minutes.
[2017-05-01] MEDS: MULTIVITAMIN with MINERAL TABLET. PO SCH (18:26)
[2017-05-01] MEDS: ASPIRIN 325 MG TABLET PO SCH (18:27)
[2017-05-01] MEDS: BISACODYL 10 MG SUPP.RECT. PR SCH (18:28)
[2017-05-01] MEDS: LOSARTAN POTASSIUM 50 MG TABLET. PO SCH (18:28)
[2017-05-01 19:00] VITALS: BP 133/75
[2017-05-01] MEDS: TAMSULOSIN 0.4 MG CAP.ER.24H. PO SCH (19:53)
[2017-05-01] MEDS: HYDROmorphone 2 MG/ML VIAL IVP PRN (19:54)
[2017-05-01] MEDS ORDERED: DEXTROSE 70% IV SCH ×10 (22:00)
[2017-05-01] MEDS ORDERED: TOTAL PARENTERAL NUTRITION IV SCH ×10 (22:00)
[2017-05-01] MEDS ORDERED: [UNRECOGNIZED DRUG - OTHER] IV SCH ×10 (22:00)
[2017-05-01] MEDS ORDERED: AMINO ACIDS IV SCH ×10 (22:00)
[2017-05-01 23:00] VITALS: BP 109/71
[2017-05-02 03:00] VITALS: BP 123/75
[2017-05-02 06:31] LABS: ALBUMIN 2.8 g/dL (3.4-5.0); ALBUMIN/GLOBULIN RATIO 0.8 (1.0-1.7); CALCIUM 8.3 mg/dL (8.5-10.1); CREATININE 0.8 mg/dL (0.7-1.3); GFR 93.5; PHOSPHORUS 3.9 mg/dL (2.6-4.7); POTASSIUM 4.4 mmol/L (3.5-5.1); TOTAL BILIRUBIN 0.3 mg/dL (0.2-1.0); TOTAL PROTEIN 6.1 g/dL (6.4-8.2)
[2017-05-02 07:00] VITALS: BP 135/75
[2017-05-02] MEDS: LACTOBACILLUS RHAMNOSUS GG 1 CAPSULE. PO SCH ×2 (08:21→20:27)
[2017-05-02] MEDS: BISACODYL 10 MG SUPP.RECT. PR SCH (08:21)
[2017-05-02] MEDS: ASPIRIN 325 MG TABLET PO SCH (08:21)
[2017-05-02] MEDS: MULTIVITAMIN with MINERAL TABLET. PO SCH (08:22)
[2017-05-02] MEDS: LOSARTAN POTASSIUM 50 MG TABLET. PO SCH (08:22)
--- NOTE | 2017-05-02 09:48 | PDOC ---
ARMANDO MCGEE DESIGN TECHNOLOGY TEACHER 05/02/17 0948: SURGICAL PROGRESS NOTE Subjective passing a lot of gas, some liquid taking some clears denies pain feels less bloated Vital Signs Vital Signs Date Time Temp Pulse Resp B/P (MAP) Pulse Ox O2 Delivery O2 Flow Rate FiO2 05/02/17 08:22 69 135/75 05/02/17 07:00 98.0 18 98 Room Air 98.0 05/01/17 08:00 10.0 I&O Intake and Output 05/02/17 07:00 Intake Total 220 ml Output Total 300 ml Balance -80 ml Intake Oral 220 ml Output Urine Total 300 ml # Voids 4 General: Alert, Oriented X3, Cooperative, No acute distress Abdomen: Soft, Other (less distended, nontender, incision c/d/i, no erythema) Labs Laboratory Tests Test 05/02/17 06:00 Sodium Level 136 mmol/L (136-145) Potassium Level 4.4 mmol/L (3.5-5.1) Chloride Level 105 mmol/L (98-107) Carbon Dioxide Level 21 mmol/L (21-32) Anion Gap 10 (6-14) Blood Urea Nitrogen 18 mg/dL (8-26) Creatinine 0.8 mg/dL (0.7-1.3) Estimated GFR (Cockcroft-Gault) 93.5 BUN/Creatinine Ratio 23 (6-20) Glucose Level 124 mg/dL (70-99) Calcium Level 8.3 mg/dL (8.5-10.1) Phosphorus Level 3.9 mg/dL (2.6-4.7) Magnesium Level 2.0 mg/dL (1.8-2.4) Total Bilirubin 0.3 mg/dL (0.2-1.0) Aspartate Amino Transf (AST/SGOT) 19 U/L (15-37) Alanine Aminotransferase (ALT/SGPT) 34 U/L (16-63) Alkaline Phosphatase 65 U/L (46-116) Total Protein 6.1 g/dL (6.4-8.2) Albumin 2.8 g/dL (3.4-5.0) Albumin/Globulin Ratio 0.8 (1.0-1.7) Laboratory Tests Test 05/02/17 06:00 Sodium Level 136 mmol/L (136-145) Potassium Level 4.4 mmol/L (3.5-5.1) Chloride Level 105 mmol/L (98-107) Carbon Dioxide Level 21 mmol/L (21-32) Anion Gap 10 (6-14) Blood Urea Nitrogen 18 mg/dL (8-26) Creatinine 0.8 mg/dL (0.7-1.3) Estimated GFR (Cockcroft-Gault) 93.5 BUN/Creatinine Ratio 23 (6-20) Glucose Level 124 mg/dL (70-99) Calcium Level 8.3 mg/dL (8.5-10.1) Phosphorus Level 3.9 mg/dL (2.6-4.7) Magnesium Level 2.0 mg/dL (1.8-2.4) Total Bilirubin 0.3 mg/dL (0.2-1.0) Aspartate Amino Transf (AST/SGOT) 19 U/L (15-37) Alanine Aminotransferase (ALT/SGPT) 34 U/L (16-63) Alkaline Phosphatase 65 U/L (46-116) Total Protein 6.1 g/dL (6.4-8.2) Albumin 2.8 g/dL (3.4-5.0) Albumin/Globulin Ratio 0.8 (1.0-1.7) Problem List Problems Medical Problems: (1) ETOH abuse Status: Acute Assessment/Plan no obstruction on SBFT now with more flatus and stool---clears today,possibly advance tomorrow Problems: ANA PABON MD 05/02/17 1205: SURGICAL PROGRESS NOTE Assessment/Plan agree with above Problems: ARMANDO MCGEE APRN May 02, 2017 09:48 ANA PABON MD May 02, 2017 12:05
--- NOTE | 2017-05-02 09:51 | PDOC ---
PROGRESS NOTES Chief Complaint Chief Complaint acute abdominal pain with acute appendicitis s/p open appendectomy Persistent ileus in an alcoholic Metabolic enceph resolved ETOH abuse mild COPD, hyperlipidemia BPH hypophosphatemia mild malnutrition post op sbo vs ileus anemia post 1 u PRBC during sx History of Present Illness History of Present Illness Small bowel series shows persistent ileus but no obstruction Pt feels like he is getting better, at least not worse STill on tPN an dlytes and BS ok VS ok PAssing gas and stool sometimes On liquid diet - slow intake ABd distended stable, hypoactive mo guarding I PLAN: COnt TPN and liq diet for now Supportive care Diet per GS I did discuss with pt and burke possible lTAC screen if this will take longer sw CONSULT Vitals Vitals Vital Signs Date Time Temp Pulse Resp B/P (MAP) Pulse Ox O2 Delivery O2 Flow Rate FiO2 05/02/17 08:22 69 135/75 05/02/17 07:00 98.0 18 98 Room Air 98.0 05/01/17 08:00 10.0 Physical Exam General: Alert, Oriented X3, Cooperative, No acute distress Heart: Regular rate, Normal S1, Normal S2 Lungs: Clear Abdomen: Soft, Other (less distended, nontender, incision c/d/i, no erythema) Extremities: No clubbing, No cyanosis Skin: No rashes, No breakdown Labs LABS Laboratory Tests Test 05/02/17 06:00 Sodium Level 136 mmol/L (136-145) Potassium Level 4.4 mmol/L (3.5-5.1) Chloride Level 105 mmol/L (98-107) Carbon Dioxide Level 21 mmol/L (21-32) Anion Gap 10 (6-14) Blood Urea Nitrogen 18 mg/dL (8-26) Creatinine 0.8 mg/dL (0.7-1.3) Estimated GFR (Cockcroft-Gault) 93.5 BUN/Creatinine Ratio 23 (6-20) Glucose Level 124 mg/dL (70-99) Calcium Level 8.3 mg/dL (8.5-10.1) Phosphorus Level 3.9 mg/dL (2.6-4.7) Magnesium Level 2.0 mg/dL (1.8-2.4) Total Bilirubin 0.3 mg/dL (0.2-1.0) Aspartate Amino Transf (AST/SGOT) 19 U/L (15-37) Alanine Aminotransferase (ALT/SGPT) 34 U/L (16-63) Alkaline Phosphatase 65 U/L (46-116) Total Protein 6.1 g/dL (6.4-8.2) Albumin 2.8 g/dL (3.4-5.0) Albumin/Globulin Ratio 0.8 (1.0-1.7) Review of Systems Review of Systems abd distention, minimal pain, no soa, cp, etc Assessment and Plan Assessmemt and Plan Problems Medical Problems: (1) ETOH abuse Status: Acute Problems: Comment Review of Relevant I have reviewed the following items nika (where applicable) has been applied. Labs Laboratory Tests Test 05/02/17 06:00 Sodium Level 136 mmol/L (136-145) Potassium Level 4.4 mmol/L (3.5-5.1) Chloride Level 105 mmol/L (98-107) Carbon Dioxide Level 21 mmol/L (21-32) Anion Gap 10 (6-14) Blood Urea Nitrogen 18 mg/dL (8-26) Creatinine 0.8 mg/dL (0.7-1.3) Estimated GFR (Cockcroft-Gault) 93.5 BUN/Creatinine Ratio 23 (6-20) Glucose Level 124 mg/dL (70-99) Calcium Level 8.3 mg/dL (8.5-10.1) Phosphorus Level 3.9 mg/dL (2.6-4.7) Magnesium Level 2.0 mg/dL (1.8-2.4) Total Bilirubin 0.3 mg/dL (0.2-1.0) Aspartate Amino Transf (AST/SGOT) 19 U/L (15-37) Alanine Aminotransferase (ALT/SGPT) 34 U/L (16-63) Alkaline Phosphatase 65 U/L (46-116) Total Protein 6.1 g/dL (6.4-8.2) Albumin 2.8 g/dL (3.4-5.0) Albumin/Globulin Ratio 0.8 (1.0-1.7) Laboratory Tests Test 05/02/17 06:00 Sodium Level 136 mmol/L (136-145) Potassium Level 4.4 mmol/L (3.5-5.1) Chloride Level 105 mmol/L (98-107) Carbon Dioxide Level 21 mmol/L (21-32) Anion Gap 10 (6-14) Blood Urea Nitrogen 18 mg/dL (8-26) Creatinine 0.8 mg/dL (0.7-1.3) Estimated GFR (Cockcroft-Gault) 93.5 BUN/Creatinine Ratio 23 (6-20) Glucose Level 124 mg/dL (70-99) Calcium Level 8.3 mg/dL (8.5-10.1) Phosphorus Level 3.9 mg/dL (2.6-4.7) Magnesium Level 2.0 mg/dL (1.8-2.4) Total Bilirubin 0.3 mg/dL (0.2-1.0) Aspartate Amino Transf (AST/SGOT) 19 U/L (15-37) Alanine Aminotransferase (ALT/SGPT) 34 U/L (16-63) Alkaline Phosphatase 65 U/L (46-116) Total Protein 6.1 g/dL (6.4-8.2) Albumin 2.8 g/dL (3.4-5.0) Albumin/Globulin Ratio 0.8 (1.0-1.7) Medications Current Medications Sodium Chloride 1,000 ml @ 1,000 mls/hr 1X ONCE IV Last administered on 04/18 17:14; Start 04/18/17 at 17:00; Stop 04/18/17 at 17:59; Status DC Metronidazole 100 ml @ 100 mls/hr Q8HRS IV Last administered on 04/29/17 05: 39; Start 04/18/17 at 23:00; Stop 04/29/17 at 12:28; Status DC Piperacillin Sod/ Tazobactam Sod 3.375 gm/Dextrose 50 ml @ 100 mls/hr 1X ONCE IV ; Start 04/18/17 at 17:15; Stop 04/18/17 at 17:44; Status UNV Piperacillin Sod/ Tazobactam Sod (Zosyn) 3.375 gm 1X ONCE IVP Last administered on 04/18/17 17:41; Start 04/18/17 at 17:15; Stop 04/18/17 at 17 :16; Status DC Metronidazole 100 ml @ 100 mls/hr 1X ONCE IV ; Start 04/18/17 at 17:15; Stop 04/18/17 at 18:14; Status DC Sevoflurane (Ultane) 60 ml STK-MED ONCE IH ; Start 04/18/17 at 17:36; Stop at 17:37; Status DC Fentanyl Citrate (Fentanyl 2ml Vial) 100 mcg STK-MED ONCE .ROUTE ; Start at 17:36; Stop 04/18/17 at 17:37; Status DC Neostigmine Methylsulfate (Bloxiverz) 10 mg STK-MED ONCE .ROUTE ; Start at 17:36; Stop 04/18/17 at 17:37; Status DC Succinylcholine Chloride (Anectine) 200 mg STK-MED ONCE .ROUTE ; Start at 17:36; Stop 04/18/17 at 17:37; Status DC Glycopyrrolate (Robinul) 1 mg STK-MED ONCE .ROUTE ; Start 04/18/17 at 17:37; Stop 04/18/17 at 17:38; Status DC Rocuronium Meade (Zemuron) 50 mg STK-MED ONCE .ROUTE ; Start 04/18/17 at 17: 37; Stop 04/18/17 at 17:38; Status DC Propofol 20 ml @ As Directed STK-MED ONCE IV ; Start 04/18/17 at 17:37; Stop 04/18/17 at 17:38; Status DC Lidocaine HCl (Lidocaine Pf 2% Vial) 5 ml STK-MED ONCE .ROUTE ; Start 04/18/17 at 17:37; Stop 04/18/17 at 17:38; Status DC Dexamethasone Sodium Phosphate (Decadron) 20 mg STK-MED ONCE .ROUTE ; Start at 17:37; Stop 04/18/17 at 17:38; Status DC Ondansetron HCl (Zofran) 4 mg STK-MED ONCE .ROUTE ; Start 04/18/17 at 17:37; Stop 04/18/17 at 17:38; Status DC Tamsulosin HCl (Flomax) 0.4 mg DAILY PO Last administered on 04/30/17 09:54; Start 04/19/17 at 09:00; Stop 04/30/17 at 11:29; Status DC Losartan Potassium (Cozaar) 50 mg DAILY PO Last administered on 04/30/17 09: 54; Start 04/19/17 at 09:00; Stop 04/30/17 at 11:35; Status DC Multivitamins 10 ml/Thiamine HCl 100 mg/Ringer's Solution 1,011 ml @ 250 mls/ hr 1X ONCE IV Last administered on 04/19/17t 01:24; Start 04/18/17 at 19:00 ; Stop 04/18/17 at 23:02; Status DC Ondansetron HCl (Zofran) 4 mg PRN Q6HRS PRN IV NAUSEA/VOMITING; Start at 19:00; Stop 04/18/17 at 22:00; Status DC Fentanyl Citrate (Fentanyl 2ml Vial) 25 mcg PRN Q5MIN PRN IV MILD PAIN; Start 04/18/17 at 19:00; Stop 04/18/17 at 22:00; Status DC Fentanyl Citrate (Fentanyl 2ml Vial) 50 mcg PRN Q5MIN PRN IV MODERATE PAIN; Start 04/18/17 at 19:00; Stop 04/18/17 at 22:00; Status DC Morphine Sulfate 1 mg PRN Q10MIN PRN IV SEVERE PAIN; Start 04/18/17 at 19:00; Stop 04/18/17 at 22:00; Status DC Ringer's Solution 1,000 ml @ 30 mls/hr Q24H IV ; Start 04/18/17 at 18:50; Stop 04/19/17 at 06:49; Status DC Lidocaine HCl (Xylocaine-Mpf 1% Vial) 2 ml 1X PRN PRN ID IV START; Start 04/18 at 19:00; Stop 04/18/17 at 22:00; Status DC Hydromorphone HCl (Dilaudid) 0.5 mg PRN Q10MIN PRN IV SEV PAIN, Second choice; Start 04/18/17 at 19:00; Stop 04/18/17 at 22:00; Status DC Prochlorperazine Edisylate (Compazine) 5 mg PACU PRN PRN IV NAUSEA, MRX1; Start 04/18/17 at 19:00; Stop 04/18/17 at 22:00; Status DC Bupivacaine HCl/ Epinephrine Bitart (Sensorcain-Mpf Epi 0.5%-1:[id number]) 30 ml STK -MED ONCE .ROUTE ; Start 04/18/17 at 19:16; Stop 04/18/17 at 19:17; Status DC Fentanyl Citrate (Fentanyl 2ml Vial) 100 mcg STK-MED ONCE .ROUTE ; Start at 19:49; Stop 04/18/17 at 19:50; Status DC Phenylephrine HCl 1 mg STK-MED ONCE IV ; Start 04/18/17 at 20:04; Stop at 20:05; Status DC Cellulose 1 each STK-MED ONCE .ROUTE Last administered on 04/18/17 21:07; Start 04/18/17 at 20:35; Stop 04/18/17 at 20:36; Status DC Cellulose 1 each STK-MED ONCE .ROUTE ; Start 04/18/17 at 21:26; Stop 04/18/17 at 21:27; Status DC Hydromorphone HCl 30 ml @ 0 mls/hr CONT PRN PRN IV PROTOCOL Last administered on 04/18/17 23:53; Start 04/18/17 at 22:30; Stop 04/21/17 at 09:03; Status DC Morphine Sulfate 2 mg STK-MED ONCE .ROUTE ; Start 04/18/17 at 22:47; Stop at 22:48; Status DC Ondansetron HCl (Zofran) 4 mg PRN Q6HRS PRN IV NAUSEA/VOMITING; Start at 23:00; Stop 04/19/17 at 06:00; Status DC Fentanyl Citrate (Fentanyl 2ml Vial) 25 mcg PRN Q5MIN PRN IV MILD PAIN; Start 04/18/17 at 23:00; Stop 04/19/17 at 01:45; Status DC Fentanyl Citrate (Fentanyl 2ml Vial) 50 mcg PRN Q5MIN PRN IV MODERATE PAIN; Start 04/18/17 at 23:00; Stop 04/19/17 at 01:45; Status DC Morphine Sulfate 1 mg PRN Q10MIN PRN IV SEVERE PAIN Last administered on 22:53; Start 04/18/17 at 23:00; Stop 04/19/17 at 01:45; Status DC Hydromorphone HCl (Dilaudid) 0.5 mg PRN Q10MIN PRN IV SEV PAIN, Second choice Last administered on 04/18/17 23:30; Start 04/18/17 at 23:00; Stop 04/19/17 at 01:45; Status DC Prochlorperazine Edisylate (Compazine) 5 mg PACU PRN PRN IV NAUSEA, MRX1 Last administered on 04/18/17 22:59; Start 04/18/17 at 23:00; Stop 04/19/17 at 01 :45; Status DC Albuterol/ Ipratropium (Duoneb) 3 ml 1X PACU PRN NEB SEE COMMENTS Last administered on 04/18/17 23:13; Start 04/18/17 at 23:15; Stop 04/19/17 at 23 :14; Status DC Hydralazine HCl (Apresoline) 10 mg 1X PACU PRN PO HYPERTENSION, SEE COMMENTS; Start 04/18/17 at 23:30; Stop 04/19/17 at 01:45; Status DC Labetalol HCl (Normodyne) 20 mg PRN Q2HR PRN IVP HYPERTENSION, SEE COMMENTS; Start 04/19/17 at 01:45; Stop 04/19/17 at 15:19; Status DC Acetaminophen (Tylenol) 650 mg PRN Q6HRS PRN PO FEVER; Start 04/19/17 at 15:30 Ondansetron HCl (Zofran) 4 mg PRN Q6HRS PRN IV NAUSEA/VOMITING Last administered on 04/28/17 19:19; Start 04/19/17 at 15:30 Morphine Sulfate 2 mg PRN Q2HR PRN IV PAIN; Start 04/19/17 at 15:30; Stop at 10:44; Status DC Tramadol HCl (Ultram) 50 mg PRN Q6HRS PRN PO PAIN; Start 04/19/17 at 15:30 Hydralazine HCl (Apresoline Inj) 10 mg PRN Q4HRS PRN IVP ELEVATED BP, SEE COMMENTS Last administered on 04/19/17 16:15; Start 04/19/17 at 15:30 Docusate Sodium (Colace) 100 mg PRN DAILY PRN PO CONSTIPATION; Start 04/19/17 at 15:30 Lorazepam (Ativan) 2 mg PRN Q4HRS PRN IV ANXIETY / AGITATION Last administered on 04/24/17 19:15; Start 04/19/17 at 15:30; Stop 04/25/17 at 14:58; Status DC Multivitamins 10 ml/Thiamine HCl 100 mg/Dextrose/ Lactated Ringer's 1,011 ml @ 100 mls/hr Q24H IV ; Start 04/19/17 at 16:00; Stop 04/19/17 at 16:00; Status DC Amino Acids/ Glycerin/ Electrolytes 1,000 ml @ 80 mls/hr [id number] IV Last administered on 04/26/17 05:35; Start 04/19/17 at 15:30; Stop 04/26/17 at 12 :24; Status DC Enoxaparin Sodium (Lovenox 40mg Syringe) 40 mg Q24H SQ Last administered on 13:36; Start 04/19/17 at 15:30; Stop 04/28/17 at 07:52; Status DC Famotidine (Pepcid Vial) 20 mg QHS IVP Last administered on 04/23/17 20:47; Start 04/19/17 at 21:00; Stop 04/24/17 at 15:06; Status DC Multivitamins 10 ml/Thiamine HCl 100 mg/Folic Acid 1 mg/Dextrose/ Lactated Ringer's 1,011.2 ml @ 100.02 mls/hr Q24H IV Last administered on 04/22/17 16 :55; Start 04/19/17 at 16:00; Stop 04/23/17 at 02:07; Status DC Sodium Phosphate 20 mmol/Dextrose 256.6667 ml @ 64.167 m... 1X ONCE IV Last administered on 04/20/17 09:03; Start 04/20/17 at 09:00; Stop 04/20/17 at 12 :59; Status DC Lorazepam (Ativan) 0.5 mg PRN 1X PRN IV ANXIETY / AGITATION Last administered on 04/21/17 02:00; Start 04/21/17 at 01:00; Stop 04/25/17 at 14:58; Status DC Diphenhydramine HCl (Benadryl) 25 mg PRN 1X PRN IVP INSOMNIA Last administered on 04/23/17 20:47; Start 04/21/17 at 01:00 Acetaminophen (Acetaminophen Supp) 650 mg PRN Q6HRS PRN IN MILD PAIN / TEMP; Start 04/21/17 at 01:00 Sodium Chloride 1,000 ml @ 75 mls/hr [id number] IV Last administered on 06:22; Start 04/21/17 at 09:15; Stop 04/24/17 at 16:57; Status DC Ciprofloxacin/ Dextrose 200 ml @ 200 mls/hr Q12HR IV Last administered on 09:29; Start 04/21/17 at 13:30; Stop 04/29/17 at 12:28; Status DC Lorazepam (Ativan) 1 mg PRN Q2HR PRN IV Agitation, Anxiety Last administered on 05/02/17 01:52; Start 04/21/17 at 15:30 Hydromorphone HCl (Dilaudid) 0.5 mg PRN Q4HRS PRN IVP SEVERE PAIN Last administered on 05/01/17 19:54; Start 04/22/17 at 11:45 Famotidine (Pepcid) 20 mg QHS PO Last administered on 04/27/17 21:11; Start 04/24/17 at 21:00; Stop 04/28/17 at 07:52; Status DC Lactobacillus Rhamnosus (Culturelle) 1 cap BID PO Last administered on 08:21; Start 04/24/17 at 21:00 Bisacodyl (Dulcolax Supp) 10 mg 1X ONCE IN Last administered on 04/25/17 12: 27; Start 04/25/17 at 11:00; Stop 04/25/17 at 11:01; Status DC Morphine Sulfate 2 mg PRN Q2HR PRN IV MODERATE PAIN Last administered on 00:06; Start 04/25/17 at 10:44 Info 1 each PRN DAILY PRN MC SEE COMMENTS Last administered on 04/30/17 11:58 ; Start 04/26/17 at 12:30 Sodium Chloride 90 meq/Potassium Chloride 50 meq/ Potassium Phosphate 13.6 mmol/ Magnesium Sulfate 10 meq/ Calcium Gluconate 10 meq/ Multivitamins 10 ml/Chromium / Copper/Manganese/ Seleni/Zn 1 ml/ Total Parenteral Nutrition/Amino Acids/ Dextrose/ Fat Emulsion Intravenous 1,512 ml @ 63 mls/hr TPN CONT IV Last administered on 04/26/17 22:13; Start 04/26/17 at 22:00; Stop 04/27/17 at 21 :59; Status DC Info 1 each PRN DAILY PRN MC SEE COMMENTS; Start 04/26/17 at 14:15; Status UNV Nicotine (Nicoderm Cq 21mg) 1 patch PRN DAILY PRN TD SMOKING CESSATION; Start 04/26/17 at 16:00 Sodium Chloride 90 meq/Potassium Chloride 50 meq/ Potassium Phosphate 13.6 mmol/ Magnesium Sulfate 10 meq/ Calcium Gluconate 10 meq/ Multivitamins 10 ml/Chromium / Copper/Manganese/ Seleni/Zn 1 ml/ Total Parenteral Nutrition/Amino Acids/ Dextrose/ Fat Emulsion Intravenous 1,512 ml @ 63 mls/hr TPN CONT IV Last administered on 04/27/17 22:50; Start 04/27/17 at 22:00; Stop 04/28/17 at 21 :59; Status DC Famotidine (Pepcid Vial) 20 mg QHS IVP Last administered on 04/29/17 20:55; Start 04/28/17 at 21:00; Stop 04/30/17 at 11:32; Status DC Sodium Chloride 90 meq/Potassium Chloride 50 meq/ Potassium Phosphate 13.6 mmol/ Magnesium Sulfate 10 meq/ Calcium Gluconate 10 meq/ Multivitamins 10 ml/Chromium / Copper/Manganese/ Seleni/Zn 1 ml/ Total Parenteral Nutrition/Amino Acids/ Dextrose/ Fat Emulsion Intravenous 1,512 ml @ 63 mls/hr TPN CONT IV Last administered on 04/28/17 20:12; Start 04/28/17 at 22:00; Stop 04/29/17 at 21 :59; Status DC Sodium Chloride 90 meq/Potassium Chloride 50 meq/ Potassium Phosphate 13.6 mmol/ Magnesium Sulfate 10 meq/ Calcium Gluconate 10 meq/ Multivitamins 10 ml/Chromium / Copper/Manganese/ Seleni/Zn 1 ml/ Total Parenteral Nutrition/Amino Acids/ Dextrose/ Fat Emulsion Intravenous 1,512 ml @ 63 mls/hr TPN CONT IV Last administered on 04/29/17 20:55; Start 04/29/17 at 22:00; Stop 04/30/17 at 21 :59; Status DC Magnesium Sulfate/ Dextrose 50 ml @ 25 mls/hr 1X ONCE IV Last administered on 04/29/17 13:32; Start 04/29/17 at 13:00; Stop 04/29/17 at 14:59; Status DC Bisacodyl (Dulcolax Supp) 10 mg DAILY IN Last administered on 05/02/17 08:21 ; Start 04/30/17 at 09:00 Aspirin (Arin Aspirin) 325 mg [id number] PO Last administered on 05/02/17 08 :21; Start 04/30/17 at 12:00 Tamsulosin HCl (Flomax) 0.4 mg QHS PO Last administered on 05/01/17 19:53; Start 04/30/17 at 21:00 Losartan Potassium (Cozaar) 100 mg DAILY PO Last administered on 05/02/17 08: 22; Start 04/30/17 at 12:00 Famotidine (Pepcid) 20 mg BID PO Last administered on 05/01/17 19:53; Start 04/30/17 at 12:00 Multivitamins (Thera M Plus) 1 tab DAILY PO Last administered on 05/02/17 08: 22; Start 04/30/17 at 12:00 Sodium Chloride 90 meq/Potassium Chloride 50 meq/ Potassium Phosphate 13.6 mmol/ Magnesium Sulfate 10 meq/ Calcium Gluconate 10 meq/ Multivitamins 10 ml/Chromium / Copper/Manganese/ Seleni/Zn 1 ml/ Total Parenteral Nutrition/Amino Acids/ Dextrose/ Fat Emulsion Intravenous 1,512 ml @ 63 mls/hr TPN CONT IV Last administered on 04/30/17 20:50; Start 04/30/17 at 22:00; Stop 05/01/17 at 21 :59; Status DC Losartan Potassium (Cozaar) 50 mg 1X ONCE PO Last administered on 04/30/17 13:03; Start 04/30/17 at 12:30; Stop 04/30/17 at 12:31; Status DC Iohexol (Omnipaque 350 Mg/ml) 200 ml 1X ONCE PO Last administered on 07:15; Start 05/01/17 at 07:15; Stop 05/01/17 at 07:17; Status DC Info (Do NOT chart on this entry -- for MONITORING) 1 each PRN DAILY PRN MC SEE COMMENTS; Start 05/01/17 at 07:00; Stop 05/03/17 at 06:59; Status Cancel Iohexol (Omnipaque 300 Mg/ml) 300 ml 1X ONCE PO ; Start 05/01/17 at 09:00; Stop 05/01/17 at 09:02; Status DC Info (Do NOT chart on this entry -- for MONITORING) 1 each PRN DAILY PRN MC SEE COMMENTS; Start 05/01/17 at 09:15; Stop 05/03/17 at 09:14 Sodium Chloride 90 meq/Potassium Chloride 50 meq/ Potassium Phosphate 13.6 mmol/ Magnesium Sulfate 10 meq/ Calcium Gluconate 10 meq/ Multivitamins 10 ml/Chromium / Copper/Manganese/ Seleni/Zn 1 ml/ Total Parenteral Nutrition/Amino Acids/ Dextrose/ Fat Emulsion Intravenous 1,512 ml @ 63 mls/hr TPN CONT IV Last administered on 05/01/17t 21:33; Start 05/01/17 at 22:00; Stop 05/02/17 at 21 :59 Active Scripts Active Reported [Ranitidine] 150 150 Mg PO BID [Flomax] 0.4 0.4 Mg PO DAILY [Losartan] 100 100 Mg PO DAILY [Vitamin] one 1 Tab PO DAILY [Aspirin] 325 325 Mg PO DAILY Vitals/I & O Vital Sign - Last 24 Hours 05/01/17 05/01/17 05/01/17 05/01/17 15:00 18:28 19:00 19:54 Temp 97.3 96.8 97.3 96.8 Pulse 84 84 75 Resp 20 20 20 B/P (MAP) 132/83 (99) 132/83 133/75 (94) Pulse Ox 95 98 95 O2 Delivery Room Air Room Air Room Air 05/01/17 05/01/17 05/01/17 05/02/17 20:00 20:24 23:00 03:00 Temp 97.3 97.3 97.3 97.3 Pulse 74 70 Resp 20 20 20 B/P (MAP) 109/71 (84) 123/75 (91) Pulse Ox 95 96 97 O2 Delivery Room Air Room Air Room Air Room Air 05/02/17 05/02/17 07:00 08:22 Temp 98.0 98.0 Pulse 69 69 Resp 18 B/P (MAP) 135/75 (95) 135/75 Pulse Ox 98 O2 Delivery Room Air Intake and Output 05/01/17 05/01/17 05/02/17 15:00 23:00 07:00 Intake Total 220 ml Output Total 300 ml Balance -80 ml KALYN LOPEZ MD May 02, 2017 09:51
[2017-05-02] MEDS: TPN PER PHARMACY MC PRN (10:34)
[2017-05-02 10:48] VITALS: BP 141/85
[2017-05-02 14:46] VITALS: BP 146/81
[2017-05-02 20:00] VITALS: BP 130/71
[2017-05-02] MEDS: TAMSULOSIN 0.4 MG CAP.ER.24H. PO SCH (20:27)
[2017-05-02] MEDS: FAMOTIDINE 20 MG TABLET. PO SCH (20:27)
[2017-05-02] MEDS ORDERED: DEXTROSE 70% IV SCH ×10 (22:00)
[2017-05-02] MEDS ORDERED: AMINO ACIDS IV SCH ×10 (22:00)
[2017-05-02] MEDS ORDERED: [UNRECOGNIZED DRUG - OTHER] IV SCH ×10 (22:00)
[2017-05-02] MEDS ORDERED: TOTAL PARENTERAL NUTRITION IV SCH ×10 (22:00)
[2017-05-02 23:30] VITALS: BP 129/74
[2017-05-03] VITALS (7 sets, daily range): BP systolic 117–151; BP diastolic 61–92
[2017-05-03] MEDS: BISACODYL 10 MG SUPP.RECT. PR SCH (09:00)
[2017-05-03] MEDS: FAMOTIDINE 20 MG TABLET. PO SCH ×2 (09:36→22:38)
[2017-05-03] MEDS: MULTIVITAMIN with MINERAL TABLET. PO SCH (09:36)
[2017-05-03] MEDS: ASPIRIN 325 MG TABLET PO SCH (09:36)
[2017-05-03] MEDS: LOSARTAN POTASSIUM 50 MG TABLET. PO SCH (09:39)
[2017-05-03] MEDS: LACTOBACILLUS RHAMNOSUS GG 1 CAPSULE. PO SCH ×2 (12:37→22:38)
--- NOTE | 2017-05-03 13:15 | PDOC ---
ARMANDO MCGEE CRISIS MANAGER 05/03/17 1315: SURGICAL PROGRESS NOTE Subjective had soft diet for lunch--tolerated well pain managed, reports minimal abdominal discomfort today + flatus Vital Signs Vital Signs Date Time Temp Pulse Resp B/P (MAP) Pulse Ox O2 Delivery O2 Flow Rate FiO2 05/03/17 97.7 67 15 125/74 (91) 98 Room Air 97.7 I&O Intake and Output 05/03/17 07:00 Intake Total 400 ml Output Total 100 ml Balance 300 ml Intake Oral 400 ml Urine/Stool Mix 100 ml # Bowel Movements 1 General: Alert, Oriented X3, Cooperative, No acute distress Abdomen: Soft, Other (mild distention, NTTP, incision c/d/i, no erythema) Labs Laboratory Tests Test 05/02/17 06:00 Sodium Level 136 mmol/L (136-145) Potassium Level 4.4 mmol/L (3.5-5.1) Chloride Level 105 mmol/L (98-107) Carbon Dioxide Level 21 mmol/L (21-32) Anion Gap 10 (6-14) Blood Urea Nitrogen 18 mg/dL (8-26) Creatinine 0.8 mg/dL (0.7-1.3) Estimated GFR (Cockcroft-Gault) 93.5 BUN/Creatinine Ratio 23 (6-20) Glucose Level 124 mg/dL (70-99) Calcium Level 8.3 mg/dL (8.5-10.1) Phosphorus Level 3.9 mg/dL (2.6-4.7) Magnesium Level 2.0 mg/dL (1.8-2.4) Total Bilirubin 0.3 mg/dL (0.2-1.0) Aspartate Amino Transf (AST/SGOT) 19 U/L (15-37) Alanine Aminotransferase (ALT/SGPT) 34 U/L (16-63) Alkaline Phosphatase 65 U/L (46-116) Total Protein 6.1 g/dL (6.4-8.2) Albumin 2.8 g/dL (3.4-5.0) Albumin/Globulin Ratio 0.8 (1.0-1.7) Problem List Problems Medical Problems: (1) ETOH abuse Status: Acute Assessment/Plan s/p appy dc planning Problems: ANA PABON MD 05/04/17 1054: SURGICAL PROGRESS NOTE Assessment/Plan Agree with above Problems: ARMANDO MCGEE APRN May 03, 2017 13:15 ANA PABON MD May 04, 2017 10:54
[2017-05-03] MEDS: TPN PER PHARMACY MC PRN (13:55)
--- NOTE | 2017-05-03 14:12 | PDOC ---
PROGRESS NOTES Chief Complaint Chief Complaint acute abdominal pain with acute appendicitis s/p open appendectomy Persistent ileus in an alcoholic Metabolic enceph resolved ETOH abuse mild COPD, hyperlipidemia BPH hypophosphatemia mild malnutrition post op sbo vs ileus anemia post 1 u PRBC during sx History of Present Illness History of Present Illness just as he is being screened for select, he is progressing now in his care up to GI soft today and tolerating well, looking good As per dc planning in the works PLAn: COnt gI soft Possible home in next 24-48 hrs Vitals Vitals Vital Signs Date Time Temp Pulse Resp B/P (MAP) Pulse Ox O2 Delivery O2 Flow Rate FiO2 05/03/17 11:17 97.7 67 15 125/74 (91) 98 Room Air 97.7 Physical Exam General: Alert, Oriented X3, Cooperative, No acute distress Heart: Regular rate, Normal S1, Normal S2 Lungs: Clear Abdomen: Soft, Other (mild distention, NTTP, incision c/d/i, no erythema) Extremities: No clubbing, No cyanosis Skin: No rashes, No breakdown Review of Systems Review of Systems denies 14 pt reviewed Assessment and Plan Assessmemt and Plan Problems Medical Problems: (1) ETOH abuse Status: Acute Problems: Comment Review of Relevant I have reviewed the following items nika (where applicable) has been applied. Labs Laboratory Tests Test 05/02/17 06:00 Sodium Level 136 mmol/L (136-145) Potassium Level 4.4 mmol/L (3.5-5.1) Chloride Level 105 mmol/L (98-107) Carbon Dioxide Level 21 mmol/L (21-32) Anion Gap 10 (6-14) Blood Urea Nitrogen 18 mg/dL (8-26) Creatinine 0.8 mg/dL (0.7-1.3) Estimated GFR (Cockcroft-Gault) 93.5 BUN/Creatinine Ratio 23 (6-20) Glucose Level 124 mg/dL (70-99) Calcium Level 8.3 mg/dL (8.5-10.1) Phosphorus Level 3.9 mg/dL (2.6-4.7) Magnesium Level 2.0 mg/dL (1.8-2.4) Total Bilirubin 0.3 mg/dL (0.2-1.0) Aspartate Amino Transf (AST/SGOT) 19 U/L (15-37) Alanine Aminotransferase (ALT/SGPT) 34 U/L (16-63) Alkaline Phosphatase 65 U/L (46-116) Total Protein 6.1 g/dL (6.4-8.2) Albumin 2.8 g/dL (3.4-5.0) Albumin/Globulin Ratio 0.8 (1.0-1.7) Medications Current Medications Sodium Chloride 1,000 ml @ 1,000 mls/hr 1X ONCE IV Last administered on 04/18 17:14; Start 04/18/17 at 17:00; Stop 04/18/17 at 17:59; Status DC Metronidazole 100 ml @ 100 mls/hr Q8HRS IV Last administered on 04/29/17 05: 39; Start 04/18/17 at 23:00; Stop 04/29/17 at 12:28; Status DC Piperacillin Sod/ Tazobactam Sod 3.375 gm/Dextrose 50 ml @ 100 mls/hr 1X ONCE IV ; Start 04/18/17 at 17:15; Stop 04/18/17 at 17:44; Status UNV Piperacillin Sod/ Tazobactam Sod (Zosyn) 3.375 gm 1X ONCE IVP Last administered on 04/18/17 17:41; Start 04/18/17 at 17:15; Stop 04/18/17 at 17 :16; Status DC Metronidazole 100 ml @ 100 mls/hr 1X ONCE IV ; Start 04/18/17 at 17:15; Stop 04/18/17 at 18:14; Status DC Sevoflurane (Ultane) 60 ml STK-MED ONCE IH ; Start 04/18/17 at 17:36; Stop at 17:37; Status DC Fentanyl Citrate (Fentanyl 2ml Vial) 100 mcg STK-MED ONCE .ROUTE ; Start at 17:36; Stop 04/18/17 at 17:37; Status DC Neostigmine Methylsulfate (Bloxiverz) 10 mg STK-MED ONCE .ROUTE ; Start at 17:36; Stop 04/18/17 at 17:37; Status DC Succinylcholine Chloride (Anectine) 200 mg STK-MED ONCE .ROUTE ; Start at 17:36; Stop 04/18/17 at 17:37; Status DC Glycopyrrolate (Robinul) 1 mg STK-MED ONCE .ROUTE ; Start 04/18/17 at 17:37; Stop 04/18/17 at 17:38; Status DC Rocuronium [place] (Zemuron) 50 mg STK-MED ONCE .ROUTE ; Start 04/18/17 at 17: 37; Stop 04/18/17 at 17:38; Status DC Propofol 20 ml @ As Directed STK-MED ONCE IV ; Start 04/18/17 at 17:37; Stop 04/18/17 at 17:38; Status DC Lidocaine HCl (Lidocaine Pf 2% Vial) 5 ml STK-MED ONCE .ROUTE ; Start 04/18/17 at 17:37; Stop 04/18/17 at 17:38; Status DC Dexamethasone Sodium Phosphate (Decadron) 20 mg STK-MED ONCE .ROUTE ; Start at 17:37; Stop 04/18/17 at 17:38; Status DC Ondansetron HCl (Zofran) 4 mg STK-MED ONCE .ROUTE ; Start 04/18/17 at 17:37; Stop 04/18/17 at 17:38; Status DC Tamsulosin HCl (Flomax) 0.4 mg DAILY PO Last administered on 04/30/17 09:54; Start 04/19/17 at 09:00; Stop 04/30/17 at 11:29; Status DC Losartan Potassium (Cozaar) 50 mg DAILY PO Last administered on 04/30/17 09: 54; Start 04/19/17 at 09:00; Stop 04/30/17 at 11:35; Status DC Multivitamins 10 ml/Thiamine HCl 100 mg/Ringer's Solution 1,011 ml @ 250 mls/ hr 1X ONCE IV Last administered on 04/19/17 01:24; Start 04/18/17 at 19:00 ; Stop 04/18/17 at 23:02; Status DC Ondansetron HCl (Zofran) 4 mg PRN Q6HRS PRN IV NAUSEA/VOMITING; Start at 19:00; Stop 04/18/17 at 22:00; Status DC Fentanyl Citrate (Fentanyl 2ml Vial) 25 mcg PRN Q5MIN PRN IV MILD PAIN; Start 04/18/17 at 19:00; Stop 04/18/17 at 22:00; Status DC Fentanyl Citrate (Fentanyl 2ml Vial) 50 mcg PRN Q5MIN PRN IV MODERATE PAIN; Start 04/18/17 at 19:00; Stop 04/18/17 at 22:00; Status DC Morphine Sulfate 1 mg PRN Q10MIN PRN IV SEVERE PAIN; Start 04/18/17 at 19:00; Stop 04/18/17 at 22:00; Status DC Ringer's Solution 1,000 ml @ 30 mls/hr Q24H IV ; Start 04/18/17 at 18:50; Stop 04/19/17 at 06:49; Status DC Lidocaine HCl (Xylocaine-Mpf 1% Vial) 2 ml 1X PRN PRN ID IV START; Start 04/18 at 19:00; Stop 04/18/17 at 22:00; Status DC Hydromorphone HCl (Dilaudid) 0.5 mg PRN Q10MIN PRN IV SEV PAIN, Second choice; Start 04/18/17 at 19:00; Stop 04/18/17 at 22:00; Status DC Prochlorperazine Edisylate (Compazine) 5 mg PACU PRN PRN IV NAUSEA, MRX1; Start 04/18/17 at 19:00; Stop 04/18/17 at 22:00; Status DC Bupivacaine HCl/ Epinephrine Bitart (Sensorcain-Mpf Epi 0.5%-[id number]) 30 ml STK -MED ONCE .ROUTE ; Start 04/18/17 at 19:16; Stop 04/18/17 at 19:17; Status DC Fentanyl Citrate (Fentanyl 2ml Vial) 100 mcg STK-MED ONCE .ROUTE ; Start at 19:49; Stop 04/18/17 at 19:50; Status DC Phenylephrine HCl 1 mg STK-MED ONCE IV ; Start 04/18/17 at 20:04; Stop at 20:05; Status DC Cellulose 1 each STK-MED ONCE .ROUTE Last administered on 04/18/17t 21:07; Start 04/18/17 at 20:35; Stop 04/18/17 at 20:36; Status DC Cellulose 1 each STK-MED ONCE .ROUTE ; Start 04/18/17 at 21:26; Stop 04/18/17 at 21:27; Status DC Hydromorphone HCl 30 ml @ 0 mls/hr CONT PRN PRN IV PROTOCOL Last administered on 04/18/17 23:53; Start 04/18/17 at 22:30; Stop 04/21/17 at 09:03; Status DC Morphine Sulfate 2 mg STK-MED ONCE .ROUTE ; Start 04/18/17 at 22:47; Stop at 22:48; Status DC Ondansetron HCl (Zofran) 4 mg PRN Q6HRS PRN IV NAUSEA/VOMITING; Start at 23:00; Stop 04/19/17 at 06:00; Status DC Fentanyl Citrate (Fentanyl 2ml Vial) 25 mcg PRN Q5MIN PRN IV MILD PAIN; Start 04/18/17 at 23:00; Stop 04/19/17 at 01:45; Status DC Fentanyl Citrate (Fentanyl 2ml Vial) 50 mcg PRN Q5MIN PRN IV MODERATE PAIN; Start 04/18/17 at 23:00; Stop 04/19/17 at 01:45; Status DC Morphine Sulfate 1 mg PRN Q10MIN PRN IV SEVERE PAIN Last administered on 22:53; Start 04/18/17 at 23:00; Stop 04/19/17 at 01:45; Status DC Hydromorphone HCl (Dilaudid) 0.5 mg PRN Q10MIN PRN IV SEV PAIN, Second choice Last administered on 04/18/17 23:30; Start 04/18/17 at 23:00; Stop 04/19/17 at 01:45; Status DC Prochlorperazine Edisylate (Compazine) 5 mg PACU PRN PRN IV NAUSEA, MRX1 Last administered on 04/18/17 22:59; Start 04/18/17 at 23:00; Stop 04/19/17 at 01 :45; Status DC Albuterol/ Ipratropium (Duoneb) 3 ml 1X PACU PRN NEB SEE COMMENTS Last administered on 04/18/17 23:13; Start 04/18/17 at 23:15; Stop 04/19/17 at 23 :14; Status DC Hydralazine HCl (Apresoline) 10 mg 1X PACU PRN PO HYPERTENSION, SEE COMMENTS; Start 04/18/17 at 23:30; Stop 04/19/17 at 01:45; Status DC Labetalol HCl (Normodyne) 20 mg PRN Q2HR PRN IVP HYPERTENSION, SEE COMMENTS; Start 04/19/17 at 01:45; Stop 04/19/17 at 15:19; Status DC Acetaminophen (Tylenol) 650 mg PRN Q6HRS PRN PO FEVER Last administered on 21:59; Start 04/19/17 at 15:30 Ondansetron HCl (Zofran) 4 mg PRN Q6HRS PRN IV NAUSEA/VOMITING Last administered on 04/28/17 19:19; Start 04/19/17 at 15:30 Morphine Sulfate 2 mg PRN Q2HR PRN IV PAIN; Start 04/19/17 at 15:30; Stop at 10:44; Status DC Tramadol HCl (Ultram) 50 mg PRN Q6HRS PRN PO PAIN Last administered on 21:59; Start 04/19/17 at 15:30 Hydralazine HCl (Apresoline Inj) 10 mg PRN Q4HRS PRN IVP ELEVATED BP, SEE COMMENTS Last administered on 04/19/17 16:15; Start 04/19/17 at 15:30 Docusate Sodium (Colace) 100 mg PRN DAILY PRN PO CONSTIPATION; Start 04/19/17 at 15:30 Lorazepam (Ativan) 2 mg PRN Q4HRS PRN IV ANXIETY / AGITATION Last administered on 04/24/17 19:15; Start 04/19/17 at 15:30; Stop 04/25/17 at 14:58; Status DC Multivitamins 10 ml/Thiamine HCl 100 mg/Dextrose/ Lactated Ringer's 1,011 ml @ 100 mls/hr Q24H IV ; Start 04/19/17 at 16:00; Stop 04/19/17 at 16:00; Status DC Amino Acids/ Glycerin/ Electrolytes 1,000 ml @ 80 mls/hr [id number] IV Last administered on 04/26/17 05:35; Start 04/19/17 at 15:30; Stop 04/26/17 at 12 :24; Status DC Enoxaparin Sodium (Lovenox 40mg Syringe) 40 mg Q24H SQ Last administered on 13:36; Start 04/19/17 at 15:30; Stop 04/28/17 at 07:52; Status DC Famotidine (Pepcid Vial) 20 mg QHS IVP Last administered on 04/23/17 20:47; Start 04/19/17 at 21:00; Stop 04/24/17 at 15:06; Status DC Multivitamins 10 ml/Thiamine HCl 100 mg/Folic Acid 1 mg/Dextrose/ Lactated Ringer's 1,011.2 ml @ 100.02 mls/hr Q24H IV Last administered on 04/22/17 16 :55; Start 04/19/17 at 16:00; Stop 04/23/17 at 02:07; Status DC Sodium Phosphate 20 mmol/Dextrose 256.6667 ml @ 64.167 m... 1X ONCE IV Last administered on 04/20/17 09:03; Start 04/20/17 at 09:00; Stop 04/20/17 at 12 :59; Status DC Lorazepam (Ativan) 0.5 mg PRN 1X PRN IV ANXIETY / AGITATION Last administered on 04/21/17 02:00; Start 04/21/17 at 01:00; Stop 04/25/17 at 14:58; Status DC Diphenhydramine HCl (Benadryl) 25 mg PRN 1X PRN IVP INSOMNIA Last administered on 04/23/17 20:47; Start 04/21/17 at 01:00 Acetaminophen (Acetaminophen Supp) 650 mg PRN Q6HRS PRN MS MILD PAIN / TEMP; Start 04/21/17 at 01:00 Sodium Chloride 1,000 ml @ 75 mls/hr [id number] IV Last administered on 06:22; Start 04/21/17 at 09:15; Stop 04/24/17 at 16:57; Status DC Ciprofloxacin/ Dextrose 200 ml @ 200 mls/hr Q12HR IV Last administered on 09:29; Start 04/21/17 at 13:30; Stop 04/29/17 at 12:28; Status DC Lorazepam (Ativan) 1 mg PRN Q2HR PRN IV Agitation, Anxiety Last administered on 05/02/17 01:52; Start 04/21/17 at 15:30 Hydromorphone HCl (Dilaudid) 0.5 mg PRN Q4HRS PRN IVP SEVERE PAIN Last administered on 05/01/17 19:54; Start 04/22/17 at 11:45 Famotidine (Pepcid) 20 mg QHS PO Last administered on 04/27/17 21:11; Start 04/24/17 at 21:00; Stop 04/28/17 at 07:52; Status DC Lactobacillus Rhamnosus (Culturelle) 1 cap BID PO Last administered on 12:37; Start 04/24/17 at 21:00 Bisacodyl (Dulcolax Supp) 10 mg 1X ONCE MS Last administered on 04/25/17 12: 27; Start 04/25/17 at 11:00; Stop 04/25/17 at 11:01; Status DC Morphine Sulfate 2 mg PRN Q2HR PRN IV MODERATE PAIN Last administered on 00:06; Start 04/25/17 at 10:44 Info 1 each PRN DAILY PRN MC SEE COMMENTS Last administered on 05/03/17 13:55 ; Start 04/26/17 at 12:30 Sodium Chloride 90 meq/Potassium Chloride 50 meq/ Potassium Phosphate 13.6 mmol/ Magnesium Sulfate 10 meq/ Calcium Gluconate 10 meq/ Multivitamins 10 ml/Chromium / Copper/Manganese/ Seleni/Zn 1 ml/ Total Parenteral Nutrition/Amino Acids/ Dextrose/ Fat Emulsion Intravenous 1,512 ml @ 63 mls/hr TPN CONT IV Last administered on 04/26/17 22:13; Start 04/26/17 at 22:00; Stop 04/27/17 at 21 :59; Status DC Info 1 each PRN DAILY PRN MC SEE COMMENTS; Start 04/26/17 at 14:15; Status UNV Nicotine (Nicoderm Cq 21mg) 1 patch PRN DAILY PRN TD SMOKING CESSATION; Start 04/26/17 at 16:00 Sodium Chloride 90 meq/Potassium Chloride 50 meq/ Potassium Phosphate 13.6 mmol/ Magnesium Sulfate 10 meq/ Calcium Gluconate 10 meq/ Multivitamins 10 ml/Chromium / Copper/Manganese/ Seleni/Zn 1 ml/ Total Parenteral Nutrition/Amino Acids/ Dextrose/ Fat Emulsion Intravenous 1,512 ml @ 63 mls/hr TPN CONT IV Last administered on 04/27/17 22:50; Start 04/27/17 at 22:00; Stop 04/28/17 at 21 :59; Status DC Famotidine (Pepcid Vial) 20 mg QHS IVP Last administered on 04/29/17 20:55; Start 04/28/17 at 21:00; Stop 04/30/17 at 11:32; Status DC Sodium Chloride 90 meq/Potassium Chloride 50 meq/ Potassium Phosphate 13.6 mmol/ Magnesium Sulfate 10 meq/ Calcium Gluconate 10 meq/ Multivitamins 10 ml/Chromium / Copper/Manganese/ Seleni/Zn 1 ml/ Total Parenteral Nutrition/Amino Acids/ Dextrose/ Fat Emulsion Intravenous 1,512 ml @ 63 mls/hr TPN CONT IV Last administered on 04/28/17 20:12; Start 04/28/17 at 22:00; Stop 04/29/17 at 21 :59; Status DC Sodium Chloride 90 meq/Potassium Chloride 50 meq/ Potassium Phosphate 13.6 mmol/ Magnesium Sulfate 10 meq/ Calcium Gluconate 10 meq/ Multivitamins 10 ml/Chromium / Copper/Manganese/ Seleni/Zn 1 ml/ Total Parenteral Nutrition/Amino Acids/ Dextrose/ Fat Emulsion Intravenous 1,512 ml @ 63 mls/hr TPN CONT IV Last administered on 04/29/17 20:55; Start 04/29/17 at 22:00; Stop 04/30/17 at 21 :59; Status DC Magnesium Sulfate/ Dextrose 50 ml @ 25 mls/hr 1X ONCE IV Last administered on 04/29/17 13:32; Start 04/29/17 at 13:00; Stop 04/29/17 at 14:59; Status DC Bisacodyl (Dulcolax Supp) 10 mg DAILY MS Last administered on 05/03/17 09:00 ; Start 04/30/17 at 09:00 Aspirin (Arin Aspirin) 325 mg [id number] PO Last administered on 05/03/17 09 :36; Start 04/30/17 at 12:00 Tamsulosin HCl (Flomax) 0.4 mg QHS PO Last administered on 05/02/17 20:27; Start 04/30/17 at 21:00 Losartan Potassium (Cozaar) 100 mg DAILY PO Last administered on 05/03/17 09: 39; Start 04/30/17 at 12:00 Famotidine (Pepcid) 20 mg BID PO Last administered on 05/03/17 09:36; Start 04/30/17 at 12:00 Multivitamins (Thera M Plus) 1 tab DAILY PO Last administered on 05/03/17 09: 36; Start 04/30/17 at 12:00 Sodium Chloride 90 meq/Potassium Chloride 50 meq/ Potassium Phosphate 13.6 mmol/ Magnesium Sulfate 10 meq/ Calcium Gluconate 10 meq/ Multivitamins 10 ml/Chromium / Copper/Manganese/ Seleni/Zn 1 ml/ Total Parenteral Nutrition/Amino Acids/ Dextrose/ Fat Emulsion Intravenous 1,512 ml @ 63 mls/hr TPN CONT IV Last administered on 04/30/17 20:50; Start 04/30/17 at 22:00; Stop 05/01/17 at 21 :59; Status DC Losartan Potassium (Cozaar) 50 mg 1X ONCE PO Last administered on 04/30/17 13:03; Start 04/30/17 at 12:30; Stop 04/30/17 at 12:31; Status DC Iohexol (Omnipaque 350 Mg/ml) 200 ml 1X ONCE PO Last administered on 07:15; Start 05/01/17 at 07:15; Stop 05/01/17 at 07:17; Status DC Info (Do NOT chart on this entry -- for MONITORING) 1 each PRN DAILY PRN MC SEE COMMENTS; Start 05/01/17 at 07:00; Stop 05/03/17 at 06:59; Status Cancel Iohexol (Omnipaque 300 Mg/ml) 300 ml 1X ONCE PO ; Start 05/01/17 at 09:00; Stop 05/01/17 at 09:02; Status DC Info (Do NOT chart on this entry -- for MONITORING) 1 each PRN DAILY PRN MC SEE COMMENTS; Start 05/01/17 at 09:15; Stop 05/03/17 at 09:14; Status DC Sodium Chloride 90 meq/Potassium Chloride 50 meq/ Potassium Phosphate 13.6 mmol/ Magnesium Sulfate 10 meq/ Calcium Gluconate 10 meq/ Multivitamins 10 ml/Chromium / Copper/Manganese/ Seleni/Zn 1 ml/ Total Parenteral Nutrition/Amino Acids/ Dextrose/ Fat Emulsion Intravenous 1,512 ml @ 63 mls/hr TPN CONT IV Last administered on 05/01/17 21:33; Start 05/01/17 at 22:00; Stop 05/02/17 at 21 :59; Status DC Sodium Chloride 90 meq/Potassium Chloride 50 meq/ Potassium Phosphate 13.6 mmol/ Magnesium Sulfate 10 meq/ Calcium Gluconate 10 meq/ Multivitamins 10 ml/Chromium / Copper/Manganese/ Seleni/Zn 1 ml/ Total Parenteral Nutrition/Amino Acids/ Dextrose/ Fat Emulsion Intravenous 1,512 ml @ 63 mls/hr TPN CONT IV Last administered on 05/02/17 20:21; Start 05/02/17 at 22:00; Stop 05/03/17 at 21 :59 Sodium Chloride 90 meq/Potassium Chloride 50 meq/ Potassium Phosphate 13.6 mmol/ Magnesium Sulfate 10 meq/ Calcium Gluconate 10 meq/ Multivitamins 10 ml/Chromium / Copper/Manganese/ Seleni/Zn 1 ml/ Total Parenteral Nutrition/Amino Acids/ Dextrose/ Fat Emulsion Intravenous 1,512 ml @ 63 mls/hr TPN CONT IV ; Start 05/03/17 at 22:00; Stop 05/04/17 at 21:59 Active Scripts Active Reported [Ranitidine] 150 150 Mg PO BID [Flomax] 0.4 0.4 Mg PO DAILY [Losartan] 100 100 Mg PO DAILY [Vitamin] one 1 Tab PO DAILY [Aspirin] 325 325 Mg PO DAILY Vitals/I & O Vital Sign - Last 24 Hours 05/02/17 05/02/17 05/02/17 05/02/17 14:46 20:00 21:59 23:00 Temp 98.1 97.7 98.1 97.7 Pulse 66 66 Resp 20 20 20 B/P (MAP) 146/81 (102) 130/71 (90) Pulse Ox 98 98 O2 Delivery Room Air Room Air 05/02/17 05/03/17 05/03/17 05/03/17 23:30 03:25 07:44 09:39 Temp 97.9 97.8 98.1 97.9 97.8 98.1 Pulse 62 56 71 71 Resp 14 16 15 B/P (MAP) 129/74 (92) 117/66 (83) 147/88 (107) 147/88 Pulse Ox 98 97 96 O2 Delivery Room Air Room Air Room Air 05/03/17 11:17 Temp 97.7 97.7 Pulse 67 Resp 15 B/P (MAP) 125/74 (91) Pulse Ox 98 O2 Delivery Room Air Intake and Output 05/02/17 05/02/17 05/03/17 15:00 23:00 07:00 Intake Total 400 ml Output Total 100 ml Balance 400 ml -100 ml KALYN LOPEZ MD May 03, 2017 14:12
[2017-05-03] MEDS ORDERED: TOTAL PARENTERAL NUTRITION IV SCH ×10 (22:00)
[2017-05-03] MEDS ORDERED: AMINO ACIDS IV SCH ×10 (22:00)
[2017-05-03] MEDS ORDERED: DEXTROSE 70% IV SCH ×10 (22:00)
[2017-05-03] MEDS ORDERED: [UNRECOGNIZED DRUG - OTHER] IV SCH ×10 (22:00)
[2017-05-03] MEDS: TAMSULOSIN 0.4 MG CAP.ER.24H. PO SCH (22:38)
[2017-05-04 07:00] VITALS: BP 134/74
[2017-05-04] MEDS: ASPIRIN 325 MG TABLET PO SCH (10:44)
[2017-05-04] MEDS: FAMOTIDINE 20 MG TABLET. PO SCH (10:44)
[2017-05-04] MEDS: LOSARTAN POTASSIUM 50 MG TABLET. PO SCH (10:44)
[2017-05-04] MEDS: LACTOBACILLUS RHAMNOSUS GG 1 CAPSULE. PO SCH (10:44)
[2017-05-04] MEDS: MULTIVITAMIN with MINERAL TABLET. PO SCH (10:44)
[2017-05-04] MEDS: BISACODYL 10 MG SUPP.RECT. PR SCH (10:45)
[2017-05-04 11:00] VITALS: BP 124/79
--- NOTE | 2017-05-04 11:19 | PDOC ---
PROGRESS NOTES Chief Complaint Chief Complaint acute abdominal pain with acute appendicitis s/p open appendectomy Persistent ileus in an alcoholic Metabolic enceph resolved ETOH abuse mild COPD, hyperlipidemia BPH hypophosphatemia mild malnutrition post op sbo vs ileus anemia post 1 u PRBC during sx History of Present Illness History of Present Illness Looks good Eager to go home Jay removed yesterday PLAN: Await GS rounds, I think he might be able to go home today with no pT needs Vitals Vitals Vital Signs Date Time Temp Pulse Resp B/P (MAP) Pulse Ox O2 Delivery O2 Flow Rate FiO2 05/04/17 10:44 68 134/74 05/04/17 07:00 97.9 18 97 Room Air 97.9 Physical Exam General: Alert, Oriented X3, Cooperative, No acute distress Heart: Regular rate, Normal S1, Normal S2 Lungs: Clear Abdomen: Soft, Other (mild distention, NTTP, incision c/d/i, no erythema) Extremities: No clubbing, No cyanosis Skin: No rashes, No breakdown Review of Systems Review of Systems denies 14 pt reviewed Assessment and Plan Assessmemt and Plan Problems Medical Problems: (1) ETOH abuse Status: Acute Problems: Comment Review of Relevant I have reviewed the following items nika (where applicable) has been applied. Labs Microbiology 04/29/17 Stool Culture, Resulted Pending 04/29/17 Stool Culture Result 1 ([facility]), Resulted Pending 04/29/17 Campylobacter Antigen Assay - Preliminary, Resulted 04/29/17 Campylobactor Result 1 - Preliminary, Resulted 04/29/17 Shiga Toxin Test - Final, Resulted Medications Current Medications Sodium Chloride 1,000 ml @ 1,000 mls/hr 1X ONCE IV Last administered on 04/18 17:14; Start 04/18/17 at 17:00; Stop 04/18/17 at 17:59; Status DC Metronidazole 100 ml @ 100 mls/hr Q8HRS IV Last administered on 04/29/17 05: 39; Start 04/18/17 at 23:00; Stop 04/29/17 at 12:28; Status DC Piperacillin Sod/ Tazobactam Sod 3.375 gm/Dextrose 50 ml @ 100 mls/hr 1X ONCE IV ; Start 04/18/17 at 17:15; Stop 04/18/17 at 17:44; Status UNV Piperacillin Sod/ Tazobactam Sod (Zosyn) 3.375 gm 1X ONCE IVP Last administered on 04/18/17t 17:41; Start 04/18/17 at 17:15; Stop 04/18/17 at 17 :16; Status DC Metronidazole 100 ml @ 100 mls/hr 1X ONCE IV ; Start 04/18/17 at 17:15; Stop 04/18/17 at 18:14; Status DC Sevoflurane (Ultane) 60 ml STK-MED ONCE IH ; Start 04/18/17 at 17:36; Stop at 17:37; Status DC Fentanyl Citrate (Fentanyl 2ml Vial) 100 mcg STK-MED ONCE .ROUTE ; Start at 17:36; Stop 04/18/17 at 17:37; Status DC Neostigmine Methylsulfate (Bloxiverz) 10 mg STK-MED ONCE .ROUTE ; Start at 17:36; Stop 04/18/17 at 17:37; Status DC Succinylcholine Chloride (Anectine) 200 mg STK-MED ONCE .ROUTE ; Start at 17:36; Stop 04/18/17 at 17:37; Status DC Glycopyrrolate (Robinul) 1 mg STK-MED ONCE .ROUTE ; Start 04/18/17 at 17:37; Stop 04/18/17 at 17:38; Status DC Rocuronium [place] (Zemuron) 50 mg STK-MED ONCE .ROUTE ; Start 04/18/17 at 17: 37; Stop 04/18/17 at 17:38; Status DC Propofol 20 ml @ As Directed STK-MED ONCE IV ; Start 04/18/17 at 17:37; Stop 04/18/17 at 17:38; Status DC Lidocaine HCl (Lidocaine Pf 2% Vial) 5 ml STK-MED ONCE .ROUTE ; Start 04/18/17 at 17:37; Stop 04/18/17 at 17:38; Status DC Dexamethasone Sodium Phosphate (Decadron) 20 mg STK-MED ONCE .ROUTE ; Start at 17:37; Stop 04/18/17 at 17:38; Status DC Ondansetron HCl (Zofran) 4 mg STK-MED ONCE .ROUTE ; Start 04/18/17 at 17:37; Stop 04/18/17 at 17:38; Status DC Tamsulosin HCl (Flomax) 0.4 mg DAILY PO Last administered on 04/30/17 09:54; Start 04/19/17 at 09:00; Stop 04/30/17 at 11:29; Status DC Losartan Potassium (Cozaar) 50 mg DAILY PO Last administered on 04/30/17 09: 54; Start 04/19/17 at 09:00; Stop 04/30/17 at 11:35; Status DC Multivitamins 10 ml/Thiamine HCl 100 mg/Ringer's Solution 1,011 ml @ 250 mls/ hr 1X ONCE IV Last administered on 04/19/17 01:24; Start 04/18/17 at 19:00 ; Stop 04/18/17 at 23:02; Status DC Ondansetron HCl (Zofran) 4 mg PRN Q6HRS PRN IV NAUSEA/VOMITING; Start at 19:00; Stop 04/18/17 at 22:00; Status DC Fentanyl Citrate (Fentanyl 2ml Vial) 25 mcg PRN Q5MIN PRN IV MILD PAIN; Start 04/18/17 at 19:00; Stop 04/18/17 at 22:00; Status DC Fentanyl Citrate (Fentanyl 2ml Vial) 50 mcg PRN Q5MIN PRN IV MODERATE PAIN; Start 04/18/17 at 19:00; Stop 04/18/17 at 22:00; Status DC Morphine Sulfate 1 mg PRN Q10MIN PRN IV SEVERE PAIN; Start 04/18/17 at 19:00; Stop 04/18/17 at 22:00; Status DC Ringer's Solution 1,000 ml @ 30 mls/hr Q24H IV ; Start 04/18/17 at 18:50; Stop 04/19/17 at 06:49; Status DC Lidocaine HCl (Xylocaine-Mpf 1% Vial) 2 ml 1X PRN PRN ID IV START; Start 04/18 at 19:00; Stop 04/18/17 at 22:00; Status DC Hydromorphone HCl (Dilaudid) 0.5 mg PRN Q10MIN PRN IV SEV PAIN, Second choice; Start 04/18/17 at 19:00; Stop 04/18/17 at 22:00; Status DC Prochlorperazine Edisylate (Compazine) 5 mg PACU PRN PRN IV NAUSEA, MRX1; Start 04/18/17 at 19:00; Stop 04/18/17 at 22:00; Status DC Bupivacaine HCl/ Epinephrine Bitart (Sensorcain-Mpf Epi 0.5%-1:[id number]) 30 ml STK -MED ONCE .ROUTE ; Start 04/18/17 at 19:16; Stop 04/18/17 at 19:17; Status DC Fentanyl Citrate (Fentanyl 2ml Vial) 100 mcg STK-MED ONCE .ROUTE ; Start at 19:49; Stop 04/18/17 at 19:50; Status DC Phenylephrine HCl 1 mg STK-MED ONCE IV ; Start 04/18/17 at 20:04; Stop at 20:05; Status DC Cellulose 1 each STK-MED ONCE .ROUTE Last administered on 04/18/17t 21:07; Start 04/18/17 at 20:35; Stop 04/18/17 at 20:36; Status DC Cellulose 1 each STK-MED ONCE .ROUTE ; Start 04/18/17 at 21:26; Stop 04/18/17 at 21:27; Status DC Hydromorphone HCl 30 ml @ 0 mls/hr CONT PRN PRN IV PROTOCOL Last administered on 04/18/17t 23:53; Start 04/18/17 at 22:30; Stop 04/21/17 at 09:03; Status DC Morphine Sulfate 2 mg STK-MED ONCE .ROUTE ; Start 04/18/17 at 22:47; Stop at 22:48; Status DC Ondansetron HCl (Zofran) 4 mg PRN Q6HRS PRN IV NAUSEA/VOMITING; Start at 23:00; Stop 04/19/17 at 06:00; Status DC Fentanyl Citrate (Fentanyl 2ml Vial) 25 mcg PRN Q5MIN PRN IV MILD PAIN; Start 04/18/17 at 23:00; Stop 04/19/17 at 01:45; Status DC Fentanyl Citrate (Fentanyl 2ml Vial) 50 mcg PRN Q5MIN PRN IV MODERATE PAIN; Start 04/18/17 at 23:00; Stop 04/19/17 at 01:45; Status DC Morphine Sulfate 1 mg PRN Q10MIN PRN IV SEVERE PAIN Last administered on 22:53; Start 04/18/17 at 23:00; Stop 04/19/17 at 01:45; Status DC Hydromorphone HCl (Dilaudid) 0.5 mg PRN Q10MIN PRN IV SEV PAIN, Second choice Last administered on 04/18/17 23:30; Start 04/18/17 at 23:00; Stop 04/19/17 at 01:45; Status DC Prochlorperazine Edisylate (Compazine) 5 mg PACU PRN PRN IV NAUSEA, MRX1 Last administered on 04/18/17 22:59; Start 04/18/17 at 23:00; Stop 04/19/17 at 01 :45; Status DC Albuterol/ Ipratropium (Duoneb) 3 ml 1X PACU PRN NEB SEE COMMENTS Last administered on 04/18/17 23:13; Start 04/18/17 at 23:15; Stop 04/19/17 at 23 :14; Status DC Hydralazine HCl (Apresoline) 10 mg 1X PACU PRN PO HYPERTENSION, SEE COMMENTS; Start 04/18/17 at 23:30; Stop 04/19/17 at 01:45; Status DC Labetalol HCl (Normodyne) 20 mg PRN Q2HR PRN IVP HYPERTENSION, SEE COMMENTS; Start 04/19/17 at 01:45; Stop 04/19/17 at 15:19; Status DC Acetaminophen (Tylenol) 650 mg PRN Q6HRS PRN PO FEVER Last administered on 21:59; Start 04/19/17 at 15:30 Ondansetron HCl (Zofran) 4 mg PRN Q6HRS PRN IV NAUSEA/VOMITING Last administered on 04/28/17 19:19; Start 04/19/17 at 15:30 Morphine Sulfate 2 mg PRN Q2HR PRN IV PAIN; Start 04/19/17 at 15:30; Stop at 10:44; Status DC Tramadol HCl (Ultram) 50 mg PRN Q6HRS PRN PO PAIN Last administered on 21:59; Start 04/19/17 at 15:30 Hydralazine HCl (Apresoline Inj) 10 mg PRN Q4HRS PRN IVP ELEVATED BP, SEE COMMENTS Last administered on 04/19/17 16:15; Start 04/19/17 at 15:30 Docusate Sodium (Colace) 100 mg PRN DAILY PRN PO CONSTIPATION Last administered on 05/04/17 10:44; Start 04/19/17 at 15:30 Lorazepam (Ativan) 2 mg PRN Q4HRS PRN IV ANXIETY / AGITATION Last administered on 04/24/17 19:15; Start 04/19/17 at 15:30; Stop 04/25/17 at 14:58; Status DC Multivitamins 10 ml/Thiamine HCl 100 mg/Dextrose/ Lactated Ringer's 1,011 ml @ 100 mls/hr Q24H IV ; Start 04/19/17 at 16:00; Stop 04/19/17 at 16:00; Status DC Amino Acids/ Glycerin/ Electrolytes 1,000 ml @ 80 mls/hr [id number] IV Last administered on 04/26/17 05:35; Start 04/19/17 at 15:30; Stop 04/26/17 at 12 :24; Status DC Enoxaparin Sodium (Lovenox 40mg Syringe) 40 mg Q24H SQ Last administered on 13:36; Start 04/19/17 at 15:30; Stop 04/28/17 at 07:52; Status DC Famotidine (Pepcid Vial) 20 mg QHS IVP Last administered on 04/23/17 20:47; Start 04/19/17 at 21:00; Stop 04/24/17 at 15:06; Status DC Multivitamins 10 ml/Thiamine HCl 100 mg/Folic Acid 1 mg/Dextrose/ Lactated Ringer's 1,011.2 ml @ 100.02 mls/hr Q24H IV Last administered on 04/22/17 16 :55; Start 04/19/17 at 16:00; Stop 04/23/17 at 02:07; Status DC Sodium Phosphate 20 mmol/Dextrose 256.6667 ml @ 64.167 m... 1X ONCE IV Last administered on 04/20/17 09:03; Start 04/20/17 at 09:00; Stop 04/20/17 at 12 :59; Status DC Lorazepam (Ativan) 0.5 mg PRN 1X PRN IV ANXIETY / AGITATION Last administered on 04/21/17 02:00; Start 04/21/17 at 01:00; Stop 04/25/17 at 14:58; Status DC Diphenhydramine HCl (Benadryl) 25 mg PRN 1X PRN IVP INSOMNIA Last administered on 04/23/17 20:47; Start 04/21/17 at 01:00 Acetaminophen (Acetaminophen Supp) 650 mg PRN Q6HRS PRN AK MILD PAIN / TEMP; Start 04/21/17 at 01:00 Sodium Chloride 1,000 ml @ 75 mls/hr [id number] IV Last administered on 06:22; Start 04/21/17 at 09:15; Stop 04/24/17 at 16:57; Status DC Ciprofloxacin/ Dextrose 200 ml @ 200 mls/hr Q12HR IV Last administered on 09:29; Start 04/21/17 at 13:30; Stop 04/29/17 at 12:28; Status DC Lorazepam (Ativan) 1 mg PRN Q2HR PRN IV Agitation, Anxiety Last administered on 05/03/17 23:14; Start 04/21/17 at 15:30 Hydromorphone HCl (Dilaudid) 0.5 mg PRN Q4HRS PRN IVP SEVERE PAIN Last administered on 05/01/17 19:54; Start 04/22/17 at 11:45 Famotidine (Pepcid) 20 mg QHS PO Last administered on 04/27/17 21:11; Start 04/24/17 at 21:00; Stop 04/28/17 at 07:52; Status DC Lactobacillus Rhamnosus (Culturelle) 1 cap BID PO Last administered on 10:44; Start 04/24/17 at 21:00 Bisacodyl (Dulcolax Supp) 10 mg 1X ONCE AK Last administered on 04/25/17 12: 27; Start 04/25/17 at 11:00; Stop 04/25/17 at 11:01; Status DC Morphine Sulfate 2 mg PRN Q2HR PRN IV MODERATE PAIN Last administered on 00:06; Start 04/25/17 at 10:44 Info 1 each PRN DAILY PRN MC SEE COMMENTS Last administered on 05/03/17 13:55 ; Start 04/26/17 at 12:30 Sodium Chloride 90 meq/Potassium Chloride 50 meq/ Potassium Phosphate 13.6 mmol/ Magnesium Sulfate 10 meq/ Calcium Gluconate 10 meq/ Multivitamins 10 ml/Chromium / Copper/Manganese/ Seleni/Zn 1 ml/ Total Parenteral Nutrition/Amino Acids/ Dextrose/ Fat Emulsion Intravenous 1,512 ml @ 63 mls/hr TPN CONT IV Last administered on 04/26/17 22:13; Start 04/26/17 at 22:00; Stop 04/27/17 at 21 :59; Status DC Info 1 each PRN DAILY PRN MC SEE COMMENTS; Start 04/26/17 at 14:15; Status UNV Nicotine (Nicoderm Cq 21mg) 1 patch PRN DAILY PRN TD SMOKING CESSATION; Start 04/26/17 at 16:00 Sodium Chloride 90 meq/Potassium Chloride 50 meq/ Potassium Phosphate 13.6 mmol/ Magnesium Sulfate 10 meq/ Calcium Gluconate 10 meq/ Multivitamins 10 ml/Chromium / Copper/Manganese/ Seleni/Zn 1 ml/ Total Parenteral Nutrition/Amino Acids/ Dextrose/ Fat Emulsion Intravenous 1,512 ml @ 63 mls/hr TPN CONT IV Last administered on 04/27/17 22:50; Start 04/27/17 at 22:00; Stop 04/28/17 at 21 :59; Status DC Famotidine (Pepcid Vial) 20 mg QHS IVP Last administered on 04/29/17 20:55; Start 04/28/17 at 21:00; Stop 04/30/17 at 11:32; Status DC Sodium Chloride 90 meq/Potassium Chloride 50 meq/ Potassium Phosphate 13.6 mmol/ Magnesium Sulfate 10 meq/ Calcium Gluconate 10 meq/ Multivitamins 10 ml/Chromium / Copper/Manganese/ Seleni/Zn 1 ml/ Total Parenteral Nutrition/Amino Acids/ Dextrose/ Fat Emulsion Intravenous 1,512 ml @ 63 mls/hr TPN CONT IV Last administered on 04/28/17 20:12; Start 04/28/17 at 22:00; Stop 04/29/17 at 21 :59; Status DC Sodium Chloride 90 meq/Potassium Chloride 50 meq/ Potassium Phosphate 13.6 mmol/ Magnesium Sulfate 10 meq/ Calcium Gluconate 10 meq/ Multivitamins 10 ml/Chromium / Copper/Manganese/ Seleni/Zn 1 ml/ Total Parenteral Nutrition/Amino Acids/ Dextrose/ Fat Emulsion Intravenous 1,512 ml @ 63 mls/hr TPN CONT IV Last administered on 04/29/17 20:55; Start 04/29/17 at 22:00; Stop 04/30/17 at 21 :59; Status DC Magnesium Sulfate/ Dextrose 50 ml @ 25 mls/hr 1X ONCE IV Last administered on 04/29/17 13:32; Start 04/29/17 at 13:00; Stop 04/29/17 at 14:59; Status DC Bisacodyl (Dulcolax Supp) 10 mg DAILY AK Last administered on 05/04/17 10:45 ; Start 04/30/17 at 09:00 Aspirin (Arin Aspirin) 325 mg [id number] PO Last administered on 05/04/17 10 :44; Start 04/30/17 at 12:00 Tamsulosin HCl (Flomax) 0.4 mg QHS PO Last administered on 05/03/17 22:38; Start 04/30/17 at 21:00 Losartan Potassium (Cozaar) 100 mg DAILY PO Last administered on 05/04/17 10: 44; Start 04/30/17 at 12:00 Famotidine (Pepcid) 20 mg BID PO Last administered on 05/04/17 10:44; Start 04/30/17 at 12:00 Multivitamins (Thera M Plus) 1 tab DAILY PO Last administered on 05/04/17 10: 44; Start 04/30/17 at 12:00 Sodium Chloride 90 meq/Potassium Chloride 50 meq/ Potassium Phosphate 13.6 mmol/ Magnesium Sulfate 10 meq/ Calcium Gluconate 10 meq/ Multivitamins 10 ml/Chromium / Copper/Manganese/ Seleni/Zn 1 ml/ Total Parenteral Nutrition/Amino Acids/ Dextrose/ Fat Emulsion Intravenous 1,512 ml @ 63 mls/hr TPN CONT IV Last administered on 04/30/17 20:50; Start 04/30/17 at 22:00; Stop 05/01/17 at 21 :59; Status DC Losartan Potassium (Cozaar) 50 mg 1X ONCE PO Last administered on 04/30/17 13:03; Start 04/30/17 at 12:30; Stop 04/30/17 at 12:31; Status DC Iohexol (Omnipaque 350 Mg/ml) 200 ml 1X ONCE PO Last administered on 07:15; Start 05/01/17 at 07:15; Stop 05/01/17 at 07:17; Status DC Info (Do NOT chart on this entry -- for MONITORING) 1 each PRN DAILY PRN MC SEE COMMENTS; Start 05/01/17 at 07:00; Stop 05/03/17 at 06:59; Status Cancel Iohexol (Omnipaque 300 Mg/ml) 300 ml 1X ONCE PO ; Start 05/01/17 at 09:00; Stop 05/01/17 at 09:02; Status DC Info (Do NOT chart on this entry -- for MONITORING) 1 each PRN DAILY PRN MC SEE COMMENTS; Start 05/01/17 at 09:15; Stop 05/03/17 at 09:14; Status DC Sodium Chloride 90 meq/Potassium Chloride 50 meq/ Potassium Phosphate 13.6 mmol/ Magnesium Sulfate 10 meq/ Calcium Gluconate 10 meq/ Multivitamins 10 ml/Chromium / Copper/Manganese/ Seleni/Zn 1 ml/ Total Parenteral Nutrition/Amino Acids/ Dextrose/ Fat Emulsion Intravenous 1,512 ml @ 63 mls/hr TPN CONT IV Last administered on 05/01/17 21:33; Start 05/01/17 at 22:00; Stop 05/02/17 at 21 :59; Status DC Sodium Chloride 90 meq/Potassium Chloride 50 meq/ Potassium Phosphate 13.6 mmol/ Magnesium Sulfate 10 meq/ Calcium Gluconate 10 meq/ Multivitamins 10 ml/Chromium / Copper/Manganese/ Seleni/Zn 1 ml/ Total Parenteral Nutrition/Amino Acids/ Dextrose/ Fat Emulsion Intravenous 1,512 ml @ 63 mls/hr TPN CONT IV Last administered on 05/02/17 20:21; Start 05/02/17 at 22:00; Stop 05/03/17 at 21 :59; Status DC Sodium Chloride 90 meq/Potassium Chloride 50 meq/ Potassium Phosphate 13.6 mmol/ Magnesium Sulfate 10 meq/ Calcium Gluconate 10 meq/ Multivitamins 10 ml/Chromium / Copper/Manganese/ Seleni/Zn 1 ml/ Total Parenteral Nutrition/Amino Acids/ Dextrose/ Fat Emulsion Intravenous 1,512 ml @ 63 mls/hr TPN CONT IV Last administered on 05/03/17t 22:37; Start 05/03/17 at 22:00; Stop 05/04/17 at 21 :59 Active Scripts Active Reported [Ranitidine] 150 150 Mg PO BID [Flomax] 0.4 0.4 Mg PO DAILY [Losartan] 100 100 Mg PO DAILY [Vitamin] one 1 Tab PO DAILY [Aspirin] 325 325 Mg PO DAILY Vitals/I & O Vital Sign - Last 24 Hours 05/03/17 05/03/17 05/03/17 05/03/17 15:01 19:00 20:00 Temp 97.7 97.5 97.9 97.7 97.5 97.9 Pulse 67 81 73 Resp 15 16 18 B/P (MAP) 125/74 (91) 124/61 (82) 151/92 (111) Pulse Ox 98 96 100 O2 Delivery Room Air Room Air Room Air Room Air 05/03/17 05/04/17 05/04/17 05/04/17 22:42 03:00 07:00 10:44 Temp 97.5 97.9 97.5 97.9 Pulse 71 68 68 Resp 18 18 18 B/P (MAP) 143/80 (101) 134/74 (94) 134/74 Pulse Ox 99 97 O2 Delivery Room Air Room Air Room Air Intake and Output 05/03/17 05/03/17 05/04/17 15:00 23:00 07:00 Intake Total 370 ml Output Total 700 ml 1100 ml 500 ml Balance -700 ml -1100 ml -130 ml KALYN LOPEZ MD May 04, 2017 11:19
--- NOTE | 2017-05-04 11:27 | PDOC3 ---
Discharge Summary Visit Information Date of Admission: Apr 18, 2017 Date of Discharge: May 04, 2017 Admitting Diagnosis Comment: acute abdominal pain with acute appendicitis s/p open appendectomy Persistent ileus in an alcoholic Metabolic enceph resolved ETOH abuse mild COPD, hyperlipidemia BPH hypophosphatemia mild malnutrition post op sbo vs ileus anemia post 1 u PRBC during sx Final Diagnosis Problems Medical Problems: (1) ETOH abuse Status: Acute Brief Hospital Course Allergies Allergies Coded Allergies Type Severity Reaction Last Updated Verified No Known Drug Allergies 04/18/17 No Vital Signs Vital Signs Date Time Temp Pulse Resp B/P (MAP) Pulse Ox O2 Delivery O2 Flow Rate FiO2 05/04/17 11:00 98.1 71 18 124/79 (94) 96 Room Air 98.1 Brief Hospital Course Mr. Lanier is a 77 old male who was admitted for plain appy, BUt course got prolonged and complicated bec of ileus in this heavy alcoholic, HE was managed conservatively, TPN etc, NPO etc, would vomit and have abd distention, HE stayed over 2 weeks with us, was actually being screened for lTAC but now able to tolerate GI soft hyence being sent home. NO pT needs Dw RN and GS seen an dexamined time 32 mins Discharge Information Condition at Discharge: Improved, Stable Follow Up: Weeks (2 weeks GS) Disposition/Orders: D/C to Home Scheduled [Aspirin], 325 MG PO DAILY, (Reported) [Flomax], 0.4 MG PO DAILY, (Reported) [Losartan], 100 MG PO DAILY, (Reported) [Ranitidine], 150 MG PO BID, (Reported) [Vitamin], 1 TAB PO DAILY, (Reported) KALYN LOPEZ MD May 04, 2017 11:27
== END 2017-05-04 16:15 | disposition home or self-care (01) | DRG 853 ==
LOC: ER 16:27 → 4 NORTH 17:09
PROVIDERS: ADMIT Internal Medicine; ATTEND Internal Medicine
PROC: 0DJD4ZZ Inspection of Lower Intestinal Tract, Percutaneous Endoscopic Approach (ICD-10-PCS; 2017-04-18)
PROC: 30233N1 Transfusion of Nonautologous Red Blood Cells into Peripheral Vein, Percutaneous Approach (ICD-10-PCS; 2017-04-18)
PROC: 02HV33Z Insertion of Infusion Device into Superior Vena Cava, Percutaneous Approach (ICD-10-PCS; 2017-04-18)
PROC: 0DTJ0ZZ Resection of Appendix, Open Approach (ICD-10-PCS; principal; 2017-04-18 18:30)
DX: A41.9 Sepsis, unspecified organism (principal); K35.3 Acute appendicitis with localized peritonitis; K56.7 Ileus, unspecified; E44.1 Mild protein-calorie malnutrition; E83.39 Other disorders of phosphorus metabolism; D64.9 Anemia, unspecified; J44.9 Chronic obstructive pulmonary disease, unspecified; E78.5 Hyperlipidemia, unspecified; I10 Essential (primary) hypertension; K21.9 Gastro-esophageal reflux disease without esophagitis; N40.0 Benign prostatic hyperplasia without lower urinary tract symptoms; F10.20 Alcohol dependence, uncomplicated; Z90.49 Acquired absence of other specified parts of digestive tract; K74.60 Unspecified cirrhosis of liver; K36 Other appendicitis; Z68.26 Body mass index [BMI] 26.0-26.9, adult; R14.0 Abdominal distension (gaseous)
CPT/HCPCS: 36415; 36569; 74000; 74021; 74022; 74250; 80048; 80053; 80307; 81001; 83690; 83735; 84100; 84478; 85007; 85014; 85018; 85025; 85610; 85730; 86850; 86900; 86901; 86920; 87045; 87324; 88304; 94640; 96361; 96374; G0480; J0330; J0360; J0610; J0744; J0780; J1100; J1170; J1200; J1650; J2060; J2270; J2370; J2405; J2543; J2704; J2710; J3010; J3475; J3490; J7030; J7060; J7120; J7620; P9016; Q9967; S0028; 74020; 97116; 97530; 97535; 99285-25; G0479; J2001

== ENCOUNTER → 2017-04-18 | Outpatient (CLI) | payer BC, MEDICAID ==
[~2017-04-18] MED LIST: ALBUMIN HUMAN 5% 500 ML IV ONE; Aspirin PO; Flomax PO; IOHEXOL 240 MG/ML 100 ML VIAL. IV ONE; IOHEXOL 300 MG/ML 50 ML VIAL. PO ONE; Losartan PO; PHENYLEPHRINE in 0.9% NACL PF 1 MG/10 ML DISP.SYRIN. IV ONE; ROCURONIUM 50 MG/5 ML VIAL. ONE; Ranitidine PO; Vitamin PO; fentaNYL PF VIAL 100 MCG/2 ML VIAL ONE
--- NOTE | 2017-04-18 15:35 | RAD ---
Indication: Right upper quadrant and lower abdominal pain. Bloating. Symptoms for one month. Alcohol abuse. Technique: Axial images and coronal and sagittal reformatted images are provided. Oral contrast and 75 mL of intravenous Omnipaque 300 was administered without complication. Comparison is from August 14, 2016. One or more of the following individualized dose reduction techniques were utilized for this examination: 1. Automated exposure control 2. Adjustment of the mA and/or kV according to patient size 3. Use of iterative reconstruction technique Findings: Areas of probable fibrosis in the lung bases are noted peripherally, probably has a component of atelectasis as well. Calcified granuloma on the right is noted. There is no pleural effusion. Calcified right hilar lymph nodes are noted. Heart is not enlarged. Coronary artery calcifications are noted. There is no discrete hepatic lesion. There is mild fatty infiltration of the liver. Gallbladder is absent. Spleen is not enlarged, a few benign calcifications noted in the spleen. The pancreas and the adrenals are unremarkable. The kidneys are symmetrically perfused. There is mild atheromatous disease in the abdominal aorta without aneurysm. There is no small bowel obstruction or mural thickening. There are diverticula in the sigmoid colon. There are no findings of diverticulitis. There is a blind-ending tubular structure extending from the cecum which is 11 mm in diameter with adjacent inflammatory stranding and mild wall hyperemia. A few adjacent lymph nodes are noted, mildly prominent. There is no abscess or free air. Bladder is unremarkable. Calcified phleboliths are noted. Prostate is enlarged. Prostate calcifications are noted. There are degenerative changes in the spine with grade 1 anterolisthesis at L3-L4. Impression: 1. Findings of acute appendicitis. No abscess or free air. Report was called to the ordering clinician, Eulalia Ross, at 1528 hours. 2. Mild fatty infiltration of the liver. 3. A few diverticula in the colon. 4. Coronary artery calcifications.
== END | disposition home or self-care (01) ==
LOC: CT 12:55
PROVIDERS: ATTEND Nurse Practitioner Family
DX: K35.80 Unspecified acute appendicitis (principal); K57.30 Diverticulosis of large intestine without perforation or abscess without bleeding; I25.10 Atherosclerotic heart disease of native coronary artery without angina pectoris; F10.10 Alcohol abuse, uncomplicated; K76.0 Fatty (change of) liver, not elsewhere classified
CPT/HCPCS: 74177; J2370; J3010; P9045

== ENCOUNTER → 2017-05-25 | Outpatient (CLI) | payer BC ==
[2017-05-04 11:00] VITALS: BP 124/79
--- NOTE | 2017-05-25 16:43 | KCIC ---
MRI Lumbar Spine without contrast History: Lumbar degenerative disc disease, left foot drop, leg weakness, previous abdominal surgery Technique: Multiplanar, multi sequential noncontrast MR imaging was performed of the lumbar spine. Contrast: None Comparison: None Findings: Lumbar vertebral body stature is overall preserved, Schmorl's nodes most notable of L2-3. There is grade 1 anterior spondylolisthesis at L3-4. There is advanced degenerative disc disease at L4-5 and L5-S1, to a somewhat lesser degree at L2-3 and L3-4. There is degenerative endplate variably L2-3, L4-5, and L5-S1 with some associated variable endplate edema probably reactive/degenerative in etiology. Conus terminates at L1-2. T12-L1: Neural foramina and spinal canal are adequate. L1-L2: There is mild facet degenerative change. Spinal canal is adequate. There is minimal narrowing of the right neural foramen, left neural foramen adequate. L2-L3: There is moderate to severe facet degenerative change and buckling of the ligamentum flavum. There is broad posterior disc osteophyte complex and shallow broad posterior protrusion. There is prominence of posterior epidural fat. Combination of findings results in moderate to severe spinal stenosis, left greater than right lateral recess stenosis. There is impingement of the descending left L3 nerve root in the left lateral recess. There is buckling of the nerve roots above this level. There is moderate to severe narrowing of the left neural foramen primarily from posteriorly by facet, [id number] narrowing on the right. L3-L4: There is severe facet degenerative change and moderate to severe buckling of the ligamentum flavum. There is prominence of posterior epidural fat. There is mild partial uncovering of the posterior aspect of the disc due to spondylolisthesis with minimal superimposed bulge. Combination of findings results in moderate to severe spinal stenosis, some preserved subarachnoid space. There is right greater than left lateral recess stenosis, contact of the descending L4 nerve roots greater on the right. There is mild neural foramina compromise bilaterally. L4-L5: There is minimal disc osteophyte complex. There is [id number] facet degenerative change and mild buckling of the ligamentum flavum. There is mild narrowing of the far left lateral recess. There is hqyw-[id number] right and moderate left neural foramina compromise, disc osteophyte complex near the proximal extraforaminal left L4 nerve root without significant displacement. L5-S1: Spinal canal is adequate. There is mild facet degenerative change. Disc osteophyte complex centrally into the inferior neural foramina. There is [id number] neural foramina compromise bilaterally. Impression: 1. There is moderate to severe spinal stenosis at L2-3 and L3-4 as described, lateral recess stenosis at these levels. 2. There is advanced degenerative disc disease at L4-5 and L5-S1 and to a somewhat lesser degree at L2-3 and L3-4. There is multilevel spondylosis. Multilevel endplate edema is likely reactive/degenerative in etiology. 3. There is neural foramina compromise as stated greatest on the left at L2-3, to lesser degree bilaterally at L4-5 and on the right at L2-3. 4. There is multilevel facet degenerative change. There is grade 1 anterior spondylolisthesis at L3-4. Electronically signed by: Owen Guzman MD (05/25/2017 4:40 PM) [id number]
== END | disposition home or self-care (01) ==
LOC: KCIC MRI 15:14
PROVIDERS: ATTEND Family Medicine
DX: M51.36 Other intervertebral disc degeneration, lumbar region (principal); M43.16 Spondylolisthesis, lumbar region; M48.061 Spinal stenosis, lumbar region without neurogenic claudication; M51.37 Other intervertebral disc degeneration, lumbosacral region
CPT/HCPCS: 72148